=== PATIENT | male | born 1970 | race Caucasian/White ===

== ENCOUNTER 2016-10-27 17:13 | Emergency (ER) | payer OTHER ==
[~2016-10-27] VITALS: Ht 172.7 cm; Wt 125.0 kg
[~2016-10-27 17:13] MED LIST: ALBU8.5H2 INHALATION; ASPI-973 PO; ATOR80TA PO; CLOP75TA28 PO; DOXA4TAB3 PO; FINA5TAB9 PO; FLUO20CA25 PO; FURO40TA4 PO; GABA-502 PO; INSU100V28 SUBQ; INSU100V7 SUBQ; ISOS60TA2 PO; LISI2.5T PO; LOPE2CAP PO; METO25TA99 PO; NITR0.4T6 SL; OXYC1TAB91 PO; PANT20TA2 PO; POTA20TA16 PO; TAMS0.4C29 PO
[2016-10-27 17:14] VITALS: BP 109/55; PULSE 83; RESP 18; O2SAT 100
[2016-10-27 17:35] LABS: BASOPHILS % (AUTO) 0.2 % (0-3); EOSINOPHILS % (AUTO) 1.5 % (0-5); MONOCYTES % (AUTO) 7.8 % (4-12); Mean Corpuscular Hemoglobin 30.4 pg (27.0-35.0); Mean Corpuscular Volume 89.5 fL (81-100); NEUTROPHILS % (AUTO) 68.4 % (40-74); Platelet Count 192 bil/L (150-400)
--- NOTE | 2016-10-27 17:35 | ED.REPORT ---
HPI-Chest Pain 40 and Over Date of Service Oct 27, 2016 ED Provider: Darling Price MD A 46 year old male with a history of smoking, CAD, multiple stents, syncope, diabetes with neuropathy, CHF, stroke, and COPD is brought to the ED via EMS due to chest pain and syncope. The chest pain began at 12:30 today as a sharp, stabbing pain accompanied by shortness of breath. The pt took Nitro, which reduced the pain to a throbbing ache. He experienced a syncopal episode one hour after taking the Nitro, preceded by dizziness and returning chest pain. The pain has been a constant ache since. The pt admits to neck pain, but denies nausea, vomiting, or back pain. He has had nine stents placed in the last year, the last of which was four months ago. Nursing Notes Stated Complaint: CHEST PAIN Chief Complaint: Chest Pain Nursing Notes Reviewed: Yes Allergies: Coded Allergies: Honey Bee (Verified Allergy, Severe, anaphylaxis, 10/27/16) sumatriptan (Verified Allergy, Intermediate, Shakes and burning, 10/27/16) TAPE (Verified Allergy, Mild, blisters, 10/27/16) Scheduled Aspirin (Aspirin) 81 Mg Tablet 81 MG PO DAILY Atorvastatin (Lipitor) 80 Mg Tablet 80 MG PO HS Clopidogrel (Clopidogrel) 75 Mg Tablet 75 MG PO DAILY Doxazosin Mesylate (Doxazosin Mesylate) 4 Mg Tablet 4-8 MG PO HS Finasteride (Finasteride) 5 Mg Tablet 5 MG PO DAILY Fluoxetine (Fluoxetine) 20 Mg Capsule 20 MG PO DAILY Furosemide (Furosemide) 40 Mg Tablet 40 MG PO BID Gabapentin (Gabapentin) 300 Mg Capsule 1,200 MG PO TID Insulin Glargine (Lantus U100 Insulin Vial) 100 Unit/Ml Vial 100 UNIT SUBQ BID Insulin Regular, Human (HUMulin-R U100 Insulin Vial) 100 Unit/1 Ml Vial 80 UNIT SUBQ BIDAC Isosorbide MN ER (Isosorbide MN ER) 60 Mg Tab.er.24h 60 MG PO DAILY Lisinopril (Lisinopril) 2.5 Mg Tablet 2.5 MG PO DAILY Metoprolol Succinate ER (Metoprolol Succinate ER) 25 Mg Tab.er.24h 12.5 MG PO DAILY Pantoprazole DR (Pantoprazole DR) 20 Mg Tablet.dr 20 MG PO DAILY Potassium Chloride (Potassium Chloride) 20 Meq Tab.er.prt 20 MEQ PO DAILY Tamsulosin ER (Tamsulosin ER) 0.4 Mg Cap.er.24h BID Scheduled PRN Albuterol HFA (Proair HFA) 8.5 Gm Hfa.aer.ad 2 PUFFS INHALATION QID PRN PRN For Shortness of Breath Loperamide (Loperamide) 2 Mg Capsule 2-4 MG PO TID PRN PRN For Diarrhea or Loose Stool Nitroglycerin SL (Nitroglycerin SL) 0.4 Mg Tab.subl 0.4 MG SL Q5MIN PRN PRN For Chest Pain Oxycodone HCl/Acetaminophen (Endocet 10-325 mg Tablet) 1 Each Tablet 1-2 EACH PO Q4H PRN PRN For Pain General Time Seen by MD: 17:34 Chief Complaint Chest pain Hx Obtained From: Patient, EMS Arrived By: Ambulance Sudden in Onset?: Yes Onset Occurred: 5 - 8 hours ago Symptom Duration: Since onset Recent Healthcare: Recent doctor visit, Recent hospitalization Similar Sx Previous: Yes Past Medical History Past Medical History Notes: Patient states has had "nine stents" placed at [facility] 08/01/2016, 08/04/16, and 08/26/16 Past Medical History CAD - multiple stents, cardiac caths 02/14, 03/12, 04/11, ad 04/17 w/stent placed to proximal LAD overlapping prior stent and "plavix non-responder" Syncope Type two diabetes with neuropathy Chronic back and leg pain Lower extremity DVT "years ago" per patient, details unclear History of migraines BPH Kidney Stones On Warfarin and Plavix HTN [place] 2014 Reports: COPD, Congestive heart failure, Stroke Reports: Heroin use Past Surgical History Shoulder surgery (joint replacement) Left knee surgery Ganglion cyst in right hand Cardiac stents ("x9" - at [facility]) Reports: Cholecystectomy Family History Both of the patient's parents are still alive Smoking History Current Every Day Smoker Social History Alcohol Use: Denies alcohol use ("not in many years") Drug Use: Denies drug use Other Social History: Good social support, , Local resident 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 Physical Exam Initial Vital Signs Vital Signs (First) Date Time Temp Pulse Resp B/P Pulse Ox O2 Delivery O2 Flow Rate FiO2 10/27/16 17:14 36.8 83 18 109/55 100 Room Air Initial VS: Reviewed, Vital signs normal General/Constitutional: Awake, Alert Respiratory / Chest: Atraumatic, Breath sounds NL, Breath sounds = bilat, No respiratory distress Cardiovascular: Heart rate NL, Regular rhythm, Heart sounds NL Abdomen: Atraumatic, Soft, No guarding, No rebound mild epigastric tenderness Neck: Atraumatic, Supple, Full range of motion generalized c-spine tenderness Back: Atraumatic, Full range of motion Lower Extremity / Pelvis / MS: Atraumatic, Full range of motion Skin: Atraumatic, Color NL, No rash, Warm, Dry Neurologic: Oriented X3, Speech NL, No motor deficits, No sensory deficits Psychiatric: Affect NL, Mood NL Head / Eyes: Atraumatic, Normocephalic, PERRL, EOMI ENT: Atraumatic, Airway patent Mouth: Positive: Mucous membranes dry Upper Extremity / MS: Atraumatic, Full range of motion Interpretation & Diagnostics Lab Results Interpretation Result Diagram: 10/27/16 1725 10/27/16 1725 Test 10/27/16 17:25 10/27/16 19:00 White Blood Count 9.5th/mm3 (3.8-10.1) Red Blood Count 4.38mil/mm3 (4.40-5.80) Hemoglobin 13.3g/dL (13.8-17.2) Hematocrit 39.2% (41.0-50.0) Mean Corpuscular Volume 89.5fL (81-100) Mean Corpuscular Hemoglobin 30.4pg (27.0-35.0) Mean Corpuscular Hemoglobin Concent 33.9% (32.0-37.0) Red Cell Distribution Width 13.3% (12.3-15.4) Platelet Count 192bil/L (150-400) Neutrophils (%) (Auto) 68.4% (40-74) Lymphocytes (%) (Auto) 22.0% (14-46) Monocytes (%) (Auto) 7.8% (4-12) Eosinophils (%) (Auto) 1.5% (0-5) Basophils (%) (Auto) 0.2% (0-3) D-Dimer 0.5mg/L (<0.50) Sodium Level 135mEq/L (134-144) Potassium Level 3.8mEq/L (3.5-5.2) Chloride Level 99mEq/L (97-108) Carbon Dioxide Level 19mmol/L (18-29) Blood Urea Nitrogen 14mg/dL (6-24) Creatinine 0.92mg/dL (0.76-1.27) Estimat Glomerular Filtration Rate 93mL/min (>59) Glucose Level 384mg/dL (60-99) Calcium Level 8.6mg/dL (8.5-10.1) Magnesium Level 1.7mg/dL (1.6-2.6) Total Bilirubin 0.2mg/dL (0.0-1.2) Aspartate Amino Transf (AST/SGOT) 21U/L (0-50) Alanine Aminotransferase (ALT/SGPT) 16U/L (0-44) Alkaline Phosphatase 89U/L (25-150) Total Protein 7.2g/dL (6.4-8.4) Albumin 3.5g/dL (3.4-5.0) Lipase 5U/L (13-60) Hold Pereyra Top Tube Received (Received) Troponin T < 0.010ug/L (0.0-0.011) ECG Interpretation ECG Interpretation: normal sinus rhythm with a rate of 74 no change from previous dated 09/2016 Time: 17:38 Interpreted by: ED physician ECG Interpretation: normal sinus rhythm with a rate of 73 ventricular premature complex no acute change Time: 20:08 Interpreted by: ED physician X-Ray Chest Interpretation Chest Xray Interpretation: IMPRESSION: No acute cardiopulmonary disease process. Dictated by: Cindy Gross MD, PhD on 10/27/2016 at 17:54 Approved by: Cindy Gross MD, PhD on 10/27/2016 at 17:54 Interpretation / Wet Read by: Interpret - Radiologist Re-Eval/Medical Decision Med Decision/Clinical Course The patient states that he had 4 stents placed 4 months ago, and looking all records he had a normal stress test less than a week ago. The patient's pain is atypical and his evaluation here was unremarkable. I called his professor of geology 's office and they were able to look at records and told he had a clean cardiac cath 4 months ago and said he had noncardiac chest pain and he had a normal stress test at the beginning of last month. This is very different from what the patient told me. We requested records from the hospital as of 12 AM they have not been asked to assess we are attempting to call once again. Differential diagnoses considered were acute coronary syndrome, pulmonary embolus, pancreatitis, dissection, and musculoskeletal pain. The patient seemed much more comfortable but continued to have some discomfort upon discharge. I discussed with him his need to be more careful in terms of getting tasks because he is receiving a lot of radiation and has received dye due to the procedures he has had. Source of Hx: Old records Time of Eval: 20:37 Patient Status: Condition improved Re-Evaluation/Progress Note: Pt rechecked, who is resting. Additional history is obtained. Time of Eval: 21:16 Patient Status: Condition improved Re-Evaluation/Progress Note: Pt rechecked, who is resting. He is informed of cardiology consultation and plan for follow up is addressed. Radiology results and the plan for discharge are discussed. The pt understands and agrees with the plan. All questions are addressed at this time. Consultation : Consulted With: Cardiology Call Returned at: 20:50 Note: Consulted with Dr. Lundberg, professor of geology floor tiling professional for Dr. Quintero. Dr. Lundberg provides pt history and recommends discharge. Counseled Regarding: Diagnosis, Lab results, Need for follow-up, When/why to return to ED Discharge & Departure Primary Impression: Non-cardiac chest pain Disposition: Home Discharge Condition All VS Reviewed: Yes Condition: Stable Patient Instructions: Chest Pain (ED) Additional Instructions: There is not an emergent cause for your symptoms at this time, such as heart attack, pulmonary embolism, pneumonia, or pancreatitis. Follow up with your primary care physician for further evaluation. Return to the emergency department if you develop new or worsening symptoms. Referrals: Santiago Funez MD (PCP) Eligio Quintero MD Scribe Attestation Portions of this note were transcribed by Sarah Zarate. I, Dr. Price personally performed the history, physical exam and medical decision-making; I reviewed and confirmed the accuracy of the information in the transcribed note. Signed by: Cindy Blackburn, 10/27/2016, 21:52 copies to: Santiago Funez MD; Eligio Quintero MD Lopez, Jena M MD Oct 27, 2016 17:35 SARAH ZARATE Oct 27, 2016 18:16
--- NOTE | 2016-10-27 17:56 | DRSVH ---
PROCEDURE: X-RAY CHEST ONE VIEW, PORTABLE ([id number]) INDICATIONS: CHEST PAIN TECHNIQUE: One view of the chest was acquired. COMPARISON: [facility], CR, XR CHEST 1VW (PORTABLE), 10/23/2016, 17:17. FINDINGS: Surgical changes and devices: None. Lungs and pleura: No pleural effusions or pneumothorax. Lungs are clear. Mediastinum: Mediastinal contours appear normal. Heart size is normal. Bones and chest wall: No suspicious bony lesions. Overlying soft tissues appear unremarkable. IMPRESSION: No acute cardiopulmonary disease process. Dictated by: Cindy Gross MD, PhD on 10/27/2016 at 17:54 Approved by: Cindy Gross MD, PhD on 10/27/2016 at 17:54
[2016-10-27 18:06] LABS: TROPONIN T < 0.010 ug/L (0.0-0.011)
[2016-10-27 18:15] LABS: Magnesium 1.7 mg/dL (1.6-2.6)
[2016-10-27] MEDS ORDERED: Pantoprazole 4 mg/mL 10 mL Inj IVPUSH ONE (18:15)
[2016-10-27] MEDS ORDERED: HYDROmorphone 0.5 mg/0.5 mL iSecure Syringe IVPUSH ONE ×2 (18:15→19:50)
[2016-10-27 19:03] VITALS: BP 125/62; PULSE 74
[2016-10-27 19:43] VITALS: BP 114/61; PULSE 87; RESP 18
[2016-10-27] MEDS ORDERED: 0.9% Sodium Chloride 500 ML IV ONE (21:05)
[2016-10-27 21:07] VITALS: BP_SYST 113; BP_SYST 117; BP_SYST 123; BP_DIAS 53; BP_DIAS 54; BP_DIAS 63
[2016-10-27 21:24] VITALS: BP 108/61; PULSE 78; RESP 16; O2SAT 99
[2016-10-27] MEDS ORDERED: HYDROcodone-APAP 5-325 mg Tablet PO ONE (21:25)
[2016-10-27 21:47] VITALS: BP 130/54; PULSE 75; RESP 18; O2SAT 97
== END 2016-10-27 21:59 | disposition home or self-care (01) ==
LOC: SED 17:13
DX: R07.89 Other chest pain (principal); R55 Syncope and collapse; R06.02 Shortness of breath; I25.10 Atherosclerotic heart disease of native coronary artery without angina pectoris; E11.21 Type 2 diabetes mellitus with diabetic nephropathy; I10 Essential (primary) hypertension; J44.9 Chronic obstructive pulmonary disease, unspecified; F17.200 Nicotine dependence, unspecified, uncomplicated; I25.2 Old myocardial infarction; Z86.73 Personal history of transient ischemic attack (TIA), and cerebral infarction without residual deficits; Z79.01 Long term (current) use of anticoagulants; Z95.818 Presence of other cardiac implants and grafts; Z88.8 Allergy status to other drugs, medicaments and biological substances; Z79.82 Long term (current) use of aspirin; Z79.4 Long term (current) use of insulin
CPT/HCPCS: 36415; 71010; 80053; 82948; 83690; 83735; 84484; 85025; 85379; 96361; 96374; 96375; 96376; 99285; J1170; J7040

== ENCOUNTER 2016-11-16 19:47 | Emergency (ER) | payer OTHER ==
[~2016-11-16] VITALS: Ht 172.7 cm; Wt 129.6 kg
[2016-11-16 19:56] VITALS: BP 127/71; PULSE 181; RESP 10; O2SAT 95
--- NOTE | 2016-11-16 20:20 | ED.REPORT ---
HPI-Chest Pain 40 and Over Date of Service Nov 16, 2016 ED Provider: Bj Chinchilla MD Pt is a 46 y.o. male with an extensive cardiac history including multiple stents secondary to CAD, hx of [place], HTN, and DM who presents to the ED c/o sharp chest pain radiating to his left shoulder blade and left axilla onset around 1900. He reports associated SOB, since resolved, dizziness, diaphoresis, vomiting, and a near syncopal episode. Pt states that he had experienced several dizzy spells prior to the episode at 1900. He states that he took nitro after the episode and it provided pain relief for a short period. He also states that he was wearing a monitor at the time of onset and it beeped, he reports pressing the button but nothing happening. Pt is currently on Plavix. Nursing Notes Stated Complaint: CHEST PAIN, HEART MONITOR WENT OFF Chief Complaint: Chest Pain Nursing Notes Reviewed: Yes Allergies: Coded Allergies: Honey Bee (Verified Allergy, Severe, anaphylaxis, 10/27/16) sumatriptan (Verified Allergy, Intermediate, Shakes and burning, 10/27/16) TAPE (Verified Allergy, Mild, blisters, 10/27/16) Scheduled Aspirin (Aspirin) 81 Mg Tablet 81 MG PO DAILY Atorvastatin (Lipitor) 80 Mg Tablet 80 MG PO HS Clopidogrel (Clopidogrel) 75 Mg Tablet 75 MG PO DAILY Doxazosin Mesylate (Doxazosin Mesylate) 4 Mg Tablet 4-8 MG PO HS Finasteride (Finasteride) 5 Mg Tablet 5 MG PO DAILY Fluoxetine (Fluoxetine) 20 Mg Capsule 20 MG PO DAILY Furosemide (Furosemide) 40 Mg Tablet 40 MG PO BID Gabapentin (Gabapentin) 300 Mg Capsule 1,200 MG PO TID Insulin Glargine (Lantus U100 Insulin Vial) 100 Unit/Ml Vial 100 UNIT SUBQ BID Insulin Regular, Human (HUMulin-R U100 Insulin Vial) 100 Unit/1 Ml Vial 80 UNIT SUBQ BIDAC Isosorbide MN ER (Isosorbide MN ER) 60 Mg Tab.er.24h 60 MG PO DAILY Lisinopril (Lisinopril) 2.5 Mg Tablet 2.5 MG PO DAILY Metoprolol Succinate ER (Metoprolol Succinate ER) 25 Mg Tab.er.24h 12.5 MG PO DAILY Pantoprazole DR (Pantoprazole DR) 20 Mg Tablet.dr 20 MG PO DAILY Potassium Chloride (Potassium Chloride) 20 Meq Tab.er.prt 20 MEQ PO DAILY Tamsulosin ER (Tamsulosin ER) 0.4 Mg Cap.er.24h BID Scheduled PRN Albuterol HFA (Proair HFA) 8.5 Gm Hfa.aer.ad 2 PUFFS INHALATION QID PRN PRN For Shortness of Breath Loperamide (Loperamide) 2 Mg Capsule 2-4 MG PO TID PRN PRN For Diarrhea or Loose Stool Nitroglycerin SL (Nitroglycerin SL) 0.4 Mg Tab.subl 0.4 MG SL Q5MIN PRN PRN For Chest Pain Oxycodone HCl/Acetaminophen (Endocet 10-325 mg Tablet) 1 Each Tablet 1-2 EACH PO Q4H PRN PRN For Pain General Time Seen by MD: 20:18 Chief Complaint Chest pain Hx Obtained From: Patient Sudden in Onset?: Yes Onset Occurred: 1 - 4 hours ago Symptom Duration: Since onset Location: : Chest left: Chest right Quality: Sharp Radiation: : Arm left: Shoulder left Severity: Current: Severe Similar Sx Previous: Yes Past Medical History Past Medical History Notes: Patient states has had "nine stents" placed at [facility] 08/01/2016, 08/04/16, and 08/26/16 Past Medical History CAD - multiple stents, cardiac caths 02/14, 03/12, 04/11, ad 04/17 w/stent placed to proximal LAD overlapping prior stent and "plavix non-responder" Syncope Type two diabetes with neuropathy Chronic back and leg pain Lower extremity DVT "years ago" per patient, details unclear History of migraines BPH Kidney Stones On Warfarin and Plavix HTN [place] 2014 Reports: COPD, Congestive heart failure, Stroke Reports: Heroin use Past Surgical History Shoulder surgery (joint replacement) Left knee surgery Ganglion cyst in right hand Cardiac stents ("x9" - at [facility]) Reports: Cholecystectomy Family History Both of the patient's parents are still alive Smoking History Current Every Day Smoker Social History Alcohol Use: Denies alcohol use Drug Use: Denies drug use Other Social History: Good social support, , Local resident 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 Physical Exam Initial Vital Signs Vital Signs (First) Date Time Temp Pulse Resp B/P Pulse Ox O2 Delivery O2 Flow Rate FiO2 11/16/16 19:56 36.7 181 10 127/71 95 Room Air Initial VS: Reviewed Head / Eyes: Atraumatic, Normocephalic Extremities: Vascular intact, Neuro intact Skin: Warm, Dry, No cyanosis Neurologic: Alert, Oriented, Nonfocal Psychiatric: Mood/affect normal, Behavior normal, Normal thought content General/Constitutional: Awake, Alert, Well appearing, Well developed, Well hydrated, Well nourished, Not toxic appearing Respiratory / Chest: Atraumatic, Breath sounds NL, Breath sounds = bilat, No respiratory distress, No rales, No rhonchi, No wheezing, No retractions, No stridor, No chest tenderness Cardiovascular: Heart rate NL, Regular rhythm, Heart sounds NL, No gallop, No murmurs, No rubs, Peripheral circulation NL Abdomen: Atraumatic, Soft, Non-tender, No guarding, No rebound Interpretation & Diagnostics Lab Results Interpretation Result Diagram: 11/16/16203811/16/162038 Test 11/16/16 20:39 11/16/16 22:39 White Blood Count 7.9th/mm3 (3.8-10.1) Red Blood Count 4.54mil/mm3 (4.40-5.80) Hemoglobin 13.5g/dL (13.8-17.2) Hematocrit 40.2% (41.0-50.0) Mean Corpuscular Volume 88.5fL (81-100) Mean Corpuscular Hemoglobin 29.7pg (27.0-35.0) Mean Corpuscular Hemoglobin Concent 33.6% (32.0-37.0) Red Cell Distribution Width 13.1% (12.3-15.4) Platelet Count 196bil/L (150-400) Neutrophils (%) (Auto) 57.2% (40-74) Lymphocytes (%) (Auto) 32.2% (14-46) Monocytes (%) (Auto) 8.2% (4-12) Eosinophils (%) (Auto) 2.0% (0-5) Basophils (%) (Auto) 0.3% (0-3) Prothrombin Time 10.0sec (8.1-12.5) Prothromb Time International Ratio 0.94ratio Activated Partial Thromboplast Time 25.6sec (22.8-33.0) Sodium Level 136mEq/L (134-144) Potassium Level 3.9mEq/L (3.5-5.2) Chloride Level 100mEq/L (97-108) Carbon Dioxide Level 23mmol/L (18-29) Blood Urea Nitrogen 15mg/dL (6-24) Creatinine 0.90mg/dL (0.76-1.27) Estimat Glomerular Filtration Rate 96mL/min (>59) Glucose Level 179mg/dL (60-99) Calcium Level 8.6mg/dL (8.5-10.1) Magnesium Level 1.8mg/dL (1.6-2.6) Total Bilirubin 0.2mg/dL (0.0-1.2) Aspartate Amino Transf (AST/SGOT) 18U/L (0-50) Alanine Aminotransferase (ALT/SGPT) 17U/L (0-44) Alkaline Phosphatase 88U/L (25-150) Pro-B-Type Natriuretic Peptide 153.6pg/mL (0-121) Total Protein 7.1g/dL (6.4-8.4) Albumin 3.7g/dL (3.4-5.0) Troponin T 0.010ug/L (0.0-0.011) Point of Care Testing: Troponin normal General Lab Results Interp 1: Troponin # 1 normal, Troponin # 2 normal ECG Interpretation ECG Interpretation: No ST changes Q-wave in V1 Time: 20:20 Interpreted by: ED physician Normal ECG Interpretation: Normal rate (78), Normal sinus rhythm X-Ray Chest Interpretation Chest Xray Interpretation: IMPRESSION: No acute pulmonary process. Dictated by: China Anderson M.D. on 11/16/2016 at 20:59 Approved by: China Anderson M.D. on 11/16/2016 at 20:59 Re-Eval/Medical Decision Med Decision/Clinical Course 46-year-old male history of CAD with multiple stents presenting with his typical chronic chest pain left chest started earlier this evening. Reports several episodes of lightheadedness which resolved spontaneously. He has a Holter monitor in place but reports it was not working. EKG no changes. Troponins negative 2. Patient with recent CT angiogram no evidence of PE within the last 3 weeks. He had a stress test recent admission 3 weeks ago which was normal. Given negative workup as above, negative troponins 2, I discussed with the patient that I have low suspicion for acute cardiac ischemia and he would like to go home. Patient is advised to return immediately should he have any new or worsening chest pain, shortness breath, any other associated symptoms. He is advised to follow-up with cloth shader next week and his primary doctor in 2 days. Source of Hx: Old records Time of Eval: 22:30 Patient Status: Pain improved Re-Evaluation/Progress Note: Pt rechecked. Discussed lab results. Pt states he is feeling improved. Discussed plan for discharge if repeat troponin is normal, pt understands and agrees with plan. Time of Eval: 23:33 Patient Status: Pain worse Re-Evaluation/Progress Note: Pt rechecked. Pt is still in pain. Discuused plan for discharge, pt understands and agrees with plan. Counseled Regarding: Diagnosis Discharge & Departure Primary Impression: Chest pain Chest pain type: unspecified Qualified Code: R07.9 - Chest pain, unspecified Disposition: Home Discharge Condition All VS Reviewed: Yes Condition: Stable Additional Instructions: We did not find any serious mechanism for your chest pain today. Follow-up with your cloth shader in 2 days. Seek care if you begin to experience worsening chest pain, difficulty breathing , or any new or worsening symptoms. Referrals: Santiago Funez MD (PCP) Cindy Attestation Portions of this note were transcribed by Yehuda Noble I, Dr. Chinchilla personally performed the history, physical exam and medical decision-making; I reviewed and confirmed the accuracy of the information in the transcribed note. Signed by: Cindy Hammond, 11/16/16 and 2332. copies to: Santiago Funez MD, Ben M MD Nov 16, 2016 20:20 YEHUDA NOBLE Nov 16, 2016 20:34
[2016-11-16 20:47] LABS: BASOPHILS % (AUTO) 0.3 % (0-3); MONOCYTES % (AUTO) 8.2 % (4-12); Mean Corpuscular Hemoglobin 29.7 pg (27.0-35.0); Mean Corpuscular Volume 88.5 fL (81-100); NEUTROPHILS % (AUTO) 57.2 % (40-74); Platelet Count 196 bil/L (150-400)
--- NOTE | 2016-11-16 21:01 | DRSVH ---
PROCEDURE: X-RAY CHEST ONE VIEW, PORTABLE ([id number]) INDICATIONS: chest pain TECHNIQUE: One view of the chest was acquired. COMPARISON: [facility], CR, XR CHEST 1VW (PORTABLE), 10/27/2016, 17:28. FINDINGS: Surgical changes and devices: None. Lungs and pleura: No pleural effusions or pneumothorax. Lungs are clear. Mediastinum: Mediastinal contours appear normal. Heart size is normal. Bones and chest wall: No suspicious bony lesions. Overlying soft tissues appear unremarkable. IMPRESSION: No acute pulmonary process. Dictated by: China Anderson M.D. on 11/16/2016 at 20:59 Approved by: China Anderson M.D. on 11/16/2016 at 20:59
[2016-11-16 21:14] LABS: INR 0.94 ratio
[2016-11-16 21:20] LABS: TROPONIN T 0.01 ug/L (0.0-0.011)
[2016-11-16 21:26] VITALS: BP 109/67; PULSE 77; RESP 14; O2SAT 93
[2016-11-16 21:31] LABS: Magnesium 1.8 mg/dL (1.6-2.6)
[2016-11-16] MEDS ORDERED: HYDROmorphone 0.5 mg/0.5 mL iSecure Syringe IVPUSH ONE (23:35)
[2016-11-17] VITALS: BP 106/57; PULSE 71; RESP 16; O2SAT 94
== END 2016-11-17 00:01 | disposition home or self-care (01) ==
LOC: SED 19:47
DX: R07.9 Chest pain, unspecified (principal); R06.02 Shortness of breath; R42 Dizziness and giddiness; R61 Generalized hyperhidrosis; R11.10 Vomiting, unspecified; R55 Syncope and collapse; I25.10 Atherosclerotic heart disease of native coronary artery without angina pectoris; I25.2 Old myocardial infarction; I10 Essential (primary) hypertension; E11.21 Type 2 diabetes mellitus with diabetic nephropathy; J44.9 Chronic obstructive pulmonary disease, unspecified; F17.200 Nicotine dependence, unspecified, uncomplicated; Z79.01 Long term (current) use of anticoagulants; Z98.61 Coronary angioplasty status; Z86.73 Personal history of transient ischemic attack (TIA), and cerebral infarction without residual deficits; Z88.8 Allergy status to other drugs, medicaments and biological substances; Z79.82 Long term (current) use of aspirin; Z79.4 Long term (current) use of insulin
CPT/HCPCS: 36415; 71010; 80053; 83735; 83880; 84484; 85025; 85610; 85730; 93005; 96374; 96375; 96376; 99285; J1170; J2270

== ENCOUNTER 2016-11-20 19:21 | Emergency (ER) | payer OTHER ==
[~2016-11-20] VITALS: Ht 172.7 cm; Wt 129.6 kg
[2016-11-20 19:28] VITALS: BP 111/72; PULSE 84; RESP 16; O2SAT 96
[2016-11-20 19:54] VITALS: BP 130/69; PULSE 76; RESP 18; O2SAT 95
[2016-11-20 20:01] LABS: BASOPHILS % (AUTO) 0.4 % (0-3); MONOCYTES % (AUTO) 8.1 % (4-12); Mean Corpuscular Hemoglobin 30.1 pg (27.0-35.0); Mean Corpuscular Volume 87.3 fL (81-100); NEUTROPHILS % (AUTO) 60.9 % (40-74); Platelet Count 193 bil/L (150-400)
[2016-11-20 20:30] LABS: TROPONIN T < 0.010 ug/L (0.0-0.011)
[2016-11-20 20:35] LABS: Magnesium 1.9 mg/dL (1.6-2.6)
--- NOTE | 2016-11-20 20:50 | DRSVH ---
PROCEDURE: X-RAY CHEST ONE VIEW, PORTABLE ([id number]) INDICATIONS: CHEST PAIN TECHNIQUE: One view of the chest was acquired. COMPARISON: [facility], CR, XR CHEST 1VW (PORTABLE), 11/16/2016, 20:35. FINDINGS: Surgical changes and devices: None. Lungs and pleura: No pleural effusions or pneumothorax. Patchy right basilar opacities. Mediastinum: Mediastinal contours appear normal. Heart size is normal. Bones and chest wall: No suspicious bony lesions. Overlying soft tissues appear unremarkable. IMPRESSION: Mildly increased patchy right basilar opacities possibly low-grade aspiration/atelectasis although cannot exclude early pneumonia. Dictated by: Jose Smith M.D. on 11/20/2016 at 20:47 Approved by: Jose Smith M.D. on 11/20/2016 at 20:48
--- NOTE | 2016-11-20 21:16 | ED.REPORT ---
HPI-Chest Pain 40 and Over Date of Service Nov 20, 2016 ED Provider: Dr. Randolph Recinos MD A 46 year old male with a history of multiple stents secondary to CAD, COPD, CHF , CT, hypertension, type II diabetes and BPH presents to the ED complaining of sudden onset chest pain that began yesterday. Patient began to vomit shortly after the pain began. He was seen in the ED on 10/27 and 11/16 for similar symptoms. Patient was discharged on 11/16 in good condition after a reassuring EKG and Chest X-ray. He had a normal stress test approx. one week ago. Patient currently takes Warfarin and Plavix. He is scheduled for a TURP on 12/10 for his BPH. Nursing Notes Stated Complaint: CHEST PAIN Chief Complaint: Chest Pain Nursing Notes Reviewed: Yes Allergies: Coded Allergies: Honey Bee (Verified Allergy, Severe, anaphylaxis, 10/27/16) sumatriptan (Verified Allergy, Intermediate, Shakes and burning, 10/27/16) TAPE (Verified Allergy, Mild, blisters, 10/27/16) Scheduled Aspirin (Aspirin) 81 Mg Tablet 81 MG PO DAILY Atorvastatin (Lipitor) 80 Mg Tablet 80 MG PO HS Clopidogrel (Clopidogrel) 75 Mg Tablet 75 MG PO DAILY Doxazosin Mesylate (Doxazosin Mesylate) 4 Mg Tablet 4-8 MG PO HS Finasteride (Finasteride) 5 Mg Tablet 5 MG PO DAILY Fluoxetine (Fluoxetine) 20 Mg Capsule 20 MG PO DAILY Furosemide (Furosemide) 40 Mg Tablet 40 MG PO BID Gabapentin (Gabapentin) 300 Mg Capsule 1,200 MG PO TID Insulin Glargine (Lantus U100 Insulin Vial) 100 Unit/Ml Vial 100 UNIT SUBQ BID Insulin Regular, Human (HUMulin-R U100 Insulin Vial) 100 Unit/1 Ml Vial 80 UNIT SUBQ BIDAC Isosorbide MN ER (Isosorbide MN ER) 60 Mg Tab.er.24h 60 MG PO DAILY Lisinopril (Lisinopril) 2.5 Mg Tablet 2.5 MG PO DAILY Metoprolol Succinate ER (Metoprolol Succinate ER) 25 Mg Tab.er.24h 12.5 MG PO DAILY Pantoprazole DR (Pantoprazole DR) 20 Mg Tablet.dr 20 MG PO DAILY Potassium Chloride (Potassium Chloride) 20 Meq Tab.er.prt 20 MEQ PO DAILY Tamsulosin ER (Tamsulosin ER) 0.4 Mg Cap.er.24h BID Scheduled PRN Albuterol HFA (Proair HFA) 8.5 Gm Hfa.aer.ad 2 PUFFS INHALATION QID PRN PRN For Shortness of Breath Loperamide (Loperamide) 2 Mg Capsule 2-4 MG PO TID PRN PRN For Diarrhea or Loose Stool Nitroglycerin SL (Nitroglycerin SL) 0.4 Mg Tab.subl 0.4 MG SL Q5MIN PRN PRN For Chest Pain Oxycodone HCl/Acetaminophen (Endocet 10-325 mg Tablet) 1 Each Tablet 1-2 EACH PO Q4H PRN PRN For Pain General Time Seen by MD: 21:15 Chief Complaint Chest pain Hx Obtained From: Patient Arrived By: Walk-in Sudden in Onset?: No Onset Occurred: 5 - 8 hours ago Symptom Duration: Since onset Location: : Chest left: Chest right Quality: Painful Radiation: : Does not radiate Migration/Movement: Reports: None Severity: Current: Mild Severity: Maximum: Moderate Pertinent Negative: Pt denies other symptoms Recent Healthcare: Recent doctor visit, Recent hospitalization Risk Factors )( CAD Risk Stratification Diabetes mellitus Hypertension Known CAD Risk factors reviewed )( TAD Risk Stratification Hypertension Risk factors reviewed )( PE Risk Stratification Risk factors reviewed Past Medical History Past Medical History Notes: Patient states has had "nine stents" placed at [facility] 08/01/2016, 08/04/16, and 08/26/16 Past Medical History CAD - multiple stents, cardiac caths 02/14, 03/12, 04/11, ad 04/17 w/stent placed to proximal LAD overlapping prior stent and "plavix non-responder" Syncope Type two diabetes with neuropathy Chronic back and leg pain Lower extremity DVT "years ago" per patient, details unclear History of migraines BPH Kidney Stones On Warfarin and Plavix HTN CT 2014 Reports: COPD, Congestive heart failure, Stroke Reports: Heroin use Past Surgical History Shoulder surgery (joint replacement) Left knee surgery Ganglion cyst in right hand Cardiac stents ("x9" - at [facility]) Reports: Cholecystectomy Family History Both of the patient's parents are still alive Smoking History Current Every Day Smoker Social History Alcohol Use: Denies alcohol use Drug Use: Denies drug use Other Social History: Good social support, , Local resident 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 Physical Exam Initial Vital Signs Vital Signs (First) Date Time Temp Pulse Resp B/P Pulse Ox O2 Delivery O2 Flow Rate FiO2 11/20/16 19:28 37.1 84 16 111/72 96 Room Air Initial VS: Reviewed Head / Eyes: Atraumatic, Normocephalic, PERRL Extremities: Vascular intact, Neuro intact, No swelling, No tenderness Skin: Warm, Dry, No cyanosis Neurologic: Alert, Oriented, Nonfocal Psychiatric: Mood/affect normal, Behavior normal, Normal thought content General/Constitutional: Awake, Alert Respiratory / Chest: Atraumatic, Breath sounds NL, Breath sounds = bilat Cardiovascular: Heart rate NL, Regular rhythm, Heart sounds NL Abdomen: Atraumatic, Soft Interpretation & Diagnostics Lab Results Interpretation Result Diagram: 11/20/16194411/20/161944 Test 11/20/16 19:45 11/20/16 19:58 11/20/16 23:43 White Blood Count 8.6th/mm3 (3.8-10.1) Red Blood Count 4.95mil/mm3 (4.40-5.80) Hemoglobin 14.9g/dL (13.8-17.2) Hematocrit 43.2% (41.0-50.0) Mean Corpuscular Volume 87.3fL (81-100) Mean Corpuscular Hemoglobin 30.1pg (27.0-35.0) Mean Corpuscular Hemoglobin Concent 34.5% (32.0-37.0) Red Cell Distribution Width 12.9% (12.3-15.4) Platelet Count 193bil/L (150-400) Neutrophils (%) (Auto) 60.9% (40-74) Lymphocytes (%) (Auto) 28.4% (14-46) Monocytes (%) (Auto) 8.1% (4-12) Eosinophils (%) (Auto) 2.0% (0-5) Basophils (%) (Auto) 0.4% (0-3) Sodium Level 134mEq/L (134-144) Potassium Level 3.8mEq/L (3.5-5.2) Chloride Level 97mEq/L (97-108) Carbon Dioxide Level 22mmol/L (18-29) Blood Urea Nitrogen 14mg/dL (6-24) Creatinine 0.85mg/dL (0.76-1.27) Estimat Glomerular Filtration Rate 102mL/min (>59) Glucose Level 212mg/dL (60-99) Calcium Level 8.8mg/dL (8.5-10.1) Magnesium Level 1.9mg/dL (1.6-2.6) Total Bilirubin 0.3mg/dL (0.0-1.2) Aspartate Amino Transf (AST/SGOT) 20U/L (0-50) Alanine Aminotransferase (ALT/SGPT) 19U/L (0-44) Alkaline Phosphatase 109U/L (25-150) Total Protein 7.9g/dL (6.4-8.4) Albumin 3.9g/dL (3.4-5.0) Hold Purple Top Tube Received (Received) D-Dimer < 0.5mg/L (<0.50) Hold Blue Top Tube Received (Received) Procalcitonin < 0.05ng/mL (See Comment) Hold Red Top Tube Received (Received) Hold Sanford Top Tube Received (Received) Hold Pereyra Top Tube Received (Received) Troponin T 0.010ug/L (0.0-0.011) Pulse Oximetry Interpretation Pulse Oximetry: Pulse Ox normal ECG Interpretation ECG Interpretation: Normal Sinus Rhythm Rate 79 Time: 19:43 Interpreted by: ED physician Normal ECG Interpretation: No change from prior ECGs (11/16) Rhythm Strip Interpretation : Time: 19:45 Rhythm Strip Interpretation: Interpreted by me, Normal sinus rhythm X-Ray Chest Interpretation Chest Xray Interpretation: IMPRESSION: Mildly increased patchy right basilar opacities possibly low-grade aspiration/atelectasis although cannot exclude early pneumonia. Dictated by: Jose Smith M.D. on 11/20/2016 at 20:47 Interpretation / Wet Read by: Interpret - Radiologist Re-Eval/Medical Decision Med Decision/Clinical Course Mr. Koenig has been worked up many many times. He has had a recent normal CT scan and stress test. He has coronary artery disease and I believe that he has chronic recalcitrant possibly ischemic chest pain. Either way his pain was adequately treated with morphine. 2 troponins that are roughly 6 hours apart were normal. His EKG was good and his d-dimer was negative. Acute CT highly unlikely. I do believe that he has chest pains we treated with morphine. He is wearing a Holter or some other form of event monitor and this may help elucidate some cause for symptoms. He was in sinus rhythm while he was on our telemetry monitoring. He did not feel that he needed be admitted. About exactly sure what we would do for him anyways other than pain control he now has some semblance of pain control. I did ask him to return in odds are wanted to do this many many times until sort out exactly what the cause of his pain is. He was appreciated with this. Routine opiate warnings were given. He is discharged in stable condition. Time of Eval: 01:49 Patient Status: Condition improved Re-Evaluation/Progress Note: Patient is rechecked. He is informed of his lab results, EKG results, X-ray results and diagnoses. All of the patient's questions are addressed. He understands and agrees with the treatment plan to discharge. Counseled Regarding: Diagnosis, Lab results, Need for follow-up, When/why to return to ED Discharge & Departure Primary Impression: Chest pain Chest pain type: precordial chest pain Qualified Code: R07.2 - Precordial pain Disposition: Home Discharge Condition All VS Reviewed: Yes Condition: Stable Patient Instructions: Chest Pain (ED) Additional Instructions: Call your regional property manager first thing in the morning and have your Holter monitor reviewed. Your EKG and serial heart blood tests were normal today. A heart attack seems very unlikely. You have had a recently normal stress test. The blood clot screening blood test was negative as well. The chest x-ray did show atelectasis or possibly developing pneumonia however the remainder of your labs were normal. If your develop a fever or cough or produce any purulent sputum then you need to be on an antibiotic. Either way call your doctor first thing in the morning and set up a follow-up appointment. Do not drive tonight as you have received sedating medications. Do not hesitate to return if you have any further chest pain or any new or worsening symptoms. Referrals: Santiago Funez MD (PCP) Scribe Attestation Portions of this note were transcribed by Perla Walker. I, Dr. Recinos personally performed the history, physical exam and medical decision-making; I reviewed and confirmed the accuracy of the information in the transcribed note. Signed by: Cindy Ford, 11/21/16 0150. copies to: Santiago Funez MD, Randolph Guillen DO Nov 20, 2016 21:16 PERLA WALKER Nov 20, 2016 21:42
[2016-11-20 23:34] VITALS: BP 163/88; PULSE 77; RESP 18; O2SAT 94
[2016-11-21 02:00] VITALS: BP 109/57; PULSE 81; RESP 14; O2SAT 94
[2016-11-22] MEDS ORDERED: PRAS10TA5 PO (00:10)
[2016-11-22] MEDS ORDERED: OXYC1TAB91 PO (00:10)
[2016-11-22] MEDS ORDERED: FINA5TAB9 PO (00:10)
== END 2016-11-21 02:03 | disposition home or self-care (01) ==
LOC: SED 19:21
DX: R07.2 Precordial pain (principal); I25.10 Atherosclerotic heart disease of native coronary artery without angina pectoris; J44.9 Chronic obstructive pulmonary disease, unspecified; I50.9 Heart failure, unspecified; I10 Essential (primary) hypertension; E11.40 Type 2 diabetes mellitus with diabetic neuropathy, unspecified; I25.2 Old myocardial infarction; Z79.82 Long term (current) use of aspirin; Z79.4 Long term (current) use of insulin; Z79.01 Long term (current) use of anticoagulants; F17.200 Nicotine dependence, unspecified, uncomplicated; Z91.030 Bee allergy status
CPT/HCPCS: 36415; 71010; 80053; 82308; 83735; 84484; 85025; 85379; 93005; 96374; 96376; 99285; J2270

== ENCOUNTER 2016-11-21 19:12 | Observation (INO) | payer OTHER ==
[~2016-11-21] VITALS: Ht 172.7 cm; Wt 128.7 kg
[2016-11-21 19:18] VITALS: BP 127/78; PULSE 82; RESP 18; O2SAT 95
--- NOTE | 2016-11-21 19:43 | ED.REPORT ---
HPI-Chest Pain 40 and Over Date of Service Nov 21, 2016 ED Provider: Randolph Recinos DO Pt is a 46 y.o. male with an extensive medical hx including CAD, CHF, DM, HTN, and hx of stroke and AR who presents to the ED with a primary complaint of chest pain, described as pressure and radiating to his back,for which he has been seen twice for this week (11/16 and 11/20). 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 Upon arrival to the ED the pt's daughter is concerned as pt had experienced an episode of garbled speech last known normal 1849, lasting 15 minutes, with associated left- sided facial and tongue numbness. These sx are newly onset today and upon examination have resolved. Pt also reports associated weakness, headache, and incontinence. Pt is currently on Warfarin. Nursing Notes Stated Complaint: CHEST PAIN Chief Complaint: Chest Pain Nursing Notes Reviewed: Yes Allergies: Coded Allergies: Honey Bee (Verified Allergy, Severe, anaphylaxis, 10/27/16) sumatriptan (Verified Allergy, Intermediate, Shakes and burning, 10/27/16) TAPE (Verified Allergy, Mild, blisters, 10/27/16) Scheduled Aspirin (Aspirin) 81 Mg Tablet 81 MG PO DAILY Atorvastatin (Lipitor) 80 Mg Tablet 80 MG PO HS Clopidogrel (Clopidogrel) 75 Mg Tablet 75 MG PO DAILY Doxazosin Mesylate (Doxazosin Mesylate) 4 Mg Tablet 4-8 MG PO HS Finasteride (Finasteride) 5 Mg Tablet 5 MG PO DAILY Fluoxetine (Fluoxetine) 20 Mg Capsule 20 MG PO DAILY Furosemide (Furosemide) 40 Mg Tablet 40 MG PO BID Gabapentin (Gabapentin) 300 Mg Capsule 1,200 MG PO TID Insulin Glargine (Lantus U100 Insulin Vial) 100 Unit/Ml Vial 100 UNIT SUBQ BID Insulin Regular, Human (HUMulin-R U100 Insulin Vial) 100 Unit/1 Ml Vial 80 UNIT SUBQ BIDAC Isosorbide MN ER (Isosorbide MN ER) 60 Mg Tab.er.24h 60 MG PO DAILY Lisinopril (Lisinopril) 2.5 Mg Tablet 2.5 MG PO DAILY Metoprolol Succinate ER (Metoprolol Succinate ER) 25 Mg Tab.er.24h 12.5 MG PO DAILY Pantoprazole DR (Pantoprazole DR) 20 Mg Tablet.dr 20 MG PO DAILY Potassium Chloride (Potassium Chloride) 20 Meq Tab.er.prt 20 MEQ PO DAILY Tamsulosin ER (Tamsulosin ER) 0.4 Mg Cap.er.24h BID Scheduled PRN Albuterol HFA (Proair HFA) 8.5 Gm Hfa.aer.ad 2 PUFFS INHALATION QID PRN PRN For Shortness of Breath Loperamide (Loperamide) 2 Mg Capsule 2-4 MG PO TID PRN PRN For Diarrhea or Loose Stool Nitroglycerin SL (Nitroglycerin SL) 0.4 Mg Tab.subl 0.4 MG SL Q5MIN PRN PRN For Chest Pain Oxycodone HCl/Acetaminophen (Endocet 10-325 mg Tablet) 1 Each Tablet 1-2 EACH PO Q4H PRN PRN For Pain General Time Seen by MD: 19:43 Chief Complaint Chest pain Hx Obtained From: Patient, Daughter Arrived By: Walk-in Sudden in Onset?: Yes Onset Occurred: Just prior to arrival Symptom Duration: Since onset Location: : Chest left: Chest right Quality: Painful Radiation: : Back Migration/Movement: Reports: Chest to back Severity: Current: Severe Recent Healthcare: Recent doctor visit, Recent testing, Prior workup Similar Sx Previous: Yes Risk Factors NIH Stroke Scale Level of Consciousness: Alert and responsive (0) Ask Month & Age: Both questions right (0) Open/Close Eyes/Hand C Python Developer: Performs both tasks (0) Horizontal EO Movements: None (0) Visual Rodriguez: No visual loss (0) Facial Palsy: Normal symmetry (0) Right Arm Motor Drift (10s): No drift 10 sec (0) Left Arm Motor Drift (10s): No drift 10 sec (0) Right Leg Motor Drift (5s): No drift 5 sec (0) Left Leg Motor Drift (5s): No drift 5 sec (0) Limb Ataxia FNF/Heel-Pantoja: No ataxia (0) Sensation (Arms/Legs/Face): No sensory loss (0) Language Aphasia: No aphasia, normal (0) Dysarthria: No dysarthria, normal (0) Extinction/Inattention: No exctinct/inattent (0) NIHSS Score: 0 Time NIHSS Performed: 21:05 Date NIHSS Performed: Nov 21, 2016 Past Medical History Past Medical History Notes: Patient states has had "nine stents" placed at [facility] 08/01/2016, 08/04/16, and 08/26/16 Past Medical History CAD - multiple stents, cardiac caths 02/14, 03/12, 04/11, ad 04/17 w/stent placed to proximal LAD overlapping prior stent and "plavix non-responder" Syncope Type two diabetes with neuropathy Chronic back and leg pain Lower extremity DVT "years ago" per patient, details unclear History of migraines BPH Kidney Stones On Warfarin and Plavix HTN [place] 2014 Reports: COPD, Congestive heart failure, Stroke Reports: Heroin use Past Surgical History Shoulder surgery (joint replacement) Left knee surgery Ganglion cyst in right hand Cardiac stents ("x9" - at [facility]) Reports: Cholecystectomy Family History Both of the patient's parents are still alive Smoking History Current Every Day Smoker Social History Alcohol Use: Denies alcohol use Drug Use: Denies drug use Other Social History: Good social support, , Local resident 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 Female: Reports: Incontinence Physical Exam Initial Vital Signs Vital Signs (First) Date Time Temp Pulse Resp B/P Pulse Ox O2 Delivery O2 Flow Rate FiO2 11/21/16 19:18 36.6 82 18 127/78 95 Room Air Initial VS: Reviewed Head / Eyes: Atraumatic, Normocephalic, PERRL Extremities: Vascular intact, Neuro intact Skin: Warm, Dry, No cyanosis Neurologic: Alert, Oriented, Nonfocal Psychiatric: Mood/affect normal, Behavior normal, Normal thought content General/Constitutional: Awake, Alert, Well appearing, Well developed, Well hydrated, Well nourished Appearance / Presentation: Positive: Obese, morbidly Cardiovascular: Heart rate NL, Heart sounds NL, Peripheral circulation NL Abdomen: Atraumatic, Soft, No guarding, No rebound, No distention Neurologic: Oriented X3, Speech NL, No motor deficits Interpretation & Diagnostics Lab Results Interpretation Result Diagram: 11/21/16194711/21/161947 Test 11/21/16 19:48 11/21/16 21:46 White Blood Count 8.1th/mm3 (3.8-10.1) Red Blood Count 4.65mil/mm3 (4.40-5.80) Hemoglobin 14.0g/dL (13.8-17.2) Hematocrit 41.1% (41.0-50.0) Mean Corpuscular Volume 88.4fL (81-100) Mean Corpuscular Hemoglobin 30.1pg (27.0-35.0) Mean Corpuscular Hemoglobin Concent 34.1% (32.0-37.0) Red Cell Distribution Width 13.0% (12.3-15.4) Platelet Count 183bil/L (150-400) Neutrophils (%) (Auto) 62.7% (40-74) Lymphocytes (%) (Auto) 27.1% (14-46) Monocytes (%) (Auto) 7.8% (4-12) Eosinophils (%) (Auto) 2.1% (0-5) Basophils (%) (Auto) 0.2% (0-3) Sodium Level 137mEq/L (134-144) Potassium Level 3.9mEq/L (3.5-5.2) Chloride Level 99mEq/L (97-108) Carbon Dioxide Level 22mmol/L (18-29) Blood Urea Nitrogen 14mg/dL (6-24) Creatinine 0.88mg/dL (0.76-1.27) Estimat Glomerular Filtration Rate 98mL/min (>59) Glucose Level 399mg/dL (60-99) Calcium Level 8.5mg/dL (8.5-10.1) Magnesium Level 1.9mg/dL (1.6-2.6) Total Bilirubin 0.3mg/dL (0.0-1.2) Aspartate Amino Transf (AST/SGOT) 23U/L (0-50) Alanine Aminotransferase (ALT/SGPT) 20U/L (0-44) Alkaline Phosphatase 110U/L (25-150) Troponin T < 0.010ug/L (0.0-0.011) Total Protein 7.5g/dL (6.4-8.4) Albumin 3.9g/dL (3.4-5.0) Hold Pereyra Top Tube Received (Received) Hold Urine Received (Received) ECG Interpretation Time: 20:00 Interpreted by: ED physician Normal ECG Interpretation: Normal ECG w/ rate of... (80), Normal rate, Normal sinus rhythm X-Ray Chest Interpretation Chest Xray Interpretation: IMPRESSION: Acute disease is not seen in the upright portable chest. Dictated by: Thomas Tejada M.D. on 11/21/2016 at 20:34 Approved by: Thomas Tejada M.D. on 11/21/2016 at 20:36 CT Head Interpretation IMPRESSION: No intracranial abnormality is identified. Dictated by: Thomas Tejada M.D. on 11/21/2016 at 20:41 Approved by: Thomas Tejada M.D. on 11/21/2016 at 20:45 Re-Eval/Medical Decision Med Decision/Clinical Course Mr. Koenig is well-known to this emergency department on Hospital. He suffers from chronic daily chest pain. He had this yesterday and he had a rule out protocol. Today's having more pain just like yesterday. What is concerning is that he was out on his porch smoking a cigarette when a family member noticed that his speech was garbled and he did not seem to be making sense. The right side of his face went numb then. Symptoms lasted for 15 minutes. On my evaluation of all stroke findings have resolved. He essentially has an NIH stroke score of 0. His head CT was normal. His chest pain was treated with morphine. I recommend a stroke workup including MRI. We will admit him to the hospital to make this happen. Source of Hx: Old records Time of Eval: 21:04 Patient Status: Pain improved Re-Evaluation/Progress Note: NIH stroke score of 0. Pt states pain has been improved. Consultation : Referral / Consult Name: Hayden Escamilla MD Call Returned at: 22:28 Note: Discussed pt condition, accepts admit. Counseled Regarding: Diagnosis, Lab results, Need for admission Discharge & Departure Primary Impression: TIA (transient ischemic attack) Additional Impression: Chest pain Disposition: ADMITTED TO HOSPITAL Discharge Condition All VS Reviewed: Yes Condition: Stable Referrals: Santiago Funez MD (PCP) Cindy Attestation Portions of this note were transcribed by Yehuda Nbole. I, Dr. Recinos personally performed the history, physical exam and medical decision-making; I reviewed and confirmed the accuracy of the information in the transcribed note. Signed by : Cindy Hammond, 11/21/16 and [id number]. copies to: Santiago Funez MD, Todd P DO Nov 21, 2016 19:43 YHEUDA NOBLE Nov 21, 2016 20:38
[2016-11-21 20:02] LABS: BASOPHILS % (AUTO) 0.2 % (0-3); EOSINOPHILS % (AUTO) 2.1 % (0-5); MONOCYTES % (AUTO) 7.8 % (4-12); Mean Corpuscular Hemoglobin 30.1 pg (27.0-35.0); Mean Corpuscular Volume 88.4 fL (81-100); NEUTROPHILS % (AUTO) 62.7 % (40-74); Platelet Count 183 bil/L (150-400)
[2016-11-21 20:19] VITALS: BP 176/88; PULSE 74; RESP 18; O2SAT 97
[2016-11-21 20:29] LABS: TROPONIN T < 0.010 ug/L (0.0-0.011)
[2016-11-21 20:33] LABS: Magnesium 1.9 mg/dL (1.6-2.6)
--- NOTE | 2016-11-21 20:38 | DRSVH ---
PROCEDURE: X-RAY CHEST ONE VIEW, PORTABLE ([id number]) INDICATIONS: cp TECHNIQUE: One view of the chest was acquired. COMPARISON: [facility], CR, XR CHEST 1VW (PORTABLE), 11/20/2016, 19:44. FINDINGS: Surgical changes and devices: engine monitor leads are seen over the chest. Lungs and pleura: No pleural effusions or pneumothorax. Lungs are clear. Mediastinum: Mediastinal contours appear normal. Heart size is normal. Bones and chest wall: No suspicious bony lesions. Overlying soft tissues appear unremarkable. IMPRESSION: Acute disease is not seen in the upright portable chest. Dictated by: Thomas Tejada M.D. on 11/21/2016 at 20:34 Approved by: Thomas Tejada M.D. on 11/21/2016 at 20:36
--- NOTE | 2016-11-21 20:47 | DRSVH ---
PROCEDURE: CT BRAIN WITHOUT CONTRAST ([id number]) INDICATIONS: slurred speech TECHNIQUE: Noncontrast 4.5 mm thick angled axial sections acquired from the foramen magnum to the vertex, with c oronal reformats. COMPARISON: [facility], CT, CT BRAIN WO CON, 05/05/2016, 17:16. FINDINGS: Image quality: good. CSF spaces: Basal cisterns are patent. No extra-axial fluid collections. Ventricles are normal in size and shape. Brain: No midline shift. No intracranial masses or hemorrhage. Haider-white matter interface is norm al. Skull and face: Calvarium and visualized facial bones are intact, without suspicious lesions. Sinuses: Visualized sinuses and mastoids are clear. IMPRESSION: No intracranial abnormality is identified. Dictated by: Thomas Tejada M.D. on 11/21/2016 at 20:41 Approved by: Thomas Tejada M.D. on 11/21/2016 at 20:45
[2016-11-21] MEDS ORDERED: Alum-Mag Hydrox-Simeth 30 mL Suspension PO PRN (22:30)
[2016-11-21] MEDS ORDERED: Ondansetron 2 mg/mL 2 mL Inj IV PRN (22:30)
[2016-11-21] MEDS ORDERED: Polyethylene Glycol (PEG) 17 Gm Powder PO PRN (22:30)
[2016-11-21 22:43] VITALS: BP 114/52; PULSE 78; RESP 16; O2SAT 95
[2016-11-21] MEDS ORDERED: Glucose 40% Oral Gel 15 Gm Tube PO PRN (22:55)
[2016-11-21 23:00] VITALS: BP 107/63; PULSE 78; RESP 16; O2SAT 95
--- NOTE | 2016-11-22 00:01 | PCM.HPMED ---
Subjective Date of Service Nov 21, 2016 Primary Provider: Admitting Physician: Primary Care Physician: Santiago Funez MD Attending Physician: Chief Complaint: Speech Slurring History of Present Illness: Bernardo Koenig is a 46 year old obese male with a past medical history significant for CAD s/p stent placement x9, uncontrolled DM2 with neuropathy and chronic pain with narcotic dependence who presented to [facility] Emergency department complaining of confusion and speech slurring Patient reported he was outside with his daughter when he suddenly felt confused and then developed chest pain. Daughter reported that the patient was slurring and saying non sense words. Patient reported that chest pain being similar to his anginal pain but more severe. No radiation reported. He was in the Emergency department for the same chest pain but was discharged. He sees a configuration management advisor in [place] and is currently wearing a Holter monitoring. He has request visits for chest pain and habit of leaving against medical advice. Case discussed with Dr Recinos, CT head negative and symptoms completely resolved. NIH score was 0, not a candidate for TPA. Review of Systems: Pertinent positives as noted in HPI. All other systems were reviewed and are negative Allergies Coded Allergies: Honey Bee (Verified Allergy, Severe, anaphylaxis, 10/27/16) sumatriptan (Verified Allergy, Intermediate, Shakes and burning, 10/27/16) TAPE (Verified Allergy, Mild, blisters, 10/27/16) Home Medications From Discharge Summary, not yet confirmed Aspirin (Aspirin) 81 Mg Tablet 81 MG PO DAILY (Reported) Atorvastatin (Lipitor) 80 Mg Tablet 80 MG PO HS (Reported) Clopidogrel (Clopidogrel) 75 Mg Tablet 75 MG PO DAILY (Reported) Doxazosin Mesylate (Doxazosin Mesylate) 4 Mg Tablet 4-8 MG PO HS (Reported) Finasteride (Finasteride) 5 Mg Tablet 5 MG PO DAILY (Reported) Fluoxetine (Fluoxetine) 20 Mg Capsule 20 MG PO DAILY (Reported) Furosemide (Furosemide) 40 Mg Tablet 40 MG PO BID (Reported) Gabapentin (Gabapentin) 300 Mg Capsule 1,200 MG PO TID (Reported) Insulin Glargine (Lantus U100 Insulin Vial) 100 Unit/Ml Vial 100 UNIT SUBQ BID ( Reported) Insulin Regular, Human (HUMulin-R U100 Insulin Vial) 100 Unit/1 Ml Vial 80 UNIT SUBQ BIDAC (Reported) Isosorbide MN ER (Isosorbide MN ER) 60 Mg Tab.er.24h 60 MG PO DAILY (Reported) Lisinopril (Lisinopril) 2.5 Mg Tablet 2.5 MG PO DAILY (Reported) Metoprolol Succinate ER (Metoprolol Succinate ER) 25 Mg Tab.er.24h 12.5 MG PO DAILY (Reported) Pantoprazole DR (Pantoprazole DR) 20 Mg Tablet.dr 20 MG PO DAILY (Reported) Potassium Chloride (Potassium Chloride) 20 Meq Tab.er.prt 20 MEQ PO DAILY ( Reported) Tamsulosin ER (Tamsulosin ER) 0.4 Mg Cap.er.24h BID (Reported) As needed Albuterol HFA (Proair HFA) 8.5 Gm Hfa.aer.ad 2 PUFFS INHALATION QID PRN PRN For Shortness of Breath (Reported) Loperamide (Loperamide) 2 Mg Capsule 2-4 MG PO TID PRN PRN For Diarrhea or Loose Stool (Reported) Nitroglycerin SL (Nitroglycerin SL) 0.4 Mg Tab.subl 0.4 MG SL Q5MIN PRN PRN For Chest Pain (Reported) Oxycodone HCl/Acetaminophen (Endocet 10-325 mg Tablet) 1 Each Tablet 1-2 EACH PO Q4H PRN PRN For Pain (Reported) PMH Diabetes mellitus type 2-insulin dependent Morbid obesity Chronic pain with narcotic dependence Cervical disk disease Chronic low back pain BPH Diabetic associated neuropathy Depression Dyslipidemia GERD Ongoing tobacco abuse Hypertension Meningitis at age 11. 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 Surgical History Left rotator cuff surgery x2 Right knee surgery Left knee surgery Ganglion cyst in right hand Cardiac stents ("x9" - at [facility]) Cholecystectomy Family History Father w/diabetes and CT at 49- Mother CABG at 59 Grandmother- CT at 47 Grandfather-CVA Social History Hx Alcohol Use: No Hx Substance Use: No Hx Tobacco Use: Yes Smoking Status: Current Every Day Smoker Exam Vital Signs Vital Sign - Last Date Time Temp Pulse Resp B/P Pulse Ox O2 Delivery O2 Flow Rate FiO2 11/21/16 20:19 11/21/16 19:18 36.6 127/78 Exam General: Alert, Oriented X3, Cooperative, No acute Distress Eyes: PERRLA, Scleral Anicteric Mouth: Mouth Normal, Mucous Membranes Moist/[place] Neck: Supple, no Thyromegaly, trachea central. Chest & Lungs: Clear to auscultation & percussion, No adventitious breath sounds, no crackles, no wheeze Cardiovascular: Normal S1, Normal S2, No Murmurs/Rubs/Gallops, Regular Rate/ Rhythm, (No JVD, no peripheral edema) Pulses: Radial (present and equal), Dorsalis Pedi (present and equal) Abdomen: Soft, Non-tender, Non-distended, Normoactive bowel tones. Musculoskeletal: Unremarkable. Normal range of motion, no swollen or erythematous joints Extremities: No edema, no cyanosis, no clubbing. Skin: No rashes. Warm and dry, no erythematous areas Lymphatic: Lymph nodes Cervical and Axillary not palpable. Neurological: Mental Status: Alert and oriented with no slurred speech Cranial nerves: PERRL. Extraocular movements are intact with no nystagmus. Visual heart are full to direct confrontation. The face is symmetric, tongue midline Motor: Normal tone. Able to hold both arms and legs up off the bed and good academic advisor strength bilaterally Sensation: Intact to light touch throughout Coordination: cerebellar test intacted Reflexes: 2 throughout, toes withdraw Gait: not tested Lab and Diagnostics Labs Laboratory Tests Test 11/21/16 19:48 11/21/16 21:46 White Blood Count 8.1th/mm3 (3.8-10.1) Red Blood Count 4.65mil/mm3 (4.40-5.80) Hemoglobin 14.0g/dL (13.8-17.2) Hematocrit 41.1% (41.0-50.0) Mean Corpuscular Volume 88.4fL (81-100) Mean Corpuscular Hemoglobin 30.1pg (27.0-35.0) Mean Corpuscular Hemoglobin Concent 34.1% (32.0-37.0) Red Cell Distribution Width 13.0% (12.3-15.4) Platelet Count 183bil/L (150-400) Neutrophils (%) (Auto) 62.7% (40-74) Lymphocytes (%) (Auto) 27.1% (14-46) Monocytes (%) (Auto) 7.8% (4-12) Eosinophils (%) (Auto) 2.1% (0-5) Basophils (%) (Auto) 0.2% (0-3) Sodium Level 137mEq/L (134-144) Potassium Level 3.9mEq/L (3.5-5.2) Chloride Level 99mEq/L (97-108) Carbon Dioxide Level 22mmol/L (18-29) Blood Urea Nitrogen 14mg/dL (6-24) Creatinine 0.88mg/dL (0.76-1.27) Estimat Glomerular Filtration Rate 98mL/min (>59) Glucose Level 399mg/dL (60-99) Calcium Level 8.5mg/dL (8.5-10.1) Magnesium Level 1.9mg/dL (1.6-2.6) Total Bilirubin 0.3mg/dL (0.0-1.2) Aspartate Amino Transf (AST/SGOT) 23U/L (0-50) Alanine Aminotransferase (ALT/SGPT) 20U/L (0-44) Alkaline Phosphatase 110U/L (25-150) Troponin T < 0.010ug/L (0.0-0.011) Total Protein 7.5g/dL (6.4-8.4) Albumin 3.9g/dL (3.4-5.0) Hold Pereyra Top Tube Received (Received) Hold Urine Received (Received) Result Diagram: 11/21/16194711/21/161947 X-Rays, CTs and MRIs CT BRAIN WITHOUT CONTRAST 11/21 IMPRESSION: No intracranial abnormality is identified. Dictated by: Thomas Tejada M.D. on 11/21/2016 at 20:41 Approved by: Thomas Tejada M.D. on 11/21/2016 at 20:45 X-RAY CHEST ONE VIEW, PORTABLE 11/21 IMPRESSION: Acute disease is not seen in the upright portable chest. Dictated by: Thomas Tejada M.D. on 11/21/2016 at 20:34 Approved by: Thomas Tejada M.D. on 11/21/2016 at 20:36 Assessment & Plan Bernardo Koenig is a 46 year old obese male with a past medical history significant for CAD s/p stent placement x9, uncontrolled DM2 with neuropathy and chronic pain with narcotic dependence who presented to [facility] Emergency department complaining of confusion and speech slurring 1. Acute Transient Ischemic Attack. Present on admission Several Stroke risks identified including Diabetes, CAD, Obesity, Hyperlipidemia and previous Stroke. CT head showed no bleeding. Patient not a TPA candidate. Differential diagnosis includes Arrhythmia (patient currently on Holter monitoring) - monitor on telemetry - nothing by mouth till swallow evaluation - MRI/MRA brain and complete echo - continue Aspirin and Plavix for antiplatelet therapy - recommend interrogating Holter monitor with configuration management advisor 2. Coronary artery disease s/p 9 stents, present on admission, active. - EKG showing no ischemic changes - continue antiplatelet and Statin 3. Diabetes mellitus type 2, - checking A1c, target < 7 for secondary prevention - Insulin lispro high dose correctional - Accuchecks AC + HS 4. Nicotine Dependence - skilled nursing facility counselor, discussed cessation and encouraged - nicotine patch on request 5. Chronic pain on narcotics -resume home dosing of oral pain medications when appropriate. 6. Obesity BMI 43.2 - Acetaminophen as needed for mild pain/fever/headache - Bowel regimen as needed - Antiemetic as needed Patient is admitted under observation status with expected length of stay less than 2 midnights due to severity of presenting symptoms, risk of adverse event, and complexity of treatment plan. . VTE Prophylaxis: Sub-Q Heparin (Unfractionated) Resuscitation Status: CPR: Attempt Resuscitation Hayden Escamilla MD Nov 21, 2016 22:43 Patient is admitted under observation status with expected length of stay less than 2 midnights due to severity of presenting symptoms, risk of adverse event, and complexity of treatment plan. . Aspirin (Aspirin) 81 Mg Tablet 81 MG PO DAILY (Reported) Atorvastatin (Lipitor) 80 Mg Tablet 80 MG PO HS (Reported) Clopidogrel (Clopidogrel) 75 Mg Tablet 75 MG PO DAILY (Reported) Doxazosin Mesylate (Doxazosin Mesylate) 4 Mg Tablet 4-8 MG PO HS (Reported) Finasteride (Finasteride) 5 Mg Tablet 5 MG PO DAILY (Reported) Fluoxetine (Fluoxetine) 20 Mg Capsule 20 MG PO DAILY (Reported) Furosemide (Furosemide) 40 Mg Tablet 40 MG PO BID (Reported) Gabapentin (Gabapentin) 300 Mg Capsule 1,200 MG PO TID (Reported) Insulin Glargine (Lantus U100 Insulin Vial) 100 Unit/Ml Vial 100 UNIT SUBQ BID ( Reported) Insulin Regular, Human (HUMulin-R U100 Insulin Vial) 100 Unit/1 Ml Vial 80 UNIT SUBQ BIDAC (Reported) Isosorbide MN ER (Isosorbide MN ER) 60 Mg Tab.er.24h 60 MG PO DAILY (Reported) Lisinopril (Lisinopril) 2.5 Mg Tablet 2.5 MG PO DAILY (Reported) Metoprolol Succinate ER (Metoprolol Succinate ER) 25 Mg Tab.er.24h 12.5 MG PO DAILY (Reported) Pantoprazole DR (Pantoprazole DR) 20 Mg Tablet.dr 20 MG PO DAILY (Reported) Potassium Chloride (Potassium Chloride) 20 Meq Tab.er.prt 20 MEQ PO DAILY ( Reported) Tamsulosin ER (Tamsulosin ER) 0.4 Mg Cap.er.24h BID (Reported) As needed Albuterol HFA (Proair HFA) 8.5 Gm Hfa.aer.ad 2 PUFFS INHALATION QID PRN PRN For Shortness of Breath (Reported) Loperamide (Loperamide) 2 Mg Capsule 2-4 MG PO TID PRN PRN For Diarrhea or Loose Stool (Reported) Nitroglycerin SL (Nitroglycerin SL) 0.4 Mg Tab.subl 0.4 MG SL Q5MIN PRN PRN For Chest Pain (Reported) Oxycodone HCl/Acetaminophen (Endocet 10-325 mg Tablet) 1 Each Tablet 1-2 EACH PO Q4H PRN PRN For Pain (Reported) VTE Prophylaxis: Sub-Q Heparin (Unfractionated) Resuscitation Status: CPR: Attempt Resuscitation Hayden Escamilla MD Nov 21, 2016 22:43
[2016-11-22] MEDS ORDERED: FINA5TAB9 PO (00:10)
[2016-11-22] MEDS ORDERED: OXYC1TAB91 PO (00:10)
[2016-11-22] MEDS ORDERED: PRAS10TA5 PO (00:10)
[2016-11-22] MEDS: Heparin 5,000 Unit/mL Inj SUBQ SCH ×2 (00:43→08:22)
[2016-11-22] MEDS: oxyCODONE-Acetamin 10-325 mg Tablet PO SCH ×2 (00:44→08:16)
[2016-11-22] MEDS ORDERED: Albuterol 2.5 mg/3 mL Inhalation Solution NEB PRN (00:54)
[2016-11-22 04:25] VITALS: BP 133/73; PULSE 77; RESP 16; O2SAT 95
--- NOTE | 2016-11-22 04:43 | NUR ---
Admit Pt arrived to [facility] room 2027 from ED via bed at approx. 2300; report received from Maye Giron RN. All belongings transferred with pt, at bedside. Admission documentation and med rec completed; family asked to bring in copy of advanced directive. CVA booklet given to pt. CPOX in place for TAWANNA score of 8. Swallow screen completed by this RN, pt compliant with current diet until speech therapist evaluation in AM. Pt reports acute numbness to L side of face, acute "hotness" to L hand, and chronic neuropathy to feet; states unchanged throughout shift. MD aware. Pt reports pain at 8/10 to chest on arrival, chronic pain per pt report; 2 Percocet administered without relief upon reassessment, though pt states he is able to sleep. Pt denies dyspnea. VSS. Tele SR 70s-80s. Addendum: 11/22/16 at 0506 by AME BLANKENSHIP RN At approx. 0500, pt stated "This pain really isn't going away; can you do something about it?" 5mg morphine IVP administered. Pt states "Yeah, when I'm at home, and these kinds of episodes flare up, the Percocet I'm on doesn't do really anything then either. I mentioned it to my doctor and he said it could be something about how my body's getting used to it, I guess. I've been on the Percocet for 8 years."
[2016-11-22 05:01] VITALS: PULSE 67
[2016-11-22 08:00] VITALS: PULSE 98
[2016-11-22 08:03] VITALS: BP 140/67; PULSE 66; RESP 18; O2SAT 97
[2016-11-22] MEDS: Insulin LISPRO 300 Unit/3 mL Inj SUBQ SCH ×2 (08:27→13:09)
[2016-11-22] MEDS ORDERED: Isosorbide Mononitrate 60 mg ER24 Tablet PO SCH (08:30)
[2016-11-22] MEDS ORDERED: Insulin GLARgine 100 Unit/mL Syringe SUBQ SCH (08:30)
[2016-11-22] MEDS ORDERED: Pantoprazole 20 mg ER24 Tablet PO SCH (08:30)
[2016-11-22] MEDS ORDERED: Potassium Chloride 20 mEq SR Tablet PO SCH (08:30)
[2016-11-22] MEDS ORDERED: MeTOProlol XL 25 mg ER24 Tablet PO SCH (08:30)
--- NOTE | 2016-11-22 09:26 | NUR ---
Evaluation completed. Please go to "Notes" then click on "Assessments and Notes" (bottom left corner of screen). Then select appropriate discipline tab on top of screen.
--- NOTE | 2016-11-22 10:37 | NUR ---
Evaluation completed. Please go to "Notes" then click on "Assessments and Notes" (bottom left corner of screen). Then select appropriate discipline tab on top of screen.
--- NOTE | 2016-11-22 11:00 | NUR ---
Pain Patient complaining of chest pain 06/05. Administered pain medication. Notified
[2016-11-22 12:06] VITALS: BP 119/78; PULSE 64; RESP 18; O2SAT 98
--- NOTE | 2016-11-22 12:25 | NUR ---
Off floor Patient off floor for MRI at approximately 1220, tissue technician notified.
--- NOTE | 2016-11-22 12:59 | NUR ---
Back from MRI Patient back from MRI, waiting for lunch, tolerated MRI. Care continues.
--- NOTE | 2016-11-22 13:13 | DRSVH ---
[facility] [address] [place] [address] Echocardiogram Report Name: KAJAL TELLO DStudy Enrrique e: 11/22/2016 Height: 68 in Hospital Exam Location: [facility] Weight: 284 lb Gender: Male BSA: 2.4 m2 : 1970 Age: 46 yrs BP: 133/73 mmHg Reason For Study: STROKE Ordering Physician: HOSPITALIST [facility] Performed By: Hira Lai Referring Physician: Roel DUMONT Interpretation Summary Left ventricular wall thickness is borderline increased. The ejection fraction is estimated to be 60-65%. There are no focal wall motion abnormalities. The right ventricle is not well visualized. The right ventricle grossly appears normal in size with probable normal systolic function. Pulmonary artery pressures cannot be estimated because of the lack of a measurable TR jet velocity. Both atria are normal in size. Injection of contrast documented no obvious interatrial shunt- challenging to assess due to body habitus. There is no significant valvular heart disease. The aortic root is normal size. Otherwise, no significant changes since 09/11/2015. Procedure: A two-dimensional transthoracic echocardiogram with color flow and Doppler was performed. The study quality was technically difficult. Comparison is made with the echocardiogram of 09/11/15. A contrast injection of Definity was performed to improve assessment of LV function. A saline contrast injection was performed to assess for cardiac shunting. The patient was in normal sinus rhythm during the exam. Left Ventricle: The left ventricle is normal in size. Left ventricular wall thickness is borderline increased. The ejection fraction is estimated to be 60-65%. There are no focal wall motion abnormalities. Assessment of diastolic parameters indicates normal left ventricular diastolic function and normal filling pressures. Right Ventricle: The right ventricle is not well visualized. The right ventricle grossly appears normal in size with probable normal systolic function. Atria: Both atria are normal in size. Injection of contrast documented no obvious interatrial shunt- challenging to assess due to body habitus. Mitral Valve: The mitral valve is normal in structure and function. There is mild mitral annular calcification. There is trace mitral regurgitation. Aortic Valve: The aortic valve is not well visualized. The aortic valve is grossly normal. There is no aortic valve stenosis. No aortic regurgitation is present. Tricuspid Valve: The tricuspid valve is normal in structure and function. No tricuspid regurgitation. Pulmonary artery pressures cannot be estimated because of the lack of a measurable TR jet velocity. Pulmonic Valve: The pulmonic valve is not well visualized. There is trace pulmonic regurgitation. There is no significant valvular heart disease. Great Vessels: The aortic root is normal size. The dimensions of the ascending aorta are normal. The pulmonary artery is normal size. The IVC is of normal diameter and collapses greater than 50% with a sniff. This suggests a low right atrial pressure of 3 mm Hg. Pericardium/ Pleura There is no pericardial effusion. There is no pleural effusion. MMode/2D Measurements & Calculations LVIDd: 5.2 cm LA dimension: 4.1 cm RA long axis LVOT diam LVIDs: 3.1 cm FS: 39.9 % LA A2 area: 18.5 cm RA area Ao root diam EPSS: 0.88 cm LA A4 area: 20.7 cm IVSd: 0.98 cm LA length (vol): 6.0 cm : 17.0 cm Aortic Jxn LVPWd: 1.1 cm LA vol: 54.1 ml RA vol: 48.3 ml LA vol index RA asc Aorta : 20.4 mm2 Diam: 3.2 cm IVC diam: 1.5 cm LV ahmadi. diameter/BSA LV sys. diameter/BSA (cm/m^2): 2.2 (cm/m^2): 1.3 Doppler Measurements & Calculations Ao V2 max MV E max stan MV E/A: 1.2 PA V2 max : 151.3 cm/sec : 96.2 cm/sec Med Peak E' Stan : 68.6 cm/sec Ao max P.2 mmHg MV A max stan PA mean PG Ao mean P.2 mmHg : 79.2 cm/sec E/E' med: 13.1 LVOT Max Stan Pulm A Revs Dur PA Accel Time : 112.0 cm/sec : 0.10 sec MV A dur TATO(I,D): 3.1 cm : 0.12 sec sev ratio: 0.78 MV dec time: 0.25 secAo V2 mean LV V1 max PG PA V2 mean : 110.4 cm/sec : 48.5 cm/sec Ao V2 VTI: 32.7 cm LV V1 VTI PA pr(Accel) TATO(V,D): 3.0 cm2 : 25.4 cm : 35.7 mmHg TATO indexed to BSA Pulm A Revs Dur - MV A (cm^2/m^2): 1.3 Dur: -0.03 msec Reading Physician:CHE
--- NOTE | 2016-11-22 13:51 | DRSVH ---
PROCEDURE: MRI BRAIN WITHOUT CONTRAST ([id number]) INDICATIONS: tia TECHNIQUE: Noncontrast axial T1 spin echo, axial T2 fast spin echo, sagittal and axial FLAIR, coronal T2 fast sp in echo, axial gradient echo, axial diffusion and ADC through the brain. COMPARISON: [facility], CT, CT BRAIN WO CON, 11/21/2016, 20:06. [facility], CT, CT BRAIN WO CON, 05/05/2016, 17:16. FINDINGS: Image quality: Excellent. CSF Spaces: Basal cisterns are patent. No extra-axial fluid collections. Ventricles are normal in size and shape. Brain: No intracranial masses or hemorrhage. Haider/white matter interface is normal. Brainstem appe ars normal. Diffusion-weighted images demonstrate no acute ischemic insult. No areas of encephalomal acia. No susceptibility weighted abnormalities are identified in the brain parenchyma. A few, punctat e foci of increased T2 signal noted in the frontal subcortical white matter tracts compatible with mi nimal chronic microvascular ischemic changes. Focus of increased T2 signal with ill-defined margins i s noted in the right frontal subcortical white matter (series 5, image 17; series 4, image 17) may re present chronic microvascular white matter ischemic change, subacute infarct or less likely early klaudia plastic process. Normal intravascular flow voids are present. Skull and face: Calvarium has normal marrow signal. Orbits appear normal. Sinuses: Sinuses and mastoids are clear. IMPRESSION: 1. No acute intracranial disease process. 2. No areas of acute or chronic infarction. 2. Focus of increased T2 signal in the right frontal subcortical white matter. Lesion has nonspecific imaging characteristics may represent white matter chronic microvascular ischemic change, subacute i nfarct or less likely a neoplastic process. Recommend repeat MRI of the brain in 1-3 months. Dictated by: Cindy Gross MD, PhD on 11/22/2016 at 13:11 Approved by: Cindy Gross MD, PhD on 11/22/2016 at 13:16
[2016-11-22] MEDS ORDERED: Acetaminophen IV 1,000 MG in IV Premix 1 EACH IV ONE (14:05)
--- NOTE | 2016-11-22 14:11 | PCM.PNMED ---
Subjective Date of Service Nov 22, 2016 Exam Vital Signs Vital Sign - Last Date Time Temp Pulse Resp B/P Pulse Ox O2 Delivery O2 Flow Rate FiO2 11/22/16 12:06 36.9 64 18 119/78 98 Room Air Intake and Output 11/21/16 11/21/16 11/22/16 Cumulative From/Thru 15:00 23:00 07:00 11/21/16 19:18 - 11/22/16 06:05 Intake Total 0 ml 0 ml Output Total 300 ml 300 ml Balance -300 ml -300 ml Intake Oral 0 ml 0 ml Output Urine Total 300 ml 300 ml # Voids 1 1 Exam Gen.- A+ O 3 no apparent distress. Eyes- open conjunctiva clear, pupils equal nonicteric Mouth- oral mucosa moist, no exudate ENT- ears normal, nose normal Neck- supple/trach midline CVS- RRR no murmur or gallop Lungs CTA GI- NABS/NT soft Musc- moving 4 no obvious deformity Neuro- cranial nerves II through XII intact to gross examination, nonfocal Skin- warm and dry, no rashes/lesions/wounds noted Psych- pleasant and appropriate, Lab and Diagnostics Result Diagram: 11/21/16194711/21/161947 X-Rays, CTs and MRIs CT BRAIN WITHOUT CONTRAST 11/21 IMPRESSION: No intracranial abnormality is identified. Dictated by: Thomas Tejada M.D. on 11/21/2016 at 20:41 Approved by: Thomas Tejada M.D. on 11/21/2016 at 20:45 X-RAY CHEST ONE VIEW, PORTABLE 11/21 IMPRESSION: Acute disease is not seen in the upright portable chest. Dictated by: Thomas Tejada M.D. on 11/21/2016 at 20:34 Approved by: Thomas Tejada M.D. on 11/21/2016 at 20:36 12-lead ECG . Sinus rhythm 80, qtc 466 * Possible left atrial enlargement . Low voltage, precordial leads * Minimal ST depression, inferolateral leads . When compared with ECG of 20-Nov-2016 19:43:51, . No significant change Personally/concurrently reviewed Cardiac Echo Impressions Interpretation Summary Left ventricular wall thickness is borderline increased. The ejection fraction is estimated to be 60-65%. There are no focal wall motion abnormalities. The right ventricle is not well visualized. The right ventricle grossly appears normal in size with probable normal systolic function. Pulmonary artery pressures cannot be estimated because of the lack of a measurable TR jet velocity. Both atria are normal in size. Injection of contrast documented no obvious interatrial shunt- challenging to assess due to body habitus. There is no significant valvular heart disease. The aortic root is normal size. Otherwise, no significant changes since 09/11/2015. Assessment & Plan Bernardo Koenig is a 46 year old obese male with a past medical history significant for CAD s/p stent placement x9, uncontrolled DM2 with neuropathy and chronic pain with narcotic dependence who presented to [facility] Emergency department complaining of confusion and speech slurring 1. Acute Transient Ischemic Attack. Present on admission Several Stroke risks identified including Diabetes, CAD, Obesity, Hyperlipidemia and previous Stroke. CT head showed no bleeding. Patient not a TPA candidate. Differential diagnosis includes Arrhythmia (patient currently on Holter monitoring) - monitor on telemetry - nothing by mouth till swallow evaluation - MRI/MRA brain and complete echo - continue Aspirin and Plavix for antiplatelet therapy - recommend interrogating Holter monitor with auto research engineer 2. Coronary artery disease s/p 9 stents, present on admission, active. - EKG showing no ischemic changes - continue antiplatelet and Statin 3. Diabetes mellitus type 2, - checking A1c, target < 7 for secondary prevention - Insulin lispro high dose correctional - Accuchecks AC + HS 4. Nicotine Dependence - clinical mental health counselor, discussed cessation and encouraged - nicotine patch on request 5. Chronic pain on narcotics -resume home dosing of oral pain medications when appropriate. 6. Obesity BMI 43.2 - Acetaminophen as needed for mild pain/fever/headache - Bowel regimen as needed - Antiemetic as needed Patient is admitted under observation status with expected length of stay less than 2 midnights due to severity of presenting symptoms, risk of adverse event, and complexity of treatment plan. . VTE Prophylaxis: Sub-Q Heparin (Unfractionated) Resuscitation Status: CPR: Attempt Resuscitation Eris Willett MD Nov 22, 2016 14:11
--- NOTE | 2016-11-22 14:14 | NUR ---
AMA Patient angry, yelling, swearing, throwing things, ripped out IV, refusing care. Notified rn discharge and MD. Patient left AMA. Paper signed and in chart. MD also notified of AMA status. Patient escorted by OFFSET PRINTING OPERATOR in wheelchair to front door with family. Addendum: 11/22/16 at 1419 by NEAL LEI RN Patient left at approximately 1415.
--- NOTE | 2016-11-22 18:06 | PCM.DC.MED ---
Discharge Summary Date of Service Nov 22, 2016 Dates of Hospitalization Date of Hospital Admission Nov 21, 2016 at 22:58 Date of Discharge: Nov 22, 2016 Providers: Admitting Physician: Hayden Escamilla MD Primary Care Physician: Santiago Funez MD Attending Physician: Hayden Escamilla MD Diagnosis at Time of Discharge Diagnosis at Time of Discharge Nonspecific chest pain, narcotic seeking behavior Consultations None Procedures XRay, CTs & MRIs CT BRAIN WITHOUT CONTRAST 11/21 IMPRESSION: No intracranial abnormality is identified. Dictated by: Thomas Tejada M.D. on 11/21/2016 at 20:41 Approved by: Thomas Tejada M.D. on 11/21/2016 at 20:45 X-RAY CHEST ONE VIEW, PORTABLE 11/21 IMPRESSION: Acute disease is not seen in the upright portable chest. Dictated by: Thomas Tejada M.D. on 11/21/2016 at 20:34 Approved by: Thomas Tejada M.D. on 11/21/2016 at 20:36 ECG 12 Lead . Sinus rhythm 80, qtc 466 * Possible left atrial enlargement . Low voltage, precordial leads * Minimal ST depression, inferolateral leads . When compared with ECG of 20-Nov-2016 19:43:51, . No significant change Personally/concurrently reviewed Cardiac Echo Impression Interpretation Summary Left ventricular wall thickness is borderline increased. The ejection fraction is estimated to be 60-65%. There are no focal wall motion abnormalities. The right ventricle is not well visualized. The right ventricle grossly appears normal in size with probable normal systolic function. Pulmonary artery pressures cannot be estimated because of the lack of a measurable TR jet velocity. Both atria are normal in size. Injection of contrast documented no obvious interatrial shunt- challenging to assess due to body habitus. There is no significant valvular heart disease. The aortic root is normal size. Otherwise, no significant changes since 09/11/2015. Brief History Patient reported he was outside with his daughter when he suddenly felt confused and then developed chest pain. Daughter reported that the patient was slurring and saying non sense words. Patient reported that chest pain being similar to his anginal pain but more severe. No radiation reported. He was in the Emergency department for the same chest pain but was discharged. . Hospital Course Bernardo Koenig is a 46 year old obese male with a past medical history significant for CAD s/p stent placement x9, uncontrolled DM2 with neuropathy and chronic pain with narcotic dependence who presented to [facility] Emergency department complaining of confusion and speech slurring 1. Acute Transient Ischemic Attack. Present on admission Several Stroke risks identified including Diabetes, CAD, Obesity, Hyperlipidemia and previous Stroke. CT head showed no bleeding. Patient not a TPA candidate. Differential diagnosis includes Arrhythmia (patient currently on Holter monitoring) Holter monitor had 3 alarms on it yesterday 11/21 reportedly from the company and all of the lower sinus rhythm - monitor on telemetry no arrhythmias reported - nothing by mouth till swallow evaluation reviewed speech cleared the patient no problems - MRI/MRA brain and complete echo both normal - continue Aspirin and Plavix for antiplatelet therapy - Holter monitor report was obtained and is as noted above no arrhythmias 2. Coronary artery disease s/p 9 stents, present on admission, active. - EKG showing no ischemic changes, cardiac enzymes normal, echo normal - continue antiplatelet and Statin 3. Diabetes mellitus type 2, not reviewed - checking A1c, target < 7 for secondary prevention - Insulin lispro high dose correctional - Accuchecks AC + HS 4. Nicotine Dependence not reviewed - beauty counselor, discussed cessation and encouraged - nicotine patch on request 5. Chronic pain on narcotics -patient was requesting quite specifically IV narcotics throughout his stay and likely became upset when they were not provided which is why he left. -resume home dosing of oral pain medications when appropriate. 6. Obesity BMI 43.2 Patient left AGAINST MEDICAL ADVICE. It was reviewing all of his records and getting ready to order a repeat EKG and labs and see him when he ripped out his IV pulled off his telemetry and walked out of the hospital. Reportedly this is not unusual behavior for this patient. . Exam Vital Signs (Last) Date Time Temp Pulse Resp B/P Pulse Ox O2 Delivery O2 Flow Rate FiO2 11/22/16 12:06 36.9 64 18 119/78 98 Room Air Test 11/21/16 19:48 11/21/16 21:46 White Blood Count 8.1th/mm3 (3.8-10.1) Red Blood Count 4.65mil/mm3 (4.40-5.80) Hemoglobin 14.0g/dL (13.8-17.2) Hematocrit 41.1% (41.0-50.0) Mean Corpuscular Volume 88.4fL (81-100) Mean Corpuscular Hemoglobin 30.1pg (27.0-35.0) Mean Corpuscular Hemoglobin Concent 34.1% (32.0-37.0) Red Cell Distribution Width 13.0% (12.3-15.4) Platelet Count 183bil/L (150-400) Neutrophils (%) (Auto) 62.7% (40-74) Lymphocytes (%) (Auto) 27.1% (14-46) Monocytes (%) (Auto) 7.8% (4-12) Eosinophils (%) (Auto) 2.1% (0-5) Basophils (%) (Auto) 0.2% (0-3) Sodium Level 137mEq/L (134-144) Potassium Level 3.9mEq/L (3.5-5.2) Chloride Level 99mEq/L (97-108) Carbon Dioxide Level 22mmol/L (18-29) Blood Urea Nitrogen 14mg/dL (6-24) Creatinine 0.88mg/dL (0.76-1.27) Estimat Glomerular Filtration Rate 98mL/min (>59) Glucose Level 399mg/dL (60-99) Calcium Level 8.5mg/dL (8.5-10.1) Magnesium Level 1.9mg/dL (1.6-2.6) Total Bilirubin 0.3mg/dL (0.0-1.2) Aspartate Amino Transf (AST/SGOT) 23U/L (0-50) Alanine Aminotransferase (ALT/SGPT) 20U/L (0-44) Alkaline Phosphatase 110U/L (25-150) Troponin T < 0.010ug/L (0.0-0.011) Total Protein 7.5g/dL (6.4-8.4) Albumin 3.9g/dL (3.4-5.0) Hold Pereyra Top Tube Received (Received) Hold Urine Received (Received) Discharge Medications Discharge Medications Aspirin (Aspirin) 81 Mg Tablet 81 MG PO DAILY (Reported) Atorvastatin (Lipitor) 80 Mg Tablet 80 MG PO HS (Reported) Clopidogrel (Clopidogrel) 75 Mg Tablet 75 MG PO DAILY (Reported) Doxazosin Mesylate (Doxazosin Mesylate) 4 Mg Tablet 4-8 MG PO HS (Reported) Finasteride (Finasteride) 5 Mg Tablet 10 MG PO DAILY (Reported) Furosemide (Furosemide) 40 Mg Tablet 40 MG PO BID (Reported) Gabapentin (Gabapentin) 300 Mg Capsule 1,200 MG PO TID (Reported) Insulin Glargine (Lantus U100 Insulin Vial) 100 Unit/Ml Vial 100 UNIT SUBQ BID ( Reported) Insulin Regular, Human (HUMulin-R U100 Insulin Vial) 100 Unit/1 Ml Vial 80 UNIT SUBQ BIDAC (Reported) Isosorbide MN ER (Isosorbide MN ER) 60 Mg Tab.er.24h 60 MG PO DAILY (Reported) Lisinopril (Lisinopril) 2.5 Mg Tablet 2.5 MG PO DAILY (Reported) Metoprolol Succinate ER (Metoprolol Succinate ER) 25 Mg Tab.er.24h 12.5 MG PO DAILY (Reported) Oxycodone HCl/Acetaminophen (Endocet 10-325 mg Tablet) 1 Each Tablet 2 EACH PO BID (Reported) Pantoprazole DR (Pantoprazole DR) 20 Mg Tablet.dr 20 MG PO DAILY (Reported) Potassium Chloride (Potassium Chloride) 20 Meq Tab.er.prt 20 MEQ PO DAILY ( Reported) Prasugrel HCl (Effient) 10 Mg Tablet 10 MG PO DAILY (Reported) Tamsulosin ER (Tamsulosin ER) 0.4 Mg Cap.er.24h BID (Reported) As needed Albuterol HFA (Proair HFA) 8.5 Gm Hfa.aer.ad 2 PUFFS INHALATION QID PRN PRN For Shortness of Breath (Reported) Loperamide (Loperamide) 2 Mg Capsule 2-4 MG PO TID PRN PRN For Diarrhea or Loose Stool (Reported) Nitroglycerin SL (Nitroglycerin SL) 0.4 Mg Tab.subl 0.4 MG SL Q5MIN PRN PRN For Chest Pain (Reported) Followup Plan Disposition: We do not know or have a follow-up plan as he left AGAINST MEDICAL ADVICE before I could see him. Time spent More than 30 minutes but I never actually saw the patient Attending Statement Patient was admitted in the early hours, diagnostic evaluation/testing performed was unrevealing. Patient was demanding IV pain medications for his 8- 10 out of 10 pain. His behavior escalated when he did not receive these and he pulled out his IV and removed his telemetry and signed out AGAINST MEDICAL ADVICE before he was seen by me. copies to: Santiago Funez MD,Eris Calixto MD Nov 22, 2016 18:06
== END 2016-11-22 14:15 | disposition left against medical advice (07) ==
LOC: SED 19:12 → PCC 22:58 → INTOOBSV 22:58
PROVIDERS: ADMIT Hospitalist; ATTEND Hospitalist
DX: G45.9 Transient cerebral ischemic attack, unspecified (principal); R07.9 Chest pain, unspecified; I25.10 Atherosclerotic heart disease of native coronary artery without angina pectoris; I10 Essential (primary) hypertension; F17.200 Nicotine dependence, unspecified, uncomplicated; Z95.5 Presence of coronary angioplasty implant and graft; E11.40 Type 2 diabetes mellitus with diabetic neuropathy, unspecified; Z79.4 Long term (current) use of insulin; Z86.718 Personal history of other venous thrombosis and embolism; Z79.01 Long term (current) use of anticoagulants; Z79.02 Long term (current) use of antithrombotics/antiplatelets; I25.2 Old myocardial infarction; N40.0 Benign prostatic hyperplasia without lower urinary tract symptoms; E78.5 Hyperlipidemia, unspecified; E66.01 Morbid (severe) obesity due to excess calories; Z68.41 Body mass index [BMI] 40.0-44.9, adult; F11.20 Opioid dependence, uncomplicated; G89.29 Other chronic pain; Z76.5 Malingerer [conscious simulation]
CPT/HCPCS: 36415; 70450; 70551; 71010; 80053; 82948; 83036; 83735; 84484; 85025; 92610; 93005; 96372; 96374; 96376; 97166; 99285; C8929; G0378; G8987; G8988; G8989; J1644; J1815; J2270; Q9957

== ENCOUNTER 2016-12-19 14:14 | Emergency (ER) | payer OTHER ==
[~2016-12-19] VITALS: Ht 172.7 cm; Wt 129.6 kg
[~2016-12-19 14:14] MED LIST changes: -FLUO20CA25 PO; +PRAS10TA5 PO
[2016-12-19 14:22] VITALS: BP 106/67; PULSE 84; RESP 16; O2SAT 97
[2016-12-19 14:59] LABS: BASOPHILS % (AUTO) 0.2 % (0-3); EOSINOPHILS % (AUTO) 0.6 % (0-5); MONOCYTES % (AUTO) 6.4 % (4-12); NEUTROPHILS % (AUTO) 71.6 % (40-74); Platelet Count 207 bil/L (150-400)
--- NOTE | 2016-12-19 15:01 | ED.REPORT ---
HPI-Chest Pain 40 and Over Date of Service Dec 19, 2016 ED Provider: Quincy Meyer MD This is a 46 year old male with history of angina, CAD, DM, CHF, stroke, MT, hypertension, frequent ED visits, s/p cardiac stents presenting to the emergency department complaining of chest pain that worsened today. Reports substernal pain with exertion that radiates to back. Pain described as "pulsating throbbing." Pt states pain was not relieved by nitroglycerin or oxycodone, uncontrollable pain prompted ED visit today. Associated symptoms include dizziness with exertion. Pt has frequent ED visits with pt leaving AMA. Systems Support Specialist Dr. Dia in [place]. Nursing Notes Stated Complaint: DIZZY/HEART Chief Complaint: Chest Pain Nursing Notes Reviewed: Yes Allergies: Coded Allergies: Honey Bee (Verified Allergy, Severe, anaphylaxis, 10/27/16) sumatriptan (Verified Allergy, Intermediate, Shakes and burning, 10/27/16) TAPE (Verified Allergy, Mild, blisters, 10/27/16) Scheduled Aspirin (Aspirin) 81 Mg Tablet 81 MG PO DAILY Atorvastatin (Lipitor) 80 Mg Tablet 80 MG PO HS Clopidogrel (Clopidogrel) 75 Mg Tablet 75 MG PO DAILY Doxazosin Mesylate (Doxazosin Mesylate) 4 Mg Tablet 4-8 MG PO HS Finasteride (Finasteride) 5 Mg Tablet 10 MG PO DAILY Furosemide (Furosemide) 40 Mg Tablet 40 MG PO BID Gabapentin (Gabapentin) 300 Mg Capsule 1,200 MG PO TID Insulin Glargine (Lantus U100 Insulin Vial) 100 Unit/Ml Vial 100 UNIT SUBQ BID Insulin Regular, Human (HUMulin-R U100 Insulin Vial) 100 Unit/1 Ml Vial 80 UNIT SUBQ BIDAC Isosorbide MN ER (Isosorbide MN ER) 60 Mg Tab.er.24h 60 MG PO DAILY Lisinopril (Lisinopril) 2.5 Mg Tablet 2.5 MG PO DAILY Metoprolol Succinate ER (Metoprolol Succinate ER) 25 Mg Tab.er.24h 12.5 MG PO DAILY Oxycodone HCl/Acetaminophen (Endocet 10-325 mg Tablet) 1 Each Tablet 2 EACH PO BID Pantoprazole DR (Pantoprazole DR) 20 Mg Tablet.dr 20 MG PO DAILY Potassium Chloride (Potassium Chloride) 20 Meq Tab.er.prt 20 MEQ PO DAILY Prasugrel HCl (Effient) 10 Mg Tablet 10 MG PO DAILY Tamsulosin ER (Tamsulosin ER) 0.4 Mg Cap.er.24h BID Scheduled PRN Albuterol HFA (Proair HFA) 8.5 Gm Hfa.aer.ad 2 PUFFS INHALATION QID PRN PRN For Shortness of Breath Loperamide (Loperamide) 2 Mg Capsule 2-4 MG PO TID PRN PRN For Diarrhea or Loose Stool Nitroglycerin SL (Nitroglycerin SL) 0.4 Mg Tab.subl 0.4 MG SL Q5MIN PRN PRN For Chest Pain General Time Seen by MD: 14:57 Chief Complaint Chest pain Hx Obtained From: Patient Arrived By: Walk-in Sudden in Onset?: Yes Onset Occurred: Yesterday Symptom Duration: Since onset Severity: Current: Mild Pertinent Negative: Pt denies other symptoms Recent Healthcare: No recent doctor visit, No recent hospitalization Similar Sx Previous: No Past Medical History Past Medical History Notes: Patient states [facility], 08/04/16, and 08/26/16 Past Medical History CAD - multiple stents, cardiac caths 02/14, 03/12, 04/11, ad 04/17 w/stent placed to proximal LAD overlapping prior stent and "plavix non-responder" Syncope Type two diabetes with neuropathy Chronic back and leg pain Lower extremity DVT "years ago" per patient, details unclear History of migraines BPH Kidney Stones On Warfarin and Plavix HTN MT 2014 Reports: COPD, Congestive heart failure, Stroke Reports: Heroin use Past Surgical History Shoulder surgery (joint replacement) Left knee surgery Ganglion cyst in right hand Cardiac stents ("x9" - at [facility]) Reports: Cholecystectomy Family History Both of the patient's parents are still alive Smoking History Current Every Day Smoker Social History Alcohol Use: Denies alcohol use Drug Use: Denies drug use Other Social History: Good social support, , Local resident 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 Physical Exam Initial Vital Signs Vital Signs (First) Date Time Temp Pulse Resp B/P Pulse Ox O2 Delivery O2 Flow Rate FiO2 12/19/16 14:22 36.3 84 16 106/67 97 Room Air Initial VS: Reviewed Head / Eyes: Atraumatic, Normocephalic, PERRL ENT: Mucous membranes moist, Conjunctiva normal, No scleral icterus Neck: Supple, Non-tender, Full range of motion Extremities: Vascular intact, Neuro intact, No swelling, No tenderness Skin: Warm, Dry, No cyanosis Neurologic: Alert, Oriented, Nonfocal Psychiatric: Mood/affect normal, Behavior normal, Normal thought content General/Constitutional: Awake, Alert Respiratory / Chest: Breath sounds NL, Breath sounds = bilat, No respiratory distress, No rales, No rhonchi, No wheezing, No stridor, No chest tenderness Cardiovascular: Heart rate NL, Regular rhythm, Heart sounds NL, No murmurs, Peripheral circulation NL, Pulses = bilaterally, No gross BP differential Abdomen: Soft, Non-tender, McBurney's non-tender, No guarding, No rebound, BS normoactive, No distention, No hernia, No palpable mass Interpretation & Diagnostics CBC unremarkable Chemistry notable for Sodium 131, otherwise unremarkable Glucose 394 Troponin negative Lab Results Interpretation Result Diagram: 12/19/16 1445 12/19/16 1445 Test 12/19/16 14:45 12/19/16 16:50 12/19/16 16:59 White Blood Count 9.4th/mm3 (3.8-10.1) Red Blood Count 4.74mil/mm3 (4.40-5.80) Hemoglobin 14.2g/dL (13.8-17.2) Hematocrit 41.7% (41.0-50.0) Mean Corpuscular Volume 88.0fL (81-100) Mean Corpuscular Hemoglobin 30.0pg (27.0-35.0) Mean Corpuscular Hemoglobin Concent 34.1% (32.0-37.0) Red Cell Distribution Width 12.8% (12.3-15.4) Platelet Count 207bil/L (150-400) Neutrophils (%) (Auto) 71.6% (40-74) Lymphocytes (%) (Auto) 21.1% (14-46) Monocytes (%) (Auto) 6.4% (4-12) Eosinophils (%) (Auto) 0.6% (0-5) Basophils (%) (Auto) 0.2% (0-3) Sodium Level 131mEq/L (134-144) Potassium Level 4.3mEq/L (3.5-5.2) Chloride Level 94mEq/L (97-108) Carbon Dioxide Level 21mmol/L (18-29) Blood Urea Nitrogen 15mg/dL (6-24) Creatinine 0.99mg/dL (0.76-1.27) Estimat Glomerular Filtration Rate 86mL/min (>59) Glucose Level 394mg/dL (60-99) Calcium Level 8.8mg/dL (8.5-10.1) Magnesium Level 1.9mg/dL (1.6-2.6) Total Bilirubin 0.5mg/dL (0.0-1.2) Aspartate Amino Transf (AST/SGOT) 15U/L (0-50) Alanine Aminotransferase (ALT/SGPT) 13U/L (0-44) Alkaline Phosphatase 105U/L (25-150) Total Protein 7.3g/dL (6.4-8.4) Albumin 3.8g/dL (3.4-5.0) Hold Urine Received (Received) Troponin T < 0.010ug/L (0.0-0.011) ECG Interpretation ECG Interpretation: SR at a rate of 73 Normal axis, intervals No ST segment changes No Acute T-wave abnormalities when compared to prior 11/21/2016, no significant changes present Time: 15:54 Interpreted by: ED physician X-Ray Chest Interpretation Chest Xray Interpretation: IMPRESSION: No acute cardiac pulmonary disease. Dictated by: Nicholas Zamora M.D. on 12/19/2016 at 16:10 Approved by: Nicholas Zamora M.D. on 12/19/2016 at 16:10 Re-Eval/Medical Decision Med Decision/Clinical Course The patient is a 46-year-old male with extensive cardiac history including multiple stents as well as multiple emergency department visits related to chest pain for which he has previously thought to be seeking narcotic pain medications who presents to the emergency department complaining of intermittent chest discomfort that is exertional in nature. Upon arrival to the emergency department the patient is calm, comfortable and in no apparent distress. EKG was obtained as documented above and did not demonstrate any evidence of acute ischemia or STEMI. I obtained a CBC and CMP which were unremarkable and troponin which was negative. He had already taken 324 mg of aspirin prior to arrival and his pain was treated with sublingual nitroglycerin and Tylenol. I called his flower grower's office and had a long conversation with the physician monitoring and evaluation advisor regarding this patient. Per that discussion the patient has recently in the last year had a stress test which was negative as well as coronary angiography which demonstrated "no evidence of narrowing and widely patent stents". Per my discussion with the patient's cardiology office his pain is thought to be related to "musculoskeletal issues" and "anxiety". The emergency department the patient did repeatedly request narcotic pain medications which I declined to administer. I am reassured at this time given his negative cardiac workup. That being said he does have significant underlying risk factors. When we explained to the patient that we would not administer IV narcotic pain medications he stated that he wanted to be discharged. The patient demonstrated insight into his condition and chose to leave the emergency department. He was advised to follow-up should he develop any recurrent chest pain or new/worsening symptoms. He will follow up closely with his flower grower on an outpatient basis. Follow-up and return precautions were provided in detail and he was discharged in stable condition at his discretion. Consultation : Call Returned at: 16:28 Jewelry Engraver: Agrees with brwon, Agrees with plan Note: Dr. Woodruff on-call for patient's cardiolgoist, June, had negative cath that showed stents were wide open. Stress test in September, that was unremarkable. Notes indicate that chest pain is related to anxiety and musculoskeletal etiologies. Agrees with plan for repeat troponin and plan for follow up with his flower grower as an oupatient. Counseled Regarding: Diagnosis, Lab results, Need for follow-up, When/why to return to ED Discharge & Departure Primary Impression: Chest pain Chest pain type: unspecified Qualified Code: R07.9 - Chest pain, unspecified Additional Impressions: History of coronary artery disease History of heart artery stent Opiate dependence Substance use status: with unspecified opioid-induced disorder Qualified Code : F11.29 - Opioid dependence with unspecified opioid-induced disorder Disposition: Home Discharge Condition All VS Reviewed: Yes Condition: Stable Additional Instructions: Thank you for seeking care at emergency room. It is difficult for us to make definitive diagnoses in the ED but we believe that you are experiencing chest pain. Our primary goal today in the ED was to evaluate you for any life-threatening conditions. Your evaluation was reassuring. You should follow-up with your primary doctor in the next week. You should return to the ED immediately if you develop fevers, vomiting, cough, shortness of breath, chest pain, lightheadedness, weakness or any other concerning signs or symptoms. Thank you for letting us partake in your care today. Referrals: Santiago Funez MD (PCP) Scribe Attestation Portions of this note were transcribed by Juanito Webb. I, Dr. Meyer personally performed the history, physical exam and medical decision-making; I reviewed and confirmed the accuracy of the information in the transcribed note. Signed by: russ Ma. 12/19/2016, 11:30. Quincy Meyer MD Dec 19, 2016 15:01 JUANITO WEBB Dec 19, 2016 15:25
[2016-12-19 15:24] LABS: TROPONIN T < 0.010 ug/L (0.0-0.011)
[2016-12-19 15:33] LABS: Magnesium 1.9 mg/dL (1.6-2.6)
--- NOTE | 2016-12-19 16:11 | DRSVH ---
PROCEDURE: X-RAY CHEST, TWO VIEWS ([id number]) INDICATIONS: chest pain TECHNIQUE: 2 views of the chest were acquired. COMPARISON: [facility], CR, XR CHEST 1VW (PORTABLE), 11/21/2016, 19:49. [facility], CR, XR CHEST 2VW, 06/04/2016, 16:48. FINDINGS: Surgical changes and devices: None. Lungs and pleura: No pleural effusions or pneumothorax. Lungs are clear. Mediastinum: Mediastinal contours are normal. Heart size is normal. Bones and chest wall: No suspicious bony abnormalities. Soft tissues appear unremarkable. IMPRESSION: No acute cardiac pulmonary disease. Dictated by: Nicholas Zamora M.D. on 12/19/2016 at 16:10 Approved by: Nicholas Zamora M.D. on 12/19/2016 at 16:10
[2016-12-19 17:03] VITALS: BP 134/63; PULSE 75; RESP 17; O2SAT 95
[2016-12-19 17:22] VITALS: BP 113/60; PULSE 75; RESP 17; O2SAT 94
== END 2016-12-19 17:52 | disposition home or self-care (01) ==
LOC: SED 14:14
DX: R07.9 Chest pain, unspecified (principal); F11.29 Opioid dependence with unspecified opioid-induced disorder; R42 Dizziness and giddiness; I25.10 Atherosclerotic heart disease of native coronary artery without angina pectoris; E11.40 Type 2 diabetes mellitus with diabetic neuropathy, unspecified; I50.9 Heart failure, unspecified; I25.2 Old myocardial infarction; I10 Essential (primary) hypertension; J44.9 Chronic obstructive pulmonary disease, unspecified; F17.200 Nicotine dependence, unspecified, uncomplicated; Z95.5 Presence of coronary angioplasty implant and graft; Z86.73 Personal history of transient ischemic attack (TIA), and cerebral infarction without residual deficits; Z79.01 Long term (current) use of anticoagulants; Z88.8 Allergy status to other drugs, medicaments and biological substances; Z79.82 Long term (current) use of aspirin; Z79.4 Long term (current) use of insulin

== ENCOUNTER 2017-01-14 16:16 | Emergency (ER) | payer OTHER ==
[~2017-01-14] VITALS: Ht 172.7 cm; Wt 129.6 kg
[2017-01-14 16:23] VITALS: BP 128/84; PULSE 91; RESP 12; O2SAT 96
[2017-01-14 17:07] VITALS: BP 123/59; PULSE 75; RESP 20; O2SAT 95
--- NOTE | 2017-01-14 17:07 | DRSVH ---
PROCEDURE: X-RAY CHEST ONE VIEW, PORTABLE ([id number]) INDICATIONS: cp TECHNIQUE: One view of the chest was acquired. COMPARISON: [facility], CR, XR CHEST 2VW, 12/19/2016, 15:38. FINDINGS: Surgical changes and devices: None. Lungs and pleura: No pleural effusions or pneumothorax. Lungs are clear. Mediastinum: Mediastinal contours appear normal. Heart size is normal. Bones and chest wall: No suspicious bony lesions. Overlying soft tissues appear unremarkable. IMPRESSION: No acute cardiopulmonary disease. Dictated by: Julio Toro [facility] Interpreted: Mauricio Cruz MD on 01/14/2017 at 17:06 Transcribed by: KT on 01/14/2017 at 17:06 Approved by: Mauricio Cruz M.D. on 01/16/2017 at 10:08
[2017-01-14 17:35] LABS: BASOPHILS % (AUTO) 0.1 % (0-3); EOSINOPHILS % (AUTO) 0.2 % (0-5); MONOCYTES % (AUTO) 3.1 % (4-12); Mean Corpuscular Hemoglobin 29.4 pg (27.0-35.0); NEUTROPHILS % (AUTO) 86.3 % (40-74); Platelet Count 190 bil/L (150-400)
[2017-01-14 18:07] LABS: TROPONIN T < 0.010 ug/L (0.0-0.011)
[2017-01-14] MEDS ORDERED: Ondansetron 2 mg/mL 2 mL Inj ONE (18:07)
[2017-01-14 18:13] VITALS: BP 117/49; PULSE 70; RESP 16; O2SAT 96
--- NOTE | 2017-01-14 19:04 | ED.REPORT ---
HPI-Chest Pain 40 and Over Date of Service Jan 14, 2017 ED Provider: Quincy Meyer MD A 46 year old male with history of CAD, type II diabetes mellitus, CHF, stroke, [place], hypertension, frequent ED visits due to angina and multiple cardiac stents presents to the ED complaining of chest pain that began one week ago.Patient was most recently seen in the [place] ED with a negative troponin and normal EKG. These records have been requested bu are not available at this time. Patient was seen in the [facility] ED on 12/[address] Meyer. His workup revealed unremarkable CBC, CMP notable for a glucose of 394, negative troponin, reassuring EKG with no ischemic changes. Patient condition was discussed extensively with the patient's hospice massage therapist who believed the patient's symptoms were most likely due to musculoskeletal etiologies and anxiety. His workup did not indicate need for admission. Today, the patient presents after a near syncopal episode associated with chest pain, dizziness and nausea. Patient describes his pain as a "squeezing, dull throb" that radiates to his arm and back. The episode of dizziness lasted approx. 5 minutes. Family reports that the patient has been dizzy and vomiting for the past week. Nursing Notes Stated Complaint: CHEST PAIN/SOB Chief Complaint: Chest Pain Nursing Notes Reviewed: Yes Allergies: Coded Allergies: Honey Bee (Verified Allergy, Severe, anaphylaxis, 10/27/16) Penicillins (Verified Allergy, Intermediate, itching, and hives, 01/14/17) sumatriptan (Verified Allergy, Intermediate, Shakes and burning, 10/27/16) TAPE (Verified Allergy, Mild, blisters, 10/27/16) hydromorphone (Verified Adverse Reaction, Intermediate, very drowsy and nauseated, 01/14/17) Scheduled Aspirin (Aspirin) 81 Mg Tablet 81 MG PO DAILY Atorvastatin (Lipitor) 80 Mg Tablet 80 MG PO HS Clopidogrel (Clopidogrel) 75 Mg Tablet 75 MG PO DAILY Doxazosin Mesylate (Doxazosin Mesylate) 4 Mg Tablet 4-8 MG PO HS Finasteride (Finasteride) 5 Mg Tablet 10 MG PO DAILY Furosemide (Furosemide) 40 Mg Tablet 40 MG PO BID Gabapentin (Gabapentin) 300 Mg Capsule 1,200 MG PO TID Insulin Glargine (Lantus U100 Insulin Vial) 100 Unit/Ml Vial 100 UNIT SUBQ BID Insulin Regular, Human (HUMulin-R U100 Insulin Vial) 100 Unit/1 Ml Vial 80 UNIT SUBQ BIDAC Isosorbide MN ER (Isosorbide MN ER) 60 Mg Tab.er.24h 60 MG PO DAILY Lisinopril (Lisinopril) 2.5 Mg Tablet 2.5 MG PO DAILY Metoprolol Succinate ER (Metoprolol Succinate ER) 25 Mg Tab.er.24h 12.5 MG PO DAILY Oxycodone HCl/Acetaminophen (Endocet 10-325 mg Tablet) 1 Each Tablet 2 EACH PO BID Pantoprazole DR (Pantoprazole DR) 20 Mg Tablet.dr 20 MG PO DAILY Potassium Chloride (Potassium Chloride) 20 Meq Tab.er.prt 20 MEQ PO DAILY Prasugrel HCl (Effient) 10 Mg Tablet 10 MG PO DAILY Tamsulosin ER (Tamsulosin ER) 0.4 Mg Cap.er.24h BID Scheduled PRN Albuterol HFA (Proair HFA) 8.5 Gm Hfa.aer.ad 2 PUFFS INHALATION QID PRN PRN For Shortness of Breath Loperamide (Loperamide) 2 Mg Capsule 2-4 MG PO TID PRN PRN For Diarrhea or Loose Stool Nitroglycerin SL (Nitroglycerin SL) 0.4 Mg Tab.subl 0.4 MG SL Q5MIN PRN PRN For Chest Pain General Time Seen by MD: 18:59 Chief Complaint Chest pain Hx Obtained From: Patient Arrived By: Walk-in Sudden in Onset?: No Onset Occurred: 1 week ago Symptom Duration: 1 - 15 minutes Location: : Chest left: Chest right Quality: Throbbing Radiation: : Arm left: Arm right: Back Severity: Current: No pain currently Severity: Maximum: Moderate Associated with: Reports: Dizziness, Syncope (Near syncope ) Pertinent Negative: Pt denies other symptoms Recent Healthcare: Recent doctor visit, Recent hospitalization Risk Factors )( CAD Risk Stratification Hypertension Known CAD Risk factors reviewed )( TAD Risk Stratification Hypertension Risk factors reviewed )( PE Risk Stratification Risk factors reviewed Past Medical History Past Medical History Notes: Patient states has had "nine stents" placed at [facility] 08/01/2016, 08/04/16, and 08/26/16 Past Medical History CAD - multiple stents, cardiac caths 02/14, 03/12, 04/11, ad 04/17 w/stent placed to proximal LAD overlapping prior stent and "plavix non-responder" Syncope Type two diabetes with neuropathy Chronic back and leg pain Lower extremity DVT "years ago" per patient, details unclear History of migraines BPH Kidney Stones On Warfarin and Plavix HTN [place] 2014 Reports: COPD, Congestive heart failure, Stroke Reports: Heroin use Past Surgical History Shoulder surgery (joint replacement) Left knee surgery Ganglion cyst in right hand Cardiac stents ("x9" - at Prov) Reports: Cholecystectomy Family History Both of the patient's parents are still alive Smoking History Current Every Day Smoker Social History Alcohol Use: Denies alcohol use Drug Use: Denies drug use Other Social History: Good social support, , Local 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 Physical Exam Initial Vital Signs Vital Signs (First) Date Time Temp Pulse Resp B/P Pulse Ox O2 Delivery O2 Flow Rate FiO2 01/14/17 16:23 37.2 91 12 128/84 96 Room Air Initial VS: Reviewed Head / Eyes: Atraumatic, Normocephalic, PERRL Extremities: Vascular intact, Neuro intact, No swelling, No tenderness Skin: Warm, Dry, No cyanosis Neurologic: Alert, Oriented, Nonfocal Psychiatric: Mood/affect normal, Behavior normal, Normal thought content General/Constitutional: Awake, Alert Respiratory / Chest: Atraumatic, Breath sounds NL, Breath sounds = bilat, No respiratory distress Cardiovascular: Heart rate NL, Regular rhythm, Heart sounds NL, No gallop, No murmurs, No rubs Abdomen: Atraumatic, Soft, Non-tender, No distention Interpretation & Diagnostics Lab Results Interpretation Result Diagram: 01/14/17 1715 01/14/17 1715 Test 01/14/17 17:15 01/14/17 19:50 White Blood Count 9.2th/mm3 (3.8-10.1) Red Blood Count 4.83mil/mm3 (4.40-5.80) Hemoglobin 14.2g/dL (13.8-17.2) Hematocrit 42.0% (41.0-50.0) Mean Corpuscular Volume 87.0fL (81-100) Mean Corpuscular Hemoglobin 29.4pg (27.0-35.0) Mean Corpuscular Hemoglobin Concent 33.8% (32.0-37.0) Red Cell Distribution Width 12.9% (12.3-15.4) Platelet Count 190bil/L (150-400) Neutrophils (%) (Auto) 86.3% (40-74) Lymphocytes (%) (Auto) 10.0% (14-46) Monocytes (%) (Auto) 3.1% (4-12) Eosinophils (%) (Auto) 0.2% (0-5) Basophils (%) (Auto) 0.1% (0-3) Sodium Level 134mEq/L (134-144) Potassium Level 4.0mEq/L (3.5-5.2) Chloride Level 97mEq/L (97-108) Carbon Dioxide Level 18mmol/L (18-29) Blood Urea Nitrogen 15mg/dL (6-24) Creatinine 0.98mg/dL (0.76-1.27) Estimat Glomerular Filtration Rate 87mL/min (>59) Glucose Level 489mg/dL (60-99) Calcium Level 8.7mg/dL (8.5-10.1) Magnesium Level 2.0mg/dL (1.6-2.6) Total Bilirubin 0.4mg/dL (0.0-1.2) Aspartate Amino Transf (AST/SGOT) 18U/L (0-50) Alanine Aminotransferase (ALT/SGPT) 20U/L (0-44) Alkaline Phosphatase 127U/L (25-150) Total Protein 7.7g/dL (6.4-8.4) Albumin 4.0g/dL (3.4-5.0) Hold Pereyra Top Tube Received (Received) Troponin T < 0.010ug/L (0.0-0.011) ECG Interpretation ECG Interpretation: Sinus Rhythm Rate 77 bpm Normal axis Normal interval No acute ST segment changes No acute T wave abnormalities Time: 18:00 Interpreted by: ED physician Normal ECG Interpretation: Normal intervals (12/19/16) X-Ray Chest Interpretation Chest Xray Interpretation: IMPRESSION: No acute cardiopulmonary disease. Dictated by: Julio Toro [facility] Interpreted: Mauricio Cruz MD on 01/14/2017 at 17:06 Interpretation / Wet Read by: Interpret - Radiologist Re-Eval/Medical Decision Med Decision/Clinical Course A 46 year old male with history of CAD, type II diabetes mellitus, CHF, stroke, [place], hypertension, frequent ED visits due to angina and multiple cardiac stents presents to the ED complaining of chest pain that began one week ago.Patient was most recently seen in the [place] ED with a negative troponin and normal EKG. These records have been requested bu are not available at this time. Patient was seen in the [facility] ED on 12/[address] Meyer. His workup revealed unremarkable CBC, CMP notable for a glucose of 394, negative troponin, reassuring EKG with no ischemic changes. Patient condition was discussed extensively with the patient's hospice massage therapist who believed the patient's symptoms were most likely due to musculoskeletal etiologies and anxiety. His workup did not indicate need for admission. Today, the patient presents after a near syncopal episode associated with chest pain, dizziness and nausea. Patient describes his pain as a "squeezing, dull throb" that radiates to his arm and back. The episode of dizziness lasted approx. 5 minutes. Family reports that the patient has been dizzy and vomiting for the past week. Here in the emergency department the patient is afebrile, hemodynamically stable with examination as above. He is undertaken 124 mg of aspirin prior to arrival. Laboratory studies notable as below: CBC unremarkable CMP glucose of 489 troponin negative x2 EKG was obtained and interpreted by myself as documented above. CXR: Obtained, reviewed and interpreted by myself shows no evidence of acute infiltrates, effusions or pneumothorax. Cardiac and mediastinal silhouette normal. No bony or soft tissue abnormalities. Patient presenting today similarly to multiple prior presentations. Serial troponins negative and EKG unchanged from priors. This is a very challenging patient. He has multiple emergency department visits with multiple cardiac workups resulting in extensive interventions I am concerned regarding his potential for iatrogenic injury. It is really quite unclear to what degree the patient's presentations related to underlying anxiety versus organic illness. I see no indication at this time that the patient is expressing a acute cardiac ischemia given his negative troponin last night and 2 negative troponins here today. Overall presentation examination not convincing for pulmonary embolism or aortic dissection. Patient was discussed with Dr. Reid given that he has been referred to Dr. Jackman by his previous hospice massage therapist. They will ensure that he gets timely follow-up. At this time, the patient is requesting to be discharged and I feel that close outpatient follow-up is appropriate. He verbalized understanding with the risks associated with discharge and has decisional capacity to decline admission for additional workup. I advised the patient was found which return to the emergency room immediately should he develop any new or recurrent symptoms. He is chest pain-free at this time after receiving one tablet [place]. Follow-up and return precautions were reviewed in detail and he was discharged in stable condition. Time of Eval: 20:30 Patient Status: Condition improved Re-Evaluation/Progress Note: Patient is rechecked. He is informed of his X-ray results, EKG results, lab results and diagnosis. All of the patient's questions are adressed. He understands and agrees with the treatment plan to discharge. Consultation : Referral / Consult Name: Jonathan Goodman MD Consulted With: Cardiology Call Returned at: 19:41 Aquatic Laborer: Will see patient, Agrees with eval, Agrees with plan Note: Will make sure patient is able to schedule an appointment Counseled Regarding: Diagnosis, Lab results, Need for follow-up, When/why to return to ED Discharge & Departure Primary Impression: Chest pain Chest pain type: unspecified Qualified Code: R07.9 - Chest pain, unspecified Additional Impressions: History of coronary artery disease History of heart artery stent Anxiety Disposition: Home Discharge Condition All VS Reviewed: Yes Condition: Stable Patient Instructions: Chest Pain (ED) Additional Instructions: Thank you for seeking care at the emergency room. It is difficult for us to make definitive diagnoses in the ED and a clear cause of your chest pain was not identified. Our primary goal today in the ED was to evaluate you for any life-threatening conditions. Your evaluation was reassuring at this moment. I discussed her case with the partner of Dr. Jackman whom you have been referred. They will work on making sure that you get followed up in a timely manner. I also recommend that you call tomorrow to make sure that you get seen soon. You should return to the ED immediately if you develop new/worsening symptoms, fevers, vomiting, cough, shortness of breath, chest pain, lightheadedness, weakness or any other concerning signs or symptoms. Thank you for letting us partake in your care today. Referrals: Santiago Funez MD (PCP) Najma Jackman MD Attestation Portions of this note were transcribed by Perla Walker. I, Dr. Meyer personally performed the history, physical exam and medical decision-making; I reviewed and confirmed the accuracy of the information in the transcribed note. Signed by: Cindy Ford, 01/14/17 2100. copies to: Santiago Funez MD; Najma Jackman MD, Beck O MD Jan 14, 2017 19:04 PERLA WALKER Jan 14, 2017 19:41
[2017-01-14] MEDS ORDERED: HYDROcodone-APAP 5-325 mg Tablet PO ONE ×2 (19:40→20:35)
[2017-01-14 20:51] VITALS: PULSE 79; RESP 19; O2SAT 95
== END 2017-01-14 20:47 | disposition home or self-care (01) ==
LOC: SED 16:16
DX: R07.89 Other chest pain (principal); F41.9 Anxiety disorder, unspecified; I11.0 Hypertensive heart disease with heart failure; E11.59 Type 2 diabetes mellitus with other circulatory complications; J44.9 Chronic obstructive pulmonary disease, unspecified; I25.2 Old myocardial infarction; Z86.73 Personal history of transient ischemic attack (TIA), and cerebral infarction without residual deficits; Z79.4 Long term (current) use of insulin; Z79.82 Long term (current) use of aspirin; Z95.5 Presence of coronary angioplasty implant and graft; F17.200 Nicotine dependence, unspecified, uncomplicated; Z88.0 Allergy status to penicillin; Z88.5 Allergy status to narcotic agent; Z88.8 Allergy status to other drugs, medicaments and biological substances; Z91.030 Bee allergy status
CPT/HCPCS: 36415; 71010; 80053; 83735; 84484; 85025; 93005; 99285; J2405

== ENCOUNTER 2017-01-18 20:35 | Observation (INO) | payer OTHER ==
[~2017-01-18] VITALS: Ht 172.7 cm; Wt 123.8 kg
[2017-01-18 20:44] VITALS: BP 122/71; PULSE 81; RESP 20; O2SAT 94
[2017-01-18 20:51] LABS: BASOPHILS % (AUTO) 0.3 % (0-3); EOSINOPHILS % (AUTO) 1.2 % (0-5); MONOCYTES % (AUTO) 7.6 % (4-12); Mean Corpuscular Hemoglobin 30.2 pg (27.0-35.0); Mean Corpuscular Volume 84.9 fL (81-100); NEUTROPHILS % (AUTO) 64.3 % (40-74); Platelet Count 217 bil/L (150-400)
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
[2017-01-18 21:13] LABS: TROPONIN T 0.01 ug/L (0.0-0.011)
[2017-01-18] MEDS ORDERED: Ondansetron 2 mg/mL 2 mL Inj IVPUSH ONE (21:20)
--- NOTE | 2017-01-18 21:39 | DRSVH ---
PROCEDURE: X-RAY CHEST ONE VIEW, PORTABLE ([id number]) INDICATIONS: Chest pain TECHNIQUE: One view of the chest was acquired. COMPARISON: [facility], CR, XR CHEST 1VW (PORTABLE), 01/14/2017, 16:45. FINDINGS: Surgical changes and devices: None. Lungs and pleura: No pleural effusions or pneumothorax. Lungs are clear. Mediastinum: Mediastinal contours appear normal. Heart size is normal. Bones and chest wall: No suspicious bony lesions. Overlying soft tissues appear unremarkable. IMPRESSION: 1. No acute cardiopulmonary disease. Dictated by: Maikol Jacinto M.D. on 01/18/2017 at 21:37 Approved by: Maikol Jacinto M.D. on 01/18/2017 at 21:38
--- NOTE | 2017-01-18 22:03 | DRSVH ---
PROCEDURE: CT BRAIN WITHOUT CONTRAST ([id number]) INDICATIONS: head trauma, anticoagulated TECHNIQUE: Noncontrast 4.5 mm thick angled axial sections acquired from the foramen magnum to the vertex, with c oronal reformats. COMPARISON: [facility], CT, CT BRAIN WO CON, 11/21/2016, 20:06. FINDINGS: Image quality: Excellent. CSF spaces: Basal cisterns are patent. No extra-axial fluid collections. Ventricles are normal in size and shape. Brain: No intracranial hemorrhage, mass, or mass effect. Haider-white matter interface is preserved. Skull and face: Calvarium and visualized facial bones are intact, without suspicious lesions. Sinuses: Visualized sinuses and mastoids are clear. IMPRESSION: 1. No hemorrhage or other acute intracranial abnormality. Dictated by: Maikol Jacinto M.D. on 01/18/2017 at 21:59 Approved by: Maikol Jacinto M.D. on 01/18/2017 at 22:01
[2017-01-18] MEDS ORDERED: oxyCODONE-Acetamin 5-325 mg Tablet PO ONE (22:45)
[2017-01-18 23:01] VITALS: BP 117/71; PULSE 65; RESP 20; O2SAT 99
[2017-01-18] MEDS ORDERED: Alum-Mag Hydrox-Simeth 30 mL Suspension PO PRN (23:15)
[2017-01-18] MEDS ORDERED: Atropine 1 mg/10 mL (Code) Syringe IVPUSH PRN (23:15)
[2017-01-18] MEDS ORDERED: Polyethylene Glycol (PEG) 17 Gm Powder PO PRN (23:15)
[2017-01-18] MEDS ORDERED: Senna-Docusate 8.6-50 mg Tablet PO PRN (23:15)
[2017-01-18] MEDS ORDERED: Ondansetron 2 mg/mL 2 mL Inj IVPUSH PRN (23:15)
[2017-01-18] MEDS ORDERED: Glucose 40% Oral Gel 15 Gm Tube PO PRN (23:45)
[2017-01-19] VITALS (11 sets, daily range): BP systolic 99–136; BP diastolic 57–81; PULSE 57–77; RESP 18–20; O2SAT 94–97
--- NOTE | 2017-01-19 00:08 | PCM.HPMED ---
Subjective Date of Service Jan 18, 2017 Primary Provider: Admitting Physician: Primary Care Physician: Santiago Funez MD Attending Physician: Admit Status: From the Emergency Department, 23-Hour Observation, Remote Telemetry Chief Complaint: Syncope History of Present Illness: 46 year old male with Coronary artery disease, type II diabetes mellitus, CHF, stroke, IA, hypertension, frequent ED visits due to angina and multiple cardiac stents presents to the [facility] emergency department via EMS due to a syncopal episode Episode occurred earlier today. Patient reported he came downstairs from the bathroom, felt very dizzy, grabbed the counter, and lost consciousness. He woke up after less then 1 minute of unconsciousness, felt nauseous and began vomiting. He lost bowel control after vomiting, he pooped in his pants. He denies any fever or chills. Currently he denies any dyspnea or chest pain He c/o associated headache and shoulder pain. In the past 2 days, every time he lays down vertically he feels like he's choking and can't breathe. Patient previous episodes of syncope was associated with urinary incontinence as well. Mother reported patient had meningitis as a kid and has seizures requiring seizure medications for about 2 years but has not have them for years. He has been seen here several times since October, most recently seen on for unspecified chest pain. Of note there are documentations of possible drug seeking behavior Case discussed with Dr Woodall, plans to admit due to significant co morbidities. He spoke to Dr Jackman who will be consulting. CT head and Chest unremarkable to explain his current symptoms and complaints. Review of Systems: Pertinent positives as noted in HPI. All other systems were reviewed and are negative Allergies Coded Allergies: Honey Bee (Verified Allergy, Severe, anaphylaxis, 10/27/16) Penicillins (Verified Allergy, Intermediate, itching, and hives, 01/14/17) sumatriptan (Verified Allergy, Intermediate, Shakes and burning, 10/27/16) TAPE (Verified Allergy, Mild, blisters, 10/27/16) hydromorphone (Verified Adverse Reaction, Intermediate, very drowsy and nauseated, 01/14/17) Home Medications From Discharge Summary, not yet confirmed Aspirin (Aspirin) 81 Mg Tablet 81 MG PO DAILY (Reported) Atorvastatin (Lipitor) 80 Mg Tablet 80 MG PO HS (Reported) Clopidogrel (Clopidogrel) 75 Mg Tablet 75 MG PO DAILY (Reported) Doxazosin Mesylate (Doxazosin Mesylate) 4 Mg Tablet 4-8 MG PO HS (Reported) Finasteride (Finasteride) 5 Mg Tablet 5 MG PO DAILY (Reported) Fluoxetine (Fluoxetine) 20 Mg Capsule 20 MG PO DAILY (Reported) Furosemide (Furosemide) 40 Mg Tablet 40 MG PO BID (Reported) Gabapentin (Gabapentin) 300 Mg Capsule 1,200 MG PO TID (Reported) Insulin Glargine (Lantus U100 Insulin Vial) 100 Unit/Ml Vial 100 UNIT SUBQ BID ( Reported) Insulin Regular, Human (HUMulin-R U100 Insulin Vial) 100 Unit/1 Ml Vial 80 UNIT SUBQ BIDAC (Reported) Isosorbide MN ER (Isosorbide MN ER) 60 Mg Tab.er.24h 60 MG PO DAILY (Reported) Lisinopril (Lisinopril) 2.5 Mg Tablet 2.5 MG PO DAILY (Reported) Metoprolol Succinate ER (Metoprolol Succinate ER) 25 Mg Tab.er.24h 12.5 MG PO DAILY (Reported) Pantoprazole DR (Pantoprazole DR) 20 Mg Tablet.dr 20 MG PO DAILY (Reported) Potassium Chloride (Potassium Chloride) 20 Meq Tab.er.prt 20 MEQ PO DAILY ( Reported) Tamsulosin ER (Tamsulosin ER) 0.4 Mg Cap.er.24h BID (Reported) As needed Albuterol HFA (Proair HFA) 8.5 Gm Hfa.aer.ad 2 PUFFS INHALATION QID PRN PRN For Shortness of Breath (Reported) Loperamide (Loperamide) 2 Mg Capsule 2-4 MG PO TID PRN PRN For Diarrhea or Loose Stool (Reported) Nitroglycerin SL (Nitroglycerin SL) 0.4 Mg Tab.subl 0.4 MG SL Q5MIN PRN PRN For Chest Pain (Reported) Oxycodone HCl/Acetaminophen (Endocet 10-325 mg Tablet) 1 Each Tablet 1-2 EACH PO Q4H PRN PRN For Pain (Reported) PMH Diabetes mellitus type 2-insulin dependent Morbid obesity Chronic pain with narcotic dependence Cervical disk disease Chronic low back pain BPH Diabetic associated neuropathy Depression Dyslipidemia GERD Ongoing tobacco abuse Hypertension Meningitis at age 11. 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 Surgical History Left rotator cuff surgery x2 Right knee surgery Left knee surgery Ganglion cyst in right hand Cardiac stents ("x9" - at [facility]) Cholecystectomy Family History Father w/diabetes and IA at 49- Mother CABG at 59 Grandmother- IA at 47 Grandfather-CVA Social History Hx Alcohol Use: No Hx Substance Use: No Hx Tobacco Use: Yes Smoking Status: Current Every Day Smoker Living Arrangement: with Family Exam Vital Signs Vital Sign - Last Date Time Temp Pulse Resp B/P Pulse Ox O2 Delivery O2 Flow Rate FiO2 01/18/17 23:01 36.2 65 20 117/71 99 Room Air 01/18/17 20:44 2 Exam General: Alert, Oriented X3, Cooperative, No acute Distress Eyes: PERRLA, Scleral Anicteric Mouth: Mouth Normal, Mucous Membranes Moist/[place] Neck: Supple, no Thyromegaly, trachea central. Chest & Lungs: Clear to auscultation & percussion, No adventitious breath sounds, no crackles, no wheeze Cardiovascular: Normal S1, Normal S2, No Murmurs/Rubs/Gallops, Regular Rate/ Rhythm, (No JVD, no peripheral edema) Pulses: Radial (present and equal), Dorsalis Pedi (present and equal) Abdomen: Soft, Non-tender, Non-distended, Normoactive bowel tones. Musculoskeletal: Unremarkable. Normal range of motion, no swollen or erythematous joints Extremities: No edema, no cyanosis, no clubbing. Skin: No rashes. Warm and dry, no erythematous areas Neurological: Grossly neurologically intact, Normal Speech, Sensation Intact Lymphatic: Lymph nodes Cervical and Axillary not palpable. Lab and Diagnostics Labs Laboratory Tests Test 01/18/17 20:37 White Blood Count 12.1th/mm3 (3.8-10.1) Red Blood Count 4.90mil/mm3 (4.40-5.80) Hemoglobin 14.8g/dL (13.8-17.2) Hematocrit 41.6% (41.0-50.0) Mean Corpuscular Volume 84.9fL (81-100) Mean Corpuscular Hemoglobin 30.2pg (27.0-35.0) Mean Corpuscular Hemoglobin Concent 35.6% (32.0-37.0) Red Cell Distribution Width 12.7% (12.3-15.4) Platelet Count 217bil/L (150-400) Neutrophils (%) (Auto) 64.3% (40-74) Lymphocytes (%) (Auto) 26.4% (14-46) Monocytes (%) (Auto) 7.6% (4-12) Eosinophils (%) (Auto) 1.2% (0-5) Basophils (%) (Auto) 0.3% (0-3) D-Dimer 0.6mg/L (<0.50) Sodium Level 134mEq/L (134-144) Potassium Level 4.0mEq/L (3.5-5.2) Chloride Level 94mEq/L (97-108) Carbon Dioxide Level 22mmol/L (18-29) Blood Urea Nitrogen 23mg/dL (6-24) Creatinine 1.11mg/dL (0.76-1.27) Estimat Glomerular Filtration Rate 75mL/min (>59) Glucose Level 311mg/dL (60-99) Calcium Level 9.6mg/dL (8.5-10.1) Magnesium Level 2.0mg/dL (1.6-2.6) Total Bilirubin 0.4mg/dL (0.0-1.2) Aspartate Amino Transf (AST/SGOT) 21U/L (0-50) Alanine Aminotransferase (ALT/SGPT) 17U/L (0-44) Alkaline Phosphatase 118U/L (25-150) Troponin T 0.010ug/L (0.0-0.011) Total Protein 8.1g/dL (6.4-8.4) Albumin 4.0g/dL (3.4-5.0) Result Diagram: 01/18/17203601/18/[id number] X-Rays, CTs and MRIs CT BRAIN WITHOUT CONTRAST 01/18 IMPRESSION: 1. No hemorrhage or other acute intracranial abnormality. Dictated by: Maikol Jacinto M.D. on 01/18/2017 at 21:59 Approved by: Maikol Jacinto M.D. on 01/18/2017 at 22:01 X-RAY CHEST ONE VIEW, PORTABLE 01/18 IMPRESSION: 1. No acute cardiopulmonary disease. Dictated by: Maikol Jacinto M.D. on 01/18/2017 at 21:37 Approved by: Maikol Jacinto M.D. on 01/18/2017 at 21:38 Assessment & Plan Bernardo Koenig is a 46 year old obese male with a past medical history significant for CAD s/p stent placement x9, uncontrolled DM2 with neuropathy and chronic pain with narcotic dependence who presented to [facility] Emergency department via EMS due to a syncopal episode 1. Acute Syncope. Present on admission Etiology unclear suspect Cardiac causes such as Arrhythmia or Atrial myxoma. Pulmonary embolism has been ruled out with CT angiogram. Non cardiac causes are also investigated such as Orthostatic hypotension. Differential diagnosis includes Stoke, Seizure, Hypoglycemia (ruled out) or Vertigo. Of note this is not the first episode of syncopal episode in this patient. Also consider Psychogenic - monitor on telemetry, monitoring for arrhythmia - consider Zio patch - repeat an echo tomorrow - orthostatic checks - MRI brain scheduled for tomorrow - may consider a seizure workup with an EEG 2. Coronary artery disease s/p 9 stents, Presumed stable. [employer] is at [facility]. Multiple admissions for chest pain with negative workup. - EKG showing no ischemic changes - Chest X ray unremarkable, no widening mediastinum - continue antiplatelet and Statin - Dr Jackman has been consulted 3. Diabetes mellitus type 2, - checking A1c, - Insulin lispro high dose correctional - Accuchecks AC + HS 4 Nicotine Dependence - child and family counselor, discussed cessation and encouraged - nicotine patch on request 5 Chronic pain on narcotics Documentations of narcotic seeking behavior and will be closely monitored - resume home dosing of oral pain medications - no indications for parenteral narcotics 6 Obesity BMI 41.1 Discussed weight loss and exercise coupled with healthy eating - Acetaminophen as needed for mild pain/fever/headache - Bowel regimen as needed - Antiemetic as needed Patient is admitted under observation status with expected length of stay less than 2 midnights due to severity of presenting symptoms, risk of adverse event, and complexity of treatment plan . Resuscitation Status: CPR: Attempt Resuscitation Hayden Escamilla MD Jan 18, 2017 23:17
[2017-01-19 00:44] LABS: Creatine Kinase 69 U/L (21-232)
[2017-01-19] MEDS: 0.9% Sodium Chloride 1,000 ML IV SCH ×2 (00:54→11:41)
[2017-01-19] MEDS: Sodium Chloride LOK Flush 10 mL Syringe IVFLUSH SCH ×3 (00:54→16:39)
[2017-01-19] MEDS: Heparin 5,000 Unit/mL Inj SUBQ SCH ×3 (00:54→16:39)
[2017-01-19] MEDS: oxyCODONE-Acetamin 10-325 mg Tablet PO PRN ×5 (01:31→20:31)
--- NOTE | 2017-01-19 06:20 | NUR ---
Admission Pt arrived to room 3013 alert and oriented, able to self transfer from ED bed to [facility] bed. Pt complaint of head ache and shoulder pain around back of neck. Md was consulted who ordered percocet. Percocet given with good relief of symptoms. Pt was oriented to room, call light, bed and policies. Pt was placed on telemetry as well as IV fluids. Home med list updated with Pt and his 's memory.
--- NOTE | 2017-01-19 07:23 | DRSVH ---
PROCEDURE: X-RAY RIGHT SHOULDER, MINIMUM TWO VIEWS ([id number]) INDICATIONS: trauma, pain TECHNIQUE: 4 views of the shoulder were acquired. COMPARISON: None. FINDINGS: Bones: No fractures or dislocations. No suspicious bony lesions. Visualized ribs appear intact. M oderate periarticular osteophyte formation at the acromioclavicular joint. Soft tissues: No suspicious soft tissue calcifications. IMPRESSION: Acromioclavicular joint osteoarthritis. No acute fracture. No osseous lesion. If clinical suspicion and/or symptoms persist, further assessment with repeat plainfilms, or advanced imaging (e .g., CT, MRI, or bone scan) may be helpful for further assessment. Dictated by: Simba Grullon M.D. on 01/19/2017 at 7:17 Approved by: Simba Grullon M.D. on 01/19/2017 at 7:22
[2017-01-19 07:25] LABS: BASOPHILS % (AUTO) 0.5 % (0-3); EOSINOPHILS % (AUTO) 2.4 % (0-5); MONOCYTES % (AUTO) 5.6 % (4-12); Mean Corpuscular Hemoglobin 29.5 pg (27.0-35.0); Mean Corpuscular Volume 85.8 fL (81-100); NEUTROPHILS % (AUTO) 57.1 % (40-74); Platelet Count 175 bil/L (150-400)
--- NOTE | 2017-01-19 07:46 | DRSVH ---
PROCEDURE: CT ANGIO CHEST PULMONARY EMBOLISM ([id number]) INDICATIONS: syncope, CP, +Dimer TECHNIQUE: After the administration of intravenous contrast, 2 mm thick sections acquired from the pulmonary api judith to the posterior costophrenic angles. 3-dimensional maximum intensity projection (MIP) coronal a nd sagittal reformats were then acquired through the thorax. For radiation dose reduction, the follo wing was used: automated exposure control, adjustment of mA and/or kV according to patient size. COMPARISON: [facility], CR, XR CHEST 1VW (PORTABLE), 01/18/2017, 20:39. [facility], CT, CT ANGIO CHEST PE, 10/23/2016, 19:15. FINDINGS: Image quality: Excellent. Pulmonary arteries: Pulmonary arteries are normal in size, and demonstrate no intraluminal filling d efects to suggest central pulmonary embolism. Lungs and pleura: Lungs are clear. No pleural effusions or pneumothorax. Central and peripheral ai rways are patent. Mediastinum: Heart size is normal, without pericardial effusion. Calcification of the coronary vasc ulature. No mediastinal or hilar adenopathy. Thoracic aorta is normal in caliber and enhancement. E sophagus is normal in caliber, without hiatal hernia. Bones and chest wall: No suspicious bony lesions. Ribs and thoracic spine appear intact throughout. Thyroid gland is within normal limits as visualized. No axillary or supraclavicular adenopathy. Abdomen: Visualized upper abdominal solid organs appear normal in the early arterial phase of enhanc ement. IMPRESSION: 1. No acute process. No pulmonary embolus. 2. Coronary artery disease. 3. Concordant with preliminary interpretation. Dictated by: Simba Grullon M.D. on 01/19/2017 at 7:42 Approved by: Simba Grullon M.D. on 01/19/2017 at 7:45
[2017-01-19] MEDS: Insulin LISPRO 300 Unit/3 mL Inj SUBQ SCH ×4 (07:48→20:44)
[2017-01-19 08:01] LABS: Creatine Kinase 71 U/L (21-232)
--- NOTE | 2017-01-19 10:50 | PCM.PNMED ---
Subjective Date of Service Jan 19, 2017 Subjective - Pt seen and examined this morning. He is AAO x 3 - Not in acute distress -Denies chest pain, shortness of breath. States that he is feeling better than yesterday. Exam Vital Signs Vital Sign - Last Date Time Temp Pulse Resp B/P Pulse Ox O2 Delivery O2 Flow Rate FiO2 01/19/17 08:11 74 101/73 95 01/19/17 08:09 36.8 18 Room Air 01/18/17 20:44 2 Intake and Output 01/18/17 01/18/17 01/19/17 Cumulative From/Thru 15:00 23:00 07:00 01/18/17 20:44 - 01/19/17 06:25 Intake Total 536 ml 536 ml Output Total 350 ml 350 ml Balance 186 ml 186 ml Intake Oral 536 ml 536 ml Output Urine Total 350 ml 350 ml Exam General: Alert, Oriented X3, Cooperative, No acute Distress. Obese Eyes: PERRLA, Scleral Anicteric Mouth: Mouth Normal, Mucous Membranes Moist/[place] Neck: Supple, no Thyromegaly, trachea central. Chest & Lungs: Clear to auscultation & percussion, No adventitious breath sounds, no crackles, no wheeze Cardiovascular: Normal S1, Normal S2, No Murmurs/Rubs/Gallops, Regular Rate/ Rhythm, (No JVD, no peripheral edema) Pulses: Radial (present and equal), Dorsalis Pedi (present and equal) Abdomen: Soft, Non-tender, Non-distended, Normoactive bowel tones. Musculoskeletal: Unremarkable. Normal range of motion, no swollen or erythematous joints Extremities: No edema, no cyanosis, no clubbing. Skin: No rashes. Warm and dry, no erythematous areas Neurological: Grossly neurologically intact, Normal Speech, Sensation Intact Lymphatic: Lymph nodes Cervical and Axillary not palpable. IVs and Medications Medications Reviewed: Medications were reviewed in detail Lab and Diagnostics Result Diagram: 01/19/[id number]/[id number] X-Rays, CTs and MRIs CT BRAIN WITHOUT CONTRAST 01/18 IMPRESSION: 1. No hemorrhage or other acute intracranial abnormality. Dictated by: Maikol Jacinto M.D. on 01/18/2017 at 21:59 Approved by: Maikol Jacinto M.D. on 01/18/2017 at 22:01 X-RAY CHEST ONE VIEW, PORTABLE 01/18 IMPRESSION: 1. No acute cardiopulmonary disease. Dictated by: Maikol Jacinto M.D. on 01/18/2017 at 21:37 Approved by: Maikol Jacinto M.D. on 01/18/2017 at 21:38 Assessment & Plan Bernardo Koenig is a 46 year old obese male with a past medical history significant for CAD s/p stent placement x9, uncontrolled DM2 with neuropathy and chronic pain with narcotic dependence who presented to [facility] Emergency department via EMS due to a syncopal episode 1. Acute Syncope. Present on admission Etiology unclear suspect Cardiac causes such as Arrhythmia or Atrial myxoma. Pulmonary embolism has been ruled out with CT angiogram. Non cardiac causes are also investigated such as Orthostatic hypotension. Differential diagnosis includes Stoke, Seizure, Hypoglycemia (ruled out) or Vertigo. Of note this is not the first episode of syncopal episode in this patient. Also consider Psychogenic - monitor on telemetry, monitoring for arrhythmia - consider Zio patch - ECHO, MRI brain pending - may consider a seizure workup with an EEG 2. Coronary artery disease s/p 9 stents, Presumed stable. [employer] is at [facility]. Multiple admissions for chest pain with negative workup. - EKG showing no ischemic changes - Chest X ray unremarkable, no widening mediastinum - continue antiplatelet and Statin - Dr Jackman has been consulted. Pending evaluation 3. Diabetes mellitus type 2, - A1c pending - Insulin lispro high dose correctional - Accuchecks AC + HS 4 Nicotine Dependence - college admissions counselor, discussed cessation and encouraged - nicotine patch 5 Chronic pain on narcotics Documentations of narcotic seeking behavior and will be closely monitored - resume home dosing of oral pain medications - no indications for parenteral narcotics 6 Obesity BMI 41.1 Discussed weight loss and exercise coupled with healthy eating - Acetaminophen as needed for mild pain/fever/headache - Bowel regimen as needed - Antiemetic as needed . VTE Mechanical Devices: Intermittant Pneumatic CD Resuscitation Status: CPR: Attempt Resuscitation Wallace Valentine MD Jan 19, 2017 10:50
--- NOTE | 2017-01-19 11:26 | DRSVH ---
PROCEDURE: MRI SEIZURE BRAIN WITH AND WITHOUT CONTRAST ([id number]) INDICATIONS: seizure TECHNIQUE: Noncontrast axial T1 spin echo, axial T2 fast spin echo, sagittal and axial FLAIR, axial gradient ech o, axial diffusion and ADC, coronal thin-slice T2 FSE through the brain. Optional contrast, followed by axial and coronal 3D VIBE or T1 spin echo with fat saturation sequences through the brain. COMPARISON: [facility], CT, CT BRAIN WO CON, 01/18/2017, 21:48. FINDINGS: Image quality: Excellent. CSF spaces: Ventricles are normal in size and shape. Basal cisterns are patent. No extra-axial flu id collections. Brain: No intracranial bleeds or mass effects. No abnormal intracranial enhancement. Haider-white ma tter interface appears intact. Diffusion weighted images demonstrate no acute ischemic insults. Bra instem appear normal. Normal intravascular flow voids are present. The hippocampal regions appear n ormal and symmetric in morphology. Skull and face: Calvarial marrow signal is normal. Orbits appear normal. Sinuses: Sinuses and mastoids are clear. IMPRESSION: Normal for age, source of current symptoms is not seen. Dictated by: Mauricio Cruz M.D. on 01/19/2017 at 11:20 Approved by: Mauricio Cruz M.D. on 01/19/2017 at 11:24
--- NOTE | 2017-01-19 15:16 | NUR ---
Social Work: Screen Data/Assessment: Per EMR review, pt is a 46 year old male admitted for Chest pain, syncope. Pt is [facility] Blind/Disabled. PCP is Santiago Funez MD. REJI Koenig MD. Advanced directives have been completed but not on file- pt will bring in a copy. Readmit score is not entered at this time. [employer] CAR[employer] OPERATIONS SUPERVISOR met with pt at bedside. Sw role and contact info provided. Pt lives in [place] with his s/o. He is I with ADLS and does not use any DME. Pt has never had HH or SNF placements. Pt states he has no concerns about d/c home and that his or daughter will transport him. EMR reviewed, pt has been I at baseline. Plan: Anticipate pt to discharge home via POV once medically stable; AIR CAR[employer] GR[employer] OPERATIONS SUPERVISOR to continue to follow. ANTHONY Yo
--- NOTE | 2017-01-19 19:31 | DRSVH ---
[facility] [address] [place] [address] Echocardiogram Report Name: KAJAL TELLO DStudy Enrrique e: 01/19/2017 Height: 68 in Hospital Exam Location: [facility] Weight: 277 lb Gender: Male BSA: 2.3 m2 : 1970 Age: 46 yrs BP: 99/57 mm Hg Reason For Study: Chest pain Ordering Physician: HOSPITALIST [facility] Performed By: Maryan Germain Referring Physician: SAGE COELHO Interpretation Summary Sinus bradycardia; heart rate is 51-55 bpm. Normal LV size. Normal wall thickness; there is basal inferior, mid-inferior and basal inferoseptal hypokinesis. Otherwise normal wall motion. EF is 60- 65%. Stage I diastolic dysfunction. No significant valvular abnormalities. Compared to prior study 11/22/2016 focal wall motion abnormalities are newly appreciated. However, technically study is much better this time versus last time, so [id number] comparison is difficult. Procedure: A two-dimensional transthoracic echocardiogram with color flow and Doppler was performed. The study quality was technically difficult. A contrast injection of Definity was performed to improve assessment of LV function. Comparison is made with the echocardiogram of 11-22-16. The patient was in normal sinus rhythm during the exam. Left Ventricle: The left ventricle is normal in size. The ejection fraction is estimated to be 60-65%. there is basal inferior, mid-inferior and basal inferoseptal hypokinesis. The E/A ratio is reversed, suggesting impaired early relaxation of the left ventricle or a reduced preload state. Right Ventricle: The right ventricle grossly appears normal in size with probable normal systolic function. Atria: Borderline left atrial enlargement. The right atrium grossly appears normal in size. Mitral Valve: The mitral valve is normal in structure and function. There is no mitral regurgitation noted. Aortic Valve: The aortic valve opens well. No aortic regurgitation is present. Tricuspid Valve: The tricuspid valve leaflets are thin and pliable. No tricuspid regurgitation. Pulmonic Valve: The pulmonic valve is normal in structure and function. There is no pulmonic valvular regurgitation. Great Vessels: The aortic root is normal size. The dimensions of the ascending aorta are normal. The inferior vena cava was not visualized. Pericardium/ Pleura There is no pericardial effusion. There is no pleural effusion. MMode/2D Measurements & Calculations LVIDd: 5.4 cm LA dimension Ao root diam LV ahmadi. diameter/BSA LVIDs: 3.5 cm (cm/m^2): 2.3 FS: 34.6 % Aortic Jxn IVSd: 0.88 cm LVPWd: 1.0 cm asc Aorta Diam: 3.4 cm LV sys. diameter/BSA (cm/m^2): 1.5 Doppler Measurements & Calculations Ao V2 max MV E max stan MV E/A: 0.90 PA V2 max : 137.5 cm/sec : 96.8 cm/sec Med Peak E' Stan : 86.2 cm/sec Ao max PG MV A max stan PA mean PG : 7.6 mmHg : 108.1 cm/sec E/E' med: 9.9 Ao mean PG MV P1/2t: 84.5 msec Lat Peak E' Stan PA Accel Time : 3.6 mmHg : 0.11 sec E/E' lat: 11.2 E/e' average: 10.6 MV A dur: 0.15 sec MV dec time MV P1/2t max stan Ao V2 mean PA V2 mean : 0.29 sec : 88.1 cm/sec : 59.5 cm/sec Ao V2 VTI: 30.2 cm MVA(P1/2t): 2.6 cm2 Reading Physician:07:30 PM
--- NOTE | 2017-01-19 19:41 | NUR ---
Elevated BG BG elevated today in the 200-300 range. I noticed patient snacking several times on candy and soda, and did a little teaching on diet and DMII. Pt. understands and says he is working on cutting down on carbs.
--- NOTE | 2017-01-19 23:37 | NUR ---
neck discomfort patient complains of neck discomfort rates 3. requests ice pack given. plan to re evaluate.
[2017-01-20] MEDS: 0.9% Sodium Chloride 1,000 ML IV SCH (00:11)
[2017-01-20 00:29] VITALS: BP 131/83; PULSE 63; RESP 18; O2SAT 95
[2017-01-20] MEDS: Heparin 5,000 Unit/mL Inj SUBQ SCH ×2 (00:34→09:14)
[2017-01-20] MEDS: oxyCODONE-Acetamin 10-325 mg Tablet PO PRN ×3 (00:34→09:14)
[2017-01-20] MEDS: Sodium Chloride LOK Flush 10 mL Syringe IVFLUSH SCH ×2 (00:38→09:14)
--- NOTE | 2017-01-20 02:54 | CONS ---
[address] [address] CONSULTATION REPORT PATIENT: KAJAL TELLO : 1970 MR#: [id number] ADMIT: 01/18/2017 JOB ID: [id number] DATE OF SERVICE: 01/19/2017 CHIEF COMPLAINT: Chest pain. HISTORY OF PRESENT ILLNESS: The patient is a 46-year-old man with multiple cardiovascular problems including coronary artery disease, status post multiple interventions to proximal right coronary artery, PDA March 13, 2016, and drug-eluting stent deployed to LAD in March 2016. He says that he has had multiple interventions with Dr. Quintero for basically exertional chest discomfort. The patient says that, unfortunately, despite multiple interventions he continues to have exertional chest pain even with mild activity. He also experiences severe dizziness when going from sitting to standing position. As an outpatient, he is closely monitored by Dr. Funez, his primary care provider. The patient also has multiple other health conditions, including diabetes, hypertension, chronic pain syndrome, on opioid pain medication and gabapentin, as well as peripheral neuropathy and BPH. PAST MEDICAL HISTORY: 1. Coronary artery disease. a. Drug-eluting stent to proximal RCA in January 2016. b. Bare-metal stent to right posterior descending artery March 12, 2016. c. Drug-eluting stent to left anterior descending April 11, 2016. d. Drug-eluting stent to LAD April 15, 2016. 2. Diabetes mellitus for 20 years with diabetic neuropathy. 3. GERD. 4. Hyperlipidemia. 5. BPH. 6. Low back pain. 7. History of left shoulder surgery. 8. Gallbladder surgery. 9. Knee surgery. SOCIAL HISTORY: Patient started smoking when he was 7 years old. He smoked up to three packs per day in the past. He, unfortunately, still smokes. He denies drinking. His , January, is accompany him at bedside. FAMILY HISTORY: Patient's mom had CABG at 59. Father had cardiac arrest at 49 years old. Grandfather suffered a stroke. Grandmother from heart attack at 47 years old. CURRENT MEDICATIONS: In the hospital: 1. Aspirin 81 mg daily. 2. Plavix 75 mg daily. 3. Lipitor 10 mg daily. 4. Lexapro sliding scale insulin. 5. Finasteride 5 mg daily. 6. Oxycodone 10/325, 2 tablets every 4 hours as needed for pain. Home medications. The patient says she has: 1. Aspirin 81 mg daily. 2. Plavix 75 mg daily. 3. She believes she takes simvastatin 40 mg daily. 4. Furosemide 40 mg twice a day. 5. Potassium chloride 20 mEq daily. 6. Lisinopril 5 mg twice a day. 7. Doxazosin 4 mg twice a day. 8. Tamsulosin. 9. Toprol-XL 25 mg half a tablet daily. 10. Imdur 60 mg daily. 11. Lantus. He says he is pretty sure that he takes both doxazosin and tamsulosin. ALLERGIES: 1. HONEY BEES. 2. SUMATRIPTAN. REVIEW OF SYSTEMS: No bright red blood per rectum. No hematuria. Otherwise, 10 point review of systems is negative. PHYSICAL EXAMINATION: Vital signs: Temperature 36.8. Blood pressure 99/57, up to 136/73. Pulse 57, up to 77 beats per minute. Satting 94% to 97% on room air. Well-nourished man in no apparent distress. Eyes: No scleral icterus. Has tello facies and multiple facial tattoos. Heart: Normal S1, S2. No murmurs. Lungs showed decreased breath sounds bilaterally. Could be due to emphysema. Abdomen is soft, positive bowel sounds. No hepatosplenomegaly. Extremities: Warm, well perfused. No clubbing, cyanosis, or edema. Skin: No rashes or lesions. DIAGNOSTIC STUDIES: EKG shows normal axis. No left ventricular hypertrophy. Possible left atrial enlargement. Poor R-wave progression in precordial leads. Echocardiogram shows sinus bradycardia, heart rate 51 to 55 beats per minute. Normal LV size, wall thickness. Basal inferior, mid inferior, basal inferior septal hypokinesis. EF 60% to 65%. No valvular abnormalities. Compared to prior study November 22, 2016, focal wall motion abnormality appreciated. However, technically study is much better at this time versus last time, so [id number] comparison is difficult, and it is possible the focal wall motion abnormalities were there in hindsight and were unrecalled due to quality issues. ASSESSMENT AND PLAN: This is a complex 46-year-old man with multiple percutaneous interventions to the left anterior descending and right coronary arteries, who comes in complaining of severe dizziness when he goes from sitting to standing position, weakness and chest pain that tends to occur when he is doing physical activity. It is pressure-like, but sometimes sharp, lasts a few minutes, and tends to respond on its own. Occasionally, he does take nitroglycerin and he says it helps him. PLAN: 1. Coronary artery disease: His most recent drug-eluting stent was deployed to LAD in March 2016 according to he was supposed to continue dual antiplatelet therapy for a year. He has not had any adverse effect with dual antiplatelet therapy. Encouraged him to continue aspirin and Plavix until March 2017 and then he can stop the Plavix and do aspirin alone afterward. 2. Hyperlipidemia: Patient says he takes simvastatin daily. Technically, he should be on high-intensity statin due to multivessel CAD. His current lipids are total cholesterol 120, triglycerides 246, HDL 37, LDL of 34. I think it is okay to stop the simvastatin and try Lipitor instead and see how he does. 3. Volume status: Patient is dry and euvolemic on exam. So far, Lasix has been held and he has done well. His LV systolic function is normal. It is possible that combination of lisinopril and long-acting nitrate and beta-antonella is potentiating dizziness, particularly since he has intermittent sinus bradycardia; for example, when he had his echocardiogram his heart rate was about 63 beats per minute, so for now, these medications are on hold. 4. Benign prostatic hypertrophy. I do not think he should be taking both doxazosin and tamsulosin because it could be causing his side effects. Right now, finasteride has been restarted, but both alpha blockers at this point in time are on hold. 5. If patient does well overnight, he can go home January 20, 2017, and follow up with Dr. Quintero as an outpatient to discuss medical management further. 6. Thank you very much for the opportunity to evaluate him. HOLLY
[2017-01-20 04:38] VITALS: BP_SYST 125; BP_SYST 136; BP_SYST 149; BP_DIAS 76; BP_DIAS 80; BP_DIAS 90; PULSE 64; RESP 18; O2SAT 97
[2017-01-20] MEDS: Insulin LISPRO 300 Unit/3 mL Inj SUBQ SCH (07:49)
[2017-01-20 09:42] VITALS: PULSE 59
[2017-01-20 09:53] VITALS: BP 116/79; PULSE 63; RESP 18; O2SAT 97
--- NOTE | 2017-01-20 11:05 | PCM.DIMED ---
Discharge Instructions Date of Service Jan 20, 2017 Dates of Hospitalization Jan 18, 2017 at 23:35 Discharge Diagnosis Discharge Diagnosis 1. Acute Syncope. Present on admission Etiology unclear but possibly due to medication side effect. Pulmonary embolism has been ruled out with CT angiogram. 2. History of coronary artery disease post 9 stents in the past Presumed stable. 3. Diabetes mellitus type 2, - Followup pending HgA1C level with primary care provider 4. Nicotine Dependence 5. Chronic pain on narcotics 6. Obesity BMI 41.1 Diet Low fat, Low Sodium, Heart Healthy, Diabetic Activity No restrictions Call your provider Fever or Chills, Shortness of breath, Chest pain, Vomitting, Weakness ( unilateral), Other (syncope) Patient Instructions Seek immediate medical attention if any new or worsening signs or symptoms occur. Follow-up plan 1. Followup with primary care provider in 4-7 days and for consideration of outpatient neurology referral 2. Followup with cardiology (Dr. Jackman) in about [address] [facility] [address] [place] [address] Follow-up Provider: Santiago Funez MD Provider: Najma Jackman MD, Masoud Jan 20, 2017 11:05
[2017-01-20] MEDS ORDERED: ATOR10TA66 PO (11:06)
--- NOTE | 2017-01-20 12:57 | NUR ---
Discharge Pt. discharged to home accompanied by family at 1200 in stable condition. transported to vehicle via w/c. All belonging, instructions and scripts with pt. Educated pt. on new meds and discontinued meds. No questions or concerns at this time. IV and tele dc'd prior to discharge.
--- NOTE | 2017-01-20 14:11 | NUR ---
Social Work-discharge: Data:EMR Reviewed. Pt is on day 2 of hospitalization for chest pain per H&P. Pt is medically stable for discharge. Pt has been up independent in his room. No discharge needs identified. All updated and agreeable to plan. Assessment:Pt who is independent at baseline. Plan:Pt to discharge home today via POV. No discharge needs identified. All updated and agreeable to plan. ANTHONY Matta
--- NOTE | 2017-01-20 19:36 | PCM.DC.MED ---
Discharge Summary Date of Service Jan 20, 2017 Dates of Hospitalization Date of Hospital Admission Jan 18, 2017 at 23:35 Date of Discharge: Jan 20, 2017 Providers: Admitting Physician: Hayden Escamilla MD Primary Care Physician: Santiago Funez MD Attending Physician: Hayden Escamilla MD Diagnosis at Time of Discharge Diagnosis at Time of Discharge 1. Acute Syncope. Present on admission Etiology unclear but possibly due to medication side effect. Pulmonary embolism has been ruled out with CT angiogram. 2. History of coronary artery disease post 9 stents in the past Presumed stable. 3. Diabetes mellitus type 2, - Followup pending HgA1C level with primary care provider 4. Nicotine Dependence 5. Chronic pain on narcotics 6. Obesity BMI 41.1 Procedures XRay, CTs & MRIs CT BRAIN WITHOUT CONTRAST 01/18 IMPRESSION: 1. No hemorrhage or other acute intracranial abnormality. Dictated by: Maikol Jacinto M.D. on 01/18/2017 at 21:59 Approved by: Maikol Jacinto M.D. on 01/18/2017 at 22:01 X-RAY CHEST ONE VIEW, PORTABLE 01/18 IMPRESSION: 1. No acute cardiopulmonary disease. Dictated by: Maikol Jacinto M.D. on 01/18/2017 at 21:37 Approved by: Maikol Jacinto M.D. on 01/18/2017 at 21:38 Date of Service: 01/19/17 0700 PROCEDURE: MRI SEIZURE BRAIN WITH AND WITHOUT CONTRAST ([id number]) IMPRESSION: Normal for age, source of current symptoms is not seen. Dictated by: Mauricio Cruz M.D. on 01/19/2017 at 11:20 Approved by: Mauricio Cruz M.D. on 01/19/2017 at 11:24 Date of Service: 01/18/17 0464 PROCEDURE: CT ANGIO CHEST PULMONARY EMBOLISM ([id number]) IMPRESSION: 1. No acute process. No pulmonary embolus. 2. Coronary artery disease. 3. Concordant with preliminary interpretation. Dictated by: Simba Grullon M.D. on 01/19/2017 at 7:42 Approved by: Simba Grullon M.D. on 01/19/2017 at 7:45 Cardiac Echo Impression Date of Service: 01/19/17 0800 Echocardiogram Report Interpretation Summary Sinus bradycardia; heart rate is 51-55 bpm. Normal LV size. Normal wall thickness; there is basal inferior, mid-inferior and basal inferoseptal hypokinesis. Otherwise normal wall motion. EF is 60- 65%. Stage I diastolic dysfunction. No significant valvular abnormalities. Compared to prior study 11/22/2016 focal wall motion abnormalities are newly appreciated. However, technically study is much better this time versus last time, so [id number] comparison is difficult. Reading Physician:07:30 PM Brief History As noted in H&P by Dr. Escamilla: 46 year old male with Coronary artery disease, type II diabetes mellitus, CHF, stroke, ND, hypertension, frequent ED visits due to angina and multiple cardiac stents presents to the [facility] emergency department via EMS due to a syncopal episode Episode occurred earlier today. Patient reported he came downstairs from the bathroom, felt very dizzy, grabbed the counter, and lost consciousness. He woke up after less then 1 minute of unconsciousness, felt nauseous and began vomiting. He lost bowel control after vomiting, he pooped in his pants. He denies any fever or chills. Currently he denies any dyspnea or chest pain He c/o associated headache and shoulder pain. In the past 2 days, every time he lays down vertically he feels like he's choking and can't breathe. Patient previous episodes of syncope was associated with urinary incontinence as well. Mother reported patient had meningitis as a kid and has seizures requiring seizure medications for about 2 years but has not have them for years. He has been seen here several times since October, most recently seen on for unspecified chest pain. Of note there are documentations of possible drug seeking behavior Hospital Course 1. Acute Syncope. Present on admission Etiology unclear suspect Cardiac causes such as Arrhythmia or Atrial myxoma. Pulmonary embolism has been ruled out with CT angiogram. Non cardiac causes are also investigated such as Orthostatic hypotension. - seen by cardiology consult (Dr. Jackman) with suspicion that patient's presenting symptoms may be at least partially due to over medication (namely, BP meds) - meds adjusted per recommendations by Dr. Jackman (discussed with her on the phone by day of d/c) - seizure was considered as possible etiology but patient would rather go home and does not wish to have EEG done at this time but agrees to f/u w/ PCP for consideration of outpatient neurology referral 2. Coronary artery disease s/p 9 stents, Presumed stable. 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 Multiple admissions for chest pain with negative workup. - EKG showing no ischemic changes - Chest X ray unremarkable, no widening mediastinum - continue antiplatelet and Statin - Dr Jackman consulted. medication adjustment as noted above and detailed below. 3. Diabetes mellitus type 2, - HgA1C pending - further f/u by PCP as outpatient 4 Nicotine Dependence - christian counselor, discussed cessation and encouraged - nicotine patch prn 5. Chronic pain on narcotics Documentations of narcotic seeking behavior was closely monitored - resume home dosing of oral pain medications on discharge 6. Obesity BMI 41.1 Discussed weight loss and exercise coupled with healthy eating by day of d/c lungs CTA bilaterally. Neuro exam non-focal Exam Vital Signs (Last) Date Time Temp Pulse Resp B/P Pulse Ox O2 Delivery O2 Flow Rate FiO2 01/20/17 09:53 36.6 63 18 116/79 97 Room Air 01/18/17 20:44 2 Test 01/18/17 20:37 01/18/17 23:40 01/19/17 06:38 D-Dimer 0.6mg/L (<0.50) Magnesium Level 2.0mg/dL (1.6-2.6) Total Bilirubin 0.4mg/dL (0.0-1.2) Aspartate Amino Transf (AST/SGOT) 21U/L (0-50) Alanine Aminotransferase (ALT/SGPT) 17U/L (0-44) Alkaline Phosphatase 118U/L (25-150) Total Protein 8.1g/dL (6.4-8.4) Albumin 4.0g/dL (3.4-5.0) Thyroid Stimulating Hormone (TSH) 1.070uIU/mL (0.450-4.500) White Blood Count 9.6th/mm3 (3.8-10.1) Red Blood Count 4.58mil/mm3 (4.40-5.80) Hemoglobin 13.5g/dL (13.8-17.2) Hematocrit 39.3% (41.0-50.0) Mean Corpuscular Volume 85.8fL (81-100) Mean Corpuscular Hemoglobin 29.5pg (27.0-35.0) Mean Corpuscular Hemoglobin Concent 34.4% (32.0-37.0) Red Cell Distribution Width 12.7% (12.3-15.4) Platelet Count 175bil/L (150-400) Neutrophils (%) (Auto) 57.1% (40-74) Lymphocytes (%) (Auto) 34.2% (14-46) Monocytes (%) (Auto) 5.6% (4-12) Eosinophils (%) (Auto) 2.4% (0-5) Basophils (%) (Auto) 0.5% (0-3) Sodium Level 136mEq/L (134-144) Potassium Level 3.8mEq/L (3.5-5.2) Chloride Level 99mEq/L (97-108) Carbon Dioxide Level 21mmol/L (18-29) Blood Urea Nitrogen 20mg/dL (6-24) Creatinine 0.98mg/dL (0.76-1.27) Estimat Glomerular Filtration Rate 87mL/min (>59) Glucose Level 272mg/dL (60-99) Calcium Level 8.9mg/dL (8.5-10.1) Total Creatine Kinase 71U/L (21-232) Creatine Kinase MB 1.0ng/mL (0.0-10.4) Creatine Kinase MB % % (0.0-5.0) Troponin T 0.010ug/L (0.0-0.011) Triglycerides Level 246mg/dL (0-149) Cholesterol Level 120mg/dL (100-199) LDL Cholesterol, Calculated 33.800mg/dL (0-99) VLDL Cholesterol 49.200mg/dL HDL Cholesterol 37mg/dL (>39) Cholesterol/HDL Ratio 3.24 (0.0-4.4) Discharge Medications Discharge Medications Aspirin (Aspirin) 81 Mg Tablet 81 MG PO DAILY (Reported) Atorvastatin Calcium (Atorvastatin Calcium) 10 Mg Tablet 10 MG PO HS Prescribed by: RHIANNA CARPENTER MD Clopidogrel (Clopidogrel) 75 Mg Tablet 75 MG PO DAILY (Reported) Finasteride (Finasteride) 5 Mg Tablet 10 MG PO DAILY (Reported) Gabapentin (Gabapentin) 300 Mg Capsule 1,200 MG PO BID (Reported) Insulin Glargine (Lantus U100 Insulin Vial) 100 Unit/Ml Vial 100 UNIT SUBQ BID ( Reported) Insulin Regular, Human (HUMulin-R U100 Insulin Vial) 100 Unit/1 Ml Vial 80 UNIT SUBQ BIDAC (Reported) Pantoprazole DR (Pantoprazole DR) 20 Mg Tablet.dr 20 MG PO DAILY (Reported) Prasugrel HCl (Effient) 10 Mg Tablet 10 MG PO DAILY (Reported) Tamsulosin ER (Tamsulosin ER) 0.4 Mg Cap.er.24h BID (Reported) As needed Albuterol HFA (Proair HFA) 8.5 Gm Hfa.aer.ad 2 PUFFS INHALATION QID PRN PRN For Shortness of Breath (Reported) Loperamide (Loperamide) 2 Mg Capsule 2-4 MG PO TID PRN PRN For Diarrhea or Loose Stool (Reported) Nitroglycerin SL (Nitroglycerin SL) 0.4 Mg Tab.subl 0.4 MG SL Q5MIN PRN PRN For Chest Pain (Reported) Oxycodone HCl/Acetaminophen (Endocet 10-325 mg Tablet) 1 Each Tablet 1 EACH PO QID PRN PRN For Pain (Reported) Followup Plan Disposition: home Follow-up plan 1. Followup with primary care provider in 4-7 days and for consideration of outpatient neurology referral 2. Followup with cardiology (Dr. Jackman) in about 2 weeks. [facility] [address], [facility] [address] [place] [address] Discharge Diet: Low fat, Low Sodium, Heart Healthy, Diabetic Discharge Activity: No restrictions Patient Instructions Seek immediate medical attention if any new or worsening signs or symptoms occur. Follow-up Provider: Santiago Funez MD Provider: Najma Jackman MD Time spent 35 min copies to: Santiago Funez MD; Najma Jackman MD, Masoud Jan 20, 2017 19:35
[2017-01-20] MEDS ORDERED: PROM25SU8 RC ×2 (22:25→22:32)
[2017-01-20] MEDS ORDERED: ONDA8TAB10 PO ×2 (22:25→22:32)
--- NOTE | 2017-01-21 00:16 | PROG NOTE ---
[address] [address] PROGRESS NOTE PATIENT: KAJAL TELLO : 1970 MR#: [id number] ADMIT: 01/18/2017 JOB ID: [id number] DATE: 01/20/2017 CHIEF COMPLAINT: Chest pain and dizziness. SUBJECTIVE: Patient is doing well this morning. He says he is ready to be discharged. He has no complaints. OBJECTIVE: Vital signs reviewed. Temperature is 36.6. Blood pressure 116/79, up to 149/90. Pulse 59, up to 64. Satting 95% to 97% on room air. Well-nourished man, no apparent distress. Eyes: No scleral icterus. Heart: Normal S1, S2. No murmurs. Lungs: Clear to auscultation. The abdomen is soft, positive bowel sounds. No hepatosplenomegaly. Extremities: Warm, well perfused. No clubbing, cyanosis, or edema. Skin: No rashes or lesions. LABORATORIES: Were reviewed. Labs from January 19 were reassuring. ASSESSMENT AND PLAN: This is a 46-year-old man with multivessel percutaneous coronary intervention, most recently in March 2016. I recommend dual antiplatelet therapy at least until March 2017. Stop simvastatin. Start high-intensity statin, Lipitor. Stop lisinopril, metoprolol and isosorbide mononitrate due to dizziness. Stop doxazosin due to dizziness. Continue tamsulosin and finasteride. I recommend for him to follow up with me as an outpatient. Thank you very much for the opportunity to evaluate him.
== END 2017-01-20 12:13 | disposition home or self-care (01) ==
LOC: SED 20:35 → MPC 23:35
PROVIDERS: ADMIT Hospitalist; ATTEND Hospitalist
DX: R55 Syncope and collapse (principal); I25.10 Atherosclerotic heart disease of native coronary artery without angina pectoris; Z95.5 Presence of coronary angioplasty implant and graft; E11.40 Type 2 diabetes mellitus with diabetic neuropathy, unspecified; G89.4 Chronic pain syndrome; E66.9 Obesity, unspecified; I50.9 Heart failure, unspecified; I11.0 Hypertensive heart disease with heart failure; Z86.73 Personal history of transient ischemic attack (TIA), and cerebral infarction without residual deficits; N40.0 Benign prostatic hyperplasia without lower urinary tract symptoms; F32.9 Major depressive disorder, single episode, unspecified; E78.5 Hyperlipidemia, unspecified; K21.9 Gastro-esophageal reflux disease without esophagitis; G43.909 Migraine, unspecified, not intractable, without status migrainosus; M54.5 Low back pain; F11.90 Opioid use, unspecified, uncomplicated; F17.210 Nicotine dependence, cigarettes, uncomplicated; Z86.718 Personal history of other venous thrombosis and embolism; Z87.442 Personal history of urinary calculi; Z68.41 Body mass index [BMI] 40.0-44.9, adult; Z79.4 Long term (current) use of insulin; Z79.82 Long term (current) use of aspirin; Z79.51 Long term (current) use of inhaled steroids
CPT/HCPCS: 36415; 70450; 70553; 71010; 71275; 73030; 80048; 80053; 80061; 82550; 82553; 83036; 83735; 84443; 84484; 85025; 85379; 93005; 96374; 96375; 99285; A9585; C8929; G0378; J1644; J1815; J1885; J2405; J7030; Q9957; Q9967

== ENCOUNTER 2017-01-20 19:45 | Emergency (ER) | payer OTHER ==
[~2017-01-20] VITALS: Ht 172.7 cm; Wt 124.0 kg
[~2017-01-20 19:45] MED LIST changes: +ATOR10TA66 PO
[2017-01-20 19:51] VITALS: BP 124/92; PULSE 89; RESP 17; O2SAT 96
[2017-01-20 20:28] LABS: BASOPHILS % (AUTO) 0.4 % (0-3); EOSINOPHILS % (AUTO) 1.7 % (0-5); MONOCYTES % (AUTO) 5.3 % (4-12); Mean Corpuscular Hemoglobin 29.6 pg (27.0-35.0); Mean Corpuscular Volume 87.3 fL (81-100); NEUTROPHILS % (AUTO) 71.4 % (40-74); Platelet Count 211 bil/L (150-400)
[2017-01-20 20:57] LABS: TROPONIN T < 0.010 ug/L (0.0-0.011)
--- NOTE | 2017-01-20 21:00 | DRSVH ---
PROCEDURE: X-RAY CHEST ONE VIEW, PORTABLE ([id number]) INDICATIONS: CHEST PAIN TECHNIQUE: One view of the chest was acquired. COMPARISON: [facility], CR, XR CHEST 1VW (PORTABLE), 01/18/2017, 20:39. FINDINGS: Surgical changes and devices: None. Lungs and pleura: No pleural effusions or pneumothorax. Lungs are clear. Mediastinum: Mediastinal contours appear normal. Heart size is normal. Bones and chest wall: No suspicious bony lesions. Overlying soft tissues appear unremarkable. IMPRESSION: No acute pulmonary process. Dictated by: China Anderson M.D. on 01/20/2017 at 20:57 Approved by: China Anderson M.D. on 01/20/2017 at 20:59
[2017-01-20 21:03] LABS: Magnesium 2.1 mg/dL (1.6-2.6)
[2017-01-20 21:16] VITALS: BP 138/70; PULSE 75; RESP 19; O2SAT 97
--- NOTE | 2017-01-20 21:36 | ED.REPORT ---
HPI-General Illness Date of Service Jan 20, 2017 ED Provider: Anton Ramirez MD 46 year old male with a history of CAD with extensive stent placement, [place], CHF, COPD, and HTN presents to the ER accompanied by two female companions complaining of recurrent severe chest pain. Patient was released from the hospital earlier today and states that he continued to have chest pain, headache , nausea, and vomiting upon returning home. Associated symptom of urinary retention since discharge from the hospital today, and states he was not given his Flomax for the past few days, while in the hospital.. He denies fever, and chills. Currently he is willing to be discharged home after his nausea and vomiting is controlled. He does not have any nausea medicines at home. Nursing Notes Stated Complaint: VOMITING/CHEST PAIN Chief Complaint: Chest Pain Nursing Notes Reviewed: Yes Allergies: Coded Allergies: Honey Bee (Verified Allergy, Severe, anaphylaxis, 01/20/17) Penicillins (Verified Allergy, Intermediate, itching, and hives, 01/20/17) sumatriptan (Verified Allergy, Intermediate, Shakes and burning, 01/20/17) TAPE (Verified Allergy, Mild, blisters, 01/20/17) hydromorphone (Verified Adverse Reaction, Intermediate, very drowsy and nauseated, 01/20/17) Scheduled Aspirin (Aspirin) 81 Mg Tablet 81 MG PO DAILY Atorvastatin Calcium (Atorvastatin Calcium) 10 Mg Tablet 10 MG PO HS Clopidogrel (Clopidogrel) 75 Mg Tablet 75 MG PO DAILY Finasteride (Finasteride) 5 Mg Tablet 10 MG PO DAILY Gabapentin (Gabapentin) 300 Mg Capsule 1,200 MG PO BID Insulin Glargine (Lantus U100 Insulin Vial) 100 Unit/Ml Vial 100 UNIT SUBQ BID Insulin Regular, Human (HUMulin-R U100 Insulin Vial) 100 Unit/1 Ml Vial 80 UNIT SUBQ BIDAC Pantoprazole DR (Pantoprazole DR) 20 Mg Tablet.dr 20 MG PO DAILY Prasugrel HCl (Effient) 10 Mg Tablet 10 MG PO DAILY Tamsulosin ER (Tamsulosin ER) 0.4 Mg Cap.er.24h BID Scheduled PRN Albuterol HFA (Proair HFA) 8.5 Gm Hfa.aer.ad 2 PUFFS INHALATION QID PRN PRN For Shortness of Breath Loperamide (Loperamide) 2 Mg Capsule 2-4 MG PO TID PRN PRN For Diarrhea or Loose Stool Nitroglycerin SL (Nitroglycerin SL) 0.4 Mg Tab.subl 0.4 MG SL Q5MIN PRN PRN For Chest Pain Ondansetron ODT (Ondansetron ODT) 8 Mg Tab.rapdis 8 MG PO QID PRN PRN For Nausea Oxycodone HCl/Acetaminophen (Endocet 10-325 mg Tablet) 1 Each Tablet 1 EACH PO QID PRN PRN For Pain Promethazine HCl (Phenadoz) 25 Mg Supp.rect 25 MG RC TID PRN PRN For Nausea General Time Seen by MD: 21:33 Chief Complaint Chest pain Hx Obtained From: Patient Arrived By: Walk-in Sudden in Onset?: No Onset Occurred: 1 - 4 hours ago Symptom Duration: Since onset Associated with: Reports: Headache, Nausea, Vomiting, Denies: Fever Pertinent Negative: Pt denies other symptoms Context Related History: Reports Coronary artery disease Recent Healthcare: Recent doctor visit, Recent hospitalization Similar Sx Previous: Yes Past Medical History Past Medical History Notes: Patient states has had "nine stents" placed at [facility] For CP 08/01/2016, 08/04/16, and 08/26/16 Multiple ED visits for CP, admitted for chest pain 11/21/2016 with hospitalist diagnosis of narcotic seeking behavior Echocardiogram November 15-EF 60-65%, no focal wall motion Seen in the ED 01/14/2017 for chest pain abnormalities, no significant valvular disease Past Medical History CAD - multiple stents, cardiac caths 02/14, 03/12, 04/11, ad 04/17 w/stent placed to proximal LAD overlapping prior stent and "plavix non-responder" Syncope Type two diabetes with neuropathy Chronic back and leg pain Lower extremity DVT "years ago" per patient, details unclear History of migraines BPH Kidney Stones On Warfarin and Plavix HTN [place] 2014 Concern for TIA October 2016, MRI/MRA negative Reports: COPD, Congestive heart failure, Stroke Reports: Heroin use Past Surgical History Shoulder surgery (joint replacement) Left knee surgery Ganglion cyst in right hand Cardiac stents ("x9" - at [facility]) Reports: Cholecystectomy Family History Both of the patient's parents are still alive Smoking History Current Every Day Smoker Social History Alcohol Use: Denies alcohol use Drug Use: Denies drug use Other Social History: Good social support, , Local resident 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 Physical Exam Vital Signs Vital Signs Date Time Temp Pulse Resp B/P Pulse Ox O2 Delivery O2 Flow Rate FiO2 01/20/17 21:16 36.4 75 19 138/70 97 Room Air 01/20/17 19:51 37.7 89 17 124/92 96 Room Air Initial VS: Reviewed Head / Eyes: Atraumatic, Normocephalic Neck: Supple, Non-tender, Full range of motion Abdomen / GI: Soft, Non-tender, No guarding, No rebound, No distention Extremities: Vascular intact, Neuro intact, No swelling, No tenderness Skin: Warm, Dry, No cyanosis Neurologic: Alert, Oriented, Nonfocal General/Constitutional: Awake, Alert, Well developed, Well hydrated Appearance / Presentation: Positive: Obese Respiratory / Chest: Breath sounds NL, No respiratory distress, No rales, No rhonchi, No wheezing Cardiovascular: Heart rate NL, Regular rhythm, Heart sounds NL, Cap refill not delayed, Peripheral circulation NL Interpretation & Diagnostics Lab Results Interpretation Result Diagram: 01/20/17 2017 01/20/17 2017 Test 01/20/17 20:17 White Blood Count 9.5th/mm3 (3.8-10.1) Red Blood Count 5.04mil/mm3 (4.40-5.80) Hemoglobin 14.9g/dL (13.8-17.2) Hematocrit 44.0% (41.0-50.0) Mean Corpuscular Volume 87.3fL (81-100) Mean Corpuscular Hemoglobin 29.6pg (27.0-35.0) Mean Corpuscular Hemoglobin Concent 33.9% (32.0-37.0) Red Cell Distribution Width 12.9% (12.3-15.4) Platelet Count 211bil/L (150-400) Neutrophils (%) (Auto) 71.4% (40-74) Lymphocytes (%) (Auto) 21.1% (14-46) Monocytes (%) (Auto) 5.3% (4-12) Eosinophils (%) (Auto) 1.7% (0-5) Basophils (%) (Auto) 0.4% (0-3) Sodium Level 134mEq/L (134-144) Potassium Level 3.9mEq/L (3.5-5.2) Chloride Level 96mEq/L (97-108) Carbon Dioxide Level 19mmol/L (18-29) Blood Urea Nitrogen 15mg/dL (6-24) Creatinine 0.72mg/dL (0.76-1.27) Estimat Glomerular Filtration Rate 124mL/min (>59) Glucose Level 357mg/dL (60-99) Calcium Level 9.6mg/dL (8.5-10.1) Magnesium Level 2.1mg/dL (1.6-2.6) Total Bilirubin 0.5mg/dL (0.0-1.2) Aspartate Amino Transf (AST/SGOT) 17U/L (0-50) Alanine Aminotransferase (ALT/SGPT) 15U/L (0-44) Alkaline Phosphatase 115U/L (25-150) Troponin T < 0.010ug/L (0.0-0.011) Total Protein 7.7g/dL (6.4-8.4) Albumin 3.7g/dL (3.4-5.0) Hold Pereyra Top Tube Received (Received) ECG Interpretation ECG Interpretation: Sinus rhythm, rate 86 Low voltage Time: 21:37 Interpreted by: ED physician X-Ray Chest Interpretation Chest Xray Interpretation: IMPRESSION: No acute pulmonary process. Dictated by: China Anderson M.D. on 01/20/2017 at 20:57 Approved by: China Anderson M.D. on 01/20/2017 at 20:59 View: Portable, 1 view Interpretation / Wet Read by: Interpret - Radiologist Re-Eval/Medical Decision Med Decision/Clinical Course 46-year-old chronic baseline constant chest pain, presents just after discharge today. His actual reason for seeking help seems to be more the nausea and vomiting which is not well controlled. His chest pain is basically a constant feature of life and he remains concerned about it, but with no particular intervention planned, he understands that additional hospital evaluation is not indicated. I have provided him with his Flomax dose. He declined to remain long enough for a bladder scan. I had provided prescriptions for Zofran and Phenergan, but he departed before they were given to him. These were transmitted to his pharmacy. He will be contacted in the morning to advise him of that. Source of Hx: Old records Time of Eval: 21:47 Re-Evaluation/Progress Note: Discussed lab and radiology results and plan to discharge. Patient is amenable to the plan. Return precautions given. All other questions addressed. Counseled Regarding: Diagnosis, Lab results, Need for follow-up, When/why to return to ED Discharge & Departure Primary Impression: Nausea and vomiting Vomiting type: unspecified Vomiting Intractability: non-intractable Qualified Code: R11.2 - Nausea with vomiting, unspecified Additional Impressions: BPH (benign prostatic hyperplasia) Prostatic enlargement morphology: unspecified morphology Lower urinary tract symptom presence: symptoms present Qualified Code: N40.1 - Enlarged prostate with lower urinary tract symptoms Urinary hesitancy Opioid dependence Substance use status: with opioid-induced mood disorder Qualified Code: F11.24 - Opioid dependence with opioid-induced mood disorder Chronic chest pain Disposition: Home Discharge Condition All VS Reviewed: Yes Condition: Stable Patient Instructions: Acute Nausea and Vomiting (DC) Additional Instructions: Begin with Zofran up to four times daily if needed for nausea. He may then use Phenergan as a suppository if still having nausea Follow-up with your doctor in the office Continue your current prescribed medicines Return if any new issues. Referrals: Santiago Funez MD (PCP) Cindy Attestation Portions of this note were transcribed by Cheko Hernadez. I, Dr. Ramirez, personally performed the history, physical exam and medical decision-making; I reviewed and confirmed the accuracy of the information in the transcribed note. Signed by: Cindy Matias. 01/20/2017 - 22:27 copies to: Santiago Funez MD, Christopher W MD Jan 20, 2017 21:36 CHEKO HERNADEZ Jan 20, 2017 21:43
[2017-01-20] MEDS ORDERED: Ondansetron 8 mg ODT Tablet PO PRN (21:45)
[2017-01-20] MEDS ORDERED: ONDA8TAB10 PO ×2 (22:25→22:32)
[2017-01-20] MEDS ORDERED: PROM25SU8 RC ×2 (22:25→22:32)
== END 2017-01-20 22:37 | disposition left against medical advice (07) ==
LOC: SED 19:45
DX: R11.2 Nausea with vomiting, unspecified (principal); N40.1 Benign prostatic hyperplasia with lower urinary tract symptoms; R39.11 Hesitancy of micturition; F11.24 Opioid dependence with opioid-induced mood disorder; R07.89 Other chest pain; I25.10 Atherosclerotic heart disease of native coronary artery without angina pectoris; I25.2 Old myocardial infarction; I50.9 Heart failure, unspecified; J44.9 Chronic obstructive pulmonary disease, unspecified; I10 Essential (primary) hypertension; E11.40 Type 2 diabetes mellitus with diabetic neuropathy, unspecified; F17.200 Nicotine dependence, unspecified, uncomplicated; Z86.73 Personal history of transient ischemic attack (TIA), and cerebral infarction without residual deficits; Z87.442 Personal history of urinary calculi; Z79.01 Long term (current) use of anticoagulants; Z95.5 Presence of coronary angioplasty implant and graft; Z88.0 Allergy status to penicillin; Z79.82 Long term (current) use of aspirin; Z79.4 Long term (current) use of insulin; Z88.8 Allergy status to other drugs, medicaments and biological substances

== ENCOUNTER 2017-03-17 18:13 | Emergency (ER) | payer OTHER ==
[~2017-03-17] VITALS: Ht 172.7 cm; Wt 122.7 kg
[~2017-03-17 18:13] MED LIST changes: -ATOR80TA PO; -DOXA4TAB3 PO; -FURO40TA4 PO; -ISOS60TA2 PO; -LISI2.5T PO; -METO25TA99 PO; +ONDA8TAB10 PO; -POTA20TA16 PO; +PROM25SU8 RC
[2017-03-17 18:19] VITALS: BP 127/74; PULSE 97; RESP 20; O2SAT 95
--- NOTE | 2017-03-17 18:35 | ED.REPORT ---
HPI-Chest Pain 40 and Over Date of Service March 17, 2017 ED Provider: Dr. Héctor De Santiago MD A 46 year old male with history of CAD, type II diabetes mellitus, CHF, stroke, [place], hypertension, frequent ED visits due to angina and multiple cardiac stents presents to the ED complaining of chest pain that began yesterday. Patient returns today with similar symptoms to his previous ED visits. Associated symptoms include headache, heart palpitations and near-syncopal episode secondary to dizziness. The chest pain is exacerbated by movement and relieved when lying supine. His chest pain is often associated with the headache and has become increasingly worse since onset. The headache is similar to his chronic headaches. Patient took 1 Nitro prior to arrival. He has been taking medication as directed. Nursing Notes Stated Complaint: CHEST PAIN,HEADACHE Chief Complaint: Chest Pain Nursing Notes Reviewed: Yes Allergies: Coded Allergies: Honey Bee (Verified Allergy, Severe, anaphylaxis, 01/20/17) Penicillins (Verified Allergy, Intermediate, itching, and hives, 01/20/17) sumatriptan (Verified Allergy, Intermediate, Shakes and burning, 01/20/17) TAPE (Verified Allergy, Mild, blisters, 01/20/17) hydromorphone (Verified Adverse Reaction, Intermediate, very drowsy and nauseated, 01/20/17) Scheduled Aspirin (Aspirin) 81 Mg Tablet 81 MG PO DAILY Atorvastatin Calcium (Atorvastatin Calcium) 10 Mg Tablet 10 MG PO HS Clopidogrel (Clopidogrel) 75 Mg Tablet 75 MG PO DAILY Finasteride (Finasteride) 5 Mg Tablet 10 MG PO DAILY Gabapentin (Gabapentin) 300 Mg Capsule 1,200 MG PO BID Insulin Glargine (Lantus U100 Insulin Vial) 100 Unit/Ml Vial 100 UNIT SUBQ BID Insulin Regular, Human (HUMulin-R U100 Insulin Vial) 100 Unit/1 Ml Vial 80 UNIT SUBQ BIDAC Pantoprazole DR (Pantoprazole DR) 20 Mg Tablet.dr 20 MG PO DAILY Prasugrel HCl (Effient) 10 Mg Tablet 10 MG PO DAILY Tamsulosin ER (Tamsulosin ER) 0.4 Mg Cap.er.24h BID Scheduled PRN Albuterol HFA (Proair HFA) 8.5 Gm Hfa.aer.ad 2 PUFFS INHALATION QID PRN PRN For Shortness of Breath Loperamide (Loperamide) 2 Mg Capsule 2-4 MG PO TID PRN PRN For Diarrhea or Loose Stool Nitroglycerin SL (Nitroglycerin SL) 0.4 Mg Tab.subl 0.4 MG SL Q5MIN PRN PRN For Chest Pain Ondansetron ODT (Ondansetron ODT) 8 Mg Tab.rapdis 8 MG PO QID PRN PRN For Nausea Oxycodone HCl/Acetaminophen (Endocet 10-325 mg Tablet) 1 Each Tablet 1 EACH PO QID PRN PRN For Pain Promethazine HCl (Phenadoz) 25 Mg Supp.rect 25 MG RC TID PRN PRN For Nausea General Time Seen by MD: 18:34 Chief Complaint Chest pain Hx Obtained From: Patient Arrived By: Walk-in Sudden in Onset?: No Onset Occurred: Yesterday Symptom Duration: Since onset Location: : Chest left: Chest right Radiation: : Does not radiate Migration/Movement: Reports: None Severity: Current: Mild Severity: Maximum: Moderate Associated with: Reports: Dizziness Pertinent Negative: Pt denies other symptoms Exacerbated by: Movement Relieved by: Supine Recent Healthcare: No recent doctor visit, No recent hospitalization Risk Factors )( CAD Risk Stratification Hypertension Known CAD Risk factors reviewed )( TAD Risk Stratification Hypertension Risk factors reviewed )( PE Risk Stratification Risk factors reviewed Past Medical History Past Medical History Notes: Patient states has had "nine stents" placed at [facility] For CP 08/01/2016, 08/04/16, and 08/26/16 Multiple ED visits for CP, admitted for chest pain 11/21/2016 with hospitalist diagnosis of narcotic seeking behavior Echocardiogram November 15-EF 60-65%, no focal wall motion Seen in the ED 01/14/2017 for chest pain abnormalities, no significant valvular disease Past Medical History CAD - multiple stents, cardiac caths 02/14, 03/12, 04/11, ad 04/17 w/stent placed to proximal LAD overlapping prior stent and "plavix non-responder" Syncope Type two diabetes with neuropathy Chronic back and leg pain Lower extremity DVT "years ago" per patient, details unclear History of migraines BPH Kidney Stones On Warfarin and Plavix HTN [place] 2014 Concern for TIA October 2016, MRI/MRA negative Reports: COPD, Congestive heart failure, Stroke Reports: Heroin use Past Surgical History Shoulder surgery (joint replacement) Left knee surgery Ganglion cyst in right hand Cardiac stents ("x9" - at [facility]) Reports: Cholecystectomy Family History Both of the patient's parents are still alive Smoking History Current Every Day Smoker Social History Alcohol Use: Denies alcohol use Drug Use: Denies drug use Other Social History: Good social support, , Local resident 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 Physical Exam Initial Vital Signs Vital Signs (First) Date Time Temp Pulse Resp B/P Pulse Ox O2 Delivery O2 Flow Rate FiO2 03/17/17 18:19 36.2 97 20 127/74 95 Room Air Initial VS: Reviewed Head / Eyes: Atraumatic, Normocephalic, PERRL Neck: Supple, Non-tender, Full range of motion Extremities: Vascular intact, Neuro intact, No swelling, No tenderness Skin: Warm, Dry, No cyanosis Neurologic: Alert, Oriented, Nonfocal Psychiatric: Mood/affect normal, Behavior normal, Normal thought content General/Constitutional: Awake, Alert Distress / Hydration: Positive: Distress mild Behavior: Positive: Anxious Appearance / Presentation: Positive: Obese Respiratory / Chest: Atraumatic, Breath sounds NL, Breath sounds = bilat, No respiratory distress Cardiovascular: Heart rate NL, Regular rhythm, Heart sounds NL, Peripheral circulation NL, Pulses = bilaterally Abdomen: Atraumatic, Soft, Non-tender Interpretation & Diagnostics Lab Results Interpretation Result Diagram: 03/17/170 03/17/17 1840 Test 03/17/17 18:40 03/17/17 20:04 White Blood Count 11.1th/mm3 (3.8-10.1) Red Blood Count 4.64mil/mm3 (4.40-5.80) Hemoglobin 14.0g/dL (13.8-17.2) Hematocrit 40.1% (41.0-50.0) Mean Corpuscular Volume 86.4fL (81-100) Mean Corpuscular Hemoglobin 30.2pg (27.0-35.0) Mean Corpuscular Hemoglobin Concent 34.9% (32.0-37.0) Red Cell Distribution Width 13.7% (12.3-15.4) Platelet Count 226bil/L (150-400) Neutrophils (%) (Auto) 65.7% (40-74) Lymphocytes (%) (Auto) 25.5% (14-46) Monocytes (%) (Auto) 6.9% (4-12) Eosinophils (%) (Auto) 1.3% (0-5) Basophils (%) (Auto) 0.4% (0-3) D-Dimer 0.50mg/L FEU (<0.50) Sodium Level 133mEq/L (134-144) Potassium Level 3.8mEq/L (3.5-5.2) Chloride Level 96mEq/L (97-108) Carbon Dioxide Level 19mmol/L (18-29) Blood Urea Nitrogen 19mg/dL (6-24) Creatinine 1.05mg/dL (0.76-1.27) Estimat Glomerular Filtration Rate 80mL/min (>59) Glucose Level 387mg/dL (60-99) Calcium Level 9.4mg/dL (8.5-10.1) Magnesium Level 1.9mg/dL (1.6-2.6) Total Bilirubin 0.3mg/dL (0.0-1.2) Aspartate Amino Transf (AST/SGOT) 17U/L (0-50) Alanine Aminotransferase (ALT/SGPT) 16U/L (0-44) Alkaline Phosphatase 117U/L (25-150) Pro-B-Type Natriuretic Peptide 87.11pg/mL (0-121) Total Protein 7.7g/dL (6.4-8.4) Albumin 3.8g/dL (3.4-5.0) Hold Pereyra Top Tube Received (Received) Troponin T < 0.010ug/L (0.0-0.011) ECG Interpretation ECG Interpretation: Sinus Rhythm Rate 89 Time: 18:28 Interpreted by: ED physician Normal ECG Interpretation: No change from prior ECGs (01/20/17) X-Ray Chest Interpretation Chest Xray Interpretation: IMPRESSION: No acute process. Dictated by: Simba Grullon M.D. on 03/17/2017 at 19:22 Interpretation / Wet Read by: Interpret - Radiologist Re-Eval/Medical Decision Med Decision/Clinical Course No acute medical condition is identified. The headaches have been present for a long time and do not represent subarachnoid hemorrhage, it does not seem that this is acute coronary syndrome or pulmonary embolism or aortic dissection. Patient had admission with an extensive hospital workup a few months ago. We will plan to discharge the patient and have him follow-up with his credit review analyst. Return and follow-up precautions given. Time of Eval: 19:39 Patient Status: Condition improved Re-Evaluation/Progress Note: Symptoms have improved but mild headache is still present. This headache is simialr to his chronic headaches. Patient reports recent stress and depression but denies any SI. He is informed of his lab results and diagnosis. All questions are addressed. He understands and agrees with the intended treatment plan to obtain a second troponin adn discharge. Time of Eval: 20:53 Re-Evaluation/Progress Note: Second trop is negative and his symptoms have improved. Counseled Regarding: Diagnosis, Lab results, Need for follow-up, When/why to return to ED Discharge & Departure Primary Impression: Chest pain Chest pain type: unspecified Qualified Code: R07.9 - Chest pain, unspecified Disposition: Home Discharge Condition All VS Reviewed: Yes Condition: Improved Patient Instructions: Chest Pain (ED) Additional Instructions: Thank you for trusting us with your care this afternoon. Your emergency department evaluation today including lab work, EKG and chest X- ray are reassuring that you are not experiencing any acute illnesses such as a heart attack, however a clear cause of your symptoms was not identified so I recommend you call you credit review analyst tomorrow to schedule a follow up appointment. I also recommend that you schedule a follow-up appointment with your primary care physician in the next week. Please return to the emergency department if you begin to experience any new or worsening symptoms including any shortness of breath, worsening chest pain, or thoughts of harming yourself or others. Referrals: Santiago Funez MD (PCP) Alizaibrudolph Attestation Portions of this note were transcribed by Perla Walker. I, Dr. De Santiago personally performed the history, physical exam and medical decision-making; I reviewed and confirmed the accuracy of the information in the transcribed note. Signed by: Cindy Ford, 03/17/17 [phone]. copies to: Santiago Funez MDHéctor John March 17, 2017 18:34 PERLA WALKER March 17, 2017 18:39
[2017-03-17] MEDS ORDERED: Ondansetron 2 mg/mL 2 mL Inj IVPUSH PRN (18:45)
[2017-03-17 18:47] LABS: BASOPHILS % (AUTO) 0.4 % (0-3); EOSINOPHILS % (AUTO) 1.3 % (0-5); MONOCYTES % (AUTO) 6.9 % (4-12); Mean Corpuscular Hemoglobin 30.2 pg (27.0-35.0); Mean Corpuscular Volume 86.4 fL (81-100); NEUTROPHILS % (AUTO) 65.7 % (40-74); Platelet Count 226 bil/L (150-400)
[2017-03-17 19:10] LABS: Magnesium 1.9 mg/dL (1.6-2.6)
[2017-03-17 19:18] LABS: TROPONIN T < 0.010 ug/L (0.0-0.011)
[2017-03-17] MEDS ORDERED: 0.9% Sodium Chloride 500 ML IV ONE (19:25)
--- NOTE | 2017-03-17 19:25 | DRSVH ---
PROCEDURE: X-RAY CHEST ONE VIEW, PORTABLE ([id number]) INDICATIONS: CHEST PAIN TECHNIQUE: One view of the chest was acquired. COMPARISON: [facility], CR, XR CHEST 1VW (PORTABLE), 01/20/2017, 20:48. FINDINGS: Surgical changes and devices: None. Lungs and pleura: No pleural effusions or pneumothorax. Lungs are clear. Mediastinum: Mediastinal contours appear normal. Heart size is normal. Bones and chest wall: No suspicious bony lesions. Overlying soft tissues appear unremarkable. IMPRESSION: No acute process. Dictated by: Simba Grullon M.D. on 03/17/2017 at 19:22 Approved by: Simba Grullon M.D. on 03/17/2017 at 19:23
[2017-03-17] MEDS ORDERED: ProchlorPERazine 5 mg/mL 2 mL Inj IVPUSH ONE (19:45)
[2017-03-17] MEDS ORDERED: Insulin GLARgine 100 Unit/mL Syringe SUBQ ONE (19:45)
[2017-03-17] MEDS ORDERED: Insulin Human REGular 300 Unit/3 mL Inj SUBQ SCH (19:45)
[2017-03-17 21:05] VITALS: BP 104/89; PULSE 78; RESP 15; O2SAT 96
== END 2017-03-17 20:55 | disposition home or self-care (01) ==
LOC: SED 18:13
DX: R07.9 Chest pain, unspecified (principal); R51 Headache; R00.2 Palpitations; R55 Syncope and collapse; R42 Dizziness and giddiness; I11.0 Hypertensive heart disease with heart failure; E11.59 Type 2 diabetes mellitus with other circulatory complications; I50.9 Heart failure, unspecified; I25.10 Atherosclerotic heart disease of native coronary artery without angina pectoris; I25.2 Old myocardial infarction; J44.9 Chronic obstructive pulmonary disease, unspecified; E11.49 Type 2 diabetes mellitus with other diabetic neurological complication; F17.200 Nicotine dependence, unspecified, uncomplicated; Z86.73 Personal history of transient ischemic attack (TIA), and cerebral infarction without residual deficits; Z95.5 Presence of coronary angioplasty implant and graft; Z79.82 Long term (current) use of aspirin; Z79.4 Long term (current) use of insulin; Z88.0 Allergy status to penicillin; Z88.5 Allergy status to narcotic agent; Z88.8 Allergy status to other drugs, medicaments and biological substances; Z91.030 Bee allergy status; Z91.048 Other nonmedicinal substance allergy status
CPT/HCPCS: 36415; 71010; 80053; 83735; 83880; 84484; 85025; 85378; 90791; 93005; 96361; 96372; 96374; 96375; 99285; J0780; J1200; J1815; J7040

== ENCOUNTER 2017-03-22 11:35 | Observation (INO) | payer OTHER ==
[~2017-03-22] VITALS: Ht 172.7 cm; Wt 126.2 kg
[2017-03-22] VITALS (7 sets, daily range): BP systolic 104–141; BP diastolic 49–82; PULSE 56–80; RESP 16–19; O2SAT 94–99
--- NOTE | 2017-03-22 12:06 | ED.REPORT ---
HPI-General Illness Date of Service March 22, 2017 ED Provider: Quincy Meyer MD Patient is a 47 year old male with history of CAD, DM and prior stroke presented to [facility] ED accompanied by his family complaining of syncope followed by right leg weakness and left hand and face numbness onset earlier this morning. Patient repots waking up at 4 am not feeling well, having some nausea and vomiting. He went outside to smoke, felt better and went back home. When he went outside to smoke the second time, he got lightheaded and dizzy. Patient reports he fell on he grass and lost his consciousness. He does not know for how long he was out. When he regained his consciousness, he reports severe headache. He went home and fell asleep for a while. When he woke up he noticed left sided numbness in his left hand and face and right leg weakness. Patient reports prior stroke about 12 years ago with some residual left sided weakness. Nursing Notes Stated Complaint: POSS STROKE Chief Complaint: Stroke Symptoms Nursing Notes Reviewed: Yes Allergies: Coded Allergies: Honey Bee (Verified Allergy, Severe, anaphylaxis, 01/20/17) Penicillins (Verified Allergy, Severe, SWELLING, HIVES, ITCHING, 03/22/17) TAPE (Verified Allergy, Mild, blisters, 01/20/17) hydromorphone (Verified Adverse Reaction, Intermediate, HALLUCINATIONS, "HIGH", 03/22/17) sumatriptan (Verified Adverse Reaction, Intermediate, CONVULSIONS, SHAKES , 03/22/17) Scheduled Allopurinol (Allopurinol) 300 Mg Tablet 300 MG PO HS Aspirin (Aspirin) 81 Mg Tablet 81 MG PO QAM Atorvastatin Calcium (Atorvastatin Calcium) 10 Mg Tablet 10 MG PO HS Clopidogrel (Clopidogrel) 75 Mg Tablet 75 MG PO QAM Doxazosin (Cardura) 4 Mg Tablet 8 MG PO QAM Finasteride (Finasteride) 5 Mg Tablet 5 MG PO QAM Fluoxetine (Fluoxetine) 40 Mg Capsule 40 MG PO QAM Furosemide (Furosemide) 40 Mg Tablet 40 MG PO QAM Gabapentin (Gabapentin) 600 Mg Tablet 3,600 MG PO QAM Ibuprofen (Ibuprofen) 200 Mg Capsule 800 MG PO QAM Insulin Glargine (Lantus U100 Insulin Vial) 100 Unit/Ml Vial 80 UNIT SUBQ BID Insulin Regular, Human (HUMulin-R U100 Insulin Vial) 100 Unit/1 Ml Vial 40-60 UNIT SUBQ BIDWM BREAKFAST AND DINNER Insulin Regular, Human (HUMulin-R U100 Insulin Vial) 100 Unit/1 Ml Vial 2-20 UNIT SUBQ ACHS SLIDING SCALE Isosorbide MN ER (Isosorbide MN ER) 30 Mg Tab.er.24h 30 MG PO QAM Lisinopril (Lisinopril) 2.5 Mg Tablet 2.5 MG PO QAM Metoprolol Succinate ER (Metoprolol Succinate ER) 25 Mg Tab.er.24h 25 MG PO QAM Nicotine 21 mg/24 hr Patch (Nicotine 21 mg/24 hr Patch) 1 Each Patch.dysq 1 PATCH TRANSDERM QAM Pantoprazole DR (Pantoprazole DR) 40 Mg Tablet.dr 40 MG PO QAM Potassium Chloride ER (Potassium Chloride ER) 20 Meq Tablet.er 20 MEQ PO QAM TAKE WITH FOOD Tamsulosin ER (Tamsulosin ER) 0.4 Mg Cap.er.24h 0.8 MG PO QAM Scheduled PRN Acetaminophen (Acetaminophen) 500 Mg Tablet 500-1,000 MG PO Q6H PRN PRN For Pain Albuterol HFA (Proair HFA) 8.5 Gm Hfa.aer.ad 2 PUFFS INHALATION QID PRN PRN For Shortness of Breath Nitroglycerin SL (Nitroglycerin SL) 0.4 Mg Tab.subl 0.4 MG SL Q5MIN PRN PRN For Chest Pain Oxycodone HCl/Acetaminophen (Endocet 10-325 mg Tablet) 1 Each Tablet 1 EACH PO QID PRN PRN For Pain Triamcinolone Acet (Triamcinolone Acetonide Cream) 1 Applic/0.25 Gm Cr 1 APPLIC EXT DAILY PRN PRN DRY PATCHES TO FEET AFTER SHOWER General Time Seen by MD: 12:03 Chief Complaint Headache, Not feeling well, Weakness Hx Obtained From: Patient, Spouse, Other family... (Mother) Arrived By: Walk-in Onset Occurred: 5 - 8 hours ago Symptom Duration: Since onset Location: : Head: Thigh right Severity: Current: Moderate Severity: Maximum: Moderate Past Medical History Past Medical History Notes: Patient states has had "nine stents" placed at [facility] For CP 08/01/2016, 08/04/16, and 08/26/16 Multiple ED visits for CP, admitted for chest pain 11/21/2016 with hospitalist diagnosis of narcotic seeking behavior Echocardiogram November 15-EF 60-65%, no focal wall motion Seen in the ED 01/14/2017 for chest pain abnormalities, no significant valvular disease Past Medical History CAD - multiple stents, cardiac caths 02/14, 03/12, 04/11, ad 04/17 w/stent placed to proximal LAD overlapping prior stent and "plavix non-responder" Syncope Type two diabetes with neuropathy Chronic back and leg pain Lower extremity DVT "years ago" per patient, details unclear History of migraines BPH Kidney Stones On Warfarin and Plavix HTN [facility] 2014 Concern for TIA October 2016, MRI/MRA negative Reports: COPD, Congestive heart failure, Stroke Reports: Heroin use Past Surgical History Shoulder surgery (joint replacement) Left knee surgery Ganglion cyst in right hand Cardiac stents ("x9" - at Prov) Reports: Cholecystectomy Family History Both of the patient's parents are still alive Smoking History Current Every Day Smoker Social History Alcohol Use: Denies alcohol use Drug Use: Denies drug use Other Social History: Good social support, , Local resident Occupation [employer] Ambulatory Status Independent Review of Systems Full Review of Systems Constitutional: Reports: Weakness - generalized, Denies: Fever Eyes: Reports: Blurred left Respiratory: Denies: Shortness of breath, Wheezing Cardiovascular: Reports: Syncope, Denies: Chest pain, Palpitations GI: Reports: Nausea, Vomiting, Denies: Abdominal pain, Constipation, Diarrhea Male: Denies Dysuria, Denies Urinary frequency Musculoskeletal: Denies: Extremity swelling Neurologic: Reports: Headache, Numbness (face, left side, left arm ), Syncope, Vision change (blurred left eye), Weakness, Denies: Confusion, Slurred speech Psychiatric: Denies: Change mental status Physical Exam Vital Signs Vital Signs Date Time Temp Pulse Resp B/P Pulse Ox O2 Delivery O2 Flow Rate FiO2 03/22/17 14:13 67 16 132/82 94 Room Air 03/22/17 12:15 80 19 111/49 94 Room Air 03/22/17 11:37 36.7 74 18 122/79 99 Room Air Initial VS: Reviewed, Vital signs normal General/Constitutional: Awake, Alert, No acute distress, Well appearing, Well developed, Well hydrated, Well nourished, Cooperative Head / Eyes: Atraumatic, Normocephalic, PERRL, EOMI, No nystagmus, No scleral icterus, Conjunctiva NL ENT: Pharynx NL Mouth: Positive: Mucous membranes dry Neck: Atraumatic, Supple, No adenopathy, Non-tender, No JVD Respiratory / Chest: Breath sounds NL, Breath sounds = bilat, No respiratory distress Cardiovascular: Heart rate NL, Regular rhythm, Heart sounds NL, Cap refill not delayed, Pulses = bilaterally Abdomen: Atraumatic, Soft, Non-tender Lower Extremity / Pelvis / MS: No swelling, Non-tender Skin: No rash, Warm, Dry, Intact Neurologic: Oriented X3, Speech NL, No motor deficits, CN II - XII intact Focal Weakness: Positive: Pronator drift L, Upper extremity L Sensory Deficit: Positive: Upper extremity L Interpretation & Diagnostics Lab Results Interpretation Result Diagram: 03/23/17 0500 03/23/17 0500 Test 03/22/17 11:50 03/22/17 13:31 Neutrophils (%) (Auto) 62.2% (40-74) Lymphocytes (%) (Auto) 28.5% (14-46) Monocytes (%) (Auto) 6.9% (4-12) Eosinophils (%) (Auto) 1.8% (0-5) Basophils (%) (Auto) 0.4% (0-3) Prothrombin Time 9.9sec (8.1-12.5) Prothromb Time International Ratio 0.93ratio Activated Partial Thromboplast Time 28.5sec (22.8-33.0) Total Bilirubin 0.5mg/dL (0.0-1.2) Aspartate Amino Transf (AST/SGOT) 16U/L (0-50) Alanine Aminotransferase (ALT/SGPT) 15U/L (0-44) Alkaline Phosphatase 120U/L (25-150) Troponin T 0.010ug/L (0.0-0.011) Total Protein 7.3g/dL (6.4-8.4) Albumin 3.7g/dL (3.4-5.0) Hold Pereyra Top Tube Received (Received) Urine Color Yellow (YELLOW) Urine Appearance Clear (CLEAR,HAZY) Urine pH 6.0 (5.0-8.0) Urine Specific [place] 1.010 (1.003-1.035) Urine Protein Negativemg/dL (NEG,TRACE) Urine Glucose (UA) 1000mg/dL (NEGATIVE) Urine Ketones Negativemg/dL (NEGATIVE) Urine Occult Blood Negative (NEGATIVE) Urine Nitrite Negative (NEGATIVE) Urine Bilirubin Negative (NEGATIVE) Urine Urobilinogen Normalmg/dL (NORMAL) Urine Leukocyte Esterase Negative (NEGATIVE) Urine RBC 0-2/hpf (0-2) Urine WBC 0-5/hpf (0-5) Urine Epithelial Cells Occasional/hpf (NONE-MOD) Urine Crystals None seen (NONE SEEN) Urine Bacteria None/hpf (NONE-FEW) Urine Hyaline Casts None/lpf (NONE) Urine Granular Casts None seen (NONE SEEN) Urine Waxy Casts None seen (NONE SEEN) Urine Red Blood Cell Casts None seen (NONE SEEN) Urine White Blood Cell Casts None seen (NONE SEEN) Urine Mucus None seen (None Seen) Urine Trichomonas None seen (NONE SEEN) Urine Yeast None (NONE SEEN) Urinalysis Comment None Urine Culture Reflexed Not indicated ECG Interpretation ECG Interpretation: Borderline low voltage in precordial leads Time: 11:57 Interpreted by: ED physician Normal ECG Interpretation: Normal rate (81), Normal sinus rhythm, No acute ischemic changes, Normal QRS, Normal axis, Normal intervals, No change from prior ECGs (03/17/17) BMP / CMP Interpretation Na low (129), Glucose elevated (498) CT Head Interpretation Possible subacute left pontine infarct Study: Head CT no contrast Interpretation / Wet Read by: Interpret - Radiologist (Simba Grullon M.D. on at 12:35 ) Re-Eval/Medical Decision Med Decision/Clinical Course Patient is a 47 year old male with history of CAD, DM and prior stroke presented to ED after syncope followed by right leg weakness and left hand and face numbness onset earlier this morning. Patient was seen normal last time yesterday before he went to bed. His symptoms started at 4 am this morning ( nausea, vomiting, feeling unwell) followed by syncopy and sensory motor deficit. He presented to ED 7hours after the onset of symptoms. He is not a TPA candidate. His NIH stroke scale score is 3. His CT head without contrast revealed possible subacute left pontine infarct. Patient is on Aspirin and Plavix, and statin therapy. Patient's case was discussed with the hospitalist, Dr. Antonio, who agrees with the assessment, plan, and need for admission for further CVA workup. Counseled Regarding: Diagnosis, Lab results, Need for admission Discharge & Departure Primary Impression: Syncope and collapse Additional Impression: Cerebrovascular accident CVA mechanism: unspecified Qualified Code: I63.9 - Cerebral infarction, unspecified Disposition: ADMITTED TO HOSPITAL Referrals: Santiago Funez MD (PCP) EDSupervising Provider for APC: Quincy Meyer MD [place] Attestation Portions of this note were transcribed by Yehuda Noble. I, Dr. Meyer personally performed the history, physical exam and medical decision-making; I reviewed and confirmed the accuracy of the information in the transcribed note. Signed by: Cindy Hammond, 03/22/17 and 1254 Attending Statement Attending attestation: I saw this patient in conjunction with the above named resident. I was present for all [place] portions of the history taking and physical examination. I agree with the workup, evaluation, treatment and disposition. Quincy Meyer MD copies to: Santiago Funez MD, Beck O MD March 22, 2017 12:06 YEHUDA NOBLE March 22, 2017 12:54 Allegra Shane DO March 22, 2017 13:12
[2017-03-22 12:16] LABS: BASOPHILS % (AUTO) 0.4 % (0-3); EOSINOPHILS % (AUTO) 1.8 % (0-5); MONOCYTES % (AUTO) 6.9 % (4-12); Mean Corpuscular Hemoglobin 29.7 pg (27.0-35.0); Mean Corpuscular Volume 86.4 fL (81-100); NEUTROPHILS % (AUTO) 62.2 % (40-74); Platelet Count 237 bil/L (150-400)
[2017-03-22] MEDS ORDERED: 0.9% Sodium Chloride 1,000 ML IV ONE (12:25)
[2017-03-22] MEDS ORDERED: Insulin Human REGular-Omnicell 100 Unit/mL SUBQ ONE (12:25)
[2017-03-22 12:32] LABS: INR 0.93 ratio
--- NOTE | 2017-03-22 12:36 | DRSVH ---
PROCEDURE: CT BRAIN WITHOUT CONTRAST ([id number]) INDICATIONS: Stroke TECHNIQUE: Noncontrast 4.5 mm thick angled axial sections acquired from the foramen magnum to the vertex, with c oronal reformats. COMPARISON: [facility], MR, MR SEIZURE BRAIN W&WO CON, 01/19/2017, 10:25. FINDINGS: Image quality: Excellent. CSF spaces: Basal cisterns are patent. No extra-axial fluid collections. Ventricles are normal in size and shape. Brain: No midline shift. No intracranial masses or hemorrhage. There is a 12 mm diameter low-densi ty focus within the left maryellen. Haider-white matter interface is normal. Skull and face: Calvarium and visualized facial bones are intact, without suspicious lesions. Sinuses: Visualized sinuses and mastoids are clear. IMPRESSION: 1. No acute intracranial abnormality. 2. Possible subacute left pontine infarct. This could also represent artifact. Stroke protocol MRI ma y be helpful for further assessment. Dictated by: Simba Grullon M.D. on 03/22/2017 at 12:34 Approved by: Simba Grullon M.D. on 03/22/2017 at 12:35
[2017-03-22 12:37] LABS: TROPONIN T 0.01 ug/L (0.0-0.011)
--- NOTE | 2017-03-22 13:32 | NUR ---
Evaluation completed. Please go to "Notes" then click on "Assessments and Notes" (bottom left corner of screen). Then select appropriate discipline tab on top of screen.
[2017-03-22] MEDS ORDERED: Ondansetron 2 mg/mL 2 mL Inj IVPUSH PRN ×2 (14:00→16:25)
[2017-03-22] MEDS ORDERED: Alum-Mag Hydrox-Simeth 30 mL Suspension PO PRN ×2 (14:00→16:25)
[2017-03-22 14:02] LABS: APPEARANCE,URINE CLEAR (CLEAR,HAZY); COLOR,URINE YELLOW (YELLOW); OCCULT BLOOD,URINE NEGATIVE (NEGATIVE); UROBILINOGEN,URINE NORMAL (NORMAL)
--- NOTE | 2017-03-22 15:09 | NUR ---
Admit to [facility] [place] [facility] [place] admitted to floor 1450, arrived accompanied by family members, all belongings intact. Pt is A&Ox3, on RA, SL, reporting neck pain 07/06, VS stable. Pt has LUE & RLE weakness. Admit nurse completing admit/med rec now. Care continues
[2017-03-22] MEDS ORDERED: FLUO40CA PO (15:42)
[2017-03-22] MEDS ORDERED: GABA600T2 PO (15:42)
[2017-03-22] MEDS ORDERED: FINA5TAB9 PO (15:42)
[2017-03-22] MEDS ORDERED: ISOS30TA4 PO (15:42)
[2017-03-22] MEDS ORDERED: DOXA4TAB2 PO (15:42)
[2017-03-22] MEDS ORDERED: ALLO300T2 PO (15:42)
[2017-03-22] MEDS ORDERED: POTA-62 PO (15:42)
[2017-03-22] MEDS ORDERED: FURO40TA4 PO (15:42)
[2017-03-22] MEDS ORDERED: INSU100V28 SUBQ (15:42)
[2017-03-22] MEDS ORDERED: METO25TA99 PO (15:45)
[2017-03-22] MEDS ORDERED: PANT40TA3 PO (15:45)
[2017-03-22] MEDS ORDERED: KEN25CR EXT (15:45)
[2017-03-22] MEDS ORDERED: LISI2.5T PO (15:45)
[2017-03-22] MEDS ORDERED: NICO1PAT16 TRANSDERM (15:47)
[2017-03-22] MEDS ORDERED: ACET-171 PO (15:48)
[2017-03-22] MEDS ORDERED: IBUP200C PO (15:48)
[2017-03-22] MEDS ORDERED: HYDROcodone-APAP 5-325 mg Tablet PO PRN (16:25)
[2017-03-22] MEDS ORDERED: Polyethylene Glycol (PEG) 17 Gm Powder PO PRN (16:25)
[2017-03-22] MEDS ORDERED: Labetalol 5 mg/mL 4 mL Inj IVPUSH PRN (16:25)
[2017-03-22] MEDS ORDERED: Albuterol HFA 60 Puff 8 Gm Inhaler INHALATION PRN (16:35)
[2017-03-22] MEDS ORDERED: TRIAMCINOLONE ACET EXT PRN (16:35)
[2017-03-22] MEDS ORDERED: FLUOXETINE 40 MG PO SCH (16:35)
[2017-03-22] MEDS ORDERED: Insulin Human REGular 300 Unit/3 mL Inj SUBQ SCH (17:00)
--- NOTE | 2017-03-22 17:00 | PCM.HPMED ---
Subjective Date of Service March 22, 2017 Primary Provider: Admitting Physician: Poalo Antonio Primary Care Physician: Santiago Funez MD Attending Physician: Paolo Antonio Chief Complaint: passed out, left arm and face numbness, right leg weakness, neck pain History of Present Illness: 46 year old male with Coronary artery disease, type II diabetes mellitus, CHF, stroke (resulting in left hand weakness which resolved), [place], hypertension, frequent ED visits due to angina and multiple cardiac stents presents who continues to smoke daily presents with report of acute syncope followed by left facial and arm numbness and right leg weakness. He woke this morning drenched in sweat and not feeling well. He went out to the yard and smoked a cigarette and after a while felt back to "normal". He went in and had breakfast and while still feeling well went back outside to smoke again. He was sitting down smoking and stood up when suddenly felt a severe sharp pain in his right groin which caused his to bend over. He then felt lightheaded and passed out. He woke up with his face on the grass. He thinks he was out for only a few seconds although he is not absolutely sure. He then went inside and slept for couple of hours but when he woke up he felt significant numbness in his left hand and left side of the face. He tried to stand up and noted significant weakness and lack of coordination in his right leg. With these symptoms he presented to the ED although he says by now most of his symptoms have now almost completely resolved. As he was getting out of his car to enter the ED he had another episode of severe right inguinal pain which almost caused him to pass out but he didn't. He now reports a significant neck pain and some generalized headache and nausea. He feels his left arm is mildly weak but otherwise denies any other complaints. Review of Systems: Constitutional: Negative, except as otherwise mentioned in the history above. Ophthalmologic: Negative, except as otherwise mentioned in the history above. Cardiovascular: Negative, except as otherwise mentioned in the history above. Respiratory: Negative, except as otherwise mentioned in the history above. Gastrointestinal: Negative, except as otherwise mentioned in the history above. Genitourinary: Negative, except as otherwise mentioned in the history above. Musculoskeletal: Negative, except as otherwise mentioned in the history above. Neurological: Negative, except as otherwise mentioned in the history above. Psychiatric: Negative, except as otherwise mentioned in the history above. Hematologic/Lymphatic: Negative, except as otherwise mentioned in the history above. Allergic/Immunologic: Negative, except as otherwise mentioned in the history above. Allergies Coded Allergies: Honey Bee (Verified Allergy, Severe, anaphylaxis, 01/20/17) Penicillins (Verified Allergy, Severe, SWELLING, HIVES, ITCHING, 03/22/17) TAPE (Verified Allergy, Mild, blisters, 01/20/17) hydromorphone (Verified Adverse Reaction, Intermediate, HALLUCINATIONS, "HIGH", 03/22/17) sumatriptan (Verified Adverse Reaction, Intermediate, CONVULSIONS, SHAKES , 03/22/17) Home Medications Aspirin (Aspirin) 81 Mg Tablet 81 MG PO DAILY (Reported) Atorvastatin (Lipitor) 80 Mg Tablet 80 MG PO HS (Reported) Clopidogrel (Clopidogrel) 75 Mg Tablet 75 MG PO DAILY (Reported) Doxazosin Mesylate (Doxazosin Mesylate) 4 Mg Tablet 4-8 MG PO HS (Reported) Finasteride (Finasteride) 5 Mg Tablet 5 MG PO DAILY (Reported) Fluoxetine (Fluoxetine) 20 Mg Capsule 20 MG PO DAILY (Reported) Furosemide (Furosemide) 40 Mg Tablet 40 MG PO BID (Reported) Gabapentin (Gabapentin) 300 Mg Capsule 1,200 MG PO TID (Reported) Insulin Glargine (Lantus U100 Insulin Vial) 100 Unit/Ml Vial 100 UNIT SUBQ BID ( Reported) Insulin Regular, Human (HUMulin-R U100 Insulin Vial) 100 Unit/1 Ml Vial 80 UNIT SUBQ BIDAC (Reported) Isosorbide MN ER (Isosorbide MN ER) 60 Mg Tab.er.24h 60 MG PO DAILY (Reported) Lisinopril (Lisinopril) 2.5 Mg Tablet 2.5 MG PO DAILY (Reported) Metoprolol Succinate ER (Metoprolol Succinate ER) 25 Mg Tab.er.24h 12.5 MG PO DAILY (Reported) Pantoprazole DR (Pantoprazole DR) 20 Mg Tablet.dr 20 MG PO DAILY (Reported) Potassium Chloride (Potassium Chloride) 20 Meq Tab.er.prt 20 MEQ PO DAILY ( Reported) Tamsulosin ER (Tamsulosin ER) 0.4 Mg Cap.er.24h BID (Reported) As needed Albuterol HFA (Proair HFA) 8.5 Gm Hfa.aer.ad 2 PUFFS INHALATION QID PRN PRN For Shortness of Breath (Reported) Loperamide (Loperamide) 2 Mg Capsule 2-4 MG PO TID PRN PRN For Diarrhea or Loose Stool (Reported) Nitroglycerin SL (Nitroglycerin SL) 0.4 Mg Tab.subl 0.4 MG SL Q5MIN PRN PRN For Chest Pain (Reported) Oxycodone HCl/Acetaminophen (Endocet 10-325 mg Tablet) 1 Each Tablet 1-2 EACH PO Q4H PRN PRN For Pain (Reported) Exam Vital Signs & I/O Vital Sign- Last 8 Hours Date Time Temp Pulse Resp B/P Pulse Ox O2 Delivery O2 Flow Rate FiO2 03/22/17 15:21 65 03/22/17 14:59 36.9 69 18 118/76 96 Room Air 03/22/17 14:13 67 16 132/82 94 Room Air 03/22/17 12:15 80 19 111/49 94 Room Air 03/22/17 11:37 36.7 74 18 122/79 99 Room Air Lab & Micro Results Laboratory Tests Test 03/22/17 11:50 03/22/17 13:31 White Blood Count 9.0th/mm3 (3.8-10.1) Red Blood Count 4.55mil/mm3 (4.40-5.80) Hemoglobin 13.5g/dL (13.8-17.2) Hematocrit 39.3% (41.0-50.0) Mean Corpuscular Volume 86.4fL (81-100) Mean Corpuscular Hemoglobin 29.7pg (27.0-35.0) Mean Corpuscular Hemoglobin Concent 34.4% (32.0-37.0) Red Cell Distribution Width 13.5% (12.3-15.4) Platelet Count 237bil/L (150-400) Neutrophils (%) (Auto) 62.2% (40-74) Lymphocytes (%) (Auto) 28.5% (14-46) Monocytes (%) (Auto) 6.9% (4-12) Eosinophils (%) (Auto) 1.8% (0-5) Basophils (%) (Auto) 0.4% (0-3) Prothrombin Time 9.9sec (8.1-12.5) Prothromb Time International Ratio 0.93ratio Activated Partial Thromboplast Time 28.5sec (22.8-33.0) Sodium Level 129mEq/L (134-144) Potassium Level 4.1mEq/L (3.5-5.2) Chloride Level 92mEq/L (97-108) Carbon Dioxide Level 19mmol/L (18-29) Blood Urea Nitrogen 16mg/dL (6-24) Creatinine 0.87mg/dL (0.76-1.27) Estimat Glomerular Filtration Rate 99mL/min (>59) Glucose Level 498mg/dL (60-99) Calcium Level 9.1mg/dL (8.5-10.1) Total Bilirubin 0.5mg/dL (0.0-1.2) Aspartate Amino Transf (AST/SGOT) 16U/L (0-50) Alanine Aminotransferase (ALT/SGPT) 15U/L (0-44) Alkaline Phosphatase 120U/L (25-150) Troponin T 0.010ug/L (0.0-0.011) Total Protein 7.3g/dL (6.4-8.4) Albumin 3.7g/dL (3.4-5.0) Hold Pereyra Top Tube Received (Received) Urine Color Yellow (YELLOW) Urine Appearance Clear (CLEAR,HAZY) Urine pH 6.0 (5.0-8.0) Urine Specific [place] 1.010 (1.003-1.035) Urine Protein Negativemg/dL (NEG,TRACE) Urine Glucose (UA) 1000mg/dL (NEGATIVE) Urine Ketones Negativemg/dL (NEGATIVE) Urine Occult Blood Negative (NEGATIVE) Urine Nitrite Negative (NEGATIVE) Urine Bilirubin Negative (NEGATIVE) Urine Urobilinogen Normalmg/dL (NORMAL) Urine Leukocyte Esterase Negative (NEGATIVE) Urine RBC 0-2/hpf (0-2) Urine WBC 0-5/hpf (0-5) Urine Epithelial Cells Occasional/hpf (NONE-MOD) Urine Crystals None seen (NONE SEEN) Urine Bacteria None/hpf (NONE-FEW) Urine Hyaline Casts None/lpf (NONE) Urine Granular Casts None seen (NONE SEEN) Urine Waxy Casts None seen (NONE SEEN) Urine Red Blood Cell Casts None seen (NONE SEEN) Urine White Blood Cell Casts None seen (NONE SEEN) Urine Mucus None seen (None Seen) Urine Trichomonas None seen (NONE SEEN) Urine Yeast None (NONE SEEN) Urinalysis Comment None Urine Culture Reflexed Not indicated Result Diagram: 03/22/17 1150 03/22/17 1150 [facility] Diabetes mellitus type 2-insulin dependent Morbid obesity Chronic pain with narcotic dependence Cervical disk disease Chronic low back pain BPH Diabetic associated neuropathy Depression Dyslipidemia GERD Ongoing tobacco abuse Hypertension Meningitis at age 11. 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 Surgical History Left rotator cuff surgery x2 Right knee surgery Left knee surgery Ganglion cyst in right hand Cardiac stents ("x9" - at [place]) Cholecystectomy Family History Father w/diabetes and [place] at 49- Mother CABG at 59 Grandmother- [place] at 47 Grandfather-CVA Social History Hx Alcohol Use: No (on holidays; social occassional) Hx Substance Use: No Hx Tobacco Use: Yes Smoking Status: Current Every Day Smoker (1.5 ppd) Exam Vital Signs Vital Sign - Last Date Time Temp Pulse Resp B/P Pulse Ox O2 Delivery O2 Flow Rate FiO2 03/22/17 15:21 65 03/22/17 14:59 36.9 18 118/76 96 Room Air Exam General: Alert, Oriented X3, Cooperative, No acute Distress Eyes: PERRLA, Scleral Anicteric Mouth: Mouth Normal, Mucous Membranes Moist/[place] Neck: Supple, no Thyromegaly, trachea central. Chest & Lungs: Clear to auscultation & percussion, No adventitious breath sounds, no crackles, no wheeze Cardiovascular: Normal S1, Normal S2, No Murmurs/Rubs/Gallops, Regular Rate/ Rhythm, (No JVD, no peripheral edema) Pulses: Radial (present and equal), Dorsalis Pedi (present and equal) Abdomen: Soft, Non-distended, Normoactive bowel tones. Tender to palpation at right inguinal region Musculoskeletal: Unremarkable. Normal range of motion, no swollen or erythematous joints Extremities: No edema, no cyanosis, no clubbing. Skin: No rashes. Warm and dry, no erythematous areas Neurological: Grossly neurologically intact, Normal Speech, Sensation Intact. CN II-XII grossly intact. Strength is 4/4 in LE bilaterally and in right UE. 3/ 4 in left UE. Lymphatic: Lymph nodes Cervical and Axillary not palpable. Lab and Diagnostics Result Diagram: 03/22/17 1150 03/22/17 1150 X-Rays, CTs and MRIs Date of Service: 03/22/17 1153 PROCEDURE: CT BRAIN WITHOUT CONTRAST ([id number]) IMPRESSION: 1. No acute intracranial abnormality. 2. Possible subacute left pontine infarct. This could also represent artifact. Stroke protocol MRI may be helpful for further assessment. Dictated by: Simba Grullon M.D. on 03/22/2017 at 12:34 Approved by: Simba Grullon M.D. on 03/22/2017 at 12:35 12-lead ECG NSR at [address] elevation/depression Assessment & Plan 46 year old obese male with a past medical history significant for CAD s/p stent placement x9, uncontrolled DM2 with neuropathy and chronic pain with narcotic dependence who presented to [facility] Emergency department via EMS due to a syncopal episode followed by reported neck pain and left UE numbness/weakness and right leg weakness. # Acute Syncope. Present on admission - consistent with classical vasovagal reaction in setting of severe right inguinal pain - he has had extensive cardiac workup and workup for syncope as recently as December 2016 and so I will not pursue any further significant workup of this syncope other than placing him on Tele for now - check chest x-ray # Acute left upper extremity and right lower extremity weakness and transient numbness of left UE. - given history of prior stroke and multiple risk factor we will pursue further stroke workup at this point although I suspect that symptoms may be related to a cervical radiculapathy or nerve compression given report of neck pain after syncope. - MRI stroke protocol - check neck MRI as well - limited echo - continue with home dose Aspirin, Plavix, and Statin - permissive hypertension for now - PT/OT evaluation # Acute right inguinal pain, present on admission. Ongoing - Unclear etiology - CT abdomen/pelvis for further assessment # Acute hyponatremia. Present on admission - likely due to dehydration and pre-renal state - hold home dose diuretics - IV fluid in form of NS - followup repeat labs in am # Coronary artery disease s/p 9 stents, chronic and presumed stable. - EKG showing no ischemic changes - continue antiplatelet and Statin # History of hypertension. Currently stable - hold home BP meds for now until stroke workup complete and negative # Diabetes mellitus type 2, - continue with home dose Insulin - ISS # Nicotine Dependence - rehab/pre vocational counselor, discussed cessation and encouraged - nicotine patch daily # Chronic pain on narcotics - documentations of narcotic seeking behavior and will be closely monitored - resume home dosing of oral pain medications - IV morphine prn for current neck pain # Obesity BMI 41.1 - discussed weight loss and exercise coupled with healthy eating # BPH, chronic. stable - continue with home meds # History of depression. Stable - home meds. Expected length of hospital stay at this time is less than 2 midnights and likely home tomorrow GI Prophylaxis: Proton Pump Inhibitor VTE Prophylaxis: Sub-Q Heparin (Unfractionated) Resuscitation Status: CPR: Attempt Resuscitation (discussed and verified with patient) Time spent 65 min Paolo Antonio March 22, 2017 16:59
[2017-03-22] MEDS ORDERED: Albuterol 2.5 mg/3 mL Inhalation Solution NEB PRN (17:10)
[2017-03-22] MEDS: oxyCODONE-Acetamin 10-325 mg Tablet PO PRN (17:22)
[2017-03-22] MEDS: 0.9% Sodium Chloride 1,000 ML IV SCH (17:22)
--- NOTE | 2017-03-22 17:25 | DRSVH ---
PROCEDURE: X-RAY CHEST, TWO VIEWS ([id number]) INDICATIONS: syncope TECHNIQUE: 2 views of the chest were acquired. COMPARISON: [facility], CR, XR CHEST 1VW (PORTABLE), 03/17/2017, 18:39. FINDINGS: Surgical changes and devices: None. Lungs and pleura: No pleural effusions or pneumothorax. Mild patchy opacity at the right medial lung base. Mediastinum: Mediastinal contours are normal. Heart size is normal. Bones and chest wall: No suspicious bony abnormalities. Soft tissues appear unremarkable. IMPRESSION: Mild right lung base pneumonia. Dictated by: Simba Grullon M.D. on 03/22/2017 at 17:23 Approved by: Simba Grullon M.D. on 03/22/2017 at 17:24
[2017-03-22] MEDS: Insulin Human REGular (HUMulin-R) 100 Unit/mL 10 mL SUBQ SCH (17:30)
[2017-03-22] MEDS: Heparin 5,000 Unit/mL Inj SUBQ SCH (17:32)
[2017-03-22] MEDS ORDERED: Glucose 40% Oral Gel 15 Gm Tube PO PRN (17:40)
[2017-03-22] MEDS ORDERED: Dextrose 10% 250 ML IV PRN (17:40)
[2017-03-22] MEDS: Insulin Human REGular 300 Unit/3 mL Inj - Low SUBQ SCH ×2 (18:13→20:12)
[2017-03-22] MEDS: Insulin GLARgine 100 Unit/mL Syringe SUBQ SCH (20:11)
--- NOTE | 2017-03-22 20:13 | NUR ---
OFF UNIT Pt went to CT via wheelchair. architecture technician aware. Addendum: 03/23/17 at 0454 by STEPHANIE LEGER RN Return to Unit Pt returned to unit at 2034.
--- NOTE | 2017-03-22 20:36 | DRSVH ---
PROCEDURE: CT ABDOMEN AND PELVIS WITH CONTRAST ([id number]) INDICATIONS: right lower abd / inguinal pain TECHNIQUE: After the administration of oral and intravenous contrast, 5 mm thick sections acquired from the diap hragms to the symphysis. 5 mm thick coronal and sagittal reformats were performed. For radiation do se reduction, the following was used: automated exposure control, adjustment of mA and/or kV accordi ng to patient size. COMPARISON: [facility], CT, CT ABD PELVIS W CON, 11/11/2015, 11:55. FINDINGS: Image quality: Excellent. ABDOMEN: Lung bases: Lung bases are clear. Heart size is normal. Solid organs: Liver and spleen are normal in size and enhancement. Gallbladder is surgically absent . Biliary system is non-dilated. Pancreas enhances normally. There is fatty atrophy of the pancrea tic head. No adrenal nodules. Kidneys are normal in size and enhancement, without hydronephrosis. T here are 3 nonobstructing calculi within the right interpolar kidney, ranging in size from 3-5 mm tierra meter. Peritoneum and bowel: Stomach, small bowel, and colon loops are normal in caliber and wall thickness . No free fluid or air. Normal appendix. Nodes and vessels: No retroperitoneal or mesenteric adenopathy. Aorta and inferior vena cava are no rmal in caliber. Miscellaneous: No ventral hernias. PELVIS: Genitourinary: Urinary bladder is decompressed. Miscellaneous: No inguinal hernias or adenopathy. Bones: No suspicious bony lesions. No vertebral body compression fractures. IMPRESSION: 1. No acute process. 2. Nonobstructing right nephroliths. 3. Normal appendix. Dictated by: Simba Grullon M.D. on 03/22/2017 at 20:32 Approved by: Simba Grullon M.D. on 03/22/2017 at 20:34
[2017-03-23 00:58] VITALS: BP 138/78; PULSE 82; RESP 18; O2SAT 97
[2017-03-23] MEDS: oxyCODONE-Acetamin 10-325 mg Tablet PO PRN ×2 (02:15→08:23)
--- NOTE | 2017-03-23 04:54 | NUR ---
Pain/Neuor's Pt complained of neck and back pain 8-9/10 during the night x3. Administered pain meds. Pt reported no change in pain. Gave pt ice packs for neck. Pt now resting with eyes closed. Pt continues to have Right sided lower extremity weakness, but reports his strength has improved. No s/sx of pain or discomfort at this time. No complaints of chest pain, SOB or n/v. Call light within reach, using appropriately. Bed locked, low position. non-slip socks and SBA for safety. Pleasant and cooperative with care. Will continue to monitor.
[2017-03-23] MEDS: Heparin 5,000 Unit/mL Inj SUBQ SCH (05:13)
[2017-03-23 05:17] VITALS: BP 128/81; PULSE 74; RESP 18; O2SAT 97
[2017-03-23 05:24] LABS: Mean Corpuscular Hemoglobin 29.6 pg (27.0-35.0); Mean Corpuscular Volume 87.6 fL (81-100)
[2017-03-23 05:44] LABS: Magnesium 2.1 mg/dL (1.6-2.6)
[2017-03-23 05:53] VITALS: PULSE 72
[2017-03-23] MEDS: 0.9% Sodium Chloride 1,000 ML IV SCH (05:57)
[2017-03-23] MEDS ORDERED: Pantoprazole 40 mg ER24 Tablet PO SCH (06:30)
[2017-03-23] MEDS: Insulin Human REGular (HUMulin-R) 100 Unit/mL 10 mL SUBQ SCH (08:00)
[2017-03-23] MEDS: Insulin GLARgine 100 Unit/mL Syringe SUBQ SCH (08:20)
[2017-03-23] MEDS: Insulin Human REGular 300 Unit/3 mL Inj - Low SUBQ SCH (08:20)
[2017-03-23] MEDS ORDERED: MeTOProlol XL 25 mg ER24 Tablet PO SCH (08:30)
--- NOTE | 2017-03-23 08:47 | NUR ---
Social Work: Screening Data: Pt is a 47 y/o male admitted for VA/TIA, hyponatremia. Pts PCP is Dr Funez, pt's insurance is [facility] Blind/disabled. EMR reviewed. YARN DRY ROOM WORKER will follow up if needed regarding d/c planning needs pending MD order. YARN DRY ROOM WORKER will continue to follow. Assessment: Pt who is independent at baseline. Plan: Pt will likely d/c home via POV when medically stable. YARN DRY ROOM WORKER will follow up if needed regarding d/c planning needs pending MD order. YARN DRY ROOM WORKER will continue to follow. ANTHONY Perea
--- NOTE | 2017-03-23 10:56 | DRSVH ---
PROCEDURE: US BILATERAL DUPLEX DOPPLER IMAGING OF THE CAROTIDS ([id number]) INDICATIONS: R/O Carotid Disease if no MRA or CTA Neck TECHNIQUE: Color and pulse Doppler interrogation was performed of both carotid systems, with image documentation and velocity measurements. COMPARISON: None. FINDINGS: All stenosis calculations are based on NASCET criteria. Right side: Brachial blood pressure: 128/81 mm Hg. Common Carotid Artery(Distal) PSV: 85.40 cm/s Internal Carotid Artery PSV- Proximal: 63.90 cm/s Mid-lon.70 cm/s Distal: 90.90 cm/s EDV - Proximal: 30.80 cm/s Mid-lon.60 cm/s Distal: 42.60 cm/s External Carotid Artery(Proximal) PSV: 113.30 cm/s ICA/CCA PSV ratio: 1.0 Haider scale imaging description: Mild atheromatous plaque Percent internal carotid artery stenosis: Less than 50%. Vertebral artery: Flow direction is antegrade. Left side: Brachial blood pressure: 138/78 mm Hg. Common Carotid Artery(Distal) PSV: 91.40 cm/s Internal Carotid Artery PSV - Proximal: 67.90 cm/s Mid-lon.30 cm/s Distal: 89.70 cm/s EDV - Proximal: 27.10 cm/s Mid-lon.30 cm/s Distal: 43.20 cm/s External Carotid Artery(Proximal) PSV: 150.80 cm/s ICA/CCA PSV ratio: 1.1 Haider scale imaging description: Mild atheromatous plaque Percent internal carotid artery stenosis: Less than 50%. Vertebral artery: Flow direction is antegrade. IMPRESSION: There is less than 50% stenosis in the common and internal carotid arteries bilaterally via NASCET criteria. Patent vertebral arteries with antegrade flow bilaterally. Dictated by: Dereck Cifuentes M.D. on 03/23/2017 at 10:53 Approved by: Dereck Cifuentes M.D. on 03/23/2017 at 10:54
--- NOTE | 2017-03-23 11:00 | NUR ---
Evaluation completed/up ad robbi Please go to "Notes" then click on "Assessments and Notes" (bottom left corner of screen). Then select appropriate discipline tab on top of screen. No further PT; up ad robbi
[2017-03-23 11:10] VITALS: BP 143/87; PULSE 63; RESP 18; O2SAT 96
--- NOTE | 2017-03-23 11:41 | NUR ---
left AMA Pt left AMA at 1115, walking out with his . IV & tele d/c. notified. When asked why pt wanted to leave, pt stated "I'm tired of laying around hurting, I'm going to go home and take care of myself" RN offered to have physician come and speak to pt, pt refused. Allowed for VS to be taken though. AMA form signed, primary RN as witness. VSS, all personal belongings left with pt.
--- NOTE | 2017-03-23 14:34 | PCM.DC.MED ---
Discharge Summary Date of Service March 23, 2017 Dates of Hospitalization Date of Hospital Admission March 22, 2017 at 14:36 Date of Discharge: March 23, 2017 Providers: Admitting Physician: Paolo Carpenter Primary Care Physician: Santiago Funez MD Attending Physician: Paolo Carpenter Diagnosis at Time of Discharge Diagnosis at Time of Discharge Left AMA Procedures XRay, CTs & MRIs Date of Service: 03/22/17 1153 PROCEDURE: CT BRAIN WITHOUT CONTRAST ([id number]) IMPRESSION: 1. No acute intracranial abnormality. 2. Possible subacute left pontine infarct. This could also represent artifact. Stroke protocol MRI may be helpful for further assessment. Dictated by: Simba Grullon M.D. on 03/22/2017 at 12:34 Approved by: Simba Grullon M.D. on 03/22/2017 at 12:35 ECG 12 Lead NSR at [address] elevation/depression Brief History 46 year old male with Coronary artery disease, type II diabetes mellitus, CHF, stroke (resulting in left hand weakness which resolved), AL, hypertension, frequent ED visits due to angina and multiple cardiac stents presents who continues to smoke daily presents with report of acute syncope followed by left facial and arm numbness and right leg weakness. He woke this morning drenched in sweat and not feeling well. He went out to the yard and smoked a cigarette and after a while felt back to "normal". He went in and had breakfast and while still feeling well went back outside to smoke again. He was sitting down smoking and stood up when suddenly felt a severe sharp pain in his right groin which caused his to bend over. He then felt lightheaded and passed out. He woke up with his face on the grass. He thinks he was out for only a few seconds although he is not absolutely sure. He then went inside and slept for couple of hours but when he woke up he felt significant numbness in his left hand and left side of the face. He tried to stand up and noted significant weakness and lack of coordination in his right leg. With these symptoms he presented to the ED although he says by now most of his symptoms have now almost completely resolved. As he was getting out of his car to enter the ED he had another episode of severe right inguinal pain which almost caused him to pass out but he didn't. He now reports a significant neck pain and some generalized headache and nausea. He feels his left arm is mildly weak but otherwise denies any other complaints. Hospital Course Notified that patient abruptly decided to leave AMA on the morning of 03/23/17 and not waiting to be seen or examined. Hospital course and plan of action was as detailed in my H&P from 03/22/17 with the exception that MRI was cancelled due to patient being "too large" for our MRI machine. I did change the imaging order to CTA of brain and cervical CT but patient left AMA prior to these results. Per nursing report patient did not show any neurologic deficits prior to leaving AMA but as noted I did not have the opportunity to examine him before his departure. # Acute Syncope. Present on admission - consistent with classical vasovagal reaction in setting of severe right inguinal pain - he has had extensive cardiac workup and workup for syncope as recently as December 2016 and so I will not pursue any further significant workup of this syncope other than placing him on Tele for now - check chest x-ray # Acute left upper extremity and right lower extremity weakness and transient numbness of left UE. - given history of prior stroke and multiple risk factor we will pursue further stroke workup at this point although I suspect that symptoms may be related to a cervical radiculopathy or nerve compression given report of neck pain after syncope. - limited echo ordered but pt left AMA prior to completion - continued with home dose Aspirin, Plavix, and Statin - permissive hypertension for now - PT/OT evaluation # Acute right inguinal pain, present on admission. Ongoing - Unclear etiology - CT abdomen/pelvis unremarkable. # Acute hyponatremia. Present on admission. Resolved - likely due to dehydration and pre-renal state - held home dose diuretics during this hospital. # Coronary artery disease s/p 9 stents, chronic and presumed stable. - EKG showing no ischemic changes - continued antiplatelet and Statin # History of hypertension. Currently stable - held home BP meds for now until stroke workup complete and negative # Diabetes mellitus type 2, - continued with home dose Insulin # Nicotine Dependence - debt counselor, discussed cessation and encouraged - nicotine patch daily # Chronic pain on narcotics - documentations of narcotic seeking behavior and will be closely monitored - resumed home dosing of oral pain medications - IV morphine prn for current neck pain was ordered # Obesity BMI 41.1 - discussed weight loss and exercise coupled with healthy eating # BPH, chronic. stable - continued with home meds # History of depression. Stable - home meds. Exam Vital Signs (Last) Date Time Temp Pulse Resp B/P Pulse Ox O2 Delivery O2 Flow Rate FiO2 03/23/17 11:10 36.7 63 18 143/87 96 Room Air Test 03/22/17 11:50 03/22/17 13:31 03/23/17 05:00 Neutrophils (%) (Auto) 62.2% (40-74) Lymphocytes (%) (Auto) 28.5% (14-46) Monocytes (%) (Auto) 6.9% (4-12) Eosinophils (%) (Auto) 1.8% (0-5) Basophils (%) (Auto) 0.4% (0-3) Prothrombin Time 9.9sec (8.1-12.5) Prothromb Time International Ratio 0.93ratio Activated Partial Thromboplast Time 28.5sec (22.8-33.0) Total Bilirubin 0.5mg/dL (0.0-1.2) Aspartate Amino Transf (AST/SGOT) 16U/L (0-50) Alanine Aminotransferase (ALT/SGPT) 15U/L (0-44) Alkaline Phosphatase 120U/L (25-150) Troponin T 0.010ug/L (0.0-0.011) Total Protein 7.3g/dL (6.4-8.4) Albumin 3.7g/dL (3.4-5.0) Hold Pereyra Top Tube Received (Received) Urine Color Yellow (YELLOW) Urine Appearance Clear (CLEAR,HAZY) Urine pH 6.0 (5.0-8.0) Urine Specific [place] 1.010 (1.003-1.035) Urine Protein Negativemg/dL (NEG,TRACE) Urine Glucose (UA) 1000mg/dL (NEGATIVE) Urine Ketones Negativemg/dL (NEGATIVE) Urine Occult Blood Negative (NEGATIVE) Urine Nitrite Negative (NEGATIVE) Urine Bilirubin Negative (NEGATIVE) Urine Urobilinogen Normalmg/dL (NORMAL) Urine Leukocyte Esterase Negative (NEGATIVE) Urine RBC 0-2/hpf (0-2) Urine WBC 0-5/hpf (0-5) Urine Epithelial Cells Occasional/hpf (NONE-MOD) Urine Crystals None seen (NONE SEEN) Urine Bacteria None/hpf (NONE-FEW) Urine Hyaline Casts None/lpf (NONE) Urine Granular Casts None seen (NONE SEEN) Urine Waxy Casts None seen (NONE SEEN) Urine Red Blood Cell Casts None seen (NONE SEEN) Urine White Blood Cell Casts None seen (NONE SEEN) Urine Mucus None seen (None Seen) Urine Trichomonas None seen (NONE SEEN) Urine Yeast None (NONE SEEN) Urinalysis Comment None Urine Culture Reflexed Not indicated White Blood Count 7.6th/mm3 (3.8-10.1) Red Blood Count 4.42mil/mm3 (4.40-5.80) Hemoglobin 13.1g/dL (13.8-17.2) Hematocrit 38.7% (41.0-50.0) Mean Corpuscular Volume 87.6fL (81-100) Mean Corpuscular Hemoglobin 29.6pg (27.0-35.0) Mean Corpuscular Hemoglobin Concent 33.9% (32.0-37.0) Red Cell Distribution Width 13.4% (12.3-15.4) Platelet Count 210bil/L (150-400) Sodium Level 135mEq/L (134-144) Potassium Level 4.3mEq/L (3.5-5.2) Chloride Level 101mEq/L (97-108) Carbon Dioxide Level 20mmol/L (18-29) Blood Urea Nitrogen 16mg/dL (6-24) Creatinine 0.89mg/dL (0.76-1.27) Estimat Glomerular Filtration Rate 97mL/min (>59) Glucose Level 375mg/dL (60-99) Calcium Level 8.6mg/dL (8.5-10.1) Magnesium Level 2.1mg/dL (1.6-2.6) Triglycerides Level 406mg/dL (0-149) Cholesterol Level 142mg/dL (100-199) LDL Cholesterol, Calculated 29.800mg/dL (0-99) VLDL Cholesterol 81.200mg/dL HDL Cholesterol 31mg/dL (>39) Cholesterol/HDL Ratio 4.58 (0.0-4.4) Discharge Medications Discharge Medications Allopurinol (Allopurinol) 300 Mg Tablet 300 MG PO HS (Reported) Aspirin (Aspirin) 81 Mg Tablet 81 MG PO QAM (Reported) Atorvastatin Calcium (Atorvastatin Calcium) 10 Mg Tablet 10 MG PO HS Prescribed by: PAOLO CARPENTER MD Clopidogrel (Clopidogrel) 75 Mg Tablet 75 MG PO QAM (Reported) Doxazosin (Cardura) 4 Mg Tablet 8 MG PO QAM (Reported) Finasteride (Finasteride) 5 Mg Tablet 5 MG PO QAM (Reported) Fluoxetine (Fluoxetine) 40 Mg Capsule 40 MG PO QAM (Reported) Furosemide (Furosemide) 40 Mg Tablet 40 MG PO QAM (Reported) Gabapentin (Gabapentin) 600 Mg Tablet 3,600 MG PO QAM (Reported) Ibuprofen (Ibuprofen) 200 Mg Capsule 800 MG PO QAM (Reported) Insulin Glargine (Lantus U100 Insulin Vial) 100 Unit/Ml Vial 80 UNIT SUBQ BID ( Reported) Insulin Regular, Human (HUMulin-R U100 Insulin Vial) 100 Unit/1 Ml Vial 40-60 UNIT SUBQ BIDWM (Reported) BREAKFAST AND DINNER Insulin Regular, Human (HUMulin-R U100 Insulin Vial) 100 Unit/1 Ml Vial 2-20 UNIT SUBQ ACHS (Reported) SLIDING SCALE Isosorbide MN ER (Isosorbide MN ER) 30 Mg Tab.er.24h 30 MG PO QAM (Reported) Lisinopril (Lisinopril) 2.5 Mg Tablet 2.5 MG PO QAM (Reported) Metoprolol Succinate ER (Metoprolol Succinate ER) 25 Mg Tab.er.24h 25 MG PO QAM (Reported) Nicotine 21 mg/24 hr Patch (Nicotine 21 mg/24 hr Patch) 1 Each Patch.dysq 1 PATCH TRANSDERM QAM (Reported) Pantoprazole DR (Pantoprazole DR) 40 Mg Tablet.dr 40 MG PO QAM (Reported) Potassium Chloride ER (Potassium Chloride ER) 20 Meq Tablet.er 20 MEQ PO QAM ( Reported) TAKE WITH FOOD Tamsulosin ER (Tamsulosin ER) 0.4 Mg Cap.er.24h 0.8 MG PO QAM (Reported) As needed Acetaminophen (Acetaminophen) 500 Mg Tablet 500-1,000 MG PO Q6H PRN PRN For Pain (Reported) Albuterol HFA (Proair HFA) 8.5 Gm Hfa.aer.ad 2 PUFFS INHALATION QID PRN PRN For Shortness of Breath (Reported) Nitroglycerin SL (Nitroglycerin SL) 0.4 Mg Tab.subl 0.4 MG SL Q5MIN PRN PRN For Chest Pain (Reported) Oxycodone HCl/Acetaminophen (Endocet 10-325 mg Tablet) 1 Each Tablet 1 EACH PO QID PRN PRN For Pain (Reported) Triamcinolone Acet (Triamcinolone Acetonide Cream) 1 Applic/0.25 Gm Cr 1 APPLIC EXT DAILY PRN PRN DRY PATCHES (Reported) TO FEET AFTER SHOWER Followup Plan Disposition: Left AMA copies to: Santiago Funez MD, Masoud March 23, 2017 14:34
== END 2017-03-23 11:15 | disposition left against medical advice (07) ==
LOC: SED 11:35 → MPC 14:36 → INTOOBSV 14:36
PROVIDERS: ADMIT Internal Medicine; ATTEND Internal Medicine
DX: R55 Syncope and collapse (principal); R53.1 Weakness; R20.0 Anesthesia of skin; I63.9 Cerebral infarction, unspecified; R10.9 Unspecified abdominal pain; E87.1 Hypo-osmolality and hyponatremia; I25.10 Atherosclerotic heart disease of native coronary artery without angina pectoris; I11.0 Hypertensive heart disease with heart failure; E11.40 Type 2 diabetes mellitus with diabetic neuropathy, unspecified; F17.210 Nicotine dependence, cigarettes, uncomplicated; G89.4 Chronic pain syndrome; N40.0 Benign prostatic hyperplasia without lower urinary tract symptoms; F32.9 Major depressive disorder, single episode, unspecified; E66.9 Obesity, unspecified; Z68.41 Body mass index [BMI] 40.0-44.9, adult; E78.5 Hyperlipidemia, unspecified; K21.9 Gastro-esophageal reflux disease without esophagitis; Z86.73 Personal history of transient ischemic attack (TIA), and cerebral infarction without residual deficits; G43.909 Migraine, unspecified, not intractable, without status migrainosus; Z95.5 Presence of coronary angioplasty implant and graft; Z86.718 Personal history of other venous thrombosis and embolism; F11.90 Opioid use, unspecified, uncomplicated; Z76.5 Malingerer [conscious simulation]; I25.2 Old myocardial infarction; J44.9 Chronic obstructive pulmonary disease, unspecified; I50.9 Heart failure, unspecified; Z79.02 Long term (current) use of antithrombotics/antiplatelets; Z79.01 Long term (current) use of anticoagulants; Z79.4 Long term (current) use of insulin; Z79.82 Long term (current) use of aspirin; Z79.51 Long term (current) use of inhaled steroids
CPT/HCPCS: 36415; 70450; 71020; 74177; 80048; 80053; 80061; 81000; 82948; 83036; 83735; 84484; 85025; 85027; 85610; 85730; 92610; 93005; 93880; 96361; 96372; 96374; 96376; 97161; 99285; G0378; J1644; J1815; J2270; J7030; Q9967

== ENCOUNTER 2017-04-20 14:38 | Inpatient (IN) | payer OTHER, MEDICAID ==
[~2017-04-20] VITALS: Ht 172.7 cm; Wt 124.6 kg
[2017-04-20] VITALS (7 sets, daily range): BP systolic 99–167; BP diastolic 48–104; PULSE 55–77; RESP 16–20; O2SAT 97–100
[~2017-04-20 14:38] MED LIST changes: +ACET-171 PO; +ALLO300T2 PO; +DOXA4TAB2 PO; +FLUO40CA PO; +FURO40TA4 PO; -GABA-502 PO; +GABA600T2 PO; +IBUP200C PO; +ISOS30TA4 PO; +KEN25CR EXT; +LISI2.5T PO; -LOPE2CAP PO; +METO25TA99 PO; +NICO1PAT16 TRANSDERM; -ONDA8TAB10 PO; -PANT20TA2 PO; +PANT40TA3 PO; +POTA-62 PO; -PRAS10TA5 PO; -PROM25SU8 RC
[2017-04-20] MEDS ORDERED: Ondansetron 2 mg/mL 2 mL Inj ONE (14:51)
[2017-04-20] MEDS ORDERED: Ondansetron 2 mg/mL 2 mL Inj IVPUSH PRN (15:00)
[2017-04-20] MEDS ORDERED: Alum-Mag Hydrox-Simeth 30 mL Suspension PO PRN (15:00)
[2017-04-20] MEDS ORDERED: Senna-Docusate 8.6-50 mg Tablet PO PRN (15:00)
[2017-04-20] MEDS ORDERED: Polyethylene Glycol (PEG) 17 Gm Powder PO PRN (15:00)
[2017-04-20] MEDS ORDERED: Atropine 1 mg/10 mL (Code) Syringe IVPUSH PRN (15:00)
--- NOTE | 2017-04-20 15:11 | ED.REPORT ---
HPI-Chest Pain 40 and Over Date of Service Apr 20, 2017 ED Provider: History of Present Illness: 47-year-old male here for chest pain and seizure. 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 He was kneeling over and gardening at the time it happens. He did fall forward but not from a significant height.. He has had a headache since the seizure frontal and behind his eyes. He is light sensitive. When he awoke from his seizure he complained of left chest pain radiating to his neck and under his arm. He took 2 aspirin and 2 Tylenol. He has had a seizure one year ago and is not on any anti-seizure medicines. He has 9 stents and history of a heart attack one year ago when his last seizure was. He is a diabetic his blood sugars in the 200s this morning he took his Lantus and Humalog and upon arrival to [facility]. He takes Plavix. He is nauseous. Denies drug use Nursing Notes Stated Complaint: CHEST PRESSURE, SEIZURE Chief Complaint: Chest Pain Allergies: Coded Allergies: Honey Bee (Verified Allergy, Severe, anaphylaxis, 01/20/17) Penicillins (Verified Allergy, Severe, SWELLING, HIVES, ITCHING, 03/22/17) TAPE (Verified Allergy, Mild, blisters, 01/20/17) hydromorphone (Verified Adverse Reaction, Intermediate, HALLUCINATIONS, "HIGH", 03/22/17) sumatriptan (Verified Adverse Reaction, Intermediate, CONVULSIONS, SHAKES , 03/22/17) Scheduled Allopurinol (Allopurinol) 300 Mg Tablet 300 MG PO HS Aspirin (Aspirin) 81 Mg Tablet 81 MG PO QAM Atorvastatin (Lipitor) 80 Mg Tablet 80 MG PO HS Clopidogrel (Clopidogrel) 75 Mg Tablet 75 MG PO QAM Doxazosin (Cardura) 4 Mg Tablet 8 MG PO QAM Finasteride (Finasteride) 5 Mg Tablet 5 MG PO QAM Fluoxetine (Fluoxetine) 40 Mg Capsule 40 MG PO QAM Furosemide (Furosemide) 40 Mg Tablet 40 MG PO QAM Gabapentin (Gabapentin) 600 Mg Tablet 3,600 MG PO QAM Ibuprofen (Ibuprofen) 200 Mg Capsule 800 MG PO BIDWM Insulin Glargine (Lantus U100 Insulin Vial) 100 Unit/Ml Vial 80 UNIT SUBQ BID Insulin Regular, Human (HUMulin-R U100 Insulin Vial) 100 Unit/1 Ml Vial 40 UNIT SUBQ BIDWM BREAKFAST AND DINNER Insulin Regular, Human (HUMulin-R U100 Insulin Vial) 100 Unit/1 Ml Vial 2-20 UNIT SUBQ ACHS SLIDING SCALE Isosorbide MN ER (Isosorbide MN ER) 60 Mg Tab.er.24h 60 MG PO QAM Lisinopril (Lisinopril) 2.5 Mg Tablet 2.5 MG PO QAM Metoprolol Succinate ER (Metoprolol Succinate ER) 25 Mg Tab.er.24h 25 MG PO QAM Nicotine 21 mg/24 hr Patch (Nicotine 21 mg/24 hr Patch) 1 Each Patch.dysq 1 PATCH TRANSDERM QAM Oxycodone HCl/Acetaminophen (Endocet 10-325 mg Tablet) 1 Each Tablet 2 EACH PO BID Pantoprazole DR (Pantoprazole DR) 40 Mg Tablet.dr 40 MG PO QAM Potassium Chloride ER (Potassium Chloride ER) 20 Meq Tablet.er 20 MEQ PO QAM TAKE WITH FOOD Tamsulosin ER (Tamsulosin ER) 0.4 Mg Cap.er.24h 0.8 MG PO QAM Scheduled PRN Acetaminophen (Acetaminophen) 500 Mg Tablet 500-1,000 MG PO Q6H PRN PRN For Pain Albuterol HFA (Proair HFA) 8.5 Gm Hfa.aer.ad 2 PUFFS INHALATION QID PRN PRN For Shortness of Breath Loperamide (Loperamide) 2 Mg Tablet 2 MG PO Q4H PRN PRN For Diarrhea or Loose Stool Nitroglycerin SL (Nitroglycerin SL) 0.4 Mg Tab.subl 0.4 MG SL Q5MIN PRN PRN For Chest Pain Triamcinolone Acet (Triamcinolone Acetonide Cream) 1 Applic/0.25 Gm Cr 1 APPLIC EXT DAILY PRN PRN DRY PATCHES TO FEET AFTER SHOWER General Time Seen by MD: 14:57 Chief Complaint Chest pain, Other (seizure) Hx Obtained From: Patient, EMS Arrived By: Ambulance Sudden in Onset?: Yes Onset Occurred: Just prior to arrival Symptom Duration: Since onset Quality: Pressure Radiation: : Neck: Shoulder left Severity: Current: Moderate Severity: Maximum: Moderate Recent Healthcare: Recent doctor visit Similar Sx Previous: Yes Past Medical History Past Medical History Notes: Patient states has had "nine stents" placed at [facility] For CP 08/01/2016, 08/04/16, and 08/26/16 Multiple ED visits for CP, admitted for chest pain 11/21/2016 with hospitalist diagnosis of narcotic seeking behavior Echocardiogram November 15-EF 60-65%, no focal wall motion Seen in the ED 01/14/2017 for chest pain abnormalities, no significant valvular disease Past Medical History CAD - multiple stents, cardiac caths 02/14, 03/12, 04/11, ad 04/17 w/stent placed to proximal LAD overlapping prior stent and "plavix non-responder" Syncope Type two diabetes with neuropathy Chronic back and leg pain Lower extremity DVT "years ago" per patient, details unclear History of migraines BPH Kidney Stones On Warfarin and Plavix HTN [place] 2014 Concern for TIA October 2016, MRI/MRA negative Reports: COPD, Congestive heart failure, Stroke Reports: Heroin use Past Surgical History Shoulder surgery (joint replacement) Left knee surgery Ganglion cyst in right hand Cardiac stents ("x9" - at Prov) Reports: Cholecystectomy Family History Both of the patient's parents are still alive Smoking History Current Every Day Smoker Social History Alcohol Use: Denies alcohol use Drug Use: Denies drug use Other Social History: Good social support, , Local resident 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 Physical Exam Initial Vital Signs Vital Signs (First) Date Time Temp Pulse Resp B/P Pulse Ox O2 Delivery O2 Flow Rate FiO2 04/20/17 14:45 37.1 76 18 167/104 97 Room Air Initial VS: Reviewed, Vital signs normal General/Constitutional: Awake, Alert, No acute distress, Well appearing Respiratory / Chest: No respiratory distress, No wheezing, No stridor, No chest tenderness Rales / Rhonchi: Positive: Rales L base Cardiovascular: Heart rate NL, Regular rhythm, Heart sounds NL, No murmurs, Peripheral circulation NL, Pulses = bilaterally, No gross BP differential Tenderness/Guarding/Rebound: Positive: Tender LLQ... (Moderate), Tender LUQ... (Moderate), Tender RLQ... (Moderate), Tender RUQ... (Mild) generalized tenderness Skin: Color NL, Warm, Dry, Turgor NL Neurologic: Oriented X3, Speech NL, No motor deficits, No sensory deficits Psychiatric: Affect NL, Mood NL Head / Eyes: Atraumatic, Normocephalic, PERRL, EOMI, No nystagmus, No periorbital redness, No periorbital swelling photophobia Interpretation & Diagnostics Lab Results Interpretation Result Diagram: 04/20/17 1442 04/20/17 1442 Test 04/20/17 14:42 White Blood Count 8.5th/mm3 (3.8-10.1) Red Blood Count 4.69mil/mm3 (4.40-5.80) Hemoglobin 13.9g/dL (13.8-17.2) Hematocrit 40.8% (41.0-50.0) Mean Corpuscular Volume 87.0fL (81-100) Mean Corpuscular Hemoglobin 29.6pg (27.0-35.0) Mean Corpuscular Hemoglobin Concent 34.1% (32.0-37.0) Red Cell Distribution Width 13.5% (12.3-15.4) Platelet Count 245bil/L (150-400) Neutrophils (%) (Auto) 62.6% (40-74) Lymphocytes (%) (Auto) 28.6% (14-46) Monocytes (%) (Auto) 7.2% (4-12) Eosinophils (%) (Auto) 1.1% (0-5) Basophils (%) (Auto) 0.4% (0-3) Prothrombin Time 9.8sec (8.1-12.5) Prothromb Time International Ratio 0.92ratio Sodium Level 132mEq/L (134-144) Potassium Level 4.1mEq/L (3.5-5.2) Chloride Level 94mEq/L (97-108) Carbon Dioxide Level 16mmol/L (18-29) Blood Urea Nitrogen 17mg/dL (6-24) Creatinine 1.06mg/dL (0.76-1.27) Estimat Glomerular Filtration Rate 79mL/min (>59) Glucose Level 563mg/dL (60-99) Calcium Level 9.2mg/dL (8.5-10.1) Magnesium Level 1.9mg/dL (1.6-2.6) Total Bilirubin 0.3mg/dL (0.0-1.2) Aspartate Amino Transf (AST/SGOT) 23U/L (0-50) Alanine Aminotransferase (ALT/SGPT) 18U/L (0-44) Alkaline Phosphatase 118U/L (25-150) Pro-B-Type Natriuretic Peptide 250.1pg/mL (0-121) Total Protein 7.7g/dL (6.4-8.4) Albumin 3.9g/dL (3.4-5.0) Thyroid Stimulating Hormone (TSH) 0.768uIU/mL (0.450-4.500) Ketones Negative (Negative) X-Ray Chest Interpretation Chest Xray Interpretation: 1442 PROCEDURE: X-RAY CHEST ONE VIEW, PORTABLE ([id number]) INDICATIONS: Chest pain. TECHNIQUE: One view of the chest was acquired. COMPARISON: [facility], CR, XR CHEST 2VW, 03/22/2017, 16:54. [facility], CR, XR CHEST 1VW (PORTABLE), 03/17/2017, 18:39. FINDINGS: Surgical changes and devices: None. Lungs and pleura: No pleural effusions or pneumothorax. Lungs are clear. Mediastinum: Mediastinal contours appear normal. Heart size is normal. Bones and chest wall: No suspicious bony lesions. Overlying soft tissues appear unremarkable. IMPRESSION: No acute cardiopulmonary disease. CT Head Interpretation PROCEDURE: CT BRAIN WITHOUT CONTRAST ([id number]) INDICATIONS: seizure, ROBERTS TECHNIQUE: Noncontrast 4.5 mm thick angled axial sections acquired from the foramen magnum to the vertex, with coronal reformats. COMPARISON: [facility], MR, MR SEIZURE BRAIN W&WO CON, 01/19/2017, 10:25. [facility], CT, CT BRAIN WO CON, 03/22/2017, 12:10. FINDINGS: Image quality: Excellent. CSF spaces: Basal cisterns are patent. No extra-axial fluid collections. Ventricles are normal in size and shape. Brain: No midline shift. No intracranial masses or hemorrhage. Haider-white matter interface is normal. Skull and face: Calvarium and visualized facial bones are intact, without suspicious lesions. Sinuses: Visualized sinuses and mastoids are clear. IMPRESSION: No acute intracranial abnormality. Re-Eval/Medical Decision Med Decision/Clinical Course [address] Domínguez. Hospitalist had seen patient from the beginning of his stay in the emergency room here at the ER was busy and he was called to help. Dr. Domínguez did not see patient but was consulted by myself. Dr. Funez and I saw the patient simultaneously. He admitted the patient floor Discharge & Departure Primary Impression: Chest pain Chest pain type: unspecified Qualified Code: R07.9 - Chest pain, unspecified Additional Impression: Seizure Disposition: ADMITTED TO HOSPITAL Referrals: Santiago Funez MD (PCP) EDSupervising Provider for APC: Zackary Domínguez MD Attending Statement I discussed the patient with the PA and agree with the plan as noted above. I did not personally see the patient during this visit, however all of the patient 's care was discussed with me. Massiel Pena Apr 20, 2017 15:11 Zackary Domínguez MD Apr 20, 2017 15:47 Santiago Funez MD (PCP) Massiel Pena Apr 20, 2017 15:11 Zackary Domínguez MD Apr 20, 2017 15:47
[2017-04-20 15:14] LABS: BASOPHILS % (AUTO) 0.4 % (0-3); EOSINOPHILS % (AUTO) 1.1 % (0-5); MONOCYTES % (AUTO) 7.2 % (4-12); Mean Corpuscular Hemoglobin 29.6 pg (27.0-35.0); NEUTROPHILS % (AUTO) 62.6 % (40-74); Platelet Count 245 bil/L (150-400)
[2017-04-20] MEDS ORDERED: 0.9% Sodium Chloride 1,000 ML IV ONE ×2 (15:20→16:50)
[2017-04-20 15:45] LABS: Magnesium 1.9 mg/dL (1.6-2.6)
[2017-04-20] MEDS ORDERED: levETIRAcetam 500 mg Tablet PO ONE (15:55)
[2017-04-20 16:00] LABS: TROPONIN T < 0.010 ug/L (0.0-0.011)
[2017-04-20 16:01] LABS: Creatine Kinase 119 U/L (21-232)
[2017-04-20 16:20] LABS: INR 0.92 ratio
[2017-04-20] MEDS: Heparin 5,000 Unit/mL Inj SUBQ SCH (16:30)
[2017-04-20] MEDS ORDERED: LOPE2TAB32 PO (16:31)
[2017-04-20] MEDS ORDERED: ATOR80TA PO (16:32)
[2017-04-20] MEDS ORDERED: ISOS60TA2 PO (16:42)
[2017-04-20] MEDS ORDERED: Insulin Human REGular Inj 100 UNIT in 0.9% Sodium Chloride-Pha MIX 100 ML IV SCH (16:43)
[2017-04-20] MEDS ORDERED: Dextrose 10% 1,000 ML IV PRN (16:43)
--- NOTE | 2017-04-20 17:01 | PCM.HPMED ---
Subjective Date of Service Apr 20, 2017 Primary Provider: Admitting Physician: Jeff Oconnor MD Primary Care Physician: Santiago Funez MD Attending Physician: Jeff Oconnor MD Chief Complaint: Syncope History of Present Illness: 47-year-old male with a history of severely uncontrolled diabetes, CAD with MD in 2015 and 9 stents, COPD, heart failure, history of migraines, hypertension, and more than [id number] history of smoking presents to the emergency department after syncopal episode at home. The patient remembers becoming lightheaded, seeing stars, and then everything getting dark. Halos with his face in the gravel and scrapes on his knees. He was told by his niece that he was shaking and he remembers being disoriented upon awakening. The patient's last episode of this was 3 months ago. He previously had seizures as child and was on medication until he was 16 at which point he discontinued the medication. He has not recently been on any medication or has been evaluated by neurology. The patient denies incontinence of latter bowel associated with this event, stating S [place] because a water bottle today spelled on himself. Patient's history is also positive for prior heroin use although he has been off of this for some time and is no longer taking methadone. Patient' s diabetes had been extremely difficult to control the patient is currently on Lantus 80 units twice a day as well as Humulin R 40-60 units with meals 3 times a day. Patient denies any recent illness, fever, vomiting, chest pain, change in taste or loss of sensation, or postprandial nausea. However, he is currently experiencing nausea, headache, abdominal pain, and neuropathy pain. Emergency department the patient was worked up with CT scan that is currently pending as well as x-ray that is also currently pending. Lab work revealed an anion gap metabolic acidosis lactate is pending. Glucose was found to be 563. Review of Systems: Complete review of systems performed; pertinent positives negative as per history of present illness Allergies Coded Allergies: Honey Bee (Verified Allergy, Severe, anaphylaxis, 01/20/17) Penicillins (Verified Allergy, Severe, SWELLING, HIVES, ITCHING, 03/22/17) TAPE (Verified Allergy, Mild, blisters, 01/20/17) hydromorphone (Verified Adverse Reaction, Intermediate, HALLUCINATIONS, "HIGH", 03/22/17) sumatriptan (Verified Adverse Reaction, Intermediate, CONVULSIONS, SHAKES , 03/22/17) Home Medications Allopurinol (Allopurinol) 300 Mg Tablet 300 MG PO HS Aspirin (Aspirin) 81 Mg Tablet 81 MG PO QAM Atorvastatin Calcium (Atorvastatin Calcium) 10 Mg Tablet 10 MG PO HS Clopidogrel (Clopidogrel) 75 Mg Tablet 75 MG PO QAM Doxazosin (Cardura) 4 Mg Tablet 8 MG PO QAM Finasteride (Finasteride) 5 Mg Tablet 5 MG PO QAM Fluoxetine (Fluoxetine) 40 Mg Capsule 40 MG PO QAM Furosemide (Furosemide) 40 Mg Tablet 40 MG PO QAM Gabapentin (Gabapentin) 600 Mg Tablet 3,600 MG PO QAM Ibuprofen (Ibuprofen) 200 Mg Capsule 800 MG PO QAM Insulin Glargine (Lantus U100 Insulin Vial) 100 Unit/Ml Vial 80 UNIT SUBQ BID Insulin Regular, Human (HUMulin-R U100 Insulin Vial) 100 Unit/1 Ml Vial 40-60 UNIT SUBQ BIDWM BREAKFAST AND DINNER Insulin Regular, Human (HUMulin-R U100 Insulin Vial) 100 Unit/1 Ml Vial 2-20 UNIT SUBQ ACHS SLIDING SCALE Isosorbide MN ER (Isosorbide MN ER) 30 Mg Tab.er.24h 30 MG PO QAM Lisinopril (Lisinopril) 2.5 Mg Tablet 2.5 MG PO QAM Metoprolol Succinate ER (Metoprolol Succinate ER) 25 Mg Tab.er.24h 25 MG PO QAM Nicotine 21 mg/24 hr Patch (Nicotine 21 mg/24 hr Patch) 1 Each Patch.dysq 1 PATCH TRANSDERM QAM Pantoprazole DR (Pantoprazole DR) 40 Mg Tablet.dr 40 MG PO QAM Potassium Chloride ER (Potassium Chloride ER) 20 Meq Tablet.er 20 MEQ PO QAM TAKE WITH FOOD Tamsulosin ER (Tamsulosin ER) 0.4 Mg Cap.er.24h 0.8 MG PO QAM Acetaminophen (Acetaminophen) 500 Mg Tablet 500-1,000 MG PO Q6H PRN PRN For Pain Albuterol HFA (Proair HFA) 8.5 Gm Hfa.aer.ad 2 PUFFS INHALATION QID PRN PRN For Shortness of Breath Nitroglycerin SL (Nitroglycerin SL) 0.4 Mg Tab.subl 0.4 MG SL Q5MIN PRN PRN For Chest Pain Oxycodone HCl/Acetaminophen (Endocet 10-325 mg Tablet) 1 Each Tablet 1 EACH PO QID PRN PRN For Pain Triamcinolone Acet (Triamcinolone Acetonide Cream) 1 Applic/0.25 Gm Cr 1 APPLIC EXT DAILY PRN PRN DRY PATCHES TO FEET AFTER SHOWER PMH CAD - multiple stents, cardiac caths 02/14, 03/12, 04/11, ad 04/17 w/stent placed to proximal LAD overlapping prior stent and "plavix non-responder" Syncope Type two diabetes with neuropathy Chronic back and leg pain Lower extremity DVT "years ago" per patient, details unclear History of migraines BPH Kidney Stones On Warfarin and Plavix HTN MD 2014 Concern for TIA October 2016, MRI/MRA negative Reports: COPD, Congestive heart failure, Stroke Reports: Heroin use Patient states has had "nine stents" placed at [facility] 08/01/2016, 08/04/16, and 08/26/16 Multiple ED visits for CP, admitted for chest pain 11/21/2016 with hospitalist diagnosis of narcotic seeking behavior Echocardiogram November 15-EF 60-65%, no focal wall motion Surgical History Shoulder surgery (joint replacement) Left knee surgery Ganglion cyst in right hand Cardiac stents ("x9" - at Prov) Reports: Cholecystectomy Family History No family history of seizures Both parents and second-generation relatives have diabetes Social History Hx Alcohol Use: No (on holidays; social occassional) Hx Substance Use: No Hx Tobacco Use: Yes Smoking Status: Current Every Day Smoker (over 120 pack years; currently smoking half pack day) Exam Vital Signs Vital Sign - Last Date Time Temp Pulse Resp B/P Pulse Ox O2 Delivery O2 Flow Rate FiO2 04/20/17 16:46 63 18 116/80 98 Room Air 04/20/17 14:45 37.1 Exam General: Obese male in mild distress with wet cloth over HEENT: PERRLA, EOMI, cranial nerves II through XII intact Lymph: No lymphadenopathy Cardiac: Regular rate and rhythm no murmurs rubs or gallops Respiratory: CTA bilaterally Abdomen: Soft, nondistended, nontender, obese, positive bowel sounds, laparoscopic scars are present Extremities: Leeann noted along the right lateral lower leg, pulses intact bilaterally Psych: Depressed, apathetic Neuro: Complete neurological evaluation performed; CN II through XII intact, sensation intact throughout including soles of the feet and palms of the hands Skin: No rashes Lab and Diagnostics Result Diagram: 04/20/17 1442 04/20/17 1442 X-Rays, CTs and MRIs Imaging pending Cardiac Echo Impressions Echocardiogram 01/19/17 Sinus bradycardia; heart rate is 51-55 bpm. Normal LV size. Normal wall thickness; there is basal inferior, mid-inferior and basal inferoseptal hypokinesis. Otherwise normal wall motion. EF is 60- 65%. Stage I diastolic dysfunction. No significant valvular abnormalities. Compared to prior study 11/22/2016 focal wall motion abnormalities are newly appreciated. However, technically study is much better this time versus last time, so [id number] comparison is difficult. Pharmacologic Stress test 1. Probable normal myocardial perfusion study although with reduced sensitivity because of marginal image quality from the patient's body habitus. 2. Mild fixed inferolateral perfusion defect that resolves on prone imaging most likely consistent with diaphragmatic attenuation. There is no obvious myocardial ischemia or previous myocardial infarction and thus this is a low- risk study. 3. Normal LV systolic function without any regional wall motion abnormality. 4. Persistent chronic chest discomfort but no clear ECG evidence of ischemia on pharmacologic stress testing. 5. Compared to the previous myocardial perfusion study of 09/11/2005, image quality on that exam was likewise quite poor, again with some scattered defects and chest tightness with Lexiscan administration. Overall, there has been no clear change since the previous study. Dictated by: Jeff Kaye M.D. on 10/24/2016 at 15:23 Assessment & Plan 47-year-old male with a past history of seizure activity presents after syncopal episode with reported shaking. Patient awoke with a space in the dirt still tremulousness and having a hard time remembering events. Patient did not want to be admitted but agreed to stay under observation Syncope in patient with hx suspicious for chronic seizures; present on admission ; ongoing -Patient had seizures as a boy, and intermittently through adulthood with his last seizure 3 months ago; no meds after childhood -Patient started on loading dose of Keppra 1500 mg once -Start Keppra 500 mg twice a day tomorrow and titrate up -Awaiting CT of the head -Consider additional cerebral/vascular imaging tomorrow -Last ECHO December 2016: see above -Carotid doppler -Tele Severe uncontrolled type II diabetes with peripheral neuropathy and gastroparesis; present on admission; ongoing -Patient has intermittent nausea questionable for gastroparesis and is on very high doses of insulin -BG greater than 560; starting non-dka insulling gtt -Start patient on Lantus 80 mg in the evening -High correctional -Diabetic diet -A1c pending Anion gap metabolic acidosis; present on admission; ongoing -AG 20 on presentation -Lactic acid pending -Serum ketones pending -Fluids as above Reported chronic heart failure; present on admission; stable - Continue home medications including diuretics CAD/MD with 9 stents and reported chronic CP; present on admission; ongoing -No reported CP currently; pt on Plavix -Last ECHO revealed early diastolic dysfunction -Stress test in 10/12 was "probably normal" -Continue plavix and ASA -Troponin is negative History of DVT; present on admission; stable -Patient reportedly on warfarin although not therapeutic -Will restart warfarin once this history is elucidated -Lovenox for prophylaxis Acute on chronic Migraines: Present on admission; ongoing -Patient has a history of TIAs and CAD which precludes him from receiving sumatriptan -Patient given Tylenol Disposition: Patient is being admitted to [facility] on inpatient status for the expected length of stay greater than 2 midnights due to severity of presentation , duration treatment, risk of adverse events. Pain Evaluation: Adequate Pain Control VTE Prophylaxis: Sub-Q Enoxaparin Resuscitation Status: CPR: Attempt Resuscitation Attending Statement The patient was seen and examined together with Dr. Oliveros on 04/20/2017 and I agree with the history, exam and plan as outlined in the note above. . copies to: Santiago Funez MD, Michael R DO Apr 20, 2017 17:01 Jeff Oconnor MD Apr 20, 2017 19:56
[2017-04-20] MEDS: Sodium Chloride LOK Flush 10 mL Syringe IVFLUSH SCH (17:47)
--- NOTE | 2017-04-20 18:09 | DRSVH ---
PROCEDURE: CT BRAIN WITHOUT CONTRAST ([id number]) INDICATIONS: seizure, ROBERTS TECHNIQUE: Noncontrast 4.5 mm thick angled axial sections acquired from the foramen magnum to the vertex, with c oronal reformats. COMPARISON: [facility], MR, MR SEIZURE BRAIN W&WO CON, 01/19/2017, 10:25. [facility], CT, CT BRAIN WO CON, 03/22/2017, 12:10. FINDINGS: Image quality: Excellent. CSF spaces: Basal cisterns are patent. No extra-axial fluid collections. Ventricles are normal in size and shape. Brain: No midline shift. No intracranial masses or hemorrhage. Haider-white matter interface is norm al. Skull and face: Calvarium and visualized facial bones are intact, without suspicious lesions. Sinuses: Visualized sinuses and mastoids are clear. IMPRESSION: No acute intracranial abnormality. Dictated by: Nicholas Zamora M.D. on 04/20/2017 at 18:05 Approved by: Nicholas Zamora M.D. on 04/20/2017 at 18:07
[2017-04-20] MEDS: 0.9% Sodium Chloride 1,000 ML IV SCH (18:39)
--- NOTE | 2017-04-20 19:02 | DRSVH ---
PROCEDURE: X-RAY CHEST ONE VIEW, PORTABLE ([id number]) INDICATIONS: Chest pain. TECHNIQUE: One view of the chest was acquired. COMPARISON: [facility], CR, XR CHEST 2VW, 03/22/2017, 16:54. [facility], CR, XR CHEST 1VW (PORTABLE), 03/17/2017, 18:39. FINDINGS: Surgical changes and devices: None. Lungs and pleura: No pleural effusions or pneumothorax. Lungs are clear. Mediastinum: Mediastinal contours appear normal. Heart size is normal. Bones and chest wall: No suspicious bony lesions. Overlying soft tissues appear unremarkable. IMPRESSION: No acute cardiopulmonary disease. Dictated by: Nicholas Zamora M.D. on 04/20/2017 at 19:00 Approved by: Nicholas Zamora M.D. on 04/20/2017 at 19:00
--- NOTE | 2017-04-20 19:08 | NUR ---
Admission male patient received to room 2004 at about 1715. pt alert and oriented. steady gait. ambulated from rney to bed. RA. IV with back flow of blood to IV bag of right chest PIV. IV line discarded and PIV flushed. IV Bolus given, and insulin infusion started. POC reviewed. call light in reach.
[2017-04-20] MEDS ORDERED: oxyCODONE-Acetamin 10-325 mg Tablet PO SCH (20:30)
[2017-04-20] MEDS: Insulin Human REGular (HUMulin-R) 100 Unit/mL 10 mL SUBQ SCH (22:00)
[2017-04-20] MEDS ORDERED: Insulin GLARgine 100 Unit/mL Syringe SUBQ SCH (22:00)
[2017-04-20 22:30] LABS: Creatine Kinase 95 U/L (21-232)
[2017-04-21] VITALS (9 sets, daily range): BP systolic 101–157; BP diastolic 59–91; PULSE 49–73; RESP 16–20; O2SAT 95–98
[2017-04-21] MEDS: Insulin Human REGular (HUMulin-R) 100 Unit/mL 10 mL SUBQ SCH ×5 (00:44→17:00)
[2017-04-21] MEDS: Insulin GLARgine 100 Unit/mL Syringe SUBQ SCH ×3 (00:45→20:44)
[2017-04-21] MEDS: Heparin 5,000 Unit/mL Inj SUBQ SCH ×4 (00:46→23:50)
[2017-04-21] MEDS: Sodium Chloride LOK Flush 10 mL Syringe IVFLUSH SCH ×3 (00:50→16:30)
[2017-04-21] MEDS: 0.9% Sodium Chloride 1,000 ML IV SCH ×3 (02:50→22:50)
[2017-04-21 03:01] LABS: BASOPHILS % (AUTO) 0.7 % (0-3); EOSINOPHILS % (AUTO) 2.4 % (0-5); MONOCYTES % (AUTO) 6.9 % (4-12); Mean Corpuscular Hemoglobin 29.9 pg (27.0-35.0); Mean Corpuscular Volume 88.7 fL (81-100); NEUTROPHILS % (AUTO) 48.3 % (40-74); Platelet Count 191 bil/L (150-400)
[2017-04-21] MEDS: HYDROmorphone 0.5 mg/0.5 mL iSecure Syringe IVPUSH PRN ×3 (03:54→14:06)
[2017-04-21 04:09] LABS: TROPONIN T 0.01 ug/L (0.0-0.011)
--- NOTE | 2017-04-21 04:28 | NUR ---
Pain/Anxiety During the 0000 vital signs, pt stated he wanted morphine for his head and neck pain. Provider paged. No response. Within the next hour, spouse and pt called several times to ask for the same and the provider was paged again. At 0230, pt stated that without morphine he was going to go AMA home. Provider paged again and provider, after speaking with charge entry ordered Dilaudid. Pt states that he is not allergic to Dilaudid but that he prefers morphine to Dilaudid as Dilaudid makes him "drunk." Pt reports relief from pain post analgesic administration.
[2017-04-21] MEDS: Pantoprazole 40 mg ER24 Tablet PO SCH (07:39)
[2017-04-21] MEDS: MeTOProlol XL 25 mg ER24 Tablet PO SCH (10:38)
--- NOTE | 2017-04-21 10:52 | NUR ---
Social Work Note: Screen Note Data& Assessment: EMR Reviewed. Bernardo Koenig is a 47 year old male admitted on 04/20/2017 for chest pain. [facility] and sees Santiago Funez MD for primary care. Pt lives in [place] with spouse and is independent at baseline. Per RN activity documentation, pt is independent in his room at this time. No discharge needs identified at this time. SW to continue to follow for MD orders and any pt needs. Plan: Anticipated discharge home via POV when medically ready. SW to continue to follow for MD orders and any pt needs. ANTHONY Banuelos
[2017-04-21] MEDS: levETIRAcetam 500 mg Tablet PO SCH ×2 (11:38→20:34)
--- NOTE | 2017-04-21 14:00 | NUR ---
Pt inappropriate pt making inappropriate comments to RN. Stating in front of his , daughter and mother "if it was ok with my I would have a threesome with you". Reminded pt his comments are inappropriate, pt verbalized understanding. Ongoing care.
[2017-04-21] MEDS: oxyCODONE-Acetamin 10-325 mg Tablet PO PRN ×3 (14:15→23:46)
[2017-04-21] MEDS ORDERED: Glucose 40% Oral Gel 15 Gm Tube PO PRN (17:45)
--- NOTE | 2017-04-21 18:56 | PCM.PNMED ---
Subjective Date of Service Apr 21, 2017 Subjective Overnight the patient almost left AMA due to his pain level but ultimately decided to stay and be treated. His vitals this morning were 36.6C, HR 64, RR 20 , BP 129/79, O2 98% on RA. This morning, he complains of crippling neck pain anytime he moves and accompanying headache. He denies any other symptoms and reports tolerating his Keppra without any issues. Exam Vital Signs Vital Sign - Last Date Time Temp Pulse Resp B/P Pulse Ox O2 Delivery O2 Flow Rate FiO2 04/21/17 12:57 36.6 49 20 132/80 97 Room Air Intake and Output 04/20/17 04/20/17 04/21/17 Cumulative From/Thru 15:00 23:00 07:00 04/20/17 14:45 - 04/21/17 06:27 Intake Total 400 ml 400 ml Balance 400 ml 400 ml Intake Oral 400 ml 400 ml # Voids 2 2 Exam General: Obese male laying still with eyes closed throughout the exam but responds appropriately HEENT: PERRLA, EOMI, membranes pink and moist without cobblestoning Neck: Diffusely tender, especially when patient attempts to look side to side, no lymphadenopathy or thyromegaly noted Cardiac: RRR, no murmurs/rubs/gallops Respiratory: CTA bilaterally, no wheezes/rales/rhonchi Abdomen: Soft, obese, nontender, positive bowel sounds, laparoscopic scars are present Extremities: Pulses intact in bilateral LE, no edema/clubbing/cyanosis Skin: Normal temperature and turgor. No rashes or ulcers noted. Neuro: CN II-XII intact, sensation and muscle strength fully intact in all extremities Psych: Apathetic and flat for most of the interview IVs and Medications Medications Reviewed: Medications were reviewed in detail Lab and Diagnostics Result Diagram: 04/21/17 0240 04/21/17 0240 X-Rays, CTs and MRIs Chest X-Ray 04/21 PROCEDURE: X-RAY CHEST ONE VIEW, PORTABLE ([id number]) IMPRESSION: No acute cardiopulmonary disease. Dictated by: Nicholas Zamora M.D. on 04/20/2017 at 19:00 Approved by: Nicholas Zamora M.D. on 04/20/2017 at 19:[address] 04/20 PROCEDURE: CT BRAIN WITHOUT CONTRAST ([id number]) IMPRESSION: No acute intracranial abnormality. Dictated by: Nicholas Zamora M.D. on 04/20/2017 at 18:05 Approved by: Nicholas Zamora M.D. on 04/20/2017 at 18:[address] 04/21 Pending read Cardiac Echo Impressions Echocardiogram 01/19/17 Sinus bradycardia; heart rate is 51-55 bpm. Normal LV size. Normal wall thickness; there is basal inferior, mid-inferior and basal inferoseptal hypokinesis. Otherwise normal wall motion. EF is 60- 65%. Stage I diastolic dysfunction. No significant valvular abnormalities. Compared to prior study 11/22/2016 focal wall motion abnormalities are newly appreciated. However, technically study is much better this time versus last time, so [id number] comparison is difficult. Pharmacologic Stress test 1. Probable normal myocardial perfusion study although with reduced sensitivity because of marginal image quality from the patient's body habitus. 2. Mild fixed inferolateral perfusion defect that resolves on prone imaging most likely consistent with diaphragmatic attenuation. There is no obvious myocardial ischemia or previous myocardial infarction and thus this is a low- risk study. 3. Normal LV systolic function without any regional wall motion abnormality. 4. Persistent chronic chest discomfort but no clear ECG evidence of ischemia on pharmacologic stress testing. 5. Compared to the previous myocardial perfusion study of 09/11/2005, image quality on that exam was likewise quite poor, again with some scattered defects and chest tightness with Lexiscan administration. Overall, there has been no clear change since the previous study. Dictated by: Jeff Kaye M.D. on 10/24/2016 at 15:23 Assessment & Plan 47-year-old male with a past history of seizure activity presents after syncopal episode with reported shaking and fall. Patient awoke in the dirt still tremulousness and having a hard time remembering events or his family. Patient did not want to be admitted but agreed to stay under observation. Syncope in patient with hx suspicious for chronic seizures; present on admission ; ongoing -Patient had seizures as a boy, and intermittently through adulthood with his last seizure 3 months ago; no meds after childhood -Patient started on loading dose of Keppra 1500 mg once -Keppra 500 mg twice a day, titrate up if needed -Awaiting CT of cervical spine; Brain CT is negative -Consider additional cerebral/vascular imaging tomorrow -Last ECHO 12/2016 with focal wallm otions abnormalities -Carotid doppler done 03/22/17 showed less than 50% stenosis bilaterally -Tele to monitor chest pain Severe uncontrolled type II diabetes with peripheral neuropathy and gastroparesis; present on admission; ongoing -Patient has intermittent nausea questionable for gastroparesis and is on very high doses of insulin -Lantus 40mg BID -Regular insulin 20 units at breakfast/dinner -High correctional scale -Diabetic diet and extensive dietary counseling done today -A1c still pending Anion gap metabolic acidosis; present on admission; ongoing -AG 20 on presentation -Lactic acid 1.7 -Serum ketones negative -Fluids at 100ml/hr, consider decrease depending on morning labs and PO intake Reported chronic heart failure; present on admission; stable - Continue home medications including diuretics CAD/[place] with 9 stents and reported chronic CP; present on admission; ongoing -No reported CP currently; pt on Plavix -Last ECHO revealed early diastolic dysfunction -Stress test in 10/12 was "probably normal" -Continue plavix and ASA -Troponin is negative History of DVT; present on admission; stable -Patient reportedly on warfarin although not therapeutic -Will restart warfarin once this history is elucidated -Lovenox for prophylaxis History of gout: present on admission, stable -Uric acid ordered -Continue allopurinol 300mg qHS Acute on chronic Migraines: Present on admission; ongoing -Patient has a history of TIAs and CAD which precludes him from receiving sumatriptan -Patient given Tylenol PRN Acetaminophen for mild pain when necessary. Bowel regimen Senna and MiraLAX scheduled and PRN. Zofran when necessary for nausea and vomiting. Disposition: Patient is being admitted to [facility] on inpatient status for the expected length of stay greater than 2 midnights due to severity of presentation , duration treatment, risk of adverse events. Pain Evaluation: Adequate Pain Control VTE Prophylaxis: Sub-Q Enoxaparin Resuscitation Status: CPR: Attempt Resuscitation Attending Statement The patient was seen and examined together with Dr. Lomeli on 04/21/2017 and I agree with the history, exam and plan as outlined in the note above. . Hussain Lomeli DO Apr 21, 2017 15:30 Jeff Oconnor MD Apr 22, 2017 20:24
--- NOTE | 2017-04-21 20:02 | NUR ---
BG Pt BG 240 at about 1700, aware, new order for high dose algorithm lispro. unable to give pt lispro dose at the time due to med not available. Oncoming RN made aware.
[2017-04-21] MEDS: Insulin LISPRO 300 Unit/3 mL Inj SUBQ SCH ×2 (20:43→21:58)
--- NOTE | 2017-04-21 20:46 | DRSVH ---
PROCEDURE: CT CERVICAL SPINE WITHOUT CONTRAST ([id number]) INDICATIONS: neck pain/limited ROM TECHNIQUE: Noncontrast 3 mm thick sections acquired from the skull base to the T4 level. Sagittal and coronal r eformats were then constructed. For radiation dose reduction, the following was used: automated exp osure control, adjustment of mA and/or kV according to patient size. COMPARISON: [facility], CT, CT CERVICAL SPINE WO CON, 05/05/2016, 17:16. FINDINGS: Image quality: Excellent. Bones: Prominent straightening of cervical curvature. There is extensive bridging osteophytes and lig amentous calcification present within the posterior and anterior aspect of the spine. Multiple disc s pace narrowing is also present. Soft tissues: Prevertebral soft tissues are normal in thickness. No paravertebral hematomas. No ap ical pneumothoraces. IMPRESSION: No visualized fracture. Multi-level degenerative changes. Dictated by: China Anderson M.D. on 04/21/2017 at 20:42 Approved by: China Anderson M.D. on 04/21/2017 at 20:44
[2017-04-21] MEDS ORDERED: Insulin LISPRO 300 Unit/3 mL Inj SUBQ SCH (22:00)
[2017-04-22] MEDS: Sodium Chloride LOK Flush 10 mL Syringe IVFLUSH SCH ×2 (00:24→10:30)
[2017-04-22 02:58] VITALS: BP_SYST 121; PULSE 64; RESP 16; O2SAT 94
[2017-04-22 03:25] LABS: BASOPHILS % (AUTO) 0.4 % (0-3); EOSINOPHILS % (AUTO) 1.9 % (0-5); MONOCYTES % (AUTO) 7.6 % (4-12); Mean Corpuscular Hemoglobin 29.8 pg (27.0-35.0); Mean Corpuscular Volume 87.1 fL (81-100); Platelet Count 189 bil/L (150-400)
--- NOTE | 2017-04-22 05:50 | NUR ---
Tele/sats Tele has been sinus rhythm in 70's while awake - sinus kenya in 50's while sleeping. States neck pain has been controlled with Percocet. Slept much of the night. Placed on continuous pulse oximetry while sleeping and sats have remained in the mid-90's on room air. with patient throughout the night. Declined nicotine patch, requesting it be given later this morning. Blood sugars 314, then 210 after receiving Lantus and Lispro.
[2017-04-22] MEDS: Pantoprazole 40 mg ER24 Tablet PO SCH (06:23)
[2017-04-22] MEDS: oxyCODONE-Acetamin 10-325 mg Tablet PO PRN ×2 (06:23→10:30)
[2017-04-22] MEDS: MeTOProlol XL 25 mg ER24 Tablet PO SCH (08:30)
[2017-04-22 10:10] VITALS: PULSE 50
[2017-04-22] MEDS: Insulin LISPRO 300 Unit/3 mL Inj SUBQ SCH ×2 (10:29→12:20)
[2017-04-22] MEDS: Insulin GLARgine 100 Unit/mL Syringe SUBQ SCH (10:31)
[2017-04-22] MEDS: Heparin 5,000 Unit/mL Inj SUBQ SCH (10:31)
[2017-04-22] MEDS: levETIRAcetam 500 mg Tablet PO SCH (10:32)
[2017-04-22 10:42] VITALS: BP 132/79; PULSE 60; RESP 20; O2SAT 97
[2017-04-22 12:46] VITALS: BP 129/77; RESP 20; O2SAT 96
--- NOTE | 2017-04-22 13:04 | PCM.DIMED ---
Hussain Lomeli DO 04/22/17 1304: Discharge Instructions Date of Service Apr 22, 2017 Dates of Hospitalization Apr 20, 2017 at 16:06 Discharge Diagnosis Discharge Diagnosis Neck Pain Medication Instructions Additional med instructions Take your ibuprofen as scheduled (800mg three times daily with food). Space your gabapentin dosage out into 1200mg three times daily. Continue your Keppra 500mg twice daily and follow up with your PCP to continue. Diet Discharge Diet: Diabetic (No carbohydrates) Activity Discharge Activity: No restrictions Call your provider Call your provider for: Shortness of breath, Chest pain, Vomitting, Weakness ( unilateral), Other (Worsening neck pain) Patient Instructions Patient Instructions Use your ibuprofen and limit neck movement to avoid increasing spasm or pain. As we talked about extensively during your stay here, managing your diabetes is essential to your health. Follow up with your PCP in 1-2 weeks to evaluate your insulin regimen and to see how your dieting progress is coming. You need to continue to try to stop smoking. You have made great progress from 3 to 1/2 ppd, keep it up! Follow-up with PCP in: 2 weeks (1-2 weeks) Jeff Oconnro MD 04/22/175: Discharge Instructions Attending's Statement The patient was seen and examined together with Dr. Lomeli on 04/22/2017 and I agree with the history, exam and plan as outlined in the note above. . Hussain Lomeli DO Apr 22, 2017 13:04 Jeff Oconnor MD Apr 22, 2017 20:25
[2017-04-22] MEDS ORDERED: KEP500TA PO (13:37)
--- NOTE | 2017-04-22 13:57 | NUR ---
discharge of patient reviewed instructions with patient and patient family, pt stating "I already know it all". Patient walked out of hospital with prescription and instructions. IV and Telemetry previously discontinued. Patient left hospital with family to home self care. Walked out of hospital by [employer].
--- NOTE | 2017-04-22 15:38 | NUR ---
Social Work Note: Discharge Data& Assessment: Per pt is medically ready to discharge home via POV. SW met with pt and pt at bedside to confirm discharge plan and assess for any unmet needs. Bernardo Koenig is a 47 year old male admitted on 04/20/2017 for chest pain. Per pt is medically improved and ready for discharge. Pt ambulating the halls independently. Pt and pt deny any other needs. No other discharge needs identified. Plan: Per pt is medically ready to discharge home via POV. Pt and pt deny any other needs. No other discharge needs identified. ANTHONY Banuelos
--- NOTE | 2017-04-22 18:41 | PCM.DC.MED ---
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 Dictated by: Nicholas Zamora M.D. on 04/20/2017 at 19:00 Approved by: Nicholas Zamora M.D. on 04/20/2017 at 19:[address] 04/20 PROCEDURE: CT BRAIN WITHOUT CONTRAST ([id number]) IMPRESSION: No acute intracranial abnormality. Dictated by: Nicholas Zamora M.D. on 04/20/2017 at 18:05 Approved by: Nicholas Zamora M.D. on 04/20/2017 at 18:[address] 04/21 Pending read Cardiac Echo Impression Echocardiogram 01/19/17 Sinus bradycardia; heart rate is 51-55 bpm. Normal LV size. Normal wall thickness; there is basal inferior, mid-inferior and basal inferoseptal hypokinesis. Otherwise normal wall motion. EF is 60- 65%. Stage I diastolic dysfunction. No significant valvular abnormalities. Compared to prior study 11/22/2016 focal wall motion abnormalities are newly appreciated. However, technically study is much better this time versus last time, so [id number] comparison is difficult. Pharmacologic Stress test 1. Probable normal myocardial perfusion study although with reduced sensitivity because of marginal image quality from the patient's body habitus. 2. Mild fixed inferolateral perfusion defect that resolves on prone imaging most likely consistent with diaphragmatic attenuation. There is no obvious myocardial ischemia or previous myocardial infarction and thus this is a low- risk study. 3. Normal LV systolic function without any regional wall motion abnormality. 4. Persistent chronic chest discomfort but no clear ECG evidence of ischemia on pharmacologic stress testing. 5. Compared to the previous myocardial perfusion study of 09/11/2005, image quality on that exam was likewise quite poor, again with some scattered defects and chest tightness with Lexiscan administration. Overall, there has been no clear change since the previous study. Dictated by: Jeff Kaye M.D. on 10/24/2016 at 15:23 Brief History 47-year-old male with a history of severely uncontrolled diabetes, CAD with CT in 2015 and 9 stents, COPD, heart failure, history of migraines, hypertension, and more than [id number] history of smoking presents to the emergency department after syncopal episode at home. The patient remembers becoming lightheaded, seeing stars, and then everything getting dark. Halos with his face in the gravel and scrapes on his knees. He was told by his niece that he was shaking and he remembers being disoriented upon awakening. The patient's last episode of this was 3 months ago. He previously had seizures as child and was on medication until he was 16 at which point he discontinued the medication. He has not recently been on any medication or has been evaluated by neurology. The patient denies incontinence of latter bowel associated with this event, stating [place] because a water bottle today spelled on himself. Patient's history is also positive for prior heroin use although he has been off of this for some time and is no longer taking methadone. Patient' s diabetes had been extremely difficult to control the patient is currently on Lantus 80 units twice a day as well as Humulin R 40-60 units with meals 3 times a day. Patient denies any recent illness, fever, vomiting, chest pain, change in taste or loss of sensation, or postprandial nausea. However, he is currently experiencing nausea, headache, abdominal pain, and neuropathy pain. Patient was fluid resuscitated and his blood glucose was brought down from the initial value of 538 on admission. He had a fall prior to admission and so a brain and neck CT were done which were both negative. He was started on keppra with a 1500mg loading dose and 500mg BID as he has a history of seizures and his syncopal events could be neurological in origin. Hospital Course 47-year-old male with a past history of seizure activity presents after syncopal episode with reported shaking and fall. Patient awoke in the dirt still tremulousness and having a hard time remembering events or his family. Patient did not want to be admitted but agreed to stay under observation. 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; present on admission; ongoing -Patient has intermittent nausea questionable for gastroparesis and is on very high doses of insulin -Resume home insulin regimen -A1c 10.3 -Diabetic diet and extensive dietary counseling done during his hospitalization Anion gap metabolic acidosis; present on admission; resolved -Lactic acid 1.7, AG trending to close at 15 -Serum ketones negative Reported chronic heart failure; present on admission; stable - Continue home medications CAD/CT with 9 stents and reported chronic CP; present on admission; ongoing -Continue plavix and aspirin, nitro when necessary History of DVT; present on admission; stable -No history of warfarin found -Pt is on aspirin and plavix -Follow up with PCP to determine best anticoagulation regimen History of gout: present on admission, stable -Uric acid 2.9 -Continue allopurinol 300mg qHS Acute on chronic Migraines: Present on admission; ongoing -Patient has a history of TIAs and CAD which precludes him from receiving sumatriptan -Patient given Tylenol Disposition: Patient is discharged this afternoon in stable and improved condition. The patient understood the conditions and events that would prompt him to return to the hospital and was agreeable to discharge. He plans to follow up with his PCP in the next couple weeks to assess his ongoing keppra use and refine his insulin regimen. Exam Vital Signs (Last) Date Time Temp Pulse Resp B/P Pulse Ox O2 Delivery O2 Flow Rate FiO2 04/22/17 12:46 36.7 20 129/77 96 Room Air 04/22/17 10:42 60 Exam General: Obese male lying in bed in NAD, more interactive today HEENT: PERRLA, EOMI, membranes pink and moist without cobblestoning Neck: Mild diffuse tenderness, no lymphadenopathy/thyromegaly Cardiac: RRR, no murmurs/rubs/gallops Respiratory: CTA bilaterally, no wheezes/rales/rhonchi Abdomen: Soft, obese, nontender, positive bowel sounds, laparoscopic scars present Extremities: Pulses intact in bilateral LE, no edema/clubbing/cyanosis Skin: Normal temperature and turgor. No rashes or ulcers noted. Neuro: CN II-XII intact, sensation and muscle strength fully intact in all extremities Psych: Normal mood and affect Test 04/20/17 14:42 04/20/17 17:23 04/20/17 21:30 04/21/17 02:40 Prothrombin Time 9.8sec (8.1-12.5) Prothromb Time International Ratio 0.92ratio Magnesium Level 1.9mg/dL (1.6-2.6) Pro-B-Type Natriuretic Peptide 250.1pg/mL (0-121) Thyroid Stimulating Hormone (TSH) 0.768uIU/mL (0.450-4.500) Ketones Negative (Negative) Lactic Acid Level 1.7mmol/L (0.4-2.0) Total Creatine Kinase 95U/L (21-232) Creatine Kinase MB 1.1ng/mL (0.0-10.4) Creatine Kinase MB % % (0.0-5.0) Hemoglobin A1c 10.3% (4.8-5.6) Uric Acid 2.9mg/dL (2.6-7.2) Troponin T 0.010ug/L (0.0-0.011) Triglycerides Level 199mg/dL (0-149) Cholesterol Level 106mg/dL (100-199) LDL Cholesterol, Calculated 33.200mg/dL (0-99) VLDL Cholesterol 39.800mg/dL HDL Cholesterol 33mg/dL (>39) Cholesterol/HDL Ratio 3.21 (0.0-4.4) Test 04/22/17 02:50 White Blood Count 7.8th/mm3 (3.8-10.1) Red Blood Count 4.50mil/mm3 (4.40-5.80) Hemoglobin 13.4g/dL (13.8-17.2) Hematocrit 39.2% (41.0-50.0) Mean Corpuscular Volume 87.1fL (81-100) Mean Corpuscular Hemoglobin 29.8pg (27.0-35.0) Mean Corpuscular Hemoglobin Concent 34.2% (32.0-37.0) Red Cell Distribution Width 13.3% (12.3-15.4) Platelet Count 189bil/L (150-400) Neutrophils (%) (Auto) 55.0% (40-74) Lymphocytes (%) (Auto) 35.0% (14-46) Monocytes (%) (Auto) 7.6% (4-12) Eosinophils (%) (Auto) 1.9% (0-5) Basophils (%) (Auto) 0.4% (0-3) Sodium Level 139mEq/L (134-144) Potassium Level 3.9mEq/L (3.5-5.2) Chloride Level 103mEq/L (97-108) Carbon Dioxide Level 21mmol/L (18-29) Blood Urea Nitrogen 13mg/dL (6-24) Creatinine 0.72mg/dL (0.76-1.27) Estimat Glomerular Filtration Rate 123mL/min (>59) Glucose Level 226mg/dL (60-99) Calcium Level 8.5mg/dL (8.5-10.1) Total Bilirubin 0.2mg/dL (0.0-1.2) Aspartate Amino Transf (AST/SGOT) 20U/L (0-50) Alanine Aminotransferase (ALT/SGPT) 16U/L (0-44) Alkaline Phosphatase 109U/L (25-150) Total Protein 6.0g/dL (6.4-8.4) Albumin 3.1g/dL (3.4-5.0) Discharge Medications Discharge Medications Allopurinol (Allopurinol) 300 Mg Tablet 300 MG PO HS (Reported) Aspirin (Aspirin) 81 Mg Tablet 81 MG PO QAM (Reported) Atorvastatin (Lipitor) 80 Mg Tablet 80 MG PO HS (Reported) Clopidogrel (Clopidogrel) 75 Mg Tablet 75 MG PO QAM (Reported) Doxazosin (Cardura) 4 Mg Tablet 8 MG PO QAM (Reported) Finasteride (Finasteride) 5 Mg Tablet 5 MG PO QAM (Reported) Fluoxetine (Fluoxetine) 40 Mg Capsule 40 MG PO QAM (Reported) Furosemide (Furosemide) 40 Mg Tablet 40 MG PO QAM (Reported) Gabapentin (Gabapentin) 600 Mg Tablet 3,600 MG PO QAM (Reported) Ibuprofen (Ibuprofen) 200 Mg Capsule 800 MG PO BIDWM (Reported) Insulin Glargine (Lantus U100 Insulin Vial) 100 Unit/Ml Vial 80 UNIT SUBQ BID ( Reported) Insulin Regular, Human (HUMulin-R U100 Insulin Vial) 100 Unit/1 Ml Vial 40 UNIT SUBQ BIDWM (Reported) BREAKFAST AND DINNER Insulin Regular, Human (HUMulin-R U100 Insulin Vial) 100 Unit/1 Ml Vial 2-20 UNIT SUBQ ACHS (Reported) SLIDING SCALE Isosorbide MN ER (Isosorbide MN ER) 60 Mg Tab.er.24h 60 MG PO QAM (Reported) Levetiracetam (Keppra) 500 Mg Tablet 500 MG PO BID Prescribed by: JESS RODRIGUEZ DO Lisinopril (Lisinopril) 2.5 Mg Tablet 2.5 MG PO QAM (Reported) Metoprolol Succinate ER (Metoprolol Succinate ER) 25 Mg Tab.er.24h 25 MG PO QAM (Reported) Nicotine 21 mg/24 hr Patch (Nicotine 21 mg/24 hr Patch) 1 Each Patch.dysq 1 PATCH TRANSDERM QAM (Reported) Oxycodone HCl/Acetaminophen (Endocet 10-325 mg Tablet) 1 Each Tablet 2 EACH PO BID (Reported) Pantoprazole DR (Pantoprazole DR) 40 Mg Tablet.dr 40 MG PO QAM (Reported) Potassium Chloride ER (Potassium Chloride ER) 20 Meq Tablet.er 20 MEQ PO QAM ( Reported) TAKE WITH FOOD Tamsulosin ER (Tamsulosin ER) 0.4 Mg Cap.er.24h 0.8 MG PO QAM (Reported) As needed Acetaminophen (Acetaminophen) 500 Mg Tablet 500-1,000 MG PO Q6H PRN PRN For Pain (Reported) Albuterol HFA (Proair HFA) 8.5 Gm Hfa.aer.ad 2 PUFFS INHALATION QID PRN PRN For Shortness of Breath (Reported) Loperamide (Loperamide) 2 Mg Tablet 2 MG PO Q4H PRN PRN For Diarrhea or Loose Stool (Reported) Nitroglycerin SL (Nitroglycerin SL) 0.4 Mg Tab.subl 0.4 MG SL Q5MIN PRN PRN For Chest Pain (Reported) Triamcinolone Acet (Triamcinolone Acetonide Cream) 1 Applic/0.25 Gm Cr 1 APPLIC EXT DAILY PRN PRN DRY PATCHES (Reported) TO FEET AFTER SHOWER Additional med instructions Take your ibuprofen as scheduled (800mg three times daily with food). Space your gabapentin dosage out into 1200mg three times daily. Continue your Keppra 500mg twice daily and follow up with your PCP to continue. Followup Plan Discharge Diet: Diabetic Discharge Activity: No restrictions Patient Instructions Use your ibuprofen and limit neck movement to avoid increasing spasm or pain. As we talked about extensively during your stay here, managing your diabetes is essential to your health. Follow up with your PCP in 1-2 weeks to evaluate your insulin regimen and to see how your dieting progress is coming. You need to continue to try to stop smoking. You have made great progress from 3 to 1/2 ppd, keep it up! Follow-up with PCP in: 2 weeks Time spent Greater than 30 minutes was spent in preparation of discharge with greater than 50% of that time dedicated to patient counseling and coordination of care. . Attending Statement The patient was seen and examined together with Dr. Lomeli on 04/22/2017 and I agree with the history, exam and plan as outlined in the note above. . copies to: Santiago Funez MD, Jeffery S DO Apr 22, 2017 18:41 Jeff Ocononr MD Apr 22, 2017 20:26
== END 2017-04-22 13:50 | disposition home or self-care (01) | DRG 101 ==
LOC: SED 14:38 → EDUNIT# 14:38 → EDBD 14:38 → OBSVTOIN 16:06 → PCC 16:06
PROVIDERS: ADMIT Internal Medicine; ATTEND Internal Medicine
DX: G40.909 Epilepsy, unspecified, not intractable, without status epilepticus (principal); I50.32 Chronic diastolic (congestive) heart failure; E11.42 Type 2 diabetes mellitus with diabetic polyneuropathy; J44.9 Chronic obstructive pulmonary disease, unspecified; E11.65 Type 2 diabetes mellitus with hyperglycemia; K31.84 Gastroparesis; I25.10 Atherosclerotic heart disease of native coronary artery without angina pectoris; E11.40 Type 2 diabetes mellitus with diabetic neuropathy, unspecified; G89.29 Other chronic pain; I10 Essential (primary) hypertension; E11.43 Type 2 diabetes mellitus with diabetic autonomic (poly)neuropathy; F17.210 Nicotine dependence, cigarettes, uncomplicated; G43.909 Migraine, unspecified, not intractable, without status migrainosus; R07.9 Chest pain, unspecified; Z79.51 Long term (current) use of inhaled steroids; Z95.5 Presence of coronary angioplasty implant and graft; Z79.4 Long term (current) use of insulin; I25.2 Old myocardial infarction; Z79.82 Long term (current) use of aspirin; Z88.0 Allergy status to penicillin; Z86.718 Personal history of other venous thrombosis and embolism; Z86.73 Personal history of transient ischemic attack (TIA), and cerebral infarction without residual deficits

== ENCOUNTER 2017-05-10 14:57 | Emergency (ER) | payer OTHER, MEDICAID ==
[~2017-05-10] VITALS: Ht 172.7 cm; Wt 127.3 kg
[~2017-05-10 14:57] MED LIST changes: -ATOR10TA66 PO; +ATOR80TA PO; -ISOS30TA4 PO; +ISOS60TA2 PO; +KEP500TA PO; +LOPE2TAB32 PO
[2017-05-10 15:00] VITALS: BP 92/61; PULSE 83; RESP 17; O2SAT 96
--- NOTE | 2017-05-10 15:12 | ED.REPORT ---
HPI-Dyspnea / Wheezing Date of Service May 10, 2017 ED Provider: Dr. 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 The episode began with "chest tightness" and progressed into difficulty breathing, dizziness, vomiting, and confusion. Pt describes that he also "lost his memory for a bit." Per his daughter, on the drive here, he had a second episode of memory lapse. Four days ago, the pt collapsed and lost consciousness for several minutes while grocery shopping at [employer] [place]. As a child, he had spinal meningitis and seizures. Nursing Notes Stated Complaint: HARD TIME BREATHING,LOC Chief Complaint: Respiratory Complaints Nursing Notes Reviewed: Yes Allergies: Coded Allergies: Honey Bee (Verified Allergy, Severe, anaphylaxis, 05/10/17) Penicillins (Verified Allergy, Severe, SWELLING, HIVES, ITCHING, 05/10/17) TAPE (Verified Allergy, Mild, blisters, 05/10/17) hydromorphone (Verified Adverse Reaction, Intermediate, HALLUCINATIONS, "HIGH", 05/10/17) sumatriptan (Verified Adverse Reaction, Intermediate, CONVULSIONS, SHAKES , 05/10/17) Scheduled Allopurinol (Allopurinol) 300 Mg Tablet 300 MG PO HS Aspirin (Aspirin) 81 Mg Tablet 81 MG PO QAM Atorvastatin (Lipitor) 80 Mg Tablet 80 MG PO HS Clopidogrel (Clopidogrel) 75 Mg Tablet 75 MG PO QAM Doxazosin (Cardura) 4 Mg Tablet 8 MG PO QAM Finasteride (Finasteride) 5 Mg Tablet 5 MG PO QAM Fluoxetine (Fluoxetine) 40 Mg Capsule 40 MG PO QAM Furosemide (Furosemide) 40 Mg Tablet 40 MG PO QAM Gabapentin (Gabapentin) 600 Mg Tablet 3,600 MG PO QAM Ibuprofen (Ibuprofen) 200 Mg Capsule 800 MG PO BIDWM Insulin Glargine (Lantus U100 Insulin Vial) 100 Unit/Ml Vial 80 UNIT SUBQ BID Insulin Regular, Human (HUMulin-R U100 Insulin Vial) 100 Unit/1 Ml Vial 40 UNIT SUBQ BIDWM BREAKFAST AND DINNER Insulin Regular, Human (HUMulin-R U100 Insulin Vial) 100 Unit/1 Ml Vial 2-20 UNIT SUBQ ACHS SLIDING SCALE Isosorbide MN ER (Isosorbide MN ER) 60 Mg Tab.er.24h 60 MG PO QAM Levetiracetam (Keppra) 500 Mg Tablet 500 MG PO BID Lisinopril (Lisinopril) 2.5 Mg Tablet 2.5 MG PO QAM Metoprolol Succinate ER (Metoprolol Succinate ER) 25 Mg Tab.er.24h 25 MG PO QAM Nicotine 21 mg/24 hr Patch (Nicotine 21 mg/24 hr Patch) 1 Each Patch.dysq 1 PATCH TRANSDERM QAM Oxycodone HCl/Acetaminophen (Endocet 10-325 mg Tablet) 1 Each Tablet 2 EACH PO BID Pantoprazole DR (Pantoprazole DR) 40 Mg Tablet.dr 40 MG PO QAM Potassium Chloride ER (Potassium Chloride ER) 20 Meq Tablet.er 20 MEQ PO QAM TAKE WITH FOOD Tamsulosin ER (Tamsulosin ER) 0.4 Mg Cap.er.24h 0.8 MG PO QAM Scheduled PRN Acetaminophen (Acetaminophen) 500 Mg Tablet 500-1,000 MG PO Q6H PRN PRN For Pain Albuterol HFA (Proair HFA) 8.5 Gm Hfa.aer.ad 2 PUFFS INHALATION QID PRN PRN For Shortness of Breath Loperamide (Loperamide) 2 Mg Tablet 2 MG PO Q4H PRN PRN For Diarrhea or Loose Stool Nitroglycerin SL (Nitroglycerin SL) 0.4 Mg Tab.subl 0.4 MG SL Q5MIN PRN PRN For Chest Pain Triamcinolone Acet (Triamcinolone Acetonide Cream) 1 Applic/0.25 Gm Cr 1 APPLIC EXT DAILY PRN PRN DRY PATCHES TO FEET AFTER SHOWER General Time Seen by MD: 15:11 Chief Complaint Chest pain Hx Obtained From: Patient, Daughter Arrived By: Walk-in Sudden in Onset?: Yes Onset Occurred: 1 - 4 hours ago Symptom Duration: Since onset Location: : Substernal Quality: Painful Severity: Current: Mild Recent Healthcare: Recent doctor visit Similar Sx Previous: Yes Past Medical History Past Medical History Notes: Patient states has had "nine stents" placed at [facility] 08/01/2016, 08/04/16, and 08/26/16 Multiple ED visits for CP, admitted for chest pain 11/21/2016 with hospitalist diagnosis of narcotic seeking behavior Echocardiogram November 15-EF 60-65%, no focal wall motion Seen in the ED 01/14/2017 for chest pain abnormalities, no significant valvular disease Past Medical History CAD - multiple stents, cardiac caths 02/14, 03/12, 04/11, ad 04/17 w/stent placed to proximal LAD overlapping prior stent and "plavix non-responder" Syncope Type two diabetes with neuropathy Chronic back and leg pain Lower extremity DVT "years ago" per patient, details unclear History of migraines BPH Kidney Stones On Warfarin and Plavix HTN seizure spinal meningitis [place] 2014 Concern for TIA October 2016, MRI/MRA negative Reports: COPD, Congestive heart failure, Stroke Reports: Heroin use Past Surgical History Shoulder surgery (joint replacement) Left knee surgery Ganglion cyst in right hand Cardiac stents ("x9" - at [facility]) Reports: Cholecystectomy Family History Both of the patient's parents are still alive Smoking History Current Every Day Smoker Social History Alcohol Use: Denies alcohol use Drug Use: Denies drug use Other Social History: Good social support, , 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 GI: Reports: Vomiting Neurologic: Reports: Change LOC, Confusion, Syncope Physical Exam Initial Vital Signs Vital Signs (First) Date Time Temp Pulse Resp B/P Pulse Ox O2 Delivery O2 Flow Rate FiO2 05/10/17 15:00 36.8 83 17 92/61 96 Room Air Initial VS: Reviewed General/Constitutional: Awake, Cooperative Appearance / Presentation: Positive: Obese, morbidly Neck: Atraumatic, Supple Respiratory / Chest: Atraumatic, Breath sounds NL, Breath sounds = bilat Cardiovascular: Heart rate NL, Regular rhythm, Heart sounds NL ENT: Atraumatic, Mucous membranes moist Lower Extremity / Pelvis / MS: Atraumatic, Inspection NL, Full range of motion , No deformity Neurologic: Oriented X3, Speech NL Upper Extremity / MS: Atraumatic, Inspection NL, Full range of motion Interpretation & Diagnostics Lab Results Interpretation Result Diagram: 05/10/17 1730 05/10/17 1730 Test 05/10/17 17:30 White Blood Count 7.4th/mm3 (3.8-10.1) Red Blood Count 4.72mil/mm3 (4.40-5.80) Hemoglobin 14.2g/dL (13.8-17.2) Hematocrit 41.1% (41.0-50.0) Mean Corpuscular Volume 87.1fL (81-100) Mean Corpuscular Hemoglobin 30.1pg (27.0-35.0) Mean Corpuscular Hemoglobin Concent 34.5% (32.0-37.0) Red Cell Distribution Width 13.2% (12.3-15.4) Platelet Count 196bil/L (150-400) Neutrophils (%) (Auto) 62.8% (40-74) Lymphocytes (%) (Auto) 27.6% (14-46) Monocytes (%) (Auto) 7.6% (4-12) Eosinophils (%) (Auto) 1.5% (0-5) Basophils (%) (Auto) 0.4% (0-3) Sodium Level 137mEq/L (134-144) Potassium Level 3.8mEq/L (3.5-5.2) Chloride Level 100mEq/L (97-108) Carbon Dioxide Level 19mmol/L (18-29) Blood Urea Nitrogen 14mg/dL (6-24) Creatinine 0.88mg/dL (0.76-1.27) Estimat Glomerular Filtration Rate 98mL/min (>59) Glucose Level 348mg/dL (60-99) Calcium Level 9.2mg/dL (8.5-10.1) Magnesium Level 2.0mg/dL (1.6-2.6) Total Bilirubin 0.3mg/dL (0.0-1.2) Aspartate Amino Transf (AST/SGOT) 16U/L (0-50) Alanine Aminotransferase (ALT/SGPT) 12U/L (0-44) Alkaline Phosphatase 111U/L (25-150) Troponin T < 0.010ug/L (0.0-0.011) Total Protein 7.4g/dL (6.4-8.4) Albumin 3.6g/dL (3.4-5.0) Hold Pereyra Top Tube Received (Received) ECG Interpretation Time: 15:55 Interpreted by: ED physician Normal ECG Interpretation: Normal sinus rhythm (rate 69) X-Ray Chest Interpretation Chest Xray Interpretation: IMPRESSION: Acute disease is not seen in the upright portable chest Dictated by: Thomas Tejada M.D. on 05/10/2017 at 15:28 Approved by: Thomas Tejada M.D. on 05/10/2017 at 15:29 View: Portable Interpretation / Wet Read by: Interpret - Radiologist Re-Eval/Medical Decision Med Decision/Clinical Course I had a very lengthy discussion with this gentleman and his family after results of tests are available. Really all testing is reassuring here today but he continues to have severe foot pain and nagging headache and chest pressure. He says that these symptoms are something that he deals with commonly but they are much worse than normal. He also would like to know why he is having these events where he fades out and has lost memory for periods of time. I think that a neurology evaluation would be appropriate here. I think that he may be having seizures though that would not explain the increased pain. He says that every other time when he has required cardiac stenting TESTS have been normal specifically cardiac enzyme markers. I offered this gentleman hospitalization which he has declined. I told him that it would probably be reasonable to just increase his pain medication for a few days until he can follow-up with his primary care provider. I have instructed him to take oxycodone/APAP 10/325 up to 3 tablets at a time every 6 hours as needed for pain and I will write him a prescription for an additional 15 tablets. He is very concerned that this will "get him in trouble" with his primary care provider. I told him that he should discuss this freely with his provider when he sees him early next week. Counseled Regarding: Diagnosis, Lab results, Need for follow-up, When/why to return to ED Discharge & Departure Impression: Primary Impression: Chest pain Additional Impressions: Foot pain Loss of consciousness Disposition: Home Discharge Condition All VS Reviewed: Yes Condition: Stable Patient Instructions: Chest Pain (ED) Additional Instructions: No dangerous cause for your chest pain is discovered on the x-ray or laboratory tests or EKG. You tell me that this has been the case previously when you have required cardiac stenting. I have offered you hospitalization to further investigate this but you have declined. For now, we will treat you with increased doses of pain medication. You can take oxycodone 10/325 1-3 tablets every 6 hours as needed. I have given you a prescription for an additional 15 tablets. No more than 12 tablets in 24 hours. Follow-up with your primary care doctor early next week to discuss further investigation. Follow-up regarding the episodes of loss of consciousness. These may be seizures and therefore I recommend that you follow-up with neurology to further investigate this. Referrals: Santiago Funez MD (PCP) Russ Attestation Portion of this note were transcribed by Adia Ramirez. I, Dr. Salazar, personally performed the history, physical exam, and medical decision-making: I reviewed and confirmed the accuracy for the information in the transcribed note. Signed by: russ John, 05/10/17 1800 copies to: Santiago Funez MD, Kirk H MD May 10, 2017 15:12 Adia Ramirez May 10, 2017 15:29
[2017-05-10] MEDS ORDERED: oxyCODONE-Acetamin 10-325 mg Tablet PO ONE ×2 (15:25→18:45)
--- NOTE | 2017-05-10 15:31 | DRSVH ---
PROCEDURE: X-RAY CHEST ONE VIEW, PORTABLE ([id number]) INDICATIONS: CHEST PAIN TECHNIQUE: One view of the chest was acquired. COMPARISON: [facility], CR, XR CHEST 1VW (PORTABLE), 04/20/2017, 15:13. FINDINGS: Surgical changes and devices: lunchroom monitor leads are seen over the chest. Lungs and pleura: No pleural effusions or pneumothorax. Lungs are clear. Mediastinum: Mediastinal contours appear normal. Heart size is normal. Bones and chest wall: No suspicious bony lesions. Overlying soft tissues appear unremarkable. IMPRESSION: Acute disease is not seen in the upright portable chest. Dictated by: Thomas Tejada M.D. on 05/10/2017 at 15:28 Approved by: Thomas Tejada M.D. on 05/10/2017 at 15:29
[2017-05-10 15:55] VITALS: BP 114/71; PULSE 69; RESP 18; O2SAT 95
[2017-05-10] MEDS ORDERED: Insulin LISPRO 300 Unit/3 mL Inj SUBQ ONE (16:15)
[2017-05-10] MEDS ORDERED: Insulin GLARgine 100 Unit/mL Syringe SUBQ ONE (16:15)
[2017-05-10] MEDS ORDERED: HYDROcodone-APAP 10-325 mg PO ONE (16:50)
[2017-05-10 17:47] LABS: BASOPHILS % (AUTO) 0.4 % (0-3); EOSINOPHILS % (AUTO) 1.5 % (0-5); MONOCYTES % (AUTO) 7.6 % (4-12); Mean Corpuscular Hemoglobin 30.1 pg (27.0-35.0); Mean Corpuscular Volume 87.1 fL (81-100); NEUTROPHILS % (AUTO) 62.8 % (40-74); Platelet Count 196 bil/L (150-400)
[2017-05-10 18:13] LABS: TROPONIN T < 0.010 ug/L (0.0-0.011)
[2017-05-10 18:23] VITALS: BP 119/67; PULSE 78; RESP 18; O2SAT 94
[2017-05-10] MEDS ORDERED: OXYC-466 PO (18:58)
[2017-05-10 19:03] VITALS: BP 119/67; PULSE 78; RESP 18; O2SAT 94
== END 2017-05-10 19:05 | disposition home or self-care (01) ==
LOC: SED 14:57
DX: R07.89 Other chest pain (principal); M79.673 Pain in unspecified foot; R55 Syncope and collapse; R51 Headache; J44.9 Chronic obstructive pulmonary disease, unspecified; I25.10 Atherosclerotic heart disease of native coronary artery without angina pectoris; E11.9 Type 2 diabetes mellitus without complications; I50.9 Heart failure, unspecified; I25.2 Old myocardial infarction; I11.0 Hypertensive heart disease with heart failure; G89.29 Other chronic pain; Z86.73 Personal history of transient ischemic attack (TIA), and cerebral infarction without residual deficits; Z95.5 Presence of coronary angioplasty implant and graft; F17.200 Nicotine dependence, unspecified, uncomplicated; Z79.82 Long term (current) use of aspirin; Z79.01 Long term (current) use of anticoagulants; Z79.4 Long term (current) use of insulin; Z88.0 Allergy status to penicillin; Z88.5 Allergy status to narcotic agent; Z88.8 Allergy status to other drugs, medicaments and biological substances; Z91.030 Bee allergy status
CPT/HCPCS: 36415; 71010; 80053; 82948; 83735; 84484; 85025; 93005; 96372; 99285; J1815

== ENCOUNTER 2017-05-13 15:11 | Inpatient (IN) | payer OTHER, MEDICAID ==
[2017-05-13] VITALS (8 sets, daily range): BP systolic 96–125; BP diastolic 44–65; PULSE 64–95; RESP 18–22; O2SAT 94–98
[~2017-05-13] VITALS: Ht 172.7 cm; Wt 121.3 kg
[~2017-05-13 15:11] MED LIST changes: +OXYC-466 PO
--- NOTE | 2017-05-13 15:30 | ED.REPORT ---
HPI-General Illness Date of Service May 13, 2017 ED Provider: Zackary Domínguez MD A 46 year old male with history of CAD, type II diabetes mellitus, CHF, stroke, [place], hypertension, frequent ED visits due to angina and multiple cardiac stents presents to the ED via EMS complaining of sudden onset sharp, left-sided chest pain that began 3 hours prior to arrival. According to EMS, the patient was hypotensive en route. The episode of "12/10" chest pain lasted approximately 5 minutes. His symptoms feel similar to his previous episodes of angina. The episode today began while he was sitting in the car and was associated with nausea and lightheadedness. He states that the pain radiates/"pulsates" to his left arm. He reports that his pain is exacerbated by movement and walking. He rates his current pain as an 8/10. He took 1 Nitro with little relief. He denies any visual disturbances, SOB, vomiting or one-sided weakness, diarrhea, constipation or abdominal pain. Patient was seen in the ED on 05/10 for identical symptoms and was discharged in good condition with 15 oxycodone and a plan to follow up with his PCP. Last echocardiogram - 12/2016 revealed basal mid inferior and inferoseptal hypokinesis with normal EF. Nursing Notes Stated Complaint: CHEST PAIN Nursing Notes Reviewed: Yes Allergies: Coded Allergies: Honey Bee (Verified Allergy, Severe, anaphylaxis, 05/10/17) Penicillins (Verified Allergy, Severe, SWELLING, HIVES, ITCHING, 05/10/17) TAPE (Verified Allergy, Mild, blisters, 05/10/17) hydromorphone (Verified Adverse Reaction, Intermediate, HALLUCINATIONS, "HIGH", 05/10/17) sumatriptan (Verified Adverse Reaction, Intermediate, CONVULSIONS, SHAKES , 05/10/17) Scheduled Allopurinol (Allopurinol) 300 Mg Tablet 300 MG PO HS Aspirin (Aspirin) 81 Mg Tablet 81 MG PO QAM Atorvastatin (Lipitor) 80 Mg Tablet 80 MG PO HS Clopidogrel (Clopidogrel) 75 Mg Tablet 75 MG PO QAM Doxazosin (Cardura) 4 Mg Tablet 8 MG PO QAM Finasteride (Finasteride) 5 Mg Tablet 5 MG PO QAM Fluoxetine (Fluoxetine) 40 Mg Capsule 40 MG PO QAM Furosemide (Furosemide) 40 Mg Tablet 40 MG PO QAM Gabapentin (Gabapentin) 600 Mg Tablet 600 MG PO BID Insulin Glargine (Lantus U100 Insulin Vial) 100 Unit/Ml Vial 80 UNIT SUBQ BID Insulin Regular, Human (HUMulin-R U100 Insulin Vial) 100 Unit/1 Ml Vial 40 UNIT SUBQ BIDWM BREAKFAST AND DINNER Insulin Regular, Human (HUMulin-R U100 Insulin Vial) 100 Unit/1 Ml Vial 2-20 UNIT SUBQ ACHS SLIDING SCALE Isosorbide MN ER (Isosorbide MN ER) 60 Mg Tab.er.24h 60 MG PO QAM Lisinopril (Lisinopril) 2.5 Mg Tablet 2.5 MG PO QAM Metoprolol Succinate ER (Metoprolol Succinate ER) 25 Mg Tab.er.24h 25 MG PO QAM Oxycodone HCl/Acetaminophen (Endocet 10-325 mg Tablet) 1 Each Tablet 2 EACH PO QID Pantoprazole DR (Pantoprazole DR) 40 Mg Tablet.dr 40 MG PO QAM Potassium Chloride ER (Potassium Chloride ER) 20 Meq Tablet.er 20 MEQ PO QAM TAKE WITH FOOD Tamsulosin ER (Tamsulosin ER) 0.4 Mg Cap.er.24h 0.8 MG PO QAM Scheduled PRN Acetaminophen (Acetaminophen) 500 Mg Tablet 500-1,000 MG PO Q6H PRN PRN For Pain Albuterol HFA (Proair HFA) 8.5 Gm Hfa.aer.ad 2 PUFFS INHALATION QID PRN PRN For Shortness of Breath Ibuprofen (Ibuprofen) 200 Mg Capsule 800 MG PO DIRECTED PRN PRN For Pain Loperamide (Loperamide) 2 Mg Tablet 2 MG PO Q4H PRN PRN For Diarrhea or Loose Stool Nitroglycerin SL (Nitroglycerin SL) 0.4 Mg Tab.subl 0.4 MG SL Q5MIN PRN PRN For Chest Pain General Time Seen by MD: 15:27 Chief Complaint Chest pain Hx Obtained From: Patient Arrived By: Ambulance Sudden in Onset?: Yes Onset Occurred: 1 - 4 hours ago Symptom Duration: Since onset Location: : Chest Quality: Same as prior, Painful, Sharp Radiation: : Arm left Severity: Current: Pain level 8 out of 10 Severity: Maximum: Pain level 10 out of 10 ("12") Associated with: Reports: Chest pain, Dizziness, Pain (L arm pain), Shortness of breath, Denies: Vision change Pertinent Negative: Pt denies other symptoms Recent Healthcare: No recent hospitalization, Recent doctor visit Past Medical History Past Medical History Notes: Patient states has had "nine stents" placed at [facility] 08/01/2016, 08/04/16, and 08/26/16 Multiple ED visits for CP, admitted for chest pain 11/21/2016 and 04/20/2017 with hospitalist diagnosis of narcotic seeking behavior Past Medical History CAD - multiple stents, cardiac caths 02/14, 03/12, 04/11, ad 04/17 w/stent placed to proximal LAD overlapping prior stent and "plavix non-responder" Syncope Type two diabetes with neuropathy Chronic back and leg pain Lower extremity DVT "years ago" per patient, details unclear History of migraines BPH Kidney Stones On Warfarin and Plavix HTN Seizure Spinal meningitis [place] 2014 Concern for TIA October 2016, MRI/MRA negative Reports: COPD, Congestive heart failure, Stroke Reports: Heroin use Past Surgical History Shoulder surgery (joint replacement) Left knee surgery Ganglion cyst in right hand Cardiac stents ("x9" - at [facility]) Reports: Cholecystectomy Family History Both of the patient's parents are still alive Smoking History Current Every Day Smoker Social History Alcohol Use: Denies alcohol use Drug Use: Denies drug use Other Social History: Good social support, , Local resident 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 Physical Exam Nursing note and vitals reviewed. Constitutional: Well-developed, well-nourished. Not diaphoretic. Morbidly obese. Laying in bed. Appears Uncomfortable. Head: Normocephalic and atraumatic. Mouth/Throat: Oropharynx is clear and moist. No oropharyngeal exudate. Eyes: EOM are normal. Pupils are equal, round, and reactive to light. Neck: Supple, no tracheal deviation. Cardiovascular: Normal rate, regular rhythm. Equal and intact distal pulses throughout. Pulmonary/Chest: Effort normal and breath sounds normal. No respiratory distress. Abdominal: Soft. No distension. There is no tenderness, rebound, or guarding. Musculoskeletal: Range of motion grossly intact, moving all extremities. No edema or tenderness appreciated. Neurological: AOx3. Grossly nonfocal exam. Strength and sensation intact and equal to bilateral upper and lower extremities. Skin: Warm and dry, no rashes or pallor appreciated. Psychiatric: Appropriate mood and affect. Behavior appears normal. Vital Signs Vital Signs Date Time Temp Pulse Resp B/P Pulse Ox O2 Delivery O2 Flow Rate FiO2 05/13/17 19:17 82 18 100/44 98 Room Air 05/13/17 18:37 95 22 96/53 95 Room Air 05/13/17 16:43 83 18 125/65 97 Room Air 05/13/17 15:32 37.4 94 22 111/64 98 Room Air Interpretation & Diagnostics Lab Results Interpretation Result Diagram: 05/13/17 1533 05/13/17 1533 Test 05/13/17 15:33 05/13/17 19:36 White Blood Count 8.8th/mm3 (3.8-10.1) Red Blood Count 4.76mil/mm3 (4.40-5.80) Hemoglobin 14.3g/dL (13.8-17.2) Hematocrit 40.8% (41.0-50.0) Mean Corpuscular Volume 85.7fL (81-100) Mean Corpuscular Hemoglobin 30.0pg (27.0-35.0) Mean Corpuscular Hemoglobin Concent 35.0% (32.0-37.0) Red Cell Distribution Width 13.2% (12.3-15.4) Platelet Count 231bil/L (150-400) Neutrophils (%) (Auto) 71.1% (40-74) Lymphocytes (%) (Auto) 21.0% (14-46) Monocytes (%) (Auto) 6.3% (4-12) Eosinophils (%) (Auto) 1.2% (0-5) Basophils (%) (Auto) 0.3% (0-3) Prothrombin Time 9.9sec (8.1-12.5) Prothromb Time International Ratio 0.93ratio Sodium Level 133mEq/L (134-144) Potassium Level 3.7mEq/L (3.5-5.2) Chloride Level 97mEq/L (97-108) Carbon Dioxide Level 19mmol/L (18-29) Blood Urea Nitrogen 19mg/dL (6-24) Creatinine 0.87mg/dL (0.76-1.27) Estimat Glomerular Filtration Rate 99mL/min (>59) Glucose Level 244mg/dL (60-99) Calcium Level 8.9mg/dL (8.5-10.1) Magnesium Level 1.9mg/dL (1.6-2.6) Total Bilirubin 0.3mg/dL (0.0-1.2) Aspartate Amino Transf (AST/SGOT) 24U/L (0-50) Alanine Aminotransferase (ALT/SGPT) 16U/L (0-44) Alkaline Phosphatase 126U/L (25-150) Pro-B-Type Natriuretic Peptide 121.6pg/mL (0-121) Total Protein 7.4g/dL (6.4-8.4) Albumin 3.8g/dL (3.4-5.0) Lipase 5U/L (13-60) Troponin T < 0.010ug/L (0.0-0.011) General Lab Results Interp 1: Troponin # 1 normal, Troponin # 2 normal ECG Interpretation ECG Interpretation: Sinus Rhythm Rate 93 Unchanged from prior (05/10/2017) Time: 15:24 Interpreted by: ED physician X-Ray Chest Interpretation Chest Xray Interpretation: IMPRESSION: Minimal appearance of slight increased streaky right basilar opacity possibly representing developing pneumonia. Dictated by: China Anderson M.D. on 05/13/2017 at 16:22 Interpretation / Wet Read by: Interpret - Radiologist Re-Eval/Medical Decision Med Decision/Clinical Course In summary, 47-year-old male with a PMHx notable for coronary artery disease who presents to the ED for evaluation of exertional radiating to his left arm since earlier today. Differential includes ACS, PE, PTX, aortic dissection, myocarditis/pericarditis, abdominal etiology such as cholecystitis, MSK pain. Initial troponin negative. EKG demonstrates sinus rhythm with no acute ischemic changes. Lowest risk by Wells. No evidence of pneumothorax on chest x- ray or exam. Pain not described as tearing through to the back, CXR w/ no evidence of widened mediastinum, normal neuro exam, and equal pulses to bilateral upper and lower extremities; aortic dissection seems very unlikely. Neither clinical presentation, exam, or EKG seem c/w pericarditis or myocarditis. No abdominal pain or tenderness. Rest of labs reviewed, notable for a BNP of 121, down from 250 in March, glucose of 244. CBC, CMP, coags otherwise within normal limits. Given patient's concerning story, concern for unstable angina. IV fluids, nitroglycerin, and IV heparin drip were initiated, and the patient was admitted for further management and evaluation. Patient agreeable to plan, no further questions. Time of Eval: 16:10 Re-Evaluation/Progress Note: Pt is requesting pain medication at this time. Time of Eval: 17:51 Patient Status: Condition improved Re-Evaluation/Progress Note: His pain has improved but is still present. He is informed of his results and diagnosis at this time. All questions about the intended treatment plan are addressed. He understands and agrees with the plan. Consultation : Referral / Consult Name: Michael Pena MD Consulted With: Hospitalist Call Returned at: 17:50 Machine Filler Shredder: Will see patient, Agrees with eval, Agrees with plan, Accepts admit Counseled Regarding: Diagnosis, Lab results, Need for admission Discharge & Departure Primary Impression: Unstable angina Disposition: ADMITTED TO HOSPITAL Discharge Condition All VS Reviewed: Yes Condition: Stable Referrals: Santiago Funez MD (PCP) Crit Care Except Billable Proc Time Spent: 30-74 minutes Services Performed: Patient management by me, Time spent at bedside, Reviewing test results, Reviewing imaging, Discussing patient care, Documentation in record, Time with fam/surrogate Scribe Attestation Portions of this note were transcribed by Perla Walker. I, Dr. Domínguez personally performed the history, physical exam and medical decision-making; I reviewed and confirmed the accuracy of the information in the transcribed note. Signed by: Cindy Ford, 05/13/17 7900. copies to: Santiago Funez MD, William B MD May 13, 2017 15:30 PERLA WALKER May 13, 2017 15:58
[2017-05-13 15:40] LABS: BASOPHILS % (AUTO) 0.3 % (0-3); EOSINOPHILS % (AUTO) 1.2 % (0-5); MONOCYTES % (AUTO) 6.3 % (4-12); Mean Corpuscular Volume 85.7 fL (81-100); NEUTROPHILS % (AUTO) 71.1 % (40-74); Platelet Count 231 bil/L (150-400)
[2017-05-13 15:52] LABS: INR 0.93 ratio
[2017-05-13 16:01] LABS: TROPONIN T < 0.010 ug/L (0.0-0.011)
[2017-05-13 16:11] LABS: Magnesium 1.9 mg/dL (1.6-2.6)
--- NOTE | 2017-05-13 16:25 | DRSVH ---
PROCEDURE: X-RAY CHEST ONE VIEW, PORTABLE ([id number]) INDICATIONS: CHEST PAIN TECHNIQUE: One view of the chest was acquired. COMPARISON: [facility], CR, XR CHEST 1VW (PORTABLE), 05/10/2017, 15:22. FINDINGS: Surgical changes and devices: None. Lungs and pleura: No pleural effusions or pneumothorax. Minimal appearance of slight increased strea ky opacity in the right base. Mediastinum: Mediastinal contours appear normal. Heart size is normal. Bones and chest wall: No suspicious bony lesions. Overlying soft tissues appear unremarkable. IMPRESSION: Minimal appearance of slight increased streaky right basilar opacity possibly representin g developing pneumonia. Dictated by: China Anderson M.D. on 05/13/2017 at 16:22 Approved by: China Anderson M.D. on 05/13/2017 at 16:23
[2017-05-13] MEDS ORDERED: 0.9% Sodium Chloride 1,000 ML IV ONE (16:34)
[2017-05-13] MEDS ORDERED: Nitroglycerin 50 mg/250 mL D5W 50,000 MCG in IV Premix 1 EACH IV ONE (16:34)
[2017-05-13] MEDS ORDERED: Heparin 25K Unit/500mL 0.45 NS 25,000 UNIT in IV Premix 1 EACH IV ONE (16:35)
[2017-05-13] MEDS ORDERED: Heparin 5,000 Unit/mL Inj IVPUSH ONE (16:35)
[2017-05-13] MEDS ORDERED: Nitroglycerin 2% 1 Gm Ointment TOPICAL SCH (16:45)
[2017-05-13] MEDS ORDERED: Ondansetron 2 mg/mL 2 mL Inj IVPUSH PRN (18:25)
[2017-05-13] MEDS ORDERED: Polyethylene Glycol (PEG) 17 Gm Powder PO PRN (18:25)
[2017-05-13] MEDS ORDERED: Alum-Mag Hydrox-Simeth 30 mL Suspension PO PRN (18:25)
--- NOTE | 2017-05-13 18:29 | PCM.HPMED ---
Subjective Date of Service May 13, 2017 Primary Provider: Admitting Physician: Primary Care Physician: Santiago Funez MD Attending Physician: Chief Complaint: Unstable Angina History of Present Illness: A 46 year old male with history of CAD, type II diabetes mellitus, CHF, stroke, CA, hypertension, frequent ED visits due to angina and multiple cardiac stents presents to the ED via EMS complaining of sudden onset sharp, left-sided chest pain that began 3 hours prior to arrival. According to EMS, the patient was hypotensive en route. The episode of "12/10" chest pain lasted approximately 5 minutes. His symptoms feel similar to his previous episodes of angina. The episode today began while he was sitting in the car and was associated with nausea and lightheadedness. He states that the pain radiates/"pulsates" to his left arm. He reports that his pain is exacerbated by movement and walking. He rates his current pain as an 8/10. He took 1 Nitro with little relief. He denies any visual disturbances, SOB, vomiting or one-sided weakness, diarrhea, constipation or abdominal pain. Patient was seen in the ED on 05/10 for identical symptoms and was discharged in good condition with 15 oxycodone and a plan to follow up with his PCP. Last echocardiogram - 12/2016 revealed basal mid inferior and inferoseptal hypokinesis with normal EF. In ER: troponin X 1 -ve, EKG - unchanged Allergies Coded Allergies: Honey Bee (Verified Allergy, Severe, anaphylaxis, 05/10/17) Penicillins (Verified Allergy, Severe, SWELLING, HIVES, ITCHING, 05/10/17) TAPE (Verified Allergy, Mild, blisters, 05/10/17) hydromorphone (Verified Adverse Reaction, Intermediate, HALLUCINATIONS, "HIGH", 05/10/17) sumatriptan (Verified Adverse Reaction, Intermediate, CONVULSIONS, SHAKES , 05/10/17) Constitutional: No: Chills, Fever, Malaise, Other, Sweats, Weakness Eyes: Denies: Blurred Vision, Conjunctive Inflammation, Double Vision, Eyelid Inflammation, Other, Pain, Pigmentosa, Redness, Retinitis, Vision Changes ENT: Denies: Dental Problems, Dysphagia, Ear Discharge, Ear Pain, Hoarseness, Membranes Dry, Nasal Congestion, Nose Discharge, Nose Pain, Other, Throat Pain, Tinnitus, Ulcers/Sores in Mouth Cardiovascular: Reports: Chest Pain (as per HPI), Lt Headedness, Palpitations Respiratory: Denies: Cough, Hemoptysis, Other, Pleuritic Chest Pain, SOB with Exertion, Shortness of Breath, Sputum, Wheezing Gastrointestinal: Denies: Abdominal Pain, Change in Appetite, Constipation, Diarrhea, Heartburn, Hematochezia, Melena, Nausea, Other, Use of Laxatives, Vomiting Genitourinary: Denies: Anuria, Change in Frequency, Dysuria, Hematuria, Incontinence, Nocturia, Other, Retention Musculoskeletal: Denies: Back Pain, Deformity, Limitation of Function, Neck Pain, Other, Redness, Shoulder Pain, Swelling Skin: Denies: Bruising, Dry or Flakiness, Jaundice, Lesions, Other, Rash, Scars , Ulcers Neurological: Denies: Change in Speech, Confusion, Dizziness, Dyskinesia, Hyper Reflexia, Incoordination, Numbness, Other, Seizures, Somnolence, Tremors, Weakness Psychologic: Denies: Agitation, Disorientation, Excitation, Giddiness, Hostile , Insomnia, Instability, Leslee, Nervousness, Night Terrors, Other, Perseveration , Phobia, Sexual Disturbances PMH CAD - multiple stents, cardiac caths 02/14, 03/12, 04/11, ad 04/17 w/stent placed to proximal LAD overlapping prior stent and "plavix non-responder" Syncope Type two diabetes with neuropathy Chronic back and leg pain Lower extremity DVT "years ago" per patient, details unclear History of migraines BPH Kidney Stones On Warfarin and Plavix HTN CA 2014 Concern for TIA October 2016, MRI/MRA negative Reports: COPD, Congestive heart failure, Stroke Reports: Heroin use Surgical History Shoulder surgery (joint replacement) Left knee surgery Ganglion cyst in right hand Cardiac stents ("x9" - at Prov) Reports: Cholecystectomy Social History Hx Alcohol Use: No (on holidays; social occassional) Hx Substance Use: No Hx Tobacco Use: Yes Smoking Status: Current Every Day Smoker Exam Vital Signs Vital Sign - Last Date Time Temp Pulse Resp B/P Pulse Ox O2 Delivery O2 Flow Rate FiO2 05/13/17 16:43 83 18 125/65 97 Room Air 05/13/17 15:32 37.4 Exam Nursing note and vitals reviewed. Constitutional: Well-developed, well-nourished. Not diaphoretic. Morbidly obese. Laying in bed. Appears Uncomfortable. Head: Normocephalic and atraumatic. Mouth/Throat: Oropharynx is clear and moist. No oropharyngeal exudate. Eyes: EOM are normal. Pupils are equal, round, and reactive to light. Neck: Supple, no tracheal deviation. Cardiovascular: Normal rate, regular rhythm. Equal and intact distal pulses throughout. Pulmonary/Chest: Effort normal and breath sounds normal. No respiratory distress. Abdominal: Soft. No distension. There is no tenderness, rebound, or guarding. Musculoskeletal: Range of motion grossly intact, moving all extremities. No edema or tenderness appreciated. Neurological: AOx3. Grossly nonfocal exam. Strength and sensation intact and equal to bilateral upper and lower extremities. Skin: Warm and dry, no rashes or pallor appreciated. Psychiatric: Stressed. Lab and Diagnostics Result Diagram: 05/13/17 1533 05/13/17 1533 Assessment & Plan > Chest pain - as per patient, crushing radiating to his arm and shoulder - significant history of CAD s/p 9 stents - Echo ordered - Trops X 1 -ve, trend - EKG X1 unchanged, trend - Heparin drip - morphine prn for pain - nitroglycerin for angina, however if bp low, will hold - continue home meds - discussed with Dr. 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 and gastroparesis; present on admission; ongoing - Glucose 244 at admission , Hgba1c ~ 10 a month ago -patient takes Lantus 80 mg BID as per records, will give 40 lantus tonight as patient is npo -Insulin correction dose (high) - gabapentin continue -NPO for now >Reported chronic heart failure; present on admission; stable - Continue home medications including diuretics >History of DVT; present on admission; stable -Patient reportedly on warfarin although not therapeutic -on heparin drip for now > H/o seizures -Patient had seizures as a boy, and intermittently through adulthood with his last seizure 3 months ago; no meds after childhood - on keppra, will continue > Smoking counselling - discussed with patient the harms of smoking, and counselled to quit Disposition: Patient is being admitted to [facility] on inpatient status for the expected length of stay greater than 2 midnights due to severity of presentation , duration treatment, risk of adverse events. Pain Evaluation: Adequate Pain Control VTE Prophylaxis: on heparin drip Resuscitation Status: CPR: Attempt Resuscitation Resuscitation Status: CPR: Attempt Resuscitation Time spent 60 mins Michael Pena MD May 13, 2017 18:29
[2017-05-13] MEDS ORDERED: Heparin 5,000 Unit/mL Inj IVPUSH PRN (19:00)
[2017-05-13] MEDS ORDERED: Heparin 25K Unit/500mL 0.45 NS 25,000 UNIT in IV Premix 1 EACH IV SCH (19:00)
[2017-05-13] MEDS ORDERED: Albuterol HFA 60 Puff 8 Gm Inhaler INHALATION PRN (19:05)
[2017-05-13] MEDS ORDERED: GABAPENTIN PO SCH (19:05)
[2017-05-13] MEDS ORDERED: NICOTINE 21 MG/24 HR TRANSDERM SCH (19:05)
[2017-05-13] MEDS ORDERED: Glucose 40% Oral Gel 15 Gm Tube PO PRN ×3 (19:25→19:35)
[2017-05-13] MEDS ORDERED: Albuterol 2.5 mg/3 mL Inhalation Solution NEB PRN (19:40)
[2017-05-13] MEDS: levETIRAcetam 500 mg Tablet PO SCH (20:30)
[2017-05-13] MEDS ORDERED: Insulin GLARgine 100 Unit/mL Syringe SUBQ SCH (20:30)
[2017-05-13] MEDS ORDERED: Insulin GLARgine 100 Unit/mL Syringe SUBQ ONE (20:30)
[2017-05-13] MEDS: Insulin LISPRO 300 Unit/3 mL Inj SUBQ SCH (21:52)
[2017-05-13] MEDS ORDERED: oxyCODONE-Acetamin 10-325 mg Tablet PO SCH (23:55)
[2017-05-14] MEDS: oxyCODONE-Acetamin 10-325 mg Tablet PO PRN ×4 (01:22→17:57)
[2017-05-14] MEDS ORDERED: HYDROcodone-APAP 7.5-325 mg Tablet PO ONE (02:50)
[2017-05-14] MEDS ORDERED: oxyCODONE-Acetamin 10-325 mg Tablet PO ONE (02:50)
[2017-05-14 03:11] VITALS: BP 129/78; PULSE 64; RESP 18; O2SAT 94
[2017-05-14 03:12] LABS: BASOPHILS % (AUTO) 0.3 % (0-3); EOSINOPHILS % (AUTO) 1.2 % (0-5); MONOCYTES % (AUTO) 8.6 % (4-12); Mean Corpuscular Hemoglobin 29.8 pg (27.0-35.0); Mean Corpuscular Volume 87.3 fL (81-100); NEUTROPHILS % (AUTO) 56.6 % (40-74); Platelet Count 183 bil/L (150-400)
[2017-05-14] MEDS: Insulin LISPRO 300 Unit/3 mL Inj SUBQ SCH ×4 (08:00→22:02)
[2017-05-14 08:02] VITALS: BP 122/74; PULSE 88; RESP 15; O2SAT 95
[2017-05-14] MEDS: Pantoprazole 40 mg ER24 Tablet PO SCH (08:04)
[2017-05-14] MEDS: MeTOProlol XL 25 mg ER24 Tablet PO SCH (08:04)
[2017-05-14] MEDS: levETIRAcetam 500 mg Tablet PO SCH ×2 (08:04→21:48)
[2017-05-14 10:51] VITALS: PULSE 61
--- NOTE | 2017-05-14 11:20 | DRSVH ---
[facility] [address] [place] [address] Echocardiogram Report Name: KAJAL TELLO DStudy Enrrique e: 05/14/2017 Height: 68 in Hospital Exam Location: [facility] Weight: 267 lb Gender: Male BSA: 2.3 m2 : 1970 Age: 47 yrs BP: 129/78 m mHg Reason For Study: Chest pain Ordering Physician: [facility]PITAL[facility] Performed By: Mian Lal Referring Physician: Marvin Otero Interpretation Summary The ejection fraction is estimated to be 55-60%. There are no obvious focal wall motion abnormalities noted but poor endocardial definition reduces the sensitivity for the detection of such. Previously noted inferior WMA is not well visualized on this suboptimal exam. There is no significant valvular heart disease. Procedure: A two-dimensional transthoracic echocardiogram with color flow and Doppler was performed. The study quality was technically difficult. A contrast injection of Definity was performed to improve assessment of LV function. Comparison is made with the echocardiogram of 01/19/17. The suprasternal notch views were difficult to obtain and are suboptimal in quality. The subcostal views were difficult to obtain and are suboptimal in quality. The patient was in normal sinus rhythm during the exam. Left Ventricle: The left ventricle is normal in size. There is normal left ventricular wall thickness. The ejection fraction is estimated to be 55-60%. There are no obvious focal wall motion abnormalities noted but poor endocardial definition reduces the sensitivity for the detection of such. Right Ventricle: The right ventricle is not well visualized. The right ventricle grossly appears normal in size with probable normal systolic function. Atria: The left atrial size is normal. Right atrium not well visualized. Mitral Valve: The mitral valve is grossly normal. There is no mitral regurgitation noted. Aortic Valve: The aortic valve is grossly normal. The aortic valve opens well. No aortic regurgitation is present. Tricuspid Valve: The tricuspid valve is not well visualized. Pulmonary artery pressures cannot be estimated because of the lack of a measurable TR jet velocity. Pulmonic Valve: The pulmonic valve is not well seen, but is grossly normal. There is a trace or physiologic amount of pulmonic regurgitation. Great Vessels: The aortic root is normal size. The ascending aorta is mildly enlarged. The pulmonary artery is normal size. The inferior vena cava was not visualized. Pericardium/ Pleura There is no pericardial effusion. There is no pleural effusion. MMode/2D Measurements & Calculations LVIDd: 5.3 cm RA long axis LVOT diam LVIDs: 3.7 cm LA A2 area: 15.8 cm FS: 29.7 % LA A4 area: 17.5 cm RA area AoV Opening EPSS: 0.44 cm LA length (vol): 5.3 cm IVSd: 0.81 cm LA vol: 44.3 ml : 13.3 cm Ao root diam LVPWd: 0.93 cm LA vol index RA vol : 31.9 ml asc Aorta : 19.2 ml/m2 RA Diam: 3.5 cm : 13.8 mm2 LV ahmadi. diameter/BSA LV sys. diameter/BSA (cm/m^2): 2.3 (cm/m^2): 1.6 Doppler Measurements & Calculations Ao V2 max MV E max stan MV E/A: 1.0 PA V2 max : 122.7 cm/sec : 90.9 cm/sec Med Peak E' Stan : 60.6 cm/sec Ao max P.0 mmHg MV A max stan PA mean PG Ao mean P.5 mmHg : 89.0 cm/sec E/E' med: 14.4 : 0.79 mmHg LVOT Max Stan Lat Peak E' Stan PA Accel Time : 84.5 cm/sec : 0.09 sec TATO(I,D): 3.1 cm E/E' lat: 13.5 sev ratio: 0.68 E/e' average Pulm A Revs Dur MV A dur : 0.10 sec MV dec time: 0.24 secAo V2 mean LV V1 max PG PA V2 mean : 88.6 cm/sec : 41.8 cm/sec Ao V2 VTI: 24.6 cm LV V1 VTI TATO(V,D): 3.2 cm2 : 16.6 cm TATO indexed to JAME Mcneil - MV A (cm^2/m^2): 1.4 Dur: -0.01 msec Electronically signed by: Jose Whitney on Reading Physician:05/14/2017 11:19 AM
[2017-05-14 12:34] VITALS: BP 120/72; PULSE 64; RESP 16; O2SAT 96
[2017-05-14] MEDS ORDERED: Isosorbide Mononitrate 60 mg ER24 Tablet PO SCH (16:05)
--- NOTE | 2017-05-14 16:48 | DRSVH ---
PROCEDURE: 1 DAY PHARMACOLOGICAL STRESS TEST Rest and pharmacological stress myocardial perfusion SPECT with gated imaging and ejection fraction RADIOPHARMACEUTICAL: 15.1 mCi Tc-99m tetrafosmin IV at rest and 45.0 mCi Tc-99m tetrafosmin IV at pea k effect of pharmacological stress. A [id number] was performed. INDICATIONS: 47 year-old male with chest pain. The patient has coronary disease with history of myoc ardial infarction and 2015 and coronary stenting in March of 2016. TECHNIQUE: Radiopharmaceutical was injected at peak stress test, and also at rest. SPECT images wer e obtained. SPECT myocardial perfusion images were displayed in short axis, horizontal long axis, an d vertical long axis views. Gated images were reviewed using [employer] software. COMPARISON: [facility], [place] CARDIAC STRESS TEST PHARM, 10/24/2016, 13:00. CARDIAC STRESS: The patient started on an exercise stress test using standard Richard protocol. The pa tient exercised for 3 minutes and 8 seconds with functional aerobic impairment (RADHA) 0 percent and re ached 58% maximum predicted heart rate. The stress test was switched to Lexiscan infusion. A pharmacologic stress test was performed under the supervision of an attending staff, using an infus ion of Lexiscan. Hemodynamic data: There is hypotensive and blunted heart rate response to exercise pharmacologic str ess. Symptoms: The patient reported chest pain, 5-6/10 with exercise. Aminophylline: Not needed EKG: No diagnostic changes of ischemia; no ectopy. FINDINGS: Raw data: There is good myocardial uptake of radiotracer. No significant motion artifacts. Left ventricle function: Gated images demonstrate normal left ventricular wall thickening. No segme ntal wall motion abnormalities. No transient ischemic dilation. Left ventricle resting end diastoli c volume is normal. Left ventricle stress ejection fraction is 51%; normal range is above 45%. Myocardial perfusion: There is a tiny, very mild, reversible defect in the mid anterior wall. misael l distribution of activity in the right and left ventricular myocardium. Comparison to prior examinations: Compared with the last exam on 10/24/2016, a tiny fixed defect migh t be present in the same territory. IMPRESSION: 1. Probably abnormal myocardial perfusion scan. Possible tiny, very mild ischemia in the mid anterio r wall verus artifact. 2. Normal left ventricular volume and systolic function. 3. The patient experienced chest pain during exercise, 5-6/10 in severity. He failed to reach the tar get heart rate on Richard protocol. Exercise stress test was switched to Lexiscan infusion. No diagnost ic EKG changes for ischemia. PQRS ATTESTATIONS: Measure 322 - Is this imaging test primarily performed on a low-risk surgery patient for preoperative evaluation within 30 days preceding their low-risk non-cardiac surgery? Low-risk surgery is defined as cardiac or myocardial infarction less than 1%, including (but not limited to) endoscopic pr ocedures, superficial procedures, cataract surgery, and excisional breast surgery: Answer: No Measure 323 - Is this imaging test performed primarily for the monitoring of an asymptomatic patient who had percutaneous coronary intervention on the visit date or within 2 years of the visit date? An swer: No Measure 324 - Is this imaging test performed primarily for the initial detection and risk assessment on an asymptomatic, low coronary heart disease patient? Low CHD risk definition = clinicians should consider the maximum number of available patient factors used to estimate risk based on [place] (A TP III criteria), typically age, gender, diabetes, smoking status, and use of blood pressure medicati on, and integrate age appropriate estimates for missing elements, such as LDL or standard blood press ure. Answer: No Dictated by: Nicholas Zamora M.D. on 05/14/2017 at 16:32 Approved by: Nicholas Zamora M.D. on 05/14/2017 at 16:46
[2017-05-14 16:54] VITALS: BP 126/72; PULSE 64; O2SAT 96
--- NOTE | 2017-05-14 17:59 | PCM.PNMED ---
Subjective Date of Service May 14, 2017 Subjective Overnight, patient reports chest pain refractory to Morphine and Percocet. VSS, tele SR 70s. No other acute event. Today, patient reports that his chest pain improves slightly, but he reports moderate headache, neck pain, and back pain. He complains that his home Endocet was cut in half and he needs the dose to increase. He denies any SOB, palpitations, nausea, or vomiting. Patient admits that the chest pain has become more frequent and is similar to his prior NC. Exam Vital Signs Vital Sign - Last Date Time Temp Pulse Resp B/P Pulse Ox O2 Delivery O2 Flow Rate FiO2 05/14/17 16:54 37.0 64 126/72 96 Room Air 05/14/17 12:34 16 Intake and Output 05/13/17 05/13/17 05/14/17 Cumulative From/Thru 15:00 23:00 07:00 05/13/17 15:32 - 05/14/17 06:02 Intake Total 1000 ml 300 ml 1300 ml Output Total 600 ml 600 ml Balance 1000 ml -300 ml 700 ml Intake Oral 300 ml 300 ml IV Total 1000 ml 1000 ml Output Urine Total 600 ml 600 ml Exam Constitutional: Morbidly obese. Not diaphoretic. Laying in bed. Appears Uncomfortable but in no acute distress. Head: Normocephalic and atraumatic. Mouth/Throat: Oropharynx is clear and moist. No oropharyngeal exudate. Eyes: EOM are normal. Pupils are equal, round, and reactive to light. Neck: Supple, no tracheal deviation. Cardiovascular: Normal rate, regular rhythm. Equal and intact distal pulses throughout. Pulmonary/Chest: Effort normal and breath sounds normal. No respiratory distress. Abdominal: Soft. No distension. There is no tenderness, rebound, or guarding. Musculoskeletal: Range of motion grossly intact, moving all extremities. No edema or tenderness appreciated. Neurological: AOx3. Grossly nonfocal exam. Strength and sensation intact and equal to bilateral upper and lower extremities. Skin: Warm and dry, no rashes or pallor appreciated. Extremities: trace bilateral LE edema, tender to palpation, positive calf pain, which patient attributes to neuropathy. Psychiatric: anxious, poor insight and judgement. IVs and Medications Medications Reviewed: Medications were reviewed in detail Lab and Diagnostics Result Diagram: 05/14/17 0250 05/14/17 0250 X-Rays, CTs and MRIs PROCEDURE: X-RAY CHEST ONE VIEW, PORTABLE IMPRESSION: Minimal appearance of slight increased streaky right basilar opacity possibly representing developing pneumonia. Dictated by: China Anderson M.D. on 05/13/2017 at 16:22 Cardiac Echo Impressions Interpretation Summary The ejection fraction is estimated to be 55-60%. There are no obvious focal wall motion abnormalities noted but poor endocardial definition reduces the sensitivity for the detection of such. Previously noted inferior WMA is not well visualized on this suboptimal exam. There is no significant valvular heart disease. Additional Diagnostics PROCEDURE: 1 DAY PHARMACOLOGICAL STRESS TEST Rest and pharmacological stress myocardial perfusion SPECT with gated imaging and ejection fraction RADIOPHARMACEUTICAL: 15.1 mCi Tc-99m tetrafosmin IV at rest and 45.0 mCi Tc-99m tetrafosmin IV at peak effect of pharmacological stress. A usa-nyc-tphrapvo was performed. INDICATIONS: 47 year-old male with chest pain. The patient has coronary disease with history of myocardial infarction and 2015 and coronary stenting in March of 2016. TECHNIQUE: Radiopharmaceutical was injected at peak stress test, and also at rest. SPECT images were obtained. SPECT myocardial perfusion images were displayed in short axis, horizontal long axis, and vertical long axis views. Gated images were reviewed using [employer] software. COMPARISON: [facility], [place] CARDIAC STRESS TEST PHARM, 2015, 13:00. CARDIAC STRESS: The patient started on an exercise stress test using standard Richard protocol. The patient exercised for 3 minutes and 8 seconds with functional aerobic impairment (RADHA) 0 percent and reached 58% maximum predicted heart rate. The stress test was switched to Lexiscan infusion. A pharmacologic stress test was performed under the supervision of an attending staff, using an infusion of Lexiscan. Hemodynamic data: There is hypotensive and blunted heart rate response to exercise pharmacologic stress. Symptoms: The patient reported chest pain, 5-6/10 with exercise. Aminophylline: Not needed EKG: No diagnostic changes of ischemia; no ectopy. FINDINGS: Raw data: There is good myocardial uptake of radiotracer. No significant motion artifacts. Left ventricle function: Gated images demonstrate normal left ventricular wall thickening. No segmental wall motion abnormalities. No transient ischemic dilation. Left ventricle resting end diastolic volume is normal. Left ventricle stress ejection fraction is 51%; normal range is above 45%. Myocardial perfusion: There is a tiny, very mild, reversible defect in the mid anterior wall. normal distribution of activity in the right and left ventricular myocardium. Comparison to prior examinations: Compared with the last exam on 10/24/2016, a tiny fixed defect might be present in the same territory. IMPRESSION: 1. Probably abnormal myocardial perfusion scan. Possible tiny, very mild ischemia in the mid anterior wall verus artifact. 2. Normal left ventricular volume and systolic function. 3. The patient experienced chest pain during exercise, 5-6/10 in severity. He failed to reach the target heart rate on Richard protocol. Exercise stress test was switched to Lexiscan infusion. No diagnostic EKG changes for ischemia. PQRS ATTESTATIONS: Measure 322 - Is this imaging test primarily performed on a low-risk surgery patient for preoperative evaluation within 30 days preceding their low-risk non- cardiac surgery? Low-risk surgery is defined as cardiac or myocardial infarction less than 1%, including (but not limited to) endoscopic procedures, superficial procedures, cataract surgery, and excisional breast surgery: Answer : No Measure 323 - Is this imaging test performed primarily for the monitoring of an asymptomatic patient who had percutaneous coronary intervention on the visit date or within 2 years of the visit date? Answer: No Measure 324 - Is this imaging test performed primarily for the initial detection and risk assessment on an asymptomatic, low coronary heart disease patient? Low CHD risk definition = clinicians should consider the maximum number of available patient factors used to estimate risk based on [place] ( ATP III criteria), typically age, gender, diabetes, smoking status, and use of blood pressure medication, and integrate age appropriate estimates for missing elements, such as LDL or standard blood pressure. Answer: No Dictated by: Nicholas Zamora M.D. on 05/14/2017 at 16:32 Approved by: Nicholas Zamora M.D. on 05/14/2017 at 16:46 Assessment & Plan 46 year old male with history of CAD, type II diabetes mellitus, CHF, stroke, NC , hypertension, frequent ED visits due to angina and multiple cardiac stents presents to the ED via EMS complaining of sudden onset sharp, left-sided chest pain that began 3 hours prior to arrival. Chest pain, POA, active. - as per patient, crushing radiating to his arm and shoulder. Given the constant nature of the chest pain that refractory to Nitro, it is likely that his chest pain is related to the chronic neck and back pain. - However, patient has significant history of CAD s/p 9 stents and uncontrolled DM, thus at risk for a cardiovascular event. - Echo reveals no significant change compared to previous one. Stress test is equivocal as above. - Trops X 3 negative. D/C heparin drip. - EKG X1 unchanged - Pain is uncontrolled with oral Percocet. Will have morphine prn for pain. - nitroglycerin for angina, however if bp low, will hold - continue home meds - discussed with Dr. 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 - Need to follow up with Endocrinology as outpatient. Reported chronic heart failure; present on admission; stable - Continue home medications: Imdur, Metoprolol, Lisinopril, Furosemide History of DVT; present on admission; stable -Patient reportedly on warfarin in the past. -Bilateral calf pain on exam, which is unclear if chronic. -Will check venous U/S and Heparin SQ for DVT prophylactic. H/o seizures, presume stable. -Patient had seizures as a boy, and intermittently through adulthood with his last seizure 3 months ago; no meds after childhood - on keppra, will continue History of smoking, chronic. - discussed with patient the harms of smoking, and counselled to quit. - Nicotine patch available upon request. BPH, chronic. - Resume home meds. Morbidly obesity, BMI of 40.7, chronic. - Recommend sleep study as outpatient to rule out TAWANNA. Disposition: Patient was initially admitted on observation, but this has been changed to inpatient status for the expected length of stay greater than 2 midnights due to severity of presentation, duration treatment, risk of adverse events. Pain Evaluation: Adequate Pain Control VTE Prophylaxis: Sub-Q Heparin (Unfractionated) VTE Mechanical Devices: Intermittant Pneumatic CD Resuscitation Status: CPR: Attempt Resuscitation Attending Statement The patient was seen and examined with staff. Agree with all attached documentation. Donna Garcia DO May 14, 2017 17:18 Anuj Abraham MD May 15, 2017 16:44
--- NOTE | 2017-05-14 18:51 | DRSVH ---
PROCEDURE: US VENOUS LEG DUPLEX BILATERAL INDICATIONS: Bilateral calf pain, SOB TECHNIQUE: Real-time imaging, as well as color and pulse Doppler interrogation, were performed of the deep veins of both legs from the inguinal ligament to the popliteal fossa. COMPARISON: None. FINDINGS: The deep veins are normally compressible, and free of intraluminal thrombus. Color and pu lse Doppler demonstrate normal phasic intravascular flow. There is normal augmentation response to d istal compression maneuver. IMPRESSION: No evidence for deep venous thrombosis is found in the right lower extremity with this d uplex venous Doppler study. No evidence for deep venous thrombosis is found in the left lower extremity with this duplex venous D oppler study. Dictated by: Thomas Tejada M.D. on 05/14/2017 at 18:49 Approved by: Thomas Tejada M.D. on 05/14/2017 at 18:49
[2017-05-14 20:06] VITALS: BP 129/75; PULSE 62; RESP 18; O2SAT 95
[2017-05-14] MEDS ORDERED: Insulin GLARgine 100 Unit/mL Syringe SUBQ SCH (21:55)
[2017-05-15 00:26] VITALS: BP 115/73; PULSE 75; RESP 18; O2SAT 97
[2017-05-15] MEDS: Heparin 5,000 Unit/mL Inj SUBQ SCH ×2 (00:26→07:49)
[2017-05-15] MEDS: oxyCODONE-Acetamin 10-325 mg Tablet PO PRN ×3 (00:27→12:18)
[2017-05-15 04:21] VITALS: BP 119/76; PULSE 65; RESP 18; O2SAT 96
[2017-05-15 05:34] VITALS: PULSE 70
[2017-05-15 06:53] LABS: Magnesium 2.1 mg/dL (1.6-2.6)
[2017-05-15] MEDS: MeTOProlol XL 25 mg ER24 Tablet PO SCH (07:47)
[2017-05-15] MEDS: Pantoprazole 40 mg ER24 Tablet PO SCH (07:47)
[2017-05-15 08:00] VITALS: PULSE 74
[2017-05-15 08:04] LABS: BASOPHILS % (AUTO) 0.4 % (0-3); EOSINOPHILS % (AUTO) 1.8 % (0-5); MONOCYTES % (AUTO) 10.2 % (4-12); Mean Corpuscular Hemoglobin 29.8 pg (27.0-35.0); Mean Corpuscular Volume 90.2 fL (81-100); NEUTROPHILS % (AUTO) 62.8 % (40-74); Platelet Count 197 bil/L (150-400)
[2017-05-15] MEDS: Insulin LISPRO 300 Unit/3 mL Inj SUBQ SCH ×2 (08:07→12:23)
[2017-05-15] MEDS: levETIRAcetam 500 mg Tablet PO SCH (08:30)
[2017-05-15 09:34] VITALS: BP 118/65; PULSE 83; RESP 18; O2SAT 95
--- NOTE | 2017-05-15 12:27 | PCM.DC.MED ---
Discharge Summary Date of Service May 15, 2017 Dates of Hospitalization Date of Hospital Admission May 13, 2017 at 20:08 Date of Discharge: May 15, 2017 Providers: Admitting Physician: Michael Pena MD Primary Care Physician: Santiago Funez MD Attending Physician: Shaun Meyer DO Diagnosis at Time of Discharge Diagnosis at Time of Discharge Chest pain, POA, active. 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 History of smoking, chronic. BPH, chronic. Morbidly obesity, BMI of 40.7, chronic. Consultations Cardiology, Dr Gutierrez Procedures XRay, CTs & MRIs PROCEDURE: X-RAY CHEST ONE VIEW, PORTABLE IMPRESSION: Minimal appearance of slight increased streaky right basilar opacity possibly representing developing pneumonia. Dictated by: China Anderson M.D. on 05/13/2017 at 16:22 Cardiac Echo Impression Interpretation Summary The ejection fraction is estimated to be 55-60%. There are no obvious focal wall motion abnormalities noted but poor endocardial definition reduces the sensitivity for the detection of such. Previously noted inferior WMA is not well visualized on this suboptimal exam. There is no significant valvular heart disease. Other Diagnostics PROCEDURE: 1 DAY PHARMACOLOGICAL STRESS TEST Rest and pharmacological stress myocardial perfusion SPECT with gated imaging and ejection fraction RADIOPHARMACEUTICAL: 15.1 mCi Tc-99m tetrafosmin IV at rest and 45.0 mCi Tc-99m tetrafosmin IV at peak effect of pharmacological stress. A [id number]-[id number] was performed. INDICATIONS: 47 year-old male with chest pain. The patient has coronary disease with history of myocardial infarction and 2015 and coronary stenting in March of 2016. TECHNIQUE: Radiopharmaceutical was injected at peak stress test, and also at rest. SPECT images were obtained. SPECT myocardial perfusion images were displayed in short axis, horizontal long axis, and vertical long axis views. Gated images were reviewed using Auto[employer] software. COMPARISON: [facility], [place] CARDIAC STRESS TEST PHARM, 2015, 13:00. CARDIAC STRESS: The patient started on an exercise stress test using standard Richard protocol. The patient exercised for 3 minutes and 8 seconds with functional aerobic impairment (RADHA) 0 percent and reached 58% maximum predicted heart rate. The stress test was switched to Lexiscan infusion. A pharmacologic stress test was performed under the supervision of an attending staff, using an infusion of Lexiscan. Hemodynamic data: There is hypotensive and blunted heart rate response to exercise pharmacologic stress. Symptoms: The patient reported chest pain, 5-6/10 with exercise. Aminophylline: Not needed EKG: No diagnostic changes of ischemia; no ectopy. FINDINGS: Raw data: There is good myocardial uptake of radiotracer. No significant motion artifacts. Left ventricle function: Gated images demonstrate normal left ventricular wall thickening. No segmental wall motion abnormalities. No transient ischemic dilation. Left ventricle resting end diastolic volume is normal. Left ventricle stress ejection fraction is 51%; normal range is above 45%. Myocardial perfusion: There is a tiny, very mild, reversible defect in the mid anterior wall. normal distribution of activity in the right and left ventricular myocardium. Comparison to prior examinations: Compared with the last exam on 10/24/2016, a tiny fixed defect might be present in the same territory. IMPRESSION: 1. Probably abnormal myocardial perfusion scan. Possible tiny, very mild ischemia in the mid anterior wall verus artifact. 2. Normal left ventricular volume and systolic function. 3. The patient experienced chest pain during exercise, 5-6/10 in severity. He failed to reach the target heart rate on Richard protocol. Exercise stress test was switched to Lexiscan infusion. No diagnostic EKG changes for ischemia. PQRS ATTESTATIONS: Measure 322 - Is this imaging test primarily performed on a low-risk surgery patient for preoperative evaluation within 30 days preceding their low-risk non- cardiac surgery? Low-risk surgery is defined as cardiac or myocardial infarction less than 1%, including (but not limited to) endoscopic procedures, superficial procedures, cataract surgery, and excisional breast surgery: Answer : No Measure 323 - Is this imaging test performed primarily for the monitoring of an asymptomatic patient who had percutaneous coronary intervention on the visit date or within 2 years of the visit date? Answer: No Measure 324 - Is this imaging test performed primarily for the initial detection and risk assessment on an asymptomatic, low coronary heart disease patient? Low CHD risk definition = clinicians should consider the maximum number of available patient factors used to estimate risk based on [place] ( ATP III criteria), typically age, gender, diabetes, smoking status, and use of blood pressure medication, and integrate age appropriate estimates for missing elements, such as LDL or standard blood pressure. Answer: No Dictated by: Nicholas Zamora M.D. on 05/14/2017 at 16:32 Approved by: Nicholas Zamora M.D. on 05/14/2017 at 16:46 Brief History As per HPI by admitting physician, "A 46 year old male with history of CAD, type II diabetes mellitus, CHF, stroke, [place], hypertension, frequent ED visits due to angina and multiple cardiac stents presents to the ED via EMS complaining of sudden onset sharp, left-sided chest pain that began 3 hours prior to arrival. According to EMS, the patient was hypotensive en route. The episode of "12/10" chest pain lasted approximately 5 minutes. His symptoms feel similar to his previous episodes of angina. The episode today began while he was sitting in the car and was associated with nausea and lightheadedness. He states that the pain radiates/"pulsates" to his left arm. He reports that his pain is exacerbated by movement and walking. He rates his current pain as an 8/ 10. He took 1 Nitro with little relief. He denies any visual disturbances, SOB, vomiting or one-sided weakness, diarrhea, constipation or abdominal pain. Patient was seen in the ED on 05/10 for identical symptoms and was discharged in good condition with 15 oxycodone and a plan to follow up with his PCP. Last echocardiogram - 12/2016 revealed basal mid inferior and inferoseptal hypokinesis with normal EF. In ER: troponin X 1 -ve, EKG - unchanged " Hospital Course Chest pain, POA, active. - as per patient, crushing radiating to his arm and shoulder. Given the constant nature of the chest pain that refractory to Nitro, it is likely that his chest pain is related to the chronic neck and back pain. - However, patient has significant history of CAD s/p 9 stents and uncontrolled DM, thus at risk for a cardiovascular event. - Echo reveals no significant change compared to previous one. Stress test is equivocal as above. - Trops X 3 negative. D/C heparin drip. - EKG X1 unchanged - Pain is uncontrolled with oral Percocet. Will have morphine prn for pain. - nitroglycerin for angina, however if bp low, will hold - continue home meds - discussed with Dr. Gutierrez, given persistent and nonexersional nature, he did not feel acute ACS or cardiac etiology was cause - Recommending home DC without medication changes. 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 - gabapentin continued - Diabetic/heart healthy diet. - Need to follow up with Endocrinology as outpatient. Reported chronic heart failure; present on admission; stable - Continued home medications: Imdur, Metoprolol, Lisinopril, Furosemide History of DVT; present on admission; stable -Patient reportedly on warfarin in the past. -Bilateral calf pain on exam, which is unclear if chronic. US negative for evidence of acute thrombus. H/o seizures, presume stable. -Patient had seizures as a boy, and intermittently through adulthood with his last seizure 3 months ago; no meds after childhood - on keppra, will continue History of smoking, chronic. - discussed with patient the harms of smoking, and counselled to quit. - Nicotine patch available upon request. BPH, chronic. - Resume home meds. Morbidly obesity, BMI of 40.7, chronic. - Recommend sleep study as outpatient to rule out TAWANNA. Exam Vital Signs (Last) Date Time Temp Pulse Resp B/P Pulse Ox O2 Delivery O2 Flow Rate FiO2 05/15/17 09:34 36.3 83 18 118/65 95 Room Air Test 05/13/17 15:33 05/14/17 18:31 05/14/17 21:40 05/15/17 05:43 Prothrombin Time 9.9sec (8.1-12.5) Prothromb Time International Ratio 0.93ratio Total Bilirubin 0.3mg/dL (0.0-1.2) Aspartate Amino Transf (AST/SGOT) 24U/L (0-50) Alanine Aminotransferase (ALT/SGPT) 16U/L (0-44) Alkaline Phosphatase 126U/L (25-150) Pro-B-Type Natriuretic Peptide 121.6pg/mL (0-121) Total Protein 7.4g/dL (6.4-8.4) Albumin 3.8g/dL (3.4-5.0) Lipase 5U/L (13-60) Activated Partial Thromboplast Time 26.8sec (22.8-33.0) Troponin T 0.010ug/L (0.0-0.011) White Blood Count 7.6th/mm3 (3.8-10.1) Red Blood Count 4.49mil/mm3 (4.40-5.80) Hemoglobin 13.4g/dL (13.8-17.2) Hematocrit 40.5% (41.0-50.0) Mean Corpuscular Volume 90.2fL (81-100) Mean Corpuscular Hemoglobin 29.8pg (27.0-35.0) Mean Corpuscular Hemoglobin Concent 33.1% (32.0-37.0) Red Cell Distribution Width 13.1% (12.3-15.4) Platelet Count 197bil/L (150-400) Neutrophils (%) (Auto) 62.8% (40-74) Lymphocytes (%) (Auto) 24.7% (14-46) Monocytes (%) (Auto) 10.2% (4-12) Eosinophils (%) (Auto) 1.8% (0-5) Basophils (%) (Auto) 0.4% (0-3) Sodium Level 138mEq/L (134-144) Potassium Level 4.7mEq/L (3.5-5.2) Chloride Level 100mEq/L (97-108) Carbon Dioxide Level 24mmol/L (18-29) Blood Urea Nitrogen 11mg/dL (6-24) Creatinine 0.76mg/dL (0.76-1.27) Estimat Glomerular Filtration Rate 116mL/min (>59) Glucose Level 268mg/dL (60-99) Calcium Level 8.7mg/dL (8.5-10.1) Magnesium Level 2.1mg/dL (1.6-2.6) General: Alert, Oriented X3, Cooperative, No Acute Distress Chest & Lungs: Clear to auscultation & percussion Cardiovascular: Regular Rate/Rhythm Extremities: No cyanosis/clubbing/edma bilat Neurological: Grossly Neurologically Intact Discharge Medications Discharge Medications Allopurinol (Allopurinol) 300 Mg Tablet 300 MG PO HS (Reported) Aspirin (Aspirin) 81 Mg Tablet 81 MG PO QAM (Reported) Atorvastatin (Lipitor) 80 Mg Tablet 80 MG PO HS (Reported) Clopidogrel (Clopidogrel) 75 Mg Tablet 75 MG PO QAM (Reported) Doxazosin (Cardura) 4 Mg Tablet 8 MG PO QAM (Reported) Finasteride (Finasteride) 5 Mg Tablet 5 MG PO QAM (Reported) Fluoxetine (Fluoxetine) 40 Mg Capsule 40 MG PO QAM (Reported) Furosemide (Furosemide) 40 Mg Tablet 40 MG PO QAM (Reported) Gabapentin (Gabapentin) 600 Mg Tablet 600 MG PO BID (Reported) Insulin Glargine (Lantus U100 Insulin Vial) 100 Unit/Ml Vial 80 UNIT SUBQ BID ( Reported) Insulin Regular, Human (HUMulin-R U100 Insulin Vial) 100 Unit/1 Ml Vial 40 UNIT SUBQ BIDWM (Reported) BREAKFAST AND DINNER Insulin Regular, Human (HUMulin-R U100 Insulin Vial) 100 Unit/1 Ml Vial 2-20 UNIT SUBQ ACHS (Reported) SLIDING SCALE Isosorbide MN ER (Isosorbide MN ER) 60 Mg Tab.er.24h 60 MG PO QAM (Reported) Lisinopril (Lisinopril) 2.5 Mg Tablet 2.5 MG PO QAM (Reported) Metoprolol Succinate ER (Metoprolol Succinate ER) 25 Mg Tab.er.24h 25 MG PO QAM (Reported) Oxycodone HCl/Acetaminophen (Endocet 10-325 mg Tablet) 1 Each Tablet 2 EACH PO QID (Reported) Pantoprazole DR (Pantoprazole DR) 40 Mg Tablet.dr 40 MG PO QAM (Reported) Potassium Chloride ER (Potassium Chloride ER) 20 Meq Tablet.er 20 MEQ PO QAM ( Reported) TAKE WITH FOOD Tamsulosin ER (Tamsulosin ER) 0.4 Mg Cap.er.24h 0.8 MG PO QAM (Reported) As needed Acetaminophen (Acetaminophen) 500 Mg Tablet 500-1,000 MG PO Q6H PRN PRN For Pain (Reported) Albuterol HFA (Proair HFA) 8.5 Gm Hfa.aer.ad 2 PUFFS INHALATION QID PRN PRN For Shortness of Breath (Reported) Ibuprofen (Ibuprofen) 200 Mg Capsule 800 MG PO DIRECTED PRN PRN For Pain ( Reported) Loperamide (Loperamide) 2 Mg Tablet 2 MG PO Q4H PRN PRN For Diarrhea or Loose Stool (Reported) Nitroglycerin SL (Nitroglycerin SL) 0.4 Mg Tab.subl 0.4 MG SL Q5MIN PRN PRN For Chest Pain (Reported) Followup Plan Disposition: Home Follow-up plan Follow up with primary care physician in 1-2 weeks on discharge. 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 Recommend fu in next month for further evaluation and review of results obtained during this hospitalization. Follow-up Provider: Santiago Funez MD Follow-up with PCP in: 1 week Time spent 40 minutes copies to: Santiago Funez MD Vital Signs Vital Sign - Last Date Time Temp Pulse Resp B/P Pulse Ox O2 Delivery O2 Flow Rate FiO2 05/15/17 09:34 36.3 83 18 118/65 95 Room Air Intake and Output 05/14/17 05/14/17 05/15/17 Cumulative From/Thru 15:00 23:00 07:00 05/13/17 15:32 - 05/15/17 05:36 Intake Total 291 ml 300 ml 744 ml 2635 ml Output Total 1025 ml 1625 ml Balance 291 ml 300 ml -281 ml 1010 ml Intake Oral 300 ml 744 ml 1344 ml IV Total 291 ml 1291 ml Output Urine Total 1025 ml 1625 ml # Voids 3 3 # Bowel Movements 2 2 Lab and Diagnostics Result Diagram: 05/15/17 0543 05/15/17 0543 Shaun Meyer DO May 15, 2017 12:27 Shaun Meyer DO May 15, 2017 12:27
--- NOTE | 2017-05-15 12:30 | PCM.DIMED ---
Discharge Instructions Date of Service May 15, 2017 Dates of Hospitalization May 13, 2017 at 20:08 Discharge Diagnosis Discharge Diagnosis Chest pain, POA, active. 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 History of smoking, chronic. BPH, chronic. Morbidly obesity, BMI of 40.7, chronic. Diet Discharge Diet: No restrictions, Low fat, Low Sodium, Heart Healthy, Diabetic Activity Discharge Activity: No restrictions Call your provider Call your provider for: Shortness of breath, Chest pain Patient Instructions Patient Instructions See below Follow-up plan Follow up with primary care physician in 1-2 weeks on discharge. 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 Recommend fu in next month for further evaluation and review of results obtained during this hospitalization. Follow-up Provider: Santiago Funez MD Follow-up with PCP in: 1 week Shaun Meyer DO May 15, 2017 12:30
== END 2017-05-15 13:21 | disposition home or self-care (01) | DRG 313 ==
LOC: SED 15:11 → EDUNIT# 15:11 → EDBD 15:11 → OBSVTOIN 20:08 → PCC 20:08 → MPC 05-14 19:48
PROVIDERS: ADMIT Internal Medicine; ATTEND Family Medicine
DX: R07.89 Other chest pain (principal); I25.2 Old myocardial infarction; I50.9 Heart failure, unspecified; K31.84 Gastroparesis; E11.40 Type 2 diabetes mellitus with diabetic neuropathy, unspecified; E11.65 Type 2 diabetes mellitus with hyperglycemia; Z68.41 Body mass index [BMI] 40.0-44.9, adult; Z86.73 Personal history of transient ischemic attack (TIA), and cerebral infarction without residual deficits; Z95.5 Presence of coronary angioplasty implant and graft; Z79.82 Long term (current) use of aspirin; Z79.4 Long term (current) use of insulin; Z91.19 Patient's noncompliance with other medical treatment and regimen; Z86.718 Personal history of other venous thrombosis and embolism; F17.210 Nicotine dependence, cigarettes, uncomplicated; Z79.02 Long term (current) use of antithrombotics/antiplatelets; E11.43 Type 2 diabetes mellitus with diabetic autonomic (poly)neuropathy; Z71.6 Tobacco abuse counseling; G40.909 Epilepsy, unspecified, not intractable, without status epilepticus; N40.0 Benign prostatic hyperplasia without lower urinary tract symptoms; E66.01 Morbid (severe) obesity due to excess calories; M54.2 Cervicalgia; M54.9 Dorsalgia, unspecified

== ENCOUNTER 2017-05-16 17:39 | Inpatient (IN) | payer OTHER, MEDICAID ==
[~2017-05-16] VITALS: Ht 172.7 cm; Wt 121.2 kg
[~2017-05-16 17:39] MED LIST changes: -KEN25CR EXT; -KEP500TA PO; -NICO1PAT16 TRANSDERM; -OXYC-466 PO
[2017-05-16 17:40] VITALS: BP 119/72; PULSE 89; RESP 20; O2SAT 97
[2017-05-16 18:58] LABS: BASOPHILS % (AUTO) 0.2 % (0-3); EOSINOPHILS % (AUTO) 0.6 % (0-5); MONOCYTES % (AUTO) 8.8 % (4-12); Mean Corpuscular Hemoglobin 29.6 pg (27.0-35.0); Mean Corpuscular Volume 87.2 fL (81-100); NEUTROPHILS % (AUTO) 65.9 % (40-74); Platelet Count 232 bil/L (150-400)
[2017-05-16 19:24] LABS: TROPONIN T < 0.010 ug/L (0.0-0.011)
[2017-05-16 19:32] LABS: Magnesium 1.9 mg/dL (1.6-2.6)
--- NOTE | 2017-05-16 20:19 | ED.REPORT ---
HPI-General Illness Date of Service May 16, 2017 ED Provider: Zackary Domínguez MD A 46 year old male with history of CAD, type II diabetes mellitus, CHF, stroke, [place], hypertension, frequent ED visits due to angina and multiple cardiac stents presents to the ED via EMS complaining of chest pain that began this afternoon. He reports midsternal, throbbing chest pain that radiates to his left shoulder. He rates the constant pain as an 8/10 and the pain is exacerbated by exertion. Patient took 4 Nitro today which provided relief for a temporary period of time. Associated symptoms include dizziness, nausea and fatigue. Patient was recently admitted to the hospital on 05/13 for unstable angina and was discharged yesterday in good condition on 05/15 after reassuring cardiac work- up. He presents to the ED tonight with identical symptoms. Patient is requesting readmission to the hospital at this time. He denies any fever, chills , SOB, vomiting, abdominal pain, headache, or numbness/tingling. Nursing Notes Stated Complaint: HEART Chief Complaint: Chest Pain Nursing Notes Reviewed: Yes Allergies: Coded Allergies: Honey Bee (Verified Allergy, Severe, anaphylaxis, 05/16/17) Penicillins (Verified Allergy, Severe, SWELLING, HIVES, ITCHING, 05/16/17) TAPE (Verified Allergy, Mild, blisters, 05/16/17) levetiracetam (Verified Allergy, Unknown, 05/17/17) "Sleep all day long" hydromorphone (Verified Adverse Reaction, Intermediate, HALLUCINATIONS, "HIGH", 05/16/17) sumatriptan (Verified Adverse Reaction, Intermediate, CONVULSIONS, SHAKES , 05/16/17) Scheduled Allopurinol (Allopurinol) 300 Mg Tablet 300 MG PO HS Aspirin (Aspirin) 81 Mg Tablet 81 MG PO QAM Atorvastatin (Lipitor) 80 Mg Tablet 80 MG PO HS Clopidogrel (Clopidogrel) 75 Mg Tablet 75 MG PO QAM Doxazosin (Cardura) 4 Mg Tablet 8 MG PO QAM Finasteride (Finasteride) 5 Mg Tablet 5 MG PO QAM Fluoxetine (Fluoxetine) 40 Mg Capsule 40 MG PO QAM Furosemide (Furosemide) 40 Mg Tablet 40 MG PO QAM Gabapentin (Gabapentin) 600 Mg Tablet 600 MG PO BID Insulin Glargine (Lantus U100 Insulin Vial) 100 Unit/Ml Vial 80 UNIT SUBQ BID Insulin Regular, Human (HUMulin-R U100 Insulin Vial) 100 Unit/1 Ml Vial 40 UNIT SUBQ BIDWM BREAKFAST AND DINNER Insulin Regular, Human (HUMulin-R U100 Insulin Vial) 100 Unit/1 Ml Vial 2-20 UNIT SUBQ ACHS SLIDING SCALE Isosorbide MN ER (Isosorbide MN ER) 60 Mg Tab.er.24h 60 MG PO QAM Lisinopril (Lisinopril) 2.5 Mg Tablet 2.5 MG PO QAM Metoprolol Succinate ER (Metoprolol Succinate ER) 25 Mg Tab.er.24h 25 MG PO QAM Oxycodone HCl/Acetaminophen (Endocet 10-325 mg Tablet) 1 Each Tablet 2 EACH PO QID Pantoprazole DR (Pantoprazole DR) 40 Mg Tablet.dr 40 MG PO QAM Potassium Chloride ER (Potassium Chloride ER) 20 Meq Tablet.er 20 MEQ PO QAM TAKE WITH FOOD Tamsulosin ER (Tamsulosin ER) 0.4 Mg Cap.er.24h 0.8 MG PO QAM Scheduled PRN Acetaminophen (Acetaminophen) 500 Mg Tablet 500-1,000 MG PO Q6H PRN PRN For Pain Albuterol HFA (Proair HFA) 8.5 Gm Hfa.aer.ad 2 PUFFS INHALATION QID PRN PRN For Shortness of Breath Ibuprofen (Ibuprofen) 200 Mg Capsule 800 MG PO DIRECTED PRN PRN For Pain Nitroglycerin SL (Nitroglycerin SL) 0.4 Mg Tab.subl 0.4 MG SL Q5MIN PRN PRN For Chest Pain General Time Seen by MD: 20:10 Chief Complaint Chest pain Hx Obtained From: Patient Arrived By: Walk-in Sudden in Onset?: No Onset Occurred: 1 - 4 hours ago Symptom Duration: Since onset Location: : Chest Quality: Painful, Throbbing Radiation: : Arm left Severity: Current: Pain level 8 out of 10 Severity: Maximum: Pain level 8 out of 10 Associated with: Reports: Chest pain Pertinent Negative: Pt denies other symptoms Recent Healthcare: Recent doctor visit, Recent hospitalization Past Medical History Past Medical History Notes: Patient states has had "nine stents" placed at [facility] For CP 08/01/2016, 08/04/16, and 08/26/16 Multiple ED visits for CP, admitted for chest pain 11/21/2016 and 04/20/2017 with hospitalist diagnosis of narcotic seeking behavior Last admit 05/13/17 - Unstable angina Past Medical History CAD - multiple stents, cardiac caths 02/14, 03/12, 04/11, ad 04/17 w/stent placed to proximal LAD overlapping prior stent and "plavix non-responder" Syncope Type two diabetes with neuropathy Chronic back and leg pain Lower extremity DVT "years ago" per patient, details unclear History of migraines BPH Kidney Stones On Warfarin and Plavix HTN Seizure Spinal meningitis [place] 2014 Concern for TIA October 2016, MRI/MRA negative Reports: COPD, Congestive heart failure, Stroke Reports: Heroin use Past Surgical History Shoulder surgery (joint replacement) Left knee surgery Ganglion cyst in right hand Cardiac stents ("x9" - at Prov) Reports: Cholecystectomy Family History Both of the patient's parents are still alive Smoking History Current Every Day Smoker Social History Alcohol Use: Denies alcohol use Drug Use: Denies drug use Other Social History: Good social support, , Local resident 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 Physical Exam Nursing note and vitals reviewed. Constitutional: Well-developed, well-nourished. Not diaphoretic. Head: Normocephalic and atraumatic. Mouth/Throat: Oropharynx is clear and moist. No oropharyngeal exudate. Eyes: EOM are normal. Pupils are equal, round, and reactive to light. Neck: Supple, no tracheal deviation. Cardiovascular: Normal rate, regular rhythm. Equal and intact distal pulses throughout. Pulmonary/Chest: Effort normal and breath sounds normal. No respiratory distress. Abdominal: Soft. No distension. There is no tenderness, rebound, or guarding. Bowel sounds present. Musculoskeletal: Range of motion grossly intact, moving all extremities. No edema or tenderness appreciated. Neurological: AOx3. Grossly nonfocal exam. Strength and sensation intact and equal to bilateral upper and lower extremities. Skin: Warm and dry, no rashes or pallor appreciated. Psychiatric: Appropriate mood and affect. Behavior appears normal. Vital Signs Vital Signs Date Time Temp Pulse Resp B/P Pulse Ox O2 Delivery O2 Flow Rate FiO2 05/17/17 00:25 36.9 82 16 95/45 98 Room Air 05/16/17 23:00 36.6 85 18 118/70 97 Room Air 05/16/17 22:00 36.7 88 20 122/73 97 Room Air 05/16/17 17:40 36.0 89 20 119/72 97 Room Air Interpretation & Diagnostics Chest X-ray No acute EKG Sinus rhythm Labs CBC unremarkable except Hct 40.9 Coag within normal limits CMP Na 130 Cl 9 5 Glucose 438 Troponin negative Stress Test IMPRESSION: 1. Probably abnormal myocardial perfusion scan. Possible tiny, very mild ischemia in the mid anterior wall verus artifact. 2. Normal left ventricular volume and systolic function. 3. The patient experienced chest pain during exercise, 5-6/10 in severity. He failed to reach the target heart rate on Richard protocol. Exercise stress test was switched to Lexiscan infusion. No diagnostic EKG changes for ischemia. PQRS ATTESTATIONS: Measure 322 - Is this imaging test primarily performed on a low-risk surgery patient for preoperative evaluation within 30 days preceding their low-risk non- cardiac surgery? Low-risk surgery is defined as cardiac or myocardial infarction less than 1%, including (but not limited to) endoscopic procedures, superficial procedures, cataract surgery, and excisional breast surgery: Answer : No Measure 323 - Is this imaging test performed primarily for the monitoring of an asymptomatic patient who had percutaneous coronary intervention on the visit date or within 2 years of the visit date? Answer: No Measure 324 - Is this imaging test performed primarily for the initial detection and risk assessment on an asymptomatic, low coronary heart disease patient? Low CHD risk definition = clinicians should consider the maximum number of available patient factors used to estimate risk based on [place] ( ATP III criteria), typically age, gender, diabetes, smoking status, and use of blood pressure medication, and integrate age appropriate estimates for missing elements, such as LDL or standard blood pressure. Answer: No Dictated by: Nicholas Zamora M.D. on 05/14/2017 at 16:32 Lab Results Interpretation Result Diagram: 05/16/17 1845 05/16/17 1845 Test 05/16/17 18:29 05/16/17 18:45 Activated Partial Thromboplast Time 31.7sec (22.8-33.0) White Blood Count 8.7th/mm3 (3.8-10.1) Red Blood Count 4.69mil/mm3 (4.40-5.80) Hemoglobin 13.9g/dL (13.8-17.2) Hematocrit 40.9% (41.0-50.0) Mean Corpuscular Volume 87.2fL (81-100) Mean Corpuscular Hemoglobin 29.6pg (27.0-35.0) Mean Corpuscular Hemoglobin Concent 34.0% (32.0-37.0) Red Cell Distribution Width 12.6% (12.3-15.4) Platelet Count 232bil/L (150-400) Neutrophils (%) (Auto) 65.9% (40-74) Lymphocytes (%) (Auto) 24.3% (14-46) Monocytes (%) (Auto) 8.8% (4-12) Eosinophils (%) (Auto) 0.6% (0-5) Basophils (%) (Auto) 0.2% (0-3) Sodium Level 130mEq/L (134-144) Potassium Level 4.2mEq/L (3.5-5.2) Chloride Level 95mEq/L (97-108) Carbon Dioxide Level 19mmol/L (18-29) Blood Urea Nitrogen 14mg/dL (6-24) Creatinine 0.86mg/dL (0.76-1.27) Estimat Glomerular Filtration Rate 100mL/min (>59) Glucose Level 438mg/dL (60-99) Calcium Level 9.1mg/dL (8.5-10.1) Total Bilirubin 0.5mg/dL (0.0-1.2) Aspartate Amino Transf (AST/SGOT) 14U/L (0-50) Alanine Aminotransferase (ALT/SGPT) 14U/L (0-44) Alkaline Phosphatase 135U/L (25-150) Total Protein 7.8g/dL (6.4-8.4) Albumin 3.6g/dL (3.4-5.0) Hold Pereyra Top Tube Received (Received) ECG Interpretation ECG Interpretation: Sinus rhyhtm No acute ST changes Time: 21:13 Interpreted by: ED physician X-Ray Chest Interpretation Chest Xray Interpretation: IMPRESSION: No acute abnormalities Re-Eval/Medical Decision Med Decision/Clinical Course In summary, 47-year-old male with a PMHx notable for coronary artery disease who presents to the ED for evaluation of exertional chest pain radiating to his left arm since earlier today. Differential includes ACS, PE, PTX, aortic dissection, myocarditis/pericarditis, abdominal etiology such as cholecystitis, MSK pain. Initial troponin negative. EKG demonstrates sinus rhythm with no acute ischemic changes. Lowest risk by [place]. No evidence of pneumothorax on chest x-ray or exam. Pain not described as tearing through to the back, CXR w/ no evidence of widened mediastinum, normal neuro exam, and equal pulses to bilateral upper and lower extremities; aortic dissection seems very unlikely. Neither clinical presentation, exam, or EKG seem c/w pericarditis or myocarditis. No abdominal pain or tenderness. Rest of labs reviewed, glucose of 436, sodium (corrected) 133. CBC, CMP, coags otherwise within normal limits. Given patient's concerning story, concern for unstable angina. IV fluids, nitroglycerin, morphine, and IV heparin drip were initiated, and the patient was admitted for further management and evaluation. Patient agreeable to plan, no further questions. Time of Eval: 22:12 Re-Evaluation/Progress Note: Patient is re-evaluated. Pain has improved. All questions about the treatment plan are addressed and he agrees with plan to admit. Consultation : Referral / Consult Name: Beth Lawson DO Consulted With: Hospitalist Call Returned at: 00:11 Substitute Crossing Guard: Will see patient, Agrees with eval, Agrees with plan, Accepts admit Counseled Regarding: Diagnosis, Lab results, Need for admission Discharge & Departure Primary Impression: Unstable angina Disposition: ADMITTED TO HOSPITAL Discharge Condition All VS Reviewed: Yes Condition: Improved Referrals: Santiago Funez MD (PCP) Crit Care Except Billable Proc Time Spent: 75-104 minutes Services Performed: Patient management by me, Time spent at bedside, Reviewing test results, Reviewing imaging, Discussing patient care, Documentation in record, Time with fam/surrogate Critical Care Notes: Please see MDM. White Attestation Portions of this note were transcribed by Perla Walker. I, Dr. Domínguez personally performed the history, physical exam and medical decision-making; I reviewed and confirmed the accuracy of the information in the transcribed note. Signed by: Cindy Ford, 05/17/1714. copies to: Santiago Funez MD, William B MD May 16, 2017 20:19 PERLA WALKER May 16, 2017 20:55 Reported chronic heart failure; present on admission; stable - Continued home medications: Imdur, Metoprolol, Lisinopril, Furosemide History of DVT; present on admission; stable -Patient reportedly on warfarin in the past. -Bilateral calf pain on exam, which is unclear if chronic. US negative for evidence of acute thrombus. H/o seizures, presume stable. -Patient had seizures as a boy, and intermittently through adulthood with his last seizure 3 months ago; no meds after childhood - on keppra, will continue History of smoking, chronic. - discussed with patient the harms of smoking, and counselled to quit. - Nicotine patch available upon request. BPH, chronic. - Resume home meds. Morbidly obesity, BMI of 40.7, chronic. - Recommend sleep study as outpatient to rule out TAWANNA. Time of Eval: 22:12 Re-Evaluation/Progress Note: Patient is re-evaluated. Pain has improved. All questions about the treatment plan are addressed and he agrees with plan to admit. Consultation : Referral / Consult Name: Beth Lawson DO Consulted With: Hospitalist Call Returned at: 00:11 Substitute Crossing Guard: Will see patient, Agrees with eval, Agrees with plan, Accepts admit Counseled Regarding: Diagnosis, Lab results, Need for admission Discharge & Departure Primary Impression: Unstable angina Disposition: ADMITTED TO HOSPITAL Discharge Condition All VS Reviewed: Yes Condition: Improved Referrals: Santiago Funez MD (PCP) Crit Care Except Billable Proc Time Spent: 75-104 minutes Services Performed: Patient management by me, Time spent at bedside, Reviewing test results, Reviewing imaging, Discussing patient care, Documentation in record, Time with fam/surrogate Scribe Attestation Portions of this note were transcribed by Perla Walker. I, Dr. Domínguez personally performed the history, physical exam and medical decision-making; I reviewed and confirmed the accuracy of the information in the transcribed note. Signed by: Cindy Ford, 05/17/17 0015. copies to: Santiago Funez MD, William B MD May 16, 2017 20:19 PERLA WALKER May 16, 2017 20:55 copies to: Santiago Funez MD, William B MD May 16, 2017 20:19 PERLA WALKER May 16, 2017 20:55
[2017-05-16 22:00] VITALS: BP 122/73; PULSE 88; RESP 20; O2SAT 97
[2017-05-16] MEDS ORDERED: Nitroglycerin 2% 1 Gm Ointment TOPICAL SCH (22:05)
[2017-05-16 23:00] VITALS: BP 118/70; PULSE 85; RESP 18; O2SAT 97
[2017-05-16] MEDS ORDERED: Nitroglycerin 50 mg/250 mL D5W 50,000 MCG in IV Premix 1 EACH IV ONE (23:27)
[2017-05-16] MEDS ORDERED: Heparin 25K Unit/500mL 0.45 NS 25,000 UNIT in IV Premix 1 EACH IV ONE (23:30)
[2017-05-16] MEDS ORDERED: Heparin 5,000 Unit/mL Inj IVPUSH ONE (23:30)
[2017-05-17] VITALS (13 sets, daily range): BP systolic 95–136; BP diastolic 45–72; PULSE 57–82; RESP 12–20; O2SAT 95–98
[2017-05-17] MEDS ORDERED: 0.9% Sodium Chloride 1,000 ML IV SCH (00:38)
[2017-05-17] MEDS ORDERED: Alum-Mag Hydrox-Simeth 30 mL Suspension PO PRN (00:40)
[2017-05-17] MEDS ORDERED: Atropine 1 mg/10 mL (Code) Syringe IVPUSH PRN (00:40)
[2017-05-17] MEDS ORDERED: Senna-Docusate 8.6-50 mg Tablet PO PRN (00:40)
[2017-05-17] MEDS ORDERED: Ondansetron 2 mg/mL 2 mL Inj IVPUSH PRN (00:40)
[2017-05-17] MEDS ORDERED: Polyethylene Glycol (PEG) 17 Gm Powder PO PRN (00:40)
[2017-05-17] MEDS ORDERED: Nitroglycerin 2% 1 Gm Ointment TOPICAL ONE (01:07)
--- NOTE | 2017-05-17 01:20 | NUR ---
Arrived on the floor Pt arrived on the floor with Heparin gtt infusing at 1000units/hr. Awake and oriented. Pt mentioned that he has no pain during transfer since he just had a pain meds. Oriented to room and use of call light.
--- NOTE | 2017-05-17 01:26 | PCM.HPMED ---
Subjective Date of Service May 17, 2017 Primary Provider: Admitting Physician: Beth Lawson DO Primary Care Physician: Santiago Funez MD Attending Physician: Beth Lawson DO Admit Status: From the Emergency Department Chief Complaint: Chest pain shortness of breath and syncope History of Present Illness: 47-year-old male with past medical history remarkable for myocardial infarction and coronary artery disease requiring 9 stents placed within the last year approximately presents with recurrent chest pain, lightheadedness, shortness of breath. The patient states that this is been a recurrent problem for him the last year since his heart attack. The patient states that his chest pain may occur at rest or with exertion, may improve with rest or nitroglycerin or may not improve overall with medications. Today the patient states that his chest pain feels similar to prior episodes described as initially a few twinges of cramping pain followed by a pressure that feels like squeezing around his heart that radiates into his back. The patient took 2 doses of nitroglycerin with improvement in pain however required another 2 doses of nitroglycerin prior to showing up to the ED and several more doses of nitroglycerin since then. The patient states that the pain also improves temporarily with morphine however only shortly for 5-10 minutes. The chest pain always has concomitant flushed facial feeling, nausea, shortness of breath and lightheadedness. The patient states that he will sometimes pass out after having an episode of chest pain, twice passing out today. The patient denies ever losing bowel incontinence after passing out, he states that he has only lost bladder control once which did not occur. The patient states that today he began to feel groggy described as low energy at lunch. The patient was last seen May 13 through May 15 with similar chest pain complaints which included a stress test and echocardiogram both of which failed to reveal a definitive cardiac cause of his chest pain. Review of documentation from that admission appears that cardiology is convinced that this is non cardiac chest pain. However the patient states that he was seen by a donor recruiter who presented the option of having a cardiac catheterization procedure to definitively rule out a stenotic lesion. Records indicate that the patient was to follow-up with donor recruiter Dr. Jackman on May 16 however the patient failed to make that appointment. The patient states that he thought his appointment was with Dr. Kaye. Dr. Jackman saw the patient in January 2017 and discontinued several blood pressure medications believing that the patient had possible polypharmacy complications. The patient states that his blood pressure medications were restarted by his PCP when he began to feel poorly. Review of Systems: A comprehensive review of systems was obtained and all were negative except for what is included in the history of present illness. Allergies Coded Allergies: Honey Bee (Verified Allergy, Severe, anaphylaxis, 05/16/17) Penicillins (Verified Allergy, Severe, SWELLING, HIVES, ITCHING, 05/16/17) TAPE (Verified Allergy, Mild, blisters, 05/16/17) levetiracetam (Verified Allergy, Unknown, 05/17/17) "Sleep all day long" hydromorphone (Verified Adverse Reaction, Intermediate, HALLUCINATIONS, "HIGH", 05/16/17) sumatriptan (Verified Adverse Reaction, Intermediate, CONVULSIONS, SHAKES , 05/16/17) Home Medications Allopurinol 300 MG PO HS Aspirin 81 MG PO QAM Atorvastatin 80 MG PO HS Clopidogrel 75 MG PO QAM Doxazosin 8 MG PO QAM Finasteride 5 MG PO QAM Fluoxetine 40 MG PO QAM Furosemide 40 MG PO QAM Gabapentin 600 MG PO BID Insulin Glargine 80 UNIT SUBQ BID Insulin Regular, Human 40 UNIT SUBQ BIDWM BREAKFAST AND DINNER Insulin Regular, Human 2-20 UNIT SUBQ ACHS SLIDING SCALE Isosorbide MN ER 60 MG PO QAM Lisinopril 2.5 MG PO QAM Metoprolol Succinate ER 25 MG PO QAM Oxycodone HCl/Acetaminophen 2 EACH PO QID Pantoprazole DR 40 MG PO QAM Potassium Chloride ER 20 MEQ PO QAM TAKE WITH FOOD Tamsulosin ER 0.8 MG PO QAM Scheduled PRN Acetaminophen 500-1,000 MG PO Q6H PRN PRN For Pain Albuterol HFA 2 PUFFS INHALATION QID PRN For Shortness of Breath Ibuprofen 800 MG PO DIRECTED PRN For Pain Loperamide 2 MG PO Q4H PRN For Diarrhea or Loose Stool Nitroglycerin SL 0.4 MG SL Q5MIN PRN For Chest Pain PMH CAD - multiple stents, cardiac caths 02/14, 03/12, 04/11, ad 04/17 w/stent placed to proximal LAD overlapping prior stent and "plavix non-responder" Syncope Type two diabetes with neuropathy Chronic back and leg pain Lower extremity DVT "years ago" per patient, details unclear History of migraines BPH Kidney Stones HTN Seizure Spinal meningitis [place] 2014 Concern for TIA October 2016, MRI/MRA negative Stroke 12 years ago reportedly due to small bleed Reports: COPD, Congestive heart failure, Polysubstance use according to EMR was using heroin in 2009 for pain control, then transition methadone Surgical History Left rotator cuff surgery x2 Right knee surgery Left knee surgery Ganglion cyst in right hand Cardiac stents ("x9" - at [facility]) Cholecystectomy Family History Father w/diabetes and [place] at 49- Mother with diabetes and CABG at 59 Grandmother- [place] at 47 Grandfather-CVA Several other family members have diabetes. Social History Hx Alcohol Use: No (on holidays; social occassional) Hx Substance Use: No Hx Tobacco Use: Yes Smoking Status: Current Every Day Smoker Living Arrangement: with Family Exam Vital Signs Vital Sign - Last Date Time Temp Pulse Resp B/P Pulse Ox O2 Delivery O2 Flow Rate FiO2 05/17/17 00:25 36.9 82 16 95/45 98 Room Air Exam General: Morbidly obese middle aged man in no acute distress Eyes: Pupils equal round and reactive to light, extraocular motion intact, anicteric sclera, noninjected conjunctiva HENT: Normocephalic atraumatic, moist mucous membranes without central cyanosis , oropharynx clear without purulent exudate or cobblestoning mucosa Neck: Supple, trachea midline, without thyromegaly or JVD Cardiovascular: Regular rate and regular rhythm, S1-S2 present, no S3-S4, without murmurs rubs or gallops noted Lungs: Clear to auscultation bilaterally without wheezing rales or rhonchi Abdomen: Soft, nontender, nondistended, tympanic to percussion, normal active bowel sounds, without organomegaly Extremities: No cyanosis clubbing or edema noted, pulses intact bilaterally at dorsalis pedis and radial : No Whitney catheter in place Skin: Warm and dry Neuro: Nonfocal neurologic exam Psych: Normal mood and affect Lab and Diagnostics Result Diagram: 05/16/[id number] Cardiac Echo Impressions Echocardiogram Report from 05/14/2017 Interpretation Summary The ejection fraction is estimated to be 55-60%. There are no obvious focal wall motion abnormalities noted but poor endocardial definition reduces the sensitivity for the detection of such. Previously noted inferior WMA is not well visualized on this suboptimal exam. There is no significant valvular heart disease. Electronically signed by: Jose Whitney on Reading Physician:05/14/2017 11:19 AM Additional Diagnostics: PROCEDURE: 1 DAY PHARMACOLOGICAL STRESS TEST FINDINGS: Raw data: There is good myocardial uptake of radiotracer. No significant motion artifacts. Left ventricle function: Gated images demonstrate normal left ventricular wall thickening. No segmental wall motion abnormalities. No transient ischemic dilation. Left ventricle resting end diastolic volume is normal. Left ventricle stress ejection fraction is 51%; normal range is above 45%. Myocardial perfusion: There is a tiny, very mild, reversible defect in the mid anterior wall. normal distribution of activity in the right and left ventricular myocardium. Comparison to prior examinations: Compared with the last exam on 10/24/2016, a tiny fixed defect might be present in the same territory. IMPRESSION: 1. Probably abnormal myocardial perfusion scan. Possible tiny, very mild ischemia in the mid anterior wall verus artifact. 2. Normal left ventricular volume and systolic function. 3. The patient experienced chest pain during exercise, 5-6/10 in severity. He failed to reach the target heart rate on Richard protocol. Exercise stress test was switched to Lexiscan infusion. No diagnostic EKG changes for ischemia. Approved by: Nicholas Zamora M.D. on 05/14/2017 at 16:46 Assessment & Plan 47-year-old male with past medical history remarkable for myocardial infarction and coronary artery disease requiring 9 stents placed within the last year approximately presents with recurrent chest pain, lightheadedness, shortness of breath. # Acute on chronic chest pain with history of coronary artery disease - Described as pressure squeezing around his heart radiating into his back with concomitant symptoms include facial flushing with lightheadedness, shortness of breath, nausea - The patient states that this chest pain can occur at rest or with exertion and can improve with rest or nitroglycerin or not be relieved at all - Patient has risk factors for coronary artery disease however has had extensive workup recently for possible coronary artery disease including several cardiac catheterizations, 9 PCI, echo performed on May 14 and exercise converted to Lexiscan stress test - Prior hospitalization with similar symptoms of chest pain records indicate that cardiology was considering this chest pain likely noncardiac in nature however recent stress test showed a very small area of possible ischemia related changes and patient states that he was given the option to have a cardiac catheterization performed however no documentation of this exists - Patient received several doses of sublingual nitroglycerin with mild improvement in pain as well as morphine IV with only temporary relief - Heparin drip started in the emergency department this will be continued until determined the patient was not given a recent option for diagnostic cardiac catheterization - Patient was given option of attempting a nitroglycerin drip however patient is aware of the side effect of headache and determined that he would rather have his regular home dosing of oxycodone with morphine IV available for breakthrough - Trend troponins 3 initial two are negative - CK and CK-MB 3 initial negative - Continue home medications for angina including isosorbide mononitrate and sublingual nitroglycerin - Pain is uncontrolled with oral Percocet. Will have morphine prn for pain. - Patient education to follow-up with cardiology as an outpatient, patient had an appointment scheduled with Dr. Jackman for May 16 however failed to show up to that appointment and was unaware that it was with Dr. Jackman. He believed he was to be meeting Dr. Kaye. - Continue home medications for coronary artery disease including Aspirin 81 MG , Atorvastatin 80 MG, Clopidogrel 75 MG # Chronic type II diabetes with peripheral neuropathy and gastroparesis - Glucose elevated at admission , Hgba1c 10.3 at admission in March - patient takes Lantus 80 mg BID as per records this will be continued - Regular insulin 40 twice daily with breakfast and dinner - Insulin correction dose (high) - gabapentin continue - Diabetic/heart healthy diet. - Need to follow up with Endocrinology as outpatient. # Chronic polypharmacy - Records indicate that Dr. Jackman was concerned with possible polypharmacy side effects at admission in January and discontinued several blood pressure medications which were restarted by the PCP for unknown reasons - The patient takes several blood pressure medications in the morning and complains of chronic fatigue - Patient education to separate blood pressure medications into morning and nighttime dosing # chronic diastolic heart failure - Continue home medications: Imdur, Metoprolol, Lisinopril, Furosemide # Chronic Tobacco dependency disorder - discussed with patient the harms of smoking, and counselled to quit. - Nicotine patch available upon request. # Chronic benign prostatic hypertrophy - Resume home meds including tamsulosin doxazosin and finasteride # Chronic Morbidly obesity, BMI of 40.7 - in room states the patient does snore regularly - Recommend sleep study as outpatient to rule out TAWANNA given chronic daytime fatigue # Chronic*esophageal reflux disease - Continue home pantoprazole # Chronic pain - Continue home oxycodone DVT prophylaxis: Heparin drip The patient is admitted to inpatient status with expected length of stay greater than 2 midnights given presenting symptoms, likely diagnosis, possible complications, and required treatments. VTE Prophylaxis Indicated: Meets Criteria for Anticoag Therapy VTE Prophylaxis: Other (heparin drip) Resuscitation Status: CPR: Attempt Resuscitation Attending Statement The patient was seen and examined together with house staff on 05/17/2017 and I agree with the history, exam and plan as outlined in the note above. Abdifatah Vivas DO May 17, 2017 01:26 Beth Lawson DO May 17, 2017 06:41
[2017-05-17 02:13] LABS: Creatine Kinase 48 U/L (21-232); Magnesium 1.9 mg/dL (1.6-2.6)
[2017-05-17] MEDS ORDERED: oxyCODONE-Acetamin 10-325 mg Tablet PO PRN (02:25)
[2017-05-17] MEDS: Insulin Human REGular 300 Unit/3 mL Inj SUBQ SCH ×6 (03:11→20:45)
[2017-05-17] MEDS: Insulin GLARgine 100 Unit/mL Syringe SUBQ SCH ×3 (03:12→20:45)
[2017-05-17] MEDS: oxyCODONE-Acetamin 10-325 mg Tablet PO PRN ×3 (03:26→16:55)
[2017-05-17] MEDS ORDERED: Heparin 25K Unit/500mL 0.45 NS 25,000 UNIT in IV Premix 1 EACH IV SCH (03:40)
--- NOTE | 2017-05-17 03:55 | NUR ---
ADMISSION Pt oriented to room and use of call light. He complains of chest pain up to 8/10 at this time. He refused of Nitro gtt due because " I don't want to get anymore headache". Md at bedside aware. Medication reconciliation update per pt's recall/interview.
--- NOTE | 2017-05-17 06:19 | NUR ---
Chest pain Pt reports that his pain is "getting better" but not as much better when they gave him Morphine in Ed. Pt mentioned that he has gotten Morphine 4 mg several times in the ED last night. Pt also was given his home dose of Oxycodone with Morphine IV prn for c/o chest discomfort. He reports that it helped a little bit. Telemetry SR/SB in 60s to 50s. Ambulate in room and without any c/o dizziness. Addendum: 05/17/17 at 0628 by LINK TOLENTINO RN Pt noted to be sleeping after dose of pain meds given.
[2017-05-17] MEDS ORDERED: Albuterol 2.5 mg/3 mL Inhalation Solution NEB PRN (07:00)
[2017-05-17 08:20] LABS: Creatine Kinase 51 U/L (21-232)
[2017-05-17] MEDS: Isosorbide Mononitrate 60 mg ER24 Tablet PO SCH (08:24)
[2017-05-17] MEDS: Pantoprazole 40 mg ER24 Tablet PO SCH (08:24)
[2017-05-17] MEDS: MeTOProlol XL 25 mg ER24 Tablet PO SCH (08:24)
[2017-05-17] MEDS: Heparin 5,000 Unit/mL Inj IVPUSH PRN ×2 (08:38→20:48)
[2017-05-17] MEDS: Sodium Chloride LOK Flush 10 mL Syringe IVFLUSH SCH ×3 (08:42→22:41)
--- NOTE | 2017-05-17 11:11 | DRSVH ---
PROCEDURE: X-RAY CHEST ONE VIEW, PORTABLE ([id number]) INDICATIONS: CHEST PAIN TECHNIQUE: One view of the chest was acquired. COMPARISON: [facility], CR, XR CHEST 1VW (PORTABLE), 05/13/2017, 15:36. FINDINGS: Surgical changes and devices: None. Lungs and pleura: No pleural effusions or pneumothorax. Lungs are clear. Mediastinum: Mediastinal contours appear normal. Heart size is normal. Bones and chest wall: No suspicious bony lesions. Overlying soft tissues appear unremarkable. IMPRESSION: No acute cardiopulmonary disease. Dictated by: Nicholas Zamora M.D. on 05/17/2017 at 11:09 Approved by: Nicholas Zamora M.D. on 05/17/2017 at 11:09
--- NOTE | 2017-05-17 12:12 | PCM.CHPCAR ---
Consult Subjective Date of service May 17, 2017 Date of admit May 17, 2017 at 00:46 Provider Requesting Consult Primary Care Physician Primary Care Physician: Santiago Funez MD Chief Complaint Chest pain History of Present Illness This is a 47-year-old male with a past medical history remarkable for myocardial infarction and coronary artery disease requiring multiple stents over the past 6-12 months. All of his stents were apparently placed at [facility]. Apparently had multiple admissions for recurrent episodes of chest discomfort which required repeated PCI. He did not have any of this information at this time. Patient has been seen at our hospital over the past 2 months because of repeated chest discomfort. 2 out of these 3 admissions have been completed with a Lexiscan sestamibi. His last Lexiscan sestamibi show minimal ischemia in the mid anterior wall versus artifact. Patient is obese which makes it quite difficult to interpret the images. His left ventricle systolic function is normal. The patient actually attempted to perform a treadmill study during the second stress test. He developed significant chest discomfort which was rather classic for angina. The treadmill was stopped because after 3 minutes and 8 seconds the blood pressure dropped. His also had multiple echocardiograms at our institution with his last echocardiogram on 01/19/17. His ejection fraction was 60-65% with basal inferior, mid inferior, and basal inferoseptal hypokinesis. There is stage I diastolic dysfunction. There is no evidence of significant valvular abnormalities. On each visit to the emergency room or admission his troponins have been negative. His EKGs have been unremarkable. For this reason he has not seen a master black belt in [facility]. Is scheduled to see Dr. Jackman yesterday but the patient was sent to the ER because of his chest discomfort. The patient describes his chest pain is mostly exertional. He describes it as chest tightness or pressure in the middle of his chest with radiation to his back and to his left axillary. It does limit him from walking long distances. His mother and his who are at copying him today do state that his color changes from normal to purple or pallor. He becomes diaphoretic during these episodes. He has had supposedly syncopal episodes as well. The patient would normally rest and after a few minutes his chest discomfort will improve. Patient normally takes nitroglycerin tablets which do alleviate his chest discomfort. Review of Systems Review of Systems CONSTITUTIONAL: Negative for fever, weight loss or weight gain. HEENT: Eyes: Negative for glaucoma or cataracts. Ears: Negative pain or loss of hearing. Nose: Negative for nasal congestion. Negative for rhinorrhea or postnasal drip. Mouth: Negative for false teeth. Throat: Negative for masses or hoarseness. Positive for snoring. CARDIOVASCULAR: Also to 4 chest pain but negative for palpitations, positive for near syncope, syncope, negative for PND, or orthopnea. RESPIRATORY: Positive for shortness of breath on exertion, hemoptysis, COPD, cough. GASTROINTESTINAL: Negative for nausea, vomiting, diarrhea or heartburn. GENITOURINARY: Negative for dysuria. MUSCULOSKELETAL: Negative for osteoarthritis. SKIN: Negative for rashes. NEUROLOGIC: Negative for headaches, blurry vision, CVA, mental status changes. PSYCHIATRIC: Negative for depression. Negative for daytime sleepiness or insomnia. ENDOCRINE: Ulcerative for diabetes negative for thyroid abnormalities. HEMATOLOGIC: Negative for anemia or blood dyscrasias. PMH Past Medical History CAD - multiple stents, cardiac caths 02/14, 03/12, 04/11, ad 04/17 w/stent placed to proximal LAD overlapping prior stent and "plavix non-responder" Syncope Type two diabetes with neuropathy Chronic back and leg pain Lower extremity DVT "years ago" per patient, details unclear History of migraines BPH Kidney Stones HTN Seizure Spinal meningitis [facility] 2014 Concern for TIA October 2016, MRI/MRA negative Stroke 12 years ago reportedly due to small bleed Reports: COPD, Congestive heart failure, Polysubstance use according to EMR was using heroin in 2009 for pain control, then transition methadone Bedside Blood Glucose: 288 Scheduled Allopurinol (Allopurinol) 300 Mg Tablet 300 MG PO HS (Reported) Aspirin (Aspirin) 81 Mg Tablet 81 MG PO QAM (Reported) Atorvastatin (Lipitor) 80 Mg Tablet 80 MG PO HS (Reported) Clopidogrel (Clopidogrel) 75 Mg Tablet 75 MG PO QAM (Reported) Doxazosin (Cardura) 4 Mg Tablet 8 MG PO QAM (Reported) Finasteride (Finasteride) 5 Mg Tablet 5 MG PO QAM (Reported) Fluoxetine (Fluoxetine) 40 Mg Capsule 40 MG PO QAM (Reported) Furosemide (Furosemide) 40 Mg Tablet 40 MG PO QAM (Reported) Gabapentin (Gabapentin) 600 Mg Tablet 600 MG PO BID (Reported) Insulin Glargine (Lantus U100 Insulin Vial) 100 Unit/Ml Vial 80 UNIT SUBQ BID ( Reported) Insulin Regular, Human (HUMulin-R U100 Insulin Vial) 100 Unit/1 Ml Vial 40 UNIT SUBQ BIDWM (Reported) BREAKFAST AND DINNER Insulin Regular, Human (HUMulin-R U100 Insulin Vial) 100 Unit/1 Ml Vial 2-20 UNIT SUBQ ACHS (Reported) SLIDING SCALE Isosorbide MN ER (Isosorbide MN ER) 60 Mg Tab.er.24h 60 MG PO QAM (Reported) Lisinopril (Lisinopril) 2.5 Mg Tablet 2.5 MG PO QAM (Reported) Metoprolol Succinate ER (Metoprolol Succinate ER) 25 Mg Tab.er.24h 25 MG PO QAM (Reported) Oxycodone HCl/Acetaminophen (Endocet 10-325 mg Tablet) 1 Each Tablet 2 EACH PO QID (Reported) Pantoprazole DR (Pantoprazole DR) 40 Mg Tablet.dr 40 MG PO QAM (Reported) Potassium Chloride ER (Potassium Chloride ER) 20 Meq Tablet.er 20 MEQ PO QAM ( Reported) TAKE WITH FOOD Tamsulosin ER (Tamsulosin ER) 0.4 Mg Cap.er.24h 0.8 MG PO QAM (Reported) Scheduled PRN Acetaminophen (Acetaminophen) 500 Mg Tablet 500-1,000 MG PO Q6H PRN PRN For Pain (Reported) Albuterol HFA (Proair HFA) 8.5 Gm Hfa.aer.ad 2 PUFFS INHALATION QID PRN PRN For Shortness of Breath (Reported) Ibuprofen (Ibuprofen) 200 Mg Capsule 800 MG PO DIRECTED PRN PRN For Pain ( Reported) Nitroglycerin SL (Nitroglycerin SL) 0.4 Mg Tab.subl 0.4 MG SL Q5MIN PRN PRN For Chest Pain (Reported) Discontinued Medications Levetiracetam (Keppra) 500 Mg Tablet 500 MG PO BID Loperamide (Loperamide) 2 Mg Tablet 2 MG PO Q4H PRN PRN For Diarrhea or Loose Stool (Reported) Nicotine 21 mg/24 hr Patch (Nicotine 21 mg/24 hr Patch) 1 Each Patch.dysq 1 PATCH TRANSDERM QAM (Reported) Triamcinolone Acet (Triamcinolone Acetonide Cream) 1 Applic/0.25 Gm Cr 1 APPLIC EXT DAILY PRN PRN DRY PATCHES (Reported) TO FEET AFTER SHOWER oxyCODONE-Acetaminophen 10-325 mg (oxyCODONE-Acetaminophen 10-325 mg) 1 Each Tablet 1-3 TABLET PO Q6H PRN PRN For Pain Current Inpatient Medications Current Medications Nitroglycerin 1 inch NOW TOPICAL Last administered on 05/16/17 22:14; Admin Dose 1 INCH; Start 05/16/17 at 22:05; Stop 05/17/17 at 01:08; Status DC Sodium Chloride 10 ml 10 ml ERYN IVFLUSH Last administered on 05/17/17 08:42; Admin Dose 10 ML; Start 05/17/17 at 08:30 Sodium Chloride 1,000 ml @ 80 mls/hr [id number] IV; Start 05/17/17 at 00:38; Stop 05/17/17 at 04:31; Status DC Al Hydrox/Mg Hydrox/Simethicone 30 ml Q6 PRN PO; Start 05/17/17 at 00:40 Ondansetron HCl 4-8 mg prn nausea Q4 PRN IVPUSH; Start 05/17/17 at 00:40 Senna 1 tablet BID PRN PO; Start 05/17/17 at 00:40 Polyethylene Glycol 17 gm DAILY PRN PO; Start 05/17/17 at 00:40 Acetaminophen 325 mg Q6 PRN PO; Start 05/17/17 at 00:40 Nitroglycerin 0.4 mg Q5MIN PRN SL; Start 05/17/17 at 00:40 Morphine Sulfate 1-5 mg prn pain not relie... Q5M PRN IVPUSH Last administered on 05/17/17 10:07; Admin Dose 4 MG; Start 05/17/17 at 00:40 Atropine Sulfate please call MD prior to administration Q5MIN PRN IVPUSH; Start 05/17/17 at 00:40 Albuterol 2.5 mg Q6H PRN NEB; Start 05/17/17 at 07:00 Allopurinol 300 mg HS PO; Start 05/17/17 at 21:00 Aspirin 81 mg DAILY PO Last administered on 05/17/17 08:24; Admin Dose 81 MG; Start 05/17/17 at 08:30 Clopidogrel Bisulfate 75 mg DAILY PO Last administered on 05/17/17 08:24; Admin Dose 75 MG; Start 05/17/17 at 08:30 Finasteride 5 mg DAILY PO Last administered on 05/17/17 08:25; Admin Dose 5 MG ; Start 05/17/17 at 08:30 Isosorbide Mononitrate 60 mg DAILY PO Last administered on 05/17/17 08:24; Admin Dose 60 MG; Start 05/17/17 at 08:30 Metoprolol Succinate 25 mg DAILY PO Last administered on 05/17/17 08:24; Admin Dose 25 MG; Start 05/17/17 at 08:30 Pantoprazole 40 mg DAILYAC PO Last administered on 05/17/17 08:24; Admin Dose 40 MG; Start 05/17/17 at 07:30 Tamsulosin HCl 0.8 mg DAILY PO Last administered on 05/17/17 08:24; Admin Dose 0.8 MG; Start 05/17/17 at 08:30 Atorvastatin Calcium 80 mg HS PO; Start 05/17/17 at 21:00 Doxazosin Mesylate 8 mg MORNING PO Last administered on 05/17/17 08:25; Admin Dose 8 MG; Start 05/17/17 at 08:30 Fluoxetine HCl 40 mg DAILY PO Last administered on 05/17/17 08:24; Admin Dose 40 MG; Start 05/17/17 at 08:30 Gabapentin 600 mg BID PO Last administered on 05/17/17 08:24; Admin Dose 600 MG ; Start 05/17/17 at 02:05 Lisinopril 2.5 mg DAILY PO; Start 05/17/17 at 08:30 Insulin Glargine 80 unit BID SUBQ Last administered on 05/17/17 03:12; Admin Dose 80 UNIT; Start 05/17/17 at 02:15 Insulin Human Regular 40 unit BIDWM SUBQ Last administered on 05/17/17 08:40; Admin Dose 40 UNIT; Start 05/17/17 at 08:00 Insulin Human Regular * High Dose Insu... Q6 SUBQ Last administered on 08:41; Admin Dose 7 UNIT; Start 05/17/17 at 02:30 Oxycodone/ Acetaminophen Maximum Acetaminophen dose in... Q6H PRN PO; Start at 02:25; Stop 05/17/17 at 02:31; Status DC Oxycodone/ Acetaminophen 1 tab Q6H PRN PO Last administered on 05/17/17 10:01 ; Admin Dose 1 TAB; Start 05/17/17 at 03:08 Nicotine 1 patch Q24H TOPICAL Last administered on 05/17/17 03:12; Admin Dose 1 PATCH; Start 05/17/17 at 02:35 Heparin Sodium (Porcine) Per Protocol for a... PRN PRN IVPUSH Last administered on 05/17/17 08:38; Admin Dose 5,000 UNIT; Start 05/17/17 at 03:40 Allergies: Coded Allergies: Honey Bee (Verified Allergy, Severe, anaphylaxis, 05/16/17) Penicillins (Verified Allergy, Severe, SWELLING, HIVES, ITCHING, 05/16/17) TAPE (Verified Allergy, Mild, blisters, 05/16/17) levetiracetam (Verified Allergy, Unknown, 05/17/17) "Sleep all day long" hydromorphone (Verified Adverse Reaction, Intermediate, HALLUCINATIONS, "HIGH", 05/16/17) sumatriptan (Verified Adverse Reaction, Intermediate, CONVULSIONS, SHAKES , 05/16/17) Family History Family History Father w/diabetes and [facility] at 49- Mother with diabetes and CABG at 59 Grandmother- [facility] at 47 Grandfather-CVA Several other family members have diabetes. Social History Hx Alcohol Use: No (on holidays; social occassional)Hx Substance Use: NoHx Tobacco Use: Yes Smoking Status: Current Every Day Smoker Living Arrangement: with Family Exam Vital Signs Vital Sign - Last Date Time Temp Pulse Resp B/P Pulse Ox O2 Delivery O2 Flow Rate FiO2 05/17/17 08:58 58 05/17/17 08:33 16 125/63 05/17/17 08:02 37.0 95 Room Air Intake and Output 05/16/17 05/16/17 05/17/17 Cumulative From/Thru 15:00 23:00 07:00 05/16/17 17:40 - 05/17/17 06:14 Intake Total 534 ml 534 ml Output Total 480 ml 480 ml Balance 54 ml 54 ml Intake Oral 426 ml 426 ml IV Total 108 ml 108 ml Output Urine Total 480 ml 480 ml # Bowel Movements 0 0 Objective GENERAL: Well-appearing, well-nourished and in no acute distress. Obese. HEAD: Atraumatic, normocephalic. EYES: Pupils equal round and reactive to light, extraocular movements intact, sclera anicteric, conjunctiva are normal. ENT: oropharynx clear without exudates. Moist mucous membranes. NECK: Normal range of motion, supple without lymphadenopathy or JVD. LUNGS: Breath sounds clear to auscultation bilaterally and equal. No wheezes rales or rhonchi. HEART: Regular rate and rhythm without murmurs, rubs or gallops. ABDOMEN: Soft, nontender, normoactive bowel sounds. No guarding, no rebound. No masses appreciated. EXTREMITIES: Normal range of motion, no pitting or edema. No clubbing or cyanosis. NEUROLOGICAL: Cranial nerves II through XII grossly intact. Normal speech, normal gait. PSYCH: Normal mood, normal affect. SKIN: Warm, Dry, normal turgor, no rashes or lesions noted. Multiple tattoos. Lab and Diagnostics Labs CBC Test 05/16/17 18:45 White Blood Count 8.7th/mm3 (3.8-10.1) Red Blood Count 4.69mil/mm3 (4.40-5.80) Hemoglobin 13.9g/dL (13.8-17.2) Hematocrit 40.9% (41.0-50.0) Mean Corpuscular Volume 87.2fL (81-100) Mean Corpuscular Hemoglobin 29.6pg (27.0-35.0) Mean Corpuscular Hemoglobin Concent 34.0% (32.0-37.0) Red Cell Distribution Width 12.6% (12.3-15.4) Platelet Count 232bil/L (150-400) Neutrophils (%) (Auto) 65.9% (40-74) Lymphocytes (%) (Auto) 24.3% (14-46) Monocytes (%) (Auto) 8.8% (4-12) Eosinophils (%) (Auto) 0.6% (0-5) Basophils (%) (Auto) 0.2% (0-3) CMP Test 05/16/17 18:45 05/17/17 01:04 05/17/17 07:33 Sodium Level 130mEq/L Potassium Level 4.2mEq/L Chloride Level 95mEq/L Carbon Dioxide Level 19mmol/L Blood Urea Nitrogen 14mg/dL Creatinine 0.86mg/dL Estimat Glomerular Filtration Rate 100mL/min Glucose Level 438mg/dL Calcium Level 9.1mg/dL Total Bilirubin 0.5mg/dL Aspartate Amino Transf (AST/SGOT) 14U/L Alanine Aminotransferase (ALT/SGPT) 14U/L Alkaline Phosphatase 135U/L Total Protein 7.8g/dL Albumin 3.6g/dL Hold Pereyra Top Tube Received Magnesium Level 1.9mg/dL Thyroid Stimulating Hormone (TSH) 0.909uIU/mL Total Creatine Kinase 51U/L Creatine Kinase MB 1.0ng/mL Creatine Kinase MB % % Troponin T 0.010ug/L Result Diagram: 05/16/17184405/16/171844 X-Rays, CTs and MRIs No evidence of acute cardiopulmonary process. 12-lead ECG Normal sinus rhythm without any acute ST-T changes. Assessment & Plan Problems: (1) Progressive angina Plan: Patient symptoms are rather classic for angina. He is having chest pain on minimal exertion. Normally I would recommend to go ahead and proceed with cardiac catheterization but because of his history of numerous stents, I think it would be prudent to obtain more information about his prior heart catheterizations at [facility]. Meanwhile I will like to go ahead and add Ranexa 500 mg twice a day and see this makes any difference in regards with his chest pain. Tomorrow morning I asked the patient to start ambulating after he has received 2 doses of Ranexa. If he makes a remarkable improvement with his medication that we may consider follow-up as an outpatient and continue with aggressive medical therapy. If he still having exertional chest discomfort then recommend cardiac catheterization on Friday, but this also depends on his coronary anatomy and location of stents. Hopefully we will know more about this by tomorrow morning. Patient is on pretty good medical therapy as is. If indeed he has worsening coronary artery disease then the patient should switch from atorvastatin to Crestor 40 mg po qhs for more aggressive antilipid therapy. Otherwise I do not think this patient is having acute coronary syndrome but certainly sounds like he has had accelerated angina over the past few months. Status: Acute ICD Code: I20.0 (2) CAD (coronary artery disease) Qualifiers: Coronary Disease-Associated Artery/Lesion type: [place]ajo artery [place] vs. transplanted heart: navajo heart Associated angina: with unstable angina Qualified Code: I25.110 - Atherosclerotic heart disease of navajo coronary artery with unstable angina pectoris Status: Chronic ICD Code: I25.10 (3) S/P coronary artery stent placement Status: Chronic ICD Code: Z95.5 (4) Type II diabetes mellitus Comment: better controlled Last Edited By: Marianna Alexandre MD on Sep 14, 2015 13:03 Status: Chronic ICD Code: E11.9 VTE Prophylaxis Indicated: Meets Criteria for Anticoag Therapy VTE Prophylaxis: Other Resuscitation Status: CPR: Attempt Resuscitation Time spent 80 minutes Jonathan Goodman MD May 17, 2017 12:12
[2017-05-17] MEDS: Ranolazine ER 500 mg ER12 Tablet PO SCH ×2 (13:16→20:43)
--- NOTE | 2017-05-17 13:32 | PCM.PNMED ---
Subjective Date of Service May 17, 2017 Subjective Patient does have an low level chest pain. He describes a 6 month history of progressive exertional pain with associated nausea and vomiting diaphoresis. One episode of syncope. He relates recommendations by his every cotton factor for possible bypass grafting if he has worsening symptoms. Exam Vital Signs Vital Sign - Last Date Time Temp Pulse Resp B/P Pulse Ox O2 Delivery O2 Flow Rate FiO2 05/17/17 12:05 37.3 65 16 106/59 96 Room Air Intake and Output 05/16/17 05/16/17 05/17/17 Cumulative From/Thru 15:00 23:00 07:00 05/16/17 17:40 - 05/17/17 06:14 Intake Total 534 ml 534 ml Output Total 480 ml 480 ml Balance 54 ml 54 ml Intake Oral 426 ml 426 ml IV Total 108 ml 108 ml Output Urine Total 480 ml 480 ml # Bowel Movements 0 0 Exam Alert and oriented -3, no distress. Fluent speech Anicteric sclera. Lungs are clear with normal rate and effort Heart is regular without murmur gallop or rub Abdomen soft nontender, flat Extremities are free of edema. Skin is free of rash or lesions. Multiple tattoos IVs and Medications Medications Reviewed: Medications were reviewed in detail Lab and Diagnostics Result Diagram: 05/16/17 18405/16/17 184 Cardiac Echo Impressions Echocardiogram Report from 05/14/2017 Interpretation Summary The ejection fraction is estimated to be 55-60%. There are no obvious focal wall motion abnormalities noted but poor endocardial definition reduces the sensitivity for the detection of such. Previously noted inferior WMA is not well visualized on this suboptimal exam. There is no significant valvular heart disease. Electronically signed by: Jose Whitney on Reading Physician:05/14/2017 11:19 AM Additional Diagnostics PROCEDURE: 1 DAY PHARMACOLOGICAL STRESS TEST FINDINGS: Raw data: There is good myocardial uptake of radiotracer. No significant motion artifacts. Left ventricle function: Gated images demonstrate normal left ventricular wall thickening. No segmental wall motion abnormalities. No transient ischemic dilation. Left ventricle resting end diastolic volume is normal. Left ventricle stress ejection fraction is 51%; normal range is above 45%. Myocardial perfusion: There is a tiny, very mild, reversible defect in the mid anterior wall. normal distribution of activity in the right and left ventricular myocardium. Comparison to prior examinations: Compared with the last exam on 10/24/2016, a tiny fixed defect might be present in the same territory. IMPRESSION: 1. Probably abnormal myocardial perfusion scan. Possible tiny, very mild ischemia in the mid anterior wall verus artifact. 2. Normal left ventricular volume and systolic function. 3. The patient experienced chest pain during exercise, 5-6/10 in severity. He failed to reach the target heart rate on Richard protocol. Exercise stress test was switched to Lexiscan infusion. No diagnostic EKG changes for ischemia. Approved by: Nicholas Zamora M.D. on 05/14/2017 at 16:46 Assessment & Plan 47-year-old male with past medical history remarkable for myocardial infarction and coronary artery disease requiring 9 stents placed within the last year approximately presents with recurrent chest pain, lightheadedness, shortness of breath. #Unstable angina, POA. Stable. - Described as pressure squeezing around his heart radiating into his back with concomitant symptoms include facial flushing with lightheadedness, shortness of breath, nausea - The patient states that this chest pain can occur at rest or with exertion and can improve with rest or nitroglycerin or not be relieved at all - Patient has risk factors for coronary artery disease however has had extensive workup recently for possible coronary artery disease including several cardiac catheterizations, 9 PCI, echo performed on May 14 and exercise converted to Lexiscan stress test - Prior hospitalization with similar symptoms of chest pain records indicate that cardiology was considering this chest pain likely noncardiac in nature however recent stress test showed a very small area of possible ischemia related changes and patient states that he was given the option to have a cardiac catheterization performed however no documentation of this exists - Patient received several doses of sublingual nitroglycerin with mild improvement in pain as well as morphine IV with only temporary relief - Heparin drip started in the emergency department this will be continued until determined the patient was not given a recent option for diagnostic cardiac catheterization - Patient was given option of attempting a nitroglycerin drip however patient is aware of the side effect of headache and determined that he would rather have his regular home dosing of oxycodone with morphine IV available for breakthrough - Trend troponins 3 initial two are negative - CK and CK-MB 3 initial negative - Continue home medications for angina including isosorbide mononitrate and sublingual nitroglycerin - Pain is uncontrolled with oral Percocet. Will have morphine prn for pain. - Patient education to follow-up with cardiology as an outpatient, patient had an appointment scheduled with Dr. Jackman for May 16 however failed to show up to that appointment and was unaware that it was with Dr. Jackman. He believed he was to be meeting Dr. Kaye. - Continue home medications for coronary artery disease including Aspirin 81 MG , Atorvastatin 80 MG, Clopidogrel 75 MG Reviewed case with cardiology who will review medical records from [facility] and step up medical therapy. 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 - Need to follow up with Endocrinology as outpatient. # chronic diastolic heart failure, POA and stable - Continue home medications: Imdur, Metoprolol, Lisinopril, Furosemide # Chronic Tobacco dependency disorder, POA and stable - discussed with patient the harms of smoking, and counselled to quit. - Nicotine patch available upon request. # Chronic benign prostatic hypertrophy, POA and stable - Resume home meds including tamsulosin doxazosin and finasteride # Chronic Morbidly obesity, BMI of 40.7, POA and stable - in room states the patient does snore regularly - Recommend sleep study as outpatient to rule out TAWANNA given chronic daytime fatigue # Chronic*esophageal reflux disease, POA and stable - Continue home pantoprazole # Chronic pain, POA and stable - Continue home oxycodone DVT prophylaxis: Heparin drip The patient be changed to observation anticipating a one night length of stay VTE Prophylaxis: Other Resuscitation Status: CPR: Attempt Resuscitation Anuj Abraham MD May 17, 2017 13:32
--- NOTE | 2017-05-17 19:31 | NUR ---
Chest pain/Glucose/Heparin Patient a/o x 4, c/o left side chest pain that radiates to the back behind shoulder blade 7-8/10 which decreases to 4/10 after Morphine given. VSS, tele SB-SR 50-60's. Heparin gtt at 1225 unit/hr, next PTT at 1800, noc Rn aware. No S/S of bleeding noted. Patient taking diet well and Lantus 80 units given at 1300 per MD orders. Glucose 171 prior to lunch and 96 pre dinner. Regular insulin held per patient request and noc RN will re eval Lantus dose for noc shift.
[2017-05-18] VITALS (7 sets, daily range): BP systolic 101–117; BP diastolic 59–74; PULSE 58–71; RESP 16; O2SAT 94–97
[2017-05-18] MEDS: oxyCODONE-Acetamin 10-325 mg Tablet PO PRN ×2 (02:17→09:17)
[2017-05-18] MEDS: Insulin Human REGular 300 Unit/3 mL Inj SUBQ SCH ×3 (02:30→08:30)
[2017-05-18] MEDS ORDERED: Dextrose 5% 500 ML IV SCH (02:46)
[2017-05-18] MEDS ORDERED: Morphine PCA 1 mg/mL 30 mL Inj IV PRN (02:50)
--- NOTE | 2017-05-18 07:21 | NUR ---
Pain Pt C/O continues chest pain 7-08/05 while he is smiling and telling jokes with his family. VSS. Pt made threats to leave AMA to smoke and due to pain meds are not schedule routinely. PRN Meds explained to pt. MD notified. Received order to start STOVE CARRIAGE OPERATOR Morphine. Use of STOVE CARRIAGE OPERATOR explained to pt . He verbalizes understanding. Pt verbalizes stratification with STOVE CARRIAGE OPERATOR. No overt complications noted.
[2017-05-18 08:05] LABS: Magnesium 1.9 mg/dL (1.6-2.6)
[2017-05-18] MEDS: Sodium Chloride LOK Flush 10 mL Syringe IVFLUSH SCH (08:30)
[2017-05-18] MEDS: Pantoprazole 40 mg ER24 Tablet PO SCH (09:17)
[2017-05-18] MEDS: MeTOProlol XL 25 mg ER24 Tablet PO SCH (09:17)
[2017-05-18] MEDS: Ranolazine ER 500 mg ER12 Tablet PO SCH (09:19)
[2017-05-18] MEDS: Insulin GLARgine 100 Unit/mL Syringe SUBQ SCH (09:19)
[2017-05-18] MEDS: Isosorbide Mononitrate 60 mg ER24 Tablet PO SCH (09:23)
--- NOTE | 2017-05-18 11:50 | PCM.DC.MED ---
Discharge Summary Date of Service May 18, 2017 Dates of Hospitalization Date of Hospital Admission May 17, 2017 at 00:46 Date of Discharge: May 18, 2017 Providers: Admitting Physician: Beth Lawson DO Primary Care Physician: Santiago Funez MD Attending Physician: Anuj Abraham MD Diagnosis at Time of Discharge Diagnosis at Time of Discharge #Unstable angina, POA, active. 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 Jonathan Goodman) Procedures XRay, CTs & MRIs PROCEDURE: X-RAY CHEST ONE VIEW, PORTABLE IMPRESSION: No acute cardiopulmonary disease. Dictated by: Nicholas Zamora M.D. on 05/17/2017 at 11:09 ECG 12 Lead Sinus rhythm and rate 88 Cardiac Echo Impression Echocardiogram Report from 05/14/2017 Interpretation Summary The ejection fraction is estimated to be 55-60%. There are no obvious focal wall motion abnormalities noted but poor endocardial definition reduces the sensitivity for the detection of such. Previously noted inferior WMA is not well visualized on this suboptimal exam. There is no significant valvular heart disease. Electronically signed by: Jose Whitney on Reading Physician:05/14/2017 11:19 AM Other Diagnostics PROCEDURE: 1 DAY PHARMACOLOGICAL STRESS TEST FINDINGS: Raw data: There is good myocardial uptake of radiotracer. No significant motion artifacts. Left ventricle function: Gated images demonstrate normal left ventricular wall thickening. No segmental wall motion abnormalities. No transient ischemic dilation. Left ventricle resting end diastolic volume is normal. Left ventricle stress ejection fraction is 51%; normal range is above 45%. Myocardial perfusion: There is a tiny, very mild, reversible defect in the mid anterior wall. normal distribution of activity in the right and left ventricular myocardium. Comparison to prior examinations: Compared with the last exam on 10/24/2016, a tiny fixed defect might be present in the same territory. IMPRESSION: 1. Probably abnormal myocardial perfusion scan. Possible tiny, very mild ischemia in the mid anterior wall verus artifact. 2. Normal left ventricular volume and systolic function. 3. The patient experienced chest pain during exercise, 5-6/10 in severity. He failed to reach the target heart rate on Richard protocol. Exercise stress test was switched to Lexiscan infusion. No diagnostic EKG changes for ischemia. Approved by: Nicholas Zamora M.D. on 05/14/2017 at 16:46 Brief History This is a 47-year-old male with a past medical history remarkable for myocardial infarction and coronary artery disease requiring multiple stents over the past 6-12 months. All of his stents were apparently placed at [facility]. Apparently had multiple admissions for recurrent episodes of chest discomfort which required repeated PCI. He did not have any of this information at this time. Patient has been seen at our hospital over the past 2 months because of repeated chest discomfort. 2 out of these 3 admissions have been completed with a Lexiscan sestamibi. His last Lexiscan sestamibi show minimal ischemia in the mid anterior wall versus artifact. Patient is obese which makes it quite difficult to interpret the images. His left ventricle systolic function is normal. The patient actually attempted to perform a treadmill study during the second stress test. He developed significant chest discomfort which was rather classic for angina. The treadmill was stopped because after 3 minutes and 8 seconds the blood pressure dropped. His also had multiple echocardiograms at our institution with his last echocardiogram on 01/19/17. His ejection fraction was 60-65% with basal inferior, mid inferior, and basal inferoseptal hypokinesis. There is stage I diastolic dysfunction. There is no evidence of significant valvular abnormalities. On each visit to the emergency room or admission his troponins have been negative. His EKGs have been unremarkable. For this reason he has not seen a land manager in [facility]. Is scheduled to see Dr. Jackman yesterday but the patient was sent to the ER because of his chest discomfort. The patient describes his chest pain is mostly exertional. He describes it as chest tightness or pressure in the middle of his chest with radiation to his back and to his left axillary. It does limit him from walking long distances. His mother and his who are at copying him today do state that his color changes from normal to purple or pallor. He becomes diaphoretic during these episodes. He has had supposedly syncopal episodes as well. The patient would normally rest and after a few minutes his chest discomfort will improve. Patient normally takes nitroglycerin tablets which do alleviate his chest discomfort. Hospital Course 47-year-old male with past medical history remarkable for myocardial infarction and coronary artery disease requiring 9 stents placed within the last year approximately presents with recurrent chest pain, lightheadedness, shortness of breath. #Unstable angina, POA. Stable. - Classic symptoms for angina. Described as pressure squeezing around his heart radiating into his back with concomitant symptoms include facial flushing with lightheadedness, shortness of breath, nausea. Chest pain at rest and worse with minimal exertion. - The patient states that this chest pain can occur at rest or with exertion and can improve with rest or nitroglycerin or not be relieved at all - Patient has risk factors for coronary artery disease however has had extensive workup recently for possible coronary artery disease including several cardiac catheterizations, 9 PCI, echo performed on May 14 and exercise converted to Lexiscan stress test - Prior hospitalization with similar symptoms of chest pain records indicate that cardiology was considering this chest pain likely noncardiac in nature however recent stress test showed a very small area of possible ischemia related changes and patient states that he was given the option to have a cardiac catheterization performed however no documentation of this exists - Patient received several doses of sublingual nitroglycerin with mild improvement in pain as well as morphine IV with only temporary relief. 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 - Heparin drip started in the emergency department this will be continued until determined the patient was not given a recent option for diagnostic cardiac catheterization - Patient was given option of attempting a nitroglycerin drip however patient is aware of the side effect of headache and determined that he would rather have his regular home dosing of oxycodone with morphine IV available for breakthrough - Troponins 3 negative - CK and CK-MB 3 negative - Continue home medications for angina including isosorbide mononitrate and sublingual nitroglycerin - Continue home medications for coronary artery disease including Aspirin 81 MG , Atorvastatin 80 MG, Clopidogrel 75 MG. - Cardiology started Ranexa 500mg BID yesterday with no significant relief. Therefore will D/C Ranexa. - Cardiology has been trying to obtain previous record from [place] with no success. In addition to his numerous stents, patient has had accelerated angina over the past few months. He states that his land manager, Dr. Quintero, suggested the possibility of CABG in the past if his symptoms persist. Reviewed case with cardiology who agreed with transferring to [facility] for evaluation of possible CABG. - Dr. Jose Hogue (cardiology) at [facility] kindly accepted the transfer request and would like have the patient transfer as soon as possible. 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 - Need to follow up with Endocrinology as outpatient. # chronic diastolic heart failure, POA and stable - Continue home medications: Imdur, Metoprolol, Lisinopril, Furosemide # Chronic Tobacco dependency disorder, POA and stable - discussed with patient the harms of smoking, and counselled to quit. - Nicotine patch available upon request. # Chronic benign prostatic hypertrophy, POA and stable - Resume home meds including tamsulosin doxazosin and finasteride # Chronic Morbidly obesity, BMI of 40.7, POA and stable - in room states the patient does snore regularly - Recommend sleep study as outpatient to rule out TAWANNA given chronic daytime fatigue # Chronic esophageal reflux disease, POA and stable - Continue home pantoprazole # Chronic pain, POA and stable - Continue home oxycodone DVT prophylaxis: Heparin drip The patient be changed to observation anticipating a one night length of stay Exam Vital Signs (Last) Date Time Temp Pulse Resp B/P Pulse Ox O2 Delivery O2 Flow Rate FiO2 05/18/17 10:42 71 05/18/17 08:58 16 97 05/18/17 08:58 36.5 101/59 Room Air Exam General: Morbidly obese middle aged man in no moderate pain Eyes: Pupils equal round and reactive to light, extraocular motion intact, anicteric sclera, noninjected conjunctiva HENT: Normocephalic atraumatic, moist mucous membranes without central cyanosis , oropharynx clear without purulent exudate or cobblestoning mucosa Neck: Supple, trachea midline, without thyromegaly or JVD Cardiovascular: Regular rate and regular rhythm, S1-S2 present, no S3-S4, without murmurs rubs or gallops noted Lungs: Clear to auscultation bilaterally without wheezing rales or rhonchi Abdomen: Soft, nontender, nondistended, tympanic to percussion, normal active bowel sounds, without organomegaly Extremities: No cyanosis clubbing or edema noted, pulses intact bilaterally at dorsalis pedis and radial Skin: Warm and dry Neuro: Nonfocal neurologic exam Psych: Normal mood and affect Test 05/16/17 18:45 05/17/17 01:04 05/17/17 07:33 05/18/17 03:10 White Blood Count 8.7th/mm3 (3.8-10.1) Red Blood Count 4.69mil/mm3 (4.40-5.80) Mean Corpuscular Volume 87.2fL (81-100) Mean Corpuscular Hemoglobin 29.6pg (27.0-35.0) Mean Corpuscular Hemoglobin Concent 34.0% (32.0-37.0) Red Cell Distribution Width 12.6% (12.3-15.4) Platelet Count 232bil/L (150-400) Neutrophils (%) (Auto) 65.9% (40-74) Lymphocytes (%) (Auto) 24.3% (14-46) Monocytes (%) (Auto) 8.8% (4-12) Eosinophils (%) (Auto) 0.6% (0-5) Basophils (%) (Auto) 0.2% (0-3) Total Bilirubin 0.5mg/dL (0.0-1.2) Aspartate Amino Transf (AST/SGOT) 14U/L (0-50) Alanine Aminotransferase (ALT/SGPT) 14U/L (0-44) Alkaline Phosphatase 135U/L (25-150) Total Protein 7.8g/dL (6.4-8.4) Albumin 3.6g/dL (3.4-5.0) Hold Pereyra Top Tube Received (Received) Thyroid Stimulating Hormone (TSH) 0.909uIU/mL (0.450-4.500) Total Creatine Kinase 51U/L (21-232) Creatine Kinase MB 1.0ng/mL (0.0-10.4) Creatine Kinase MB % % (0.0-5.0) Troponin T 0.010ug/L (0.0-0.011) Hemoglobin 13.7g/dL (13.8-17.2) Hematocrit 40.2% (41.0-50.0) Test 05/18/17 07:05 05/18/17 09:58 Sodium Level 138mEq/L (134-144) Potassium Level 3.9mEq/L (3.5-5.2) Chloride Level 101mEq/L (97-108) Carbon Dioxide Level 22mmol/L (18-29) Blood Urea Nitrogen 14mg/dL (6-24) Creatinine 0.73mg/dL (0.76-1.27) Estimat Glomerular Filtration Rate 121mL/min (>59) Glucose Level 145mg/dL (60-99) Calcium Level 8.4mg/dL (8.5-10.1) Magnesium Level 1.9mg/dL (1.6-2.6) Activated Partial Thromboplast Time 52.9sec (22.8-33.0) Discharge Medications Discharge Medications Allopurinol (Allopurinol) 300 Mg Tablet 300 MG PO HS (Reported) Aspirin (Aspirin) 81 Mg Tablet 81 MG PO QAM (Reported) Atorvastatin (Lipitor) 80 Mg Tablet 80 MG PO HS (Reported) Clopidogrel (Clopidogrel) 75 Mg Tablet 75 MG PO QAM (Reported) Doxazosin (Cardura) 4 Mg Tablet 8 MG PO QAM (Reported) Finasteride (Finasteride) 5 Mg Tablet 5 MG PO QAM (Reported) Fluoxetine (Fluoxetine) 40 Mg Capsule 40 MG PO QAM (Reported) Furosemide (Furosemide) 40 Mg Tablet 40 MG PO QAM (Reported) Gabapentin (Gabapentin) 600 Mg Tablet 600 MG PO BID (Reported) Insulin Glargine (Lantus U100 Insulin Vial) 100 Unit/Ml Vial 80 UNIT SUBQ BID ( Reported) Insulin Regular, Human (HUMulin-R U100 Insulin Vial) 100 Unit/1 Ml Vial 40 UNIT SUBQ BIDWM (Reported) BREAKFAST AND DINNER Insulin Regular, Human (HUMulin-R U100 Insulin Vial) 100 Unit/1 Ml Vial 2-20 UNIT SUBQ ACHS (Reported) SLIDING SCALE Isosorbide MN ER (Isosorbide MN ER) 60 Mg Tab.er.24h 60 MG PO QAM (Reported) Lisinopril (Lisinopril) 2.5 Mg Tablet 2.5 MG PO QAM (Reported) Metoprolol Succinate ER (Metoprolol Succinate ER) 25 Mg Tab.er.24h 25 MG PO QAM (Reported) Oxycodone HCl/Acetaminophen (Endocet 10-325 mg Tablet) 1 Each Tablet 2 EACH PO QID (Reported) Pantoprazole DR (Pantoprazole DR) 40 Mg Tablet.dr 40 MG PO QAM (Reported) Potassium Chloride ER (Potassium Chloride ER) 20 Meq Tablet.er 20 MEQ PO QAM ( Reported) TAKE WITH FOOD Tamsulosin ER (Tamsulosin ER) 0.4 Mg Cap.er.24h 0.8 MG PO QAM (Reported) As needed Acetaminophen (Acetaminophen) 500 Mg Tablet 500-1,000 MG PO Q6H PRN PRN For Pain (Reported) Albuterol HFA (Proair HFA) 8.5 Gm Hfa.aer.ad 2 PUFFS INHALATION QID PRN PRN For Shortness of Breath (Reported) Ibuprofen (Ibuprofen) 200 Mg Capsule 800 MG PO DIRECTED PRN PRN For Pain ( Reported) Nitroglycerin SL (Nitroglycerin SL) 0.4 Mg Tab.subl 0.4 MG SL Q5MIN PRN PRN For Chest Pain (Reported) Followup Plan Disposition: Transfer to [facility] Discharge Diet: Heart Healthy, Diabetic Discharge Activity: Limited until seen by PCP Patient Instructions Follow-up and discharge plan per [place] Time spent 60 minutes Attending Statement Mr. Koenig was seen and examined with Dr. Garcia on May 18. I participated in all aspects of this service. I agree with her assessment and plan and documentation. copies to: Santiago Funez MD, Ngochanh H DO May 18, 2017 11:50 Anuj Abraham MD May 18, 2017 15:42
--- NOTE | 2017-05-18 11:56 | PCM.DIMED ---
Donna Garcia DO 05/18/17 1156: Discharge Instructions Date of Service May 18, 2017 Dates of Hospitalization May 17, 2017 at 00:46 Discharge Diagnosis Discharge Diagnosis #Unstable angina, POA, active. 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 Follow-up and discharge plan per [place]. No change to current medications. Anuj Abraham MD 05/18/17 1543: Discharge Instructions Attending's Statement Mr. Koenig was seen and examined with Dr. Garcia on May 18. I participated in all aspects of this service. I agree with her assessment and plan and documentation. Donna Garcia DO May 18, 2017 11:56 Anuj Abraham MD May 18, 2017 15:43
--- NOTE | 2017-05-18 12:11 | NUR ---
Social Work- Multidisciplinary Rounds/Discharge to Acute Care Facility Pt discussed in rounds. Pt will be transferred to [facility]. Discharge orders are active. [facility] will not see pt due to transfer and high census. ANTHONY Leroy
--- NOTE | 2017-05-18 13:00 | NUR ---
Transfer [facility] Patient a/o x 4, up indep in room, steady gait. Patient cont to have 6-8/10 left-mid epigastric pain radiating to back and shoulder blade, using moderate amounts of still pump operator MS for pain control. Lungs clear bilat. VSS, tele SB-SR 50-60's. Glucose 145 per lab this a.m. Lantus 80 units given and Regular insulin 40 units held per patient request. Heparing gtt @ 1425 unit/hr next PTT at 1700 today. Report called to Ellen MCARTHUR at [facility] and patient transferred via ALS at 1240 with all belongings.
== END 2017-05-18 12:40 | disposition short-term general hospital (02) | DRG 303 ==
LOC: SED 17:39 → CCU 05-17 00:46 → OBSVTOIN 05-17 00:46 → PCC 05-17 03:00
PROVIDERS: ADMIT Internal Medicine; ATTEND Hospitalist
DX: I25.110 Atherosclerotic heart disease of native coronary artery with unstable angina pectoris (principal); I50.32 Chronic diastolic (congestive) heart failure; K31.84 Gastroparesis; Z68.41 Body mass index [BMI] 40.0-44.9, adult; E11.40 Type 2 diabetes mellitus with diabetic neuropathy, unspecified; E66.01 Morbid (severe) obesity due to excess calories; Z86.73 Personal history of transient ischemic attack (TIA), and cerebral infarction without residual deficits; I25.2 Old myocardial infarction; Z95.5 Presence of coronary angioplasty implant and graft; Z79.82 Long term (current) use of aspirin; Z79.4 Long term (current) use of insulin; F17.210 Nicotine dependence, cigarettes, uncomplicated; Z86.718 Personal history of other venous thrombosis and embolism; E11.43 Type 2 diabetes mellitus with diabetic autonomic (poly)neuropathy; N40.0 Benign prostatic hyperplasia without lower urinary tract symptoms; K21.9 Gastro-esophageal reflux disease without esophagitis; G89.29 Other chronic pain

== ENCOUNTER 2017-05-26 16:15 | Emergency (ER) | payer MEDICAID, OTHER ==
[~2017-05-26] VITALS: Ht 172.7 cm; Wt 118.2 kg
[~2017-05-26 16:15] MED LIST changes: -LOPE2TAB32 PO
[2017-05-26 16:18] VITALS: BP 146/70; PULSE 72; RESP 20; O2SAT 99
--- NOTE | 2017-05-26 17:32 | DRSVH ---
PROCEDURE: X-RAY RIGHT SHOULDER, MINIMUM TWO VIEWS ([id number]) INDICATIONS: fall, elbow pain TECHNIQUE: 3 views of the shoulder were acquired. COMPARISON: [facility], CR, XR SHOULDER MIN 2VW RT, 01/18/2017, 22:04. FINDINGS: Bones: No fractures or dislocations. There is moderate to severe degeneration of the acromioclavicu lar joint. No suspicious bony lesions. Visualized ribs appear intact. Soft tissues: There is a small calcification along the rotator cuff consistent with calcific tendinit is. IMPRESSION: 1. 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 2. No fracture or subluxation. 3. Calcific tendinitis of the rotator cuff. Dictated by: Maikol Jacinto M.D. on 05/26/2017 at 17:29 Approved by: Maikol Jacinto M.D. on 05/26/2017 at 17:30
--- NOTE | 2017-05-26 17:33 | DRSVH ---
PROCEDURE: X-RAY RIGHT WRIST COMPLETE, MINIMUM THREE VIEWS ([id number]) INDICATIONS: fall, elbow pain TECHNIQUE: 4 views of the wrist were acquired. COMPARISON: None. FINDINGS: Bones: No definite acute fractures or dislocations. There is bony irregularity along the radial asp ect of the trapezium suggesting sequela of prior trauma. No suspicious bony lesions. Scaphoid view: The scaphoid appears intact. Soft tissues: No suspicious soft tissue calcifications. IMPRESSION: 1. No definite acute fracture or subluxation. 2. Irregularity of the trapezium suggesting sequela of prior trauma. Dictated by: Maikol Jacinto M.D. on 05/26/2017 at 17:30 Approved by: Maikol Jacinto M.D. on 05/26/2017 at 17:31
--- NOTE | 2017-05-26 17:38 | DRSVH ---
PROCEDURE: X-RAY RIGHT ELBOW COMPLETE, MINIMUM THREE VIEWS ([id number]) INDICATIONS: fall, elbow pain TECHNIQUE: 3 views of the elbow were acquired. COMPARISON: None. FINDINGS: Bones: No displaced fractures or dislocations. No suspicious bony lesions. Soft tissues: No elbow joint effusion. No suspicious soft tissue calcifications. IMPRESSION: 1. No displaced fracture or dislocation. If clinical concern persists, recommend a repeat study in 7-10 days. Dictated by: Maikol Jacinto M.D. on 05/26/2017 at 17:31 Approved by: Maikol Jacinto M.D. on 05/26/2017 at 17:36
--- NOTE | 2017-05-26 18:48 | ED.REPORT ---
HPI-General Illness Date of Service May 26, 2017 ED Provider: Zackary Domínguez MD Pt is a 47 year old male with a hx of DM II, COPD, and 9 cardiac stents presenting to the ED complaining of right arm pain that started just prior to arrival when he tripped and fell on gravel. He put his arm out to catch himself and denies any lightheadedness, dizziness, or head injury. Pain is 7/10, sharp, constant, worse w/ movement, and located "all up the arm" from his forearm up towards his shoulder. Didn't hit his head or sustain a LOC. No other complaints. No chest pain. His Tetanus is up to date. Nursing Notes Stated Complaint: POSSIBLE BROKEN ARM Chief Complaint: Extremity Trauma Nursing Notes Reviewed: Yes Allergies: Coded Allergies: Honey Bee (Verified Allergy, Severe, anaphylaxis, 05/16/17) Penicillins (Verified Allergy, Severe, SWELLING, HIVES, ITCHING, 05/16/17) TAPE (Verified Allergy, Mild, blisters, 05/16/17) levetiracetam (Verified Allergy, Unknown, 05/17/17) "Sleep all day long" hydromorphone (Verified Adverse Reaction, Intermediate, HALLUCINATIONS, "HIGH", 05/16/17) sumatriptan (Verified Adverse Reaction, Intermediate, CONVULSIONS, SHAKES , 05/16/17) Scheduled Allopurinol (Allopurinol) 300 Mg Tablet 300 MG PO HS Aspirin (Aspirin) 81 Mg Tablet 81 MG PO QAM Atorvastatin (Lipitor) 80 Mg Tablet 80 MG PO HS Clopidogrel (Clopidogrel) 75 Mg Tablet 75 MG PO QAM Doxazosin (Cardura) 4 Mg Tablet 8 MG PO QAM Finasteride (Finasteride) 5 Mg Tablet 5 MG PO QAM Fluoxetine (Fluoxetine) 40 Mg Capsule 40 MG PO QAM Furosemide (Furosemide) 40 Mg Tablet 40 MG PO QAM Gabapentin (Gabapentin) 600 Mg Tablet 600 MG PO BID Insulin Glargine (Lantus U100 Insulin Vial) 100 Unit/Ml Vial 80 UNIT SUBQ BID Insulin Regular, Human (HUMulin-R U100 Insulin Vial) 100 Unit/1 Ml Vial 40 UNIT SUBQ BIDWM BREAKFAST AND DINNER Insulin Regular, Human (HUMulin-R U100 Insulin Vial) 100 Unit/1 Ml Vial 2-20 UNIT SUBQ ACHS SLIDING SCALE Isosorbide MN ER (Isosorbide MN ER) 60 Mg Tab.er.24h 60 MG PO QAM Lisinopril (Lisinopril) 2.5 Mg Tablet 2.5 MG PO QAM Metoprolol Succinate ER (Metoprolol Succinate ER) 25 Mg Tab.er.24h 25 MG PO QAM Oxycodone HCl/Acetaminophen (Endocet 10-325 mg Tablet) 1 Each Tablet 2 EACH PO QID Pantoprazole DR (Pantoprazole DR) 40 Mg Tablet.dr 40 MG PO QAM Potassium Chloride ER (Potassium Chloride ER) 20 Meq Tablet.er 20 MEQ PO QAM TAKE WITH FOOD Tamsulosin ER (Tamsulosin ER) 0.4 Mg Cap.er.24h 0.8 MG PO QAM Scheduled PRN Acetaminophen (Acetaminophen) 500 Mg Tablet 500-1,000 MG PO Q6H PRN PRN For Pain Albuterol HFA (Proair HFA) 8.5 Gm Hfa.aer.ad 2 PUFFS INHALATION QID PRN PRN For Shortness of Breath Ibuprofen (Ibuprofen) 200 Mg Capsule 800 MG PO DIRECTED PRN PRN For Pain Nitroglycerin SL (Nitroglycerin SL) 0.4 Mg Tab.subl 0.4 MG SL Q5MIN PRN PRN For Chest Pain General Time Seen by MD: 16:43 Chief Complaint Other (Right elbow pain) Hx Obtained From: Patient Arrived By: Walk-in Sudden in Onset?: Yes Onset Occurred: Just prior to arrival Symptom Duration: Since onset Caused by: Fall on ground Location: : Elbow right Quality: Painful, Sharp Severity: Current: Severe Severity: Maximum: Severe Recent Healthcare: No recent hospitalization, Recent doctor visit Similar Sx Previous: No Past Medical History Past Medical History Notes: Patient states has had "nine stents" placed at [facility] 08/01/2016, 08/04/16, and 08/26/16 Multiple ED visits for CP, admitted for chest pain 11/21/2016 and 04/20/2017 with hospitalist diagnosis of narcotic seeking behavior Last admit 05/13/17 - Unstable angina Past Medical History CAD - multiple stents, cardiac caths 02/14, 03/12, 04/11, ad 04/17 w/stent placed to proximal LAD overlapping prior stent and "plavix non-responder" Syncope Type two diabetes with neuropathy Chronic back and leg pain Lower extremity DVT "years ago" per patient, details unclear History of migraines BPH Kidney Stones On Warfarin and Plavix HTN Seizure Spinal meningitis [place] 2014 Concern for TIA October 2016, MRI/MRA negative Reports: COPD, Congestive heart failure, Stroke Reports: Heroin use Past Surgical History Shoulder surgery (joint replacement) Left knee surgery Ganglion cyst in right hand Cardiac stents ("x9" - at [facility]) Reports: Cholecystectomy Family History Both of the patient's parents are still alive Smoking History Current Every Day Smoker Social History Alcohol Use: Denies alcohol use Drug Use: Denies drug use Other Social History: Good social support, , Local resident 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 Physical Exam Nursing note and vitals reviewed. Constitutional: Well-developed, well-nourished. Not diaphoretic. Head: Normocephalic and atraumatic. Mouth/Throat: Oropharynx is clear and moist. No oropharyngeal exudate. Eyes: EOM are normal. Pupils are equal, round, and reactive to light. Neck: Supple, no tracheal deviation. Cardiovascular: Normal rate, regular rhythm. Equal and intact distal pulses throughout. Pulmonary/Chest: Effort normal and breath sounds normal. No respiratory distress. Abdominal: Soft. No distension. There is no tenderness, rebound, or guarding. Bowel sounds present. Musculoskeletal: Range of motion grossly intact, moving all extremities. Right Arm: No snuffbox tenderness. Sensation intact to light touch throughout all dermatomes of the arm. Good cap refill. Small hematoma to lateral aspect of right elbow without bony tenderness. Full range of motion. Neurological: AOx3. Grossly nonfocal exam. Strength and sensation intact and equal to bilateral upper and lower extremities. Skin: Warm and dry, no rashes or pallor appreciated. Psychiatric: Appropriate mood and affect. Behavior appears normal. Vital Signs Vital Signs Date Time Temp Pulse Resp B/P Pulse Ox O2 Delivery O2 Flow Rate FiO2 05/26/17 19:21 36.4 66 103/70 96 Room Air 05/26/17 16:18 36.6 72 20 146/70 99 Room Air Initial VS: Reviewed Interpretation & Diagnostics X-Ray Interpretation Xray Interpretation: RIGHT WRIST: IMPRESSION: 1. No definite acute fracture or subluxation. 2. Irregularity of the trapezium suggesting sequela of prior trauma. Dictated by: Maikol Jacinto M.D. on 05/26/2017 at 17:30 RIGHT SHOULDER: IMPRESSION: 1. 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 2. No fracture or subluxation. 3. Calcific tendinitis of the rotator cuff. Dictated by: Maikol Jacinto M.D. on 05/26/2017 at 17:29 RIGHT ELBOW: IMPRESSION: 1. No displaced fracture or dislocation. If clinical concern persists, recommend a repeat study in 7-10 days. Dictated by: Maikol Jacinto M.D. on 05/26/2017 at 17:31 Re-Eval/Medical Decision Med Decision/Clinical Course In summary, 47-year-old male with a complex past medical history including coronary disease presenting to the ED after a clear mechanical fall shortly prior to arrival, now with diffuse right arm pain. He is not feeling lightheaded or having any chest pain prior to the fall; states that he clearly slipped and fell onto the arm. No snuffbox tenderness to suggest occult scaphoid injury. Full range of motion of the arm, neurovascularly intact throughout, including around the shoulder, elbow, hand, and wrist. Hand exam normal. Compartments soft. X-rays of the patient's forearm, elbow, and shoulder negative for acute injury. Given this, reasonable to discharge home with careful return precautions, PCP follow-up tomorrow, which he already has scheduled. A sling was provided for comfort only and encouraged early range of motion. Patient agreeable to the plan as stated, no further questions. Time of Eval: 18:30 Patient Status: Condition improved Re-Evaluation/Progress Note: Discussed plan for discharge. Pt understands and agrees with plan. Counseled Regarding: Diagnosis, Lab results, Need for follow-up, When/why to return to ED Discharge & Departure Primary Impression: Fall Encounter type: initial encounter Qualified Code: W19.XXXA - Unspecified fall, initial encounter Additional Impression: Elbow pain Laterality: right Qualified Code: M25.521 - Pain in right elbow Disposition: Home Discharge Condition Condition: Improved Patient Instructions: Arm Pain (ED), Elbow Sprain (ED), Fall Prevention (ED) Additional Instructions: Thank you for allowing us to be a part of your care today. Your x rays did not show any signs of a fracture, though as discussed, sometimes some fractures don' t show up on initial x rays. If you have any worsening pain, numbness, swelling , decreased sensation, problems moving your arm or hand, chest pain, or if there 's anything else of concern to you, please return to the ED immediately. Follow up with your primary care doctor in the next few days. Referrals: Santiago Funez MD (PCP) Alizaibrudolph Attestation Portions of this note were transcribed by Nadine Strange. I, Dr. Domínguez personally performed the history, physical exam and medical decision-making; I reviewed and confirmed the accuracy of the information in the transcribed note. Signed by: Cindy Moreland, 05/26/2017. copies to: Santiago Funez MD, William B MD May 26, 2017 18:47 NADINE STRANGE May 26, 2017 18:53
[2017-05-26 19:21] VITALS: BP 103/70; PULSE 66; O2SAT 96
== END 2017-05-26 19:23 | disposition home or self-care (01) ==
LOC: SED 16:15
DX: M25.521 Pain in right elbow (principal); W01.0XXA Fall on same level from slipping, tripping and stumbling without subsequent striking against object, initial encounter; Y93.9 Activity, unspecified; Y92.9 Unspecified place or not applicable; Y99.8 Other external cause status; I11.0 Hypertensive heart disease with heart failure; I50.9 Heart failure, unspecified; I25.10 Atherosclerotic heart disease of native coronary artery without angina pectoris; E11.40 Type 2 diabetes mellitus with diabetic neuropathy, unspecified; I25.2 Old myocardial infarction; Z86.73 Personal history of transient ischemic attack (TIA), and cerebral infarction without residual deficits; F17.200 Nicotine dependence, unspecified, uncomplicated; Z79.82 Long term (current) use of aspirin; Z79.4 Long term (current) use of insulin; Z79.01 Long term (current) use of anticoagulants; Z88.0 Allergy status to penicillin; Z88.1 Allergy status to other antibiotic agents; Z88.5 Allergy status to narcotic agent; Z88.8 Allergy status to other drugs, medicaments and biological substances; Z91.030 Bee allergy status
CPT/HCPCS: 73030; 73080; 73110; 96374; 96376; 99284; J2270

== ENCOUNTER 2017-06-05 11:17 | Emergency (ER) | payer OTHER ==
[~2017-06-05] VITALS: Ht 172.7 cm; Wt 118.2 kg
[~2017-06-05 11:17] MED LIST changes: +METO-386 PO; -METO25TA99 PO; +NITR0.4T38 SL; -NITR0.4T6 SL; +OXYC-408 PO; -OXYC1TAB91 PO
[2017-06-05 11:19] VITALS: BP 119/80; PULSE 70; RESP 16; O2SAT 97
[2017-06-05] MEDS ORDERED: 0.9% Sodium Chloride 1,000 ML IV ONE (11:25)
[2017-06-05] MEDS ORDERED: Ondansetron 2 mg/mL 2 mL Inj IVPUSH ONE (11:25)
--- NOTE | 2017-06-05 11:43 | ED.REPORT ---
HPI-Abd Pain M 40 and Over Date of Service Jun 05, 2017 ED Provider: Lizet Hargrove MD The pt is a 47 y/o male w/ a hx of kidney stones, type 2 diabetes, CHF, COPD, and CAD presenting to the ED complaining of R flank pain onset 0130 this morning. He is also experiencing hematuria that is much brighter red than his other episodes of kidney stones. He reports passing either a little stone or a chunk of blood last night. The pt also reports being told he has 212 kidney stones as well as having a few that are too big to pass. Denies chest pain, and SOB. The pt was hospitalized 3 weeks ago for an unstable angina. Nursing Notes Stated Complaint: POSSIBLE KIDNEY STONES Chief Complaint: Male Abdominal Pain Nursing Notes Reviewed: Yes Allergies: Coded Allergies: Honey Bee (Verified Allergy, Severe, anaphylaxis, 06/05/17) Penicillins (Verified Allergy, Severe, SWELLING, HIVES, ITCHING, 06/05/17) TAPE (Verified Allergy, Mild, blisters, 06/05/17) levetiracetam (Verified Allergy, Unknown, 06/05/17) "Sleep all day long" hydromorphone (Verified Adverse Reaction, Intermediate, HALLUCINATIONS, "HIGH", 06/05/17) sumatriptan (Verified Adverse Reaction, Intermediate, CONVULSIONS, SHAKES , 06/05/17) Scheduled Allopurinol (Allopurinol) 300 Mg Tablet 300 MG PO HS Aspirin (Aspirin) 81 Mg Tablet 81 MG PO QAM Atorvastatin (Lipitor) 80 Mg Tablet 80 MG PO HS Clopidogrel (Clopidogrel) 75 Mg Tablet 75 MG PO QAM Doxazosin (Cardura) 4 Mg Tablet 8 MG PO QAM Finasteride (Finasteride) 5 Mg Tablet 5 MG PO QAM Fluoxetine (Fluoxetine) 40 Mg Capsule 40 MG PO QAM Furosemide (Furosemide) 40 Mg Tablet 40 MG PO QAM Gabapentin (Gabapentin) 600 Mg Tablet 600 MG PO BID Insulin Glargine (Lantus U100 Insulin Vial) 100 Unit/Ml Vial 80 UNIT SUBQ BID Insulin Regular, Human (HUMulin-R U100 Insulin Vial) 100 Unit/1 Ml Vial 40 UNIT SUBQ BIDWM BREAKFAST AND DINNER Insulin Regular, Human (HUMulin-R U100 Insulin Vial) 100 Unit/1 Ml Vial 2-20 UNIT SUBQ ACHS SLIDING SCALE Isosorbide MN ER (Isosorbide MN ER) 60 Mg Tab.er.24h 60 MG PO QAM Lisinopril (Lisinopril) 2.5 Mg Tablet 2.5 MG PO QAM Metoprolol Succinate ER (Metoprolol Succinate ER) 25 Mg Tab.er.24h 25 MG PO QAM Oxycodone HCl/Acetaminophen (Endocet 10-325 mg Tablet) 1 Each Tablet 2 EACH PO QID Pantoprazole DR (Pantoprazole DR) 40 Mg Tablet.dr 40 MG PO QAM Potassium Chloride ER (Potassium Chloride ER) 20 Meq Tablet.er 20 MEQ PO QAM TAKE WITH FOOD Tamsulosin ER (Tamsulosin ER) 0.4 Mg Cap.er.24h 0.8 MG PO QAM Scheduled PRN Acetaminophen (Acetaminophen) 500 Mg Tablet 500-1,000 MG PO Q6H PRN PRN For Pain Albuterol HFA (Proair HFA) 8.5 Gm Hfa.aer.ad 2 PUFFS INHALATION QID PRN PRN For Shortness of Breath Ibuprofen (Ibuprofen) 200 Mg Capsule 800 MG PO DIRECTED PRN PRN For Pain Nitroglycerin SL (Nitroglycerin SL) 0.4 Mg Tab.subl 0.4 MG SL Q5MIN PRN PRN For Chest Pain General Time Seen by MD: 11:25 Chief Complaint Flank pain right Hx Obtained From: Patient Arrived By: Walk-in Sudden in Onset?: Yes Onset Occurred: 5 - 8 hours ago Symptom Duration: Since onset Recent Healthcare: Recent doctor visit, Recent hospitalization Similar Sx Previous: Yes Past Medical History Past Medical History Notes: Patient states has had "nine stents" placed at [facility] For CP 08/01/2016, 08/04/16, and 08/26/16 Multiple ED visits for CP, admitted for chest pain 11/21/2016 and 04/20/2017 with hospitalist diagnosis of narcotic seeking behavior Last admit 05/13/17 - Unstable angina Past Medical History CAD - multiple stents, cardiac caths 02/14, 03/12, 04/11, ad 04/17 w/stent placed to proximal LAD overlapping prior stent and "plavix non-responder" Syncope Type two diabetes with neuropathy Chronic back and leg pain Lower extremity DVT "years ago" per patient, details unclear History of migraines BPH Kidney Stones On Warfarin and Plavix HTN Seizure Spinal meningitis [place] 2014 Concern for TIA October 2016, MRI/MRA negative Reports: COPD, Congestive heart failure, Stroke Reports: Heroin use Past Surgical History Shoulder surgery (joint replacement) Left knee surgery Ganglion cyst in right hand Cardiac stents ("x9" - at [facility]) Reports: Cholecystectomy Family History Both of the patient's parents are still alive Smoking History Current Every Day Smoker Social History Alcohol Use: Denies alcohol use Drug Use: Denies drug use Other Social History: Good social support, , Local resident 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 Physical Exam Initial Vital Signs Vital Signs (First) Date Time Temp Pulse Resp B/P Pulse Ox O2 Delivery O2 Flow Rate FiO2 06/05/17 11:19 36.8 70 16 119/80 97 Room Air Initial VS: Reviewed Head / Eyes: Atraumatic, Normocephalic, PERRL ENT: Mucous membranes moist, Conjunctiva normal, No scleral icterus Neck: Supple, Non-tender, Full range of motion Extremities: Vascular intact, Neuro intact, No swelling, No tenderness Skin: Warm, Dry, No cyanosis Neurologic: Alert, Oriented, Nonfocal Psychiatric: Mood/affect normal, Behavior normal, Normal thought content General/Constitutional: Awake, Alert Pt is in a moderate amount of pain Respiratory / Chest: Atraumatic, Breath sounds NL, Breath sounds = bilat Cardiovascular: Heart rate NL, Regular rhythm, Heart sounds NL Abdomen: Soft Back: Full range of motion R flank pain is not reproducible on exam Interpretation & Diagnostics Interpretation & Diagnostics: CT abd 03/12 shows non obstructing Right renal stones 3-5mm in size Lab Results Interpretation Result Diagram: 06/05/17 1150 06/05/17 1150 Test 06/05/17 11:50 06/05/17 12:50 White Blood Count 8.1th/mm3 (3.8-10.1) Red Blood Count 4.70mil/mm3 (4.40-5.80) Hemoglobin 14.0g/dL (13.8-17.2) Hematocrit 41.2% (41.0-50.0) Mean Corpuscular Volume 87.7fL (81-100) Mean Corpuscular Hemoglobin 29.8pg (27.0-35.0) Mean Corpuscular Hemoglobin Concent 34.0% (32.0-37.0) Red Cell Distribution Width 13.0% (12.3-15.4) Platelet Count 186bil/L (150-400) Neutrophils (%) (Auto) 78.7% (40-74) Lymphocytes (%) (Auto) 14.7% (14-46) Monocytes (%) (Auto) 5.6% (4-12) Eosinophils (%) (Auto) 0.5% (0-5) Basophils (%) (Auto) 0.4% (0-3) Sodium Level 134mEq/L (134-144) Potassium Level 4.1mEq/L (3.5-5.2) Chloride Level 97mEq/L (97-108) Carbon Dioxide Level 18mmol/L (18-29) Blood Urea Nitrogen 12mg/dL (6-24) Creatinine 0.69mg/dL (0.76-1.27) Estimat Glomerular Filtration Rate 130mL/min (>59) Glucose Level 400mg/dL (60-99) Calcium Level 8.4mg/dL (8.5-10.1) Magnesium Level 1.8mg/dL (1.6-2.6) Total Bilirubin 0.4mg/dL (0.0-1.2) Aspartate Amino Transf (AST/SGOT) 19U/L (0-50) Alanine Aminotransferase (ALT/SGPT) 15U/L (0-44) Alkaline Phosphatase 128U/L (25-150) Total Protein 6.7g/dL (6.4-8.4) Albumin 3.8g/dL (3.4-5.0) Lipase 5U/L (13-60) Hold Pereyra Top Tube Received (Received) Hold Urine Received (Received) CT Abd / Pelvis Interpretation IMPRESSION: 1. Nonobstructive right nephrolithiasis. No hydronephrosis, hydroureter, or ureterolithiasis. 2. No acute intra-abdominal findings. The appendix is not visualized; however there are no ancillary findings to suggest acute appendicitis. Dictated by: Kira Austin M.D. on 06/05/2017 at 16:09 Re-Eval/Medical Decision Med Decision/Clinical Course Right nephrolithiasis. Suspect he has passed a stone. Typically uses 10 mg of oxycodone 4 times a day for chronic back pain. We will have him increased to 15 mg as an option for the next 2-3 days and will give him an additional #15 5 mg tablets to add to his 10 mg tabs at home Source of Hx: Old records Time of Eval: 13:31 Re-Evaluation/Progress Note: Rechecked pt. Discussed plan for a CT. The pain has not improved significantly after Fentanyl, Toradol, and Morphine. Time of Eval: 16:51 Patient Status: Condition improved (but incubator tender) Re-Evaluation/Progress Note: Reviewed results of CT scan. Suspect that he passed completely a stone is having residual pain at this point Counseled Regarding: Diagnosis, Lab results, Need for follow-up, When/why to return to ED Discharge & Departure Primary Impression: Nephrolithiasis Additional Impressions: Renal colic on left side Hematuria Ruled Out: Pyelonephritis, Ureteral obstruction Disposition: Home Vital Signs - All Vital Signs Date Time Temp Pulse Resp B/P Pulse Ox O2 Delivery O2 Flow Rate FiO2 06/05/17 16:17 63 18 107/48 96 Room Air 06/05/17 11:19 36.8 70 16 119/80 97 Room Air )( All Prior VS Reviewed: Yes Condition: Stable Referrals: Santiago Funez MD (PCP) Scribe Attestation Portions of this note were transcribed by Nader Angulo. I, Dr. Hargrove personally performed the history, physical exam and medical decision-making; I reviewed and confirmed the accuracy of the information in the transcribed note. copies to: Santiago Funez MD, Shawna L MD Jun 05, 2017 11:43 Nader Angulo Jun 05, 2017 11:50
[2017-06-05 12:02] LABS: BASOPHILS % (AUTO) 0.4 % (0-3); EOSINOPHILS % (AUTO) 0.5 % (0-5); MONOCYTES % (AUTO) 5.6 % (4-12); Mean Corpuscular Hemoglobin 29.8 pg (27.0-35.0); Mean Corpuscular Volume 87.7 fL (81-100); NEUTROPHILS % (AUTO) 78.7 % (40-74); Platelet Count 186 bil/L (150-400)
[2017-06-05] MEDS: fentaNYL-PF 50 mCg/mL 2 mL Inj IVPUSH PRN ×2 (12:06→12:50)
[2017-06-05 12:25] LABS: Magnesium 1.8 mg/dL (1.6-2.6)
[2017-06-05] MEDS ORDERED: oxyCODONE-Acetamin 5-325 mg Tablet PO ONE (14:55)
--- NOTE | 2017-06-05 16:15 | DRSVH ---
PROCEDURE: CT KUB ([id number]) INDICATIONS: R flank pain, hematuria TECHNIQUE: Noncontrast 5 mm thick sections acquired from the diaphragms to the symphysis. 5 mm thick coronal an d sagittal reformats were then performed. For radiation dose reduction, the following was used: aut omated exposure control, adjustment of mA and/or kV according to patient size. COMPARISON: [facility], CT, CT KUB, 04/01/2016, 1:39. FINDINGS: Image quality: Excellent. Lung bases: Lung bases are clear. Heart size is normal. Urinary system: Both kidneys are normal in size. Nonobstructing 3 mm diameter calculi are present wi thin the lower pole of the right kidney. No left nephrolithiasis. No hydronephrosis. There is mild bi lateral perinephric fat stranding. Both ureters appear non-dilated throughout their expected courses. Bladder wall thickness is normal; no calcified bladder stones. Other solid organs: Liver and spleen are normal in size. Gallbladder is surgically absent. Pancrea s is atrophic. No adrenal nodules. Peritoneum and bowel: Unenhanced bowel loops demonstrate normal wall thickness and caliber. The appe ndix is not visualized; however there is no discrete right lower quadrant fluid or fat stranding to s uggest acute appendicitis. No free fluid or air. Nodes and vessels: No retroperitoneal or mesenteric adenopathy by size criteria. Aorta and inferior vena cava are normal in caliber. There are scattered atheromatous calcifications throughout the aor ta and iliac arteries bilaterally. Abdominal wall: No ventral hernias. Pelvis: No free pelvic fluid. No inguinal adenopathy. There is small bilateral fat-containing ingui nal hernias. Bones: No suspicious bony lesions. No vertebral body compression fractures. IMPRESSION: 1. Nonobstructive right nephrolithiasis. No hydronephrosis, hydroureter, or ureterolithiasis. 2. No acute intra-abdominal findings. The appendix is not visualized; however there are no ancillary findings to suggest acute appendicitis. Dictated by: Kira Austin M.D. on 06/05/2017 at 16:09 Approved by: Kira Austin M.D. on 06/05/2017 at 16:14
[2017-06-05 16:17] VITALS: BP 107/48; PULSE 63; RESP 18; O2SAT 96
[2017-06-05] MEDS ORDERED: HYDROmorphone 1 mg/mL Inj IVPUSH ONE (16:50)
[2017-06-05] MEDS ORDERED: OXYC-474 PO (16:59)
[2017-06-05 17:06] VITALS: BP 118/55; PULSE 94; RESP 22; O2SAT 95
[2017-06-06] MEDS ORDERED: NAPR-873 PO (15:05)
== END 2017-06-05 17:16 | disposition home or self-care (01) ==
LOC: SED 11:17
DX: N20.0 Calculus of kidney (principal); N23 Unspecified renal colic; R31.9 Hematuria, unspecified; E11.40 Type 2 diabetes mellitus with diabetic neuropathy, unspecified; I50.9 Heart failure, unspecified; J44.9 Chronic obstructive pulmonary disease, unspecified; I25.10 Atherosclerotic heart disease of native coronary artery without angina pectoris; I11.0 Hypertensive heart disease with heart failure; I25.2 Old myocardial infarction; F17.200 Nicotine dependence, unspecified, uncomplicated; Z87.442 Personal history of urinary calculi; Z79.01 Long term (current) use of anticoagulants; Z86.73 Personal history of transient ischemic attack (TIA), and cerebral infarction without residual deficits; Z95.5 Presence of coronary angioplasty implant and graft; Z86.718 Personal history of other venous thrombosis and embolism; Z91.030 Bee allergy status; Z88.0 Allergy status to penicillin; Z88.8 Allergy status to other drugs, medicaments and biological substances; Z88.5 Allergy status to narcotic agent; Z79.82 Long term (current) use of aspirin; Z79.4 Long term (current) use of insulin
CPT/HCPCS: 36415; 74176; 80053; 83690; 83735; 85025; 96361; 96374; 96375; 99285; J1170; J1885; J2270; J2405; J3010; J7030

== ENCOUNTER 2017-06-06 12:20 | Emergency (ER) | payer OTHER ==
[~2017-06-06] VITALS: Ht 172.7 cm; Wt 118.2 kg
[~2017-06-06 12:20] MED LIST changes: -METO-386 PO; +METO25TA99 PO; -NITR0.4T38 SL; +NITR0.4T6 SL; -OXYC-408 PO; +OXYC-474 PO; +OXYC1TAB91 PO
[2017-06-06 12:33] VITALS: BP 129/75; PULSE 60; RESP 10; O2SAT 97
--- NOTE | 2017-06-06 13:18 | ED.REPORT ---
HPI-Abd Pain M 40 and Over Date of Service Jun 06, 2017 ED Provider: Dr. De Santiago The pt is a 47 y/o male with a hx of kidney stones, type 2 diabetes, CHF, COPD, and CAD who presents to [facility] ED complaining of right flank pain, onset yesterday. Associated sx include hematuria. He "urinated pure blood with chunks of clots" this morning. The pt was seen at the ED yesterday for the same complaint. His CT showed non-obstructive right nephrolithiasis and no findings suggesting appendicitis. He was discharged and told to return if not feeling better. The pt took an oxycodone this morning. Nursing Notes Stated Complaint: KIDNEY STONES Chief Complaint: Male Abdominal Pain Nursing Notes Reviewed: Yes Allergies: Coded Allergies: Honey Bee (Verified Allergy, Severe, anaphylaxis, 06/05/17) Penicillins (Verified Allergy, Severe, SWELLING, HIVES, ITCHING, 06/05/17) TAPE (Verified Allergy, Mild, blisters, 06/05/17) levetiracetam (Verified Allergy, Unknown, 06/05/17) "Sleep all day long" hydromorphone (Verified Adverse Reaction, Intermediate, HALLUCINATIONS, "HIGH", 06/05/17) sumatriptan (Verified Adverse Reaction, Intermediate, CONVULSIONS, SHAKES , 06/05/17) Scheduled Allopurinol (Allopurinol) 300 Mg Tablet 300 MG PO HS Aspirin (Aspirin) 81 Mg Tablet 81 MG PO QAM Atorvastatin (Lipitor) 80 Mg Tablet 80 MG PO HS Clopidogrel (Clopidogrel) 75 Mg Tablet 75 MG PO QAM Doxazosin (Cardura) 4 Mg Tablet 8 MG PO QAM Finasteride (Finasteride) 5 Mg Tablet 5 MG PO QAM Fluoxetine (Fluoxetine) 40 Mg Capsule 40 MG PO QAM Furosemide (Furosemide) 40 Mg Tablet 40 MG PO QAM Gabapentin (Gabapentin) 600 Mg Tablet 600 MG PO BID Insulin Glargine (Lantus U100 Insulin Vial) 100 Unit/Ml Vial 80 UNIT SUBQ BID Insulin Regular, Human (HUMulin-R U100 Insulin Vial) 100 Unit/1 Ml Vial 40 UNIT SUBQ BIDWM BREAKFAST AND DINNER Insulin Regular, Human (HUMulin-R U100 Insulin Vial) 100 Unit/1 Ml Vial 2-20 UNIT SUBQ ACHS SLIDING SCALE Isosorbide MN ER (Isosorbide MN ER) 60 Mg Tab.er.24h 60 MG PO QAM Lisinopril (Lisinopril) 2.5 Mg Tablet 2.5 MG PO QAM Metoprolol Succinate ER (Metoprolol Succinate ER) 25 Mg Tab.er.24h 25 MG PO QAM Oxycodone HCl/Acetaminophen (Endocet 10-325 mg Tablet) 1 Each Tablet 2 EACH PO QID Pantoprazole DR (Pantoprazole DR) 40 Mg Tablet.dr 40 MG PO QAM Potassium Chloride ER (Potassium Chloride ER) 20 Meq Tablet.er 20 MEQ PO QAM TAKE WITH FOOD Tamsulosin ER (Tamsulosin ER) 0.4 Mg Cap.er.24h 0.8 MG PO QAM Scheduled PRN Acetaminophen (Acetaminophen) 500 Mg Tablet 500-1,000 MG PO Q6H PRN PRN For Pain Albuterol HFA (Proair HFA) 8.5 Gm Hfa.aer.ad 2 PUFFS INHALATION QID PRN PRN For Shortness of Breath Ibuprofen (Ibuprofen) 200 Mg Capsule 800 MG PO DIRECTED PRN PRN For Pain Naproxen (Naproxen) 375 Mg Tablet 375 MG PO BID PRN PRN For Pain Nitroglycerin SL (Nitroglycerin SL) 0.4 Mg Tab.subl 0.4 MG SL Q5MIN PRN PRN For Chest Pain Oxycodone (Roxicodone) 5 Mg Tablet 5 MG PO QID PRN PRN For Pain can add 5mg to your usual 10mg dose of oxycodone to equal 15mg every 6 hours for this acute pain General Time Seen by MD: 13:17 Chief Complaint Flank pain right Hx Obtained From: Patient Arrived By: Walk-in Sudden in Onset?: No Onset Occurred: Yesterday Symptom Duration: Since onset Location: : Flank right Quality: Painful Radiation: : Does not radiate Severity: Current: Severe Severity: Maximum: Severe Recent Healthcare: Recent doctor visit Similar Sx Previous: Yes Past Medical History Past Medical History Notes: Patient states has had "nine stents" placed at [facility] For CP 08/01/2016, 08/04/16, and 08/26/16 Multiple ED visits for CP, admitted for chest pain 11/21/2016 and 04/20/2017 with hospitalist diagnosis of narcotic seeking behavior Last admit 05/13/17 - Unstable angina Past Medical History CAD - multiple stents, cardiac caths 02/14, 03/12, 04/11, ad 04/17 w/stent placed to proximal LAD overlapping prior stent and "plavix non-responder" Syncope Type two diabetes with neuropathy Chronic back and leg pain Lower extremity DVT "years ago" per patient, details unclear History of migraines BPH Kidney Stones On Warfarin and Plavix HTN Seizure Spinal meningitis [place] 2014 Concern for TIA October 2016, MRI/MRA negative Reports: COPD, Congestive heart failure, Stroke Reports: Heroin use Past Surgical History Shoulder surgery (joint replacement) Left knee surgery Ganglion cyst in right hand Cardiac stents ("x9" - at [facility]) Reports: Cholecystectomy Family History Both of the patient's parents are still alive Smoking History Current Every Day Smoker Social History Alcohol Use: Denies alcohol use Drug Use: Denies drug use Other Social History: Good social support, , Local resident 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 Physical Exam Initial Vital Signs Vital Signs (First) Date Time Temp Pulse Resp B/P Pulse Ox O2 Delivery O2 Flow Rate FiO2 06/06/17 12:33 37.1 60 10 129/75 97 Room Air Initial VS: Reviewed Head / Eyes: Atraumatic, Normocephalic Neck: Supple, Non-tender, Full range of motion Extremities: Vascular intact, Neuro intact, No swelling, No tenderness Skin: Warm, Dry, No cyanosis Neurologic: Alert, Oriented, Nonfocal General/Constitutional: Awake, Alert, Cooperative Distress / Hydration: Positive: Distress mild Respiratory / Chest: Atraumatic, Breath sounds NL, Breath sounds = bilat, No respiratory distress, No rales, No rhonchi, No wheezing Cardiovascular: Heart rate NL, Regular rhythm, Heart sounds NL, No gallop, No murmurs, No rubs Abdomen: Atraumatic, Soft, Non-tender, No guarding, No rebound Back: Atraumatic Right sided CVA tenderness Re-Eval/Medical Decision Med Decision/Clinical Course Reviewed records from yesterday, labs were normal, vital signs normal today, urinalysis today shows blood without signs of infection. Patient is known chronic pain patient which is likely making it more difficult to manage his pain. I do not suspect any new or different diagnosis other than nephrolithiasis. CT scan yesterday showed a stone within the ureter which may be passing now. We will plan to discharge on naproxen and follow-up with his primary for further narcotic medications. Return and follow-up precautions given Source of Hx: Old records Time of Eval: 15:01 Re-Evaluation/Progress Note: Rechecked pt. Discussed lab results, diagnosis and plan to discharge. Pt understands and agrees with the plan. F/U instruction and RTER warning given. All questions addressed. Counseled Regarding: Diagnosis, Lab results, Need for follow-up, When/why to return to ED Discharge & Departure Primary Impression: Nephrolithiasis Disposition: Home Vital Signs - All Vital Signs Date Time Temp Pulse Resp B/P Pulse Ox O2 Delivery O2 Flow Rate FiO2 06/06/17 15:40 36.2 61 20 133/91 97 Room Air 06/06/17 12:33 37.1 60 10 129/75 97 Room Air )( All Prior VS Reviewed: Yes Condition: Stable Additional Instructions: we believe you are passing another kidney stone. Take naproxen twice daily. Continue your oxycodone. Call your doctor today for further higher dose narcotic medication as needed. Call urology today for follow-up as needed. Return to the ER as needed for high fever, persistent vomiting, severe uncontrolled pain, or other concerns. Referrals: Santiago Funez MD (PCP) Nam Winston MD Scribrudolph Attestation Portions of this note were transcribed by Shivam Eller. I,, personally performed the history, physical exam and medical decision-making;I reviewed and confirmed the accuracy of the information in the transcribed note. Signed by Cindy Oleary. 06/06/17 copies to: Santiago Funez MD; Nam Winston MD, Timothy S DO Jun 06, 2017 13:18 Shivam Eller Jun 06, 2017 13:37
[2017-06-06] MEDS ORDERED: oxyCODONE-Acetamin 5-325 mg Tablet PO ONE (13:30)
[2017-06-06] MEDS ORDERED: oxyCODONE-Acetamin 10-325 mg Tablet PO ONE (13:30)
[2017-06-06] MEDS ORDERED: Ondansetron 8 mg ODT Tablet PO ONE (14:15)
[2017-06-06] MEDS ORDERED: NAPR375T2 PO (15:05)
[2017-06-06 15:40] VITALS: BP 133/91; PULSE 61; RESP 20; O2SAT 97
== END 2017-06-06 15:41 | disposition home or self-care (01) ==
LOC: SED 12:20
DX: N20.0 Calculus of kidney (principal); I11.0 Hypertensive heart disease with heart failure; I50.9 Heart failure, unspecified; J44.9 Chronic obstructive pulmonary disease, unspecified; I25.2 Old myocardial infarction; I25.10 Atherosclerotic heart disease of native coronary artery without angina pectoris; G43.909 Migraine, unspecified, not intractable, without status migrainosus; E11.59 Type 2 diabetes mellitus with other circulatory complications; E11.40 Type 2 diabetes mellitus with diabetic neuropathy, unspecified; F17.200 Nicotine dependence, unspecified, uncomplicated; Z86.73 Personal history of transient ischemic attack (TIA), and cerebral infarction without residual deficits; Z87.442 Personal history of urinary calculi; Z95.5 Presence of coronary angioplasty implant and graft; Z79.4 Long term (current) use of insulin; Z79.82 Long term (current) use of aspirin; Z88.0 Allergy status to penicillin; Z88.5 Allergy status to narcotic agent; Z88.8 Allergy status to other drugs, medicaments and biological substances; Z91.030 Bee allergy status; Z91.048 Other nonmedicinal substance allergy status
CPT/HCPCS: 96372; 99284; J1885

== ENCOUNTER 2017-06-15 09:42 | Emergency (ER) | payer OTHER ==
[~2017-06-15] VITALS: Ht 172.7 cm; Wt 113.6 kg
[~2017-06-15 09:42] MED LIST changes: +METO-386 PO; -METO25TA99 PO; +NAPR-873 PO; +NITR0.4T38 SL; -NITR0.4T6 SL; +OXYC-408 PO; -OXYC1TAB91 PO
[2017-06-15 09:46] VITALS: BP 123/85; PULSE 82; RESP 16; O2SAT 98
--- NOTE | 2017-06-15 09:51 | ED.REPORT ---
HPI-General Illness Date of Service Jun 15, 2017 ED Provider: Dr. Domínguez Pt is a 47 y/o male w/ a hx of known ureteral calculi, long history of CAD w/ multiple stents, IDDM, CHF, COPD, opioid dependence, presenting to the ED with his family c/o worsening bilateral flank pain onset yesterday. He c/o associated hematuria. He describes his pain as intermittent and exacerbated by movement. He has known right ureteral stone for which he is scheduled for a lithotripsy and has been experiencing right flank pain for 1 week. He has chronic anginal symptoms, however denies any new or worsening chest pain at this time whatsoever. No shortness of breath. Pt denies fever, chills, vomiting. Nursing Notes Stated Complaint: CHEST PAIN Chief Complaint: General Complaint Nursing Notes Reviewed: Yes Allergies: Coded Allergies: Honey Bee (Verified Allergy, Severe, anaphylaxis, 06/15/17) Penicillins (Verified Allergy, Severe, SWELLING, HIVES, ITCHING, 06/15/17) TAPE (Verified Allergy, Mild, blisters, 06/15/17) levetiracetam (Verified Allergy, Unknown, 06/15/17) "Sleep all day long" hydromorphone (Verified Adverse Reaction, Intermediate, HALLUCINATIONS, "HIGH", 06/15/17) sumatriptan (Verified Adverse Reaction, Intermediate, CONVULSIONS, SHAKES , 06/15/17) Scheduled Allopurinol (Allopurinol) 300 Mg Tablet 300 MG PO HS Aspirin (Aspirin) 81 Mg Tablet 81 MG PO QAM Atorvastatin (Lipitor) 80 Mg Tablet 80 MG PO HS Clopidogrel (Clopidogrel) 75 Mg Tablet 75 MG PO QAM Doxazosin (Cardura) 4 Mg Tablet 8 MG PO QAM Finasteride (Finasteride) 5 Mg Tablet 5 MG PO QAM Fluoxetine (Fluoxetine) 40 Mg Capsule 40 MG PO QAM Furosemide (Furosemide) 40 Mg Tablet 40 MG PO QAM Gabapentin (Gabapentin) 600 Mg Tablet 600 MG PO BID Insulin Glargine (Lantus U100 Insulin Vial) 100 Unit/Ml Vial 80 UNIT SUBQ BID Insulin Regular, Human (HUMulin-R U100 Insulin Vial) 100 Unit/1 Ml Vial 40 UNIT SUBQ BIDWM BREAKFAST AND DINNER Insulin Regular, Human (HUMulin-R U100 Insulin Vial) 100 Unit/1 Ml Vial 2-20 UNIT SUBQ ACHS SLIDING SCALE Isosorbide MN ER (Isosorbide MN ER) 60 Mg Tab.er.24h 60 MG PO QAM Lisinopril (Lisinopril) 2.5 Mg Tablet 2.5 MG PO QAM Metoprolol Succinate ER (Metoprolol Succinate ER) 25 Mg Tab.er.24h 25 MG PO QAM Oxycodone HCl/Acetaminophen (Endocet 10-325 mg Tablet) 1 Each Tablet 2 EACH PO QID Pantoprazole DR (Pantoprazole DR) 40 Mg Tablet.dr 40 MG PO QAM Potassium Chloride ER (Potassium Chloride ER) 20 Meq Tablet.er 20 MEQ PO QAM TAKE WITH FOOD Tamsulosin ER (Tamsulosin ER) 0.4 Mg Cap.er.24h 0.4 MG PO DAILY Scheduled PRN Acetaminophen (Acetaminophen) 500 Mg Tablet 500-1,000 MG PO Q6H PRN PRN For Pain Albuterol HFA (Proair HFA) 8.5 Gm Hfa.aer.ad 2 PUFFS INHALATION QID PRN PRN For Shortness of Breath Ibuprofen (Ibuprofen) 200 Mg Capsule 800 MG PO DIRECTED PRN PRN For Pain Naproxen (Naproxen) 375 Mg Tablet 375 MG PO BID PRN PRN For Pain Nitroglycerin SL (Nitroglycerin SL) 0.4 Mg Tab.subl 0.4 MG SL Q5MIN PRN PRN For Chest Pain Oxycodone (Roxicodone) 5 Mg Tablet 5 MG PO QID PRN PRN For Pain can add 5mg to your usual 10mg dose of oxycodone to equal 15mg every 6 hours for this acute pain General Time Seen by MD: 13:00 Chief Complaint Other (Hematuria) Hx Obtained From: Patient Arrived By: Walk-in Sudden in Onset?: No Onset Occurred: Yesterday Symptom Duration: Intermittent Location: : Back Quality: Painful Severity: Current: Moderate Severity: Maximum: Moderate Recent Healthcare: Previous diagnosis Similar Sx Previous: Yes Past Medical History Past Medical History Notes: Patient states has had "nine stents" placed at [facility] For CP 08/01/2016, 08/04/16, and 08/26/16 Multiple ED visits for CP, admitted for chest pain 11/21/2016 and 04/20/2017 with hospitalist diagnosis of narcotic seeking behavior Last admit 05/17/17 - Unstable angina Past Medical History CAD - multiple stents, cardiac caths 02/14, 03/12, 04/11, ad 04/17 w/stent placed to proximal LAD overlapping prior stent and "plavix non-responder" Syncope Type two diabetes with neuropathy Chronic back and leg pain Lower extremity DVT "years ago" per patient, details unclear History of migraines BPH Kidney Stones On Warfarin and Plavix HTN Seizure Spinal meningitis [place] 2014 Concern for TIA October 2016, MRI/MRA negative Reports: COPD, Congestive heart failure, Stroke Reports: Heroin use Past Surgical History Shoulder surgery (joint replacement) Left knee surgery Ganglion cyst in right hand Cardiac stents ("x9" - at [facility]) Reports: Cholecystectomy Family History Both of the patient's parents are still alive Smoking History Current Every Day Smoker Social History Alcohol Use: Denies alcohol use Drug Use: Denies drug use Other Social History: Good social support, , 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 Physical Exam Nursing note and vitals reviewed. Constitutional: Well-developed, well-nourished. Not diaphoretic. Head: Normocephalic and atraumatic. Mouth/Throat: Oropharynx is clear and moist. No oropharyngeal exudate. Eyes: EOM are normal. Pupils are equal, round, and reactive to light. Neck: Supple, no tracheal deviation. Cardiovascular: Normal rate, regular rhythm. Equal and intact distal pulses throughout. Pulmonary/Chest: Effort normal and breath sounds normal. No respiratory distress. : no testicular tenderness or swelling. Mild R CVA TTP. Abdominal: Soft. No distension. There is no tenderness, rebound, or guarding. Bowel sounds present. Musculoskeletal: Range of motion grossly intact, moving all extremities. No edema or tenderness appreciated. Neurological: AOx3. Grossly nonfocal exam. Strength and sensation intact and equal to bilateral upper and lower extremities. Skin: Warm and dry, no rashes or pallor appreciated. Psychiatric: Appropriate mood and affect. Behavior appears normal. Vital Signs Vital Signs Date Time Temp Pulse Resp B/P Pulse Ox O2 Delivery O2 Flow Rate FiO2 06/15/17 11:45 67 20 114/69 97 Room Air 06/15/17 09:46 36.5 82 16 123/85 98 Room Air Initial VS: Reviewed Interpretation & Diagnostics Lab Results Interpretation Result Diagram: 06/15/17 1035 06/15/17 0955 Test 06/15/17 09:55 06/15/17 10:19 06/15/17 10:35 Prothrombin Time 9.8sec (8.1-12.5) Prothromb Time International Ratio 0.92ratio Sodium Level 138mEq/L (134-144) Potassium Level 4.0mEq/L (3.5-5.2) Chloride Level 101mEq/L (97-108) Carbon Dioxide Level 19mmol/L (18-29) Blood Urea Nitrogen 16mg/dL (6-24) Creatinine 0.67mg/dL (0.76-1.27) Estimat Glomerular Filtration Rate 134mL/min (>59) Glucose Level 354mg/dL (60-99) Calcium Level 8.9mg/dL (8.5-10.1) Magnesium Level 2.0mg/dL (1.6-2.6) Total Bilirubin 0.3mg/dL (0.0-1.2) Aspartate Amino Transf (AST/SGOT) 14U/L (0-50) Alanine Aminotransferase (ALT/SGPT) 12U/L (0-44) Alkaline Phosphatase 142U/L (25-150) Troponin T 0.010ug/L (0.0-0.011) Pro-B-Type Natriuretic Peptide 116.8pg/mL (0-121) Total Protein 7.5g/dL (6.4-8.4) Albumin 4.1g/dL (3.4-5.0) Lipase 5U/L (13-60) Urine Color Nohemi (YELLOW) Urine Appearance Cloudy (CLEAR,HAZY) Urine pH 6.5 (5.0-8.0) Urine Specific Procious 1.040 (1.003-1.035) Urine Protein Negativemg/dL (NEG,TRACE) Urine Glucose (UA) 1000mg/dL (NEGATIVE) Urine Ketones Tracemg/dL (NEGATIVE) Urine Occult Blood Large (NEGATIVE) Urine Nitrite Negative (NEGATIVE) Urine Bilirubin Negative (NEGATIVE) Urine Ictotest Negative (Negative) Urine Urobilinogen Normalmg/dL (NORMAL) Urine Leukocyte Esterase Negative (NEGATIVE) Urine RBC Packed/hpf (0-2) Urine WBC 0-5/hpf (0-5) Urine Epithelial Cells Few/hpf (NONE-MOD) Urine Crystals None seen (NONE SEEN) Urine Bacteria None/hpf (NONE-FEW) Urine Hyaline Casts None/lpf (NONE) Urine Granular Casts None seen (NONE SEEN) Urine Waxy Casts None seen (NONE SEEN) Urine Red Blood Cell Casts None seen (NONE SEEN) Urine White Blood Cell Casts None seen (NONE SEEN) Urine Mucus None seen (None Seen) Urine Trichomonas None seen (NONE SEEN) Urine Yeast None (NONE SEEN) Urinalysis Comment None Urine Culture Reflexed Not indicated White Blood Count 8.2th/mm3 (3.8-10.1) Red Blood Count 5.00mil/mm3 (4.40-5.80) Hemoglobin 14.9g/dL (13.8-17.2) Hematocrit 42.2% (41.0-50.0) Mean Corpuscular Volume 84.4fL (81-100) Mean Corpuscular Hemoglobin 29.8pg (27.0-35.0) Mean Corpuscular Hemoglobin Concent 35.3% (32.0-37.0) Red Cell Distribution Width 12.6% (12.3-15.4) Platelet Count 209bil/L (150-400) Neutrophils (%) (Auto) 74.5% (40-74) Lymphocytes (%) (Auto) 18.7% (14-46) Monocytes (%) (Auto) 5.9% (4-12) Eosinophils (%) (Auto) 0.6% (0-5) Basophils (%) (Auto) 0.2% (0-3) ECG Interpretation ECG Interpretation: Sinus rhythm rate 67 Time: 12:56 Interpreted by: ED physician Normal ECG Interpretation: No acute ischemic changes X-Ray Chest Interpretation Chest Xray Interpretation: IMPRESSION: No acute cardiopulmonary findings. Dictated by: Kira Austin M.D. on 06/15/2017 at 11:54 Approved by: Kira Austin M.D. on 06/15/2017 at 11:55 View: Portable, 1 view Interpretation / Wet Read by: Interpret - Radiologist CT Abd / Pelvis Interpretation KUB study: IMPRESSION: 1. Right ureterolithiasis, new when compared with the study dated 06/05/17. The ureteral stones are likely present within the right renal collecting system on the study dated 06/05/17. No hydronephrosis or hydroureter. This finding was discussed with Dr. Domínguez at 8:29 AM on 06/15/17. 2. No other acute intra-abdominal findings. Diverticulosis. No acute diverticulitis. The appendix is not visualized; however there are no ancillary findings to suggest acute appendicitis. Dictated by: Kira Austin M.D. on 06/15/2017 at 10:24 Approved by: Kira Austin M.D. on 06/15/2017 at 10:32 ADDENDUM: Please note, 2 stones are visualized within the proximal with RIGHT ureter, not the left ureter as erroneously described in the body of the report. Dictated by: Kira Austin M.D. on 06/15/2017 at 11:00 Approved by: Kira Austin M.D. on 06/15/2017 at 11:01 Study type: Abdominal CT no contrast Interpretation / Wet Read by: Interpret - Radiologist Re-Eval/Medical Decision Med Decision/Clinical Course In summary, 47-year-old male with a long-standing history of coronary artery disease presenting to the ED for evaluation of abdominal pain. Patient does have a history of significant coronary artery disease, however he is not having any new symptoms today whatsoever. EKG with no acute ischemic changes, troponin negative. His pain does seem consistent with previous kidney stones. CBC and CMP grossly within normal limits with the exception of a glucose of 354 ; has not taken his insulin yet and tends to run high. Lipase within normal limits. Urinalysis does reveal large amount of blood, however no evidence of infection at this time. Chest x-ray negative. CT scan of the patient's abdomen demonstrates right-sided ureterolithiasis with 2 stones in the right ureter measuring 3 and 4 mm in diameter; mild right perinephric fat stranding but no hydronephrosis or hydroureter. No other acute findings. Patient is already on oxycodone and has an appointment scheduled with urology next week. Plan discharge home with very careful return precautions, a prescription for Flomax, and PCP follow-up in the next several days. Patient agreeable to the plan as stated, no further questions. Source of Hx: Old records Time of Eval: 13:15 Re-Evaluation/Progress Note: Pt rechecked. Informed pt of plan for discharge. Pt understands and agrees with plan for discharge. F/U instructions and RTER warnings given. All questions addressed. Counseled Regarding: Diagnosis, Lab results, Need for follow-up, When/why to return to ED Discharge & Departure Primary Impression: Right ureteral calculus Disposition: Home Discharge Condition All VS Reviewed: Yes Condition: Stable Patient Instructions: Kidney Stones (ED) Additional Instructions: Thank you for allowing us to be a part of your care in the ED today. Your emergency department results, including CT scan of the abdomen, chest x-ray , EKG, and labs are reassuring. You have 2 kidney stones in the right ureter. I do not think that there is an emergent cause for your symptoms today that would require admission to the hospital. Please schedule a follow up appointment with your primary care physician and urologist tomorrow for a recheck. Take Flomax as directed. Please return to the emergency department for any new or worsening symptoms including any worsening pain, pain or burning with urination, nausea, vomiting, abdominal pain, shortness of breath, chest pain, one sided weakness/numbness, fevers, or chills, or if there's anything else of concern to you. Referrals: Santiago Funez MD (PCP) Scribe Attestation Portions of this note were transcribed by Prosper Valdez. I, Dr. Domínguez, personally performed the history, physical exam and medical decision-making; I reviewed and confirmed the accuracy of the information in the transcribed note. copies to: Santiago Funez MD, William B MD Jun 15, 2017 09:51 PROSPER VALDEZ Jun 15, 2017 11:02 Zackary Domínguez MD Jun 15, 2017 09:51 PROSPER VALDEZ Jun 15, 2017 11:02
[2017-06-15] MEDS ORDERED: Ondansetron 2 mg/mL 2 mL Inj IVPUSH ONE (09:55)
--- NOTE | 2017-06-15 10:33 | DRSVH ---
PROCEDURE: CT KUB ([id number]) INDICATIONS: abdominal pain, voiding blood; hx stones TECHNIQUE: Noncontrast 5 mm thick sections acquired from the diaphragms to the symphysis. 5 mm thick coronal an d sagittal reformats were then performed. For radiation dose reduction, the following was used: aut omated exposure control, adjustment of mA and/or kV according to patient size. COMPARISON: [facility], CT, CT KUB, 06/05/2017, 15:48. FINDINGS: Image quality: Excellent. Lung bases: Lung bases are clear. Heart size is normal. Urinary system: Both kidneys are normal size. The nonobstructing calculi visualized within the right renal collecting system on the study dated 06/05/17 are no longer visualized. 2 stones are now visuali zed within the proximal left ureter, presumably representing the stones previously visualized within the right kidney. These measure 3 and 4 mm in diameter. There is mild right perinephric fat stranding , but no andreia right hydronephrosis or hydroureter. No left nephrolithiasis, hydroureter, ureterolith iasis, or hydronephrosis. The bladder is partially fluid-filled and thin-walled. No bladder calculi. Other solid organs: Liver and spleen are normal in size. Gallbladder is surgically absent. The head of the pancreas is atrophic. No adrenal nodules. Peritoneum and bowel: Unenhanced bowel loops demonstrate normal wall thickness and caliber. The appe ndix is not visualized; however there is no discrete right lower quadrant fluid or fat stranding to s uggest acute appendicitis.There are scattered sigmoid diverticula. No evidence for diverticulitis. No free fluid or air. Nodes and vessels: No retroperitoneal or mesenteric adenopathy by size criteria. Aorta and inferior vena cava are normal in caliber. There are scattered atheromatous calcifications throughout the aor ta and iliac arteries bilaterally. Abdominal wall: No ventral hernias. Pelvis: No free pelvic fluid. No inguinal adenopathy. There is small bilateral fat-containing ingui nal hernias. Bones: No suspicious bony lesions. No vertebral body compression fractures. Moderate degenerative c hanges present throughout the thoracolumbar spine. IMPRESSION: 1. Right ureterolithiasis, new when compared with the study dated 06/05/17. The ureteral stones are li shivam present within the right renal collecting system on the study dated 06/05/17. No hydronephrosis o r hydroureter. This finding was discussed with Dr. Domínguez at 8:29 AM on 06/15/17. 2. No other acute intra-abdominal findings. Diverticulosis. No acute diverticulitis. The appendix is not visualized; however there are no ancillary findings to suggest acute appendicitis. Dictated by: Kira Austin M.D. on 06/15/2017 at 10:24 Approved by: Kira Austin M.D. on 06/15/2017 at 10:32
[2017-06-15 10:36] LABS: INR 0.92 ratio
[2017-06-15 10:45] LABS: TROPONIN T 0.01 ug/L (0.0-0.011)
[2017-06-15 10:52] LABS: APPEARANCE,URINE CLOUDY (CLEAR,HAZY); COLOR,URINE AMBER (YELLOW); OCCULT BLOOD,URINE LARGE (NEGATIVE); PH,URINE 6.5 (5.0-8.0); UROBILINOGEN,URINE NORMAL (NORMAL)
[2017-06-15 10:54] LABS: BASOPHILS % (AUTO) 0.2 % (0-3); EOSINOPHILS % (AUTO) 0.6 % (0-5); MONOCYTES % (AUTO) 5.9 % (4-12); Mean Corpuscular Hemoglobin 29.8 pg (27.0-35.0); Mean Corpuscular Volume 84.4 fL (81-100); NEUTROPHILS % (AUTO) 74.5 % (40-74); Platelet Count 209 bil/L (150-400)
[2017-06-15 11:01] LABS: ICTOTEST,URINE NEGATIVE (Negative)
[2017-06-15] MEDS ORDERED: Ketorolac 15 mg/mL Inj IVPUSH ONE (11:05)
[2017-06-15 11:45] VITALS: BP 114/69; PULSE 67; RESP 20; O2SAT 97
--- NOTE | 2017-06-15 11:56 | DRSVH ---
PROCEDURE: X-RAY CHEST ONE VIEW, PORTABLE ([id number]) INDICATIONS: chest pain, epigastric pain, voiding blood TECHNIQUE: One view of the chest was acquired. COMPARISON: [facility], CR, XR CHEST 1VW (PORTABLE), 05/16/2017, 22:50. FINDINGS: Surgical changes and devices: None. Lungs and pleura: No pleural effusions or pneumothorax. Lungs are clear. Mediastinum: Mediastinal contours appear normal. Heart size is normal. Bones and chest wall: No suspicious bony lesions. Overlying soft tissues appear unremarkable. IMPRESSION: No acute cardiopulmonary findings. Dictated by: Kira Austin M.D. on 06/15/2017 at 11:54 Approved by: Kira Austin M.D. on 06/15/2017 at 11:55
[2017-06-15] MEDS ORDERED: TAMS0.4C29 PO (13:25)
[2017-06-15 13:32] VITALS: BP 124/69; PULSE 72; RESP 20; O2SAT 97
[2017-06-15 14:00] VITALS: BP 124/69; PULSE 72; RESP 20; O2SAT 97
[2017-06-16] MEDS ORDERED: OXYC1TAB24 PO (01:56)
[2017-06-16] MEDS ORDERED: ONDA8TAB10 PO (01:56)
== END 2017-06-15 14:01 | disposition home or self-care (01) ==
LOC: SED 09:42
DX: N20.1 Calculus of ureter (principal); E11.40 Type 2 diabetes mellitus with diabetic neuropathy, unspecified; I25.10 Atherosclerotic heart disease of native coronary artery without angina pectoris; I11.0 Hypertensive heart disease with heart failure; I50.9 Heart failure, unspecified; I25.2 Old myocardial infarction; Z86.73 Personal history of transient ischemic attack (TIA), and cerebral infarction without residual deficits; F17.200 Nicotine dependence, unspecified, uncomplicated; Z79.82 Long term (current) use of aspirin; Z79.4 Long term (current) use of insulin; Z88.0 Allergy status to penicillin; Z88.5 Allergy status to narcotic agent; Z88.8 Allergy status to other drugs, medicaments and biological substances
CPT/HCPCS: 36415; 71010; 74176; 80053; 81000; 82948; 83690; 83735; 83880; 84484; 85025; 85610; 93005; 96374; 96375; 96376; 99285; J2270; J2405

== ENCOUNTER 2017-06-15 21:28 | Emergency (ER) | payer OTHER ==
[~2017-06-15] VITALS: Ht 172.7 cm; Wt 113.6 kg
[2017-06-15 21:35] VITALS: BP 135/91; PULSE 92; RESP 18; O2SAT 97
--- NOTE | 2017-06-15 22:35 | ED.REPORT ---
HPI-Abd Pain M 40 and Over Date of Service Jun 15, 2017 ED Provider: Girish Burt MD Patient is a 47 year old male with a history of known ureteral calculi, long history of CAD w/ multiple stents, IDDM, CHF, COPD, opioid dependence and frequent ED visits presenting to the ED complaining of continuing nausea. Associated symptoms include vomiting, hematuria and right flank pain. Patient denies fever, shortness of breath or chills. He describes his pain as intermittent and exacerbated by movement. He has known right ureteral stone for which he is scheduled for a lithotripsy and has been experiencing right flank pain for 1 week. The patient was seen earlier today in the ED and had a CT KUB, which showed ureterolithiasis but no hydronephrosis or hydroureter. He said that he doesn't have any pain medication at home and his last dose of medication was this morning. Nursing Notes Stated Complaint: KIDNEY PAIN Chief Complaint: Back Pain or Injury Nursing Notes Reviewed: Yes Allergies: Coded Allergies: Honey Bee (Verified Allergy, Severe, anaphylaxis, 06/15/17) Penicillins (Verified Allergy, Severe, SWELLING, HIVES, ITCHING, 06/15/17) TAPE (Verified Allergy, Mild, blisters, 06/15/17) levetiracetam (Verified Allergy, Unknown, 06/15/17) "Sleep all day long" hydromorphone (Verified Adverse Reaction, Intermediate, HALLUCINATIONS, "HIGH", 06/15/17) sumatriptan (Verified Adverse Reaction, Intermediate, CONVULSIONS, SHAKES , 06/15/17) Scheduled Allopurinol (Allopurinol) 300 Mg Tablet 300 MG PO HS Aspirin (Aspirin) 81 Mg Tablet 81 MG PO QAM Atorvastatin (Lipitor) 80 Mg Tablet 80 MG PO HS Clopidogrel (Clopidogrel) 75 Mg Tablet 75 MG PO QAM Doxazosin (Cardura) 4 Mg Tablet 8 MG PO QAM Finasteride (Finasteride) 5 Mg Tablet 5 MG PO QAM Fluoxetine (Fluoxetine) 40 Mg Capsule 40 MG PO QAM Furosemide (Furosemide) 40 Mg Tablet 40 MG PO QAM Gabapentin (Gabapentin) 600 Mg Tablet 600 MG PO BID Insulin Glargine (Lantus U100 Insulin Vial) 100 Unit/Ml Vial 80 UNIT SUBQ BID Insulin Regular, Human (HUMulin-R U100 Insulin Vial) 100 Unit/1 Ml Vial 40 UNIT SUBQ BIDWM BREAKFAST AND DINNER Insulin Regular, Human (HUMulin-R U100 Insulin Vial) 100 Unit/1 Ml Vial 2-20 UNIT SUBQ ACHS SLIDING SCALE Isosorbide MN ER (Isosorbide MN ER) 60 Mg Tab.er.24h 60 MG PO QAM Lisinopril (Lisinopril) 2.5 Mg Tablet 2.5 MG PO QAM Metoprolol Succinate ER (Metoprolol Succinate ER) 25 Mg Tab.er.24h 25 MG PO QAM Ondansetron ODT (Ondansetron ODT) 8 Mg Tab.rapdis 8 MG PO QID Oxycodone HCl/Acetaminophen (Endocet 10-325 mg Tablet) 1 Each Tablet 2 EACH PO QID Pantoprazole DR (Pantoprazole DR) 40 Mg Tablet.dr 40 MG PO QAM Potassium Chloride ER (Potassium Chloride ER) 20 Meq Tablet.er 20 MEQ PO QAM TAKE WITH FOOD Tamsulosin ER (Tamsulosin ER) 0.4 Mg Cap.er.24h 0.4 MG PO DAILY Scheduled PRN Acetaminophen (Acetaminophen) 500 Mg Tablet 500-1,000 MG PO Q6H PRN PRN For Pain Albuterol HFA (Proair HFA) 8.5 Gm Hfa.aer.ad 2 PUFFS INHALATION QID PRN PRN For Shortness of Breath Ibuprofen (Ibuprofen) 200 Mg Capsule 800 MG PO DIRECTED PRN PRN For Pain Naproxen (Naproxen) 375 Mg Tablet 375 MG PO BID PRN PRN For Pain Nitroglycerin SL (Nitroglycerin SL) 0.4 Mg Tab.subl 0.4 MG SL Q5MIN PRN PRN For Chest Pain Oxycodone (Roxicodone) 5 Mg Tablet 5 MG PO QID PRN PRN For Pain can add 5mg to your usual 10mg dose of oxycodone to equal 15mg every 6 hours for this acute pain oxyCODONE-Acetaminophen 5-325 mg (oxyCODONE-Acetaminophen 5-325 mg) 1 Each Tablet 1-2 TAB PO Q6H PRN PRN For Pain General Time Seen by MD: 22:29 Chief Complaint Nausea Hx Obtained From: Patient Arrived By: Walk-in Sudden in Onset?: No Onset Occurred: 1 week ago Symptom Duration: Intermittent Progression since Onset: Unchanged Location: : Flank right Quality: Painful Severity: Current: Moderate Recent Healthcare: Recent doctor visit Similar Sx Previous: Yes Past Medical History Past Medical History Notes: Patient states has had "nine stents" placed at [facility] For CP 08/01/2016, 08/04/16, and 08/26/16 Multiple ED visits for CP, admitted for chest pain 11/21/2016 and 04/20/2017 with hospitalist diagnosis of narcotic seeking behavior Last admit 05/17/17 - Unstable angina Past Medical History CAD - multiple stents, cardiac caths 02/14, 03/12, 04/11, ad 04/17 w/stent placed to proximal LAD overlapping prior stent and "plavix non-responder" Syncope Type two diabetes with neuropathy Chronic back and leg pain Lower extremity DVT "years ago" per patient, details unclear History of migraines BPH Kidney Stones On Warfarin and Plavix Seizure Spinal meningitis [place] 2014 Concern for TIA October 2016, MRI/MRA negative Reports: COPD, Congestive heart failure, Hypertension, Stroke Reports: Heroin use Past Surgical History Shoulder surgery (joint replacement) Left knee surgery Ganglion cyst in right hand Cardiac stents ("x9" - at [facility]) Reports: Cholecystectomy Family History Both of the patient's parents are still alive Smoking History Current Every Day Smoker Social History Alcohol Use: Denies alcohol use Drug Use: Denies drug use Other Social History: Good social support, Frequent ED visitor, , Local resident 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 Skin: Denies Itching, Denies Rash Physical Exam Physical Exam Notes: exam limited by body habitus Initial Vital Signs Vital Signs (First) Date Time Temp Pulse Resp B/P Pulse Ox O2 Delivery O2 Flow Rate FiO2 06/15/17 21:35 36.6 92 18 135/91 97 Room Air Initial VS: Reviewed, Vital signs abnormal General/Constitutional: Awake, Alert Respiratory / Chest: Atraumatic, Breath sounds NL, Breath sounds = bilat, No respiratory distress Cardiovascular: Heart rate NL, Regular rhythm, Heart sounds NL Abdomen: Atraumatic, Soft Tenderness/Guarding/Rebound: Positive: Tender diffuse Back: Atraumatic Head / Eyes: Atraumatic, Normocephalic, PERRL, EOMI Skin: Atraumatic, Color NL, No rash, Warm, Dry Neurologic: Oriented X3, Speech NL Interpretation & Diagnostics Lab Results Interpretation Result Diagram: 06/15/17 2300 06/15/17 2300 Test 06/15/17 22:31 06/15/17 23:00 06/16/17 00:12 Urine Color Red (YELLOW) Urine Appearance Cloudy (CLEAR,HAZY) Urine pH 6.5 (5.0-8.0) Urine Specific [place] <1.005 (1.003-1.035) Urine Protein Negativemg/dL (NEG,TRACE) Urine Glucose (UA) >1000mg/dL (NEGATIVE) Urine Ketones Negativemg/dL (NEGATIVE) Urine Occult Blood Large (NEGATIVE) Urine Nitrite Negative (NEGATIVE) Urine Bilirubin Negative (NEGATIVE) Urine Urobilinogen Normalmg/dL (NORMAL) Urine Leukocyte Esterase Negative (NEGATIVE) Urine RBC Packed/hpf (0-2) Urine WBC 0-5/hpf (0-5) Urine Epithelial Cells Few/hpf (NONE-MOD) Urine Crystals None seen (NONE SEEN) Urine Bacteria Few/hpf (NONE-FEW) Urine Hyaline Casts None/lpf (NONE) Urine Granular Casts None seen (NONE SEEN) Urine Waxy Casts None seen (NONE SEEN) Urine Red Blood Cell Casts None seen (NONE SEEN) Urine White Blood Cell Casts None seen (NONE SEEN) Urine Mucus None seen (None Seen) Urine Trichomonas None seen (NONE SEEN) Urine Yeast None (NONE SEEN) Urinalysis Comment None Urine Culture Reflexed Not indicated Hold Urine Received (Received) White Blood Count 10.4th/mm3 (3.8-10.1) Red Blood Count 4.69mil/mm3 (4.40-5.80) Hemoglobin 14.0g/dL (13.8-17.2) Hematocrit 39.0% (41.0-50.0) Mean Corpuscular Volume 83.2fL (81-100) Mean Corpuscular Hemoglobin 29.9pg (27.0-35.0) Mean Corpuscular Hemoglobin Concent 35.9% (32.0-37.0) Red Cell Distribution Width 12.9% (12.3-15.4) Platelet Count 208bil/L (150-400) Neutrophils (%) (Auto) 68.7% (40-74) Lymphocytes (%) (Auto) 22.1% (14-46) Monocytes (%) (Auto) 7.6% (4-12) Eosinophils (%) (Auto) 0.9% (0-5) Basophils (%) (Auto) 0.5% (0-3) Sodium Level 128mEq/L (134-144) Potassium Level 4.4mEq/L (3.5-5.2) Chloride Level 92mEq/L (97-108) Carbon Dioxide Level 20mmol/L (18-29) Blood Urea Nitrogen 18mg/dL (6-24) Creatinine 0.86mg/dL (0.76-1.27) Estimat Glomerular Filtration Rate 100mL/min (>59) Glucose Level 511mg/dL (60-99) Calcium Level 8.9mg/dL (8.5-10.1) Magnesium Level 2.0mg/dL (1.6-2.6) Total Bilirubin 0.3mg/dL (0.0-1.2) Aspartate Amino Transf (AST/SGOT) 18U/L (0-50) Alanine Aminotransferase (ALT/SGPT) 13U/L (0-44) Alkaline Phosphatase 128U/L (25-150) Total Protein 7.4g/dL (6.4-8.4) Albumin 3.7g/dL (3.4-5.0) Lipase 5U/L (13-60) Hold Pereyra Top Tube Received (Received) Troponin T < 0.010ug/L (0.0-0.011) Lab Results Interpretation: Elevated glucose without evidence of DKA 0 wbc per hpf Re-Eval/Medical Decision Med Decision/Clinical Course 47-year-old male with a right distal obstructing urethral stone. He has been having trouble controlling his pain and his blood sugars. He was given fluids and pain management here and partial correction of his glucose. He is being discharged home with pain medication and nausea medication and instructions for his diabetes management. If he has continued problems he may need to be admitted. His urologist is in [place] so it would make more sense for him to be admitted there. He will follow-up at [facility] ER if he has continued symptoms. Source of Hx: Old records Summary of Info: KUB study from 8/201/17 in the morning: IMPRESSION: 1. Right ureterolithiasis, new when compared with the study dated 06/05/17. The ureteral stones are likely present within the right renal collecting system on the study dated 06/05/17. No hydronephrosis or hydroureter. This finding was discussed with Dr. Domínguez at 8:29 AM on 06/15/17. 2. No other acute intra-abdominal findings. Diverticulosis. No acute diverticulitis. The appendix is not visualized; however there are no ancillary findings to suggest acute appendicitis. Dictated by: Kira Austin M.D. on 06/15/2017 at 10:24 Approved by: Kira Austin M.D. on 06/15/2017 at 10:32 ADDENDUM: Please note, 2 stones are visualized within the proximal with RIGHT ureter, not the left ureter as erroneously described in the body of the report. Dictated by: Kira Austin M.D. on 06/15/2017 at 11:00 Approved by: Kira Austin M.D. on 06/15/2017 at 11:01 Study type: Abdominal CT no contrast Interpretation / Wet Read by: Interpret - Radiologist Time of Eval: 00:12 Patient Status: Mild relief Time of Eval: 00:56 Re-Evaluation/Progress Note: Discussed plan for discharge. Patient understands and agrees vto plan. All questions were addressed. Counseled Regarding: Diagnosis, Lab results, Need for follow-up, When/why to return to ED Discharge & Departure Primary Impression: Ureterolithiasis Disposition: Home Vital Signs - All Vital Signs Date Time Temp Pulse Resp B/P Pulse Ox O2 Delivery O2 Flow Rate FiO2 06/16/17 02:07 36.6 76 14 96/80 97 Room Air 06/15/17 21:35 36.6 92 18 135/91 97 Room Air )( All Prior VS Reviewed: Yes Condition: Stable Additional Instructions: Keep your scheduled urology appointment. If your pain is not improved, you can return to the ED in [place] for possible admission where he your urologist practices. You can take the Oxycodone as prescribed for pain.Take 1 Zofran every 6 hours as needed for nausea. Attached is a referral for a Suboxone clinic you can follow up with if you would like to transition to a partial opiate agonist pain medication. Referrals: Santiago Funez MD (PCP) Alizaibrudolph Attestation Portions of this note were transcribed by Kia Michael. I, Dr. Burt personally performed the history, physical exam and medical decision-making; I reviewed and confirmed the accuracy of the information in the transcribed note. Signed by: Cindy Davidson, 06/15/17 copies to: Santiago Funez MD, Howard L MD Jun 15, 2017 22:35 Cristina Michael Jun 15, 2017 22:47
[2017-06-15] MEDS ORDERED: 0.9% Sodium Chloride 1,000 ML IV ONE (23:03)
[2017-06-15] MEDS ORDERED: Ondansetron 2 mg/mL 2 mL Inj IVPUSH PRN (23:05)
[2017-06-15 23:12] LABS: APPEARANCE,URINE CLOUDY (CLEAR,HAZY); COLOR,URINE RED (YELLOW); OCCULT BLOOD,URINE LARGE (NEGATIVE); PH,URINE 6.5 (5.0-8.0)
[2017-06-15 23:13] LABS: UROBILINOGEN,URINE NORMAL (NORMAL)
[2017-06-15 23:30] LABS: BASOPHILS % (AUTO) 0.5 % (0-3); EOSINOPHILS % (AUTO) 0.9 % (0-5); MONOCYTES % (AUTO) 7.6 % (4-12); Mean Corpuscular Hemoglobin 29.9 pg (27.0-35.0); Mean Corpuscular Volume 83.2 fL (81-100); NEUTROPHILS % (AUTO) 68.7 % (40-74); Platelet Count 208 bil/L (150-400)
[2017-06-16] MEDS ORDERED: Insulin Human REGular-Omnicell 100 Unit/mL SUBQ ONE (00:15)
[2017-06-16] MEDS ORDERED: _Ondansetron ODT 4 mg Tablet PO PRN (01:05)
[2017-06-16] MEDS ORDERED: _oxyCODONE/APAP 5-325 mg Tablet PO PRN (01:05)
[2017-06-16] MEDS ORDERED: OXYC1TAB24 PO (01:56)
[2017-06-16] MEDS ORDERED: ONDA8TAB10 PO (01:56)
[2017-06-16 02:07] VITALS: BP 96/80; PULSE 76; RESP 14; O2SAT 97
== END 2017-06-16 02:09 | disposition home or self-care (01) ==
LOC: SED 21:28
DX: N20.1 Calculus of ureter (principal); I11.0 Hypertensive heart disease with heart failure; I50.9 Heart failure, unspecified; E11.59 Type 2 diabetes mellitus with other circulatory complications; I25.10 Atherosclerotic heart disease of native coronary artery without angina pectoris; I25.2 Old myocardial infarction; J44.9 Chronic obstructive pulmonary disease, unspecified; G43.909 Migraine, unspecified, not intractable, without status migrainosus; E11.21 Type 2 diabetes mellitus with diabetic nephropathy; F17.200 Nicotine dependence, unspecified, uncomplicated; Z86.73 Personal history of transient ischemic attack (TIA), and cerebral infarction without residual deficits; Z87.442 Personal history of urinary calculi; Z95.5 Presence of coronary angioplasty implant and graft; Z98.890 Other specified postprocedural states; Z79.01 Long term (current) use of anticoagulants; Z79.82 Long term (current) use of aspirin; Z79.4 Long term (current) use of insulin; Z88.5 Allergy status to narcotic agent; Z91.030 Bee allergy status; Z91.048 Other nonmedicinal substance allergy status
CPT/HCPCS: 36415; 80053; 81000; 82948; 83690; 83735; 84484; 85025; 96361; 96374; 96375; 96376; 99285; J1815; J2270; J2405; J7030

== ENCOUNTER 2017-06-20 19:59 | Emergency (ER) | payer OTHER ==
[~2017-06-20] VITALS: Ht 172.7 cm; Wt 113.6 kg
[~2017-06-20 19:59] MED LIST changes: -METO-386 PO; +METO25TA99 PO; -NAPR-873 PO; +NAPR375T2 PO; -NITR0.4T38 SL; +NITR0.4T6 SL; +ONDA8TAB10 PO; -OXYC-408 PO; +OXYC1TAB24 PO; +OXYC1TAB91 PO
[2017-06-20 20:18] VITALS: BP 122/82; PULSE 78; RESP 16; O2SAT 96
[2017-06-20 21:08] LABS: BASOPHILS % (AUTO) 0.4 % (0-3); EOSINOPHILS % (AUTO) 0.8 % (0-5); MONOCYTES % (AUTO) 6.9 % (4-12); Mean Corpuscular Hemoglobin 29.8 pg (27.0-35.0); Mean Corpuscular Volume 84.9 fL (81-100); NEUTROPHILS % (AUTO) 68.4 % (40-74); Platelet Count 210 bil/L (150-400)
[2017-06-20 21:29] LABS: TROPONIN T 0.01 ug/L (0.0-0.011)
--- NOTE | 2017-06-20 21:37 | ED.REPORT ---
HPI-Chest Pain 40 and Over Date of Service Jun 20, 2017 ED Provider: Dr. Ramirez Pt is a 47 year old male with a hx of CHF, COPD, HTN, stroke, opiod abuse, CAD, DM, and kidney stones on Warfarin presenting to the ED complaining of 9/10 chest pain and dysuria. Associated symptoms include nausea. Denies diaphoresis, vomiting, cough, SOB, or wheezing. This morning he woke up at 0315 and was unable to urinate due to pain. He was seen in the ED 5 days ago for similar symptoms and had a CT showing a right ureteral calculus. Nursing Notes Stated Complaint: CHEST PAIN,KIDNEY STONE Chief Complaint: Chest Pain Nursing Notes Reviewed: Yes Allergies: Coded Allergies: Honey Bee (Verified Allergy, Severe, anaphylaxis, 06/20/17) Penicillins (Verified Allergy, Severe, SWELLING, HIVES, ITCHING, 06/20/17) TAPE (Verified Allergy, Mild, blisters, 06/20/17) levetiracetam (Verified Allergy, Unknown, 06/20/17) "Sleep all day long" hydromorphone (Verified Adverse Reaction, Intermediate, HALLUCINATIONS, "HIGH", 06/20/17) sumatriptan (Verified Adverse Reaction, Intermediate, CONVULSIONS, SHAKES , 06/20/17) Scheduled Allopurinol (Allopurinol) 300 Mg Tablet 300 MG PO HS Aspirin (Aspirin) 81 Mg Tablet 81 MG PO QAM Atorvastatin (Lipitor) 80 Mg Tablet 80 MG PO HS Clopidogrel (Clopidogrel) 75 Mg Tablet 75 MG PO QAM Doxazosin (Cardura) 4 Mg Tablet 8 MG PO QAM Finasteride (Finasteride) 5 Mg Tablet 5 MG PO QAM Fluoxetine (Fluoxetine) 40 Mg Capsule 40 MG PO QAM Furosemide (Furosemide) 40 Mg Tablet 40 MG PO QAM Gabapentin (Gabapentin) 600 Mg Tablet 600 MG PO BID Insulin Glargine (Lantus U100 Insulin Vial) 100 Unit/Ml Vial 80 UNIT SUBQ BID Insulin Regular, Human (HUMulin-R U100 Insulin Vial) 100 Unit/1 Ml Vial 40 UNIT SUBQ BIDWM BREAKFAST AND DINNER Insulin Regular, Human (HUMulin-R U100 Insulin Vial) 100 Unit/1 Ml Vial 2-20 UNIT SUBQ ACHS SLIDING SCALE Isosorbide MN ER (Isosorbide MN ER) 60 Mg Tab.er.24h 60 MG PO QAM Lisinopril (Lisinopril) 2.5 Mg Tablet 2.5 MG PO QAM Metoprolol Succinate ER (Metoprolol Succinate ER) 25 Mg Tab.er.24h 25 MG PO QAM Ondansetron ODT (Ondansetron ODT) 8 Mg Tab.rapdis 8 MG PO QID Oxycodone HCl/Acetaminophen (Endocet 10-325 mg Tablet) 1 Each Tablet 2 EACH PO QID Pantoprazole DR (Pantoprazole DR) 40 Mg Tablet.dr 40 MG PO QAM Potassium Chloride ER (Potassium Chloride ER) 20 Meq Tablet.er 20 MEQ PO QAM TAKE WITH FOOD Tamsulosin ER (Tamsulosin ER) 0.4 Mg Cap.er.24h 0.4 MG PO DAILY Scheduled PRN Acetaminophen (Acetaminophen) 500 Mg Tablet 500-1,000 MG PO Q6H PRN PRN For Pain Albuterol HFA (Proair HFA) 8.5 Gm Hfa.aer.ad 2 PUFFS INHALATION QID PRN PRN For Shortness of Breath Ibuprofen (Ibuprofen) 200 Mg Capsule 800 MG PO DIRECTED PRN PRN For Pain Naproxen (Naproxen) 375 Mg Tablet 375 MG PO BID PRN PRN For Pain Nitroglycerin SL (Nitroglycerin SL) 0.4 Mg Tab.subl 0.4 MG SL Q5MIN PRN PRN For Chest Pain Oxycodone (Roxicodone) 5 Mg Tablet 5 MG PO QID PRN PRN For Pain can add 5mg to your usual 10mg dose of oxycodone to equal 15mg every 6 hours for this acute pain oxyCODONE-Acetaminophen 5-325 mg (oxyCODONE-Acetaminophen 5-325 mg) 1 Each Tablet 1-2 TAB PO Q6H PRN PRN For Pain General Time Seen by MD: 21:36 Chief Complaint Chest pain, Other (Dysuria) Hx Obtained From: Patient Arrived By: Walk-in Sudden in Onset?: Yes Onset Occurred: 13 - 16 hours ago Symptom Duration: Since onset Location: : Chest left Quality: Painful Severity: Current: Pain level 9 out of 10 Severity: Maximum: Severe Recent Healthcare: No recent hospitalization, Recent doctor visit Similar Sx Previous: Yes Past Medical History Past Medical History Notes: Patient states has had "nine stents" placed at [facility] For CP 08/01/2016, 08/04/16, and 08/26/16 Multiple ED visits for CP, admitted for chest pain 11/21/2016 and 04/20/2017 with hospitalist diagnosis of narcotic seeking behavior Last admit 05/17/17 - Unstable angina Past Medical History CAD - multiple stents, cardiac caths 02/14, 03/12, 04/11, ad 04/17 w/stent placed to proximal LAD overlapping prior stent and "plavix non-responder" Syncope Type two diabetes with neuropathy Chronic back and leg pain Lower extremity DVT "years ago" per patient, details unclear History of migraines BPH Kidney Stones On Warfarin and Plavix Seizure Spinal meningitis [place] 2014 Concern for TIA October 2016, MRI/MRA negative Reports: COPD, Congestive heart failure, Hypertension, Stroke Reports: Heroin use Past Surgical History Shoulder surgery (joint replacement) Left knee surgery Ganglion cyst in right hand Cardiac stents ("x9" - at [facility]) Reports: Cholecystectomy Family History Both of the patient's parents are still alive Smoking History Current Every Day Smoker Social History Alcohol Use: Denies alcohol use Drug Use: Denies drug use Other Social History: Good social support, Frequent ED visitor, , Local resident 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 Male: Reports Dysuria Physical Exam Initial Vital Signs Vital Signs (First) Date Time Temp Pulse Resp B/P Pulse Ox O2 Delivery O2 Flow Rate FiO2 06/20/17 20:18 37.1 78 16 122/82 96 Room Air Initial VS: Reviewed Head / Eyes: Atraumatic, Normocephalic, PERRL ENT: Mucous membranes moist, Conjunctiva normal, No scleral icterus Extremities: Vascular intact, Neuro intact, No swelling, No tenderness Neurologic: Alert, Oriented, Nonfocal Psychiatric: Mood/affect normal, Behavior normal, Normal thought content General/Constitutional: Awake, Alert, No acute distress Respiratory / Chest: Breath sounds NL, Breath sounds = bilat, No respiratory distress, No rales, No rhonchi, No wheezing, No stridor, No chest tenderness Cardiovascular: Heart rate NL, Regular rhythm, Heart sounds NL Abdomen: Atraumatic, Soft, Non-tender Neck: Atraumatic, Supple, No meningismus, Full range of motion, No adenopathy, No JVD Interpretation & Diagnostics Lab Results Interpretation Result Diagram: 06/20/17 2100 06/20/17 2100 Test 06/20/17 21:00 06/20/17 22:29 06/20/17 23:00 White Blood Count 9.5th/mm3 (3.8-10.1) Red Blood Count 4.84mil/mm3 (4.40-5.80) Hemoglobin 14.4g/dL (13.8-17.2) Hematocrit 41.1% (41.0-50.0) Mean Corpuscular Volume 84.9fL (81-100) Mean Corpuscular Hemoglobin 29.8pg (27.0-35.0) Mean Corpuscular Hemoglobin Concent 35.0% (32.0-37.0) Red Cell Distribution Width 12.9% (12.3-15.4) Platelet Count 210bil/L (150-400) Neutrophils (%) (Auto) 68.4% (40-74) Lymphocytes (%) (Auto) 23.3% (14-46) Monocytes (%) (Auto) 6.9% (4-12) Eosinophils (%) (Auto) 0.8% (0-5) Basophils (%) (Auto) 0.4% (0-3) Sodium Level 132mEq/L (134-144) Potassium Level 4.5mEq/L (3.5-5.2) Chloride Level 96mEq/L (97-108) Carbon Dioxide Level 19mmol/L (18-29) Blood Urea Nitrogen 19mg/dL (6-24) Creatinine 0.76mg/dL (0.76-1.27) Estimat Glomerular Filtration Rate 116mL/min (>59) Glucose Level 474mg/dL (60-99) Calcium Level 9.2mg/dL (8.5-10.1) Magnesium Level 2.0mg/dL (1.6-2.6) Total Bilirubin 0.3mg/dL (0.0-1.2) Aspartate Amino Transf (AST/SGOT) 20U/L (0-50) Alanine Aminotransferase (ALT/SGPT) 14U/L (0-44) Alkaline Phosphatase 140U/L (25-150) Total Protein 7.7g/dL (6.4-8.4) Albumin 4.0g/dL (3.4-5.0) Urine Color Yellow (YELLOW) Urine Appearance Slightly cloudy Urine pH 6.0 (5.0-8.0) Urine Specific [place] 1.034 (1.003-1.035) Urine Protein Negativemg/dL (NEG,TRACE) Urine Glucose (UA) >1000mg/dL (NEGATIVE) Urine Ketones Tracemg/dL (NEGATIVE) Urine Occult Blood Large (NEGATIVE) Urine Nitrite Negative (NEGATIVE) Urine Bilirubin Negative (NEGATIVE) Urine Urobilinogen Normalmg/dL (NORMAL) Urine Leukocyte Esterase Negative (NEGATIVE) Urine RBC >50/hpf (0-2) Urine WBC 0-5/hpf (0-5) Urine Epithelial Cells Occasional/hpf (NONE-MOD) Urine Crystals None seen (NONE SEEN) Urine Bacteria None/hpf (NONE-FEW) Urine Hyaline Casts None/lpf (NONE) Urine Granular Casts None seen (NONE SEEN) Urine Waxy Casts None seen (NONE SEEN) Urine Red Blood Cell Casts None seen (NONE SEEN) Urine White Blood Cell Casts None seen (NONE SEEN) Urine Mucus None seen (None Seen) Urine Trichomonas None seen (NONE SEEN) Urine Yeast None (NONE SEEN) Urinalysis Comment None Urine Culture Reflexed Not indicated Troponin T 0.010ug/L (0.0-0.011) ECG Interpretation ECG Interpretation: Low voltage precordial leads. Time: 20:37 Interpreted by: ED physician Normal ECG Interpretation: Normal rate (79), Normal sinus rhythm CT Abd / Pelvis Interpretation IMPRESSION: 4-5 mm right renal stones. No hydronephrosis. This report was transmitted to the emergency room at 06/20/2017 - 10:16:32 PM PDT. Study type: Abdominal CT no contrast Interpretation / Wet Read by: Interpret - Radiologist Re-Eval/Medical Decision Med Decision/Clinical Course 47-year-old with end-stage coronary disease, diabetes, continue cigarette use, presents with chest and flank pain. He reveals that he is run out of his oxycodone for home use, and has been without for three days. He was given oral oxycodone here with some relief, but was advised that we cannot prescribe home oxycodone to bridge his overuse of his prescription. Discharge now in stable condition, enzymes negative 2. Time of Eval: 23:36 Patient Status: Condition improved Re-Evaluation/Progress Note: Pt pain improved. Discussed CT results and plan for discharge. Pt understands and agrees. Counseled Regarding: Diagnosis, Lab results, Need for follow-up, When/why to return to ED Discharge & Departure Primary Impression: Chest pain Chest pain type: unspecified Qualified Code: R07.9 - Chest pain, unspecified Additional Impression: Opioid withdrawal Disposition: Home Discharge Condition All VS Reviewed: Yes Condition: Improved Patient Instructions: Chest Pain (ED) Additional Instructions: It is critical that you not allow yourself to run out of your pain medicine. As you and your doctor discussed, it will probably be necessary to increase your dose at your next renewal. Follow-up with your doctor in the office. Return if any immediate issues. Referrals: Santiago Funez MD (PCP) Cindy Attestation Portions of this note were transcribed by Alexandrea Strange. I, Dr. Ramirez personally performed the history, physical exam and medical decision-making; I reviewed and confirmed the accuracy of the information in the transcribed note. Signed by: Cindy Moreland, 06/20/2017. copies to: Santiago Funez MD, Christopher W MD Jun 20, 2017 21:37 ALEXANDREA STRANGE Jun 20, 2017 21:46
[2017-06-20] MEDS ORDERED: Insulin Human REGular-Omnicell 100 Unit/mL IV ONE (22:40)
[2017-06-20 22:53] LABS: APPEARANCE,URINE SLIGHTLY CLOUDY (CLEAR,HAZY); COLOR,URINE YELLOW (YELLOW); OCCULT BLOOD,URINE LARGE (NEGATIVE); UROBILINOGEN,URINE NORMAL (NORMAL)
[2017-06-20 23:14] VITALS: BP 134/84; PULSE 76; RESP 16; O2SAT 95
[2017-06-20] MEDS ORDERED: oxyCODONE ER 10 mg ER12 Tablet PO ONE (23:55)
[2017-06-21 00:29] VITALS: BP 134/84; PULSE 76; RESP 16; O2SAT 95
--- NOTE | 2017-06-21 09:45 | DRSVH ---
PROCEDURE: CT KUB ([id number]) INDICATIONS: bilat flank pain, dysuria, hx stones TECHNIQUE: Noncontrast 5 mm thick sections acquired from the diaphragms to the symphysis. 5 mm thick coronal an d sagittal reformats were then performed. For radiation dose reduction, the following was used: aut omated exposure control, adjustment of mA and/or kV according to patient size. COMPARISON: [facility], CT, CT KUB, 06/15/2017, 10:19. FINDINGS: Image quality: Excellent. Lung bases: Lung bases are clear. Heart size is normal. Urinary system: 2 renal calculi are present in the right kidney measuring 5 mm and 3 mm. Previously seen proximal right ureter stones are no longer present. Both kidneys are normal in size. No hydrone phrosis or perinephric fat stranding. Both ureters appear non-dilated throughout their expected cour ses. Bladder wall thickness is normal; no calcified bladder stones. Other solid organs: Liver and spleen are normal in size. Gallbladder is surgically absent. Pancrea s is normal in contours. There is a 7 mm calcification in pancreatic body. No adrenal nodules. Peritoneum and bowel: Unenhanced bowel loops demonstrate normal wall thickness and caliber. No free fluid or air. Nodes and vessels: No retroperitoneal or mesenteric adenopathy by size criteria. Aorta and inferior vena cava are normal in caliber. Abdominal wall: No ventral hernias. Pelvis: No free pelvic fluid. No inguinal hernias or adenopathy. Bones: No suspicious bony lesions. No vertebral body compression fractures. IMPRESSION: 1. Two right renal calculi measuring 5 mm and 3 mm. No hydronephrosis. 2. No left renal stone. No ureteral stones. Dictated by: Nicholas Zamora M.D. on 06/21/2017 at 9:35 Approved by: Nicholas Zamora M.D. on 06/21/2017 at 9:43
== END 2017-06-21 00:43 | disposition home or self-care (01) ==
LOC: SED 19:59
DX: R07.9 Chest pain, unspecified (principal); N20.0 Calculus of kidney; I50.9 Heart failure, unspecified; J44.9 Chronic obstructive pulmonary disease, unspecified; I10 Essential (primary) hypertension; I25.10 Atherosclerotic heart disease of native coronary artery without angina pectoris; E11.40 Type 2 diabetes mellitus with diabetic neuropathy, unspecified; I25.2 Old myocardial infarction; F17.200 Nicotine dependence, unspecified, uncomplicated; F11.23 Opioid dependence with withdrawal; Z95.5 Presence of coronary angioplasty implant and graft; Z90.49 Acquired absence of other specified parts of digestive tract; Z79.891 Long term (current) use of opiate analgesic; Z79.01 Long term (current) use of anticoagulants; Z79.02 Long term (current) use of antithrombotics/antiplatelets; Z79.82 Long term (current) use of aspirin; Z79.4 Long term (current) use of insulin; Z79.51 Long term (current) use of inhaled steroids; Z88.5 Allergy status to narcotic agent; Z88.0 Allergy status to penicillin; Z88.8 Allergy status to other drugs, medicaments and biological substances
CPT/HCPCS: 36415; 74176; 80053; 81000; 83735; 84484; 85025; 93005; 96372; 99285; J1815

== ENCOUNTER 2017-06-22 18:47 | Emergency (ER) | payer OTHER ==
[~2017-06-22] VITALS: Ht 172.7 cm; Wt 109.1 kg
[~2017-06-22 18:47] MED LIST changes: +METO-386 PO; -METO25TA99 PO; +NAPR-873 PO; -NAPR375T2 PO; +NITR0.4T38 SL; -NITR0.4T6 SL; +OXYC-408 PO; -OXYC1TAB91 PO
[2017-06-22 18:58] VITALS: BP 119/84; PULSE 86; RESP 16; O2SAT 95
--- NOTE | 2017-06-22 19:09 | ED.REPORT ---
HPI-Syncope Date of Service Jun 22, 2017 ED Provider: Byron Salazar MD Pt is a 47 y/o male with a history of CAD, cardiac stents x9, HTN, CHF, stroke, unstable angina, DM, and DVT on Warfarin and Plavix who presents to the ED via EMS with a syncopal episode onset a few hours ago. Pt's witnessed the syncopal episode in which they state he was washing his truck when he fell. Additional symptoms include chest pain, headache, neck pain, and bilateral earache. He denies vomiting, fever, diarrhea, bladder or bowel incontinence, or SOB. Nursing Notes Stated Complaint: CHEST PAIN, SYNCOPE Chief Complaint: Chest Pain Nursing Notes Reviewed: Yes Allergies: Coded Allergies: Honey Bee (Verified Allergy, Severe, anaphylaxis, 06/20/17) Penicillins (Verified Allergy, Severe, SWELLING, HIVES, ITCHING, 06/20/17) TAPE (Verified Allergy, Mild, blisters, 06/20/17) levetiracetam (Verified Allergy, Unknown, 06/20/17) "Sleep all day long" hydromorphone (Verified Adverse Reaction, Intermediate, HALLUCINATIONS, "HIGH", 06/20/17) sumatriptan (Verified Adverse Reaction, Intermediate, CONVULSIONS, SHAKES , 06/20/17) Scheduled Allopurinol (Allopurinol) 300 Mg Tablet 300 MG PO HS Aspirin (Aspirin) 81 Mg Tablet 81 MG PO QAM Atorvastatin (Lipitor) 80 Mg Tablet 80 MG PO HS Clopidogrel (Clopidogrel) 75 Mg Tablet 75 MG PO QAM Doxazosin (Cardura) 4 Mg Tablet 8 MG PO QAM Finasteride (Finasteride) 5 Mg Tablet 5 MG PO QAM Fluoxetine (Fluoxetine) 40 Mg Capsule 40 MG PO QAM Furosemide (Furosemide) 40 Mg Tablet 40 MG PO QAM Gabapentin (Gabapentin) 600 Mg Tablet 600 MG PO BID Insulin Glargine (Lantus U100 Insulin Vial) 100 Unit/Ml Vial 80 UNIT SUBQ BID Insulin Regular, Human (HUMulin-R U100 Insulin Vial) 100 Unit/1 Ml Vial 40 UNIT SUBQ BIDWM BREAKFAST AND DINNER Insulin Regular, Human (HUMulin-R U100 Insulin Vial) 100 Unit/1 Ml Vial 2-20 UNIT SUBQ ACHS SLIDING SCALE Isosorbide MN ER (Isosorbide MN ER) 60 Mg Tab.er.24h 60 MG PO QAM Lisinopril (Lisinopril) 2.5 Mg Tablet 2.5 MG PO QAM Metoprolol Succinate ER (Metoprolol Succinate ER) 25 Mg Tab.er.24h 25 MG PO QAM Ondansetron ODT (Ondansetron ODT) 8 Mg Tab.rapdis 8 MG PO QID Oxycodone HCl/Acetaminophen (Endocet 10-325 mg Tablet) 1 Each Tablet 2 EACH PO QID Pantoprazole DR (Pantoprazole DR) 40 Mg Tablet.dr 40 MG PO QAM Potassium Chloride ER (Potassium Chloride ER) 20 Meq Tablet.er 20 MEQ PO QAM TAKE WITH FOOD Tamsulosin ER (Tamsulosin ER) 0.4 Mg Cap.er.24h 0.4 MG PO DAILY Scheduled PRN Acetaminophen (Acetaminophen) 500 Mg Tablet 500-1,000 MG PO Q6H PRN PRN For Pain Albuterol HFA (Proair HFA) 8.5 Gm Hfa.aer.ad 2 PUFFS INHALATION QID PRN PRN For Shortness of Breath Ibuprofen (Ibuprofen) 200 Mg Capsule 800 MG PO DIRECTED PRN PRN For Pain Naproxen (Naproxen) 375 Mg Tablet 375 MG PO BID PRN PRN For Pain Nitroglycerin SL (Nitroglycerin SL) 0.4 Mg Tab.subl 0.4 MG SL Q5MIN PRN PRN For Chest Pain Oxycodone (Roxicodone) 5 Mg Tablet 5 MG PO QID PRN PRN For Pain can add 5mg to your usual 10mg dose of oxycodone to equal 15mg every 6 hours for this acute pain oxyCODONE-Acetaminophen 5-325 mg (oxyCODONE-Acetaminophen 5-325 mg) 1 Each Tablet 1-2 TAB PO Q6H PRN PRN For Pain General Time Seen by Provider: 19:00 Chief Complaint Lost consciousness Syncope Description: Single episode Hx Obtained From: Patient, Spouse Arrived By: Ambulance Quality: Painful Severity: Current: Moderate Severity: Maximum: Moderate Recent Healthcare: No recent doctor visit, Recent hospitalization Similar Sx Previous: No Past Medical History Past Medical History Notes: Patient states has had "nine stents" placed at [facility] For CP 08/01/2016, 08/04/16, and 08/26/16 Multiple ED visits for CP, admitted for chest pain 11/21/2016 and 04/20/2017 with hospitalist diagnosis of narcotic seeking behavior Last admit 05/17/17 - Unstable angina Past Medical History CAD - multiple stents, cardiac caths 02/14, 03/12, 04/11, ad 04/17 w/stent placed to proximal LAD overlapping prior stent and "plavix non-responder" Syncope Type two diabetes with neuropathy Chronic back and leg pain Lower extremity DVT "years ago" per patient, details unclear History of migraines BPH Kidney Stones On Warfarin and Plavix Seizure Spinal meningitis [place] 2014 Concern for TIA October 2016, MRI/MRA negative Reports: COPD, Congestive heart failure, Hypertension, Stroke Reports: Heroin use Past Surgical History Shoulder surgery (joint replacement) Left knee surgery Ganglion cyst in right hand Cardiac stents ("x9" - at Prov) Reports: Cholecystectomy Family History Both of the patient's parents are still alive Smoking History Current Every Day Smoker Social History Alcohol Use: Denies alcohol use Drug Use: Denies drug use Other Social History: Good social support, Frequent ED visitor, , Local resident 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 Additional Review of Systems Male: Denies Incontinence Physical Exam Initial Vital Signs Vital Signs (First) Date Time Temp Pulse Resp B/P Pulse Ox O2 Delivery O2 Flow Rate FiO2 06/22/17 18:58 36.9 86 16 119/84 95 Room Air Initial VS: Reviewed Head / Eyes: Atraumatic, Normocephalic Skin: Warm, Dry, No cyanosis Psychiatric: Mood/affect normal, Behavior normal, Normal thought content General/Constitutional: Awake, Alert Respiratory / Chest: Atraumatic, Breath sounds NL, Breath sounds = bilat, No respiratory distress Cardiovascular: Heart rate NL, Regular rhythm Very distant heart sounds No lower leg edema Lower Extremity / Pelvis / MS: Full range of motion, Neurologic intact, Vascular intact Neurologic: Oriented X3, Speech NL, CN II - XII intact Neck: Supple, Full range of motion Neck / Muscle Tenderness: Positive: Midline tenderness mid Abdomen: Soft, Non-tender Interpretation & Diagnostics Lab Results Interpretation Result Diagram: 06/22/17 1905 06/22/17 1857 Test 06/22/17 18:57 06/22/17 19:05 Sodium Level 133mEq/L (134-144) Potassium Level 3.8mEq/L (3.5-5.2) Chloride Level 93mEq/L (97-108) Carbon Dioxide Level 17mmol/L (18-29) Blood Urea Nitrogen 18mg/dL (6-24) Creatinine 1.07mg/dL (0.76-1.27) Estimat Glomerular Filtration Rate 78mL/min (>59) Glucose Level 389mg/dL (60-99) Calcium Level 9.4mg/dL (8.5-10.1) Magnesium Level 2.1mg/dL (1.6-2.6) Total Bilirubin 0.3mg/dL (0.0-1.2) Aspartate Amino Transf (AST/SGOT) 13U/L (0-50) Alanine Aminotransferase (ALT/SGPT) 13U/L (0-44) Alkaline Phosphatase 140U/L (25-150) Troponin T < 0.010ug/L (0.0-0.011) Total Protein 7.9g/dL (6.4-8.4) Albumin 4.0g/dL (3.4-5.0) White Blood Count 10.6th/mm3 (3.8-10.1) Red Blood Count 4.98mil/mm3 (4.40-5.80) Hemoglobin 14.8g/dL (13.8-17.2) Hematocrit 42.2% (41.0-50.0) Mean Corpuscular Volume 85fL (81-100) Mean Corpuscular Hemoglobin 29.7pg (27.0-35.0) Mean Corpuscular Hemoglobin Concent 35.1% (32.0-37.0) Red Cell Distribution Width 12.6% (12.3-15.4) Platelet Count 251bil/L (150-400) Neutrophils (%) (Auto) 63% (40-74) Lymphocytes (%) (Auto) 29% (14-46) Monocytes (%) (Auto) 7% (4-12) Eosinophils (%) (Auto) 1% (0-5) Basophils (%) (Auto) 0% (0-3) ECG Interpretation ECG Interpretation: Sinus rhythm, rate 84 Time: 18:55 Interpreted by: ED physician X-Ray Chest Interpretation Chest Xray Interpretation: IMPRESSION: Right basilar atelectasis or early infiltrate. Otherwise, no radiographic evidence of acute cardiopulmonary pathology. Dictated by: Dereck Cifuentes M.D. on 06/22/2017 at 19:22 Approved by: Dereck Cifuentes M.D. on 06/22/2017 at 19:23 View: Portable, 1 view Interpretation / Wet Read by: Interpret - Radiologist CT Head Interpretation IMPRESSION: No CT evidence of acute intracranial pathology. Dictated by: Dereck Cifuentes M.D. on 06/22/2017 at 19:59 Approved by: Dereck Cifuentes M.D. on 06/22/2017 at 20:02 Study: Head CT no contrast Interpretation / Wet Read by: Interpret - Radiologist CT C-Spine Interpretation IMPRESSION: 1. No CT evidence of acute cervical spine pathology. 2. Extensive ligamentous calcification with relatively mild intervertebral body disc height loss most consistent with diffuse idiopathic skeletal hypertrophy. Dictated by: Dereck Cifuentes M.D. on 06/22/2017 at 19:46 Approved by: Dereck Cifuentes M.D. on 06/22/2017 at 19:50 Study type: CT no contrast Interpretation / Wet Read by: Interpret - Radiologist Re-Eval/Medical Decision Source of Hx: Old records Re-Evaluation/Progress : Time of Eval: 20:46 Patient Status: Condition improved Re-Evaluation/Progress Note: Patient rechecked. Discussed plan for discharge. Patient understands and agrees with plan. F/U instructions and RTER warnings given. All questions addressed at this time. Counseled Regarding: Diagnosis, Lab results, Need for follow-up, When/why to return to ED Discharge & Departure Impression: Primary Impression: Syncope Syncope type: unspecified Qualified Code: R55 - Syncope and collapse Additional Impressions: Closed head injury Encounter type: initial encounter Qualified Code: S09.90XA - Unspecified injury of head, initial encounter Neck contusion Dehydration Disposition: Home Discharge Condition All VS Reviewed: Yes Condition: Stable Patient Instructions: Syncope (ED) Additional Instructions: No dangerous cause for your fainting event today was discovered. No dangerous injuries were discovered. Testing was reassuring. I think analgesics and rest should be sufficient to help get you back to normal. Follow-up right away for repeat fainting event or severe chest pain. I recommend follow up with your provider in the coming days to review medications to make sure that this can be prevented in the future. I suspect you need to hydrate better during the day especially on warm days. Referrals: Santiago Funez MD (PCP) Scribe Attestation Portions of this note were transcribed by Tabatha Raza. I, Dr. Salazar, personally performed the history, physical exam and medical decision-making; I reviewed and confirmed the accuracy of the information in the transcribed note. copies to: Santiago Funez MD, Kirk H MD Jun 22, 2017 19:09 Tabatha Raza Jun 22, 2017 19:31
[2017-06-22] MEDS ORDERED: HYDROcodone-APAP 10-325 mg PO ONE (19:10)
[2017-06-22] MEDS ORDERED: 0.9% Sodium Chloride 1,000 ML IV ONE (19:10)
[2017-06-22] MEDS ORDERED: MetoCLOpramide 5 mg/mL 2 mL Inj IVPUSH ONE (19:10)
[2017-06-22 19:15] LABS: Mean Corpuscular Hemoglobin 29.7 pg (27.0-35.0); Mean Corpuscular Volume 85 fL (81-100); NEUTROPHILS % (AUTO) 63 % (40-74); Platelet Count 251 bil/L (150-400)
[2017-06-22 19:16] LABS: BASOPHILS % (AUTO) 0 % (0-3); EOSINOPHILS % (AUTO) 1 % (0-5); MONOCYTES % (AUTO) 7 % (4-12)
--- NOTE | 2017-06-22 19:25 | DRSVH ---
PROCEDURE: X-RAY CHEST ONE VIEW, PORTABLE ([id number]) INDICATIONS: Chest pain TECHNIQUE: One view of the chest was acquired. COMPARISON: None. FINDINGS: Surgical changes and devices: None. Lungs and pleura: No pleural effusions or pneumothorax. Right basilar atelectasis or early infiltrat e. Otherwise the lungs are clear. Mediastinum: Mediastinal contours appear normal. Heart size is normal. Bones and chest wall: No suspicious bony lesions. Overlying soft tissues appear unremarkable. IMPRESSION: Right basilar atelectasis or early infiltrate. Otherwise, no radiographic evidence of a cute cardiopulmonary pathology. Dictated by: Dereck Cifuentes M.D. on 06/22/2017 at 19:22 Approved by: Dereck Cifuentes M.D. on 06/22/2017 at 19:23
[2017-06-22 19:44] LABS: TROPONIN T < 0.010 ug/L (0.0-0.011)
--- NOTE | 2017-06-22 19:52 | DRSVH ---
PROCEDURE: CT CERVICAL SPINE WITHOUT CONTRAST ([id number]) INDICATIONS: trauma TECHNIQUE: Noncontrast 3 mm thick sections acquired from the skull base to the T4 level. Sagittal and coronal r eformats were then constructed. For radiation dose reduction, the following was used: automated exp osure control, adjustment of mA and/or kV according to patient size. COMPARISON: None. FINDINGS: Image quality: Excellent. Bones: No fractures or dislocations. Visualized superior ribs are intact. Extensive calcification of the anterior and posterior longitudinal ligaments with much lesser multilevel disc height loss. Soft tissues: Prevertebral soft tissues are normal in thickness. No paravertebral hematomas. No ap ical pneumothoraces. IMPRESSION: 1. No CT evidence of acute cervical spine pathology. 2. Extensive ligamentous calcification with relatively mild intervertebral body disc height loss most consistent with diffuse idiopathic skeletal hypertrophy. Dictated by: Dereck Cifuentes M.D. on 06/22/2017 at 19:46 Approved by: Dereck Cifuentes M.D. on 06/22/2017 at 19:50
[2017-06-22 19:53] LABS: Magnesium 2.1 mg/dL (1.6-2.6)
--- NOTE | 2017-06-22 20:03 | DRSVH ---
PROCEDURE: CT BRAIN WITHOUT CONTRAST ([id number]) INDICATIONS: trauma TECHNIQUE: Noncontrast 4.5 mm thick angled axial sections acquired from the foramen magnum to the vertex, with c oronal reformats. COMPARISON: None. FINDINGS: Image quality: Excellent. CSF spaces: Basal cisterns are patent. No extra-axial fluid collections. Ventricles are normal in size and shape. Brain: No midline shift. No intracranial masses or hemorrhage. Haider-white matter interface is norm al. Skull and face: Calvarium and visualized facial bones are intact, without suspicious lesions. Sinuses: Visualized sinuses and mastoids are clear. IMPRESSION: No CT evidence of acute intracranial pathology. Dictated by: Dereck Cifuentes M.D. on 06/22/2017 at 19:59 Approved by: Dereck Cifuentes M.D. on 06/22/2017 at 20:02
[2017-06-22 21:15] VITALS: BP 111/48; PULSE 77; RESP 16; O2SAT 96
== END 2017-06-22 21:16 | disposition home or self-care (01) ==
LOC: SED 18:47 → EDBD 18:47 → EDUNIT# 18:47 → SED 21:16
DX: R55 Syncope and collapse (principal); S09.8XXA Other specified injuries of head, initial encounter; S10.93XA Contusion of unspecified part of neck, initial encounter; W19.XXXA Unspecified fall, initial encounter; E86.0 Dehydration; Y93.89 Activity, other specified; Y92.9 Unspecified place or not applicable; Y99.8 Other external cause status; R07.9 Chest pain, unspecified; I25.10 Atherosclerotic heart disease of native coronary artery without angina pectoris; I11.0 Hypertensive heart disease with heart failure; I25.2 Old myocardial infarction; E11.40 Type 2 diabetes mellitus with diabetic neuropathy, unspecified; J44.9 Chronic obstructive pulmonary disease, unspecified; F17.200 Nicotine dependence, unspecified, uncomplicated; I50.9 Heart failure, unspecified; Z95.5 Presence of coronary angioplasty implant and graft; Z86.718 Personal history of other venous thrombosis and embolism; Z79.01 Long term (current) use of anticoagulants; Z87.442 Personal history of urinary calculi; Z91.030 Bee allergy status; Z88.0 Allergy status to penicillin; Z88.8 Allergy status to other drugs, medicaments and biological substances; Z88.5 Allergy status to narcotic agent; Z79.82 Long term (current) use of aspirin; Z79.4 Long term (current) use of insulin; Z86.73 Personal history of transient ischemic attack (TIA), and cerebral infarction without residual deficits
CPT/HCPCS: 36415; 70450; 71010; 72125; 80053; 83735; 84484; 85025; 93005; 96361; 96374; 99285; J2765; J7030

== ENCOUNTER 2017-07-04 20:42 | Emergency (ER) | payer OTHER ==
[~2017-07-04] VITALS: Ht 172.7 cm; Wt 109.1 kg
[2017-07-04 20:45] VITALS: BP 151/88; PULSE 61; RESP 17; O2SAT 95
[2017-07-04] MEDS ORDERED: Ondansetron 2 mg/mL 2 mL Inj IVPUSH PRN (21:55)
[2017-07-04 22:30] LABS: BASOPHILS % (AUTO) 0.4 % (0-3); EOSINOPHILS % (AUTO) 1.3 % (0-5); MONOCYTES % (AUTO) 7.56 % (4-12); Mean Corpuscular Hemoglobin 29.5 pg (27.0-35.0); Mean Corpuscular Volume 87 fL (81-100); NEUTROPHILS % (AUTO) 65.7 % (40-74); Platelet Count 204 bil/L (150-400)
[2017-07-04 22:43] LABS: INR 0.92 ratio
[2017-07-04 22:55] LABS: APPEARANCE,URINE CLEAR (CLEAR,HAZY); COLOR,URINE YELLOW (YELLOW); OCCULT BLOOD,URINE LARGE (NEGATIVE); UROBILINOGEN,URINE NORMAL (NORMAL)
--- NOTE | 2017-07-04 23:14 | ED.REPORT ---
HPI-General Illness Date of Service Jul 04, 2017 ED Provider: Zackary Domínguez MD Pt is a 47 year old male with a hx of CAD, CHF, HTN, COPD, stroke, unstable angina, DM, DVT and kidney stones on Warfarin presenting to the ED complaining of 8/10 severe right flank pain radiating to the RLQ onset last night around 2300. He states that he was recently diagnosed with a kidney stone and thinks that it is passing. Associated symptoms include intermittent hematuria, dysuria , decreased urinary volume, testicular tenderness. Denies fever, chills, nausea , vomiting, diarrhea, SOB, wheezing, new chest pain, itching, rash or throat swelling. Nursing Notes Stated Complaint: POSSIBLE KIDNEY STONE Chief Complaint: Male Abdominal Pain Nursing Notes Reviewed: Yes Allergies: Coded Allergies: Honey Bee (Verified Allergy, Severe, anaphylaxis, 07/04/17) Penicillins (Verified Allergy, Severe, SWELLING, HIVES, ITCHING, 07/04/17) TAPE (Verified Allergy, Mild, blisters, 07/04/17) levetiracetam (Verified Allergy, Unknown, 07/04/17) "Sleep all day long" hydromorphone (Verified Adverse Reaction, Intermediate, HALLUCINATIONS, "HIGH", 07/04/17) sumatriptan (Verified Adverse Reaction, Intermediate, CONVULSIONS, SHAKES , 07/04/17) Scheduled Allopurinol (Allopurinol) 300 Mg Tablet 300 MG PO HS Aspirin (Aspirin) 81 Mg Tablet 81 MG PO QAM Atorvastatin (Lipitor) 80 Mg Tablet 80 MG PO HS Clopidogrel (Clopidogrel) 75 Mg Tablet 75 MG PO QAM Doxazosin (Cardura) 4 Mg Tablet 8 MG PO QAM Finasteride (Finasteride) 5 Mg Tablet 5 MG PO QAM Fluoxetine (Fluoxetine) 40 Mg Capsule 40 MG PO QAM Furosemide (Furosemide) 40 Mg Tablet 40 MG PO QAM Gabapentin (Gabapentin) 600 Mg Tablet 600 MG PO BID Insulin Glargine (Lantus U100 Insulin Vial) 100 Unit/Ml Vial 80 UNIT SUBQ BID Insulin Regular, Human (HUMulin-R U100 Insulin Vial) 100 Unit/1 Ml Vial 40 UNIT SUBQ BIDWM BREAKFAST AND DINNER Insulin Regular, Human (HUMulin-R U100 Insulin Vial) 100 Unit/1 Ml Vial 2-20 UNIT SUBQ ACHS SLIDING SCALE Isosorbide MN ER (Isosorbide MN ER) 60 Mg Tab.er.24h 60 MG PO QAM Lisinopril (Lisinopril) 2.5 Mg Tablet 2.5 MG PO QAM Metoprolol Succinate ER (Metoprolol Succinate ER) 25 Mg Tab.er.24h 25 MG PO QAM Ondansetron ODT (Ondansetron ODT) 8 Mg Tab.rapdis 8 MG PO QID Oxycodone HCl/Acetaminophen (Endocet 10-325 mg Tablet) 1 Each Tablet 2 EACH PO QID Pantoprazole DR (Pantoprazole DR) 40 Mg Tablet.dr 40 MG PO QAM Potassium Chloride ER (Potassium Chloride ER) 20 Meq Tablet.er 20 MEQ PO QAM TAKE WITH FOOD Tamsulosin ER (Tamsulosin ER) 0.4 Mg Cap.er.24h 0.4 MG PO DAILY Scheduled PRN Acetaminophen (Acetaminophen) 500 Mg Tablet 500-1,000 MG PO Q6H PRN PRN For Pain Albuterol HFA (Proair HFA) 8.5 Gm Hfa.aer.ad 2 PUFFS INHALATION QID PRN PRN For Shortness of Breath Ibuprofen (Ibuprofen) 200 Mg Capsule 800 MG PO DIRECTED PRN PRN For Pain Naproxen (Naproxen) 375 Mg Tablet 375 MG PO BID PRN PRN For Pain Nitroglycerin SL (Nitroglycerin SL) 0.4 Mg Tab.subl 0.4 MG SL Q5MIN PRN PRN For Chest Pain Oxycodone (Roxicodone) 5 Mg Tablet 5 MG PO QID PRN PRN For Pain can add 5mg to your usual 10mg dose of oxycodone to equal 15mg every 6 hours for this acute pain oxyCODONE-Acetaminophen 5-325 mg (oxyCODONE-Acetaminophen 5-325 mg) 1 Each Tablet 1-2 TAB PO Q6H PRN PRN For Pain General Time Seen by MD: 21:30 Chief Complaint Other (Right flank pain) Hx Obtained From: Patient Arrived By: Walk-in Sudden in Onset?: No Onset Occurred: Yesterday Symptom Duration: Since onset Quality: Painful Severity: Current: Pain level 8 out of 10 Severity: Maximum: Severe Recent Healthcare: Recent doctor visit, Recent hospitalization Similar Sx Previous: Yes Past Medical History Past Medical History Notes: Patient states has had "nine stents" placed at [facility] For CP 08/01/2016, 08/04/16, and 08/26/16 Multiple ED visits for CP, admitted for chest pain 11/21/2016 and 04/20/2017 with hospitalist diagnosis of narcotic seeking behavior Last admit 05/17/17 - Unstable angina Past Medical History Unstable angina CAD - multiple stents, cardiac caths 02/14, 03/12, 04/11, ad 04/17 w/stent placed to proximal LAD overlapping prior stent and "plavix non-responder" Syncope Type two diabetes with neuropathy Chronic back and leg pain Lower extremity DVT "years ago" per patient, details unclear History of migraines BPH Kidney Stones On Warfarin and Plavix Seizure Spinal meningitis [place] 2014 Concern for TIA October 2016, MRI/MRA negative Reports: COPD, Congestive heart failure, Hypertension, Stroke Reports: Heroin use Past Surgical History Shoulder surgery (joint replacement) Left knee surgery Ganglion cyst in right hand Cardiac stents ("x9" - at [facility]) Reports: Cholecystectomy Family History Both of the patient's parents are still alive Smoking History Current Every Day Smoker Social History Alcohol Use: Denies alcohol use Drug Use: Denies drug use Other Social History: Good social support, Frequent ED visitor, , Local resident 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 Physical Exam Nursing note and vitals reviewed. Constitutional: Well-developed, well-nourished. Not diaphoretic. Head: Normocephalic and atraumatic. Mouth/Throat: Oropharynx is clear and moist. No oropharyngeal exudate. Eyes: EOM are normal. Pupils are equal, round, and reactive to light. Neck: Supple, no tracheal deviation. Cardiovascular: Normal rate, regular rhythm. Equal and intact distal pulses throughout. Pulmonary/Chest: Effort normal and breath sounds normal. No respiratory distress. Abdominal: Soft. No distension. Right sided abdominal tenderness without rebound or guarding. Bowel sounds present. Musculoskeletal: Range of motion grossly intact, moving all extremities. No edema or tenderness appreciated. Neurological: AOx3. Grossly nonfocal exam. Strength and sensation intact and equal to bilateral upper and lower extremities. Skin: Warm and dry, no rashes or pallor appreciated. Psychiatric: Appropriate mood and affect. Behavior appears normal. Vital Signs Vital Signs Date Time Temp Pulse Resp B/P Pulse Ox O2 Delivery O2 Flow Rate FiO2 07/05/17 00:11 36.8 66 16 147/89 97 Room Air 07/04/17 20:45 36.8 61 17 151/88 95 Room Air Initial VS: Reviewed Interpretation & Diagnostics Lab Results Interpretation Result Diagram: 07/04/17221907/04/172219 Test 07/04/17 22:20 07/04/17 22:38 White Blood Count 7.5th/mm3 (3.8-10.1) Red Blood Count 4.47mil/mm3 (4.40-5.80) Hemoglobin 13.2g/dL (13.8-17.2) Hematocrit 38.7% (41.0-50.0) Mean Corpuscular Volume 87fL (81-100) Mean Corpuscular Hemoglobin 29.5pg (27.0-35.0) Mean Corpuscular Hemoglobin Concent 34.1% (32.0-37.0) Red Cell Distribution Width 12.8% (12.3-15.4) Platelet Count 204bil/L (150-400) Neutrophils (%) (Auto) 65.7% (40-74) Lymphocytes (%) (Auto) 25% (14-46) Monocytes (%) (Auto) 7.56% (4-12) Eosinophils (%) (Auto) 1.3% (0-5) Basophils (%) (Auto) 0.4% (0-3) Prothrombin Time 9.8sec (8.1-12.5) Prothromb Time International Ratio 0.92ratio Sodium Level 132mEq/L (134-144) Potassium Level 4.0mEq/L (3.5-5.2) Chloride Level 94mEq/L (97-108) Carbon Dioxide Level 20mmol/L (18-29) Blood Urea Nitrogen 13mg/dL (6-24) Creatinine 0.90mg/dL (0.76-1.27) Estimat Glomerular Filtration Rate 95mL/min (>59) Glucose Level 554mg/dL (60-99) Lactic Acid Level 2.7mmol/L (0.4-2.0) Calcium Level 8.8mg/dL (8.5-10.1) Magnesium Level 2.0mg/dL (1.6-2.6) Total Bilirubin 0.3mg/dL (0.0-1.2) Aspartate Amino Transf (AST/SGOT) 11U/L (0-50) Alanine Aminotransferase (ALT/SGPT) 11U/L (0-44) Alkaline Phosphatase 133U/L (25-150) Total Protein 7.2g/dL (6.4-8.4) Albumin 3.6g/dL (3.4-5.0) Lipase 7U/L (13-60) Urine Color Yellow (YELLOW) Urine Appearance Clear (CLEAR,HAZY) Urine pH 6.0 (5.0-8.0) Urine Specific [place] <1.005 (1.003-1.035) Urine Protein Negativemg/dL (NEG,TRACE) Urine Glucose (UA) >1000mg/dL (NEGATIVE) Urine Ketones Negativemg/dL (NEGATIVE) Urine Occult Blood Large (NEGATIVE) Urine Nitrite Negative (NEGATIVE) Urine Bilirubin Negative (NEGATIVE) Urine Urobilinogen Normalmg/dL (NORMAL) Urine Leukocyte Esterase Negative (NEGATIVE) Urine RBC >50/hpf (0-2) Urine WBC 0-5/hpf (0-5) Urine Epithelial Cells Few/hpf (NONE-MOD) Urine Crystals None seen (NONE SEEN) Urine Bacteria Few/hpf (NONE-FEW) Urine Hyaline Casts None/lpf (NONE) Urine Granular Casts None seen (NONE SEEN) Urine Waxy Casts None seen (NONE SEEN) Urine Red Blood Cell Casts None seen (NONE SEEN) Urine White Blood Cell Casts None seen (NONE SEEN) Urine Mucus None seen (None Seen) Urine Trichomonas None seen (NONE SEEN) Urine Yeast None (NONE SEEN) Urinalysis Comment None Urine Culture Reflexed Not indicated CT Abd / Pelvis Interpretation CONCLUSION: 3 mm obstructing stone at the right ureterovesicular junction with associated moderate right hydronephrosis. This report was transmitted to the emergency room at 07/04/2017 - 10:14:09 PM PDT. Interpretation / Wet Read by: Interpret - Radiologist Re-Eval/Medical Decision Med Decision/Clinical Course 47-year-old male with a complex past medical history including coronary disease and recurrent kidney stones presenting to the ED for evaluation of right flank pain. No chest pain or dyspnea at this time whatsoever. Symptoms feel consistent with previous kidney stones. No signs of an infected stone on UA. Patient given Zofran, morphine with some improvement in symptoms here in the ED. CT scan demonstrates a 3 mm stone at the right UVJ with moderate right hydronephrosis. CBC grossly within normal limits, CMP notable for a glucose of 554, lactic acid 2.7, sodium of 132, urinalysis with a large amount of blood present. Upon reassessment, patient endorses improvement in symptoms. No reason for further workup here in the emergency department today and he has very close outpatient follow-up or any scheduled. He does have a mild elevation in his lactic acid, however he is afebrile, nontoxic-appearing, and symptoms are described as exactly similar to previous. Given fluids here. I suspect the stone will likely pass. He has a Flomax prescription and pain medicine are written for. Plan discharge home with very careful return precautions, close PCP follow-up. Patient agreeable to the plan as stated, no further questions. Time of Eval: 23:50 Patient Status: Condition improved Re-Evaluation/Progress Note: Discussed plan for discharge. Pt understands and agrees with plan. Counseled Regarding: Diagnosis, Lab results, Need for follow-up, When/why to return to ED Discharge & Departure Primary Impression: Kidney stone Disposition: Home Discharge Condition All VS Reviewed: Yes Condition: Improved Patient Instructions: Kidney Stones (ED) Additional Instructions: Thank you for allowing us to be a part of your care in the ED today. There was a 3 mm stone visualized right in the junction between your bladder and ureter. This will likely pass on its own. There was nothing concerning to do with your heart today. Please schedule a follow up appointment with your primary care physician tomorrow for a recheck. Please return to the emergency department for any new or worsening symptoms including any nausea, vomiting, abdominal pain, shortness of breath, chest pain , one sided weakness/numbness, fevers, or chills, or if there's anything else of concern to you. Referrals: Santiago Funez MD (PCP) Alizaibrudolph Attestation Portions of this note were transcribed by Nadine Strange. I, Dr. Domínguez personally performed the history, physical exam and medical decision-making; I reviewed and confirmed the accuracy of the information in the transcribed note. Signed by: Cindy Moreland, 07/04/2017. copies to: Santiago Funez MD, William B MD Jul 04, 2017 23:14 NADINE STRANGE Jul 04, 2017 23:21
[2017-07-04] MEDS ORDERED: Insulin Human REGular 300 Unit/3 mL Inj SUBQ ONE (23:20)
[2017-07-04] MEDS ORDERED: Insulin Human REGular-Omnicell 100 Unit/mL SUBQ ONE (23:21)
[2017-07-05 00:11] VITALS: BP 147/89; PULSE 66; RESP 16; O2SAT 97
--- NOTE | 2017-07-05 01:26 | ABG ---
DateTimeAnalyzed 01:19:00 -_ pH ____7.411 - 7.320 7.420 pCO2 ___39.4__ -mmHg 41.0 51.0 pO2 ___76.3__ -mmHg 24.0 40.0 HCO3- ___24.5__ -mmol/L ABE ____0.5__ -mmol/L tHb ___13.3__ -g/dL 12.0 18.0 O2Hb ___89.7__ -% COHb ____3.7__ -% 0.0 1.5 MetHb ____1.6__ -% 0.4 1.5 sO2 ___94.7__ -% FIO2 ___21.0__ -% Drawn By MK - Date/Time Notified____ 01:25:00 -_ B 757 -mmHg tO2 ___16.8__ -Vol% Anuj test N/A -
[2017-07-05] MEDS ORDERED: Insulin Human REGular-Omnicell 100 Unit/mL SUBQ ONE (01:35)
[2017-07-05 02:22] VITALS: BP 144/84; PULSE 62; RESP 16; O2SAT 97
--- NOTE | 2017-07-05 07:57 | DRSVH ---
PROCEDURE: CT KUB ([id number]) INDICATIONS: 47 year-old male with right flank pain, and history of kidney stones. TECHNIQUE: Noncontrast 5 mm thick sections acquired from the diaphragms to the symphysis. 5 mm thick coronal an d sagittal reformats were then performed. For radiation dose reduction, the following was used: aut omated exposure control, adjustment of mA and/or kV according to patient size. COMPARISON: [facility], CT, CT KUB, 06/20/2017, 22:03. [facility], CT, CT KU B, 06/15/2017, 10:19. [facility], CT, CT KUB, 06/05/2017, 15:48. FINDINGS: Preliminary interpretation rendered by [facility]. Image quality: Excellent. Lung bases: Lung bases are clear. Heart size is normal. Urinary system: Both kidneys are normal in size. 3 mm nonobstructing right renal stone is again note d. There is mild right hydroureteronephrosis and minimal perinephric inflammatory fat stranding, seco ndary 12 4 mm stone at the right ureterovesical junction on axial image 71. No left renal stones or h ydronephrosis. Bladder wall thickness is normal; no calcified bladder stones. Other solid organs: Liver and spleen are normal in size. Gallbladder is surgically absent. Pancrea s is normal in contours, with segmental fatty atrophy of the pancreatic head and uncinate process. N o adrenal nodules. Peritoneum and bowel: Unenhanced bowel loops demonstrate normal wall thickness and caliber. No free fluid or air. Nodes and vessels: No retroperitoneal or mesenteric adenopathy by size criteria. Aorta and inferior vena cava are normal in caliber, with mild aortoiliac atherosclerosis. Abdominal wall: No ventral hernias. Pelvis: No free pelvic fluid. No inguinal hernias or adenopathy. Bones: No suspicious bony lesions. No vertebral body compression fractures. There is lower thoraci c spine diffuse idiopathic skeletal hyperostosis. IMPRESSION: 1. One of the 2 previously noted right renal stones is now situated at the right ureterovesical junct ion, causing mild right hydroureteronephrosis. 2. The other 3 mm right renal stone remains nonobstructing at this time. [facility]. Dictated by: Sim Glass M.D. on 07/05/2017 at 7:46 Approved by: Sim Glass M.D. on 07/05/2017 at 7:55
[2017-07-06] MEDS ORDERED: ONDA-54 PO (01:00)
[2017-07-06] MEDS ORDERED: OXYC10TA8 PO (01:00)
[2017-07-06] MEDS ORDERED: METO-386 PO (11:54)
[2017-07-06] MEDS ORDERED: TRAM-14 PO (12:02)
== END 2017-07-05 02:23 | disposition home or self-care (01) ==
LOC: SED 20:42
DX: N20.0 Calculus of kidney (principal); N50.89 Other specified disorders of the male genital organs; I11.9 Hypertensive heart disease without heart failure; E11.59 Type 2 diabetes mellitus with other circulatory complications; I50.9 Heart failure, unspecified; I25.10 Atherosclerotic heart disease of native coronary artery without angina pectoris; J44.9 Chronic obstructive pulmonary disease, unspecified; G43.909 Migraine, unspecified, not intractable, without status migrainosus; E11.40 Type 2 diabetes mellitus with diabetic neuropathy, unspecified; F17.200 Nicotine dependence, unspecified, uncomplicated; Z87.442 Personal history of urinary calculi; Z86.73 Personal history of transient ischemic attack (TIA), and cerebral infarction without residual deficits; Z90.49 Acquired absence of other specified parts of digestive tract; Z95.5 Presence of coronary angioplasty implant and graft; Z98.890 Other specified postprocedural states; Z79.01 Long term (current) use of anticoagulants; Z79.4 Long term (current) use of insulin; Z79.82 Long term (current) use of aspirin; Z88.0 Allergy status to penicillin; Z88.5 Allergy status to narcotic agent; Z88.8 Allergy status to other drugs, medicaments and biological substances; Z91.030 Bee allergy status; Z91.048 Other nonmedicinal substance allergy status
CPT/HCPCS: 36415; 74176; 80053; 81000; 82948; 83605; 83690; 83735; 85025; 85610; 96372; 96374; 96375; 96376; 99285; J2270; J2405

== ENCOUNTER 2017-07-05 18:11 | Observation (INO) | payer MEDICAID, OTHER ==
[2017-07-05] VITALS (7 sets, daily range): BP systolic 94–121; BP diastolic 53–66; PULSE 63–82; RESP 12–18; O2SAT 94–98
[~2017-07-05] VITALS: Ht 172.7 cm; Wt 117.4 kg
[2017-07-05] MEDS ORDERED: 0.9% Sodium Chloride 1,000 ML IV ONE (18:30)
[2017-07-05] MEDS ORDERED: Ondansetron 2 mg/mL 2 mL Inj IVPUSH ONE (18:30)
--- NOTE | 2017-07-05 18:48 | DRSVH ---
PROCEDURE: X-RAY CHEST ONE VIEW, PORTABLE ([id number]) INDICATIONS: 47 year-old male with chest pain and numbness. TECHNIQUE: One view of the chest was acquired. COMPARISON: [facility], CR, XR CHEST 1VW (PORTABLE), 06/22/2017, 19:03. [facility], CR, XR CHEST 1VW (PORTABLE), 06/15/2017, 10:25. [facility], CR, XR CHEST 1VW (POR TABLE), 05/16/2017, 22:50. FINDINGS: Surgical changes and devices: None. Lungs and pleura: No pleural effusions or pneumothorax. Lungs are clear. Mediastinum: Mediastinal contours appear normal. Heart size is normal. Bones and chest wall: No suspicious bony lesions. Overlying soft tissues appear unremarkable. IMPRESSION: No acute cardiopulmonary disease. Dictated by: Sim Glass M.D. on 07/05/2017 at 18:46 Approved by: Sim Glass M.D. on 07/05/2017 at 18:47
[2017-07-05 19:02] LABS: BASOPHILS % (AUTO) 0.2 % (0-3); EOSINOPHILS % (AUTO) 1.2 % (0-5); MONOCYTES % (AUTO) 5.9 % (4-12); Mean Corpuscular Hemoglobin 29.6 pg (27.0-35.0); Mean Corpuscular Volume 86.8 fL (81-100); NEUTROPHILS % (AUTO) 72.6 % (40-74); Platelet Count 216 bil/L (150-400)
--- NOTE | 2017-07-05 19:40 | ED.REPORT ---
HPI-General Illness Date of Service Jul 05, 2017 ED Provider: Zackary Domínguez MD A 47 year old male with history of CAD s/p multiple cardiac stents, type II diabetes mellitus, CHF, stroke, RI, hypertension, recurrent kidney stones and frequent ED visits due to angina presents to the ED complaining of midsternal, 10/10 chest pain that began this afternoon. The patient presents today with identical symptoms to his previous anginal flares. The pain radiates to his right arm and is exacerbated by exertion. Patient was shopping at [employer] during symptom onset. Associated symptoms also include SOB, lightheadedness. The patient took 80 mg of Lantus this morning. Most recent ED visit was 07/04 for right flank pain and CT work-up revealed a 3 mm stone visualized right in the junction between your bladder and ureter with associated moderate right hydronephrosis.He states that his stone has passed. Patient denies any fever, chills, vomiting, abdominal pain, headache, nausea, vomiting, neck pain, dysuria , or diaphoresis. Nursing Notes Stated Complaint: SEVERE CHEST PAIN, NUMBNESS, SOB Chief Complaint: Chest Pain Nursing Notes Reviewed: Yes Allergies: Coded Allergies: Honey Bee (Verified Allergy, Severe, anaphylaxis, 07/04/17) Penicillins (Verified Allergy, Severe, SWELLING, HIVES, ITCHING, 07/04/17) TAPE (Verified Allergy, Mild, blisters, 07/04/17) levetiracetam (Verified Allergy, Unknown, 07/04/17) "Sleep all day long" hydromorphone (Verified Adverse Reaction, Intermediate, HALLUCINATIONS, "HIGH", 07/04/17) sumatriptan (Verified Adverse Reaction, Intermediate, CONVULSIONS, SHAKES , 07/04/17) Scheduled Allopurinol (Allopurinol) 300 Mg Tablet 300 MG PO HS Aspirin (Aspirin) 81 Mg Tablet 81 MG PO QAM Atorvastatin (Lipitor) 80 Mg Tablet 80 MG PO HS Clopidogrel (Clopidogrel) 75 Mg Tablet 75 MG PO QAM Doxazosin (Cardura) 4 Mg Tablet 8 MG PO QAM Finasteride (Finasteride) 5 Mg Tablet 5 MG PO QAM Fluoxetine (Fluoxetine) 40 Mg Capsule 40 MG PO QAM Furosemide (Furosemide) 40 Mg Tablet 40 MG PO QAM Gabapentin (Gabapentin) 600 Mg Tablet 600 MG PO BID Insulin Glargine (Lantus U100 Insulin Vial) 100 Unit/Ml Vial 80 UNIT SUBQ BID Insulin Regular, Human (HUMulin-R U100 Insulin Vial) 100 Unit/1 Ml Vial 40 UNIT SUBQ BIDWM BREAKFAST AND DINNER Insulin Regular, Human (HUMulin-R U100 Insulin Vial) 100 Unit/1 Ml Vial 2-20 UNIT SUBQ ACHS SLIDING SCALE Isosorbide MN ER (Isosorbide MN ER) 60 Mg Tab.er.24h 60 MG PO QAM Lisinopril (Lisinopril) 2.5 Mg Tablet 2.5 MG PO QAM Metoprolol Succinate ER (Metoprolol Succinate ER) 25 Mg Tab.er.24h 25 MG PO QAM Ondansetron (Ondansetron) 8 Mg Tablet 8 MG PO QID Pantoprazole DR (Pantoprazole DR) 40 Mg Tablet.dr 40 MG PO QAM Potassium Chloride ER (Potassium Chloride ER) 20 Meq Tablet.er 20 MEQ PO QAM TAKE WITH FOOD Tamsulosin ER (Tamsulosin ER) 0.4 Mg Cap.er.24h 0.4 MG PO DAILY Scheduled PRN Albuterol HFA (Proair HFA) 8.5 Gm Hfa.aer.ad 2 PUFFS INHALATION QID PRN PRN For Shortness of Breath Ibuprofen (Ibuprofen) 200 Mg Capsule 800 MG PO DIRECTED PRN PRN For Pain Naproxen (Naproxen) 375 Mg Tablet 375 MG PO BID PRN PRN For Pain Nitroglycerin SL (Nitroglycerin SL) 0.4 Mg Tab.subl 0.4 MG SL Q5MIN PRN PRN For Chest Pain oxyCODONE (oxyCODONE) 10 Mg Tablet 10 MG PO Q4H PRN PRN For Pain General Time Seen by MD: 18:24 Chief Complaint Chest pain Hx Obtained From: Patient Arrived By: Walk-in Sudden in Onset?: No Onset Occurred: 1 - 4 hours ago Symptom Duration: Since onset Location: : Chest Quality: Aching, Painful Radiation: : Arm right Severity: Current: Mild Severity: Maximum: Pain level 10 out of 10 Associated with: Reports: Chest pain, Numb extremities, Shortness of breath Pertinent Negative: Pt denies other symptoms Recent Healthcare: Recent doctor visit, Recent hospitalization Similar Sx Previous: Yes Past Medical History Past Medical History 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[place], [place] Patient states has had "nine stents" placed at [facility] Left AMA For CP 08/01/2016, 08/04/16, and 08/26/16 Multiple ED visits for CP, admitted for chest pain 11/21/2016 and 04/20/2017 with hospitalist diagnosis of narcotic seeking behavior Last admit 05/17/17 - Unstable angina Past Medical History Unstable angina CAD - multiple stents, cardiac caths 02/14, 03/12, 04/11, ad 04/17 w/stent placed to proximal LAD overlapping prior stent and "plavix non-responder" Syncope Type two diabetes with neuropathy Chronic back and leg pain Lower extremity DVT "years ago" per patient, details unclear History of migraines BPH Kidney Stones On Warfarin and Plavix Seizure Spinal meningitis RI 2014 Concern for TIA October 2016, MRI/MRA negative Reports: COPD, Congestive heart failure, Hypertension, Stroke Reports: Heroin use Past Surgical History Shoulder surgery (joint replacement) Left knee surgery Ganglion cyst in right hand Cardiac stents ("x9" - at [facility]) Reports: Cholecystectomy Family History Both of the patient's parents are still alive Smoking History Current Every Day Smoker Social History Alcohol Use: Denies alcohol use Drug Use: Denies drug use Other Social History: Good social support, Frequent ED visitor, , Local resident 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 Ambulatory Status Independent Review of Systems Full Review of Systems Constitutional: Denies: Chills, Fever Eyes: Denies: Blurred bilateral Ears / Nose / Throat: Denies: Sore throat Respiratory: Reports: Shortness of breath Cardiovascular: Reports: Chest pain GI: Denies: Abdominal pain, Nausea, Vomiting Male: Denies Dysuria Musculoskeletal: Denies: Neck pain Hematologic: Denies Bruising Endocrine: Denies: Polyuria Skin: Denies Diaphoresis, Denies Rash Allergy / Immune: Denies: Itching Neurologic: Reports: Lightheaded, Denies: Confusion, Headache Psychiatric: Denies: Change mental status Complete sys rev & neg: except as marked. Physical Exam Nursing note and vitals reviewed. Constitutional: Well-developed, well-nourished. Not diaphoretic. Head: Normocephalic and atraumatic. Mouth/Throat: Oropharynx is clear and moist. No oropharyngeal exudate. Eyes: EOM are normal. Pupils are equal, round, and reactive to light. Neck: Supple, no tracheal deviation. Cardiovascular: Normal rate, regular rhythm. Equal and intact distal pulses throughout. Pulmonary/Chest: Effort normal and breath sounds normal. No respiratory distress. Abdominal: Soft. No distension. There is no tenderness, rebound, or guarding. Musculoskeletal: Range of motion grossly intact, moving all extremities. No edema or tenderness appreciated. Neurological: AOx3. Grossly nonfocal exam. Strength and sensation intact and equal to bilateral upper and lower extremities. Skin: Warm and dry, no rashes or pallor appreciated. Psychiatric: Appropriate mood and affect. Behavior appears normal. Vital Signs Vital Signs Date Time Temp Pulse Resp B/P Pulse Ox O2 Delivery O2 Flow Rate FiO2 07/05/17 21:42 67 17 109/53 98 Room Air 07/05/17 20:58 77 18 109/58 97 Room Air 07/05/17 20:32 63 18 107/66 98 Room Air 07/05/17 19:49 77 12 94/61 94 Room Air 07/05/17 18:33 36.6 82 17 121/61 96 Nasal Cannula 2 Initial VS: Reviewed Interpretation & Diagnostics Lab Results Interpretation Result Diagram: 07/05/17 1825 07/05/17 1825 Test 07/05/17 18:25 07/05/17 19:40 07/05/17 21:10 White Blood Count 10.0th/mm3 (3.8-10.1) Red Blood Count 4.70mil/mm3 (4.40-5.80) Hemoglobin 13.9g/dL (13.8-17.2) Hematocrit 40.8% (41.0-50.0) Mean Corpuscular Volume 86.8fL (81-100) Mean Corpuscular Hemoglobin 29.6pg (27.0-35.0) Mean Corpuscular Hemoglobin Concent 34.1% (32.0-37.0) Red Cell Distribution Width 13.0% (12.3-15.4) Platelet Count 216bil/L (150-400) Neutrophils (%) (Auto) 72.6% (40-74) Lymphocytes (%) (Auto) 19.9% (14-46) Monocytes (%) (Auto) 5.9% (4-12) Eosinophils (%) (Auto) 1.2% (0-5) Basophils (%) (Auto) 0.2% (0-3) Sodium Level 131mEq/L (134-144) Potassium Level 4.1mEq/L (3.5-5.2) Chloride Level 92mEq/L (97-108) Carbon Dioxide Level 20mmol/L (18-29) Blood Urea Nitrogen 15mg/dL (6-24) Creatinine 1.01mg/dL (0.76-1.27) Estimat Glomerular Filtration Rate 83mL/min (>59) Glucose Level 590mg/dL (60-99) Calcium Level 8.6mg/dL (8.5-10.1) Magnesium Level 1.7mg/dL (1.6-2.6) Total Bilirubin 0.3mg/dL (0.0-1.2) Aspartate Amino Transf (AST/SGOT) 14U/L (0-50) Alanine Aminotransferase (ALT/SGPT) 11U/L (0-44) Alkaline Phosphatase 131U/L (25-150) Troponin T < 0.010ug/L (0.0-0.011) Pro-B-Type Natriuretic Peptide 258.4pg/mL (0-121) Total Protein 7.2g/dL (6.4-8.4) Albumin 3.6g/dL (3.4-5.0) Urine Color Straw (YELLOW) Urine Appearance Clear (CLEAR,HAZY) Urine pH 6.0 (5.0-8.0) Urine Specific Col[place]er 1.005 (1.003-1.035) Urine Protein Negativemg/dL (NEG,TRACE) Urine Glucose (UA) 1000mg/dL (NEGATIVE) Urine Ketones Negativemg/dL (NEGATIVE) Urine Occult Blood Large (NEGATIVE) Urine Nitrite Negative (NEGATIVE) Urine Bilirubin Negative (NEGATIVE) Urine Urobilinogen Normalmg/dL (NORMAL) Urine Leukocyte Esterase Negative (NEGATIVE) Urine RBC 11-50/hpf (0-2) Urine WBC 0-5/hpf (0-5) Urine Epithelial Cells None/hpf (NONE-MOD) Urine Crystals None seen (NONE SEEN) Urine Bacteria None/hpf (NONE-FEW) Urine Hyaline Casts None/lpf (NONE) Urine Granular Casts None seen (NONE SEEN) Urine Waxy Casts None seen (NONE SEEN) Urine Red Blood Cell Casts None seen (NONE SEEN) Urine White Blood Cell Casts None seen (NONE SEEN) Urine Mucus None seen (None Seen) Urine Trichomonas None seen (NONE SEEN) Urine Yeast None (NONE SEEN) Urinalysis Comment None Urine Culture Reflexed Not indicated Hold Urine Received (Received) ECG Interpretation ECG Interpretation: Sinus Rhythm Rate 86 bpm Prolonged QT interval Unchanged from prior 06/22/17 Time: 18:21 Interpreted by: ED physician X-Ray Chest Interpretation Chest Xray Interpretation: IMPRESSION: No acute cardiopulmonary disease. Dictated by: Sim Glass M.D. on 07/05/2017 at 18:46 Interpretation / Wet Read by: Interpret - Radiologist Re-Eval/Medical Decision Med Decision/Clinical Course In summary, 47-year-old male presenting to the ED for evaluation of chest pain radiating up to his right arm since earlier today. Differential includes ACS, PE , PTX, aortic dissection, myocarditis/pericarditis, abdominal etiology such as cholecystitis, MSK pain. Pain has been constant since onset; troponin negative. EKG demonstrates sinus rhythm with no acute ischemic changes. No pleuritic symptoms, symptoms similar to previous angina - low risk by Well[facility] for PE and unlikely clinically. No evidence of pneumothorax on chest x-ray or exam. Pain not described as tearing through to the back, CXR w/ no evidence of widened mediastinum, normal neuro exam, and equal pulses to bilateral upper and lower extremities; aortic dissection seems very unlikely. Neither clinical presentation, exam, or EKG seem c/w pericarditis or myocarditis. No abdominal pain or tenderness. Rest of labs reviewed, notable for a glucose of 590, blood in urine. Patient is a known poorly controlled diabetic; given insulin in the ED with improvement. Patient seen yesterday here and diagnosed with a 3 mm ureterovesicular junction stone, since passed; I suspect this is why he is having blood in his urine at this time. Patient took aspirin earlier today - given morphine and nitroglycerin here in the ED with some relief of symptoms. Shortly after arrival, patient was transiently hypotensive, however responded well to fluids. I discussed the case with Dr. Gutierrez. Concern for ACS/ unstable angina in this patient. Started on nitroglycerin and a heparin drip. Plan admission for further management and evaluation. Patient agreeable to plan , no further questions. Source of Hx: Old records Time of Eval: 21:48 Re-Evaluation/Progress Note: Patient is rechecked. He is requesting pain medication at this time. His questions about hi current results are addressed. Time of Eval: 22:01 Re-Evaluation/Progress Note: Blood glucose is persistent in the 500's Time of Eval: 22:29 Patient Status: Condition improved Re-Evaluation/Progress Note: Blood glucose 350. Patient is informed of the plan to admit to the hospital. All questions are addressed. His pain has improved. Heparin drip initiated. Consultation #1: Referral / Consult Name: Artemio Gutierrez MD Consulted With: Cardiology Call Returned at: 21:48 Curing Press Operator: Will see patient, Agrees with eval, Agrees with plan, Accepts admit Note: Recommends admission at this time, though if unable to find a bed here may be need to be transferred. Consultation #2: Referral / Consult Name: Hayden Escamilla MD Consulted With: Hospitalist Requested Call at: 22:27 Curing Press Operator: Will see patient, Agrees with eval, Agrees with plan, Accepts admit Note: Discussed pt condition, will admit. Counseled Regarding: Diagnosis, Lab results, Need for admission Discharge & Departure Primary Impression: Chest pain Chest pain type: unspecified Qualified Code: R07.9 - Chest pain, unspecified Additional Impression: Hyperglycemia Disposition: ADMITTED TO HOSPITAL Discharge Condition All VS Reviewed: Yes Condition: Improved Referrals: Santiago Funez MD (PCP) Crit Care Except Billable Proc Time Spent: 30-74 minutes (25 minutes) Services Performed: Patient management by me, Time spent at bedside, Reviewing test results, Reviewing imaging, Discussing patient care, Documentation in record, Time with fam/surrogate Critical Care Notes: Please see MDM. 45 minutes of critical care time was spent in the management of this patient. Scribe Attestation Portions of this note were transcribed by Perla Walker. Dr. Sang Luke, personally performed the history, physical exam and medical decision-making; I reviewed and confirmed the accuracy of the information in the transcribed note. Signed by: Perla Walker, 07/05/17. copies to: Santiago Funez MD, William B MD Jul 05, 2017 19:40 [facility] Jul 05, 2017 20:47 [facility] Jul 05, 2017 20:47 Critical Care Notes: Please see MDM. Scribe Attestation Portions of this note were transcribed by Perla Luke Dr. Sang, personally performed the history, physical exam and medical decision-making; I reviewed and confirmed the accuracy of the information in the transcribed note. Signed by: Perla Walker, 07/05/17. copies to: Santiago Funez MD,Zackary Gayle MD Jul 05, 2017 19:40 PERLA WALKER Jul 05, 2017 20:47
[2017-07-05 19:58] LABS: Magnesium 1.7 mg/dL (1.6-2.6)
[2017-07-05 20:01] LABS: TROPONIN T < 0.010 ug/L (0.0-0.011)
[2017-07-05] MEDS ORDERED: Insulin Human REGular-Omnicell 100 Unit/mL SUBQ ONE (20:45)
[2017-07-05 21:03] LABS: INR 0.93 ratio
[2017-07-05 21:44] LABS: APPEARANCE,URINE CLEAR (CLEAR,HAZY); COLOR,URINE STRAW (YELLOW); OCCULT BLOOD,URINE LARGE (NEGATIVE); UROBILINOGEN,URINE NORMAL (NORMAL)
--- NOTE | 2017-07-05 22:39 | PCM.HPMED ---
Subjective Date of Service Jul 05, 2017 Primary Provider: Admitting Physician: Primary Care Physician: Santiago Funez MD Attending Physician: Chief Complaint: Chest pain History of Present Illness: Patient is a 43-year-old male with history of coronary artery disease status post stents, type II diabetes, CHF, stroke, myocardial infarction, hypertension , recurrent nephrolithiasis. Patient has had multiple visits to the ED in the past 6 months for angina and nephrolithiasis. Last ED visit was right flank pain CT workup showed 3 mm stone visualized in the right uretovesicle junction, and moderate hydronephrosis. Patient presented to ED this evening 07/05 complaining of chest pain that began this afternoon. Patient stated symptoms include shortness of breath, numbness in his extremities. Patient stated took 80 mg of Lantus this morning. Otherwise no other medications taken. EKG in the ED showed sinus rhythm rate 86, prolonged QT interval change from prior EKG 06/22/70 Chest x-ray showed no acute cardiopulmonary disease Initial laboratory values troponins negative BMP to 58.4 elevated from prior Glucose 590 Sodium 131 Vitals in ED showed transient hypotension maps 70s given bolus IV fluids Cardiology where patient, will see patient in a.m. recommend stress test, trend troponins, no further plan Patient interviewed at bedside patient stated that he was walking in [facility] earlier this afternoon when he felt a sudden sharp pain in his chest and right arm, with associated symptoms of dizziness and nausea shortness of breath. Patient stated that he sat down and waited for 10 minutes symptoms improved as he stood up and started walking and symptoms returned patient stated that he did not have nitroglycerin on him and did not take any. Patient stated that he initially felt a little foggy during this episode. Patient noted on an ER and currently symptoms have reduced he no longer has a sharp chest pain however he has chest discomfort described as a dull ache, stating that he is not feeling short of breath but he does have a headache. Patient noted that he passed a kidney stone earlier today residual pain with urination. Patient stated that he would like "something to knock me out so I do not feel anything, I just want to sleep" patient denies fever chills, nausea, vomiting or shortness of breath, backache. Review of Systems: A comprehensive review of systems was conducted with the patient and found to be negative except as above in the History of Present Illness. Allergies Coded Allergies: Honey Bee (Verified Allergy, Severe, anaphylaxis, 07/04/17) Penicillins (Verified Allergy, Severe, SWELLING, HIVES, ITCHING, 07/04/17) TAPE (Verified Allergy, Mild, blisters, 07/04/17) levetiracetam (Verified Allergy, Unknown, 07/04/17) "Sleep all day long" hydromorphone (Verified Adverse Reaction, Intermediate, HALLUCINATIONS, "HIGH", 07/04/17) sumatriptan (Verified Adverse Reaction, Intermediate, CONVULSIONS, SHAKES , 07/04/17) Home Medications llopurinol (Allopurinol) 300 Mg Tablet 300 MG PO HS Aspirin (Aspirin) 81 Mg Tablet 81 MG PO QAM Atorvastatin (Lipitor) 80 Mg Tablet 80 MG PO HS Clopidogrel (Clopidogrel) 75 Mg Tablet 75 MG PO QAM Doxazosin (Cardura) 4 Mg Tablet 8 MG PO QAM Finasteride (Finasteride) 5 Mg Tablet 5 MG PO QAM Fluoxetine (Fluoxetine) 40 Mg Capsule 40 MG PO QAM Furosemide (Furosemide) 40 Mg Tablet 40 MG PO QAM Gabapentin (Gabapentin) 600 Mg Tablet 600 MG PO BID Insulin Glargine (Lantus U100 Insulin Vial) 100 Unit/Ml Vial 80 UNIT SUBQ BID Insulin Regular, Human (HUMulin-R U100 Insulin Vial) 100 Unit/1 Ml Vial 40 UNIT SUBQ BIDWM BREAKFAST AND DINNER Insulin Regular, Human (HUMulin-R U100 Insulin Vial) 100 Unit/1 Ml Vial 2-20 UNIT SUBQ ACHS SLIDING SCALE Isosorbide MN ER (Isosorbide MN ER) 60 Mg Tab.er.24h 60 MG PO QAM Lisinopril (Lisinopril) 2.5 Mg Tablet 2.5 MG PO QAM Metoprolol Succinate ER (Metoprolol Succinate ER) 25 Mg Tab.er.24h 25 MG PO QAM Ondansetron ODT (Ondansetron ODT) 8 Mg Tab.rapdis 8 MG PO QID Oxycodone HCl/Acetaminophen (Endocet 10-325 mg Tablet) 1 Each Tablet 2 EACH PO QID Pantoprazole DR (Pantoprazole DR) 40 Mg Tablet.dr 40 MG PO QAM Potassium Chloride ER (Potassium Chloride ER) 20 Meq Tablet.er 20 MEQ PO QAM TAKE WITH FOOD Tamsulosin ER (Tamsulosin ER) 0.4 Mg Cap.er.24h 0.4 MG PO DAILY PMH Patient states has had "nine stents" placed at [facility] For CP 08/01/2016, 08/04/16, and 08/26/16 Multiple ED visits for CP, admitted for chest pain 11/21/2016 and 04/20/2017 with hospitalist diagnosis of narcotic seeking behavior Last admit 05/17/17 - Unstable angina Unstable angina CAD - multiple stents, cardiac caths 02/14, 03/12, 04/11, ad 04/17 w/stent placed to proximal LAD overlapping prior stent and "plavix non-responder" Syncope Type two diabetes with neuropathy Chronic back and leg pain Lower extremity DVT "years ago" per patient, details unclear History of migraines BPH Kidney Stones On Warfarin and Plavix Seizure Spinal meningitis [place] 2014 Concern for TIA October 2016, MRI/MRA negative Reports: COPD, Congestive heart failure, Hypertension, Stroke Reports: Heroin use Surgical History Shoulder surgery (joint replacement) Left knee surgery Ganglion cyst in right hand Cardiac stents ("x9" - at Prov) Reports: Cholecystectomy Family History CAD and mother Father of myocardial infarction Social History Hx Alcohol Use: No Hx Substance Use: No Hx Tobacco Use: Yes Smoking Status: Current Every Day Smoker (0.5 pk per day) Exam Vital Signs Vital Sign - Last Date Time Temp Pulse Resp B/P Pulse Ox O2 Delivery O2 Flow Rate FiO2 07/05/17 21:42 67 17 109/53 98 Room Air 07/05/17 18:33 36.6 2 Exam General: No acute distress, well-developed, well-nourished, appropriately interactive HEENT: Normocephalic, atraumatic. External ears without defect. Pupils equal, round, and reactive to light and accommodation. Anicteric sclerae, moist conjunctivae, and no lid lag. Oropharynx free of erythema and cobble stoning with moist mucosa. Neck: Supple with full range of motion. No jugular venous distension. No bruits. No lymphadenopathy or thyromegaly. Cardiovascular: Regular rate and rhythm with no murmurs, rubs, or gallops appreciated Pulmonary: Clear to auscultation bilaterally with no crackles, mild scattered wheezes. Normal respiratory effort with no use of accessory muscles. Abdomen: Bowel tones present. Soft, tender RUQ, nondistended. No hepatosplenomegaly or masses appreciated. Extremities: No clubbing, cyanosis, edema, or lymphadenopathy appreciated. Skin: Normal temperature, turgor, and texture; no rash, ulcers, or subcutaneous nodules appreciated. Neurological: Cranial nerves grossly intact. Normal muscle strength, tone, and bulk. Reflexes, coordination, and sensory function within normal limits. No known gait impairment. Psychiatric: Normal mood and affect. Alert and oriented to person, place, and time. Lab and Diagnostics Labs Laboratory Tests 72 Hours Test 07/05/17 18:25 07/05/17 19:40 07/05/17 21:10 White Blood Count 10.0th/mm3 (3.8-10.1) Red Blood Count 4.70mil/mm3 (4.40-5.80) Hemoglobin 13.9g/dL (13.8-17.2) Hematocrit 40.8% (41.0-50.0) Mean Corpuscular Volume 86.8fL (81-100) Mean Corpuscular Hemoglobin 29.6pg (27.0-35.0) Mean Corpuscular Hemoglobin Concent 34.1% (32.0-37.0) Red Cell Distribution Width 13.0% (12.3-15.4) Platelet Count 216bil/L (150-400) Neutrophils (%) (Auto) 72.6% (40-74) Lymphocytes (%) (Auto) 19.9% (14-46) Monocytes (%) (Auto) 5.9% (4-12) Eosinophils (%) (Auto) 1.2% (0-5) Basophils (%) (Auto) 0.2% (0-3) Prothrombin Time 9.9sec (8.1-12.5) Prothromb Time International Ratio 0.93ratio Sodium Level 131mEq/L (134-144) Potassium Level 4.1mEq/L (3.5-5.2) Chloride Level 92mEq/L (97-108) Carbon Dioxide Level 20mmol/L (18-29) Blood Urea Nitrogen 15mg/dL (6-24) Creatinine 1.01mg/dL (0.76-1.27) Estimat Glomerular Filtration Rate 83mL/min (>59) Glucose Level 590mg/dL (60-99) Calcium Level 8.6mg/dL (8.5-10.1) Magnesium Level 1.7mg/dL (1.6-2.6) Total Bilirubin 0.3mg/dL (0.0-1.2) Aspartate Amino Transf (AST/SGOT) 14U/L (0-50) Alanine Aminotransferase (ALT/SGPT) 11U/L (0-44) Alkaline Phosphatase 131U/L (25-150) Troponin T < 0.010ug/L (0.0-0.011) Pro-B-Type Natriuretic Peptide 258.4pg/mL (0-121) Total Protein 7.2g/dL (6.4-8.4) Albumin 3.6g/dL (3.4-5.0) Urine Color Straw (YELLOW) Urine Appearance Clear (CLEAR,HAZY) Urine pH 6.0 (5.0-8.0) Urine Specific [place] 1.005 (1.003-1.035) Urine Protein Negativemg/dL (NEG,TRACE) Urine Glucose (UA) 1000mg/dL (NEGATIVE) Urine Ketones Negativemg/dL (NEGATIVE) Urine Occult Blood Large (NEGATIVE) Urine Nitrite Negative (NEGATIVE) Urine Bilirubin Negative (NEGATIVE) Urine Urobilinogen Normalmg/dL (NORMAL) Urine Leukocyte Esterase Negative (NEGATIVE) Urine RBC 11-50/hpf (0-2) Urine WBC 0-5/hpf (0-5) Urine Epithelial Cells None/hpf (NONE-MOD) Urine Crystals None seen (NONE SEEN) Urine Bacteria None/hpf (NONE-FEW) Urine Hyaline Casts None/lpf (NONE) Urine Granular Casts None seen (NONE SEEN) Urine Waxy Casts None seen (NONE SEEN) Urine Red Blood Cell Casts None seen (NONE SEEN) Urine White Blood Cell Casts None seen (NONE SEEN) Urine Mucus None seen (None Seen) Urine Trichomonas None seen (NONE SEEN) Urine Yeast None (NONE SEEN) Urinalysis Comment None Urine Culture Reflexed Not indicated Hold Urine Received (Received) Received (Received) Result Diagram: 07/05/17182407/05/171824 X-Rays, CTs and MRIs Chest XRay Chest Xray Interpretation: IMPRESSION: No acute cardiopulmonary disease. Dictated by: Sim Glass M.D. on 07/05/2017 at 18:46 Interpretation / Wet Read by: Interpret - Radiologist 12-lead ECG ECG Interpretation: Sinus Rhythm Rate 86 bpm Prolonged QT interval Unchanged from prior 06/22/17 Time: 18:21 Interpreted by: ED physician Assessment & Plan Patient is a 43-year-old male with history of coronary artery disease status post stents, type II diabetes, CHF, stroke, myocardial infarction, hypertension , recurrent nephrolithiasis. Admitted for chest pain rule out stress test in a.m., trend troponins. 1. Unstable angina, active, present on admission -Patient frequently for her to daily for chest pain, exhibiting significant behavior - Chest pain rule out with stress test in the morning and trend troponins every 6 hrs - ASA 81 mg - Morphine 1-2 mg IV PRN chest pain max 10 mg and 4 hour period - Nitrostat 0.4 mg PRN chest pain - Start atorvastatin 40 mg by mouth at bedtime - 650 mg acetaminophen by mouth every 8 for moderate pain - PRN EKG - PTT/PT/INR ordered - Maintenance IV fluid and as 100 mls/hr - Lipid panel ordered -Repeat CBC, CMP a.m. 2. Hyperglycemia, non-DKA, non-hyperosmolar, active, present on admission -Patient type II diabetic insulin-dependent patient stated he took 80 mg Lantus this morning although insulin given, 30 units of Lantus given in the ED - Bedside blood glucose ordered - 30 units insulin Lantus at bedtime - High-dose correctional scale ordered 3. Nephrolithiasis, present on admission, active - History of recurrent kidney stones, - Last CT scan showed 3 mm stone at the ureterovesical junction - Continue IVF as above - Oxycodone 5-325 to 2 tabs by mouth every 6-8 hours as needed for moderate pain - Order to strain urine Patient is admitted under inpatient status with expected length of stay greater than 2 midnights due to severity of presenting symptoms, risk of adverse event, and complexity of treatment plan. Pain Evaluation: Adequate Pain Control GI Prophylaxis: Proton Pump Inhibitor VTE Prophylaxis: Sub-Q Enoxaparin Resuscitation Status: CPR: Attempt Resuscitation Attending Statement The patient was seen and examined together with Dr. Quezada on 07/05 and I agree with the history, exam and plan as outlined in the note above. CRISTIAN QUEZADA DO Jul 05, 2017 22:39 Hayden Escamilla MD Jul 06, 2017 03:41
[2017-07-05] MEDS ORDERED: Alum-Mag Hydrox-Simeth 30 mL Suspension PO PRN (22:45)
[2017-07-05] MEDS ORDERED: Polyethylene Glycol (PEG) 17 Gm Powder PO PRN (22:45)
[2017-07-05] MEDS ORDERED: Ondansetron 2 mg/mL 2 mL Inj IVPUSH PRN (22:45)
[2017-07-05] MEDS ORDERED: Heparin 25K Unit/500mL 0.45 NS 25,000 UNIT in IV Premix 1 EACH IV ONE (22:50)
[2017-07-05] MEDS ORDERED: Heparin 5,000 Unit/mL Inj IVPUSH ONE (22:50)
[2017-07-05] MEDS ORDERED: Nitroglycerin 2% 1 Gm Ointment TOPICAL ONE (22:55)
[2017-07-05] MEDS ORDERED: oxyCODONE-Acetamin 5-325 mg Tablet PO PRN (23:15)
[2017-07-05 23:51] LABS: INR 0.92 ratio
[2017-07-06] VITALS (7 sets, daily range): BP systolic 107–121; BP diastolic 65–80; PULSE 52–62; RESP 18–22; O2SAT 94–96
--- NOTE | 2017-07-06 00:15 | NUR ---
Admit Note Pt admitted [place] to [facility] from ER, alert and orientedx3, c/o sternal pain 7-8/10, pressure like, radiated to right shoulder, intermittently with activities, last 10-15min, some SOB, mild nausea with chest pain, no diaphoresis or pale or cyanosis noted. BP 118/77 hr 55, spo2 95% on RA, afebrile. Lung sounds clear, HR regular, no murmur, Tele: SR [address]-T changes per test technician, abdomen soft, nontender, BT active, no edema at all extremities. Pt oriented call light, care ongoing. in room. Heparin drip initially ordered at ER, Dr. Quezada verified by charge nurse Ivette Abraham: Do not give Heparin drip, do not given Nitro paste due to low BP, will discontinue both.
[2017-07-06] MEDS: 0.9% Sodium Chloride 1,000 ML IV SCH ×2 (00:39→09:15)
[2017-07-06] MEDS ORDERED: ONDA-54 PO (01:00)
[2017-07-06] MEDS ORDERED: OXYC10TA8 PO (01:00)
[2017-07-06] MEDS ORDERED: Glucose 40% Oral Gel 15 Gm Tube PO PRN (01:15)
[2017-07-06] MEDS ORDERED: Dextrose 10% 250 ML IV PRN (02:05)
[2017-07-06 02:48] LABS: BASOPHILS % (AUTO) 0.5 % (0-3); EOSINOPHILS % (AUTO) 1.8 % (0-5); MONOCYTES % (AUTO) 6.8 % (4-12); Mean Corpuscular Hemoglobin 29.5 pg (27.0-35.0); Mean Corpuscular Volume 85.8 fL (81-100); NEUTROPHILS % (AUTO) 59.2 % (40-74); Platelet Count 192 bil/L (150-400)
[2017-07-06 03:26] LABS: TROPONIN T < 0.010 ug/L (0.0-0.011)
[2017-07-06] MEDS ORDERED: Potassium Chloride Inj 20 MEQ in Dextrose 5% 250 ML IV ONE (03:50)
[2017-07-06] MEDS: oxyCODONE ER 10 mg ER12 Tablet PO SCH ×2 (04:03→08:43)
[2017-07-06] MEDS ORDERED: Potassium Chloride Inj 30 MEQ in Dextrose 5% 500 ML IV ONE (07:15)
[2017-07-06] MEDS ORDERED: Isosorbide Mononitrate 60 mg ER24 Tablet PO SCH (07:30)
[2017-07-06] MEDS ORDERED: Potassium Chloride 20 mEq SR Tablet PO SCH (08:00)
[2017-07-06] MEDS ORDERED: Insulin GLARgine 100 Unit/mL Syringe SUBQ SCH ×3 (08:30→21:00)
[2017-07-06] MEDS ORDERED: Pantoprazole 20 mg ER24 Tablet PO SCH (08:30)
--- NOTE | 2017-07-06 08:57 | PCM.PNMED ---
Subjective Date of Service Jul 06, 2017 Subjective Patient seen and examined. Complains of pain everywhere, wants a "shot" as only that helps with pain. Vitals noted. Exam Vital Signs Vital Sign - Last Date Time Temp Pulse Resp B/P Pulse Ox O2 Delivery O2 Flow Rate FiO2 07/06/17 06:02 62 07/06/17 04:41 36.5 22 111/73 95 Room Air 07/05/17 23:23 2 Intake and Output 07/05/17 07/05/17 07/06/17 Cumulative From/Thru 15:00 23:00 07:00 07/05/17 18:16 - 07/06/17 06:20 Intake Total 1000 ml 584 ml 1584 ml Balance 1000 ml 584 ml 1584 ml Intake Oral 200 ml 200 ml IV Total 1000 ml 384 ml 1384 ml # Voids 1 1 Exam General: No acute distress, well-developed, well-nourished, appropriately interactive. Cardiovascular: Regular rate and rhythm with no murmurs, rubs, or gallops appreciated Pulmonary: Clear to auscultation bilaterally with no crackles, mild scattered wheezes. Normal respiratory effort with no use of accessory muscles. Abdomen: Bowel tones present. Soft, tender RUQ, nondistended. No hepatosplenomegaly or masses appreciated. Psychiatric: Normal mood and affect. Alert and oriented to person, place, and time. Lab and Diagnostics Result Diagram: 07/06/17 0240 07/06/17 0240 X-Rays, CTs and MRIs Chest XRay Chest Xray Interpretation: IMPRESSION: No acute cardiopulmonary disease. Dictated by: Sim Glass M.D. on 07/05/2017 at 18:46 Interpretation / Wet Read by: Interpret - Radiologist 12-lead ECG ECG Interpretation: Sinus Rhythm Rate 86 bpm Prolonged QT interval Unchanged from prior 06/22/17 Time: 18:21 Interpreted by: ED physician Assessment & Plan Patient is a 43-year-old male with history of coronary artery disease status post stents, type II diabetes, CHF, stroke, myocardial infarction, hypertension , recurrent nephrolithiasis. Admitted for chest pain rule out stress test in a.m., trend troponins. #. Unstable angina, active, present on admission -Patient frequently comes in for chest pain Patient has been admitted multiple times for similar symptoms, as per discharge summary from last admission, patient was transferred to [place] as he has had extensive history of CAD s/p 9 stents, and CABG could be an option. As per patient, he was discharged right after by the physician there. - Chest pain rule out with stress test (NM exercise with alexys as backup) in the morning and trend troponins every 6 hrs - ASA, plavix - Morphine 1-2 mg IV PRN chest pain max 10 mg and 4 hour period - Nitrostat 0.4 mg PRN chest pain - Start atorvastatin 40 mg by mouth at bedtime - 650 mg acetaminophen by mouth every 8 for moderate pain - PRN EKG - PTT/PT/INR ordered - Maintenance IV fluid and as 100 mls/hr #. Hyperglycemia, non-DKA, non-hyperosmolar, active, present on admission -Patient type II diabetic insulin-dependent patient stated he takes 80 mg of lantus in mornings, with humlin 30 BID and then correction dose - on 50 units lantus here , will monitor sugars, and titrate up insulin as needed , patient has been npo since last night - High-dose correctional scale ordered #. Nephrolithiasis, present on admission, active - History of recurrent kidney stones, - Last CT scan showed 3 mm stone at the ureterovesical junction - Continue IVF as above - Oxycodone 5-325 to 2 tabs by mouth every 6-8 hours as needed for moderate pain - Order to strain urine #. Back pain and shoulder pain - non specific symptoms, patient takes norco +/- oxycodone at home to relieve the pain - will continue home meds for now # chronic diastolic heart failure, POA and stable - Continue home medications: Imdur, Metoprolol, Lisinopril, Furosemide # Chronic benign prostatic hypertrophy, POA and stable - Resume home meds including tamsulosin and finasteride # Chronic Morbidly obesity, BMI of 40.7, POA and stable - Recommend sleep study as outpatient to rule out TAWANNA given chronic daytime fatigue # Chronic esophageal reflux disease, POA and stable - Continue home pantoprazole Patient under observation status, less than 2 midnights. . GI Prophylaxis: Proton Pump Inhibitor VTE Prophylaxis: Sub-Q Enoxaparin VTE Mechanical Devices: Intermittant Pneumatic CD Resuscitation Status: CPR: Attempt Resuscitation Time spent 35 mins Michael Pena MD Jul 06, 2017 08:57 Michael Pena MD Jul 06, 2017 08:57
[2017-07-06] MEDS: Insulin LISPRO 300 Unit/3 mL Inj SUBQ SCH ×2 (10:05→11:55)
--- NOTE | 2017-07-06 10:20 | NUR ---
Evaluation completed. Please go to "Notes" then click on "Assessments and Notes" (bottom left corner of screen). Then select appropriate discipline tab on top of screen.
[2017-07-06] MEDS ORDERED: Insulin GLARgine 100 Unit/mL Syringe SUBQ ONE (11:50)
--- NOTE | 2017-07-06 11:52 | PCM.DIMED ---
Discharge Instructions Date of Service Jul 06, 2017 Dates of Hospitalization Jul 05, 2017 at 23:18 Discharge Diagnosis Discharge Diagnosis Chest pain , non cardiac Diet Discharge Diet: Heart Healthy, Diabetic Activity Discharge Activity: Limited until seen by PCP Call your provider Call your provider for: Fever or Chills, Shortness of breath, Chest pain, Vomitting, Excessive diarrhea Patient Instructions Follow-up with PCP in: 1 week (for a referral to a cardiovascular surgeon) Michael Pena MD Jul 06, 2017 11:52
[2017-07-06] MEDS ORDERED: METO-386 PO (11:54)
--- NOTE | 2017-07-06 11:59 | PCM.DC.MED ---
Discharge Summary Date of Service Jul 06, 2017 Dates of Hospitalization Date of Hospital Admission Jul 05, 2017 at 23:18 Date of Discharge: Jul 06, 2017 Providers: Admitting Physician: Hayden Escamilla MD Primary Care Physician: Santiago Funez MD Attending Physician: Tosha Mccray MD Diagnosis at Time of Discharge Diagnosis at Time of Discharge Chest pain , non cardiac Procedures XRay, CTs & MRIs Chest XRay Chest Xray Interpretation: IMPRESSION: No acute cardiopulmonary disease. Dictated by: Sim Glass M.D. on 07/05/2017 at 18:46 Interpretation / Wet Read by: Interpret - Radiologist ECG 12 Lead ECG Interpretation: Sinus Rhythm Rate 86 bpm Prolonged QT interval Unchanged from prior 06/22/17 Time: 18:21 Interpreted by: ED physician Brief History Patient is a 43-year-old male with history of coronary artery disease status post stents, type II diabetes, CHF, stroke, myocardial infarction, hypertension , recurrent nephrolithiasis. Patient has had multiple visits to the ED in the past 6 months for angina and nephrolithiasis. Last ED visit was right flank pain CT workup showed 3 mm stone visualized in the right uretovesicle junction, and moderate hydronephrosis. Patient presented to ED this evening 07/05 complaining of chest pain that began this afternoon. Patient stated symptoms include shortness of breath, numbness in his extremities. Patient stated took 80 mg of Lantus this morning. Otherwise no other medications taken. EKG in the ED showed sinus rhythm rate 86, prolonged QT interval change from prior EKG 06/22/70 Chest x-ray showed no acute cardiopulmonary disease Initial laboratory values troponins negative BMP to 58.4 elevated from prior Glucose 590 Sodium 131 Vitals in ED showed transient hypotension maps 70s given bolus IV fluids Cardiology where patient, will see patient in a.m. recommend stress test, trend troponins, no further plan Patient interviewed at bedside patient stated that he was walking in [facility] earlier this afternoon when he felt a sudden sharp pain in his chest and right arm, with associated symptoms of dizziness and nausea shortness of breath. Patient stated that he sat down and waited for 10 minutes symptoms improved as he stood up and started walking and symptoms returned patient stated that he did not have nitroglycerin on him and did not take any. Patient stated that he initially felt a little foggy during this episode. Patient noted on an ER and currently symptoms have reduced he no longer has a sharp chest pain however he has chest discomfort described as a dull ache, stating that he is not feeling short of breath but he does have a headache. Patient noted that he passed a kidney stone earlier today residual pain with urination. Patient stated that he would like "something to knock me out so I do not feel anything, I just want to sleep" patient denies fever chills, nausea, vomiting or shortness of breath, backache. Hospital Course Patient is a 43-year-old male with history of coronary artery disease status post stents, type II diabetes, CHF, stroke, myocardial infarction, hypertension , recurrent nephrolithiasis. Admitted for chest pain rule out stress test in a.m., trend troponins. #. Chest pain, chronic -Patient frequently comes in for chest pain - Trops X 3 negative, ruling out [place] Patient has been admitted multiple times for similar symptoms, as per discharge summary from last admission, patient was transferred to [place] as he has had extensive history of CAD s/p 9 stents, and CABG could be an option. As per patient, he was discharged right after by the physician there. - Recent stress test a month ago, showed signs of mild ischemia, patient scheduled to follow up with a manager medical affairs outpatient for medical management, and possible cardiovascular involvement - ASA, plavix to be continued - Nitrostat 0.4 mg PRN chest pain - continue atorvastatin 80 mg by mouth at bedtime #. Hyperglycemia, hs/o DM - continue home regimen #. Nephrolithiasis, present on admission, resolved -as per patient he had passed the stone yesterday - no flank pain at this point #. Back pain and shoulder pain - non specific symptoms, patient takes norco +/- oxycodone at home to relieve the pain - will continue home meds for now # chronic diastolic heart failure, POA and stable - Continue home medications: Imdur, Metoprolol (decreased dose to 12.5, patient has been [place] here), Lisinopril, Furosemide # Chronic benign prostatic hypertrophy, POA and stable - Resume home meds including tamsulosin and finasteride # Chronic Morbidly obesity, BMI of 40.7, POA and stable - Recommend sleep study as outpatient to rule out TA[place] given chronic daytime fatigue # Chronic esophageal reflux disease, POA and stable - Continue home pantoprazole . Exam Vital Signs (Last) Date Time Temp Pulse Resp B/P Pulse Ox O2 Delivery O2 Flow Rate FiO2 07/06/17 11:16 36.7 57 18 113/65 96 Room Air 07/05/17 23:23 2 Test 07/05/17 18:25 07/05/17 19:40 07/05/17 21:10 07/05/17 23:30 Magnesium Level 1.7mg/dL (1.6-2.6) Pro-B-Type Natriuretic Peptide 258.4pg/mL (0-121) Urine Color Straw (YELLOW) Urine Appearance Clear (CLEAR,HAZY) Urine pH 6.0 (5.0-8.0) Urine Specific Wayne 1.005 (1.003-1.035) Urine Protein Negativemg/dL (NEG,TRACE) Urine Glucose (UA) 1000mg/dL (NEGATIVE) Urine Ketones Negativemg/dL (NEGATIVE) Urine Occult Blood Large (NEGATIVE) Urine Nitrite Negative (NEGATIVE) Urine Bilirubin Negative (NEGATIVE) Urine Urobilinogen Normalmg/dL (NORMAL) Urine Leukocyte Esterase Negative (NEGATIVE) Urine RBC 11-50/hpf (0-2) Urine WBC 0-5/hpf (0-5) Urine Epithelial Cells None/hpf (NONE-MOD) Urine Crystals None seen (NONE SEEN) Urine Bacteria None/hpf (NONE-FEW) Urine Hyaline Casts None/lpf (NONE) Urine Granular Casts None seen (NONE SEEN) Urine Waxy Casts None seen (NONE SEEN) Urine Red Blood Cell Casts None seen (NONE SEEN) Urine White Blood Cell Casts None seen (NONE SEEN) Urine Mucus None seen (None Seen) Urine Trichomonas None seen (NONE SEEN) Urine Yeast None (NONE SEEN) Urinalysis Comment None Urine Culture Reflexed Not indicated Hold Urine Received (Received) Prothrombin Time 9.8sec (8.1-12.5) Prothromb Time International Ratio 0.92ratio Test 07/06/17 02:40 07/06/17 05:03 07/06/17 09:01 White Blood Count 8.4th/mm3 (3.8-10.1) Red Blood Count 4.37mil/mm3 (4.40-5.80) Hemoglobin 12.9g/dL (13.8-17.2) Hematocrit 37.5% (41.0-50.0) Mean Corpuscular Volume 85.8fL (81-100) Mean Corpuscular Hemoglobin 29.5pg (27.0-35.0) Mean Corpuscular Hemoglobin Concent 34.4% (32.0-37.0) Red Cell Distribution Width 13.0% (12.3-15.4) Platelet Count 192bil/L (150-400) Neutrophils (%) (Auto) 59.2% (40-74) Lymphocytes (%) (Auto) 31.5% (14-46) Monocytes (%) (Auto) 6.8% (4-12) Eosinophils (%) (Auto) 1.8% (0-5) Basophils (%) (Auto) 0.5% (0-3) Sodium Level 137mEq/L (134-144) Potassium Level 3.3mEq/L (3.5-5.2) Chloride Level 101mEq/L (97-108) Carbon Dioxide Level 20mmol/L (18-29) Blood Urea Nitrogen 12mg/dL (6-24) Creatinine 0.75mg/dL (0.76-1.27) Estimat Glomerular Filtration Rate 118mL/min (>59) Glucose Level 299mg/dL (60-99) Calcium Level 8.0mg/dL (8.5-10.1) Total Bilirubin < 0.2mg/dL (0.0-1.2) Aspartate Amino Transf (AST/SGOT) 12U/L (0-50) Alanine Aminotransferase (ALT/SGPT) 10U/L (0-44) Alkaline Phosphatase 109U/L (25-150) Total Protein 6.3g/dL (6.4-8.4) Albumin 3.0g/dL (3.4-5.0) Triglycerides Level 161mg/dL (0-149) Cholesterol Level 112mg/dL (100-199) LDL Cholesterol, Calculated 44.800mg/dL (0-99) VLDL Cholesterol 32.200mg/dL HDL Cholesterol 35mg/dL (>39) Cholesterol/HDL Ratio 3.20 (0.0-4.4) Activated Partial Thromboplast Time 20.3sec (22.8-33.0) Troponin T 0.010ug/L (0.0-0.011) Discharge Medications Discharge Medications Allopurinol (Allopurinol) 300 Mg Tablet 300 MG PO HS (Reported) Aspirin (Aspirin) 81 Mg Tablet 81 MG PO QAM (Reported) Atorvastatin (Lipitor) 80 Mg Tablet 80 MG PO HS (Reported) Clopidogrel (Clopidogrel) 75 Mg Tablet 75 MG PO QAM (Reported) Doxazosin (Cardura) 4 Mg Tablet 8 MG PO QAM (Reported) Finasteride (Finasteride) 5 Mg Tablet 5 MG PO QAM (Reported) Fluoxetine (Fluoxetine) 40 Mg Capsule 40 MG PO QAM (Reported) Furosemide (Furosemide) 40 Mg Tablet 40 MG PO QAM (Reported) Gabapentin (Gabapentin) 600 Mg Tablet 600 MG PO BID (Reported) Insulin Glargine (Lantus U100 Insulin Vial) 100 Unit/Ml Vial 80 UNIT SUBQ BID ( Reported) Insulin Regular, Human (HUMulin-R U100 Insulin Vial) 100 Unit/1 Ml Vial 40 UNIT SUBQ BIDWM (Reported) BREAKFAST AND DINNER Insulin Regular, Human (HUMulin-R U100 Insulin Vial) 100 Unit/1 Ml Vial 2-20 UNIT SUBQ ACHS (Reported) SLIDING SCALE Isosorbide MN ER (Isosorbide MN ER) 60 Mg Tab.er.24h 60 MG PO QAM (Reported) Lisinopril (Lisinopril) 2.5 Mg Tablet 2.5 MG PO QAM (Reported) Metoprolol Succinate ER (Metoprolol Succinate ER) 25 Mg Tab.er.24h 12.5 MG PO QAM Prescribed by: TOSHA MCCRAY MD Ondansetron (Ondansetron) 8 Mg Tablet 8 MG PO QID (Reported) Pantoprazole DR (Pantoprazole DR) 40 Mg Tablet.dr 40 MG PO QAM (Reported) Potassium Chloride ER (Potassium Chloride ER) 20 Meq Tablet.er 20 MEQ PO QAM ( Reported) TAKE WITH FOOD Tamsulosin ER (Tamsulosin ER) 0.4 Mg Cap.er.24h 0.4 MG PO DAILY Prescribed by: HANNAH WALLACE, As needed Albuterol HFA (Proair HFA) 8.5 Gm Hfa.aer.ad 2 PUFFS INHALATION QID PRN PRN For Shortness of Breath (Reported) Ibuprofen (Ibuprofen) 200 Mg Capsule 800 MG PO DIRECTED PRN PRN For Pain ( Reported) Naproxen (Naproxen) 375 Mg Tablet 375 MG PO BID PRN PRN For Pain Prescribed by: MONIE MALAVE DO Nitroglycerin SL (Nitroglycerin SL) 0.4 Mg Tab.subl 0.4 MG SL Q5MIN PRN PRN For Chest Pain (Reported) oxyCODONE (oxyCODONE) 10 Mg Tablet 10 MG PO Q4H PRN PRN For Pain (Reported) Followup Plan Follow-up plan Follow up with manager medical affairs (he has an appointment in 2 weeks) Discharge Diet: Heart Healthy, Diabetic Discharge Activity: Limited until seen by PCP Follow-up with PCP in: 1 week (for a referral to a cardiovascular surgeon) Time spent 35 Tosha Mccray MD Jul 06, 2017 11:58
[2017-07-06] MEDS ORDERED: TRAM-14 PO (12:02)
--- NOTE | 2017-07-06 12:40 | NUR ---
Social Work: Brief Note / Discharge Data & Assessment: EMR reviewed. Patient is a 47 year old male who was admitted on 07/05/2017 for unstable angina. Patient is on day 1 of hospitalization. Patient's insurance is [facility] Blind[facility] and [facility] Medicaid. Patient's PCP is Dr. Santiago Funez. Patient was discussed in morning rounds. Patient has been deemed medically stable for discharge per MD. PT has evaluated patient and recommendation has been made for patient to discharge home with no needs. No concerns were noted by MD or staff. Patient will discharge home with spouse. Transportation will be provided by spouse via POV. Plan: Patient will discharge home today. Transportation will be provided by spouse. Patient has no additional needs at this time. ANTHONY Goncalves
--- NOTE | 2017-07-06 13:01 | NUR ---
discharge of patient reviewed discharged instructions with patient and patient's . Both verbalized understanding. Pt discharged via wheelchair with prescriptions and instructions. Tele and IV previously discontinued. Pt left hospital with to home selfcare.
[2017-07-06] MEDS ORDERED: Insulin Human REGular (HUMulin-R) 100 Unit/mL 10 mL SUBQ SCH (17:30)
[2017-07-07] MEDS ORDERED: MeTOProlol XL 25 mg ER24 Tablet PO SCH ×2 (08:30)
== END 2017-07-06 12:50 | disposition home or self-care (01) ==
LOC: SED 18:11 → MPC 23:18 → INTOOBSV 23:18
PROVIDERS: ADMIT Hospitalist; ATTEND Hospitalist
DX: R07.89 Other chest pain (principal); E11.65 Type 2 diabetes mellitus with hyperglycemia; M54.9 Dorsalgia, unspecified; I50.32 Chronic diastolic (congestive) heart failure; N40.0 Benign prostatic hyperplasia without lower urinary tract symptoms; I10 Essential (primary) hypertension; I25.10 Atherosclerotic heart disease of native coronary artery without angina pectoris; K21.9 Gastro-esophageal reflux disease without esophagitis; J44.9 Chronic obstructive pulmonary disease, unspecified; F17.210 Nicotine dependence, cigarettes, uncomplicated; E66.01 Morbid (severe) obesity due to excess calories; Z86.73 Personal history of transient ischemic attack (TIA), and cerebral infarction without residual deficits; Z87.442 Personal history of urinary calculi; Z95.5 Presence of coronary angioplasty implant and graft; Z91.19 Patient's noncompliance with other medical treatment and regimen; Z88.0 Allergy status to penicillin; Z88.8 Allergy status to other drugs, medicaments and biological substances; Z91.018 Allergy to other foods; Z79.82 Long term (current) use of aspirin; Z79.4 Long term (current) use of insulin; Z86.718 Personal history of other venous thrombosis and embolism; Z86.69 Personal history of other diseases of the nervous system and sense organs; Z79.01 Long term (current) use of anticoagulants; Z68.41 Body mass index [BMI] 40.0-44.9, adult
CPT/HCPCS: 36415; 71010; 80053; 80061; 81000; 82375; 82803; 82948; 83036; 83735; 83880; 84484; 85025; 85610; 85730; 93005; 96361; 96372; 96374; 96375; 96376; 97161; 99291; G0378; J1650; J1815; J2270; J2405; J3480; J7030

== ENCOUNTER 2017-07-08 00:42 | Emergency (ER) | payer OTHER ==
[~2017-07-08] VITALS: Ht 172.7 cm; Wt 109.0 kg
[~2017-07-08 00:42] MED LIST changes: -ACET-171 PO; +ONDA-54 PO; -ONDA8TAB10 PO; -OXYC-408 PO; -OXYC-474 PO; +OXYC10TA8 PO; -OXYC1TAB24 PO; +TRAM-14 PO
[2017-07-08 00:47] VITALS: BP 122/73; PULSE 77; RESP 18; O2SAT 99
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
[2017-07-08 01:29] VITALS: BP 158/103; PULSE 70
[2017-07-08 01:51] VITALS: BP 120/55; PULSE 68
[2017-07-08 01:58] LABS: BASOPHILS % (AUTO) 0.3 % (0-3); EOSINOPHILS % (AUTO) 0.8 % (0-5); MONOCYTES % (AUTO) 7.7 % (4-12); Mean Corpuscular Volume 85.4 fL (81-100); NEUTROPHILS % (AUTO) 64.6 % (40-74); Platelet Count 223 bil/L (150-400)
[2017-07-08] MEDS ORDERED: HYDROmorphone 1 mg/mL Inj IVPUSH ONE (02:15)
[2017-07-08 02:33] LABS: Magnesium 1.9 mg/dL (1.6-2.6)
[2017-07-08 02:34] LABS: TROPONIN T < 0.010 ug/L (0.0-0.011)
[2017-07-08 03:07] VITALS: BP 129/62; PULSE 62
[2017-07-08 04:56] VITALS: BP 132/72; PULSE 70; RESP 22; O2SAT 99
--- NOTE | 2017-07-08 11:11 | DRSVH ---
PROCEDURE: X-RAY CHEST ONE VIEW, PORTABLE ([id number]) INDICATIONS: CHEST PAIN TECHNIQUE: One view of the chest was acquired. COMPARISON: [facility], CR, XR CHEST 1VW (PORTABLE), 07/05/2017, 18:27. FINDINGS: Surgical changes and devices: None. Lungs and pleura: No pleural effusions or pneumothorax. Lungs are clear. Mediastinum: Mediastinal contours appear normal. Heart size is normal. Bones and chest wall: No suspicious bony lesions. Overlying soft tissues appear unremarkable. IMPRESSION: No acute disease. Dictated by: Jose Smith M.D. on 07/08/2017 at 10:08 Approved by: Jose Smith M.D. on 07/08/2017 at 10:09
== END 2017-07-08 04:59 | disposition home or self-care (01) ==
LOC: SED 00:42
DX: R07.2 Precordial pain (principal); F11.20 Opioid dependence, uncomplicated; E11.40 Type 2 diabetes mellitus with diabetic neuropathy, unspecified; R61 Generalized hyperhidrosis; R51 Headache; I11.0 Hypertensive heart disease with heart failure; E11.59 Type 2 diabetes mellitus with other circulatory complications; I50.9 Heart failure, unspecified; I25.10 Atherosclerotic heart disease of native coronary artery without angina pectoris; I25.2 Old myocardial infarction; J44.9 Chronic obstructive pulmonary disease, unspecified; F17.200 Nicotine dependence, unspecified, uncomplicated; Z86.73 Personal history of transient ischemic attack (TIA), and cerebral infarction without residual deficits; Z87.442 Personal history of urinary calculi; Z95.5 Presence of coronary angioplasty implant and graft; Z96.619 Presence of unspecified artificial shoulder joint; Z90.49 Acquired absence of other specified parts of digestive tract; Z98.890 Other specified postprocedural states; Z79.82 Long term (current) use of aspirin; Z79.01 Long term (current) use of anticoagulants; Z79.4 Long term (current) use of insulin; Z88.0 Allergy status to penicillin; Z88.5 Allergy status to narcotic agent; Z88.8 Allergy status to other drugs, medicaments and biological substances; Z91.030 Bee allergy status; Z91.048 Other nonmedicinal substance allergy status
CPT/HCPCS: 36415; 71010; 80053; 82948; 83735; 84484; 85025; 93005; 96374; 99285; J1170

== ENCOUNTER 2017-07-09 15:21 | Emergency (ER) | payer OTHER ==
[~2017-07-09] VITALS: Ht 172.7 cm; Wt 118.2 kg
[2017-07-09 15:33] VITALS: BP 118/62; PULSE 67; RESP 14; O2SAT 96
--- NOTE | 2017-07-09 15:41 | ED.REPORT ---
HPI-Chest Pain 40 and Over Date of Service Jul 09, 2017 ED Provider: Quincy Meyer MD Patient is a 47 year old male with a history of CHF, CAD, multiple cardiac stents, COPD, diabetes, unstable angina and frequent ED visits for chest pain who presents to the ED via EMS after a near syncopal event. Associated symptoms include lightheadedness, diaphoresis, nausea, headache, back pain, shortness of breath and chest "cramping". The patient reports that he was walking outside when he began getting lightheaded and diaphoretic before he collapsed to the ground. Patient sat down and rested for awhile and felt better but after getting up and walking again, he had another episode of symptoms. He took two nitro at home and reports that his pain slightly improved. The patient then went to , who recommended the patient come to the ED. He states that he has had this happen multiple times and at this is his typical presentation. He is requesting pain medication. Nursing Notes Stated Complaint: CHEST PAIN Chief Complaint: Chest Pain Nursing Notes Reviewed: Yes Allergies: Coded Allergies: Honey Bee (Verified Allergy, Severe, anaphylaxis, 07/04/17) Penicillins (Verified Allergy, Severe, SWELLING, HIVES, ITCHING, 07/04/17) TAPE (Verified Allergy, Mild, blisters, 07/04/17) levetiracetam (Verified Allergy, Unknown, 07/04/17) "Sleep all day long" hydromorphone (Verified Adverse Reaction, Intermediate, HALLUCINATIONS, "HIGH", 07/04/17) sumatriptan (Verified Adverse Reaction, Intermediate, CONVULSIONS, SHAKES , 07/04/17) Scheduled Allopurinol (Allopurinol) 300 Mg Tablet 300 MG PO HS Aspirin (Aspirin) 81 Mg Tablet 81 MG PO QAM Atorvastatin (Lipitor) 80 Mg Tablet 80 MG PO HS Clopidogrel (Clopidogrel) 75 Mg Tablet 75 MG PO QAM Doxazosin (Cardura) 4 Mg Tablet 8 MG PO QAM Finasteride (Finasteride) 5 Mg Tablet 5 MG PO QAM Fluoxetine (Fluoxetine) 40 Mg Capsule 40 MG PO QAM Furosemide (Furosemide) 40 Mg Tablet 40 MG PO QAM Gabapentin (Gabapentin) 600 Mg Tablet 600 MG PO BID Insulin Glargine (Lantus U100 Insulin Vial) 100 Unit/Ml Vial 80 UNIT SUBQ BID Insulin Regular, Human (HUMulin-R U100 Insulin Vial) 100 Unit/1 Ml Vial 40 UNIT SUBQ BIDWM BREAKFAST AND DINNER Insulin Regular, Human (HUMulin-R U100 Insulin Vial) 100 Unit/1 Ml Vial 2-20 UNIT SUBQ ACHS SLIDING SCALE Isosorbide MN ER (Isosorbide MN ER) 60 Mg Tab.er.24h 60 MG PO QAM Lisinopril (Lisinopril) 2.5 Mg Tablet 2.5 MG PO QAM Metoprolol Succinate ER (Metoprolol Succinate ER) 25 Mg Tab.er.24h 12.5 MG PO QAM Ondansetron (Ondansetron) 8 Mg Tablet 8 MG PO QID Pantoprazole DR (Pantoprazole DR) 40 Mg Tablet.dr 40 MG PO QAM Potassium Chloride ER (Potassium Chloride ER) 20 Meq Tablet.er 20 MEQ PO QAM TAKE WITH FOOD Tamsulosin ER (Tamsulosin ER) 0.4 Mg Cap.er.24h 0.4 MG PO DAILY Scheduled PRN Albuterol HFA (Proair HFA) 8.5 Gm Hfa.aer.ad 2 PUFFS INHALATION QID PRN PRN For Shortness of Breath Ibuprofen (Ibuprofen) 200 Mg Capsule 800 MG PO DIRECTED PRN PRN For Pain Naproxen (Naproxen) 375 Mg Tablet 375 MG PO BID PRN PRN For Pain Nitroglycerin SL (Nitroglycerin SL) 0.4 Mg Tab.subl 0.4 MG SL Q5MIN PRN PRN For Chest Pain Tramadol (Ultram) 50 Mg Tablet 50 MG PO TID PRN PRN For Mild Pain oxyCODONE (oxyCODONE) 10 Mg Tablet 10 MG PO Q4H PRN PRN For Pain General Time Seen by MD: 15:40 Chief Complaint Chest pain Hx Obtained From: Patient Arrived By: Ambulance Sudden in Onset?: Yes Location: : Chest left Quality: Cramping, Painful Radiation: : Back: Shoulder left Migration/Movement: Reports: Chest to back Severity: Current: Moderate Recent Healthcare: Recent doctor visit, Recent hospitalization Similar Sx Previous: Yes Past Medical History 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[place], [place] Patient states has had "nine stents" placed at [facility] For CP 08/01/2016, 08/04/16, and 08/26/16 Multiple ED visits for CP, admitted for chest pain 11/21/2016 and 04/20/2017 with hospitalist diagnosis of narcotic seeking behavior Multiple ED visits in 2017 - See last admit w/cardiology consultatation 04/2017 Last admit 05/17/17 - Unstable angina Past Medical History Unstable angina CAD - multiple stents, cardiac caths 02/14, 03/12, 04/11, ad 04/17 w/stent placed to proximal LAD overlapping prior stent and "plavix non-responder" Syncope Type two diabetes with neuropathy Chronic back and leg pain Lower extremity DVT "years ago" per patient, details unclear History of migraines BPH Kidney Stones On Warfarin and Plavix Seizure Spinal meningitis [place] 2014 Concern for TIA October 2016, MRI/MRA negative Reports: COPD, Congestive heart failure, Hypertension, Stroke Reports: Heroin use Past Surgical History Shoulder surgery (joint replacement) Left knee surgery Ganglion cyst in right hand Cardiac stents ("x9" - at [facility]) Reports: Cholecystectomy Family History Both of the patient's parents are still alive Smoking History Current Every Day Smoker Social History Alcohol Use: Denies alcohol use Drug Use: Denies drug use Other Social History: Good social support, Frequent ED visitor, , Local resident 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 Physical Exam Initial Vital Signs Vital Signs (First) Date Time Temp Pulse Resp B/P Pulse Ox O2 Delivery O2 Flow Rate FiO2 07/09/17 15:33 37.2 67 14 118/62 96 Room Air Initial VS: Reviewed General/Constitutional: Awake, Alert, No acute distress Respiratory / Chest: Atraumatic, Breath sounds NL, Breath sounds = bilat, No respiratory distress Cardiovascular: Heart rate NL, Regular rhythm, Heart sounds NL, No gallop, No murmurs, No rubs Abdomen: Atraumatic, Soft, Non-tender, No distention Back: Atraumatic no C,T or L tenderness no ecchymosis about the buttocks no step offs or bony tenderness diffuse paraspinal tenderness about the lumbar region Lower Extremity / Pelvis / MS: Atraumatic, Neurologic intact, Vascular intact no lateralizing calf swelling or tenderness Skin: Atraumatic, Color NL, No rash, Warm, Dry Neurologic: Oriented X3, Speech NL Psychiatric: Affect NL, Mood NL Head / Eyes: Atraumatic, Normocephalic, PERRL, EOMI Upper Extremity / MS: Atraumatic, Full range of motion good radial pulses Interpretation & Diagnostics Lab Results Interpretation Result Diagram: 07/09/17 1600 07/09/17 1600 Test 07/09/17 16:00 07/09/17 19:46 White Blood Count 8.5th/mm3 (3.8-10.1) Red Blood Count 4.69mil/mm3 (4.40-5.80) Hemoglobin 13.9g/dL (13.8-17.2) Hematocrit 40.5% (41.0-50.0) Mean Corpuscular Volume 86.4fL (81-100) Mean Corpuscular Hemoglobin 29.6pg (27.0-35.0) Mean Corpuscular Hemoglobin Concent 34.3% (32.0-37.0) Red Cell Distribution Width 12.9% (12.3-15.4) Platelet Count 187bil/L (150-400) Neutrophils (%) (Auto) 72.7% (40-74) Lymphocytes (%) (Auto) 20.0% (14-46) Monocytes (%) (Auto) 6.0% (4-12) Eosinophils (%) (Auto) 0.8% (0-5) Basophils (%) (Auto) 0.4% (0-3) Sodium Level 134mEq/L (134-144) Potassium Level 4.2mEq/L (3.5-5.2) Chloride Level 96mEq/L (97-108) Carbon Dioxide Level 20mmol/L (18-29) Blood Urea Nitrogen 19mg/dL (6-24) Creatinine 1.03mg/dL (0.76-1.27) Estimat Glomerular Filtration Rate 82mL/min (>59) Glucose Level 466mg/dL (60-99) Calcium Level 8.8mg/dL (8.5-10.1) Magnesium Level 1.9mg/dL (1.6-2.6) Total Bilirubin 0.3mg/dL (0.0-1.2) Aspartate Amino Transf (AST/SGOT) 15U/L (0-50) Alanine Aminotransferase (ALT/SGPT) 12U/L (0-44) Alkaline Phosphatase 128U/L (25-150) Total Protein 7.0g/dL (6.4-8.4) Albumin 3.5g/dL (3.4-5.0) Troponin T < 0.010ug/L (0.0-0.011) ECG Interpretation ECG Interpretation: no ST segment elevation T wave flattening in the anteroseptal leads borderline prolonged QT interval when compared to previous EKG from 07/08/17 (1 day ago), no acute changes Interpreted by: ED physician Normal ECG Interpretation: Normal rate (64), Normal sinus rhythm Repeat ECG: Repeat ECG unchanged X-Ray Chest Interpretation Chest Xray Interpretation: IMPRESSION: No acute cardiopulmonary disease process. Dictated by: Cindy Gross MD, PhD on 07/09/2017 at 17:41 Approved by: Cindy Gross MD, PhD on 07/09/2017 at 17:42 View: Portable, 1 view Interpretation / Wet Read by: Interpret - Radiologist Re-Eval/Medical Decision Med Decision/Clinical Course Patient is a 47 year old male with a history of CHF, CAD, multiple cardiac stents, COPD, diabetes, unstable angina and frequent ED visits for chest pain who presents to the ED via EMS after a near syncopal event. Associated symptoms include lightheadedness, diaphoresis, nausea, headache, back pain, shortness of breath and chest "cramping". The patient reports that he was walking outside when he began getting lightheaded and diaphoretic before he collapsed to the ground. Patient sat down and rested for awhile and felt better but after getting up and walking again, he had another episode of symptoms. He took two nitro at home and reports that his pain slightly improved. The patient then went to , who recommended the patient come to the ED. He states that he has had this happen multiple times and at this is his typical presentation. He is requesting pain medication. Here in the emergency Department the patient is afebrile, hemodynamically stable and in no apparent distress. Order list: 324mg ASA, oral Oxycodone, 10 units of insulin, 1L of fluid Labs: CBC unremarkable, CMP notable for a glucose of 466, otherwise CMP is unremarkable negative trop, repeat trop negative EKG demonstrated sinus rhythm, 64bpm with no ST segment elevation, T wave flattening in the anteroseptal leads borderline prolonged QT interval, when compared to previous EKG from 07/08/17 (1 day ago), no acute changes Repeat EKG at 2015 demonstrated sinus rhythm, 65bpm with normal axis, normal interval, no ST segment elevation, no acute T wave abnormalities, and no acute changes compared to EKG from first arrival CXR: Obtained, reviewed and interpreted by myself shows no evidence of infiltrates, effusions or pneumothorax. Cardiac and mediastinal silhouette normal. No bony or soft tissue abnormalities. Reviewed most recent visit to the ED, which was two days ago. Patient presented after a syncopal episode. At that time, it is noted that his vitals were stable , CMP and CBC were unremarkable besides a glucose 337. His trop was negative. Patient was ultimately discharged from the ED. Reviewing his recent admission to [facility] (07/05/17-07/06/17) it is noted that the patient had negative serial troponins with no evidence of cardiac ischemia. He has also had multiple recent stress tests, which were also reassuring. The patient's echocardiogram from April (two months ago) demonstrated an ejection fracture of 55-60%. The patient is currently on Plavix, ASA and takes nitro as needed. Consult with patient's core driller in [place] who agrees that the patient should be medically managed at this time and he does not feel that admission is required unless there is objective evidence of ischemia from EKG or an elevated trop. The patient had a left heart catheter in April of 2017 that showed moderate areas of stenosis, though there is no regions of significant stenosis or lesions amendable to PCI. Was observed here in the emergency department for multiple hours during which serial troponin and serial EKGs were unremarkable. Patient repeatedly asked for IV narcotics and after receiving IV morphine and reported that his pain was completely better. He stated he felt better and would like to go home. The patient was offered admission for further workup due to concern for unstable angina and cardiac etiology however he stated that "it is always the same thing and there is nothing they will do". At this time I see no evidence the patient is experiencing a myocardial infarction though his history and presentation today is quite concerning. That being said, he presents similarly with extreme frequency and it is very difficult to determine to what degree this presentation is organic in nature. This patient is very challenging as he has known her real disease though often presents with chest pain and negative workup. I had extensive discussions with the patient today as well as his core driller and it is not felt the patient would be likely to benefit from admission. Moreover the patient does not desire admission. He demonstrates decisional capacity and insight into his condition and will call tomorrow to follow up with his core driller on an outpatient basis. He is advised to return immediately for any new or recurrent symptoms. Prior to discharge follow- up and return precautions were reviewed in detail with the patient who verbalized understanding and agreement with the plan. The patient was discharged in stable condition. Time of Eval: 18:59 Re-Evaluation/Progress Note: Discussed results and plan for repeat trop Time of Eval: 20:37 Re-Evaluation/Progress Note: Discussed results and plan for discharge. Patient understands and agrees to plan. All questions were addressed. Consultation : Consulted With: Cardiology Call Returned at: 16:49 Note: Consult with patient's core driller in [place] who agrees that the patient should be medically managed at this time and he does not feel that admission is required unless there is objective evidence of ischemia from EKG or an elevated trop. The patient had a left heart catheter in April of 2017 that showed moderate areas of stenosis, though there is no regions of significant stenosis or lesions amendable to PCI. Counseled Regarding: Diagnosis, Lab results, Need for follow-up, When/why to return to ED Discharge & Departure Primary Impression: Chest pain Chest pain type: unspecified Qualified Code: R07.9 - Chest pain, unspecified Additional Impressions: History of coronary artery disease Pre-syncope H/O heart artery stent Disposition: Home Discharge Condition All VS Reviewed: Yes Condition: Stable Patient Instructions: Chest Pain (ED) Additional Instructions: Thank you for seeking care at the emergency room. It is difficult for us to make definitive diagnoses in the ED but we believe that you are experiencing . Our primary goal today in the Emergency Department was to evaluate you for any life-threatening conditions. Your evaluation was reassuring. You will be discharged with a prescription for . You should follow-up with your primary doctor in the next week. You should return to the Emergency Department immediately if you develop fevers, vomiting, cough, shortness of breath, chest pain, lightheadedness, weakness or any other concerning signs or symptoms. Thank you for letting us partake in your care today. Referrals: Santiago Funez MD (PCP) Cindy Attestation Portions of this note were transcribed by Kia Michael. I, Dr. Meyer personally performed the history, physical exam and medical decision-making; I reviewed and confirmed the accuracy of the information in the transcribed note. Signed by: Cindy Davidsno, 07/09/17 copies to: Santiago Funez MD, Beck O MD Jul 09, 2017 15:40 Cristina Michael Jul 09, 2017 15:49
[2017-07-09 16:04] LABS: BASOPHILS % (AUTO) 0.4 % (0-3); EOSINOPHILS % (AUTO) 0.8 % (0-5); Mean Corpuscular Hemoglobin 29.6 pg (27.0-35.0); Mean Corpuscular Volume 86.4 fL (81-100); NEUTROPHILS % (AUTO) 72.7 % (40-74); Platelet Count 187 bil/L (150-400)
[2017-07-09 16:29] LABS: TROPONIN T < 0.010 ug/L (0.0-0.011)
[2017-07-09 16:39] LABS: Magnesium 1.9 mg/dL (1.6-2.6)
[2017-07-09] MEDS ORDERED: Insulin Human REGular-Omnicell 100 Unit/mL SUBQ ONE ×2 (16:50→18:05)
[2017-07-09] MEDS ORDERED: 0.9% Sodium Chloride 1,000 ML IV ONE (16:50)
--- NOTE | 2017-07-09 17:44 | DRSVH ---
PROCEDURE: X-RAY CHEST, TWO VIEWS ([id number]) INDICATIONS: Chest pain. TECHNIQUE: 2 views of the chest were acquired. COMPARISON: [facility], CR, XR CHEST 1VW (PORTABLE), 07/08/2017, 2:02. FINDINGS: Surgical changes and devices: None. Lungs and pleura: No pleural effusions or pneumothorax. Lungs are clear. Mediastinum: Mediastinal contours are normal. Heart size is normal. Bones and chest wall: No suspicious bony abnormalities. Soft tissues appear unremarkable. IMPRESSION: No acute cardiopulmonary disease process. Dictated by: Cindy Gross MD, PhD on 07/09/2017 at 17:41 Approved by: Cindy Gross MD, PhD on 07/09/2017 at 17:42
[2017-07-09 18:00] VITALS: BP 122/65; PULSE 59; RESP 16; O2SAT 96
[2017-07-09 22:10] VITALS: BP 101/57; PULSE 74; RESP 19
== END 2017-07-09 22:11 | disposition home or self-care (01) ==
LOC: SED 15:21 → EDUNIT# 15:21 → EDBD 15:21 → SED 22:11
DX: R07.9 Chest pain, unspecified (principal); R55 Syncope and collapse; I11.0 Hypertensive heart disease with heart failure; E11.59 Type 2 diabetes mellitus with other circulatory complications; I50.9 Heart failure, unspecified; I25.2 Old myocardial infarction; I25.10 Atherosclerotic heart disease of native coronary artery without angina pectoris; J44.9 Chronic obstructive pulmonary disease, unspecified; E11.40 Type 2 diabetes mellitus with diabetic neuropathy, unspecified; F17.200 Nicotine dependence, unspecified, uncomplicated; Z86.73 Personal history of transient ischemic attack (TIA), and cerebral infarction without residual deficits; Z95.5 Presence of coronary angioplasty implant and graft; Z96.619 Presence of unspecified artificial shoulder joint; Z90.49 Acquired absence of other specified parts of digestive tract; Z98.890 Other specified postprocedural states; Z79.82 Long term (current) use of aspirin; Z79.4 Long term (current) use of insulin; Z88.0 Allergy status to penicillin; Z88.5 Allergy status to narcotic agent; Z88.8 Allergy status to other drugs, medicaments and biological substances; Z91.030 Bee allergy status; Z91.048 Other nonmedicinal substance allergy status
CPT/HCPCS: 36415; 71020; 80053; 82948; 83735; 84484; 85025; 93005; 96361; 96372; 96374; 96376; 99285; J1815; J2270; J7030

== ENCOUNTER 2017-07-10 18:07 | Emergency (ER) | payer OTHER ==
[~2017-07-10] VITALS: Ht 172.7 cm; Wt 118.2 kg
[2017-07-10 18:12] VITALS: BP 92/57; PULSE 84; RESP 18; O2SAT 98
[2017-07-10 19:00] LABS: BASOPHILS % (AUTO) 0.3 % (0-3); EOSINOPHILS % (AUTO) 7.6 % (0-5); MONOCYTES % (AUTO) 5.5 % (4-12); Mean Corpuscular Hemoglobin 29.5 pg (27.0-35.0); Mean Corpuscular Volume 84.4 fL (81-100); NEUTROPHILS % (AUTO) 63.4 % (40-74); Platelet Count 205 bil/L (150-400)
[2017-07-10 19:26] LABS: TROPONIN T < 0.010 ug/L (0.0-0.011)
[2017-07-10] MEDS ORDERED: 0.9% Sodium Chloride 1,000 ML IV ONE (20:22)
[2017-07-10] MEDS ORDERED: Ondansetron 2 mg/mL 2 mL Inj IVPUSH ONE (20:25)
--- NOTE | 2017-07-10 20:51 | DRSVH ---
PROCEDURE: X-RAY CHEST ONE VIEW, PORTABLE ([id number]) INDICATIONS: chest pain TECHNIQUE: One view of the chest was acquired. COMPARISON: None. FINDINGS: Surgical changes and devices: None. Lungs and pleura: No pleural effusions or pneumothorax. Lungs are clear. Mediastinum: Mediastinal contours appear normal. Heart size is normal. Bones and chest wall: No suspicious bony lesions. Overlying soft tissues appear unremarkable. IMPRESSION: Normal for age, source of chest pain is not found. Dictated by: Mauricio Cruz M.D. on 07/10/2017 at 20:49 Approved by: Mauricio Cruz M.D. on 07/10/2017 at 20:49
--- NOTE | 2017-07-10 21:12 | ED.REPORT ---
HPI-Chest Pain 40 and Over Date of Service Jul 10, 2017 ED Provider: Girihs Burt MD The pt is a 47 y/o male with a history of CHF (on Plavix and ASA), CAD, multiple cardiac stents, COPD, diabetes, unstable angina and frequent ED visits for chest pain who presents to the ED complaining of intermittent chest pain, onset 6 hours ago. The pt was getting ready to go to a store when he suddenly became dizzy and experienced chest cramping. He sat down and took a couple of deep breaths which helped temporarily. The pain returned again. During the third episode, his chest pain radiated to his left arm. He became diaphoretic, short of breath, lightheaded and almost passed out. He also had an episode of vomiting. In the ED, the pt reports extreme fatigue and weakness. The pt was seen at the ED yesterday for the same complaint. His labs were unremarkable, including negative troponin. His ECG and chest X-ray were also normal. The pt has also had multiple stress tests which always result normal. His recent echocardiogram two months ago showed an ejection fracture of 55-60%. Nursing Notes Stated Complaint: CHEST PAIN,SOB,DIZZY Chief Complaint: Chest Pain Nursing Notes Reviewed: Yes Allergies: Coded Allergies: Honey Bee (Verified Allergy, Severe, anaphylaxis, 07/10/17) Penicillins (Verified Allergy, Severe, SWELLING, HIVES, ITCHING, 07/10/17) TAPE (Verified Allergy, Mild, blisters, 07/10/17) levetiracetam (Verified Allergy, Unknown, 07/10/17) "Sleep all day long" hydromorphone (Verified Adverse Reaction, Intermediate, HALLUCINATIONS, "HIGH", 07/10/17) sumatriptan (Verified Adverse Reaction, Intermediate, CONVULSIONS, SHAKES , 07/10/17) Scheduled Allopurinol (Allopurinol) 300 Mg Tablet 300 MG PO HS Aspirin (Aspirin) 81 Mg Tablet 81 MG PO QAM Atorvastatin (Lipitor) 80 Mg Tablet 80 MG PO HS Clopidogrel (Clopidogrel) 75 Mg Tablet 75 MG PO QAM Doxazosin (Cardura) 4 Mg Tablet 8 MG PO QAM Finasteride (Finasteride) 5 Mg Tablet 5 MG PO QAM Fluoxetine (Fluoxetine) 40 Mg Capsule 40 MG PO QAM Furosemide (Furosemide) 40 Mg Tablet 40 MG PO QAM Gabapentin (Gabapentin) 600 Mg Tablet 600 MG PO BID Insulin Glargine (Lantus U100 Insulin Vial) 100 Unit/Ml Vial 80 UNIT SUBQ BID Insulin Regular, Human (HUMulin-R U100 Insulin Vial) 100 Unit/1 Ml Vial 40 UNIT SUBQ BIDWM BREAKFAST AND DINNER Insulin Regular, Human (HUMulin-R U100 Insulin Vial) 100 Unit/1 Ml Vial 2-20 UNIT SUBQ ACHS SLIDING SCALE Isosorbide MN ER (Isosorbide MN ER) 60 Mg Tab.er.24h 60 MG PO QAM Lisinopril (Lisinopril) 2.5 Mg Tablet 2.5 MG PO QAM Metoprolol Succinate ER (Metoprolol Succinate ER) 25 Mg Tab.er.24h 12.5 MG PO QAM Ondansetron (Ondansetron) 8 Mg Tablet 8 MG PO QID Pantoprazole DR (Pantoprazole DR) 40 Mg Tablet.dr 40 MG PO QAM Potassium Chloride ER (Potassium Chloride ER) 20 Meq Tablet.er 20 MEQ PO QAM TAKE WITH FOOD Tamsulosin ER (Tamsulosin ER) 0.4 Mg Cap.er.24h 0.4 MG PO DAILY Scheduled PRN Albuterol HFA (Proair HFA) 8.5 Gm Hfa.aer.ad 2 PUFFS INHALATION QID PRN PRN For Shortness of Breath Ibuprofen (Ibuprofen) 200 Mg Capsule 800 MG PO DIRECTED PRN PRN For Pain Naproxen (Naproxen) 375 Mg Tablet 375 MG PO BID PRN PRN For Pain Nitroglycerin SL (Nitroglycerin SL) 0.4 Mg Tab.subl 0.4 MG SL Q5MIN PRN PRN For Chest Pain Tramadol (Ultram) 50 Mg Tablet 50 MG PO TID PRN PRN For Mild Pain oxyCODONE (oxyCODONE) 10 Mg Tablet 10 MG PO Q4H PRN PRN For Pain General Time Seen by MD: 21:07 Chief Complaint Chest pain Hx Obtained From: Patient Arrived By: Walk-in Sudden in Onset?: Yes Onset Occurred: 5 - 8 hours ago Symptom Duration: Intermittent Location: : Chest left Quality: Painful Radiation: : Arm left Severity: Current: Moderate Severity: Maximum: Moderate Recent Healthcare: Recent doctor visit, Recent hospitalization Similar Sx Previous: Yes Past Medical History Past Medical History Notes: [employer] 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 [place], [place] Patient states has had "nine stents" placed at [facility] Left AMA For CP 08/01/2016, 08/04/16, and 08/26/16 Multiple ED visits for CP, admitted for chest pain 11/21/2016 and 04/20/2017 with hospitalist diagnosis of narcotic seeking behavior Multiple ED visits in 2017 - See last admit w/cardiology consultatation 04/2017 Last admit 05/17/17 - Unstable angina Past Medical History Unstable angina CAD - multiple stents, cardiac caths 02/14, 03/12, 04/11, ad 04/17 w/stent placed to proximal LAD overlapping prior stent and "plavix non-responder" Syncope Type two diabetes with neuropathy Chronic back and leg pain Lower extremity DVT "years ago" per patient, details unclear History of migraines BPH Kidney Stones On Warfarin and Plavix Seizure Spinal meningitis [place] 2014 Concern for TIA October 2016, MRI/MRA negative Reports: COPD, Congestive heart failure, Hypertension, Stroke Reports: Heroin use Past Surgical History Shoulder surgery (joint replacement) Left knee surgery Ganglion cyst in right hand Cardiac stents ("x9" - at [facility]) Reports: Cholecystectomy Family History Both of the patient's parents are still alive Smoking History Current Every Day Smoker Social History Alcohol Use: Denies alcohol use Drug Use: Denies drug use Other Social History: Good social support, Frequent ED visitor, , Local resident 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 Physical Exam Initial Vital Signs Vital Signs (First) Date Time Temp Pulse Resp B/P Pulse Ox O2 Delivery O2 Flow Rate FiO2 07/10/17 18:12 37.0 84 18 92/57 98 Room Air Initial VS: Reviewed, Vital signs abnormal Head / Eyes: Atraumatic, Normocephalic Neck: Supple, Non-tender, Full range of motion Extremities: Vascular intact, Neuro intact, No swelling, No tenderness Skin: Warm, Dry, No cyanosis Neurologic: Alert, Oriented, Nonfocal General/Constitutional: Awake, Alert, No acute distress, Well appearing, Cooperative Appearance / Presentation: Positive: Obese Respiratory / Chest: Atraumatic, Breath sounds NL, Breath sounds = bilat, No respiratory distress, No rales, No rhonchi, No wheezing Cardiovascular: Heart rate NL, Regular rhythm, Heart sounds NL, No gallop, No murmurs, No rubs No edema Abdomen: Atraumatic, Soft, Non-tender, No guarding, No rebound Back: Atraumatic, Full range of motion, Painless range of motion Well healing upper back scar Upper Extremity / MS: Atraumatic, Full range of motion, No swelling, Non-tender , No erythema, No deformity, Neurologic intact, Vascular intact Well healing left shoulder scar Interpretation & Diagnostics Lab Results Interpretation Result Diagram: 07/10/17 1857 07/10/17 1857 Test 07/10/17 18:57 07/10/17 22:17 White Blood Count 9.7th/mm3 (3.8-10.1) Red Blood Count 5.18mil/mm3 (4.40-5.80) Hemoglobin 15.3g/dL (13.8-17.2) Hematocrit 43.7% (41.0-50.0) Mean Corpuscular Volume 84.4fL (81-100) Mean Corpuscular Hemoglobin 29.5pg (27.0-35.0) Mean Corpuscular Hemoglobin Concent 35.0% (32.0-37.0) Red Cell Distribution Width 12.9% (12.3-15.4) Platelet Count 205bil/L (150-400) Neutrophils (%) (Auto) 63.4% (40-74) Lymphocytes (%) (Auto) 22.5% (14-46) Monocytes (%) (Auto) 5.5% (4-12) Eosinophils (%) (Auto) 7.6% (0-5) Basophils (%) (Auto) 0.3% (0-3) Sodium Level 140mEq/L (134-144) Potassium Level 3.9mEq/L (3.5-5.2) Chloride Level 104mEq/L (97-108) Carbon Dioxide Level 16mmol/L (18-29) Blood Urea Nitrogen 21mg/dL (6-24) Creatinine 0.94mg/dL (0.76-1.27) Estimat Glomerular Filtration Rate 91mL/min (>59) Glucose Level 190mg/dL (60-99) Calcium Level 9.1mg/dL (8.5-10.1) Magnesium Level 2.0mg/dL (1.6-2.6) Total Bilirubin 0.2mg/dL (0.0-1.2) Aspartate Amino Transf (AST/SGOT) 14U/L (0-50) Alanine Aminotransferase (ALT/SGPT) 11U/L (0-44) Alkaline Phosphatase 128U/L (25-150) Troponin T < 0.010ug/L (0.0-0.011) Total Protein 7.6g/dL (6.4-8.4) Albumin 3.7g/dL (3.4-5.0) D-Dimer 0.59mg/L FEU (<0.50) Lab values outside NL range: no clinical significance. Lab Results Interpretation: D-dimer is mildly elevated. Troponins negative. ECG Interpretation ECG Interpretation: Normal sinus rhythm. Rate 69. Probable left atrial enlargement. Time: 20:29 Interpreted by: ED physician X-Ray Chest Interpretation Chest Xray Interpretation: IMPRESSION: Normal for age, source of chest pain is not found. Dictated by: Mauricio Cruz M.D. on 07/10/2017 at 20:49 Approved by: Mauricio Cruz M.D. on 07/10/2017 at 20:49 View: Portable, 1 view Interpretation / Wet Read by: Interpret - Radiologist CT Chest Interpretation No evidence of pulmonary embolism or aortic dissection. Cardiomegaly with vascular congestion. Mild bronchitic thickening bilaterally, can be seen with reactive airways disease, acute or chornic bronchitis, or interstitial edema. Signed by Dr. Jovana Sosa 07/11/17 00:59 Study type: CT pulm angiogram Interpretation / Wet Read by: Interpret - Radiologist Re-Eval/Medical Decision Med Decision/Clinical Course Billi 7-year-old male with known coronary artery disease presents with complaint of chest pain and near syncope on several occasions today. He has been seen on the last 2 consecutive days here in the emergency room with negative workup. He is quite interested in morphine for his pain. His troponin was negative, making a total of 3 negative troponins in the last 24+ hours. D- dimer was mildly elevated. CT chest angiogram shows some increased fluid and possible bronchitis but no evidence of more serious findings. He will be discharged home. He is instructed to double his dose of Lasix from 40-80 mg for the next 5 days. He will follow-up with his regular doctor for further evaluation and treatment. Source of Hx: Old records Time of Eval: 22:00 Re-Evaluation/Progress Note: Rechecked pt. Discussed lab and imaging results. All questions answered. Time of Eval: 22:59 Re-Evaluation/Progress Note: Rechecked pt. Discussed the plan to do a CT. The pt understands and agrees with the plan. All questions answered. Time of Eval: 02:27 Patient Status: Condition improved Re-Evaluation/Progress Note: Rechecked pt. Discussed lab results, imaging results, diagnosis and plan to discharge. Pt understands and agrees with the plan. F/U instruction and RTER warning given. All questions addressed. Counseled Regarding: Diagnosis, Lab results, Need for follow-up, When/why to return to ED Discharge & Departure Primary Impression: Chest pain with low risk for cardiac etiology Additional Impression: Fluid overload Hypervolemia type: unspecified Qualified Code: E87.70 - Fluid overload, unspecified Disposition: Home Discharge Condition All VS Reviewed: Yes Condition: Stable Patient Instructions: Chest Pain (ED) Additional Instructions: There is no evidence at this time of heart attack, collapsed lung, pneumonia, blood clot in the lung, or other serious heart or lung issues. There is some fluid overload the need to increase your Lasix from 40-80 mg for 5 days. There is some inflammation associated with the fluid overload or possibly a viral bronchitis. Antibiotics won't help this. Follow-up with your regular doctor as needed for persistent symptoms. Taking off some of the fluid should improve your breathing and discomfort. Daily weights for a few days and record them for your doctor. Referrals: Santiago Funez MD (PCP) Scribe Attestation Portions of this note were transcribed by Shivam Eller. I,, personally performed the history,physical exam and medical decision-making;I reviewed and confirmed the accuracy of the information in the transcribed note. Signed by Cindy Oleary. 07/10/17 copies to: Santiago Funez MD, Howard L MD Jul 10, 2017 21:12 Shivam Eller Jul 10, 2017 21:29
[2017-07-10 21:24] VITALS: BP 96/58; PULSE 66; RESP 16; O2SAT 93
[2017-07-10 23:30] VITALS: BP_SYST 101; BP_SYST 111; BP_SYST 91; BP_DIAS 63; BP_DIAS 69; BP_DIAS 74
[2017-07-11 03:11] VITALS: BP_SYST 114; BP_SYST 145; BP_DIAS 63; BP_DIAS 77; PULSE 60; PULSE 97; RESP 15; RESP 16; O2SAT 95; O2SAT 98
--- NOTE | 2017-07-11 07:58 | DRSVH ---
PROCEDURE: CT ANGIO CHEST PULMONARY EMBOLISM ([id number]) INDICATIONS: chest pain, syncope, elev dimer TECHNIQUE: After the administration of intravenous contrast, 2 mm thick sections acquired from the pulmonary api judith to the posterior costophrenic angles. 3-dimensional maximum intensity projection (MIP) coronal a nd sagittal reformats were then acquired through the thorax. For radiation dose reduction, the follo wing was used: automated exposure control, adjustment of mA and/or kV according to patient size. COMPARISON: [facility], CT, CT KUB, 07/04/2017, 22:05. FINDINGS: Image quality: Excellent. Pulmonary arteries: Pulmonary arteries are normal in size, and demonstrate no intraluminal filling d efects to suggest central pulmonary embolism. Lungs and pleura: Dependent atelectasis left greater than right otherwise the lungs are clear. No pl eural effusions or pneumothorax. Central and peripheral airways are patent. Mediastinum: Right atrium and right ventricle are prominent. Overall heart size is at the upper limit s of normal. No pericardial effusion. No mediastinal or hilar adenopathy. Thoracic aorta is normal in caliber and enhancement. Esophagus is normal in caliber, without hiatal hernia. Bones and chest wall: No suspicious bony lesions. Ribs and thoracic spine appear intact throughout. Thyroid gland is grossly normal. No axillary or supraclavicular adenopathy. Abdomen: Visualized upper abdominal solid organs appear normal in the early arterial phase of enhanc ement. IMPRESSION: 1. No CT evidence of acute pulmonary emboli. 2. Likely enlarged right atrium and ventricle. 3. Dependent atelectasis left greater than right. 4. There are no urgent discrepancies with the preliminary report. Dictated by: Dereck Cifuentes M.D. on 07/11/2017 at 7:51 Approved by: Dereck Cifuentes M.D. on 07/11/2017 at 7:57
== END 2017-07-11 03:12 | disposition home or self-care (01) ==
LOC: SED 18:07
DX: R07.9 Chest pain, unspecified (principal); E87.70 Fluid overload, unspecified; I11.0 Hypertensive heart disease with heart failure; E11.59 Type 2 diabetes mellitus with other circulatory complications; I50.9 Heart failure, unspecified; I25.10 Atherosclerotic heart disease of native coronary artery without angina pectoris; I25.2 Old myocardial infarction; J44.9 Chronic obstructive pulmonary disease, unspecified; E11.40 Type 2 diabetes mellitus with diabetic neuropathy, unspecified; G43.909 Migraine, unspecified, not intractable, without status migrainosus; F19.90 Other psychoactive substance use, unspecified, uncomplicated; F17.200 Nicotine dependence, unspecified, uncomplicated; Z87.442 Personal history of urinary calculi; Z86.73 Personal history of transient ischemic attack (TIA), and cerebral infarction without residual deficits; Z95.5 Presence of coronary angioplasty implant and graft; Z90.49 Acquired absence of other specified parts of digestive tract; Z96.619 Presence of unspecified artificial shoulder joint; Z98.890 Other specified postprocedural states; Z79.01 Long term (current) use of anticoagulants; Z79.82 Long term (current) use of aspirin; Z79.4 Long term (current) use of insulin; Z88.0 Allergy status to penicillin; Z88.8 Allergy status to other drugs, medicaments and biological substances; Z91.030 Bee allergy status; Z91.048 Other nonmedicinal substance allergy status
CPT/HCPCS: 36415; 71010; 71275; 80053; 83735; 84484; 85025; 85378; 93005; 96374; 96375; 96376; 99285; J2270; J2405; J7030; Q9967

== ENCOUNTER 2017-07-11 18:51 | Emergency (ER) | payer OTHER ==
[~2017-07-11] VITALS: Ht 172.7 cm; Wt 118.2 kg
[2017-07-11] VITALS (7 sets, daily range): BP systolic 80–115; BP diastolic 48–72; PULSE 71–96; RESP 16–20; O2SAT 94–98
[2017-07-11 19:39] LABS: BASOPHILS % (AUTO) 0.5 % (0-3); EOSINOPHILS % (AUTO) 1.3 % (0-5); MONOCYTES % (AUTO) 7.9 % (4-12); Mean Corpuscular Hemoglobin 29.6 pg (27.0-35.0); Mean Corpuscular Volume 86.7 fL (81-100); Platelet Count 210 bil/L (150-400)
--- NOTE | 2017-07-11 19:45 | ED.REPORT ---
HPI-Abd Pain F Under 40 Date of Service Jul 11, 2017 ED Provider: Kelli Gonzalez MD Pt is a 47 year old male with a hx of CAD, HTN, CA, stents, DM II, frequent kidney stones, CHF, and stroke on Warfarin presenting to the ED complaining of chest pain onset earlier today. He also reports increased fatigue, weakness, headache, diffuse numbness, and abdominal pain (it felt like his stomach would explode). He states that he felt fine yesterday after he was discharged from the hospital, but then today he felt an ache in the middle left of his chest, and felt nauseated, dizzy (making him collapse), and diaphoretic lasting for a couple minutes, so he went and laid down. When he woke up he felt okay, then at 1500 it started again as a constant sharp pain. He took Nitro x3 and then x2 before he came here. The pt has been seen multiple times in the last week for similar symptoms. Most recent echo from 05/14/2017 shows an EF of 55-60%. Nursing Notes Stated Complaint: CHEST PAIN Chief Complaint: Chest Pain Nursing Notes Reviewed: Yes Allergies: Coded Allergies: Honey Bee (Verified Allergy, Severe, anaphylaxis, 07/10/17) Penicillins (Verified Allergy, Severe, SWELLING, HIVES, ITCHING, 07/10/17) TAPE (Verified Allergy, Mild, blisters, 07/10/17) levetiracetam (Verified Allergy, Unknown, 07/10/17) "Sleep all day long" hydromorphone (Verified Adverse Reaction, Intermediate, HALLUCINATIONS, "HIGH", 07/10/17) sumatriptan (Verified Adverse Reaction, Intermediate, CONVULSIONS, SHAKES , 07/10/17) Scheduled Allopurinol (Allopurinol) 300 Mg Tablet 300 MG PO HS Aspirin (Aspirin) 81 Mg Tablet 81 MG PO QAM Atorvastatin (Lipitor) 80 Mg Tablet 80 MG PO HS Clopidogrel (Clopidogrel) 75 Mg Tablet 75 MG PO QAM Doxazosin (Cardura) 4 Mg Tablet 8 MG PO QAM Finasteride (Finasteride) 5 Mg Tablet 5 MG PO QAM Fluoxetine (Fluoxetine) 40 Mg Capsule 40 MG PO QAM Furosemide (Furosemide) 40 Mg Tablet 40 MG PO QAM Gabapentin (Gabapentin) 600 Mg Tablet 600 MG PO BID Insulin Glargine (Lantus U100 Insulin Vial) 100 Unit/Ml Vial 80 UNIT SUBQ BID Insulin Regular, Human (HUMulin-R U100 Insulin Vial) 100 Unit/1 Ml Vial 40 UNIT SUBQ BIDWM BREAKFAST AND DINNER Insulin Regular, Human (HUMulin-R U100 Insulin Vial) 100 Unit/1 Ml Vial 2-20 UNIT SUBQ ACHS SLIDING SCALE Isosorbide MN ER (Isosorbide MN ER) 60 Mg Tab.er.24h 60 MG PO QAM Lisinopril (Lisinopril) 2.5 Mg Tablet 2.5 MG PO QAM Metoprolol Succinate ER (Metoprolol Succinate ER) 25 Mg Tab.er.24h 12.5 MG PO QAM Ondansetron (Ondansetron) 8 Mg Tablet 8 MG PO QID Pantoprazole DR (Pantoprazole DR) 40 Mg Tablet.dr 40 MG PO QAM Potassium Chloride ER (Potassium Chloride ER) 20 Meq Tablet.er 20 MEQ PO QAM TAKE WITH FOOD Tamsulosin ER (Tamsulosin ER) 0.4 Mg Cap.er.24h 0.4 MG PO DAILY Scheduled PRN Albuterol HFA (Proair HFA) 8.5 Gm Hfa.aer.ad 2 PUFFS INHALATION QID PRN PRN For Shortness of Breath Ibuprofen (Ibuprofen) 200 Mg Capsule 800 MG PO DIRECTED PRN PRN For Pain Naproxen (Naproxen) 375 Mg Tablet 375 MG PO BID PRN PRN For Pain Nitroglycerin SL (Nitroglycerin SL) 0.4 Mg Tab.subl 0.4 MG SL Q5MIN PRN PRN For Chest Pain Tramadol (Ultram) 50 Mg Tablet 50 MG PO TID PRN PRN For Mild Pain oxyCODONE (oxyCODONE) 10 Mg Tablet 10 MG PO Q4H PRN PRN For Pain General Time Seen by MD: 19:04 Chief Complaint Other (Chest pain) Hx Obtained From: Patient Arrived By: Walk-in Sudden in Onset?: No Onset Occurred: 9 - 12 hours ago Symptom Duration: Since onset Quality: Aching, Painful Severity: Current: Moderate Severity: Maximum: Severe Recent Healthcare: Recent doctor visit, Recent hospitalization Similar Sx Previous: Yes Past Medical History Past Medical History Notes: 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 Ashraf, [place], [place] Multiple ED visits for CP, admitted for chest pain 11/21/2016 and 04/20/2017 with hospitalist diagnosis of narcotic seeking behavior Past Medical History Unstable angina CAD - multiple stents, cardiac caths 02/14, 03/12, 04/11, ad 04/17 w/stent placed to proximal LAD overlapping prior stent and "plavix non-responder" Syncope Type two diabetes with neuropathy Chronic back and leg pain Lower extremity DVT "years ago" per patient, details unclear History of migraines BPH Kidney Stones On Warfarin and Plavix Seizure Spinal meningitis CA 2014 Concern for TIA October 2016, MRI/MRA negative Reports: COPD, Congestive heart failure, Hypertension, Stroke Reports: Heroin use Past Surgical History Shoulder surgery (joint replacement) Left knee surgery Ganglion cyst in right hand Cardiac stents ("x9" - at Prov) Reports: Cholecystectomy Family History Both of the patient's parents are still alive Smoking History Current Every Day Smoker Social History Alcohol Use: Denies alcohol use Drug Use: Denies drug use Other Social History: Good social support, Frequent ED visitor, , Local resident 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 Skin: Reports Diaphoresis Neurologic: Reports: Dizziness, Headache, Numbness Physical Exam Initial Vital Signs Vital Signs (First) Date Time Temp Pulse Resp B/P Pulse Ox O2 Delivery O2 Flow Rate FiO2 07/11/17 18:57 36.6 86 16 107/72 97 Room Air Initial VS: Reviewed Head / Eyes: Atraumatic, Normocephalic, PERRL ENT: Mucous membranes moist, Conjunctiva normal, No scleral icterus Skin: Warm, Dry, No cyanosis Neurologic: Alert, Oriented, Nonfocal Psychiatric: Mood/affect normal, Behavior normal, Normal thought content General/Constitutional: Awake, Alert Respiratory / Chest: Atraumatic, Breath sounds NL, Breath sounds = bilat, No respiratory distress Cardiovascular: Heart rate NL, Regular rhythm, Heart sounds NL, No gallop, No murmurs, No rubs Abdomen: Atraumatic, Soft, Non-tender Back: Atraumatic, Inspection NL Interpretation & Diagnostics Lab Results Interpretation Result Diagram: 07/11/17191207/11/171912 Test 07/11/17 19:13 07/11/17 20:41 07/11/17 23:14 White Blood Count 8.2th/mm3 (3.8-10.1) Red Blood Count 4.80mil/mm3 (4.40-5.80) Hemoglobin 14.2g/dL (13.8-17.2) Hematocrit 41.6% (41.0-50.0) Mean Corpuscular Volume 86.7fL (81-100) Mean Corpuscular Hemoglobin 29.6pg (27.0-35.0) Mean Corpuscular Hemoglobin Concent 34.1% (32.0-37.0) Red Cell Distribution Width 13.0% (12.3-15.4) Platelet Count 210bil/L (150-400) Neutrophils (%) (Auto) 66.0% (40-74) Lymphocytes (%) (Auto) 24.2% (14-46) Monocytes (%) (Auto) 7.9% (4-12) Eosinophils (%) (Auto) 1.3% (0-5) Basophils (%) (Auto) 0.5% (0-3) Sodium Level 134mEq/L (134-144) Potassium Level 4.3mEq/L (3.5-5.2) Chloride Level 97mEq/L (97-108) Carbon Dioxide Level 19mmol/L (18-29) Blood Urea Nitrogen 19mg/dL (6-24) Creatinine 0.98mg/dL (0.76-1.27) Estimat Glomerular Filtration Rate 86mL/min (>59) Glucose Level 491mg/dL (60-99) Calcium Level 8.8mg/dL (8.5-10.1) Magnesium Level 2.0mg/dL (1.6-2.6) Total Bilirubin 0.3mg/dL (0.0-1.2) Aspartate Amino Transf (AST/SGOT) 15U/L (0-50) Alanine Aminotransferase (ALT/SGPT) 12U/L (0-44) Alkaline Phosphatase 129U/L (25-150) Total Protein 7.1g/dL (6.4-8.4) Albumin 3.3g/dL (3.4-5.0) Hold Pereyra Top Tube Received (Received) Hold Urine Received (Received) Troponin T < 0.010ug/L (0.0-0.011) ECG Interpretation ECG Interpretation: Low voltage, precordial leads. Time: 19:10 Interpreted by: ED physician Normal ECG Interpretation: Normal rate (73), Normal sinus rhythm X-Ray Chest Interpretation Chest Xray Interpretation: IMPRESSION: Acute disease is not appreciated in the upright portable chest. Dictated by: Thomas Tejada M.D. on 07/11/2017 at 19:50 View: Portable, 1 view Interpretation / Wet Read by: Interpret - Radiologist Re-Eval/Medical Decision Med Decision/Clinical Course Med Decision/Clinical Course: 47-year-old female male with extensive past medical history including cardiac disease presents to the emergency department with ongoing chest pain. Initially patient reported chest pain began today, however throughout his stay in the ER he reported that his chest pain is actually been constant for the past month. Patient was seen in the emergency department one day ago, had troponin EKG elevated d-dimer with CT angiogram of his chest performed without explanation of his chest pain. Patient has had several visits to the emergency department recently as well as an observation admission with serial troponins. On my exam today patient had market orthostasis and reportedly took extra Lasix as instructed, this may have overdone it for him, take returned IV fluids to him. I do not treat him with further nitroglycerin given this. Given the chronicity of his chest pain I do not suspect an acute process today. Unfortunately patient became quite dissatisfied in the emergency department as I did not give him more medications for pain control. I reported to him that I was uncomfortable with giving additional doses of morphine given his lightheadedness and low blood pressure was standing and did not feel that this was an appropriate treatment for him currently. He was unwilling to stay for further troponin evaluation or for me to call his process design chemical engineer for further recommendations for possible transfer to the hospital where his process design chemical engineer is paced. Re-Evaluation/Progress #1: Time of Eval: 23:01 Patient Status: Condition improved Re-Evaluation/Progress Note: Pt states that he does not want a second troponin drawn if he will have to stay for another hour without receiving pain medication. Re-Evaluation/Progress #2: Time of Eval: 23:13 Re-Evaluation/Progress Note: Pt has been repeatedly requesting more pain medications throughout his ED stay. Discussed EKG, x ray and lab results. Discussed the danger of administering certain pain medications, and informed the pt why we gave him the medications we did. Discussion in prescense of patient's family Re-Evaluation/Progress #3: Time of Eval: 23:22 Re-Evaluation/Progress Note: We discussed that his sx have been ongoing for the past month, he has seen his doctors in the clinic, including his process design chemical engineer. Offered to call pt's process design chemical engineer to ask if they woud like him to be admitted at their hospital for possible intervention. Discussed that I didn't think it was safe given his dizziness to give him narcotics. He does not wish to wait for me to call his process design chemical engineer and does not wish to wait for his paperwork in the emergency department. Pt reports that his process design chemical engineer knows about his symptoms and is aware of his visits to the ER. Counseled Regarding: Diagnosis, Lab results, Need for follow-up, When/why to return to ED Discharge & Departure Primary Impression: Chest pain Chest pain type: unspecified Qualified Code: R07.9 - Chest pain, unspecified Disposition: Home Discharge Condition All VS Reviewed: Yes Condition: Improved Patient Instructions: Chest Pain (ED) Additional Instructions: Return to the emergency department if you develop any new or worsening symptoms. It is imperative that you talk to your process design chemical engineer about your visit to the emergency department. We offered to do this for you this evening in the ER but you were unwilling to wait. Please also talk with your primary care doctor about your ongoing pain. Referrals: Santiago Funez MD (PCP) Moshe Ashraf MD Attestation Portions of this note were transcribed by Nadine Strange. I, Dr. Gonzalez, personally performed the history, physical exam and medical decision-making; I reviewed and confirmed the accuracy of the information in the transcribed note. Signed by: Cindy Moreland, 07/11/17. copies to: Santiago Funez MD; Moshe Ashraf MD, Sarah C MD Jul 11, 2017 19:45 NADINE STRANGE Jul 11, 2017 20:10
--- NOTE | 2017-07-11 19:54 | DRSVH ---
PROCEDURE: X-RAY CHEST ONE VIEW, PORTABLE ([id number]) INDICATIONS: CP TECHNIQUE: One view of the chest was acquired. COMPARISON: [facility], CR, XR CHEST 2VW, 07/09/2017, 17:16. [facility], CR, XR CHEST 1VW (PORTABLE), 07/10/2017, 20:38. FINDINGS: Surgical changes and devices: shelter monitor leads are seen over the chest. Lungs and pleura: No pleural effusions or pneumothorax. Lungs are clear. Mediastinum: Mediastinal contours appear normal. Heart size is normal. Bones and chest wall: No suspicious bony lesions. Overlying soft tissues appear unremarkable. IMPRESSION: Acute disease is not appreciated in the upright portable chest. Dictated by: Thomas Tejada M.D. on 07/11/2017 at 19:50 Approved by: Thomas Tejada M.D. on 07/11/2017 at 19:52
[2017-07-11 20:09] LABS: TROPONIN T 0.01 ug/L (0.0-0.011)
[2017-07-11] MEDS ORDERED: 0.9% Sodium Chloride 1,000 ML IV ONE (21:05)
[2017-07-11] MEDS ORDERED: LidocaineVisc 2%:Antacid 1:1 10 mL Syringe PO ONE (21:10)
[2017-07-11] MEDS ORDERED: 0.9% Sodium Chloride 500 ML IV ONE (21:10)
== END 2017-07-11 23:50 | disposition home or self-care (01) ==
LOC: SED 18:51
DX: R07.9 Chest pain, unspecified (principal); R53.83 Other fatigue; R53.1 Weakness; R51 Headache; R20.0 Anesthesia of skin; R10.9 Unspecified abdominal pain; R11.0 Nausea; R42 Dizziness and giddiness; R61 Generalized hyperhidrosis; I11.0 Hypertensive heart disease with heart failure; E11.59 Type 2 diabetes mellitus with other circulatory complications; I50.9 Heart failure, unspecified; I25.10 Atherosclerotic heart disease of native coronary artery without angina pectoris; J44.9 Chronic obstructive pulmonary disease, unspecified; E11.40 Type 2 diabetes mellitus with diabetic neuropathy, unspecified; F17.200 Nicotine dependence, unspecified, uncomplicated; Z87.442 Personal history of urinary calculi; Z86.73 Personal history of transient ischemic attack (TIA), and cerebral infarction without residual deficits; Z96.619 Presence of unspecified artificial shoulder joint; Z95.5 Presence of coronary angioplasty implant and graft; Z90.49 Acquired absence of other specified parts of digestive tract; Z98.890 Other specified postprocedural states; Z79.82 Long term (current) use of aspirin; Z79.4 Long term (current) use of insulin; Z79.01 Long term (current) use of anticoagulants; Z88.0 Allergy status to penicillin; Z88.5 Allergy status to narcotic agent; Z88.8 Allergy status to other drugs, medicaments and biological substances; Z91.030 Bee allergy status; Z91.048 Other nonmedicinal substance allergy status
CPT/HCPCS: 36415; 71010; 80053; 83735; 84484; 85025; 93005; 96361; 96374; 99285; J2270; J7040

== ENCOUNTER 2017-07-13 16:30 | Observation (INO) | payer OTHER ==
[~2017-07-13] VITALS: Ht 172.7 cm; Wt 115.6 kg
[2017-07-13 16:42] VITALS: BP 98/61; PULSE 85; RESP 17; O2SAT 97
--- NOTE | 2017-07-13 16:50 | ED.REPORT ---
HPI-General Illness Date of Service Jul 13, 2017 ED Provider: Zackary Domínguez MD The patient is a 47 year old male with a hx of CAD, PR, multiple cardiac stents , CHF, HTN, DM II, COPD, anticoagulated on Warfarin presenting to the ED via EMS complaining of left-sided, non-radiating chest pain onset earlier today. He claims that the chest pain feels like his previous episodes of angina and it is worse with exertion. He reports mild relief with Nitro. The pain started several hours ago and has been persistent with an "aching, pressure-like" pain that is not exacerbated by inspiration. He reports that the pain was so severe today that he fell twice today with "convulsions" on the ground, and he has never had that happen before. There are no other new symptoms reported at this time. He denies fever, chills, nausea, vomiting, vision changes, dysuria, headache, diarrhea, SOB, or wheezing. The patient has been seen multiple times in the last week for similar symptoms. Most recent workup on 07/11 including lab work, EKG and chest X-ray was reassuring and the patient was discharged in good condition. Nursing Notes Stated Complaint: CHEST PAINS Chief Complaint: Chest Pain Nursing Notes Reviewed: Yes Allergies: Coded Allergies: Honey Bee (Verified Allergy, Severe, anaphylaxis, 07/13/17) Penicillins (Verified Allergy, Severe, SWELLING, HIVES, ITCHING, 07/13/17) TAPE (Verified Allergy, Mild, blisters, 07/13/17) levetiracetam (Verified Allergy, Unknown, 07/13/17) "Sleep all day long" hydromorphone (Verified Adverse Reaction, Intermediate, HALLUCINATIONS, "HIGH", 07/13/17) sumatriptan (Verified Adverse Reaction, Intermediate, CONVULSIONS, SHAKES , 07/13/17) Scheduled Allopurinol (Allopurinol) 300 Mg Tablet 300 MG PO HS Aspirin (Aspirin) 325 Mg Tablet 325 MG PO QAM Atorvastatin (Lipitor) 80 Mg Tablet 80 MG PO HS Clopidogrel (Clopidogrel) 75 Mg Tablet 75 MG PO QAM Doxazosin (Cardura) 4 Mg Tablet 8 MG PO HS Finasteride (Finasteride) 5 Mg Tablet 5 MG PO QAM Fluoxetine (Fluoxetine) 40 Mg Capsule 40 MG PO QAM Furosemide (Furosemide) 40 Mg Tablet 40 MG PO QAM Gabapentin (Gabapentin) 600 Mg Tablet 600 MG PO BID Insulin Glargine (Lantus U100 Insulin Vial) 100 Unit/Ml Vial 80 UNIT SUBQ BID Insulin Regular, Human (HUMulin-R U100 Insulin Vial) 100 Unit/1 Ml Vial 40-60 UNIT SUBQ BIDWM BREAKFAST AND DINNER Insulin Regular, Human (HUMulin-R U100 Insulin Vial) 100 Unit/1 Ml Vial 2-20 UNIT SUBQ ACHS SLIDING SCALE Isosorbide MN ER (Isosorbide MN ER) 60 Mg Tab.er.24h 60 MG PO QAM Lisinopril (Lisinopril) 2.5 Mg Tablet 2.5 MG PO QAM Metoprolol Succinate ER (Metoprolol Succinate ER) 25 Mg Tab.er.24h 12.5 MG PO QAM Pantoprazole DR (Pantoprazole DR) 40 Mg Tablet.dr 40 MG PO QAM Potassium Chloride ER (Potassium Chloride ER) 20 Meq Tablet.er 20 MEQ PO QAM TAKE WITH FOOD Tamsulosin ER (Tamsulosin ER) 0.4 Mg Cap.er.24h 0.4 MG PO HS Scheduled PRN Albuterol HFA (Proair HFA) 8.5 Gm Hfa.aer.ad 2 PUFFS INHALATION QID PRN PRN For Shortness of Breath Ibuprofen (Ibuprofen) 200 Mg Capsule 600 MG PO BID PRN PRN For Pain Nicotine 21 mg/24 hr Patch (Nicotine 21 mg/24 hr Patch) 1 Each Patch.dysq 1 PATCH TRANSDERM DAILY PRN PRN NICOTINE WITHDRAWAL Nitroglycerin SL (Nitroglycerin SL) 0.4 Mg Tab.subl 0.4 MG SL Q5MIN PRN PRN For Chest Pain Ondansetron (Ondansetron) 8 Mg Tablet 8 MG PO Q6H PRN PRN For Nausea/Vomiting oxyCODONE (oxyCODONE) 10 Mg Tablet 10 MG PO Q4H PRN PRN For Pain General Time Seen by MD: 16:41 Chief Complaint Chest pain Hx Obtained From: Patient Arrived By: Ambulance Sudden in Onset?: Yes Onset Occurred: 5 - 8 hours ago Location: : Chest Quality: Aching, Pressure Associated with: Reports: Chest pain, Syncope Pertinent Negative: Pt denies other symptoms Recent Healthcare: Recent doctor visit, Recent hospitalization Similar Sx Previous: Yes Past Medical History Past Medical History 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, [place], [place] Multiple ED visits for CP, admitted for chest pain 11/21/2016 and 04/20/2017 with hospitalist diagnosis of narcotic seeking behavior Past Medical History Unstable angina CAD - multiple stents, cardiac caths 02/14, 03/12, 04/11, ad 04/17 w/stent placed to proximal LAD overlapping prior stent and "plavix non-responder" Syncope Type two diabetes with neuropathy Chronic back and leg pain Lower extremity DVT "years ago" per patient, details unclear History of migraines BPH Kidney Stones On Warfarin and Plavix Seizure Spinal meningitis PR 2014 Concern for TIA October 2016, MRI/MRA negative Reports: COPD, Congestive heart failure, Hypertension, Stroke Reports: Heroin use Past Surgical History Shoulder surgery (joint replacement) Left knee surgery Ganglion cyst in right hand Cardiac stents ("x9" - at [facility]) Reports: Cholecystectomy Family History Both of the patient's parents are still alive Smoking History Current Every Day Smoker Social History Alcohol Use: Denies alcohol use Drug Use: Denies drug use Other Social History: Good social support, Frequent ED visitor, , Local resident 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 Physical Exam Nursing note and vitals reviewed. Constitutional: Well-developed, well-nourished. Not diaphoretic. Head: Normocephalic and atraumatic. Mouth/Throat: Oropharynx is clear and moist. No oropharyngeal exudate. Eyes: EOM are normal. Pupils are equal, round, and reactive to light. Neck: Supple, no tracheal deviation. Cardiovascular: Normal rate, regular rhythm. Equal and intact distal pulses throughout. Pulmonary/Chest: Effort normal and breath sounds normal. No respiratory distress. Abdominal: Soft. No distension. There is no tenderness, rebound, or guarding. Bowel sounds present. Musculoskeletal: Range of motion grossly intact, moving all extremities. No edema or tenderness appreciated. Neurological: AOx3. Grossly nonfocal exam. Strength and sensation intact and equal to bilateral upper and lower extremities. Skin: Warm and dry, no rashes or pallor appreciated. Psychiatric: Appropriate mood and affect. Behavior appears normal. Vital Signs Vital Signs Date Time Temp Pulse Resp B/P Pulse Ox O2 Delivery O2 Flow Rate FiO2 07/13/17 20:19 66 18 149/77 100 Room Air 07/13/17 17:29 77 18 147/65 98 Room Air 07/13/17 16:42 85 17 98/61 97 Room Air Initial VS: Reviewed Interpretation & Diagnostics Lab Results Interpretation Result Diagram: 07/13/17 1645 07/13/17 1645 Test 07/13/17 16:45 07/13/17 20:27 White Blood Count 9.6th/mm3 (3.8-10.1) Red Blood Count 4.82mil/mm3 (4.40-5.80) Hemoglobin 14.2g/dL (13.8-17.2) Hematocrit 41.6% (41.0-50.0) Mean Corpuscular Volume 86.3fL (81-100) Mean Corpuscular Hemoglobin 29.5pg (27.0-35.0) Mean Corpuscular Hemoglobin Concent 34.1% (32.0-37.0) Red Cell Distribution Width 12.8% (12.3-15.4) Platelet Count 229bil/L (150-400) Neutrophils (%) (Auto) 70.0% (40-74) Lymphocytes (%) (Auto) 21.3% (14-46) Monocytes (%) (Auto) 7.4% (4-12) Eosinophils (%) (Auto) 0.8% (0-5) Basophils (%) (Auto) 0.3% (0-3) Prothrombin Time 9.7sec (8.1-12.5) Prothromb Time International Ratio 0.91ratio Activated Partial Thromboplast Time 27.0sec (22.8-33.0) Sodium Level 129mEq/L (134-144) Potassium Level 3.8mEq/L (3.5-5.2) Chloride Level 93mEq/L (97-108) Carbon Dioxide Level 16mmol/L (18-29) Blood Urea Nitrogen 20mg/dL (6-24) Creatinine 1.31mg/dL (0.76-1.27) Estimat Glomerular Filtration Rate 62mL/min (>59) Glucose Level 617mg/dL (60-99) Calcium Level 8.8mg/dL (8.5-10.1) Magnesium Level 1.8mg/dL (1.6-2.6) Total Bilirubin 0.3mg/dL (0.0-1.2) Aspartate Amino Transf (AST/SGOT) 11U/L (0-50) Alanine Aminotransferase (ALT/SGPT) 11U/L (0-44) Alkaline Phosphatase 135U/L (25-150) Total Creatine Kinase 51U/L (21-232) Troponin T < 0.010ug/L (0.0-0.011) Total Protein 7.3g/dL (6.4-8.4) Albumin 3.8g/dL (3.4-5.0) Ketones Negative (Negative) Urine Color Yellow (YELLOW) Urine Appearance Clear (CLEAR,HAZY) Urine pH 6.0 (5.0-8.0) Urine Specific [place] 1.010 (1.003-1.035) Urine Protein Negativemg/dL (NEG,TRACE) Urine Glucose (UA) 1000mg/dL (NEGATIVE) Urine Ketones Negativemg/dL (NEGATIVE) Urine Occult Blood Negative (NEGATIVE) Urine Nitrite Negative (NEGATIVE) Urine Bilirubin Negative (NEGATIVE) Urine Urobilinogen Normalmg/dL (NORMAL) Urine Leukocyte Esterase Negative (NEGATIVE) Urine RBC 0-2/hpf (0-2) Urine WBC 0-5/hpf (0-5) Urine Epithelial Cells Moderate/hpf (NONE-MOD) Urine Crystals None seen (NONE SEEN) Urine Bacteria None/hpf (NONE-FEW) Urine Hyaline Casts None/lpf (NONE) Urine Granular Casts None seen (NONE SEEN) Urine Waxy Casts None seen (NONE SEEN) Urine Red Blood Cell Casts None seen (NONE SEEN) Urine White Blood Cell Casts None seen (NONE SEEN) Urine Mucus None seen (None Seen) Urine Trichomonas None seen (NONE SEEN) Urine Yeast None (NONE SEEN) Urinalysis Comment None Urine Culture Reflexed Not indicated ECG Interpretation ECG Interpretation: Low voltage, precordial leads Prolonged QT interval Time: 16:42 Interpreted by: ED physician Normal ECG Interpretation: Normal rate (79), Normal sinus rhythm X-Ray Chest Interpretation Chest Xray Interpretation: IMPRESSION: No acute process. Dictated by: Simba Grullon M.D. on 07/13/2017 at 16:56 View: Portable, 1 view Interpretation / Wet Read by: Interpret - Radiologist CT Head Interpretation IMPRESSION: No acute process. Dictated by: Simba Grullon MD on 07/13/2017 at 20:25 Study: Head CT no contrast Interpretation / Wet Read by: Interpret - Radiologist Re-Eval/Medical Decision Med Decision/Clinical Course In summary, 47-year-old male with a long-standing history of coronary disease, poorly controlled diabetes presenting to the ED for evaluation of chest pain associated with syncope today. Differential is broad and includes dysrhythmia, ACS, aortic dissection, valvular dysfunction, PE, etc. He does have known coronary disease and his current symptoms seem consistent with his typical angina; initial troponin negative, EKG with no new acute ischemic changes, however he does have a prolonged QT. Doubt aortic dissection given pain described as similar to previous, normal neurologic examination, no wide mediastinum on chest x-ray, equal pulses in bilateral upper and lower extremities. Does not seem clinically consistent with PE given described as similar to previous, no pleuritic symptoms, good O2 sats. No new murmurs appreciated on examination. Chest x-ray negative. Head CT negative. Glucose 617; given insulin here in the ED with improvement. His creatinine has risen from 0.982 1.31 and his sodium is 129. CBC grossly within normal limits. He has been seen in the emergency department multiple times over the past week; review of his chart reveals that he was discharged the morning after being admitted recently and patient states that he was not given any kind of a plan for what to do and who to see. He seems to be very frustrated at this time. Given that his chest pain is similar to previous with no new acute changes right now, I do not feel that he needs to be started on heparin immediately; he was given nitroglycerin and morphine here in the ED with minimal improvement. He does not have an appointment for several weeks and given that his pain has brought him back to the ED this many times without further workup, now with syncope, I feel that a thorough medication reconciliation and likely multidisciplinary effort to determine a care plan for him going forward is warranted as continuing to come to the ED with similar symptoms is both impractical and inconvenient for the patient and an inefficient approach to his disease. Of note, the new syncope may be related to his doxazosin dose, as it is high and he takes it in the mornings. Given above, plan admission for further management and evaluation of his chest pain, syncope. He also needs a good outpatient management plan and extensive discussion with him and his family as to how best to approach his symptoms moving forward. Patient agreeable to the plan as stated, no further questions. Time of Eval: 19:50 Re-Evaluation/Progress Note: Patient rechecked. Discussed plan to admit. Patient understands and agrees with plan. All questions addressed at this time. Consultation : Referral / Consult Name: Beth Lawson Consulted With: Hospitalist Call Returned at: 20:06 Electronics Technician Apprentice: Agrees with eval, Agrees with plan, Accepts admit Note: Discussed plan to admit. Counseled Regarding: Diagnosis, Lab results, Need for admission Discharge & Departure Primary Impression: Syncope Syncope type: unspecified Qualified Code: R55 - Syncope and collapse Additional Impressions: Hyperglycemia Chest pain Chest pain type: unspecified Qualified Code: R07.9 - Chest pain, unspecified Disposition: ADMITTED TO HOSPITAL Discharge Condition All VS Reviewed: Yes Condition: Improved Referrals: Santiago Funez MD (PCP) Cindy Attestation Portions of this note were transcribed by Perla Walker and Keshawn Holder. I, Dr. Domínguez personally performed the history, physical exam and medical decision-making; I reviewed and confirmed the accuracy of the information in the transcribed note. Signed by: Cindy Erickson, 07/13/2017 Signed by: Cindy Ford, 07/13/17. copies to: Santiago Funez MD, William B MD Jul 13, 2017 16:50 Jul 13, 2017 16:55 PERLA WALKER Jul 13, 2017 20:17
--- NOTE | 2017-07-13 16:58 | DRSVH ---
PROCEDURE: X-RAY CHEST ONE VIEW, PORTABLE ([id number]) INDICATIONS: CP TECHNIQUE: One view of the chest was acquired. COMPARISON: [facility], CR, XR CHEST 1VW (PORTABLE), 07/11/2017, 19:16. FINDINGS: Surgical changes and devices: None. Lungs and pleura: No pleural effusions or pneumothorax. Lungs are clear. Mediastinum: Mediastinal contours appear normal. Heart size is normal. Bones and chest wall: No suspicious bony lesions. Overlying soft tissues appear unremarkable. IMPRESSION: No acute process. Dictated by: Simba Grullon M.D. on 07/13/2017 at 16:56 Approved by: Simba Grullon M.D. on 07/13/2017 at 16:56
[2017-07-13 17:19] LABS: BASOPHILS % (AUTO) 0.3 % (0-3); EOSINOPHILS % (AUTO) 0.8 % (0-5); MONOCYTES % (AUTO) 7.4 % (4-12); Mean Corpuscular Hemoglobin 29.5 pg (27.0-35.0); Mean Corpuscular Volume 86.3 fL (81-100); Platelet Count 229 bil/L (150-400)
[2017-07-13 17:29] VITALS: BP 147/65; PULSE 77; RESP 18; O2SAT 98
[2017-07-13 17:34] LABS: TROPONIN T < 0.010 ug/L (0.0-0.011)
[2017-07-13 17:38] LABS: Magnesium 1.8 mg/dL (1.6-2.6)
[2017-07-13] MEDS ORDERED: Insulin Human REGular-Omnicell 100 Unit/mL IV ONE (20:00)
[2017-07-13 20:19] VITALS: BP 149/77; PULSE 66; RESP 18; O2SAT 100
[2017-07-13] MEDS ORDERED: Polyethylene Glycol (PEG) 17 Gm Powder PO PRN (20:25)
[2017-07-13] MEDS ORDERED: Alum-Mag Hydrox-Simeth 30 mL Suspension PO PRN (20:25)
[2017-07-13] MEDS ORDERED: Ondansetron 2 mg/mL 2 mL Inj IVPUSH PRN (20:25)
--- NOTE | 2017-07-13 20:27 | DRSVH ---
PROCEDURE: CT BRAIN WITHOUT CONTRAST ([id number]) INDICATIONS: fall, convulsions TECHNIQUE: Noncontrast 4.5 mm thick angled axial sections acquired from the foramen magnum to the vertex, with c oronal reformats. COMPARISON: [facility], CT, CT BRAIN WO CON, 06/22/2017, 19:32. FINDINGS: Image quality: Excellent. CSF spaces: Basal cisterns are patent. No extra-axial fluid collections. Ventricles are normal in size and shape. Brain: No midline shift. No intracranial masses or hemorrhage. Haider-white matter interface is norm al. Skull and face: Calvarium and visualized facial bones are intact, without suspicious lesions. Sinuses: Visualized sinuses and mastoids are clear. IMPRESSION: No acute process. Dictated by: Simba Grullon M.D. on 07/13/2017 at 20:25 Approved by: Simba Grullon M.D. on 07/13/2017 at 20:25
[2017-07-13 20:42] LABS: APPEARANCE,URINE CLEAR (CLEAR,HAZY); COLOR,URINE YELLOW (YELLOW); OCCULT BLOOD,URINE NEGATIVE (NEGATIVE); UROBILINOGEN,URINE NORMAL (NORMAL)
[2017-07-13 21:07] VITALS: BP 130/65; PULSE 66; RESP 18; O2SAT 99
[2017-07-13 21:38] VITALS: PULSE 81
[2017-07-13] MEDS ORDERED: 0.9% Sodium Chloride 1,000 ML IV SCH (21:45)
--- NOTE | 2017-07-13 21:47 | PCM.HPMED ---
Subjective Date of Service Jul 13, 2017 Primary Provider: Admitting Physician: Beth Lawson DO Primary Care Physician: Santiago Funez MD Attending Physician: Beth Lawson DO Chief Complaint: Syncopal episode History of Present Illness: Bernardo Koenig is a 47-year-old male with past medical history remarkable for myocardial infarction and coronary artery disease requiring 9 stents placed within approximately the last year who presents with syncopal episode x 2. Patient reports that around noon today he had some anginal type symptoms. He reports the symptoms are typical of what he has recurrently and has been told to take 2 nitroglycerin when this occurs and another 2 if pain does not alleviate after 15 minutes. After taking 2 nitroglycerin the pain was improved but when he attempted to stand from a seated position he felt weak, lightheaded , and his legs felt as though they were going to collapse. At this time he carefully what himself down and did not sustain any injuries. He felt stronger and less lightheaded after a few minutes and stood back up. A few hours later he had a similar occurrence except this time his daughter was close by and when he noted feeling weak in his legs she wrapped her belts around him like a gait belt. When he "blacked out" she was able to slowly lower him to the ground without any difficulty. Once he was on the ground he did have some shaky movements but did not bite his tongue, lose continence of bowel or bladder, or have any postictal symptoms. Of note the patient has been seen in our ED and hospitalized frequently over the last few months. In reviewing his inpatient and outpatient records it appears that he does not have good continuity of care and subsequently appears to have issues with polypharmacy. Dr. Jackman, wallpaper cleaner, had similar concerns of polypharmacy and attempted to discontinue some of his medications but these were restarted by PCP. In discussion with the patient he takes multiple medications for BPH along with furosemide another blood pressure lowering medications. Of note the lightheadedness that he had earlier today was reproduced when orthostatic blood pressures were obtained in the ED and once he was transferred to the floor. Orthostatic blood pressure was significantly abnormal. No other abnormal vital signs. Labs were unremarkable aside from slight elevation in his creatinine. CT of the head was done which showed no acute abnormalities. Review of Systems: Comprehensive review of systems was conducted with the patient and found to be negative except as noted above in HPI. Allergies Coded Allergies: Honey Bee (Verified Allergy, Severe, anaphylaxis, 07/13/17) Penicillins (Verified Allergy, Severe, SWELLING, HIVES, ITCHING, 07/13/17) TAPE (Verified Allergy, Mild, blisters, 07/13/17) levetiracetam (Verified Allergy, Unknown, 07/13/17) "Sleep all day long" hydromorphone (Verified Adverse Reaction, Intermediate, HALLUCINATIONS, "HIGH", 07/13/17) sumatriptan (Verified Adverse Reaction, Intermediate, CONVULSIONS, SHAKES , 07/13/17) Home Medications Percocet 10 mg Q4H Allopurinol Atorvastatin PMH Patient states has had "nine stents" placed at [facility] Unstable angina CAD Syncope Type two diabetes with neuropathy Chronic back and leg pain Lower extremity DVT History of migraines BPH Kidney Stones On Warfarin and Plavix Seizure Spinal meningitis COPD Congestive heart failure Hypertension Stroke Surgical History Shoulder surgery (joint replacement) Left knee surgery Ganglion cyst in right hand Cardiac stents ("x9" - at [facility]) Cholecystectomy Family History Father - myocardial infarction Mother - CAD Social History 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 Hx Alcohol Use: No Hx Substance Use: No Hx Tobacco Use: Yes Smoking Status: Current Every Day Smoker Living Arrangement: with Family Exam Vital Signs Vital Sign - Last Date Time Temp Pulse Resp B/P Pulse Ox O2 Delivery O2 Flow Rate FiO2 07/13/17 20:19 66 18 149/77 100 Room Air Exam General: Morbidly obese middle aged man in no acute distress Eyes: Pupils equal round and reactive to light, extraocular motion intact, anicteric sclera, noninjected conjunctiva HENT: Normocephalic atraumatic, moist mucous membranes without central cyanosis , oropharynx clear without purulent exudate or cobblestoning mucosa Neck: Supple, trachea midline, without thyromegaly or JVD Cardiovascular: Regular rate and regular rhythm, S1-S2 present, no S3-S4, without murmurs rubs or gallops noted Lungs: Clear to auscultation bilaterally without wheezing rales or rhonchi Abdomen: Soft, nontender, nondistended, tympanic to percussion, normal active bowel sounds, without organomegaly Extremities: No cyanosis clubbing or edema noted, pulses intact bilaterally at dorsalis pedis and radial : No Whitney catheter in place Skin: Warm and dry Neuro: Nonfocal neurologic exam Psych: Normal mood and affect Lab and Diagnostics Result Diagram: 07/13/17 1645 07/13/17 1645 X-Rays, CTs and MRIs CT BRAIN WITHOUT CONTRAST IMPRESSION: No acute process. Dictated by: Simba Grullon M.D. on 07/13/2017 at 20:25 Approved by: Simba Grullon M.D. on 07/13/2017 at 20:25 X-RAY CHEST ONE VIEW, PORTABLE IMPRESSION: No acute process. Dictated by: Simba Grullon M.D. on 07/13/2017 at 16:56 Approved by: Simba Grullon M.D. on 07/13/2017 at 16:56 12-lead ECG No ST segment elevation or T-wave inversions. QT prolonged 461 Assessment & Plan Bernardo Koenig is a 47-year-old male with past medical history remarkable for myocardial infarction and coronary artery disease requiring 9 stents placed within approximately the last year who presents with syncopal episode x 2. Syncopal episodes secondary to orthostatic hypotension - Etiology likely orthostatic hypotension due to polypharmacy. Patient's syncopal episodes occurred after taking nitroglycerin for mild angina that he has at baseline. This in conjunction with other blood pressure lower medications is likely the culprit. - Orthostatic blood pressure taken and positive in the ED and when he arrived on the floor. - Held BPH medications and furosemide. - Polypharmacy was a concern noted back in January by Dr. Jackman and BP medications were discontinued but have subsequently been restarted. - Careful evaluation of appropriate medication regimen needed. Prolonged QT - Avoid QT prolonging medications. - Repeat EKG in the morning. Acute kidney injury - Possibly secondary to polypharmacy. - Avoid nephrotoxic drugs. - Repeat BMP in the morning. Further workup if not resolved with fluids. Chronic type II diabetes with peripheral neuropathy and gastroparesis - Glucose elevated at admission corrected in the ED. - Hgba1c 10.3 at admission in March. Repeat pending. - Patient takes Lantus 80 mg HS this will be continued. - Regular insulin 40 twice daily with breakfast and dinner - Insulin correction dose (high) - Gabapentin continue - Diabetic/heart healthy diet. - Need to follow up with Endocrinology as outpatient. Chronic diastolic heart failure - Continue home medications: Imdur, Metoprolol, Lisinopril - Furosemide held due to orthostatic hypotension. Chronic Tobacco dependency disorder - Discussed with patient the harms of smoking, and counselled to quit. - Nicotine patch available upon request. Chronic benign prostatic hypertrophy - Held home meds including tamsulosin, doxazosin, and finasteride as they could be contributed to orthostatic hypotension. - Day team to add medications back in as appropriate. Chronic esophageal reflux disease - Continue home pantoprazole. Chronic pain - Continue home Percocet 10-325 mg Q4H PRN. PRN Medications - Acetaminophen as needed for mild pain/fever/headache - Bowel regimen as needed Patient is admitted under observation status with expected length of stay less than 2 midnights due to severity of presenting symptoms, risk of adverse event, and complexity of treatment plan. Pain Evaluation: Adequate Pain Control GI Prophylaxis: Proton Pump Inhibitor Resuscitation Status: Limited Interventions (DO NOT INTUBATE) Attending Statement The patient was seen and examined together with house staff on 07/13/2017 and I agree with the history, exam and plan as outlined in the note above. DOUGLAS RAYGOZA DO Jul 13, 2017 20:56 Beth Lawson DO Jul 14, 2017 05:27
[2017-07-13 21:56] VITALS: BP_SYST 102; BP_SYST 72; BP_SYST 91; BP_DIAS 47; BP_DIAS 55; BP_DIAS 66; PULSE 67; RESP 18; O2SAT 97
[2017-07-13] MEDS ORDERED: ASPI325T32 PO (22:15)
[2017-07-13] MEDS ORDERED: TAMS0.4C29 PO (22:22)
[2017-07-13] MEDS ORDERED: [UNRECOGNIZED DRUG - CODE] TRANSDERM (22:24)
[2017-07-13 22:55] LABS: INR 0.91 ratio
[2017-07-13] MEDS: oxyCODONE-Acetamin 10-325 mg Tablet PO PRN (23:04)
[2017-07-13] MEDS ORDERED: Sodium Phosphate Inj 40 MEQ in Dextrose 5% 500 ML IV ONE (23:10)
[2017-07-14] VITALS (8 sets, daily range): BP systolic 95–122; BP diastolic 58–87; PULSE 58–70; RESP 18; O2SAT 95–98
--- NOTE | 2017-07-14 00:18 | NUR ---
Admit note: Pt arrived to the unit, able to ambulate to the bed with stated dizziness. Orthostatic BP assessed, positive for orthostatic hypotension; Lying 102/66, sitting 91/55, standing 72/47. Blood sugar was 77, after juice and snack brought in by family, sugar is now 109. Dr. Ray was to the room and is aware of the values. Pt alert and oriented x3. Medicated for pain just prior to transfer to floor, pain acceptable upon arrival. Later pain reported to "deep chest/shoulder" pain at 7/10. PO pain medication administered, pain is decreasing per pt. Oriented to room and call light, is using call light for needs.
[2017-07-14] MEDS: Insulin Human REGular 300 Unit/3 mL Inj SUBQ SCH ×2 (03:01→09:00)
[2017-07-14] MEDS: oxyCODONE-Acetamin 10-325 mg Tablet PO PRN ×3 (03:01→13:09)
[2017-07-14 05:36] LABS: BASOPHILS % (AUTO) 0.4 % (0-3); EOSINOPHILS % (AUTO) 1.6 % (0-5); MONOCYTES % (AUTO) 6.6 % (4-12); Mean Corpuscular Hemoglobin 29.6 pg (27.0-35.0); Mean Corpuscular Volume 86.2 fL (81-100); NEUTROPHILS % (AUTO) 60.6 % (40-74); Platelet Count 184 bil/L (150-400)
[2017-07-14] MEDS ORDERED: Insulin Human NPH 100 Unit/mL 3 mL Inj SUBQ SCH (07:30)
[2017-07-14] MEDS ORDERED: Pantoprazole 40 mg ER24 Tablet PO SCH (07:30)
[2017-07-14] MEDS ORDERED: Isosorbide Mononitrate 60 mg ER24 Tablet PO SCH (08:30)
[2017-07-14] MEDS ORDERED: MeTOProlol XL 25 mg ER24 Tablet PO SCH (08:30)
--- NOTE | 2017-07-14 12:41 | PCM.DIMED ---
Discharge Instructions Date of Service Jul 14, 2017 Dates of Hospitalization Jul 13, 2017 at 20:39 Discharge Diagnosis Discharge Diagnosis Syncope due to Orthostasis due to medications Diet Discharge Diet: Heart Healthy, Diabetic Activity Discharge Activity: No restrictions Call your provider Call your provider for: Shortness of breath, Chest pain Patient Instructions Patient Instructions See your doctor this week and discuss when to resume Furosemide. While you are off the Furosemide you don't need the potassium. If you gain more than 3 pounds discuss with your doctor or if they are not available resume the Furosemide and Potassium. Follow-up with PCP in: 1 week Irena Lyons MD Jul 14, 2017 12:41
[2017-07-14] MEDS ORDERED: NITR0.4T38 SL (12:45)
--- NOTE | 2017-07-14 12:55 | PCM.DC.MED ---
Discharge Summary Date of Service Jul 14, 2017 Dates of Hospitalization Date of Hospital Admission Jul 13, 2017 at 20:39 Date of Discharge: Jul 14, 2017 Providers: Admitting Physician: Beth Lawson DO Primary Care Physician: Santiago Funez MD Attending Physician: Nino Lyons MD Diagnosis at Time of Discharge Diagnosis at Time of Discharge Syncope due to Orthostasis due to medications Procedures XRay, CTs & MRIs CT BRAIN WITHOUT CONTRAST IMPRESSION: No acute process. Dictated by: Simba Grullon M.D. on 07/13/2017 at 20:25 Approved by: Simba Grullon M.D. on 07/13/2017 at 20:25 X-RAY CHEST ONE VIEW, PORTABLE IMPRESSION: No acute process. Dictated by: Simba Grullon M.D. on 07/13/2017 at 16:56 Approved by: Simba Grullon M.D. on 07/13/2017 at 16:56 ECG [address] segment elevation or T-wave inversions. QT prolonged 461 Brief History Bernardo Koenig is a 47-year-old male with past medical history remarkable for myocardial infarction and coronary artery disease requiring 9 stents placed within approximately the last year who presents with syncopal episode x 2. Patient reports that around noon today he had some anginal type symptoms. He reports the symptoms are typical of what he has recurrently and has been told to take 2 nitroglycerin when this occurs and another 2 if pain does not alleviate after 15 minutes. After taking 2 nitroglycerin the pain was improved but when he attempted to stand from a seated position he felt weak, lightheaded , and his legs felt as though they were going to collapse. At this time he carefully what himself down and did not sustain any injuries. He felt stronger and less lightheaded after a few minutes and stood back up. A few hours later he had a similar occurrence except this time his daughter was close by and when he noted feeling weak in his legs she wrapped her belts around him like a gait belt. When he "blacked out" she was able to slowly lower him to the ground without any difficulty. Once he was on the ground he did have some shaky movements but did not bite his tongue, lose continence of bowel or bladder, or have any postictal symptoms. Of note the patient has been seen in our ED and hospitalized frequently over the last few months. In reviewing his inpatient and outpatient records it appears that he does not have good continuity of care and subsequently appears to have issues with polypharmacy. Dr. Jackman, xerox machine mechanic, had similar concerns of polypharmacy and attempted to discontinue some of his medications but these were restarted by PCP. In discussion with the patient he takes multiple medications for BPH along with furosemide another blood pressure lowering medications. Of note the lightheadedness that he had earlier today was reproduced when orthostatic blood pressures were obtained in the ED and once he was transferred to the floor. Orthostatic blood pressure was significantly abnormal. No other abnormal vital signs. Labs were unremarkable aside from slight elevation in his creatinine. CT of the head was done which showed no acute abnormalities. Hospital Course Syncopal episodes secondary to orthostatic hypotension - Etiology likely orthostatic hypotension due to polypharmacy. Patient's syncopal episodes occurred after taking nitroglycerin for mild angina that he has at baseline. This in conjunction with other blood pressure lower medications is likely the culprit. - Polypharmacy was a concern noted back in January by Dr. Jackman and BP medications were discontinued but have subsequently been restarted. - Orthostatic blood pressure taken and positive in the ED and when he arrived on the floor. - Repeated on day of discharge and improved. SBP 122 changed to 98 with standing and just mild lightheadedness. Was then able to ambulate around the banda. - Held BPH medications and furosemide and will continue to do so at discharge although needs early follow up with PCP regarding Furosemide (or also resume if gains 3 pounds or more) Chest pain - while in hospital just had mild ache occasionally in chest which he states is his baseline - Troponin repeated on morning of discharge and is still negative Prolonged QT - Avoid QT prolonging medications. Acute kidney injury - Possibly secondary to polypharmacy. - IVF - Avoid nephrotoxic drugs. 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 - Hgba1c 10.3 at admission in March. Repeat pending. - Patient takes Lantus 80 mg HS this was continued. - Regular insulin 40 twice daily with breakfast and dinner - Insulin correction dose (high) - Gabapentin continued - Diabetic/heart healthy diet. - Needs outpatient follow up. Chronic diastolic heart failure - Continue home medications: Imdur, Metoprolol, Lisinopril - Furosemide held due to orthostatic hypotension and will continue to do so at discharge although needs early follow up with PCP regarding Furosemide (or also resume if gains 3 pounds or more) Chronic Tobacco dependency disorder - Discussed with patient the harms of smoking, and counselled to quit. - Nicotine patch available upon request. Chronic benign prostatic hypertrophy - Held home meds including tamsulosin, doxazosin, and finasteride as they could be contributing to orthostatic hypotension. - Still mild orthostasis at time of discharge so not yet resumed - Follow up with PCP. Chronic esophageal reflux disease - Continue home pantoprazole. Chronic pain - Continue home Percocet 10-325 mg Q4H PRN. Exam Vital Signs (Last) Date Time Temp Pulse Resp B/P Pulse Ox O2 Delivery O2 Flow Rate FiO2 07/14/17 11:01 98/64 07/14/17 10:13 58 07/14/17 08:45 98 Room Air 07/14/17 05:19 36.7 18 Exam General: Alert and oriented, no acute distress Heart: Regular Lungs: Clear Abdomen: Soft, non-tender Extremities: No pedal edema Test 07/13/17 16:45 07/13/17 20:27 07/13/17 21:48 07/13/17 23:04 Prothrombin Time 9.7sec (8.1-12.5) Prothromb Time International Ratio 0.91ratio Activated Partial Thromboplast Time 27.0sec (22.8-33.0) Magnesium Level 1.8mg/dL (1.6-2.6) Total Creatine Kinase 51U/L (21-232) Ketones Negative (Negative) Urine Color Yellow (YELLOW) Urine Appearance Clear (CLEAR,HAZY) Urine pH 6.0 (5.0-8.0) Urine Specific [place] 1.010 (1.003-1.035) Urine Protein Negativemg/dL (NEG,TRACE) Urine Glucose (UA) 1000mg/dL (NEGATIVE) Urine Ketones Negativemg/dL (NEGATIVE) Urine Occult Blood Negative (NEGATIVE) Urine Nitrite Negative (NEGATIVE) Urine Bilirubin Negative (NEGATIVE) Urine Urobilinogen Normalmg/dL (NORMAL) Urine Leukocyte Esterase Negative (NEGATIVE) Urine RBC 0-2/hpf (0-2) Urine WBC 0-5/hpf (0-5) Urine Epithelial Cells Moderate/hpf (NONE-MOD) Urine Crystals None seen (NONE SEEN) Urine Bacteria None/hpf (NONE-FEW) Urine Hyaline Casts None/lpf (NONE) Urine Granular Casts None seen (NONE SEEN) Urine Waxy Casts None seen (NONE SEEN) Urine Red Blood Cell Casts None seen (NONE SEEN) Urine White Blood Cell Casts None seen (NONE SEEN) Urine Mucus None seen (None Seen) Urine Trichomonas None seen (NONE SEEN) Urine Yeast None (NONE SEEN) Urinalysis Comment None Urine Culture Reflexed Not indicated Lactic Acid Level 1.2mmol/L (0.4-2.0) Test 07/14/17 05:00 White Blood Count 9.4th/mm3 (3.8-10.1) Red Blood Count 4.50mil/mm3 (4.40-5.80) Hemoglobin 13.3g/dL (13.8-17.2) Hematocrit 38.8% (41.0-50.0) Mean Corpuscular Volume 86.2fL (81-100) Mean Corpuscular Hemoglobin 29.6pg (27.0-35.0) Mean Corpuscular Hemoglobin Concent 34.3% (32.0-37.0) Red Cell Distribution Width 12.5% (12.3-15.4) Platelet Count 184bil/L (150-400) Neutrophils (%) (Auto) 60.6% (40-74) Lymphocytes (%) (Auto) 30.6% (14-46) Monocytes (%) (Auto) 6.6% (4-12) Eosinophils (%) (Auto) 1.6% (0-5) Basophils (%) (Auto) 0.4% (0-3) Sodium Level 136mEq/L (134-144) Potassium Level 3.9mEq/L (3.5-5.2) Chloride Level 101mEq/L (97-108) Carbon Dioxide Level 20mmol/L (18-29) Blood Urea Nitrogen 19mg/dL (6-24) Creatinine 0.89mg/dL (0.76-1.27) Estimat Glomerular Filtration Rate 97mL/min (>59) Glucose Level 187mg/dL (60-99) Calcium Level 8.4mg/dL (8.5-10.1) Total Bilirubin 0.3mg/dL (0.0-1.2) Aspartate Amino Transf (AST/SGOT) 11U/L (0-50) Alanine Aminotransferase (ALT/SGPT) 9U/L (0-44) Alkaline Phosphatase 119U/L (25-150) Troponin T 0.010ug/L (0.0-0.011) Total Protein 6.2g/dL (6.4-8.4) Albumin 3.3g/dL (3.4-5.0) Discharge Medications Discharge Medications Allopurinol (Allopurinol) 300 Mg Tablet 300 MG PO HS (Reported) Aspirin (Aspirin) 325 Mg Tablet 325 MG PO QAM (Reported) Atorvastatin (Lipitor) 80 Mg Tablet 80 MG PO HS (Reported) Clopidogrel (Clopidogrel) 75 Mg Tablet 75 MG PO QAM (Reported) Finasteride (Finasteride) 5 Mg Tablet 5 MG PO QAM (Reported) Fluoxetine (Fluoxetine) 40 Mg Capsule 40 MG PO QAM (Reported) Gabapentin (Gabapentin) 600 Mg Tablet 600 MG PO BID (Reported) Insulin Glargine (Lantus U100 Insulin Vial) 100 Unit/Ml Vial 80 UNIT SUBQ BID ( Reported) Insulin Regular, Human (HUMulin-R U100 Insulin Vial) 100 Unit/1 Ml Vial 40-60 UNIT SUBQ BIDWM (Reported) BREAKFAST AND DINNER Insulin Regular, Human (HUMulin-R U100 Insulin Vial) 100 Unit/1 Ml Vial 2-20 UNIT SUBQ ACHS (Reported) SLIDING SCALE Isosorbide MN ER (Isosorbide MN ER) 60 Mg Tab.er.24h 60 MG PO QAM (Reported) Lisinopril (Lisinopril) 2.5 Mg Tablet 2.5 MG PO QAM (Reported) Metoprolol Succinate ER (Metoprolol Succinate ER) 25 Mg Tab.er.24h 12.5 MG PO QAM Prescribed by: TOSHA MCCRAY MD Pantoprazole (Pantoprazole DR) 40 Mg Tablet.dr 40 MG PO QAM (Reported) As needed Albuterol HFA (Proair HFA) 8.5 Gm Hfa.aer.ad 2 PUFFS INHALATION QID PRN PRN For Shortness of Breath (Reported) Ibuprofen (Ibuprofen) 200 Mg Capsule 600 MG PO BID PRN PRN For Pain (Reported) Nicotine 21 mg/24 hr Patch (Nicotine 21 mg/24 hr Patch) 1 Each Patch.dysq 1 PATCH TRANSDERM DAILY PRN PRN NICOTINE WITHDRAWAL (Reported) Nitroglycerin SL (Nitroglycerin SL) 0.4 Mg Tab.subl 0.4 MG SL Q5MIN PRN PRN For Chest Pain only one tab at a time, wait at least 5 min before the next one Prescribed by: NINO LYONS MD Ondansetron (Ondansetron) 8 Mg Tablet 8 MG PO Q6H PRN PRN For Nausea/Vomiting ( Reported) oxyCODONE (oxyCODONE) 10 Mg Tablet 10 MG PO Q4H PRN PRN For Pain (Reported) Followup Plan Discharge Diet: Heart Healthy, Diabetic Discharge Activity: No restrictions Patient Instructions See your doctor this week and discuss when to resume Furosemide. While you are off the Furosemide you don't need the potassium. If you gain more than 3 pounds discuss with your doctor or if they are not available resume the Furosemide and Potassium. Follow-up with PCP in: 1 week Nino Lyons MD Jul 14, 2017 12:55
[2017-07-14] MEDS ORDERED: NITR0.4T SL (13:07)
[2017-07-14] MEDS ORDERED: [UNRECOGNIZED DRUG - CODE] MC (13:10)
--- NOTE | 2017-07-14 13:46 | NUR ---
Social Work-screening/ discharge: Data:EMR Reviewed. Pt is a 47 y/o male who was admitted on 07/13/17 for chest pain per H&P. Pt's insurance is [facility] Blind/disabled and PCP is Santiago Funez MD. EMR reviewed. Pt resides at home with his where he remains independent with ADLS. Pt has been up independent in his room. No discharge needs identified. All updated and agreeable to plan. Assessment:Pt who is independent at baseline. Plan:Pt to discharge home today via POV. No discharge needs identified. All updated and agreeable to plan. ANTHONY Matta
--- NOTE | 2017-07-14 14:25 | NUR ---
Discharge Note Pt discharged, spouse here to transport home. IV catheter x 1 & telemetry box removed. Discharge instructions/medications discussed & understood. Prescription for nitro SL & glucometer sent to [facility] [place]. Percocet x 1 admin before discharge for back pain. All items gathered, nothing left behind, patient & family walked out by GENERATOR WORKER. Vitals stable, no c/o cp/pressure upon discharge, only mild dizziness when ambulating, Md aware. Patient to make f/u appt w/ PCP for this week. Encouraged patient to take BP before a.m. BP/cardiac meds & to keep a log as well as daily weight.
[2017-07-14] MEDS ORDERED: Insulin GLARgine 100 Unit/mL Syringe SUBQ SCH (21:00)
== END 2017-07-14 13:35 | disposition home or self-care (01) ==
LOC: EDUNIT# 16:30 → EDBD 16:30 → SED 16:30 → MPC 20:39
PROVIDERS: ADMIT Internal Medicine; ATTEND Internal Medicine
DX: R55 Syncope and collapse (principal); R07.9 Chest pain, unspecified; N17.9 Acute kidney failure, unspecified; E11.42 Type 2 diabetes mellitus with diabetic polyneuropathy; E11.43 Type 2 diabetes mellitus with diabetic autonomic (poly)neuropathy; K31.84 Gastroparesis; I50.32 Chronic diastolic (congestive) heart failure; N40.0 Benign prostatic hyperplasia without lower urinary tract symptoms; K21.9 Gastro-esophageal reflux disease without esophagitis; G89.4 Chronic pain syndrome; I10 Essential (primary) hypertension; I25.110 Atherosclerotic heart disease of native coronary artery with unstable angina pectoris; I25.2 Old myocardial infarction; J44.9 Chronic obstructive pulmonary disease, unspecified; Z86.73 Personal history of transient ischemic attack (TIA), and cerebral infarction without residual deficits; G43.909 Migraine, unspecified, not intractable, without status migrainosus; F17.210 Nicotine dependence, cigarettes, uncomplicated; Z95.5 Presence of coronary angioplasty implant and graft; Z79.51 Long term (current) use of inhaled steroids; Z79.82 Long term (current) use of aspirin; Z79.4 Long term (current) use of insulin; Z79.02 Long term (current) use of antithrombotics/antiplatelets; Z79.01 Long term (current) use of anticoagulants
CPT/HCPCS: 36415; 70450; 71010; 80053; 81000; 82009; 82550; 82948; 83036; 83605; 83735; 84484; 85025; 85610; 85730; 93005; 96374; 96375; 96376; 99285; G0378; J1815; J2270; J7030

== ENCOUNTER 2017-07-25 12:41 | Emergency (ER) | payer OTHER ==
[~2017-07-25] VITALS: Ht 172.7 cm; Wt 118.2 kg
[~2017-07-25 12:41] MED LIST changes: -ASPI-973 PO; +ASPI325T32 PO; -DOXA4TAB2 PO; -FURO40TA4 PO; -NAPR-873 PO; +NITR0.4T SL; -POTA-62 PO; -TAMS0.4C29 PO; -TRAM-14 PO; +[UNRECOGNIZED DRUG - CODE] MC; +[UNRECOGNIZED DRUG - CODE] TRANSDERM
[2017-07-25 12:42] VITALS: BP 111/72; PULSE 61; RESP 16; O2SAT 98
--- NOTE | 2017-07-25 13:07 | ED.REPORT ---
HPI-Chest Pain 40 and Over Date of Service Jul 25, 2017 ED Provider: Byron Salazar Patient is a 47 year old male with a hx of CAD s/p 9 cardiac stents, CHF, HTN, COPD, DM, and anticoagulation on Warfarin who presents to the ED complaining of chest aching onset 0330 this morning upon waking. Associated symptoms include vomiting and SOB. He denies fever, chills, or any other symptoms. Pt reports what works best is "something to relax the muscles and something to get rid of the pain." He took Nitro and ASA prior to arrival. He was admitted 07/13- for chest pain and syncope. He has been seen in the ED 7 times this month alone for similar symptoms. There are significant concerns by the discharging hospitalist and his line assigner regarding polypharmacy. Nursing Notes Stated Complaint: CHEST PAIN/VOMITING Chief Complaint: Chest Pain Nursing Notes Reviewed: Yes Allergies: Coded Allergies: Honey Bee (Verified Allergy, Severe, anaphylaxis, 07/25/17) Penicillins (Verified Allergy, Severe, SWELLING, HIVES, ITCHING, 07/25/17) TAPE (Verified Allergy, Mild, blisters, 07/25/17) levetiracetam (Verified Allergy, Unknown, 07/25/17) "Sleep all day long" hydromorphone (Verified Adverse Reaction, Intermediate, HALLUCINATIONS, "HIGH", 07/25/17) sumatriptan (Verified Adverse Reaction, Intermediate, CONVULSIONS, SHAKES , 07/25/17) Scheduled Allopurinol (Allopurinol) 300 Mg Tablet 300 MG PO HS Aspirin (Aspirin) 325 Mg Tablet 325 MG PO QAM Atorvastatin (Lipitor) 80 Mg Tablet 80 MG PO HS Clopidogrel (Clopidogrel) 75 Mg Tablet 75 MG PO QAM Finasteride (Finasteride) 5 Mg Tablet 5 MG PO QAM Fluoxetine (Fluoxetine) 40 Mg Capsule 40 MG PO QAM Gabapentin (Gabapentin) 600 Mg Tablet 600 MG PO BID Insulin Glargine (Lantus U100 Insulin Vial) 100 Unit/Ml Vial 80 UNIT SUBQ BID Insulin Regular, Human (HUMulin-R U100 Insulin Vial) 100 Unit/1 Ml Vial 40-60 UNIT SUBQ BIDWM BREAKFAST AND DINNER Insulin Regular, Human (HUMulin-R U100 Insulin Vial) 100 Unit/1 Ml Vial 2-20 UNIT SUBQ ACHS SLIDING SCALE Isosorbide MN ER (Isosorbide MN ER) 60 Mg Tab.er.24h 60 MG PO QAM Lisinopril (Lisinopril) 2.5 Mg Tablet 2.5 MG PO QAM Metoprolol Succinate ER (Metoprolol Succinate ER) 25 Mg Tab.er.24h 12.5 MG PO QAM Pantoprazole DR (Pantoprazole DR) 40 Mg Tablet.dr 40 MG PO QAM Scheduled PRN Albuterol HFA (Proair HFA) 8.5 Gm Hfa.aer.ad 2 PUFFS INHALATION QID PRN PRN For Shortness of Breath Ibuprofen (Ibuprofen) 200 Mg Capsule 600 MG PO BID PRN PRN For Pain Nicotine 21 mg/24 hr Patch (Nicotine 21 mg/24 hr Patch) 1 Each Patch.dysq 1 PATCH TRANSDERM DAILY PRN PRN NICOTINE WITHDRAWAL Nitroglycerin SL (Nitroglycerin SL) 0.4 Mg Tab.subl 0.4 MG SL Q5MIN PRN PRN For Chest Pain only one tab at a time, wait at least 5 min before the next one Nitroglycerin SL (Nitrostat) 0.4 Mg Tab.subl 0.4 MG SL Q5MIN PRN PRN For Chest Pain only one tab at a time, wait 5 min before taking next tab Ondansetron (Ondansetron) 8 Mg Tablet 8 MG PO Q6H PRN PRN For Nausea/Vomiting oxyCODONE (oxyCODONE) 10 Mg Tablet 10 MG PO Q4H PRN PRN For Pain General Time Seen by MD: 13:07 Chief Complaint Chest aching Hx Obtained From: Patient Arrived By: Walk-in Sudden in Onset?: Yes Onset Occurred: 9 - 12 hours ago Symptom Duration: Since onset Quality: Aching Severity: Current: Moderate Severity: Maximum: Moderate Associated with: Reports: Shortness of Breath, Vomiting Pertinent Negative: Pt denies other symptoms Context Related History: Reports: Congestive heart failure, Diabetes mellitus, Hypertension Recent Healthcare: Recent doctor visit, Recent hospitalization Similar Sx Previous: Yes Risk Factors )( CAD Risk Stratification Known CAD Risk factors N/A )( TAD Risk Stratification HypertensionNo Risk factors reviewed )( PE Risk Stratification Previous DVTNo , No Risk factors reviewed Past Medical History Past Medical History Notes: Child Welfare Consultant: Dr. Ashraf, [place], [place] & Dr. Nickerson Multiple ED visits for CP, hospitalist diagnosis of narcotic seeking behavior Past Medical History Unstable angina CAD - multiple stents, cardiac caths 02/14, 03/12, 04/11, ad 04/17 w/stent placed to proximal LAD overlapping prior stent and "plavix non-responder" Syncope Type two diabetes with neuropathy Chronic back, neck, and leg pain Lower extremity DVT "years ago" per patient, details unclear History of migraines BPH Kidney Stones On Warfarin and Plavix Seizure Spinal meningitis [place] 2014 Concern for TIA October 2016, MRI/MRA negative Reports: COPD, Congestive heart failure, GERD, Hypertension, Stroke Reports: Heroin use Past Surgical History Shoulder surgery (joint replacement) Left knee surgery Ganglion cyst in right hand Cardiac stents ("x9" - at Prov) Artery repair x2 Reports: Cholecystectomy Family History Both of the patient's parents are still alive Smoking History Current Every Day Smoker Social History Alcohol Use: Denies alcohol use Drug Use: Denies drug use Other Social History: Good social support, Frequent ED visitor, , Local resident 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 Physical Exam Initial Vital Signs Vital Signs (First) Date Time Temp Pulse Resp B/P Pulse Ox O2 Delivery O2 Flow Rate FiO2 07/25/17 12:42 37.2 61 16 111/72 98 Room Air Initial VS: Reviewed, Vital signs normal Head / Eyes: Atraumatic, Normocephalic Neck: Full range of motion Extremities: Vascular intact, Neuro intact Skin: Warm, Dry Neurologic: Alert, Oriented, Nonfocal General/Constitutional: Awake, Alert, No acute distress Respiratory / Chest: Atraumatic, Breath sounds NL, Breath sounds = bilat, No respiratory distress Cardiovascular: Heart rate NL, Regular rhythm, Heart sounds NL Abdomen: Atraumatic, Soft Interpretation & Diagnostics Lab Results Interpretation Result Diagram: 07/25/17 1325 07/25/17 1325 Test 07/25/17 13:25 07/25/17 13:30 White Blood Count 10.9th/mm3 (3.8-10.1) Red Blood Count 4.18mil/mm3 (4.40-5.80) Hemoglobin 12.4g/dL (13.8-17.2) Hematocrit 35.7% (41.0-50.0) Mean Corpuscular Volume 85.4fL (81-100) Mean Corpuscular Hemoglobin 29.7pg (27.0-35.0) Mean Corpuscular Hemoglobin Concent 34.7% (32.0-37.0) Red Cell Distribution Width 12.9% (12.3-15.4) Platelet Count 226bil/L (150-400) Neutrophils (%) (Auto) 75.8% (40-74) Lymphocytes (%) (Auto) 16.7% (14-46) Monocytes (%) (Auto) 6.7% (4-12) Eosinophils (%) (Auto) 0.4% (0-5) Basophils (%) (Auto) 0.2% (0-3) Sodium Level 140mEq/L (134-144) Potassium Level 4.0mEq/L (3.5-5.2) Chloride Level 100mEq/L (97-108) Carbon Dioxide Level 24mmol/L (18-29) Blood Urea Nitrogen 10mg/dL (6-24) Creatinine 0.82mg/dL (0.76-1.27) Estimat Glomerular Filtration Rate 106mL/min (>59) Glucose Level 439mg/dL (60-99) Calcium Level 8.5mg/dL (8.5-10.1) Total Bilirubin 0.3mg/dL (0.0-1.2) Aspartate Amino Transf (AST/SGOT) 13U/L (0-50) Alanine Aminotransferase (ALT/SGPT) 11U/L (0-44) Alkaline Phosphatase 132U/L (25-150) Troponin T 0.010ug/L (0.0-0.011) Total Protein 6.3g/dL (6.4-8.4) Albumin 3.7g/dL (3.4-5.0) Hold Pereyra Top Tube Received (Received) ECG Interpretation ECG Interpretation: Sinus rate 60 No acute ischemia Time: 12:52 Interpreted by: ED physician Re-Eval/Medical Decision Med Decision/Clinical Course 07/15/17 120, 15mg Oxycodone filled by Dr. Santiago Funez ] Spoke with Dr. Funez's associate and informed him of pt's frequent ED visits that are always with IV morphine 1446 No dangerous condition discovered. I do not believe further workup is indicated at this time. Discharged to home. Consultation : Consulted With: Primary care physician Call Returned at: 14:15 Note: Discussed pt's case with an associate of pt's PCP. Discussed possibility of pain plan agreement due to multiple oxycodone prescriptions and frequent ED visits with IV morphine. States pt signed pain contract on 07/08/17. Discharge & Departure Primary Impression: Chest pain Disposition: Home Discharge Condition All VS Reviewed: Yes Condition: Stable Patient Instructions: Chest Pain (ED) Additional Instructions: No evidence of acute coronary ischemia. EKG and labs or tests are reassuring. I recommend follow up with your doctor to discuss strategies for managing this. Referrals: Santiago Funez MD (PCP) Cindy Attestation Portions of this note were transcribed by Lupillo Worthington. I, Dr. Salazar personally performed the history, physical exam and medical decision-making; I reviewed and confirmed the accuracy of the information in the transcribed note. Signed by: Cindy Cabral, 07/25/17 copies to: Santiago Funez MD, Kirk H MD Jul 25, 2017 13:07 LUPILLO WORTHINGTON Jul 25, 2017 13:18
[2017-07-25 13:31] LABS: BASOPHILS % (AUTO) 0.2 % (0-3); EOSINOPHILS % (AUTO) 0.4 % (0-5); MONOCYTES % (AUTO) 6.7 % (4-12); Mean Corpuscular Hemoglobin 29.7 pg (27.0-35.0); Mean Corpuscular Volume 85.4 fL (81-100); NEUTROPHILS % (AUTO) 75.8 % (40-74); Platelet Count 226 bil/L (150-400)
[2017-07-25 13:52] VITALS: BP 127/69; PULSE 56; RESP 21; O2SAT 95
[2017-07-25 13:56] LABS: TROPONIN T 0.01 ug/L (0.0-0.011)
[2017-07-25 14:39] VITALS: BP 108/56; PULSE 66; RESP 16; O2SAT 94
[2017-07-25 14:54] VITALS: BP 108/56; PULSE 66; RESP 16; O2SAT 94
[2017-07-26] MEDS ORDERED: ZOLP5TAB6 PO ×2 (20:36→20:47)
== END 2017-07-25 14:56 | disposition home or self-care (01) ==
LOC: SED 12:41
DX: R07.9 Chest pain, unspecified (principal); R06.02 Shortness of breath; R11.10 Vomiting, unspecified; I11.0 Hypertensive heart disease with heart failure; I50.9 Heart failure, unspecified; I25.10 Atherosclerotic heart disease of native coronary artery without angina pectoris; K21.9 Gastro-esophageal reflux disease without esophagitis; I25.2 Old myocardial infarction; J44.9 Chronic obstructive pulmonary disease, unspecified; E11.59 Type 2 diabetes mellitus with other circulatory complications; F17.200 Nicotine dependence, unspecified, uncomplicated; Z79.01 Long term (current) use of anticoagulants; Z86.73 Personal history of transient ischemic attack (TIA), and cerebral infarction without residual deficits; Z95.5 Presence of coronary angioplasty implant and graft; Z79.82 Long term (current) use of aspirin; Z79.4 Long term (current) use of insulin; Z88.0 Allergy status to penicillin; Z88.5 Allergy status to narcotic agent; Z88.8 Allergy status to other drugs, medicaments and biological substances; Z91.030 Bee allergy status; Z91.048 Other nonmedicinal substance allergy status
CPT/HCPCS: 36415; 80053; 84484; 85025; 93005; 96374; 96376; 99285; J2270

== ENCOUNTER 2017-07-25 18:23 | Emergency (ER) | payer OTHER ==
[~2017-07-25] VITALS: Ht 172.7 cm; Wt 118.2 kg
[2017-07-25 18:27] VITALS: BP 129/75; PULSE 63; RESP 20; O2SAT 96
[2017-07-25 19:06] VITALS: BP 138/69; PULSE 52; RESP 18; O2SAT 97
--- NOTE | 2017-07-25 19:19 | ED.REPORT ---
HPI-Chest Pain 40 and Over Date of Service Jul 25, 2017 ED Provider: Dr. Price Pt is a 47 year old male with a hx of unstable angina, DM, HTN, CHF, and COPD presenting to the ED complaining of chest pain, SOB and vomiting onset at 0330. He last had a cath 5 months ago and was recommended for a CABG. The pain radiates into his left arm and shoulder, and he also has a headache. The pt was seen here earlier today and his pain resolved but returned when he was at home. Denies fever or chills. Nursing Notes Stated Complaint: CHEST PAIN AND VOMITING Chief Complaint: Chest Pain Nursing Notes Reviewed: Yes Allergies: Coded Allergies: Honey Bee (Verified Allergy, Severe, anaphylaxis, 07/25/17) Penicillins (Verified Allergy, Severe, SWELLING, HIVES, ITCHING, 07/25/17) TAPE (Verified Allergy, Mild, blisters, 07/25/17) levetiracetam (Verified Allergy, Unknown, 07/25/17) "Sleep all day long" hydromorphone (Verified Adverse Reaction, Intermediate, HALLUCINATIONS, "HIGH", 07/25/17) sumatriptan (Verified Adverse Reaction, Intermediate, CONVULSIONS, SHAKES , 07/25/17) Scheduled Allopurinol (Allopurinol) 300 Mg Tablet 300 MG PO HS Aspirin (Aspirin) 325 Mg Tablet 325 MG PO QAM Atorvastatin (Lipitor) 80 Mg Tablet 80 MG PO HS Clopidogrel (Clopidogrel) 75 Mg Tablet 75 MG PO QAM Finasteride (Finasteride) 5 Mg Tablet 5 MG PO QAM Fluoxetine (Fluoxetine) 40 Mg Capsule 40 MG PO QAM Gabapentin (Gabapentin) 600 Mg Tablet 600 MG PO BID Insulin Glargine (Lantus U100 Insulin Vial) 100 Unit/Ml Vial 80 UNIT SUBQ BID Insulin Regular, Human (HUMulin-R U100 Insulin Vial) 100 Unit/1 Ml Vial 40-60 UNIT SUBQ BIDWM BREAKFAST AND DINNER Insulin Regular, Human (HUMulin-R U100 Insulin Vial) 100 Unit/1 Ml Vial 2-20 UNIT SUBQ ACHS SLIDING SCALE Isosorbide MN ER (Isosorbide MN ER) 60 Mg Tab.er.24h 60 MG PO QAM Lisinopril (Lisinopril) 2.5 Mg Tablet 2.5 MG PO QAM Metoprolol Succinate ER (Metoprolol Succinate ER) 25 Mg Tab.er.24h 12.5 MG PO QAM Pantoprazole DR (Pantoprazole DR) 40 Mg Tablet.dr 40 MG PO QAM Scheduled PRN Albuterol HFA (Proair HFA) 8.5 Gm Hfa.aer.ad 2 PUFFS INHALATION QID PRN PRN For Shortness of Breath Ibuprofen (Ibuprofen) 200 Mg Capsule 600 MG PO BID PRN PRN For Pain Nicotine 21 mg/24 hr Patch (Nicotine 21 mg/24 hr Patch) 1 Each Patch.dysq 1 PATCH TRANSDERM DAILY PRN PRN NICOTINE WITHDRAWAL Nitroglycerin SL (Nitroglycerin SL) 0.4 Mg Tab.subl 0.4 MG SL Q5MIN PRN PRN For Chest Pain only one tab at a time, wait at least 5 min before the next one Nitroglycerin SL (Nitrostat) 0.4 Mg Tab.subl 0.4 MG SL Q5MIN PRN PRN For Chest Pain only one tab at a time, wait 5 min before taking next tab Ondansetron (Ondansetron) 8 Mg Tablet 8 MG PO Q6H PRN PRN For Nausea/Vomiting oxyCODONE (oxyCODONE) 10 Mg Tablet 10 MG PO Q4H PRN PRN For Pain General Time Seen by MD: 19:18 Chief Complaint Chest pain Hx Obtained From: Patient Arrived By: Walk-in Sudden in Onset?: Yes Onset Occurred: 13 - 16 hours ago Symptom Duration: Since onset Location: : Chest left: Shoulder left Quality: Painful Severity: Current: Severe Severity: Maximum: Severe Recent Healthcare: Recent doctor visit, Recent hospitalization Similar Sx Previous: Yes Past Medical History Past Medical History 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 Nickerson Multiple ED visits for CP, hospitalist diagnosis of narcotic seeking behavior Past Medical History Unstable angina CAD - multiple stents, cardiac caths 02/14, 03/12, 04/11, ad 04/17 w/stent placed to proximal LAD overlapping prior stent and "plavix non-responder" Syncope Type two diabetes with neuropathy Chronic back, neck, and leg pain Lower extremity DVT "years ago" per patient, details unclear History of migraines BPH Kidney Stones On Warfarin and Plavix Seizure Spinal meningitis [place] 2014 Concern for TIA October 2016, MRI/MRA negative Reports: COPD, Congestive heart failure, GERD, Hypertension, Stroke Reports: Heroin use Past Surgical History Shoulder surgery (joint replacement) Left knee surgery Ganglion cyst in right hand Cardiac stents ("x9" - at [facility]) Artery repair x2 Reports: Cholecystectomy Family History Both of the patient's parents are still alive Smoking History Current Every Day Smoker Social History Alcohol Use: Denies alcohol use Drug Use: Denies drug use Other Social History: Good social support, Frequent ED visitor, , Local resident 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 Physical Exam Initial Vital Signs Vital Signs (First) Date Time Temp Pulse Resp B/P Pulse Ox O2 Delivery O2 Flow Rate FiO2 07/25/17 18:27 36.9 63 20 129/75 96 Room Air Initial VS: Reviewed, Vital signs normal Head / Eyes: Atraumatic, Normocephalic, PERRL ENT: Mucous membranes moist, Conjunctiva normal, No scleral icterus Extremities: Vascular intact, Neuro intact, No swelling, No tenderness Skin: Warm, Dry, No cyanosis Neurologic: Alert, Oriented, Nonfocal Psychiatric: Mood/affect normal, Behavior normal, Normal thought content General/Constitutional: Awake, Alert Respiratory / Chest: Atraumatic, No respiratory distress Wheeze/squeak on the left Cardiovascular: Heart rate NL, Regular rhythm, Heart sounds NL Abdomen: Atraumatic, Soft, Non-tender Interpretation & Diagnostics Lab Results Interpretation Test 07/25/17 19:20 Hold Purple Top Tube Received (Received) Troponin T 0.010ug/L (0.0-0.011) Hold Pereyra Top Tube Received (Received) ECG Interpretation ECG Interpretation: Sinus bradycardia at 53. Increased QT at 495. No acute ST or T wave changes. Similar to his EKG from earlier today. Time: 12:52 Interpreted by: ED physician Normal ECG Interpretation: No acute ischemic changes X-Ray Chest Interpretation Chest Xray Interpretation: Negative View: AP & lat Interpretation / Wet Read by: Wet read ED physician Re-Eval/Medical Decision Med Decision/Clinical Course The patient presented with ongoing chest pain, he has a history of chronic chest pain as well as significant cardiovascular disease. The patient was seen earlier today with normal troponin and EKG. He had those repeated and they continue to be normal. Given the duration of his pain with 2 normal EKGs and troponins he is ruled out for an SC. In looking at his prior visit he stated the pain started at 3:30 AM. The patient requested narcotic pain medication but I explained to him that he needs to see his primary care doctor for ongoing treatment of his chronic pain. The patient also had nausea and an episode of vomiting which he says he gets when he has severe pain. His physical exam was unremarkable, he does not have any abdominal discomfort on exam. In looking at his records from this afternoon he does not have any findings worrisome for cholecystitis. Time of Eval: 19:54 Patient Status: Condition improved Re-Evaluation/Progress Note: Pt reports that he has been having chest pain whenever he exerts himself, and that he does not normally have trouble sleeping. Pt took oxycodone at home around 1200, and took 2 Nitro before arrival. Time of Eval: 20:29 Patient Status: Condition improved Re-Evaluation/Progress Note: Pt reports that he is having worsened pain. Discussed plan for discharge. Pt understands and agrees with plan. Time of Eval: 21:20 Patient Status: Condition improved Re-Evaluation/Progress Note: Informed of radiology results. Counseled Regarding: Diagnosis, Lab results, Need for follow-up, When/why to return to ED Discharge & Departure Primary Impression: Chest pain Chest pain type: unspecified Qualified Code: R07.9 - Chest pain, unspecified Additional Impression: Unstable angina Disposition: Home Discharge Condition All VS Reviewed: Yes Condition: Improved Patient Instructions: Chest Pain (ED), Angina (ED) Additional Instructions: Your EKG and lab results did not show any sign of a heart attack, and they were unchanged from earlier today. Please follow up with your entry tech and your primary care doctor in the next few days. They will be able to do more for your chronic pain than we can here in the emergency room. Return to the emergency room if you develop any new or worsening symptoms. Referrals: Santiago Funez MD (PCP) Tyrese Gant MDibrudolph Attestation Portions of this note were transcribed by Nadine Strange. I, Dr. Price personally performed the history, physical exam and medical decision-making; I reviewed and confirmed the accuracy of the information in the transcribed note. Signed by : Cindy Moreland, 07/25/2017. copies to: Santiago Funez MD; Tyrese Gant MD, Jena M MD Jul 25, 2017 19:19 NADINE SRTANGE Jul 25, 2017 19:39
[2017-07-25 20:06] VITALS: BP 140/94; PULSE 57; RESP 20; O2SAT 93
[2017-07-25] MEDS ORDERED: _Ondansetron ODT 4 mg Tablet PO PRN (21:25)
--- NOTE | 2017-07-25 21:38 | DRSVH ---
PROCEDURE: X-RAY CHEST, TWO VIEWS ([id number]) INDICATIONS: shortness of breath TECHNIQUE: 2 views of the chest were acquired. COMPARISON: None. FINDINGS: Surgical changes and devices: None. Lungs and pleura: No pleural effusions or pneumothorax. Streaky retrocardiac opacities, and mild rig ht basilar patchy opacities probably aspiration/atelectasis. Mediastinum: Mediastinal contours are normal. Heart size is normal. Bones and chest wall: No suspicious bony abnormalities. Soft tissues appear unremarkable. IMPRESSION: Streaky and patchy bibasilar opacities, left greater than right suggestive of low-grade a spiration/atelectasis. Recommend clinical correlation to exclude pneumonia. Dictated by: Jose Smtih M.D. on 07/25/2017 at 21:29 Approved by: Jose Smith M.D. on 07/25/2017 at 21:37
[2017-07-25 21:51] VITALS: BP 126/73; PULSE 65; RESP 18; O2SAT 95
[2017-07-26] MEDS ORDERED: ZOLP5TAB6 PO ×2 (20:36→20:47)
== END 2017-07-25 22:07 | disposition home or self-care (01) ==
LOC: SED 18:23
DX: R07.89 Other chest pain (principal); I20.0 Unstable angina; I11.0 Hypertensive heart disease with heart failure; I50.9 Heart failure, unspecified; I25.2 Old myocardial infarction; I25.10 Atherosclerotic heart disease of native coronary artery without angina pectoris; J44.9 Chronic obstructive pulmonary disease, unspecified; K21.9 Gastro-esophageal reflux disease without esophagitis; E11.59 Type 2 diabetes mellitus with other circulatory complications; E11.40 Type 2 diabetes mellitus with diabetic neuropathy, unspecified; F17.200 Nicotine dependence, unspecified, uncomplicated; Z79.4 Long term (current) use of insulin; Z79.82 Long term (current) use of aspirin; Z79.01 Long term (current) use of anticoagulants; Z86.73 Personal history of transient ischemic attack (TIA), and cerebral infarction without residual deficits; Z87.01 Personal history of pneumonia (recurrent); Z95.5 Presence of coronary angioplasty implant and graft; Z88.0 Allergy status to penicillin; Z88.5 Allergy status to narcotic agent; Z91.030 Bee allergy status; Z91.048 Other nonmedicinal substance allergy status

== ENCOUNTER 2017-07-26 17:02 | Emergency (ER) | payer OTHER ==
[~2017-07-26] VITALS: Ht 172.7 cm; Wt 118.2 kg
[2017-07-26 17:10] VITALS: BP 102/60; PULSE 63; RESP 16; O2SAT 97
[2017-07-26 18:25] LABS: BASOPHILS % (AUTO) 0.4 % (0-3); EOSINOPHILS % (AUTO) 0.7 % (0-5); MONOCYTES % (AUTO) 7.1 % (4-12); Mean Corpuscular Hemoglobin 29.3 pg (27.0-35.0); NEUTROPHILS % (AUTO) 71.3 % (40-74); Platelet Count 201 bil/L (150-400)
[2017-07-26 19:23] LABS: TROPONIN T < 0.010 ug/L (0.0-0.011)
--- NOTE | 2017-07-26 20:10 | ED.REPORT ---
HPI-Chest Pain 40 and Over Date of Service Jul 26, 2017 ED Provider: Darling Price MD Pt is a 47 year old male with a history of HTN, CHF, 9 cardiac stents, and COPD who presents to the ED complaining of unrelieved chest pain onset yesterday. He c/o associated vomiting, weakness, and dizziness. He denies fever, chills, nausea, and current SOB. The pt reports that he took 4 nitro without relief prior to arrival. He rates his pain as an 8/10, stating that it radiates to his back and into his left arm. Pt also c/o insomnia secondary to the pain. Pt presented to the ED on 07/25/17 twice with his symptoms and he was discharged with a diagnosis of chest pain and unstable angina. Nursing Notes Stated Complaint: CHEST PAIN,VOMITING Chief Complaint: Chest Pain Nursing Notes Reviewed: Yes Allergies: Coded Allergies: Honey Bee (Verified Allergy, Severe, anaphylaxis, 07/25/17) Penicillins (Verified Allergy, Severe, SWELLING, HIVES, ITCHING, 07/25/17) TAPE (Verified Allergy, Mild, blisters, 07/25/17) levetiracetam (Verified Allergy, Unknown, 07/25/17) "Sleep all day long" hydromorphone (Verified Adverse Reaction, Intermediate, HALLUCINATIONS, "HIGH", 07/25/17) sumatriptan (Verified Adverse Reaction, Intermediate, CONVULSIONS, SHAKES , 07/25/17) Scheduled Allopurinol (Allopurinol) 300 Mg Tablet 300 MG PO HS Aspirin (Aspirin) 325 Mg Tablet 325 MG PO QAM Atorvastatin (Lipitor) 80 Mg Tablet 80 MG PO HS Clopidogrel (Clopidogrel) 75 Mg Tablet 75 MG PO QAM Finasteride (Finasteride) 5 Mg Tablet 5 MG PO QAM Fluoxetine (Fluoxetine) 40 Mg Capsule 40 MG PO QAM Gabapentin (Gabapentin) 600 Mg Tablet 600 MG PO BID Insulin Glargine (Lantus U100 Insulin Vial) 100 Unit/Ml Vial 80 UNIT SUBQ BID Insulin Regular, Human (HUMulin-R U100 Insulin Vial) 100 Unit/1 Ml Vial 40-60 UNIT SUBQ BIDWM BREAKFAST AND DINNER Insulin Regular, Human (HUMulin-R U100 Insulin Vial) 100 Unit/1 Ml Vial 2-20 UNIT SUBQ ACHS SLIDING SCALE Isosorbide MN ER (Isosorbide MN ER) 60 Mg Tab.er.24h 60 MG PO QAM Lisinopril (Lisinopril) 2.5 Mg Tablet 2.5 MG PO QAM Metoprolol Succinate ER (Metoprolol Succinate ER) 25 Mg Tab.er.24h 12.5 MG PO QAM Pantoprazole DR (Pantoprazole DR) 40 Mg Tablet.dr 40 MG PO QAM Scheduled PRN Albuterol HFA (Proair HFA) 8.5 Gm Hfa.aer.ad 2 PUFFS INHALATION QID PRN PRN For Shortness of Breath Ibuprofen (Ibuprofen) 200 Mg Capsule 600 MG PO BID PRN PRN For Pain Nicotine 21 mg/24 hr Patch (Nicotine 21 mg/24 hr Patch) 1 Each Patch.dysq 1 PATCH TRANSDERM DAILY PRN PRN NICOTINE WITHDRAWAL Nitroglycerin SL (Nitroglycerin SL) 0.4 Mg Tab.subl 0.4 MG SL Q5MIN PRN PRN For Chest Pain only one tab at a time, wait at least 5 min before the next one Nitroglycerin SL (Nitrostat) 0.4 Mg Tab.subl 0.4 MG SL Q5MIN PRN PRN For Chest Pain only one tab at a time, wait 5 min before taking next tab Ondansetron (Ondansetron) 8 Mg Tablet 8 MG PO Q6H PRN PRN For Nausea/Vomiting Zolpidem (Zolpidem) 5 Mg Tablet 2.5 MG PO HS PRN PRN For Insomnia oxyCODONE (oxyCODONE) 10 Mg Tablet 10 MG PO Q4H PRN PRN For Pain General Time Seen by MD: 20:09 Chief Complaint Chest pain Hx Obtained From: Patient Arrived By: Walk-in Sudden in Onset?: No Onset Occurred: Yesterday Quality: Painful Radiation: : Does not radiate Migration/Movement: Reports: None Severity: Current: Pain level 8 out of 10 Severity: Maximum: Severe Recent Healthcare: Recent doctor visit Similar Sx Previous: Yes Past Medical History Past Medical History 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 Nickerson Multiple ED visits for CP, hospitalist diagnosis of narcotic seeking behavior Past Medical History Unstable angina CAD - multiple stents, cardiac caths 02/14, 03/12, 04/11, ad 04/17 w/stent placed to proximal LAD overlapping prior stent and "plavix non-responder" Syncope Type two diabetes with neuropathy Chronic back, neck, and leg pain Lower extremity DVT "years ago" per patient, details unclear History of migraines BPH Kidney Stones On Warfarin and Plavix Seizure Spinal meningitis ID 2014 Concern for TIA October 2016, MRI/MRA negative Reports: COPD, Congestive heart failure, GERD, Hypertension, Stroke Reports: Heroin use Past Surgical History Shoulder surgery (joint replacement) Left knee surgery Ganglion cyst in right hand Cardiac stents ("x9" - at [facility]) Artery repair x2 Reports: Cholecystectomy Family History Both of the patient's parents are still alive Smoking History Current Every Day Smoker Social History Alcohol Use: Denies alcohol use Drug Use: Denies drug use Other Social History: Good social support, Frequent ED visitor, , Local resident 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 Physical Exam Initial Vital Signs Vital Signs (First) Date Time Temp Pulse Resp B/P Pulse Ox O2 Delivery O2 Flow Rate FiO2 07/26/17 17:10 37.4 63 16 102/60 97 Room Air Initial VS: Reviewed, Vital signs normal Head / Eyes: Atraumatic, Normocephalic Neck: Supple, Full range of motion Extremities: Vascular intact, Neuro intact Skin: Warm, Dry, No cyanosis Neurologic: Alert, Oriented, Nonfocal Psychiatric: Mood/affect normal, Behavior normal General/Constitutional: Awake, Alert Respiratory / Chest: Atraumatic, Breath sounds NL, Breath sounds = bilat Cardiovascular: Heart rate NL, Regular rhythm, Heart sounds NL Abdomen: Atraumatic, Soft, Non-tender Interpretation & Diagnostics Lab Results Interpretation Result Diagram: 07/26/17 1800 Test 07/26/17 18:00 White Blood Count 10.7th/mm3 (3.8-10.1) Red Blood Count 4.60mil/mm3 (4.40-5.80) Hemoglobin 13.5g/dL (13.8-17.2) Hematocrit 39.1% (41.0-50.0) Mean Corpuscular Volume 85.0fL (81-100) Mean Corpuscular Hemoglobin 29.3pg (27.0-35.0) Mean Corpuscular Hemoglobin Concent 34.5% (32.0-37.0) Red Cell Distribution Width 12.9% (12.3-15.4) Platelet Count 201bil/L (150-400) Neutrophils (%) (Auto) 71.3% (40-74) Lymphocytes (%) (Auto) 20.4% (14-46) Monocytes (%) (Auto) 7.1% (4-12) Eosinophils (%) (Auto) 0.7% (0-5) Basophils (%) (Auto) 0.4% (0-3) Magnesium Level 2.0mg/dL (1.6-2.6) Troponin T < 0.010ug/L (0.0-0.011) Hold Pereyra Top Tube Received (Received) ECG Interpretation ECG Interpretation: Sinus bradycardia with a rate of [address] changes Probable left atrial enlargement Similar to ECG from 07/25/17 Time: 19:11 Interpreted by: ED physician Re-Eval/Medical Decision Med Decision/Clinical Course The patient is well known to the emergency department, he was here twice yesterday. The patient has significant disease and has chronic chest pain as well, there is a component of opiate dependence. The patient's evaluation again was unremarkable with a normal troponin and given the duration of pain he is ruled out for ID, this is third troponin in 24 hours. The patient's other complaint was insomnia, he is on multiple medications at interact so he was started on a very low-dose of Ambien. It was stressed to him and his to make sure they do not go over the dose as it could cause significant respiratory difficulty. Source of Hx: Old records Time of Eval: 20:21 Re-Evaluation/Progress Note: Informed pt of reassuring ECG and troponin, indicating that his pain is not related to his heart. Offered pt medication to help him sleep due to his complaints of insomnia, and he accepted. Informed pt of plan for discharge. Pt understands and agrees with plan for discharge. F/U instructions and RTER warnings given. All questions addressed. Counseled Regarding: Diagnosis, Lab results, Need for follow-up, When/why to return to ED Discharge & Departure Primary Impression: Chest pain Chest pain type: unspecified Qualified Code: R07.9 - Chest pain, unspecified Additional Impression: Insomnia Insomnia type: due to medical condition Qualified Code: G47.01 - Insomnia due to medical condition Disposition: Home Discharge Condition All VS Reviewed: Yes Condition: Stable Patient Instructions: Chest Pain (ED), Insomnia (ED) Additional Instructions: Thank you for entrusting us with your care today. Your ECG and labs are reassuring. You don't have signs of a heart attack. Do not take more than 1/2 a pill of the Zolpidem, as it can interact with your other medications and it can be very dangerous. Call your primary care provider on Friday for a follow up appointment next week. Return to the emergency department for any new or concerning symptoms. Referrals: Santiago Funez MD (PCP) Najma Jackman MD Attestation Portions of this note were transcribed by Meghna Gonzalez. I, Dr. Price personally performed the history, physical exam and medical decision-making; I reviewed and confirmed the accuracy of the information in the transcribed note. Signed by : Cindy Marquis, 07/26/17. copies to: Santiago Funez MD, Jena M MD Jul 26, 2017 20:10 Meghna Mckinney Jul 26, 2017 20:28
[2017-07-26] MEDS ORDERED: ZOLP5TAB6 PO ×2 (20:36→20:47)
[2017-07-26 20:45] VITALS: BP 97/54; PULSE 57; RESP 20; O2SAT 97
[2017-07-26 20:56] VITALS: BP 97/54; PULSE 57; RESP 20; O2SAT 97
== END 2017-07-26 20:56 | disposition home or self-care (01) ==
LOC: SED 17:02
DX: R07.9 Chest pain, unspecified (principal); G47.00 Insomnia, unspecified; R42 Dizziness and giddiness; R53.1 Weakness; I11.0 Hypertensive heart disease with heart failure; I50.9 Heart failure, unspecified; I25.2 Old myocardial infarction; I25.10 Atherosclerotic heart disease of native coronary artery without angina pectoris; J44.9 Chronic obstructive pulmonary disease, unspecified; E11.59 Type 2 diabetes mellitus with other circulatory complications; E11.40 Type 2 diabetes mellitus with diabetic neuropathy, unspecified; K21.9 Gastro-esophageal reflux disease without esophagitis; G43.909 Migraine, unspecified, not intractable, without status migrainosus; F17.200 Nicotine dependence, unspecified, uncomplicated; Z95.5 Presence of coronary angioplasty implant and graft; Z87.442 Personal history of urinary calculi; Z86.73 Personal history of transient ischemic attack (TIA), and cerebral infarction without residual deficits; Z79.01 Long term (current) use of anticoagulants; Z79.82 Long term (current) use of aspirin; Z79.4 Long term (current) use of insulin; Z88.0 Allergy status to penicillin; Z88.5 Allergy status to narcotic agent; Z88.8 Allergy status to other drugs, medicaments and biological substances; Z91.030 Bee allergy status; Z91.048 Other nonmedicinal substance allergy status